=== PATIENT | female | born 1965 | race American Indian/Alaskan Native ===

== ENCOUNTER 2017-02-28 09:01 | Day surgery (SDC) | payer OTHER ==
[2017-01-07 04:00] VITALS: BMI 37.9
[2017-02-28 09:40] LABS: ADD MANUAL DIFF? NO
[2017-02-28 09:42] VITALS: RESP 18; O2SAT 100
[2017-02-28 09:42] LABS: BASO # 0.01 K/mm3 (0.0-2.0); BASO % 0.1 % (0.0-3.0); EOS # 0.2 (0.0-0.7); EOS % 2.2 % (1.5-5.0); GRAN # 4.24 (1.4-6.5); GRAN % 58.7 % (50.0-68.0); LYMPH % 27.6 % (22.0-35.0); MEAN CELL VOLUME 76.9 fL (80.0-105.0); MEAN CORPUSCULAR HEMOGLOBIN 24.8 pg (25.0-35.0); MEAN CORPUSCULAR HGB CONC 32.2 g/dl (31.0-37.0); MEAN PLATELET VOLUME 9.3 fl (7.0-11.0); MONO # 0.8 (0.1-0.6); MONO % 11.4 % (1.0-6.0); PLATELET COUNT 399 10^3/uL (120.0-450.0); RED CELL DISTRIBUTION WIDTH 17.1 % (11.5-14.5); WHITE BLOOD COUNT 7.2 10^3/ul (4.5-11.0)
[2017-02-28 09:53] LABS: BLOOD UREA NITROGEN 18 mg/dL (7-21); CALCIUM 8.8 mg/dL (8.4-10.5); CARBON DIOXIDE 27 mmol/L (21-33); CHLORIDE 102 mmol/L (98-107); GFR AFRICAN-AMERICAN > 60; GLUCOSE,RANDOM 90 mg/dL (70-110); POTASSIUM 3.7 mmol/L (3.6-5.0); SODIUM 137 mmol/L (132-148)
--- NOTE | 2017-02-28 09:53 | CP.SDSHP ---
Same Day Surgery H & P - History Proposed Procedure: picc line change. Pre-Op Diagnosis: picc line, greater than [address] - Previous Medical/Surgical History Cardiac: Hypertension, ASHD/CAD, Hx of CHF Endocrine/Metabolic: Obesity Neuro: Backaches Misc: Anemia Pain: 0. No Pain Previous Surgical History: ,cardiac cath.pace maker - Allergies Allergies: Allergies acetaminophen Allergy (Verified 01/07/17 12:59) ANGIOEDEMA cefepime Allergy (Verified 01/07/17 12:59) ANAPHYLAXIS - Physical Exam General Appearance: wnl. Vital Signs: Vital Signs 02/28/17 09:20 Temperature 98.2 F Pulse Rate 75 Respiratory 18 Rate Blood Pressure 126/82 O2 Sat by Pulse 100 Oximetry Mental Status: Alert & Oriented x3 Neuro: WNL Heart: WNL Lungs: WNL GI: WNL - {Optional Preform as Required} Other Pertinent Findings: cardiomyopathy. - Impression Impression: picc line greater than [address] - Date & Time Date: 02/28/17 Time: 09:51 Short Stay Discharge - Short Stay Discharge Admitting Diagnosis/Reason for Visit: MILRINONE INFUSION Z79 Disposition: HOME/ ROUTINE Referrals: Carisa Armstrong MD [Primary Care Provider] -
[2017-02-28 09:54] LABS: INR 1.01 (0.93-1.08)
[2017-02-28 10:05] LABS: PARTIAL THROMBOPLASTIN TIME 69.7 Seconds (23.7-30.8)
[2017-02-28] MEDS ORDERED: Lidocaine 2% Inj (20ml) ONE (10:20)
[2017-02-28 11:38] VITALS: BP 128/79; PULSE 82; TEMP 97.9
--- NOTE | 2017-02-28 16:47 | VASCULAR ---
PROCEDURE: Ultrasound fluoroscopically placed PICC line HISTORY: Ischemic cardiomyopathy. Milrinone infusion. Needs PICC PHYSICIAN(S): Phil Bolton MD. TECHNIQUE: The relative risks and indication of the procedure were explained the patient and consent obtained. Patient placed supine on the arteriogram table in a right arm prepped and draped usual sterile fashion. A tourniquet was applied at the right axilla. Under direct ultrasound guidance, single wall puncture the right basilic vein was performed. 0.018 guidewire was advanced centrally in used to measure the length to the SVC/RA junction. A 5 [place] single lumen PICC line 41 cm long was advanced the SVC/RA junction. The catheter was flushed and secured. The patient tolerated the procedure well FINDINGS: . IMPRESSION: Ultrasound fluoroscopically placed right upper extremity PICC line.
== END 2017-02-28 12:15 | disposition home or self-care (01) ==
LOC: OPSURG 09:01
PROVIDERS: ATTEND Radiology Vascular & Interventional Radiology
DX: I25.5 Ischemic cardiomyopathy (principal); I11.0 Hypertensive heart disease with heart failure; I50.9 Heart failure, unspecified; I25.10 Atherosclerotic heart disease of native coronary artery without angina pectoris; D64.9 Anemia, unspecified; E66.9 Obesity, unspecified; Z68.37 Body mass index [BMI] 37.0-37.9, adult
CPT/HCPCS: 36415; 36569; 76937; 77001; 80048; 85025; 85610; 85730; C1751; J1644

== ENCOUNTER 2017-03-26 11:39 | Emergency (ER) | payer OTHER ==
--- NOTE | 2017-03-26 11:52 | ED PDOC ---
Arrival/HPI - General Chief Complaint: Shortness Of Breath Time Seen by Provider: 03/26/17 11:42 Historian: Patient - History of Present Illness Time/Duration: Other (This morning) Symptom Onset: Gradual Symptom Course: Unchanged Severity Level: Moderate Activities at Onset: Rest Associated Symptoms (Text): 03/26/17 11:49 Patient complains of chest pain dizziness dyspnea generalized weakness and fatigue and generalized body numbness which began this morning. She reports that this happens to her when she is anemic. She is currently on a Primacor outpatient drip. She is on the heart transplant list. Past Medical History - Infectious Disease Hx of Infectious Diseases: None - Tetanus Immunization Tetanus Immunization: Unknown - Cardiac Hx Cardiac Disorders: Yes (ENDOCARDITIS,CARDIOMYOPATHY,CAD,CARD CATH.,CVA L SIDED WEAKNESS) Hx Congestive Heart Failure: Yes Hx Hypertension: Yes Hx Internal Defibrillator: Yes Hx Pacemaker: Yes Other/Comment: ON PRIMACOR DRIP. - Pulmonary Hx Respiratory Disorders: Yes Hx Chronic Obstructive Pulmonary Disease (COPD): Yes (Denied by pt 09/12/16) Hx Pneumonia: Yes Hx Sleep Apnea: Yes (Denied by pt. 09/12/16) - Neurological Hx Neurological Disorder: Yes HX Cerebrovascular Accident: Yes (LEFT SIDED WEAKNESS H/O (Denied by pt 09/12/16) ) - HEENT Hx HEENT Disorder: Yes (Wears glasses.) - Renal Hx Renal Disorder: No - Endocrine/Metabolic Hx Endocrine Disorders: No - Hematological/Oncological Hx Blood Disorders: Yes Hx Blood Transfusions: Yes Hx Blood Transfusion Reaction: No - Integumentary Hx Dermatological Disorder: No - Musculoskeletal/Rheumatological Hx Musculoskeletal Disorders: Yes Hx Back Pain: Yes Hx Falls: No - Gastrointestinal Hx Gastrointestinal Disorders: Yes Hx Gastroesophageal Reflux: Yes HX Swallowing Problems: Yes - Genitourinary/Gynecological Hx Genitourinary Disorders: No - Psychiatric Hx Psychophysiologic Disorder: No Hx Substance Use: No - Surgical History Hx Cardiac Catheterization: Yes Hx Cholecystectomy: Yes - Anesthesia Hx Anesthesia Reactions: No Hx Malignant Hyperthermia: No - Suicidal Assessment Feels Threatened In Home Enviroment: No Family/Social History - Physician Review Nursing Documentation Reviewed: Yes Family/Social History: Unknown Family HX Smoking Status: Never Smoked Hx Alcohol Use: No Hx Substance Use: No Hx Substance Use Treatment: No Allergies/Home Meds Allergies/Adverse Reactions: Allergies acetaminophen Allergy (Verified 03/26/17 11:44) ANGIOEDEMA cefepime Allergy (Verified 03/26/17 11:44) ANAPHYLAXIS Home Medications: Home Meds Medication Instructions Recorded Confirmed Furosemide [Lasix] 40 mg PO DAILY 10/17/15 03/26/17 Carvedilol [Coreg] 25 mg PO BID 03/29/16 03/26/17 Spironolactone [Aldactone] 25 mg PO BID 03/29/16 03/26/17 Milrinone [Primacor] 1.24 mg IV .MGPER HOUR 03/30/16 03/26/17 Prednisolone [Millipred] 10 mg PO DAILY 06/11/16 03/26/17 Magnesium Oxide [Mag-Ox] 400 mg PO BID 01/01/17 03/26/17 Pantoprazole [Protonix EC Tab] 40 mg PO DAILY 01/01/17 03/26/17 Epinephrine HCl [Epipen 0.3 mg IM ONCE PRN 03/26/17 03/26/17 Auto-Injector] Review of Systems - Physician Review All systems were reviewed & negative as marked: Yes - Review of Systems Constitutional: Fatigue. absent: Fevers Respiratory: SOB. absent: Cough, Wheezing Cardiovascular: Chest Pain. absent: Palpitations, Syncope Gastrointestinal: absent: Abdominal Pain, Diarrhea, Nausea, Vomiting Neurological: Dizziness. absent: Headache, Focal Weakness Physical Exam Vital Signs Temp Pulse Resp BP Pulse Ox 03/26/17 12:02 18 100 03/26/17 11:50 98.0 F 89 18 142/90 100 Temperature: Afebrile Blood Pressure: Normal Pulse: Regular Respiratory Rate: Normal Appearance: Positive for: Well-Appearing, Non-Toxic, Comfortable, Other (Obese) Pain Distress: None Mental Status: Positive for: Alert and Oriented X 3 - Systems Exam Head: Present: Atraumatic, Normocephalic Pupils: Present: PERRL Extroacular Muscles: Present: EOMI Conjunctiva: Present: Normal Mouth: Present: Moist Mucous Membranes Pharnyx: No: ERYTHEMA, EXUDATE, TONSILS ENLARGED Neck: Present: Normal Range of Motion. No: MIDLINE TENDERNESS, Paraspinal Tenderness Respiratory/Chest: Present: Clear to Auscultation, Good Air Exchange, Decreased Breath Sounds. No: Respiratory Distress, Accessory Muscle Use Cardiovascular: Present: Regular Rate and Rhythm, Normal S1, S2. No: Murmurs Abdomen: Present: Normal Bowel Sounds. No: Tenderness, Distention, Peritoneal Signs, Rebound, Guarding Back: Present: Normal Inspection Upper Extremity: Present: Normal Inspection. No: Cyanosis, Edema Lower Extremity: Present: Normal Inspection. No: Edema Neurological: Present: GCS=15, CN II-XII Intact, Speech Normal, Motor Func Grossly Intact Skin: Present: Warm, Dry, Normal Color. No: Rashes Psychiatric: Present: Alert, Oriented x 3, Normal Insight, Normal Concentration Medical Decision Making ED Course and Treatment: 03/26/17 11:51 EKG shows normal sinus rhythm rate approximately [address] or T-wave changes 03/26/17 13:40 Patient's hemoglobin is adequate and similar to previous. Her workup is unrevealing. Patient wants to go home and will be discharged home accompanied by her to follow up with PMD and mailroom personnel. Follow up in ER as needed. - Lab Interpretations Lab Results: 03/26/17 12:00 03/26/17 12:00 Lab Results 03/26/17 12:00: Sodium 138, Potassium 4.0, Chloride 104, Carbon Dioxide 28, Anion Gap 10, BUN 19, Creatinine 0.8, Est GFR ( Amer) > 60, Est GFR (Non- Af Amer) > 60, Random Glucose 96, Calcium 8.9, Total Bilirubin 0.6, AST 38, ALT 38, Alkaline Phosphatase 67, Lactate Dehydrogenase 478, Total Creatine Kinase 28 L, Troponin I < 0.01, NT-Pro-B Natriuret Pep 1480 H, Total Protein 7.1, Albumin 3.6, Globulin 3.5, Albumin/Globulin Ratio 1.0 L 03/26/17 12:00: PT 10.7, INR 0.99, APTT 26.8 03/26/17 12:00: WBC 7.5, RBC 3.92, Hgb 9.6 L, Hct 30.2 L, MCV 77.0 L, MCH 24.5 L , MCHC 31.8, RDW 17.4 H, Plt Count 332, MPV 9.9, Gran % 71.7 H, Lymph % (Auto) 17.0 L, [place] % (Auto) 9.6 H, Eos % (Auto) 1.6, Baso % (Auto) 0.1, Gran # 5.39, Lymph # 1.3, [place] # 0.7 H, Eos # 0.1, Baso # 0.01 - RAD Interpretation Radiology Orders: 03/26/17 11:48 CHEST PORTABLE [RAD] Stat X-ray chest 1 view shows a device present. No infiltrate effusion or cardiomegaly. No CHF. Paste Worker: ED Physician Disposition/Present on Arrival - Present on Arrival Any Indicators Present on Arrival: No History of DVT/PE: No History of Uncontrolled Diabetes: No Urinary Catheter: No History of Decub. Ulcer: No History Surgical Site Infection Following: None - Disposition Have Diagnosis and Disposition been Completed?: Yes Diagnosis: Weakness, Chest pain, Anemia, Dyspnea Disposition: HOME/ ROUTINE Disposition Time: 13:41 Patient Plan: Discharge Condition: FAIR Discharge Instructions (ExitCare): Weakness (ED), Chest Pain (ED), Dyspnea (ED)
[2017-03-26 11:53] VITALS: RESP 18; TEMP 98; BMI 37.5
[2017-03-26 12:16] LABS: ADD MANUAL DIFF? NO
[2017-03-26 12:39] LABS: ALKALINE PHOSPHATASE 67 U/L (38-133); ALT/SGPT 38 U/L (7-56); AST/SGOT 38 U/L (15-39); BILIRUBIN,TOTAL 0.6 mg/dL (0.2-1.3); BLOOD UREA NITROGEN 19 mg/dL (7-21); CALCIUM 8.9 mg/dL (8.4-10.5); CARBON DIOXIDE 28 mmol/L (21-33); CHLORIDE 104 mmol/L (98-107); GFR AFRICAN-AMERICAN > 60; GLUCOSE,RANDOM 96 mg/dL (70-110); SODIUM 138 mmol/L (132-148); TOTAL PROTEIN 7.1 g/dL (5.8-8.3)
[2017-03-26 12:48] LABS: TROPONIN I < 0.01 ng/mL
[2017-03-26 12:59] LABS: BASO # 0.01 K/mm3 (0.0-2.0); BASO % 0.1 % (0.0-3.0); EOS # 0.1 (0.0-0.7); EOS % 1.6 % (1.5-5.0); GRAN # 5.39 (1.4-6.5); GRAN % 71.7 % (50.0-68.0); HEMATOCRIT 30.2 % (36.0-48.0); LYMPH # 1.3 (1.2-3.4); MEAN CORPUSCULAR HEMOGLOBIN 24.5 pg (25.0-35.0); MEAN CORPUSCULAR HGB CONC 31.8 g/dl (31.0-37.0); MEAN PLATELET VOLUME 9.9 fl (7.0-11.0); MONO # 0.7 (0.1-0.6); MONO % 9.6 % (1.0-6.0); PLATELET COUNT 332 10^3/uL (120.0-450.0); RED CELL DISTRIBUTION WIDTH 17.4 % (11.5-14.5); WHITE BLOOD COUNT 7.5 10^3/ul (4.5-11.0)
[2017-03-26 13:02] LABS: INR 0.99 (0.93-1.08); PARTIAL THROMBOPLASTIN TIME 26.8 Seconds (23.7-30.8)
--- NOTE | 2017-03-26 13:42 | RAD ---
HISTORY: cp COMPARISON: 01/07/2017 FINDINGS: LUNGS: No active pulmonary disease. PLEURA: No significant pleural effusion identified, no pneumothorax apparent. CARDIOVASCULAR: Normal heart size. AICD noted. Right PICC catheter. OSSEOUS STRUCTURES: No significant abnormalities. VISUALIZED UPPER ABDOMEN: Normal. OTHER FINDINGS: None. IMPRESSION: No active disease.
[2017-03-26 14:18] VITALS: BP 136/88; PULSE 82; O2SAT 98
--- NOTE | 2017-03-27 01:32 | CARD ---
APPROVED REPORT EKG Measurement Heart [id number] <Conclusion> Normal sinus rhythm Left ventricular hypertrophy with repolarization abnormality Abnormal ECG
== END 2017-03-26 14:18 | disposition home or self-care (01) ==
LOC: ED 11:39
DX: R07.9 Chest pain, unspecified (principal); D64.9 Anemia, unspecified; R06.00 Dyspnea, unspecified; R53.1 Weakness; I10 Essential (primary) hypertension; Z95.0 Presence of cardiac pacemaker

== ENCOUNTER 2017-04-13 01:07 | Emergency (ER) | payer OTHER ==
[2017-04-13 01:21] VITALS: TEMP 98.2
--- NOTE | 2017-04-13 01:28 | ED PDOC ---
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 Patient also reports a flushed sensation. Patient denies any fever, chills, chest pain, nausea, vomiting, diarrhea, urinary symptoms, back pain, neck pain, headache, dizziness, or any other complaints. Patient is currently on heart transplant list. PMD: Dr. Giovanni Armstrong ([facility]) Past Medical History - Provider Review Nursing Documentation Reviewed: Yes - Infectious Disease Hx of Infectious Diseases: None - Tetanus Immunization Tetanus Immunization: Unknown - Cardiac Hx Cardiac Disorders: Yes (ENDOCARDITIS,CARDIOMYOPATHY,CAD,CARD CATH.,CVA L SIDED WEAKNESS) Hx Congestive Heart Failure: Yes Hx Hypertension: Yes Hx Internal Defibrillator: Yes Hx Pacemaker: Yes Other/Comment: ON PRIMACOR DRIP. - Pulmonary Hx Respiratory Disorders: Yes Hx Chronic Obstructive Pulmonary Disease (COPD): Yes (Denied by pt 09/12/16) Hx Pneumonia: Yes Hx Sleep Apnea: Yes (Denied by pt. 09/12/16) - Neurological Hx Neurological Disorder: Yes HX Cerebrovascular Accident: Yes (LEFT SIDED WEAKNESS H/O (Denied by pt 09/12/16) ) - HEENT Hx HEENT Disorder: Yes (Wears glasses.) - Renal Hx Renal Disorder: No - Endocrine/Metabolic Hx Endocrine Disorders: No - Hematological/Oncological Hx Blood Disorders: Yes Hx Blood Transfusions: Yes Hx Blood Transfusion Reaction: No - Integumentary Hx Dermatological Disorder: No - Musculoskeletal/Rheumatological Hx Musculoskeletal Disorders: Yes Hx Back Pain: Yes Hx Falls: No - Gastrointestinal Hx Gastrointestinal Disorders: Yes Hx Gastroesophageal Reflux: Yes HX Swallowing Problems: Yes - Genitourinary/Gynecological Hx Genitourinary Disorders: No - Psychiatric Hx Psychophysiologic Disorder: No Hx Substance Use: No - Surgical History Hx Cardiac Catheterization: Yes Hx Cholecystectomy: Yes - Anesthesia Hx Anesthesia Reactions: No Hx Malignant Hyperthermia: No - Suicidal Assessment Feels Threatened In Home Enviroment: No Family/Social History - Physician Review Nursing Documentation Reviewed: Yes Family/Social History: No Known Family HX Smoking Status: Never Smoked Hx Alcohol Use: No Hx Substance Use: No Hx Substance Use Treatment: No Allergies/Home Meds Allergies/Adverse Reactions: Allergies acetaminophen Allergy (Verified 03/26/17 11:44) ANGIOEDEMA cefepime Allergy (Verified 03/26/17 11:44) ANAPHYLAXIS Home Medications: Home Meds Medication Instructions Recorded Confirmed Furosemide [Lasix] 40 mg PO DAILY 10/17/15 03/26/17 Carvedilol [Coreg] 25 mg PO BID 03/29/16 03/26/17 Spironolactone [Aldactone] 25 mg PO BID 03/29/16 03/26/17 Milrinone [Primacor] 1.24 mg IV .MGPER HOUR 03/30/16 03/26/17 Prednisolone [Millipred] 10 mg PO DAILY 06/11/16 03/26/17 Magnesium Oxide [Mag-Ox] 400 mg PO BID 01/01/17 03/26/17 Pantoprazole [Protonix EC Tab] 40 mg PO DAILY 01/01/17 03/26/17 Epinephrine HCl [Epipen 0.3 mg IM ONCE PRN 03/26/17 03/26/17 Auto-Injector] Review of Systems - Physician Review All systems were reviewed & negative as marked: Yes - Review of Systems Constitutional: Normal. absent: Fevers Eyes: Normal ENT: Normal Respiratory: SOB. absent: Cough Cardiovascular: Normal. absent: Chest Pain Gastrointestinal: Normal. absent: Abdominal Pain, Diarrhea, Nausea, Vomiting Genitourinary Female: Normal. absent: Dysuria, Frequency, Hematuria, Urine Output Changes Musculoskeletal: Normal. absent: Back Pain, Neck Pain Skin: Normal. absent: Rash Neurological: Normal. absent: Headache, Dizziness Endocrine: Normal Hemo/Lymphatic: Normal Psychiatric: Normal Physical Exam Vital Signs Reviewed: Yes Temperature: Afebrile Blood Pressure: Hypertensive Pulse: Regular Respiratory Rate: Normal Appearance: Positive for: Well-Appearing, Non-Toxic, Comfortable Pain Distress: None Mental Status: Positive for: Alert and Oriented X 3 - Systems Exam Head: Present: Atraumatic, Normocephalic Pupils: Present: PERRL Extroacular Muscles: Present: EOMI Conjunctiva: Present: Normal Mouth: Present: Moist Mucous Membranes Neck: Present: Normal Range of Motion Respiratory/Chest: Present: Wheezes. No: Respiratory Distress, Accessory Muscle Use Cardiovascular: Present: Regular Rate and Rhythm, Normal S1, S2. No: Murmurs Abdomen: Present: Normal Bowel Sounds. No: Tenderness, Distention, Peritoneal Signs Back: Present: Normal Inspection Upper Extremity: Present: Normal Inspection. No: Cyanosis, Edema Lower Extremity: Present: Normal Inspection. No: Edema Neurological: Present: GCS=15, CN II-XII Intact, Speech Normal Skin: Present: Warm, Dry, Normal Color. No: Rashes Psychiatric: Present: Alert, Oriented x 3, Normal Insight, Normal Concentration Vital Signs Temp Pulse Resp BP Pulse Ox 04/13/17 14:32 76 15 132/80 100 04/13/17 10:55 75 15 131/85 100 04/13/17 09:17 76 15 132/90 100 04/13/17 07:42 82 154/104 H 04/13/17 06:53 146/103 H 04/13/17 06:49 89 20 146/103 H 100 04/13/17 04:19 73 17 127/88 98 04/13/17 04:06 123/77 04/13/17 01:35 22 100 04/13/17 01:28 77 20 137/76 100 04/13/17 01:20 98.2 F 86 18 172/98 H 99 Medical Decision Making - Lab Interpretations I have reviewed the lab results: Yes - RAD Interpretation Engineering Coordinator: ED Physician - EKG Interpretation Interpreted by ED Physician: Yes Type: 12 lead EKG ED Course and Treatment: Leaving Against Medical Advice (AMA): This patient is choosing to leave against medical advice. I have personally explained to the patient that choosing to do so may result in permanent bodily harm or . I have discussed at great length that without further evaluation and monitoring there may be unforeseen circumstances and/or deterioration causing permanent bodily harm or as a result of their choice. The patient is alert, oriented, and shows the mental capacity to make clear decisions regarding the patients health care at this time. The patient continues to wish to leave against medical advice. In light of the patients decision to leave AMA, follow-up has been arranged and the patient is aware of the importance of following up as instructed. The patient has been advised that they should return to the ED immediately if they change their mind at any time, or if their condition begins to change or worsen in any way. (SabaGarett L) 04/13/17 01:28 Impression: 51 year old female complaining of shortness of breath. Differential Diagnosis include but are not limited to: CHF vs. pneumonia vs. ACS. vs. dyspnea Plan: -- EKG -- Chest X-ray -- Labs, cardiac enzymes, BNP, VBG, blood cultures -- Urinalysis -- Reassess and disposition Prior Visits: Notes and results from previous visits were reviewed. Progress Notes: Reviewed EKG, NSR at [address]pm. LVH. Non-specific ST/T wave changes. 04/13/17 03:32 Reviewed radiology, Chest X-ray shows cardiomegaly. 04/13/17 04:[address] Armstrong, who is aware and agrees with plan. Accepts pt in to her service. Pt will go to Telemetry observation for CHF. 04/13/17 06:00 Pt requesting transfer to [facility] 04/13/17 06:[address] Botello, [facility] hem inspector covering for pt's hem inspector Dr. Kay, who is aware and accept pt on transfer. (Jet Jerez) - Lab Interpretations Microbiology Results: Microbiology Results 04/13/17 01:56 Blood-Venous Blood Culture - Preliminary NO GROWTH AFTER 48 HOURS 04/13/17 01:35 Blood-Venous Blood Culture - Preliminary NO GROWTH AFTER 48 HOURS Lab Results: 04/13/17 01:35 04/13/17 01:35 Lab Results 04/13/17 02:20: Urine Color Yellow, Urine Appearance Clear, Urine pH 6.0, Ur Specific [place] 1.025, Urine Protein Trace H, Urine Glucose (UA) Negative, Urine Ketones Negative, Urine Blood Negative, Urine Nitrate Negative, Urine Bilirubin Negative, Urine Urobilinogen 1.0 H, Ur Leukocyte Esterase Negative, Urine RBC 0 - 2, Urine WBC 0 - 2, Ur Epithelial Cells 3 - 4 04/13/17 01:35: Sodium 137, Chloride 105, Potassium 3.6, Carbon Dioxide 23, Anion Gap 13, BUN 14, Creatinine 0.9, Est GFR ( Amer) > 60, Est GFR (Non- Af Amer) > 60, Random Glucose 120 H, Calcium 9.4, Total Bilirubin 0.4, AST 52 H , ALT 40, Alkaline Phosphatase 86, Lactate Dehydrogenase 527, Total Creatine Kinase 41, Troponin I 0.02 D, NT-Pro-B Natriuret Pep 1630 H, Total Protein 7.5 , Albumin 3.9, Globulin 3.6, Albumin/Globulin Ratio 1.1 04/13/17 01:35: pO2 55, VBG pH 7.37, VBG pCO2 42.0, VBG HCO3 24.3, VBG Total CO2 25.6, VBG O2 Sat (Calc) 92.0 H, VBG Base Excess -1.1 L, VBG Potassium 3.5 L , Sodium 137.0, Chloride 109.0 H, Glucose 117 H, Lactate 0.7, FiO2 21.0, Venous Blood Potassium 3.5 L 04/13/17 01:35: PT 10.8, INR 1.00, APTT 27.5 04/13/17 01:35: WBC 6.7, RBC 4.08, Hgb 10.1 L, Hct 31.7 L, MCV 77.7 L, MCH 24.8 L, MCHC 31.9, RDW 17.9 H, Plt Count 349, MPV 9.2, Gran % 73.7 H, Lymph % (Auto) 17.7 L, [place] % (Auto) 6.9 H, Eos % (Auto) 1.6, Baso % (Auto) 0.1, Gran # 4.94, Lymph # 1.2, [place] # 0.5, Eos # 0.1, Baso # 0.01 - RAD Interpretation Radiology Orders: 04/13/17 01:33 CHEST PORTABLE [RAD] Stat - Medication Orders Current Medication Orders: Discontinued Medications Furosemide (Lasix) 40 mg IVP ONCE ONE Stop: 04/13/17 03:34 Last Admin: 04/13/17 04:06 Dose: 40 mg Furosemide (Lasix) 20 mg IVP ONCE ONE Stop: 04/13/17 06:51 Last Admin: 04/13/17 06:53 Dose: 20 mg Milrinone Lactate/Dextrose (Primacor 20mg/100ml D5w) 100 mls @ 6.368 mls/hr IV .[id number] PRN; Protocol; 0.2 MCG/KG/MIN PRN Reason: TITRATE PER MD ORDER Last Admin: 04/13/17 07:42 Dose: 6.368 mls/hr Morphine Sulfate (Morphine) 2 mg IVP STAT STA Stop: 04/13/17 06:51 Last Admin: 04/13/17 06:54 Dose: 2 mg - Scribe Statement The provider has reviewed the documentation as recorded by the Scribe - Scribe Statement Grecia Merrill All medical record entries made by the Scribe were at my direction and personally dictated by me. I have reviewed the chart and agree that the record accurately reflects my personal performance of the history, physical exam, medical decision making, and the department course for this patient. I have also personally directed, reviewed, and agree with the discharge instructions and disposition. (Jet Jerez) Disposition/Present on Arrival - Present on Arrival Any Indicators Present on Arrival: No History of DVT/PE: No History of Uncontrolled Diabetes: No Urinary Catheter: No History of Decub. Ulcer: No History Surgical Site Infection Following: None - Disposition Have Diagnosis and Disposition been Completed?: Yes Disposition Time: 07:00 - Disposition Diagnosis: Congestive heart failure (CHF) Disposition: AGAINST MEDICAL ADVICE Condition: FAIR Discharge Instructions (ExitCare): Heart Failure (ED) Additional Instructions: [Patient Name], thank you for letting us take care of you today. Your provider was [Provider Name Here]. You were treated for [Diagnosis Here]. The emergency medical care you received today was directed at your acute symptoms. You chose to leave Against medical advice and are advised to Return to the Emergency Department with any concerns. Please contact your doctor or call one of the physicians/clinics you have been referred to that are listed on the Patient Visit Information form that is included in your discharge packet. Bring any paperwork you were given at discharge with you along with any medications you are taking to your follow up visit. Our treatment cannot replace ongoing medical care by a primary care provider (PCP) outside of the emergency department. Thank you for allowing the [facility] team to be part of your care today. If you had an X-Ray or CT scan: A Radiologist will review the ED reading if any change in treatment is needed we will contact you. If you had a blood, urine, or wound culture: It will take several days for the results, if any change in treatment is needed we will contact you. If you had an STI test: It will take 48 hours for the results. Please call after 1 week if you have not heard back. Referrals: Carisa Armstrong MD [Primary Care Provider] - Follow up with primary Forms: [facility] (Nepali), WORK NOTE
[2017-04-13 01:45] LABS: ADD MANUAL DIFF? NO
[2017-04-13 01:50] LABS: BASO # 0.01 K/mm3 (0.0-2.0); BASO % 0.1 % (0.0-3.0); EOS # 0.1 (0.0-0.7); EOS % 1.6 % (1.5-5.0); GRAN # 4.94 (1.4-6.5); GRAN % 73.7 % (50.0-68.0); HEMATOCRIT 31.7 % (36.0-48.0); LYMPH # 1.2 (1.2-3.4); LYMPH % 17.7 % (22.0-35.0); MEAN CELL VOLUME 77.7 fL (80.0-105.0); MEAN CORPUSCULAR HEMOGLOBIN 24.8 pg (25.0-35.0); MEAN CORPUSCULAR HGB CONC 31.9 g/dl (31.0-37.0); MEAN PLATELET VOLUME 9.2 fl (7.0-11.0); MONO # 0.5 (0.1-0.6); MONO % 6.9 % (1.0-6.0); PLATELET COUNT 349 10^3/uL (120.0-450.0); RED CELL DISTRIBUTION WIDTH 17.9 % (11.5-14.5); WHITE BLOOD COUNT 6.7 10^3/ul (4.5-11.0)
[2017-04-13 02:00] LABS: PARTIAL THROMBOPLASTIN TIME 27.5 Seconds (23.7-30.8)
[2017-04-13 02:03] LABS: VENOUS BLOOD GAS BASE EXCESS -1.1 mmol/L (0.0-2.0); VENOUS BLOOD PH 7.37 (7.32-7.43)
[2017-04-13 02:14] LABS: ALB/GLOB RATIO 1.1 (1.1-1.8); ALKALINE PHOSPHATASE 86 U/L (38-133); ALT/SGPT 40 U/L (7-56); AST/SGOT 52 U/L (15-39); BILIRUBIN,TOTAL 0.4 mg/dL (0.2-1.3); BLOOD UREA NITROGEN 14 mg/dL (7-21); CALCIUM 9.4 mg/dL (8.4-10.5); CARBON DIOXIDE 23 mmol/L (21-33); CHLORIDE 105 mmol/L (98-107); GFR AFRICAN-AMERICAN > 60; GLUCOSE,RANDOM 120 mg/dL (70-110); POTASSIUM 3.6 mmol/L (3.6-5.0); SODIUM 137 mmol/L (132-148); TOTAL PROTEIN 7.5 g/dL (5.8-8.3)
[2017-04-13 02:26] LABS: TROPONIN I 0.02 ng/mL
[2017-04-13 02:37] LABS: URINE BILIRUBIN NEGATIVE (NEGATIVE); URINE BLOOD NEGATIVE (NEGATIVE); URINE GLUCOSE (UA) NEGATIVE (NEGATIVE); URINE KETONE NEGATIVE (NEGATIVE); URINE LEUKOCYTE ESTERASE NEGATIVE Leu/uL (NEGATIVE); URINE PROTEIN TRACE mg/dL (<30 mg/dL)
[2017-04-13 02:49] LABS: URINE COLOR YELLOW (YELLOW)
[2017-04-13 02:50] LABS: URINE APPEARANCE CLEAR (CLEAR)
[2017-04-13 02:54] LABS: URINE RBC 0 - 2 /hpf (0-2); URINE WBC 0 - 2 /hpf (0-6)
[2017-04-13 06:50] VITALS: O2SAT 100
[2017-04-13] MEDS ORDERED: Morphine 2 mg/ml ISec IVP STA (06:50)
[2017-04-13] MEDS ORDERED: Milrinone 20mg/100ml D5W 100 ML IV PRN (07:33)
--- NOTE | 2017-04-13 08:24 | RAD ---
HISTORY: Shortness of breath COMPARISON: 03/26/2017 FINDINGS: LUNGS: The lungs are clear. PLEURA: No significant pleural effusion identified, no pneumothorax apparent. CARDIOVASCULAR: There is moderate cardiomegaly. There is stable position of a left-sided AICD. OSSEOUS STRUCTURES: No significant abnormalities. VISUALIZED UPPER ABDOMEN: Normal. OTHER FINDINGS: None. IMPRESSION: No acute findings.
[2017-04-13 09:18] VITALS: RESP 15
--- NOTE | 2017-04-13 10:49 | CARD ---
APPROVED REPORT EKG Measurement Heart [id number] [place] [id number] <Conclusion> Normal sinus rhythm IVCD LVH STTW changes c/w ischemia Prolonged QTC No change
--- NOTE | 2017-04-13 10:59 | CARD ---
APPROVED REPORT EKG Measurement Heart [id number] [place] 154P57 [id number] <Conclusion> Normal sinus rhythm Possible Left atrial enlargement IVCD Left ventricular hypertrophy with repolarization abnormality Prolonged QT No change
[2017-04-13 14:33] VITALS: BP 132/80; PULSE 76
--- NOTE | 2017-04-17 09:47 | HP ---
This is a history and physical for 04/13/2017. CHIEF COMPLAINT: Chest pain, shortness of breath. 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 Came to the Emergency Department by family complaining of shortness of breath. The patient also reports a flushing sensation. The patient denies any fever, chills. No nausea, vomiting, diarrhea. No headache, no dizziness. The patient is currently on heart transplant list in [facility]. His x ray inspector is Dr. Kay in [facility]. That is why she wants to be transferred there. ER working on that. Transferred patient to [facility]. The patient was seen and examined on 04/13/2017. PAST MEDICAL HISTORY: Endocarditis, cardiomyopathy, coronary artery disease, cardiac catheterization, CVA, left-sided weakness, congestive heart failure, hypertension, internal defibrillator, pacemaker, is on Primacor drip, COPD, pneumonia, sleep apnea, obesity, history of blood transfusion due to repeated anemia, history of back pain, cholecystectomy, Bachet disease, is under care of the press pipe inspector. FAMILY HISTORY: Father and mother noncontributory. HABITS: Never smoked, no drugs, no ethanol. ALLERGIES: THE PATIENT IS ALLERGIC WITH ACETAMINOPHEN, CEFEPIME. HOME MEDICATIONS: Lasix, Coreg, Aldactone, Primacor, prednisone for Bachet disease, magnesium, Protonix, epinephrine. REVIEW OF SYSTEMS: The patient is seen and examined on the bedside on 2016 early in the morning. Still complaining about shortness of breath and feeling of flushing. No fever, no chills. No back pain, no rash. No headache , no dizziness. Complaining of shortness of breath, but no coughing. No fever , no chills. PHYSICAL EXAMINATION: VITAL SIGNS: Temperature 98.2, pulse 86, respiratory rate 18, blood pressure 172/98, repeat is 132/80, pulse oximetry 100% on room air. HEENT: Head normocephalic, atraumatic. Eyes: PERRLA. Extraocular muscles intact. Conjunctivae clear. Nose patent. Mucous membranes moist. NECK: Supple. No carotid bruit, no JVD, no thyromegaly. CHEST: Bilaterally symmetrical. HEART: S1, S2 positive. LUNGS: Clear to auscultation. ABDOMEN: Soft. Bowel sounds positive. No organomegaly. EXTREMITIES: No edema, no cyanosis. NEUROLOGIC: The patient is awake, alert, moving all 4 extremities. No focal deficits. LABORATORIES: White blood cells 6.7, hemoglobin 10.1, hematocrit 31.7, platelets 345. Sodium 137, potassium 3.6, BUN 14, creatinine 0.9, glucose 120. ASSESSMENT AND PLAN: The patient is a 51-year-old lady with anemia with hyperglycemia, is admitted for shortness of breath, giving Lasix, is on Primacor drip, got morphine, have congestive heart failure. 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 Came in [facility] for shortness of breath. Admitted for congestive heart failure. Has history of endocarditis, got complete treatment, anemia, multiple times blood transfusion. Plan was to admit the patient, call cardiology and pulmonary consult, but patient decided to go to [facility] because her cardiology team is there under Dr. Kay's service. [facility] called [facility] and tried to do the transfer. Sometime patient choose to leave against medical advice. Dr. Garett Walter , personally explained to the patient that choosing to do so may result in permanent bodily harm or . Dr. Garett Walter discussed at great length that without further evaluation and monitoring, that there may be unforeseen circumstances and deterioration causing permanent body harm or as a result of their choice. The patient is alert, oriented x 3, made clear decision regarding the patient's healthcare at that time. The patient continued to wish to leave against medical advice. In light of the patient's decision to leave against medical advice, followup has been arranged and the patient is aware the importance of following up instructions. The patient has been advised that they should return to ED if they change their mind or any time if their condition begins to change or worsen in any way. Even I had length of time discussion done with the patient, but we will follow up. Carisa Armstrong MD cc: [id number] TT: 04/17/2017 09:46:01 en MTDD
== END 2017-04-13 15:33 | disposition left against medical advice (07) ==
LOC: ED 01:07 → UNDOADMOB 05:15 → ERH 05:15 → ED 15:33
DX: I50.9 Heart failure, unspecified (principal); I42.9 Cardiomyopathy, unspecified; E11.9 Type 2 diabetes mellitus without complications; I10 Essential (primary) hypertension; J44.9 Chronic obstructive pulmonary disease, unspecified; Z95.0 Presence of cardiac pacemaker; I25.10 Atherosclerotic heart disease of native coronary artery without angina pectoris
CPT/HCPCS: 71010; 80053; 81001; 82550; 82803; 83615; 83880; 84484; 85025; 85610; 85730; 87040; 93005; 96365; 96366; 96375; 96376; 99285; J1940; J2260; J2270

== ENCOUNTER 2017-06-13 18:30 | Inpatient (IN) | payer OTHER ==
[2017-06-13] MEDS ORDERED: Sodium Chloride 0.9% 1,000 ML IV STA (19:25)
--- NOTE | 2017-06-13 19:32 | ED PDOC ---
Arrival/HPI - General Chief Complaint: Fever Time Seen by Provider: 06/13/17 19:16 - History of Present Illness Narrative History of Present Illness (Text): 06/13/17 19:31 Patient is a 52 y/o F with CHF, on milirone drip via R sided picc line, presenting with fever. She reports fever that started 2 days ago. Denies dysuria, cough, abdominal pain, diarrhea. PMD: Dr. Armstrong Past Medical History - Provider Review Nursing Documentation Reviewed: Yes - Infectious Disease Hx of Infectious Diseases: None - Tetanus Immunization Tetanus Immunization: Unknown - Cardiac Hx Cardiac Disorders: Yes (ENDOCARDITIS,CARDIOMYOPATHY,CAD,CARD CATH.,CVA L SIDED WEAKNESS) Hx Congestive Heart Failure: Yes Hx Hypertension: Yes Hx Internal Defibrillator: Yes Hx Pacemaker: Yes Other/Comment: ON PRIMACOR DRIP. - Pulmonary Hx Respiratory Disorders: Yes Hx Chronic Obstructive Pulmonary Disease (COPD): Yes Hx Pneumonia: Yes Hx Sleep Apnea: Yes - Neurological Hx Neurological Disorder: Yes HX Cerebrovascular Accident: Yes (LEFT SIDED WEAKNESS H/O (Denied by pt 09/12/16) ) - HEENT Hx HEENT Disorder: Yes (Wears glasses.) - Renal Hx Renal Disorder: No - Endocrine/Metabolic Hx Endocrine Disorders: No - Hematological/Oncological Hx Blood Disorders: Yes Hx Blood Transfusions: Yes Hx Blood Transfusion Reaction: No - Integumentary Hx Dermatological Disorder: No - Musculoskeletal/Rheumatological Hx Musculoskeletal Disorders: Yes Hx Back Pain: Yes Hx Falls: No Other/Comment: Bakers Disease - Gastrointestinal Hx Gastrointestinal Disorders: Yes Hx Gastroesophageal Reflux: Yes HX Swallowing Problems: Yes - Genitourinary/Gynecological Hx Genitourinary Disorders: No - Psychiatric Hx Psychophysiologic Disorder: No Hx Substance Use: No - Surgical History Hx Cardiac Catheterization: Yes Hx Section: Yes (x3) Hx Cholecystectomy: Yes Other/Comment: Defib - Anesthesia Hx Anesthesia Reactions: No Hx Malignant Hyperthermia: No - Suicidal Assessment Feels Threatened In Home Enviroment: No Family/Social History - Physician Review Nursing Documentation Reviewed: Yes Family/Social History: No Known Family HX Smoking Status: Never Smoked Hx Alcohol Use: No Hx Substance Use: No Hx Substance Use Treatment: No Allergies/Home Meds Allergies/Adverse Reactions: Allergies acetaminophen Allergy (Verified 03/26/17 11:44) ANGIOEDEMA cefepime Allergy (Verified 03/26/17 11:44) ANAPHYLAXIS Home Medications: Home Meds Medication Instructions Recorded Confirmed Furosemide [Lasix] 40 mg PO DAILY 10/17/15 03/26/17 Carvedilol [Coreg] 25 mg PO BID 03/29/16 03/26/17 Spironolactone [Aldactone] 25 mg PO BID 03/29/16 03/26/17 Milrinone [Primacor] 1.24 mg IV .MGPER HOUR 03/30/16 03/26/17 Prednisolone [Millipred] 10 mg PO DAILY 06/11/16 03/26/17 Magnesium Oxide [Mag-Ox] 400 mg PO BID 01/01/17 03/26/17 Pantoprazole [Protonix EC Tab] 40 mg PO DAILY 01/01/17 03/26/17 Epinephrine HCl [Epipen 0.3 mg IM ONCE PRN 03/26/17 03/26/17 Auto-Injector] Review of Systems - Physician Review All systems were reviewed & negative as marked: Yes - Review of Systems Constitutional: Fevers Respiratory: absent: SOB, Cough, Sputum, Wheezing Cardiovascular: absent: Chest Pain, Palpitations, Edema, Calf Pain, HALL, Orthopnea, Syncope Gastrointestinal: absent: Abdominal Pain, Constipation, Diarrhea, Nausea, Vomiting Genitourinary Female: absent: Dysuria, Urine Output Changes Musculoskeletal: absent: Neck Pain Skin: absent: Rash Neurological: absent: Headache Physical Exam Vital Signs Reviewed: Yes Vital Signs Temp Pulse Resp BP Pulse Ox 06/13/17 21:00 101.6 F H 06/13/17 18:45 101.6 F H 110 H 18 130/70 100 Temperature: Febrile Blood Pressure: Normal Pulse: Tachycardic Respiratory Rate: Normal Appearance: Positive for: Well-Appearing, Non-Toxic, Comfortable Pain Distress: None Mental Status: Positive for: Alert and Oriented X 3 - Systems Exam Head: Present: Atraumatic, Normocephalic Pupils: Present: PERRL Extroacular Muscles: Present: EOMI Conjunctiva: Present: Normal Mouth: Present: Moist Mucous Membranes Neck: Present: Normal Range of Motion Respiratory/Chest: Present: Clear to Auscultation, Good Air Exchange. No: Respiratory Distress, Accessory Muscle Use Cardiovascular: Present: Normal S1, S2, Tachycardic. No: Murmurs Abdomen: No: Tenderness, Distention, Rebound, Guarding Upper Extremity: Present: Normal Inspection Lower Extremity: Present: Normal Inspection. No: Edema Neurological: Present: GCS=15, CN II-XII Intact Skin: Present: Warm, Dry. No: Rashes Psychiatric: Present: Alert, Oriented x 3 Medical Decision Making ED Course and Treatment: 06/13/17 21:24 UA negative for infection but shows hematuria. Cxray negative for infiltrate. Labs show normal wbc and lactate. No source for fever. Likely catheter. Will give vancomycin and transfer to tele. Dr. Armstrong aware and requesting ID consult. Will arrange removal and replacement of picc in the morning. Antibiotics started. - Lab Interpretations Lab Results: 06/13/17 18:55 06/13/17 18:55 Lab Results 06/13/17 21:00: Urine Color Yellow, Urine Appearance Clear, Urine pH 6.0, Ur Specific [place] 1.020, Urine Protein Negative, Urine Glucose (UA) Negative, Urine Ketones Negative, Urine Blood Moderate H, Urine Nitrate Negative, Urine Bilirubin Negative, Urine Urobilinogen 0.2, Ur Leukocyte Esterase Negative, Urine RBC 0 - 2, Urine WBC 2 - 5, Ur Epithelial Cells 1 - 3 06/13/17 18:55: Sodium 137, Chloride 105, Potassium 4.6, Carbon Dioxide 22, Anion Gap 15, BUN 16, Creatinine 1.0, Est GFR ( Amer) > 60, Est GFR (Non- Af Amer) 58, Random Glucose 115 H, Calcium 8.5, Total Bilirubin 0.7, AST 42 H, ALT 36, Alkaline Phosphatase 74, Total Protein 7.2, Albumin 3.5, Globulin 3.6, Albumin/Globulin Ratio 1.0 L 06/13/17 18:55: pO2 41, VBG pH 7.40, VBG pCO2 42.0, VBG HCO3 26.0, VBG Total CO2 27.3, VBG O2 Sat (Calc) 87.4 H, VBG Base Excess 1.0, VBG Potassium 4.9, Sodium 139.0, Chloride 110.0 H, Glucose 128 H, Lactate 1.9, FiO2 21.0, Venous Blood Potassium 4.9 06/13/17 18:55: WBC 8.6 D, RBC 4.04, Hgb 9.5 L, Hct 30.2 L, MCV 74.8 L, MCH 23.5 L, MCHC 31.5, RDW 17.8 H, Plt Count 259, MPV 9.6, Gran % 88.5 H, Lymph % ( Auto) 8.7 L, [place] % (Auto) 2.5, Eos % (Auto) 0.2 L, Baso % (Auto) 0.1, Gran # 7.63 H, Lymph # 0.8 L, [place] # 0.2, Eos # 0.0, Baso # 0.01 - RAD Interpretation Radiology Orders: 06/13/17 19:24 CHEST PORTABLE [RAD] Stat - Medication Orders Current Medication Orders: Sodium Chloride (Sodium Chloride 0.9%) 250 mls @ 100 mls/hr IV .Q2H30M [facility] Last Admin: 06/13/17 19:37 Dose: 100 mls/hr Vancomycin HCl (Vancomycin 1gm) 1 gm in 250 mls @ 167 mls/hr IVPB STAT STA PRN Reason: Protocol Stop: 06/13/17 22:54 Discontinued Medications Ibuprofen (Motrin Tab) 600 mg PO STAT STA Stop: 06/13/17 20:37 Last Admin: 06/13/17 21:00 Dose: 600 mg Disposition/Present on Arrival - Present on Arrival Any Indicators Present on Arrival: No History of DVT/PE: No History of Uncontrolled Diabetes: No Urinary Catheter: No History of Decub. Ulcer: No History Surgical Site Infection Following: None - Disposition Have Diagnosis and Disposition been Completed?: Yes Diagnosis: Fever Disposition: HOSPITALIZED Disposition Time: 21:31 Patient Plan: Admission Patient Problems: Current Active Problems Problem Status Onset Fever Acute Condition: FAIR Referrals: Carisa Armstrong MD [Primary Care Provider] - Follow up with primary Forms: [employer] (Indonesian)
[2017-06-13] MEDS: Sodium Chloride 0.9% 250 ML IV SCH (19:37)
[2017-06-13 19:50] LABS: BASO # 0.01 K/mm3 (0.0-2.0); BASO % 0.1 % (0.0-3.0); EOS % 0.2 % (1.5-5.0); GRAN # 7.63 (1.4-6.5); GRAN % 88.5 % (50.0-68.0); HEMOGLOBIN 9.5 g/dL (12.0-16.0); LYMPH # 0.8 (1.2-3.4); LYMPH % 8.7 % (22.0-35.0); MEAN CELL VOLUME 74.8 fl (80.0-105.0); MEAN CORPUSCULAR HEMOGLOBIN 23.5 pg (25.0-35.0); MEAN CORPUSCULAR HGB CONC 31.5 g/dl (31.0-37.0); MEAN PLATELET VOLUME 9.6 fl (7.0-11.0); MONO # 0.2 (0.1-0.6); MONO % 2.5 % (1.0-6.0); PLATELET COUNT 259 10^3/uL (120.0-450.0); RBC 4.04 10^6/uL (3.5-6.1); RED CELL DISTRIBUTION WIDTH 17.8 % (11.5-14.5); WHITE BLOOD COUNT 8.6 10^3/ul (4.5-11.0)
[2017-06-13 19:54] LABS: VENOUS BLOOD GAS PO2 41 mm/Hg (30-55)
[2017-06-13 19:59] LABS: ALBUMIN 3.5 g/dL (3.0-4.8); ALT/SGPT 36 U/L (7-56); AST/SGOT 42 U/L (15-39); BLOOD UREA NITROGEN 16 mg/dL (7-21); CALCIUM 8.5 mg/dL (8.4-10.5); GFR AFRICAN-AMERICAN > 60; GFR NON-AFRICAN AMERICAN 58
[2017-06-13 21:04] LABS: URINE BILIRUBIN NEGATIVE (NEGATIVE); URINE BLOOD MODERATE (NEGATIVE); URINE GLUCOSE (UA) NEGATIVE (NEGATIVE); URINE LEUKOCYTE ESTERASE NEGATIVE Leu/uL (NEGATIVE); URINE NITRATE NEGATIVE (NEGATIVE); URINE PROTEIN NEGATIVE mg/dL (<30 mg/dL); URINE UROBILINOGEN 0.2 E.U./dL (<1 E.U./dL)
[2017-06-13 21:06] LABS: URINE APPEARANCE CLEAR (CLEAR); URINE COLOR YELLOW (YELLOW)
[2017-06-13 21:19] LABS: URINE RBC 0 - 2 /hpf (0-2)
[2017-06-13] MEDS ORDERED: Vancomycin 1gm in NS 250ml 1 GM/250 ML BAG IVPB STA (21:25)
[2017-06-13] MEDS ORDERED: Meropenem 1g/NS 100mL IVPB 100 ML IVPB SCH (22:45)
[2017-06-13] MEDS ORDERED: Primacor 1 mg/ml Inj (10 ml) IV SCH (23:45)
[2017-06-14 00:20] VITALS: BMI 37.1
[2017-06-14] MEDS: Aztreonam 2 Gm in NS 100mL 100 ML IVPB SCH ×4 (01:01→21:26)
--- NOTE | 2017-06-14 08:59 | RAD ---
HISTORY: fever COMPARISON: No prior. FINDINGS: LUNGS: No active pulmonary disease. PLEURA: No significant pleural effusion identified, no pneumothorax apparent. CARDIOVASCULAR: Normal. OSSEOUS STRUCTURES: No significant abnormalities. VISUALIZED UPPER ABDOMEN: Normal. OTHER FINDINGS: Single lead pacemaker. Right-sided central line in SVC IMPRESSION: No active disease.
--- NOTE | 2017-06-14 09:17 | CP.PCM.CON ---
<Sheyla Kennedy - Last Filed: 06/14/17 14:07> History of Present Illness - History of Present Illness History of Present Illness: PGY-[address] Childers ID consult: line related infection Ms Nair ([id number]) 52 y/o [place] F with CHF with end-stage cardiomyopathy s/p AICD placment on chronic milrinone drip via R sided picc line, presenting with fever. She reports fever that started 2 days ago. The PICC [place] was [place] 3 months [place] [facility] Pt had cardiac catheterization via R neck at [facility] last Monday. Then she started to feel fever and chills over the weekend, with associated nausea. Denies sick contact, recent travel. There is a dog at home but no scratches or bites. ROS - Denies dysuria, cough, abdominal pain, diarrhea. Upon ED arival T 101.6, BP 130/70 --> 99/62 WBC 8.6, Hb 9.5, MCV 75, plt nl. 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 Armstrong Outpt [facility] [employer] Dr. Sr Past Patient History - Infectious Disease Hx of Infectious Diseases: None - Tetanus Immunizations Tetanus Immunization: Unknown - Past Social History Smoking Status: Never Smoked - CARDIAC Hx Cardiac Disorders: Yes Hx Cardia Arrhythmia: Yes Hx Congestive Heart Failure: Yes Hx Hypertension: Yes Hx Internal Defibrillator: Yes - PULMONARY Hx Chronic Obstructive Pulmonary Disease (COPD): Yes Hx Pneumonia: Yes Hx Sleep Apnea: Yes - NEUROLOGICAL HX Cerebrovascular Accident: Yes - HEENT Hx HEENT Problems: Yes (Wears glasses.) - RENAL Hx Chronic Kidney Disease: No - ENDOCRINE/METABOLIC Hx Endocrine Disorders: No - HEMATOLOGICAL/ONCOLOGICAL Hx Blood Disorders: Yes Hx Blood Transfusions: Yes Hx Blood Transfusion Reaction: No - INTEGUMENTARY Hx Dermatological Problems: No - MUSCULOSKELETAL/RHEUMATOLOGICAL Hx Falls: No - GASTROINTESTINAL Hx Gastrointestinal Disorders: Yes Hx Gastroesophageal Reflux: Yes HX Swallowing Problems: Yes - GENITOURINARY/GYNECOLOGICAL Hx Genitourinary Disorders: No - PSYCHIATRIC Hx Psychophysiologic Disorder: No Hx Substance Use: No - SURGICAL HISTORY Hx Cholecystectomy: Yes - ANESTHESIA Hx Anesthesia Reactions: No Hx Malignant Hyperthermia: No Meds Allergies/Adverse Reactions: Allergies Allergy/AdvReac Type Severity Reaction Status Date / Time acetaminophen Allergy ANGIOEDEMA Verified 03/26/17 11:44 cefepime Allergy ANAPHYLAXIS Verified 03/26/17 11:44 - Medications Medications: Current Medications Carvedilol (Coreg) 25 mg PO BID [facility] Famotidine (Pepcid) 20 mg PO DAILY [facility] Furosemide (Lasix) 40 mg PO DAILY [facility] Sodium Chloride (Sodium Chloride 0.9%) 250 mls @ 100 mls/hr IV .Q2H30M [facility] Last Admin: 06/13/17 19:37 Dose: 100 mls/hr Vancomycin HCl (Vancomycin 1gm) 1 gm in 250 mls @ 167 mls/hr IVPB Q12H [facility] PRN Reason: Protocol Aztreonam (Azactam 2 Gm) 100 mls @ 100 mls/hr IVPB Q8 [facility] PRN Reason: Protocol Stop: 06/20/17 22:46 Last Admin: 06/14/17 07:04 Dose: 100 mls/hr Milrinone Lactate/Dextrose (Primacor 20mg/100ml D5w) 100 mls @ 6.178 mls/hr IV .[id number] PRN; Protocol; 0.2 MCG/KG/MIN PRN Reason: TITRATE PER MD ORDER Magnesium Oxide (Mag-Ox) 400 mg PO BID [facility] Prednisolone (Prednisolone Oral Soln) 10 mg PO DAILY [facility] Ramipril (Altace) 5 mg PO BID [facility] Spironolactone (Aldactone) 25 mg PO BID [facility] Physical Exam - Constitutional Appears: No Acute Distress - Head Exam Head Exam: ATRAUMATIC, NORMAL INSPECTION, NORMOCEPHALIC - Eye Exam Eye Exam: EOMI, Normal appearance, PERRL. absent: Scleral icterus - ENT Exam ENT Exam: Mucous Membranes Moist - Neck Exam Neck exam: Positive for: Normal Inspection Additional comments: no erythema or drainage from cath site - Respiratory Exam Respiratory Exam: Clear to Auscultation Bilateral. absent: Rales, Rhonchi, Wheezes - Cardiovascular Exam Cardiovascular Exam: REGULAR RHYTHM, +S1, +S2 - GI/Abdominal Exam GI & Abdominal Exam: Distended, Normal Bowel Sounds, Rigid, Soft. absent: Tenderness Additional comments: no suprapubic tenderness - Extremities Exam Extremities exam: Positive for: calf tenderness, normal capillary refill, pedal pulses present. Negative for: pedal edema Additional comments: No erythema and crepitis or tenderness around R PICC area - Back Exam Back exam: absent: CVA tenderness (L), CVA tenderness (R) - Neurological Exam Neurological exam: Alert, Oriented x3 - Psychiatric Exam Psychiatric exam: Normal Affect, Normal Mood - Skin Skin Exam: Dry, Normal Color Results - Vital Signs Recent Vital Signs: Last Vital Signs Temp 97.8 F 06/14/17 06:00 Pulse 68 06/14/17 06:00 Resp 20 06/14/17 06:00 BP 172/65 H 06/14/17 06:00 Pulse Ox 99 06/14/17 06:00 - Labs Result Diagrams: 06/13/17 18:55 06/13/17 18:55 Assessment & Plan - Assessment and Plan (Free Text) Plan: Ms Nair ([id number]) 52 y/o [place] F with CHF with end-stage cardiomyopathy s/p AICD placment on chronic milrinone drip via R sided picc line, presenting with fever. She reports fever that started 2 days ago after cardiac catheterization. The PICC line was placed 3 months ago [place] [facility]. 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 Childers - Date & Time Date: 06/14/17 Time: 13:59 <Krishan Childers S - Last Filed: 06/14/17 14:55> Meds - Medications Medications: Current Medications Carvedilol (Coreg) 25 mg PO BID [facility] Last Admin: 06/14/17 09:38 Dose: 25 mg Famotidine (Pepcid) 20 mg PO DAILY [facility] Last Admin: 06/14/17 09:38 Dose: 20 mg Furosemide (Lasix) 40 mg PO DAILY [facility] Last Admin: 06/14/17 09:38 Dose: 40 mg Sodium Chloride (Sodium Chloride 0.9%) 250 mls @ 100 mls/hr IV .Q2H30M [facility] Last Admin: 06/13/17 19:37 Dose: 100 mls/hr Vancomycin HCl (Vancomycin 1gm) 1 gm in 250 mls @ 167 mls/hr IVPB Q12H [facility] PRN Reason: Protocol Last Admin: 06/14/17 09:41 Dose: 167 mls/hr Aztreonam (Azactam 2 Gm) 100 mls @ 100 mls/hr IVPB Q8 [facility] PRN Reason: Protocol Stop: 06/20/17 22:46 Last Admin: 06/14/17 07:04 Dose: 100 mls/hr Milrinone Lactate/Dextrose (Primacor 20mg/100ml D5w) 100 mls @ 6.178 mls/hr IV .[id number] PRN; Protocol; 0.2 MCG/KG/MIN PRN Reason: TITRATE PER MD ORDER Magnesium Oxide (Mag-Ox) 400 mg PO BID [facility] Last Admin: 06/14/17 09:38 Dose: 400 mg Prednisolone (Prednisolone Oral Soln) 10 mg PO DAILY [facility] Ramipril (Altace) 5 mg PO BID [facility] Last Admin: 06/14/17 09:48 Dose: Not Given Spironolactone (Aldactone) 25 mg PO BID [facility] Last Admin: 06/14/17 09:37 Dose: 25 mg Results - Vital Signs Recent Vital Signs: Last Vital Signs Temp 98.1 F 06/14/17 12:00 Pulse 88 06/14/17 12:00 Resp 19 06/14/17 12:00 BP 122/74 06/14/17 12:00 Pulse Ox 99 06/14/17 06:00 - Labs Result Diagrams: 06/13/17 18:55 06/13/17 18:55 Labs: Laboratory Results - last 24 hr 06/14/17 13:45 Iron 16 L TIBC 339 % Saturation 5 L Assessment & Plan - Assessment and Plan (Free Text) Plan: Infectious Diseases Attending Physician Attestation Patient seen and examined, discussed with medical receptionist medical assistant. I have reviewed the pertinent clinical information. I agree with the above findings, assessment and plan. In addition, we have started the patient on Vancomycin and Azactam for possible bacteremia from PICC line. Follow up blood cx. Awaiting PICC line removal. Will monitor clinically.
[2017-06-14] MEDS: Magnesium Oxide 400 mg Tab UD PO SCH ×2 (09:38→17:50)
[2017-06-14] MEDS: Vancomycin 1gm in NS 250ml 1 GM/250 ML BAG IVPB SCH ×2 (09:41→14:42)
[2017-06-14 14:11] LABS: % IRON SATURATION 5 % (20-55); IRON 16 ug/dL (45-180); TOTAL IRON BINDING CAPACITY 339 ug/dL (265-497)
[2017-06-14] MEDS: PrednisoLONE 15 mg/5 ml Oral Syrup (240 ml) PO SCH (15:08)
[2017-06-14] MEDS: Sodium Chloride 0.9% 250 ML IV SCH (17:56)
[2017-06-14 21:29] LABS: FERRITIN 15.4 ng/mL
--- NOTE | 2017-06-14 21:41 | CP.PCM.HP ---
History of Present Illness - History of Present Illness History of Present Illness: 06/14/17 Patient is a 52 y/o F with CHF, on milirone drip via R sided picc line, presenting with fever. She reports fever that started 2 days ago. Denies dysuria, cough, abdominal pain, diarrhe. was sitting on the bed side some time feeling sob Present on Admission - Present on Admission Any Indicators Present on Admission: No Review of Systems - Constitutional Constitutional: Chills, Fever, Lethargy - EENT Eyes: As Per HPI Ears: As Per HPI Nose/Mouth/Throat: As Per HPI - Breasts Breasts: As Per HPI - Cardiovascular Cardiovascular: As Per HPI - Respiratory Respiratory: Wheezing, Snoring - Gastrointestinal Gastrointestinal: As Per HPI - Genitourinary Genitourinary: As Per HPI - Integumentary Integumentary: As Per HPI - Neurological Neurological: As Per HPI - Psychiatric Psychiatric: As Per HPI - Endocrine Endocrine: As Per HPI - Hematologic/Lymphatic Hematologic: As Per HPI Past Patient History - Infectious Disease Hx of Infectious Diseases: None - Tetanus Immunizations Tetanus Immunization: Unknown - Past Social History Smoking Status: Never Smoked - CARDIAC Hx Cardiac Disorders: Yes Hx Cardia Arrhythmia: Yes Hx Congestive Heart Failure: Yes Hx Hypertension: Yes Hx Internal Defibrillator: Yes - PULMONARY Hx Chronic Obstructive Pulmonary Disease (COPD): Yes Hx Pneumonia: Yes Hx Sleep Apnea: Yes - NEUROLOGICAL HX Cerebrovascular Accident: Yes - HEENT Hx HEENT Problems: Yes (Wears glasses.) - RENAL Hx Chronic Kidney Disease: No - ENDOCRINE/METABOLIC Hx Endocrine Disorders: No - HEMATOLOGICAL/ONCOLOGICAL Hx Blood Disorders: Yes Hx Blood Transfusions: Yes Hx Blood Transfusion Reaction: No - INTEGUMENTARY Hx Dermatological Problems: No - MUSCULOSKELETAL/RHEUMATOLOGICAL Hx Falls: No - GASTROINTESTINAL Hx Gastrointestinal Disorders: Yes Hx Gastroesophageal Reflux: Yes HX Swallowing Problems: Yes - GENITOURINARY/GYNECOLOGICAL Hx Genitourinary Disorders: No - PSYCHIATRIC Hx Psychophysiologic Disorder: No Hx Substance Use: No - SURGICAL HISTORY Hx Cholecystectomy: Yes - ANESTHESIA Hx Anesthesia Reactions: No Hx Malignant Hyperthermia: No Meds Allergies/Adverse Reactions: Allergies Allergy/AdvReac Type Severity Reaction Status Date / Time acetaminophen Allergy ANGIOEDEMA Verified 03/26/17 11:44 cefepime Allergy ANAPHYLAXIS Verified 03/26/17 11:44 Physical Exam - Constitutional Appears: Well - Head Exam Head Exam: ATRAUMATIC, NORMAL INSPECTION, NORMOCEPHALIC - Eye Exam Eye Exam: EOMI, Normal appearance, PERRL Pupil Exam: NORMAL ACCOMODATION, PERRL - ENT Exam ENT Exam: Mucous Membranes Moist, Normal Exam - Neck Exam Neck exam: Positive for: Normal Inspection - Respiratory Exam Respiratory Exam: Decreased Breath Sounds, NORMAL BREATHING PATTERN - Cardiovascular Exam Cardiovascular Exam: REGULAR RHYTHM - GI/Abdominal Exam GI & Abdominal Exam: Normal Bowel Sounds, Soft. absent: Tenderness - Rectal Exam Rectal Exam: NORMAL INSPECTION - Exam Exam: Circumcision, NORMAL INSPECTION External exam: NORMAL EXTERNAL EXAM Speculum exam: NORMAL SPECULUM EXAM Bimanual exam: NORMAL BIMANUAL EXAM - Extremities Exam Extremities exam: Positive for: normal inspection - Back Exam Back exam: NORMAL INSPECTION - Neurological Exam Neurological exam: Alert, CN II-XII Intact, Normal Gait, Oriented x3, Reflexes Normal - Psychiatric Exam Psychiatric exam: Normal Affect, Normal Mood - Skin Skin Exam: Dry, Intact, Normal Color, Warm Results - Vital Signs Recent Vital Signs: Last Vital Signs Temp 98 F 06/14/17 17:58 Pulse 86 06/14/17 18:00 Resp 18 06/14/17 17:58 BP 104/59 L 06/14/17 17:58 Pulse Ox 99 06/14/17 06:00 - Labs Result Diagrams: 06/13/17 18:55 06/13/17 18:55 Labs: Laboratory Results - last 24 hr 06/14/17 13:45 Iron 16 L TIBC 339 % Saturation 5 L Assessment & Plan - Assessment and Plan (Free Text) Assessment: Ms Nair (269-2) 52 y/o Citizen Of [place] F with CHF with end-stage cardiomyopathy s/p AICD placment on chronic milrinone drip via R sided picc line, presenting with fever. She reports fever that started 2 days ago. The PICC line was placed 3 months ago at [facility]. Pt had cardiac catheterization via R neck at [facility] last Monday. Then she started to feel fever and chills over the weekend, with associated nausea. Denies sick contact, recent travel. There is a dog at home but no scratches or bites.pt had h/o copd , htn . anemia Plan: Ms Nair (269-2) 52 y/o Citizen Of [place] F with CHF with end-stage cardiomyopathy s/p AICD placment on chronic milrinone drip via R sided picc line, presenting with fever. She reports fever that started 2 days ago after cardiac catheterization. The PICC line was placed 3 months ago at [facility]. 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
[2017-06-14 22:01] LABS: FOLATE 10.8 ng/mL
[2017-06-14] MEDS: Milrinone 20mg/100ml D5W 100 ML IV PRN (22:49)
--- NOTE | 2017-06-15 01:09 | CARD ---
APPROVED REPORT EKG Measurement Heart [id number] [id number] [id number] <Conclusion> Sinus tachycardia Left ventricular hypertrophy with repolarization abnormality Abnormal ECG
[2017-06-15] MEDS: Aztreonam 2 Gm in NS 100mL 100 ML IVPB SCH ×3 (05:15→22:30)
--- NOTE | 2017-06-15 05:15 | CON ---
DATE: 06/14/2017 REASON FOR CONSULTATION: Cardiomyopathy, may have sleep apnea syndrome, probably line sepsis. HISTORY OF PRESENT ILLNESS: This is a 52-year-old female with a known history of cardiomyopathy, Primacor dependent; congestive heart failure; has AICD; PICC line for Primacor; history of get infected, this PICC line is about 3 months old from [facility], admitted with fever, chills, had a septic workup done, antibiotic started in the past and present continued, she refused to have a sleep study done and use CPAP. No hemoptysis or emesis. No hematuria. No diarrhea reported. PAST MEDICAL HISTORY: Cardiomyopathy, recurrent PICC line infection, has AICD, history of endocarditis, history of CVA, diabetes, recurrent bacteremia. ALLERGIES: ACETAMINOPHEN AND CEFEPIME. FAMILY HISTORY: No significant cardiopulmonary disease reported. MEDICATIONS: She is on Aldactone 25 mg twice a day, Altace 5 mg twice a day, Azactam 2 g IV q 8 hours, Coreg 25 mg twice a day, Lasix 40 mg daily, magnesium oxide 400 mg twice a day, Pepcid 20 mg daily, prednisone 10 mg daily, *------*, Primacor, IV fluid, vancomycin 1 gram IV q. 12 hours. REVIEW OF SYSTEMS: No headache. No rhinitis. No cough. Short of breath with exertion. No chest pain. No nausea. No vomiting. No diarrhea. No dysuria. No leg pain. No leg swelling. Admitted to have snoring and daytime sleepy. Fever and chills. PHYSICAL EXAMINATION: GENERAL: Lying in the bed, sleepy. VITAL SIGNS: Temp is 98, T-max 101.6, heart rate is 88, respiratory rate is 20. blood pressure 122/74, pulse ox 99% on room air. HEENT: Moist mucous membrane. Crowded airway. Mallampati score is IV. NECK: Short thick neck. LUNGS: Fair airflow with few rhonchi, has PICC in the right upper extremity. HEART: S1 and S1. ABDOMEN: Soft and nontender. No organomegaly. EXTREMITIES: No edema. NEUROLOGIC: Awake and alert. Follow simple commands. LABORATORY DATA: Shows hemoglobin 9.5, hematocrit 30.2, WBC 8.6 and platelet is 259. VBG showed pH 7.40, pCO2 is 42, O2 of 41. Sodium 137, potassium 4.6, chloride 105, bicarbonate 22, BUN 16, creatinine 1.0, glucose 115, calcium is 8.5, total bilirubin 0.7, AST is 42, ALT is 36, alkaline phosphatase is 74, albumin is 3.5. Urinalysis shows moderate blood, WBC 2 to 5, RBC 0 to 2. Chest x-ray done in ER, shows no active pulmonary disease. IMPRESSION AND PLAN: Probably line sepsis, cardiomyopathy, automatic implantable cardioverter-defibrillator, Primacor dependent, obesity, may have sleep apnea syndrome. She has been followed at [facility] and transplant team. She will need to discontinue PICC line. We will let infectious disease to make that discission. Keep head elevated at 45 degrees, sleep apnea precaution. May start this Primacor, on the peripheral line for now until the new PICC line available. Again spoke to the patient above sleep apnea and its consequences, effect of cardiomyopathy refusing to use CPAP for now. Thank you, and we will follow with you. Cruz Teran MD
[2017-06-15] MEDS: Milrinone 20mg/100ml D5W 100 ML IV PRN (06:48)
--- NOTE | 2017-06-15 06:49 | CP.PCM.PN ---
Subjective - Date & Time of Evaluation Date of Evaluation: 06/15/17 Time of Evaluation: 06:47 - Subjective Subjective: PGY-[address] Childers Rapid response: pt noted shaking. 97.9 rectal temp AAOx3 HR 110 on monitor Pending labs Objective - Vital Signs/Intake and Output Vital Signs (last 24 hours): Temp Pulse Resp BP Pulse Ox 97.0 F L 66 20 111/66 95 06/15/17 06:00 06/15/17 06:00 06/15/17 00:01 06/15/17 06:00 06/15/17 06:00 Intake and Output: 06/14/17 06/15/17 18:59 06:59 Intake Total 360 Output Total 400 Balance -40 - Medications Medications: Current Medications Carvedilol (Coreg) 25 mg PO BID [facility] Last Admin: 06/14/17 17:50 Dose: 25 mg Famotidine (Pepcid) 20 mg PO DAILY [facility] Last Admin: 06/14/17 09:38 Dose: 20 mg Furosemide (Lasix) 40 mg PO DAILY [facility] Last Admin: 06/14/17 09:38 Dose: 40 mg Vancomycin HCl (Vancomycin 1gm) 1 gm in 250 mls @ 167 mls/hr IVPB Q12H NESTOR PRN Reason: Protocol Last Admin: 06/14/17 09:41 Dose: 167 mls/hr Aztreonam (Azactam 2 Gm) 100 mls @ 100 mls/hr IVPB Q8 NESTOR PRN Reason: Protocol Stop: 06/20/17 22:46 Last Admin: 06/15/17 05:15 Dose: 100 mls/hr Milrinone Lactate/Dextrose (Primacor 20mg/100ml D5w) 100 mls @ 6.178 mls/hr IV .[id number] PRN; Protocol; 0.2 MCG/KG/MIN PRN Reason: TITRATE PER MD ORDER Last Admin: 06/14/17 22:49 Dose: 0.2 mcg/kg/min, 6.178 mls/hr Magnesium Oxide (Mag-Ox) 400 mg PO BID [facility] Last Admin: 06/14/17 17:50 Dose: 400 mg Prednisolone (Prednisolone Oral Soln) 10 mg PO DAILY [facility] Last Admin: 06/14/17 15:08 Dose: 5 ml Ramipril (Altace) 5 mg PO BID [facility] Last Admin: 06/14/17 09:48 Dose: Not Given Spironolactone (Aldactone) 25 mg PO BID [facility] Last Admin: 06/14/17 17:50 Dose: 25 mg - Constitutional Appears: Other (shaking) - Head Exam Head Exam: ATRAUMATIC, NORMAL INSPECTION, NORMOCEPHALIC - Eye Exam Eye Exam: EOMI, Normal appearance, PERRL. absent: Scleral icterus Pupil Exam: NORMAL ACCOMODATION - ENT Exam ENT Exam: Mucous Membranes Moist - Neck Exam Additional comments: supple - Respiratory Exam Respiratory Exam: Clear to Ausculation Bilateral. absent: Rales, Rhonchi, Wheezes - Cardiovascular Exam Cardiovascular Exam: Tachycardia - GI/Abdominal Exam GI & Abdominal Exam: Soft. absent: Guarding, Rigid, Tenderness - Extremities Exam Extremities Exam: absent: Calf Tenderness - Neurological Exam Neurological Exam: Alert, Awake - Psychiatric Exam Psychiatric exam: Normal Affect, Normal Mood - Skin Skin Exam: Dry, Warm Assessment and Plan - Assessment and Plan (Free Text) Plan: Ms Nair (269-2) 52 y/o [place] F with CHF with end-stage cardiomyopathy s/p AICD placment on chronic milrinone drip via R sided picc line, presenting with fever. She reports fever that started 2 days ago after cardiac catheterization. The PICC line was placed 3 months ago at [facility] [place] [facility]. 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 Childers
[2017-06-15 07:44] LABS: HEMOGLOBIN 9.9 g/dL (12.0-16.0); MEAN CELL VOLUME 74.2 fl (80.0-105.0); MEAN CORPUSCULAR HEMOGLOBIN 23.4 pg (25.0-35.0); MEAN CORPUSCULAR HGB CONC 31.5 g/dl (31.0-37.0); MEAN PLATELET VOLUME 9.3 fl (7.0-11.0); PLATELET COUNT 248 10^3/uL (120.0-450.0); RBC 4.23 10^6/uL (3.5-6.1); RED CELL DISTRIBUTION WIDTH 17.9 % (11.5-14.5)
[2017-06-15 07:55] LABS: ALB/GLOB RATIO 0.8 (1.1-1.8); ALT/SGPT 65 U/L (7-56); AST/SGOT 59 U/L (15-39); BLOOD UREA NITROGEN 10 mg/dL (7-21); CALCIUM 8.5 mg/dL (8.4-10.5); GFR AFRICAN-AMERICAN > 60; GFR NON-AFRICAN AMERICAN > 60
[2017-06-15 08:02] LABS: WHITE BLOOD COUNT 2.4 10^3/ul (4.5-11.0)
[2017-06-15] MEDS: Magnesium Oxide 400 mg Tab UD PO SCH ×2 (09:54→18:23)
[2017-06-15 09:55] LABS: BASOPHIL 1 % (0.0-1.0); EOSINOPHIL 1 % (0.0-3.0); LYMPHOCYTE 29 % (22.0-35.0); MONOCYTE 6 % (1.0-6.0); NEUTROPHIL 63 % (50.0-70.0)
[2017-06-15] MEDS ORDERED: Meropenem 1g/NS 100mL IVPB 1 GM/100 ML PIGGYBACK IVPB SCH (10:00)
[2017-06-15] MEDS: PrednisoLONE 15 mg/5 ml Oral Syrup (240 ml) PO SCH (10:01)
[2017-06-15 10:07] LABS: POIKILOCYTOSIS SLIGHT
[2017-06-15 10:08] LABS: HYPOCHROMIA SLIGHT; MICROCYTOSIS SLIGHT; PLATELET ESTIMATE NORMAL (NORMAL)
--- NOTE | 2017-06-15 10:21 | RAD ---
PROCEDURE: CHEST RADIOGRAPH, 1 VIEW HISTORY: short of breath COMPARISON: 06/13/2017 FINDINGS: LUNGS: Clear. PLEURA: No pneumothorax or pleural fluid seen. CARDIOVASCULAR: Mild cardiomegaly OSSEOUS STRUCTURES: No significant abnormalities. VISUALIZED UPPER ABDOMEN: Normal. OTHER FINDINGS: Single lead pacemaker. IMPRESSION: No active disease.
--- NOTE | 2017-06-15 10:40 | CP.PCM.CON ---
History of Present Illness - History of Present Illness History of Present Illness: 52 y/o woman with long standing HTN, Hx of NICM (last ech 01/2017 with EF 20-25% ) on milrinone infusion pump via R. arm PICC. She is followed by CHF clinic at [facility]. Presents with weakness, fatigue and subjective fevers. Overall NYHA 2-3 with day to day activities. Denies CP, is not ill appearing, mild SOB no volume overload. No N/V/D. PMHX: HTN, NICM- severe systolic LV dysfunction, hx of IE in past, AICD- single lead PSHX: Allergies: per chart Social: No toxic habits family hx: CHF, no premature CAD or SCD Review of Systems - Review of Systems All systems: reviewed and no additional remarkable complaints except Past Patient History - Infectious Disease Hx of Infectious Diseases: None - Tetanus Immunizations Tetanus Immunization: Unknown - Past Social History Smoking Status: Never Smoked - CARDIAC Hx Cardiac Disorders: Yes Hx Cardia Arrhythmia: Yes Hx Congestive Heart Failure: Yes Hx Hypertension: Yes Hx Internal Defibrillator: Yes - PULMONARY Hx Chronic Obstructive Pulmonary Disease (COPD): Yes Hx Pneumonia: Yes Hx Sleep Apnea: Yes - NEUROLOGICAL HX Cerebrovascular Accident: Yes - HEENT Hx HEENT Problems: Yes (Wears glasses.) - RENAL Hx Chronic Kidney Disease: No - ENDOCRINE/METABOLIC Hx Endocrine Disorders: No - HEMATOLOGICAL/ONCOLOGICAL Hx Blood Disorders: Yes Hx Blood Transfusions: Yes Hx Blood Transfusion Reaction: No - INTEGUMENTARY Hx Dermatological Problems: No - MUSCULOSKELETAL/RHEUMATOLOGICAL Hx Falls: No - GASTROINTESTINAL Hx Gastrointestinal Disorders: Yes Hx Gastroesophageal Reflux: Yes HX Swallowing Problems: Yes - GENITOURINARY/GYNECOLOGICAL Hx Genitourinary Disorders: No - PSYCHIATRIC Hx Psychophysiologic Disorder: No Hx Substance Use: No - SURGICAL HISTORY Hx Cholecystectomy: Yes - ANESTHESIA Hx Anesthesia Reactions: No Hx Malignant Hyperthermia: No Meds Allergies/Adverse Reactions: Allergies Allergy/AdvReac Type Severity Reaction Status Date / Time acetaminophen Allergy ANGIOEDEMA Verified 03/26/17 11:44 cefepime Allergy ANAPHYLAXIS Verified 03/26/17 11:44 - Medications Medications: Current Medications Carvedilol (Coreg) 25 mg PO BID [facility] Last Admin: 06/15/17 09:54 Dose: 25 mg Famotidine (Pepcid) 20 mg PO DAILY [facility] Last Admin: 06/15/17 09:54 Dose: 20 mg Furosemide (Lasix) 40 mg PO DAILY [facility] Last Admin: 06/15/17 09:54 Dose: 40 mg Vancomycin HCl (Vancomycin 1gm) 1 gm in 250 mls @ 167 mls/hr IVPB Q12H NESTOR PRN Reason: Protocol Last Admin: 06/14/17 09:41 Dose: 167 mls/hr Milrinone Lactate/Dextrose (Primacor 20mg/100ml D5w) 100 mls @ 6.178 mls/hr IV .[id number] PRN; Protocol; 0.2 MCG/KG/MIN PRN Reason: TITRATE PER MD ORDER Last Admin: 06/15/17 06:48 Dose: 0.2 mcg/kg/min, 6.178 mls/hr Meropenem 1g/NS 100mL IVPB (Meropenem 1g/Ns 100ml Ivpb) 1 gm in 100 mls @ 100 mls/hr IVPB Q12 NESTOR PRN Reason: Protocol Stop: 06/15/17 10:59 Last Admin: 06/15/17 10:08 Dose: 100 mls/hr Magnesium Oxide (Mag-Ox) 400 mg PO BID [facility] Last Admin: 06/15/17 09:54 Dose: 400 mg Prednisolone (Prednisolone Oral Soln) 10 mg PO DAILY [facility] Last Admin: 06/15/17 10:01 Dose: 15 ml Ramipril (Altace) 5 mg PO BID [facility] Last Admin: 06/14/17 09:48 Dose: Not Given Spironolactone (Aldactone) 25 mg PO BID [facility] Last Admin: 06/15/17 09:54 Dose: 25 mg Physical Exam - Constitutional Appears: No Acute Distress, Chronically Ill - Head Exam Head Exam: ATRAUMATIC, NORMAL INSPECTION, NORMOCEPHALIC - Eye Exam Eye Exam: EOMI, Normal appearance, PERRL - ENT Exam ENT Exam: Mucous Membranes Moist, Normal Oropharynx - Neck Exam Neck exam: Positive for: Full Rom. Negative for: Thyromegaly - Respiratory Exam Respiratory Exam: Clear to Auscultation Bilateral, NORMAL BREATHING PATTERN. absent: Rhonchi, Wheezes - Cardiovascular Exam Cardiovascular Exam: REGULAR RHYTHM, +S1, +S2. absent: Gallop, +S4, Systolic Murmur - GI/Abdominal Exam GI & Abdominal Exam: Normal Bowel Sounds, Soft. absent: Tenderness - Extremities Exam Extremities exam: Positive for: normal inspection, pedal pulses present. Negative for: calf tenderness, pedal edema - Neurological Exam Neurological exam: Alert, Oriented x3 - Psychiatric Exam Psychiatric exam: Normal Affect, Normal Mood - Skin Skin Exam: Normal Color, Warm Results - Vital Signs Recent Vital Signs: Last Vital Signs Temp 97.0 F L 06/15/17 06:00 Pulse 104 H 06/15/17 09:54 Resp 20 06/15/17 00:01 BP 161/104 H 06/15/17 09:54 Pulse Ox 95 06/15/17 06:00 - Labs Result Diagrams: 06/15/17 07:30 06/15/17 07:30 Labs: Laboratory Results - last 24 hr 06/14/17 06/14/17 06/15/17 13:45 13:45 07:30 WBC 2.4 L* D RBC 4.23 Hgb 9.9 L Hct 31.4 L MCV 74.2 L MCH 23.4 L MCHC 31.5 RDW 17.9 H Plt Count 248 MPV 9.3 Neutrophils % (Manual) 63 Lymphocytes % (Manual) 29 Monocytes % (Manual) 6 Eosinophils % (Manual) 1 Basophils % (Manual) 1 Platelet Evaluation Normal Hypochromasia Slight Poikilocytosis (manual Slight Microcytosis (manual) Slight Sodium Potassium Chloride Carbon Dioxide Anion Gap BUN Creatinine Est GFR ( Amer) Est GFR (Non-Af Amer) Random Glucose Calcium Phosphorus Magnesium Iron 16 L TIBC 339 % Saturation 5 L Ferritin 15.4 Total Bilirubin AST ALT Alkaline Phosphatase Total Protein Albumin Globulin Albumin/Globulin Ratio Vitamin B12 522 Folate 10.8 06/15/17 07:30 WBC RBC Hgb Hct MCV MCH MCHC RDW Plt Count MPV Neutrophils % (Manual) Lymphocytes % (Manual) Monocytes % (Manual) Eosinophils % (Manual) Basophils % (Manual) Platelet Evaluation Hypochromasia Poikilocytosis (manual Microcytosis (manual) Sodium 139 Potassium 4.1 Chloride 109 H Carbon Dioxide 20 L Anion Gap 14 BUN 10 Creatinine 0.8 Est GFR ( Amer) > 60 Est GFR (Non-Af Amer) > 60 Random Glucose 99 Calcium 8.5 Phosphorus 3.7 Magnesium 2.0 Iron TIBC % Saturation Ferritin Total Bilirubin 0.6 AST 59 H ALT 65 H Alkaline Phosphatase 124 Total Protein 6.7 Albumin 3.0 Globulin 3.6 Albumin/Globulin Ratio 0.8 L Vitamin B12 Folate - EKG Data EKG Interpreted by: Myself (NSR, LVH with strain pattern, no IVCD or QRS widening, normal Qtc) - Imaging and Cardiology Chest x-ray Status: Image reviewed by me (CM, no infiltrate, mild congestion) Assessment & Plan - Assessment and Plan (Free Text) Assessment: 1. Severe NICM with EF documented to be 20-25% by echo in January 2. Subjective fever, no clinical signs of sepsis, no leukocytosis 3. EKG: chronic LVH with strain pattern (unchanged from prior) Carvedilol (Coreg) 25 mg PO BID [facility] Furosemide (Lasix) 40 mg PO DAILY [facility] Milrinone Lactate/Dextrose (Primacor 20mg/100ml D5w) 100 mls @ 6.178 mls/hr IV .[id number] PRN; Protocol; 0.2 MCG/KG/MIN PRN Reason: TITRATE PER MD ORDER Last Admin: 06/15/17 06:48 Dose: 0.2 mcg/kg/min, 6.178 mls/hr Magnesium Oxide (Mag-Ox) 400 mg PO BID [facility] Ramipril (Altace) 5 mg PO BID [facility] Spironolactone (Aldactone) 25 mg PO BID [facility] > She is on optimal medical therapy for her CHF: and above meds should be continued as clinically she appears to be compensated. > Keep Mg >2 > Cret and K+ are WNL > Regards subjective fever: She reports fever that started 2 days ago after cardiac catheterization. The PICC line was placed 3 months ago at [facility] [place]. 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 Consider WBC scan to identify any seeding of lines and cardiac device Cont ABX per ID Agree with PICC line removal
--- NOTE | 2017-06-15 11:22 | PCM.RRTMUL ---
APPLICATOR SPRAYER Nurse Assessment - Situation APPLICATOR SPRAYER Responder Arrival Time:: 09:19 APPLICATOR SPRAYER Reason for Call: Tachycardia, Respiratory Distress - Ventilator Settings FIO2 (% Oxygen):: 95 - Vital Signs Blood Pressure:: 148/74
--- NOTE | 2017-06-15 11:27 | CP.PCM.PCO ---
Addendum entered and electronically signed by Myriam Sexton DO 06/15/17 14:01: 100% NRB was given not 15 L Venti mask Patient has a ventricular defibrillator felt on left upper anterior chest wall ventricular defibrillator seen on CXR Original Note: <Myriam Sexton - Last Filed: 06/15/17 13:31> Physician Communication Note - Physician Communication Note Physician Communication Note: See attached section for CONTRACT ACCOUNTANT note Summary - Summary of Event Summary of Event: Patient noted suddenly to be in Respiratory distress by nursing. RT called at 9:18 CONTRACT ACCOUNTANT team responded immediately. patient was found to be anxious, shivering, tachypnic, but hemodynamically stable, AAOx3 Physical: Vitals: 161/104, HR 114 sinus tachycardia, tachypnic, O2 96% on 15L Venti mask General: AAOx3, following command. answering questions. HEENT: no JVD, EOMI, no facial droop. no tracheal deviation. Heart: no prem murmurs, tachycardia. normal rhythm. Lungs/resp: CTA BL, decreased breath sounds in all feels s/s to shallow breathing or body habitus, no wheezes, rales, no prem cyanosis Abdomen: round, soft, non-rigid, no pulsatile masses. Legs: no leg edema, full ROM Neuro: moving all extremities spontaneously, able to follow commands appropriately Psych: acutely anxious, aggravated. fluctuating affect. Repeatedly stated that we are not helping her/leaving her to . Right PICC. no hematoma, induration. Patient placed on venti mask 15L to allow for adequate oxygenation. pulse ox showing 96%-100% saturation on multiple checks during CONTRACT ACCOUNTANT. EKG at bedside notable for sinus tachycardia portable CXR at bedside showed no acute process, when compared to most recent CXR 06/13/17. Patient given 0.25 Xanax PO Once STAT for acute anxiety/agitation. will discuss with PMD and recommend patient to be seen by Psych. PT S&E with Attending Dr. Skyla Sexton DO PGY1 <Valerie Crum - Last Filed: 06/15/17 15:45> Attending/Attestation - Attestation I have personally seen and examined this patient.: Yes I have fully participated in the care of the patient.: Yes I have reviewed all pertinent clinical information: Yes Notes (Text): 06/15/17 15:43 IMP: Anxiety PLAN: as already noted,Pt was given Xanax 0.25 mg po.
[2017-06-15] MEDS: Vancomycin 1gm in NS 250ml 1 GM/250 ML BAG IVPB SCH ×4 (13:05→23:56)
[2017-06-15] MEDS: Sodium Chloride 0.9% 250 ML IV SCH ×3 (23:01→23:03)
--- NOTE | 2017-06-16 00:49 | CARD ---
APPROVED REPORT EKG Measurement Heart [id number] <Conclusion> Sinus tachycardia Left ventricular hypertrophy with repolarization abnormality Abnormal ECG
--- NOTE | 2017-06-16 02:33 | PN ---
PULMONARY PROGRESS NOTE REFERRING PHYSICIAN: Carisa Armstrong MD DATE: 06/15/2017 SUBJECTIVE: She is lying in the bed, head of bed at 45 degree, has a midline seen on the left upper extremity, still has a right upper extremity PICC line, fever is a little better. No nausea, no vomiting, no diarrhea. No leg pain or leg swelling. OBJECTIVE: GENERAL: In no acute distress. VITAL SIGNS: T-max 102.2, temperature is 97, heart rate is 98, respiratory rate is 18, blood pressure 135/88, pulse oxygen 95% on nasal cannula. HEENT: Moist mucous membranes. Crowded airway. Mallampati score is IV. NECK: Supple. No JVD. LUNGS: Fair airflow with few rhonchi. HEART: S1 and S2. ABDOMEN: Soft, nontender. No organomegaly. EXTREMITIES: No edema. NEUROLOGIC: Awake, alert, follows simple commands. MEDICATIONS: She is on Aldactone 25 mg twice a day, Altace 5 mg twice a day, Azactam 2 g IV q 8 hours, Coreg 25 mg twice a day, Lasix 40 mg daily, magnesium oxide 400 mg twice a day, Motrin 600 mg q 8 hours p.r.n., Pepcid 20 mg twice a day, prednisone 10 mg daily, Primacor, IV drip and vancomycin 1 mg IV q 12 hours. LABORATORY DATA: Shows blood culture has gram negative rods. Shows hemoglobin 9.9, hematocrit 31.4, WBC 2.4, platelet count is 248. Sodium 139, potassium 4.1, chloride 109, bicarbonate 20, BUN 10, creatinine 0.8. Calcium 8.5, magnesium 2.0, AST 59, ALT 65, alkaline phosphatase is 124, B12 is 522, foliate is 10.8. IMPRESSION AND PLAN: Line sepsis with gram negative bacteremia, cardiomyopathy, Primacor dependent, obesity, may have sleep apnea syndrome, has an automated implantable cardioverter-defibrillator. From a pulmonary point of view, she is going to keep head elevated at 45 degrees. I spoke to at bedside, all the questions answered and I spoke to nursing staff to get her old PICC line out as soon as. Also has a history of infectious disease, been on steroids. Sleep apnea precaution. Continue antibiotics. We will start oxygen as available, may discontinue vancomycin. Thank you and we will follow with you. Cruz Teran MD
[2017-06-16] MEDS: Aztreonam 2 Gm in NS 100mL 100 ML IVPB SCH ×3 (05:03→21:58)
--- NOTE | 2017-06-16 06:39 | CP.PCM.PN ---
<Sheyla Kennedy - Last Filed: 06/16/17 08:42> Subjective - Date & Time of Evaluation Date of Evaluation: 06/16/17 Time of Evaluation: 06:36 - Subjective Subjective: PGY-[address] Childers 102.7 last night PICC removed by ___?___ at PM with no culture sent PICC team states that PICC was not removed when new mid-line was put in Objective - Vital Signs/Intake and Output Vital Signs (last 24 hours): Temp Pulse Resp BP Pulse Ox 98.6 F 84 20 110/58 L 100 06/16/17 06:00 06/16/17 06:00 06/16/17 06:00 06/16/17 06:00 06/16/17 06:00 Intake and Output: 06/15/17 06/16/17 18:59 06:59 Intake Total 360 Output Total 600 Balance -240 - Medications Medications: Current Medications Carvedilol (Coreg) 25 mg PO BID [facility] Last Admin: 06/15/17 18:23 Dose: 25 mg Famotidine (Pepcid) 20 mg PO BID [facility] Last Admin: 06/15/17 18:24 Dose: 20 mg Furosemide (Lasix) 40 mg PO DAILY [facility] Last Admin: 06/15/17 09:54 Dose: 40 mg Vancomycin HCl (Vancomycin 1gm) 1 gm in 250 mls @ 167 mls/hr IVPB Q12H [facility] PRN Reason: Protocol Last Admin: 06/15/17 23:56 Dose: 167 mls/hr Milrinone Lactate/Dextrose (Primacor 20mg/100ml D5w) 100 mls @ 6.178 mls/hr IV .[id number] PRN; Protocol; 0.2 MCG/KG/MIN PRN Reason: TITRATE PER MD ORDER Last Admin: 06/15/17 06:48 Dose: 0.2 mcg/kg/min, 6.178 mls/hr Aztreonam (Azactam 2 Gm) 100 mls @ 100 mls/hr IVPB Q8 [facility]STOR PRN Reason: Protocol Stop: 06/23/17 14:31 Last Admin: 06/16/17 05:03 Dose: 100 mls/hr Ibuprofen (Motrin Tab) 600 mg PO Q8H PRN PRN Reason: Fever >100.4 F Last Admin: 06/15/17 20:59 Dose: 600 mg Magnesium Oxide (Mag-Ox) 400 mg PO BID [facility] Last Admin: 06/15/17 18:23 Dose: 400 mg Prednisolone (Prednisolone Oral Soln) 10 mg PO DAILY [facility] Last Admin: 06/15/17 10:01 Dose: 15 ml Ramipril (Altace) 5 mg PO BID [facility] Last Admin: 06/15/17 18:23 Dose: Not Given Spironolactone (Aldactone) 25 mg PO BID [facility] Last Admin: 06/15/17 18:23 Dose: 25 mg - Labs Labs: 06/15/17 07:30 06/15/17 07:30 - Constitutional Appears: No Acute Distress - Head Exam Head Exam: ATRAUMATIC, NORMAL INSPECTION, NORMOCEPHALIC - Eye Exam Eye Exam: EOMI, Normal appearance, PERRL. absent: Scleral icterus Pupil Exam: NORMAL ACCOMODATION - ENT Exam ENT Exam: Mucous Membranes Moist - Neck Exam Additional comments: supple - Respiratory Exam Respiratory Exam: Clear to Ausculation Bilateral, NORMAL BREATHING PATTERN. absent: Rales, Rhonchi, Wheezes, Respiratory Distress - Cardiovascular Exam Cardiovascular Exam: REGULAR RHYTHM, +S1, +S2 - GI/Abdominal Exam GI & Abdominal Exam: Soft, Normal Bowel Sounds. absent: Guarding, Rigid Additional comments: no suprapubic tenderness - Extremities Exam Extremities Exam: Normal Capillary Refill. absent: Calf Tenderness, Pedal Edema - Back Exam Back Exam: absent: CVA tenderness (L), CVA tenderness (R) - Neurological Exam Neurological Exam: Alert, Awake - Psychiatric Exam Psychiatric exam: Normal Affect, Normal Mood - Skin Skin Exam: Dry, Warm Assessment and Plan - Assessment and Plan (Free Text) Plan: Ms Nair ([id number]) 52 y/o [place]ien F with CHF with end-stage cardiomyopathy s/p AICD placment on chronic milrinone drip via R sided picc line, presenting with fever. She reports fever that started 2 days ago after cardiac catheterization. 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 New mid-line - Consider PICC next monday - electrophysiolodgist on board Discharge planning - new mid-line this afternoon for continual milrinone gtt. - Follow up with Dr. Bolton outpatient for port-a-cath placement in 4-6 weeks. Culture Blood Culture (06/13/17) serratia marcescens x 2 bottles - resistance to cefazolin - senstive to aztreonam, cefepime, ceftriazone, cipro, gentamicin PICC tip culture (06/15/17) - No sent Will s/r/d/w Dr. Childers <Krishan Childers S - Last Filed: 06/16/17 16:04> Objective - Vital Signs/Intake and Output Vital Signs (last 24 hours): Temp Pulse Resp BP Pulse Ox 98.4 F 83 20 107/58 L 100 06/16/17 12:00 06/16/17 12:00 06/16/17 12:00 06/16/17 12:00 06/16/17 06:00 Intake and Output: 06/16/17 06/16/17 06:59 18:59 Intake Total 1060 Output Total 300 Balance 760 - Medications Medications: Current Medications Carvedilol (Coreg) 25 mg PO BID [facility] Last Admin: 06/16/17 09:15 Dose: 25 mg Famotidine (Pepcid) 20 mg PO BID [facility] Last Admin: 06/16/17 09:15 Dose: 20 mg Furosemide (Lasix) 40 mg PO DAILY [facility] Last Admin: 06/16/17 09:16 Dose: 40 mg Vancomycin HCl (Vancomycin 1gm) 1 gm in 250 mls @ 167 mls/hr IVPB Q12H [facility] PRN Reason: Protocol Last Admin: 06/16/17 10:40 Dose: 167 mls/hr Milrinone Lactate/Dextrose (Primacor 20mg/100ml D5w) 100 mls @ 6.178 mls/hr IV .[id number] PRN; Protocol; 0.2 MCG/KG/MIN PRN Reason: TITRATE PER MD ORDER Last Admin: 06/16/17 11:02 Dose: 0.2 mcg/kg/min, 6.178 mls/hr Aztreonam (Azactam 2 Gm) 100 mls @ 100 mls/hr IVPB Q8 [facility] PRN Reason: Protocol Stop: 06/23/17 14:31 Last Admin: 06/16/17 13:46 Dose: 100 mls/hr Ibuprofen (Motrin Tab) 600 mg PO Q8H PRN PRN Reason: Fever >100.4 F Last Admin: 06/15/17 20:59 Dose: 600 mg Magnesium Oxide (Mag-Ox) 400 mg PO BID [facility] Last Admin: 06/16/17 09:14 Dose: 400 mg Potassium Chloride (K-Dur 20 Meq Er Tab) 20 meq PO BRK [facility] Prednisolone (Prednisolone Oral Soln) 10 mg PO DAILY [facility] Last Admin: 06/16/17 10:41 Dose: 3.4 ml Ramipril (Altace) 5 mg PO BID [facility] Last Admin: 06/16/17 09:21 Dose: Not Given Spironolactone (Aldactone) 25 mg PO BID [facility] Last Admin: 06/16/17 09:15 Dose: 25 mg - Labs Labs: 06/16/17 10:13 06/16/17 10:13 Assessment and Plan - Assessment and Plan (Free Text) Plan: Infectious Diseases Attending Physician Attestation Patient seen and examined, discussed with medical microbiologist. I have reviewed the pertinent clinical information for this patient. I agree with the above findings , assessment and plan. In addition, we will continue Azactam for this patient with sepsis due to Serratia bacteremia, probably from PICC line S/P removal R/O seeding of AICD. Follow up repeat blood cx.
[2017-06-16] MEDS: Magnesium Oxide 400 mg Tab UD PO SCH ×2 (09:14→17:22)
[2017-06-16 10:16] LABS: BASO # 0.01 K/mm3 (0.0-2.0); BASO % 0.1 % (0.0-3.0); EOS % 0.2 % (1.5-5.0); GRAN # 7.13 (1.4-6.5); GRAN % 83.9 % (50.0-68.0); HEMOGLOBIN 9.4 g/dL (12.0-16.0); LYMPH # 0.6 (1.2-3.4); LYMPH % 6.8 % (22.0-35.0); MEAN CELL VOLUME 73.8 fl (80.0-105.0); MEAN CORPUSCULAR HGB CONC 31.1 g/dl (31.0-37.0); MEAN PLATELET VOLUME 8.9 fl (7.0-11.0); MONO # 0.8 (0.1-0.6); PLATELET COUNT 199 10^3/uL (120.0-450.0); RBC 4.09 10^6/uL (3.5-6.1); RED CELL DISTRIBUTION WIDTH 17.8 % (11.5-14.5); WHITE BLOOD COUNT 8.5 10^3/ul (4.5-11.0)
[2017-06-16 10:25] LABS: ALB/GLOB RATIO 0.9 (1.1-1.8); ALT/SGPT 58 U/L (7-56); AST/SGOT 41 U/L (15-39); BLOOD UREA NITROGEN 13 mg/dL (7-21); CALCIUM 8.4 mg/dL (8.4-10.5); GFR AFRICAN-AMERICAN > 60; GFR NON-AFRICAN AMERICAN > 60
[2017-06-16] MEDS: Vancomycin 1gm in NS 250ml 1 GM/250 ML BAG IVPB SCH ×2 (10:40→21:58)
[2017-06-16] MEDS: PrednisoLONE 15 mg/5 ml Oral Syrup (240 ml) PO SCH (10:41)
[2017-06-16] MEDS: Milrinone 20mg/100ml D5W 100 ML IV PRN (11:02)
--- NOTE | 2017-06-16 11:22 | PN ---
DATE: SUBJECTIVE: The patient is seen and examined at the bedside, was getting midline in the left upper extremity. No nausea, vomiting, hematemesis, or hematochezia, Early in the morning rapid response was called for the patient. No hematemesis or hematochezia. No headache or dizziness. No chest pian, no palpitations. PHYSICAL EXAMINATION: VITAL SIGNS: Temperature 97.7, pulse 75, blood pressure 135/88, and respiratory rate 18. HEENT: Head is normocephalic and atraumatic. Eyes; PERRLA. Extraocular muscles intact. Conjunctivae clear. Nose patent. NECK: Supple. No carotid bruit. No JVD or thyromegaly. CHEST: Bilaterally symmetrical. HEART: S1 and S2 positive. LUNGS: Clear to auscultation. ABDOMEN: Soft. Bowel sounds present. No organomegaly. EXTREMITIES: No edema. No cyanosis. NEUROLOGIC: The patient is awake and alert. Moving all 4 extremities. No focal deficit. MEDICATIONS: Spironolactone, ramipril, aztreonam, carvedilol, furosemide, and magnesium oxide. LABORATORY DATA: White blood cell 2.4, hemoglobin 9.9, hematocrit 31.4, and platelets 248. Sodium 139, potassium 4.1, BUN 10, creatinine 0.8, glucose 99, AST 59, and ALT 55. ASSESSMENT AND PLAN: The patient is a 52-year-old lady with leukopenia, anemia, abnormal liver function test, has rapid response today early in the morning, seen by the embroidery operator, The patient has history of hypertension, cardiomyopathy with ejection fraction 20% to 25% on milrinone infusion, has followed up in [facility] for congestive heart failure, history of AICD, single lead, and history of Behet disease. The patient has sepsis, blood cultures positive today, we have rapid response, chronic obstructive pulmonary disease, looks like her infections are due to line infection from peripherally inserted central catheter versus AICD versus feeding from prior bacteremia. Infectious Disease is on the case, removed the peripherally inserted central catheter line, put a midline, history of methicillin-susceptible Staphylococcus aureus bacteremia from infected tunneled catheter in the chest wall after removal in 06/2016. The patient in need of another 2D echo. GI and DVT prophylaxis. Repeat labs. We will followup. Carisa Armstrong MD LILLY
--- NOTE | 2017-06-16 11:39 | CP.PCM.PN ---
Subjective - Date & Time of Evaluation Date of Evaluation: 06/16/17 Time of Evaluation: 11:34 - Subjective Subjective: Echo done and directly visualized by me: * Severe LV dysfunction EF 20-25% globalyy hypokinetic * Grade 1 Diastolic dysfunction with elevated LA pressure * Mild pulmonary HTN PASP 35mmhg * Mild MR, mild TR * Cardiac device lead seen entering into RV c/w with her hx of AICD * No evidence of any vegetation or mass on visualized portions of the MV,TV,AV, PV * No pericardial effusion PER ID: The PICC line was placed 3 months ago at [facility]; PICC removed (06/15/17, POD # 1) with new mid-line and new 22G peripheral IV (08/22) - sepsis worsened due to serratia marcescens bacteremia due to line infection from PICC vs AICD - history of MSSA bacteremia, 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 New mid-line - Consider PICC next monday - electrophysiolodgist on board Doubt any active infection of device at present continue ABX and f/u blood cultures. Continue CHF meds as prescribed (Coreg, ramipril, aldactone) Cont PRIMACOR and resume f/u with CHF clinic on discharge. Fluid restrict <1.5 L; Sodium restrictions <1.5grams Objective - Vital Signs/Intake and Output Vital Signs (last 24 hours): Temp Pulse Resp BP Pulse Ox 97.4 F L 82 20 107/62 100 06/16/17 11:00 06/16/17 11:02 06/16/17 06:00 06/16/17 11:02 06/16/17 06:00 Intake and Output: 06/16/17 06/16/17 06:59 18:59 Intake Total 1060 Output Total 300 Balance 760 - Medications Medications: Current Medications Carvedilol (Coreg) 25 mg PO BID [facility] Last Admin: 06/16/17 09:15 Dose: 25 mg Famotidine (Pepcid) 20 mg PO BID [facility] Last Admin: 06/16/17 09:15 Dose: 20 mg Furosemide (Lasix) 40 mg PO DAILY [facility] Last Admin: 06/16/17 09:16 Dose: 40 mg Vancomycin HCl (Vancomycin 1gm) 1 gm in 250 mls @ 167 mls/hr IVPB Q12H [facility] PRN Reason: Protocol Last Admin: 06/16/17 10:40 Dose: 167 mls/hr Milrinone Lactate/Dextrose (Primacor 20mg/100ml D5w) 100 mls @ 6.178 mls/hr IV .[id number] PRN; Protocol; 0.2 MCG/KG/MIN PRN Reason: TITRATE PER MD ORDER Last Admin: 06/16/17 11:02 Dose: 0.2 mcg/kg/min, 6.178 mls/hr Aztreonam (Azactam 2 Gm) 100 mls @ 100 mls/hr IVPB Q8 [facility]ST[facility] PRN Reason: Protocol Stop: 06/23/17 14:31 Last Admin: 06/16/17 05:03 Dose: 100 mls/hr Ibuprofen (Motrin Tab) 600 mg PO Q8H PRN PRN Reason: Fever >100.4 F Last Admin: 06/15/17 20:59 Dose: 600 mg Magnesium Oxide (Mag-Ox) 400 mg PO BID [facility] Last Admin: 06/16/17 09:14 Dose: 400 mg Prednisolone (Prednisolone Oral Soln) 10 mg PO DAILY [facility] Last Admin: 06/16/17 10:41 Dose: 3.4 ml Ramipril (Altace) 5 mg PO BID [facility] Last Admin: 06/16/17 09:21 Dose: Not Given Spironolactone (Aldactone) 25 mg PO BID [facility] Last Admin: 06/16/17 09:15 Dose: 25 mg - Labs Labs: 06/16/17 10:13 06/16/17 10:13
--- NOTE | 2017-06-16 14:10 | CARD ---
APPROVED REPORT EXAM: Two-dimensional and M-mode echocardiogram with Doppler and color Doppler. INDICATION Infection:Rule out subacute bacterial endocarditis 2D DIMENSIONS Left Atrium (2D)4.0 (1.6-4.0cm)IVSd1.0 (0.7-1.1cm) LVDd6.4 (3.9-5.9cm)PWd1.2 (0.7-1.1cm) LVDs5.7 (2.5-4.0cm)FS (%) 10.8 % LVEF (%)23.0 (>50%) M-Mode DIMENSIONS Aortic Root3.40 (2.2-3.7cm)Aortic Cusp Exc.1.90 (1.5-2.0cm) Aortic Valve AoV Peak Izugtbvh866.0cm/Nichole Peak GR.11mmHg Mitral Valve MV E Curpcpwa78.2cm/sMV A Trbwimas44.4cm/sE/A ratio0.9 TDI E/Lateral E'0.0E/Medial E'0.0 Tricuspid Valve TR Peak [id number]/sRAP [id number] Peak Gr.24mmHg [id number] LEFT VENTRICLE The Left Ventricle is mildly dilated. There is normal left ventricular wall thickness. The systolic function is severely impaired. Severly hypokinetic septum Transmitral Doppler flow pattern is Grade I-abnormal relaxation pattern. No left ventricle thrombus noted on this study. RIGHT VENTRICLE The right ventricle is normal size. There is normal right ventricular wall thickness. The right ventricular systolic function is normal. There is a pacemaker lead in the right ventricle. ATRIA The left atrium is borderline dilated. The right atrium is borderline dilated. AORTIC VALVE The aortic valve is mildly sclerotic. No aortic regurgitation is present. MITRAL VALVE The mitral valve is mildly thickened. Mitral regurgitation is trace. TRICUSPID VALVE There is mild tricuspid regurgitation. There is mild pulmonary hypertension. GREAT VESSELS The aortic root is normal in size. <Conclusion> The Left Ventricle is mildly dilated. There is normal left ventricular wall thickness. The systolic function is severely impaired. Severly hypokinetic septum Transmitral Doppler flow pattern is Grade I-abnormal relaxation pattern. No left ventricle thrombus noted on this study. There is mild tricuspid regurgitation. There is mild pulmonary hypertension.
[2017-06-16] MEDS: Potassium Chloride 20 mEq ER Tab PO SCH (17:21)
--- NOTE | 2017-06-16 23:12 | PN ---
DATE: 06/16/2017 PULMONARY PROGRESS NOTE REFERRING PHYSICIAN: Carisa Armstrong MD SUBJECTIVE: She is out of bed to chair, able to ambulate, PICC line in the right upper extremity had been removed. New midline PEG is placed yesterday on the left side. No headache. No rhinitis. No nausea, no vomiting, no diarrhea, no fever. PHYSICAL EXAMINATION: GENERAL: In no acute distress. VITAL SIGNS: Temperature is 98, heart rate is 83, respiratory rate is 20, blood pressure 107/58. HEENT: Moist mucous membranes. Crowded airway. Mallampati score is IV. NECK: Supple. No JVD. LUNGS: Fair airflow with few rhonchi. HEART: S1 and S2. ABDOMEN: Soft, nontender. No organomegaly. EXTREMITIES: No edema. NEUROLOGIC: Awake, alert, follows simple commands. CURRENT MEDICATIONS: She is on Aldactone 25 mg daily, Altace 5 mg twice a day, Azactam 2 g IV q. 8 hours, Coreg 25 mg twice a day, K-Dur 20 mEq daily, Lasix 40 mg daily, magnesium oxide 400 mg twice a day, Motrin 600 mg q. 8 hours p.r.n., Pepcid 20 mg twice a day, prednisone 10 mg daily, Primacor IV, vancomycin 1 g IV q. 12 hours. LABORATORY DATA: Shows hemoglobin 9.4, hematocrit 30.2, WBC 8.5, platelet count is 199. Sodium 138, potassium 3.4, chloride 107, bicarbonate 23, BUN 13, creatinine 0.9. Glucose 141, calcium 8.4, AST 41, ALT 58, alkaline phosphatase is 114, albumin is 3.0. Vitamin B12 is 522. Blood cultures shows Serratia marcescens. Had echocardiogram done which shows left ventricle is mildly dilated, normal left ventricle wall thickening, severe hypokinetic septum. No left ventricle thrombus noted. There is a mild tricuspid regurgitation, there is mild pulmonary hypertension, systolic function is severely impaired. IMPRESSION AND PLAN: Probably line sepsis with bacteremia, cardiomyopathy, Primacor dependent, obesity, may have sleep apnea syndrome, transthoracic echo is unremarkable. So continue antibiotics as per infectious diseases, sleep apnea precautions, keep head at 45 degrees. Gastric prophylaxis, DVT prophylaxis. Once the bacteremia is gone, the patient will need regular PICC line. May streamline antibiotics as per infectious disease. Thank you, I will follow with you. Cruz Teran MD
[2017-06-17] MEDS: Milrinone 20mg/100ml D5W 100 ML IV PRN ×2 (03:35→20:51)
[2017-06-17] MEDS: Aztreonam 2 Gm in NS 100mL 100 ML IVPB SCH ×3 (05:14→22:43)
[2017-06-17] MEDS: Potassium Chloride 20 mEq ER Tab PO SCH (08:59)
[2017-06-17] MEDS: Magnesium Oxide 400 mg Tab UD PO SCH ×2 (10:55→17:37)
[2017-06-17] MEDS: PrednisoLONE 15 mg/5 ml Oral Syrup (240 ml) PO SCH (11:16)
--- NOTE | 2017-06-17 20:50 | CP.PCM.PN ---
Subjective - Date & Time of Evaluation Date of Evaluation: 06/17/17 Time of Evaluation: 10:35 - Subjective Subjective: Comfortable, no fevers overnight, no nausea, no diarrhea. Objective - Vital Signs/Intake and Output Vital Signs (last 24 hours): Temp Pulse Resp BP Pulse Ox 98.5 F 89 20 137/80 99 06/17/17 06:00 06/17/17 06:00 06/17/17 06:00 06/17/17 06:00 06/17/17 06:00 Intake and Output: 06/17/17 06/17/17 06:59 18:59 Intake Total 578 Balance 578 - Medications Medications: Current Medications Carvedilol (Coreg) 25 mg PO BID [facility] Last Admin: 06/16/17 17:21 Dose: 25 mg Famotidine (Pepcid) 20 mg PO BID [facility] Last Admin: 06/16/17 17:22 Dose: 20 mg Furosemide (Lasix) 40 mg PO DAILY [facility] Last Admin: 06/16/17 09:16 Dose: 40 mg Milrinone Lactate/Dextrose (Primacor 20mg/100ml D5w) 100 mls @ 6.178 mls/hr IV .[id number] PRN; Protocol; 0.2 MCG/KG/MIN PRN Reason: TITRATE PER MD ORDER Last Admin: 06/17/17 03:35 Dose: 0.2 mcg/kg/min, 6.178 mls/hr Aztreonam (Azactam 2 Gm) 100 mls @ 100 mls/hr IVPB Q8 [facility] PRN Reason: Protocol Stop: 06/23/17 14:31 Last Admin: 06/17/17 05:14 Dose: 100 mls/hr Ibuprofen (Motrin Tab) 600 mg PO Q8H PRN PRN Reason: Fever >100.4 F Last Admin: 06/15/17 20:59 Dose: 600 mg Magnesium Oxide (Mag-Ox) 400 mg PO BID [facility] Last Admin: 06/16/17 17:22 Dose: 400 mg Potassium Chloride (K-Dur 20 Meq Er Tab) 20 meq PO BRK [facility] Last Admin: 06/16/17 17:21 Dose: 20 meq Prednisolone (Prednisolone Oral Soln) 10 mg PO DAILY [facility] Last Admin: 06/16/17 10:41 Dose: 3.4 ml Ramipril (Altace) 5 mg PO BID [facility] Last Admin: 06/16/17 17:23 Dose: Not Given Spironolactone (Aldactone) 25 mg PO BID [facility] Last Admin: 06/16/17 17:21 Dose: 25 mg - Labs Labs: 06/16/17 10:13 06/16/17 10:13 - Constitutional Appears: Non-toxic, No Acute Distress - Head Exam Head Exam: NORMAL INSPECTION - Neck Exam Neck Exam: absent: Meningismus - Respiratory Exam Respiratory Exam: Decreased Breath Sounds - Cardiovascular Exam Cardiovascular Exam: +S1, +S2 - GI/Abdominal Exam GI & Abdominal Exam: Soft. absent: Tenderness Assessment and Plan - Assessment and Plan (Free Text) Plan: Assessment Sepsis due to Serratia bacteremia probably PICC-line related S/P removal of the PICC line history of Klebsiella bacteremia from UTI (2015) history of Methicillin-sensitive Staph aureus bacteremia, persistent from infected tunneled catheter infection in the right anterior chest wall S/P removal (2015) CHF with end-stage cardiomyopathy Coronary artery disease DM S/P AICD placement Plan continue Azactam and will follow up repeat blood cx after the PICC was removed; if the cultures are negative, will need at least 2 weeks of antibiotics will continue to monitor clinically
--- NOTE | 2017-06-18 01:06 | PN ---
DATE: 06/17/2017 PULMONARY PROGRESS NOTE REFERRING PHYSICIAN: Carisa Armstrong MD SUBJECTIVE: The patient is sitting side of the bed, at bedside. Night was unremarkable. No more fever. No chest pain. No nausea, no vomiting, no diarrhea. No leg pain, no leg swelling. OBJECTIVE: GENERAL: No acute distress. VITAL SIGNS: Temperature is 99, heart rate is 90, respiratory rate is 20, blood pressure is 108/71, pulse ox 97% on nasal cannula. HEENT: Moist mucous membranes. Crowded airway. Mallampati score is IV. NECK: Supple. No JVD. LUNGS: Fair airflow with few rhonchi. HEART: S1 and S2. ABDOMEN: Soft, nontender. No organomegaly. EXTREMITIES: There is no edema. NEUROLOGIC: Awake, alert, follows simple commands. MEDICATIONS: She is on Aldactone 25 mg twice a day, Altace 5 mg twice a day, Azactam 2 g IV q. 8 hours, Coreg 25 mg twice a day, potassium 20 mEq daily, Lasix 40 mg daily, magnesium oxide 400 mg twice a day, Motrin 600 mg q. 8 hours p.r.n., Pepcid 20 mg twice a day, prednisone 10 mg daily, and Primacor IV drip. LABORATORY DATA: Shows no new lab is available since yesterday. Microbiology: PICC line as well as blood culture has Serratia marcescens, sensitivity shows its resistance to Cefazolin. IMPRESSION AND PLAN: Line sepsis with bacteremia, cardiomyopathy, Primacor dependent, may have sleep apnea syndrome, history of Behcet's disease, steroids dependent. The patient's abstracter is at [facility], many months she did not see her, but continue taking her prednisone, so spoke about prednisone side effect and benefit. The patient is willing to try to decrease the dose. We will decrease to 7.5 mg daily and watch closely on 7.5 mg for another two weeks or so. If does well, may decrease to 5 mg. She should have rheumatology followup as outpatient, sleep apnea precautions, recommended sleep study as an outpatient. Discharge planning was cleared by Infectious Diseases to complete antibiotics as outpatient and place back a new PICC line once the blood is sterile. Thank you, and we will follow with you. Cruz Teran MD
--- NOTE | 2017-06-18 01:55 | PN ---
SUBJECTIVE: The patient was seen and examined at the bedside, looking comfortable. No nausea, vomiting, diarrhea. No hematemesis, hematochezia. No swelling noted of the legs. No chest pain, no palpitation. No headache or dizziness. PHYSICAL EXAMINATION: VITAL SIGNS: Temperature 99.1, pulse 84, blood pressure 111/76, respiratory rate 20. HEENT: Head normocephalic, atraumatic. Eyes, PERRLA. Extraocular muscles intact. Conjunctivae clear. Nose patent. Mucous membranes moist. NECK: Supple. No carotid bruit. No JVD, thyromegaly. CHEST: Bilaterally symmetrical. HEART: S1, S2 positive. LUNGS: Clear to auscultation. ABDOMEN: Soft. Bowel sounds present. No organomegaly. EXTREMITIES: No edema, no cyanosis. NEUROLOGIC: The patient is awake, alert. Moving all 4 extremities. No focal deficits. LABORATORY DATA: White blood cells 8.5, hemoglobin 9.4, hematocrit 30.2, platelets 199. Sodium 138, potassium 3.4, BUN 13, creatinine 0.9, AST 41, ALT 58. MEDICATIONS: Spironolactone, ramipril, Azactam, Coreg, potassium, Lasix, magnesium oxide, Motrin, Pepcid, prednisone, Primacor. ASSESSMENT AND PLAN: The patient is 52-year-old lady with history of hypokalemia, abnormal liver function tests, hematuria, anemia, sepsis with bacteremia, severe cardiomyopathy, Primacor dependent, obesity, sleep apnea syndrome. Transthoracic echocardiogram is unremarkable. Continue antibiotics as per infectious disease. Gastric prophylaxis. DVT prophylaxis. After treatment of bacteremia, need PICC line. Dr. Phil Bolton is on the case. We will follow. Carisa Armstrong MD
[2017-06-18] MEDS: Aztreonam 2 Gm in NS 100mL 100 ML IVPB SCH ×3 (06:10→21:47)
[2017-06-18 07:54] LABS: HEMOGLOBIN 9.4 g/dL (12.0-16.0); MEAN CELL VOLUME 72.7 fl (80.0-105.0); MEAN CORPUSCULAR HEMOGLOBIN 22.9 pg (25.0-35.0); MEAN CORPUSCULAR HGB CONC 31.5 g/dl (31.0-37.0); MEAN PLATELET VOLUME 9.8 fl (7.0-11.0); RBC 4.1 10^6/uL (3.5-6.1); RED CELL DISTRIBUTION WIDTH 17.7 % (11.5-14.5); WHITE BLOOD COUNT 6.7 10^3/ul (4.5-11.0)
[2017-06-18 08:07] LABS: BLOOD UREA NITROGEN 13 mg/dL (7-21); CALCIUM 8.5 mg/dL (8.4-10.5); GFR AFRICAN-AMERICAN > 60; GFR NON-AFRICAN AMERICAN > 60
[2017-06-18] MEDS: Potassium Chloride 20 mEq ER Tab PO SCH (08:29)
[2017-06-18] MEDS: Magnesium Oxide 400 mg Tab UD PO SCH ×2 (09:52→17:45)
[2017-06-18] MEDS: PrednisoLONE 15 mg/5 ml Oral Syrup (240 ml) PO SCH (11:25)
--- NOTE | 2017-06-18 13:13 | CP.PCM.PN ---
Subjective - Date & Time of Evaluation Date of Evaluation: 06/18/17 Time of Evaluation: 13:00 - Subjective Subjective: Pt has very poor veins,needs iv access Objective - Vital Signs/Intake and Output Vital Signs (last 24 hours): Temp Pulse Resp BP Pulse Ox 98.5 F 85 20 130/90 20 L 06/18/17 06:00 06/18/17 09:51 06/18/17 00:01 06/18/17 09:58 06/18/17 06:00 Intake and Output: 06/18/17 06/18/17 06:59 18:59 Intake Total 100 Output Total 0 Balance 100 - Medications Medications: Current Medications Carvedilol (Coreg) 25 mg PO BID [facility] Last Admin: 06/18/17 09:51 Dose: 25 mg Famotidine (Pepcid) 20 mg PO BID [facility] Last Admin: 06/18/17 09:51 Dose: 20 mg Furosemide (Lasix) 40 mg PO DAILY [facility] Last Admin: 06/18/17 09:52 Dose: 40 mg Milrinone Lactate/Dextrose (Primacor 20mg/100ml D5w) 100 mls @ 6.178 mls/hr IV .[id number] PRN; Protocol; 0.2 MCG/KG/MIN PRN Reason: TITRATE PER MD ORDER Last Admin: 06/17/17 20:51 Dose: 0.2 mcg/kg/min, 6.178 mls/hr Aztreonam (Azactam 2 Gm) 100 mls @ 100 mls/hr IVPB Q8 NESTOR PRN Reason: Protocol Stop: 06/23/17 14:31 Last Admin: 06/18/17 06:10 Dose: 100 mls/hr Ibuprofen (Motrin Tab) 600 mg PO Q8H PRN PRN Reason: Fever >100.4 F Last Admin: 06/15/17 20:59 Dose: 600 mg Magnesium Oxide (Mag-Ox) 400 mg PO BID [facility] Last Admin: 06/18/17 09:52 Dose: 400 mg Potassium Chloride (K-Dur 20 Meq Er Tab) 20 meq PO BRK [facility] Last Admin: 06/18/17 08:29 Dose: 20 meq Prednisolone (Prednisolone Oral Soln) 10 mg PO DAILY [facility] Last Admin: 06/18/17 11:25 Dose: 3.4 ml Ramipril (Altace) 5 mg PO BID [facility] Last Admin: 06/18/17 09:58 Dose: 5 mg Spironolactone (Aldactone) 25 mg PO BID [facility] Last Admin: 06/18/17 09:51 Dose: 25 mg - Labs Labs: 06/18/17 07:42 06/18/17 07:42 - Constitutional Appears: No Acute Distress Assessment and Plan - Assessment and Plan (Free Text) Assessment: Poor venous access Plan: Hep lock inserted in the R hand. # 24 angiocath used.
[2017-06-18] MEDS: Milrinone 20mg/100ml D5W 100 ML IV PRN (13:14)
--- NOTE | 2017-06-18 16:06 | CP.PCM.PN ---
Subjective - Date & Time of Evaluation Date of Evaluation: 06/18/17 Time of Evaluation: 11:10 - Subjective Subjective: Comfortable, afebrile, not in distress. Objective - Vital Signs/Intake and Output Vital Signs (last 24 hours): Temp Pulse Resp BP Pulse Ox 98.5 F 70 20 149/71 20 L 06/18/17 06:00 06/18/17 06:00 06/18/17 00:01 06/18/17 06:00 06/18/17 06:00 Intake and Output: 06/18/17 06/18/17 06:59 18:59 Intake Total 100 Output Total 0 Balance 100 - Medications Medications: Current Medications Carvedilol (Coreg) 25 mg PO BID [facility] Last Admin: 06/17/17 17:37 Dose: 25 mg Famotidine (Pepcid) 20 mg PO BID [facility] Last Admin: 06/17/17 17:37 Dose: 20 mg Furosemide (Lasix) 40 mg PO DAILY [facility] Last Admin: 06/17/17 10:56 Dose: 40 mg Milrinone Lactate/Dextrose (Primacor 20mg/100ml D5w) 100 mls @ 6.178 mls/hr IV .[id number] PRN; Protocol; 0.2 MCG/KG/MIN PRN Reason: TITRATE PER MD ORDER Last Admin: 06/17/17 20:51 Dose: 0.2 mcg/kg/min, 6.178 mls/hr Aztreonam (Azactam 2 Gm) 100 mls @ 100 mls/hr IVPB Q8 NESTOR PRN Reason: Protocol Stop: 06/23/17 14:31 Last Admin: 06/18/17 06:10 Dose: 100 mls/hr Ibuprofen (Motrin Tab) 600 mg PO Q8H PRN PRN Reason: Fever >100.4 F Last Admin: 06/15/17 20:59 Dose: 600 mg Magnesium Oxide (Mag-Ox) 400 mg PO BID [facility] Last Admin: 06/17/17 17:37 Dose: 400 mg Potassium Chloride (K-Dur 20 Meq Er Tab) 20 meq PO BRK [facility] Last Admin: 06/17/17 08:59 Dose: 20 meq Prednisolone (Prednisolone Oral Soln) 10 mg PO DAILY [facility] Last Admin: 06/17/17 11:16 Dose: 5 ml Ramipril (Altace) 5 mg PO BID [facility] Last Admin: 06/17/17 17:40 Dose: 5 mg Spironolactone (Aldactone) 25 mg PO BID [facility] Last Admin: 06/17/17 17:37 Dose: 25 mg - Labs Labs: 06/18/17 07:42 06/16/17 10:13 - Constitutional Appears: Non-toxic, No Acute Distress - Head Exam Head Exam: NORMAL INSPECTION - ENT Exam ENT Exam: Mucous Membranes Moist - Neck Exam Neck Exam: absent: Lymphadenopathy, Meningismus - Respiratory Exam Respiratory Exam: Decreased Breath Sounds - Cardiovascular Exam Cardiovascular Exam: +S1, +S2 - GI/Abdominal Exam GI & Abdominal Exam: Soft. absent: Tenderness Assessment and Plan - Assessment and Plan (Free Text) Plan: Assessment Sepsis due to Serratia bacteremia probably PICC-line related S/P removal of the PICC line - blood cx are now clear since line removal history of Klebsiella bacteremia from UTI (2015) history of Methicillin-sensitive Staph aureus bacteremia, persistent from infected tunneled catheter infection in the right anterior chest wall S/P removal (2015) CHF with end-stage cardiomyopathy Coronary artery disease DM S/P AICD placement Plan continue Azactam day 2(from negative blood cx); repeat blood cx after the PICC was removed are now negative; will need at least 2 weeks of antibiotics will continue to monitor clinically
--- NOTE | 2017-06-18 23:34 | CP.PCM.PN ---
Subjective - Date & Time of Evaluation Date of Evaluation: 06/18/17 Time of Evaluation: 08:00 - Subjective Subjective: pt is seen and examined at bed side , is sitting on the bed side , looking comfortable .lateron nurse called me that she is feeling shevring tylanol given Objective - Vital Signs/Intake and Output Vital Signs (last 24 hours): Temp Pulse Resp BP Pulse Ox 98.5 F 69 16 126/77 20 L 06/18/17 17:51 06/18/17 18:00 06/18/17 17:51 06/18/17 17:51 06/18/17 06:00 Intake and Output: 06/18/17 06/19/17 18:59 06:59 Intake Total 825 Balance 825 - Medications Medications: Current Medications Carvedilol (Coreg) 25 mg PO BID [facility] Last Admin: 06/18/17 17:44 Dose: 25 mg Famotidine (Pepcid) 20 mg PO BID [facility] Last Admin: 06/18/17 17:44 Dose: 20 mg Furosemide (Lasix) 40 mg PO DAILY [facility] Last Admin: 06/18/17 09:52 Dose: 40 mg Milrinone Lactate/Dextrose (Primacor 20mg/100ml D5w) 100 mls @ 6.178 mls/hr IV .[id number] PRN; Protocol; 0.2 MCG/KG/MIN PRN Reason: TITRATE PER MD ORDER Last Admin: 06/18/17 13:14 Dose: 0.2 mcg/kg/min, 6.178 mls/hr Aztreonam (Azactam 2 Gm) 100 mls @ 100 mls/hr IVPB Q8 NESTOR PRN Reason: Protocol Stop: 06/23/17 14:31 Last Admin: 06/18/17 21:47 Dose: 100 mls/hr Ibuprofen (Motrin Tab) 600 mg PO Q8H PRN PRN Reason: Fever >100.4 F Last Admin: 06/15/17 20:59 Dose: 600 mg Magnesium Oxide (Mag-Ox) 400 mg PO BID [facility] Last Admin: 06/18/17 17:45 Dose: 400 mg Potassium Chloride (K-Dur 20 Meq Er Tab) 20 meq PO BRK [facility] Last Admin: 06/18/17 08:29 Dose: 20 meq Prednisolone (Prednisolone Oral Soln) 10 mg PO DAILY [facility] Last Admin: 06/18/17 11:25 Dose: 3.4 ml Ramipril (Altace) 5 mg PO BID [facility] Last Admin: 06/18/17 17:45 Dose: 5 mg Spironolactone (Aldactone) 25 mg PO BID [facility] Last Admin: 06/18/17 17:45 Dose: 25 mg - Labs Labs: 06/18/17 07:42 06/18/17 07:42 - Constitutional Appears: Well - Head Exam Head Exam: ATRAUMATIC, NORMAL INSPECTION, NORMOCEPHALIC - Eye Exam Eye Exam: EOMI, Normal appearance, PERRL Pupil Exam: NORMAL ACCOMODATION, PERRL - ENT Exam ENT Exam: Mucous Membranes Moist, Normal Exam - Neck Exam Neck Exam: Full ROM, Normal Inspection. absent: Lymphadenopathy - Respiratory Exam Respiratory Exam: Clear to Ausculation Bilateral, NORMAL BREATHING PATTERN - Cardiovascular Exam Cardiovascular Exam: REGULAR RHYTHM, +S1, +S2. absent: Murmur - GI/Abdominal Exam GI & Abdominal Exam: Soft, Normal Bowel Sounds. absent: Tenderness - Rectal Exam Rectal Exam: NORMAL INSPECTION - Exam Exam: Circumcision, NORMAL INSPECTION External exam: NORMAL EXTERNAL EXAM Speculum exam: NORMAL SPECULUM EXAM Bimanual exam: NORMAL BIMANUAL EXAM - Extremities Exam Extremities Exam: Full ROM, Normal Capillary Refill, Normal Inspection. absent : Joint Swelling, Pedal Edema - Back Exam Back Exam: NORMAL INSPECTION - Neurological Exam Neurological Exam: Alert, Awake, CN II-XII Intact, Normal Gait, Oriented x3 - Psychiatric Exam Psychiatric exam: Normal Affect, Normal Mood - Skin Skin Exam: Dry, Intact, Normal Color, Warm Assessment and Plan - Assessment and Plan (Free Text) Assessment: Sepsis due to Serratia bacteremia probably PICC-line related S/P removal of the PICC line - blood cx are now clear since line removal history of Klebsiella bacteremia from UTI (2015) history of Methicillin-sensitive Staph aureus bacteremia, persistent from infected tunneled catheter infection in the right anterior chest wall S/P removal (2015) CHF with end-stage cardiomyopathy Coronary artery disease DM S/P AICD placement Plan continue Azactam day 2(from negative blood cx); repeat blood cx after the PICC was removed are now negative; will need at least 2 weeks of antibiotics, will try to arrange home anb. will continue to monitor clinically
--- NOTE | 2017-06-19 01:56 | PN ---
DATE: 06/18/2017 SUBJECTIVE: The patient is resting in bed. No complaints of increased shortness of breath, cough, wheezing, chest congestion, is comfortable on room air. PHYSICAL EXAMINATION: VITAL SIGNS: Her temperature is 97.8, her pulse is 89, respirations are 22, and blood pressure is 134/91. SKIN: Warm and dry. HEAD: Atraumatic, normocephalic. EYES: Reactive to light. ENT: Seems to be within normal limits. NECK: Supple. No JVD. No thyroid enlargement. No lymph nodes. HEART: Regular rate and rhythm. Normal S1, S2. LUNGS: Reveal few rhonchi at the bases. ABDOMEN: Soft, nontender, normal bowel sounds. No organomegaly noted. GENITOURINARY: Deferred. RECTAL: Deferred. MUSCULOSKELETAL: No joint deformities. EXTREMITIES: Revealed no edema. NEUROLOGICAL: She seems to be grossly intact. IMPRESSION: This patient has line sepsis with bacteremia, cardiomyopathy, and obstructive sleep apnea, as well as history of Behcet's disease. We will continue on steroids, O2 via nasal cannula, bronchodilator, and continue to treat aggressively along with the other consultants and the primary care doctor. Herbie Louise MD
[2017-06-19] MEDS: Aztreonam 2 Gm in NS 100mL 100 ML IVPB SCH ×3 (05:34→22:01)
[2017-06-19] MEDS: Milrinone 20mg/100ml D5W 100 ML IV PRN ×2 (05:34→22:45)
--- NOTE | 2017-06-19 08:09 | PN ---
SUBJECTIVE: The patient is a 52-year-old female. The patient is seen and examined at the bedside, looking comfortable. No more fever, no nausea, no vomiting, no diarrhea, no chills. No headache, no dizziness, having midline on the left upper extremities. PHYSICAL EXAMINATION: VITAL SIGNS: Temperature 98.4, pulse 81, blood pressure 107/58, respiratory rate 20. HEENT: Head is normocephalic and atraumatic. Eyes; PERRLA. Extraocular muscles intact. Conjunctivae clear. Nose patent. Mucous membranes moist. NECK: Supple. No carotid bruit. No JVD or thyromegaly. CHEST: Bilaterally symmetrical. HEART: S1 and S2 positive. LUNGS: Clear to auscultation. ABDOMEN: Soft. Bowel sounds present. No organomegaly. EXTREMITIES: No edema. No cyanosis. NEUROLOGIC: The patient is awake and alert. Moving all 4 extremities. No focal deficit. MEDICATIONS: Aldactone, Altace, Azactam, Coreg, K-Dur, Lasix, magnesium oxide, ibuprofen, Pepcid, prednisone, milrinone drip, and vancomycin. LABORATORY DATA: White blood cell 8.5, hemoglobin 9.4, hematocrit 30.2, and platelets 199. Sodium 130, potassium 3.4, BUN 13, creatinine 0.9, AST 41 and ALT 58. ASSESSMENT AND PLAN: Mr. Korey Carpenter 52-year-old female with leukopenia, anemia, hypokalemia replaced, hyperglycemia, abnormal liver function test, history of congestive heart failure with end-stage cardiomyopathy, replacement on chronic milrinone drip where I started peripherally inserted central catheter line, came with fever. According to the patient, she started fever two days ago after cardiac catheterization. Peripherally inserted central catheter line was placed three months ago in [facility] by Dr. Phil Bolton. Now new midline port. The PICC line removed, sepsis worsened due to infected line from peripherally inserted central catheter verus automatic implantable cardioverter-defibrillator. History of methicillin-susceptible staphylococcus aureus bacteremia, the patient received a tunnel like catheter insertion in the right anterior chest wall and removal in 06/2016. History of Klebsiella pneumonia, urinary tract infection, diabetes mellitus, getting cefepime and acetaminophen therapy. Now getting vancomycin day 3, got one dose of amikacin, and got aztreonam one dose. We are planing to put peripherally inserted central catheter line next Monday. Gastrointestinal and deep venous thrombosis prophylaxis. Continue antibiotics as per infectious diseases, Gastrointestinal and deep venous thrombosis prophylaxis and we will follow up Carisa Armstrong MD MTDKale
[2017-06-19] MEDS: Potassium Chloride 20 mEq ER Tab PO SCH (08:59)
[2017-06-19] MEDS: Magnesium Oxide 400 mg Tab UD PO SCH ×2 (09:00→18:35)
[2017-06-19] MEDS: PrednisoLONE 15 mg/5 ml Oral Syrup (240 ml) PO SCH (12:57)
--- NOTE | 2017-06-19 16:11 | CP.PCM.PN ---
Subjective - Date & Time of Evaluation Date of Evaluation: 06/19/17 Time of Evaluation: 11:00 - Subjective Subjective: Comfortable, afebrile, not in distress. Objective - Vital Signs/Intake and Output Vital Signs (last 24 hours): Temp Pulse Resp BP Pulse Ox 98.4 F 69 20 142/75 97 06/19/17 06:00 06/19/17 06:00 06/19/17 06:00 06/19/17 06:00 06/19/17 06:00 Intake and Output: 06/19/17 06/19/17 06:59 18:59 Intake Total 374 430 Balance 374 430 - Medications Medications: Current Medications Carvedilol (Coreg) 25 mg PO BID [facility] Last Admin: 06/18/17 17:44 Dose: 25 mg Famotidine (Pepcid) 20 mg PO BID [facility] Last Admin: 06/18/17 17:44 Dose: 20 mg Furosemide (Lasix) 40 mg PO DAILY [facility] Last Admin: 06/18/17 09:52 Dose: 40 mg Milrinone Lactate/Dextrose (Primacor 20mg/100ml D5w) 100 mls @ 6.178 mls/hr IV .[id number] PRN; Protocol; 0.2 MCG/KG/MIN PRN Reason: TITRATE PER MD ORDER Last Admin: 06/19/17 05:34 Dose: 0.2 mcg/kg/min, 6.178 mls/hr Aztreonam (Azactam 2 Gm) 100 mls @ 100 mls/hr IVPB Q8 NESTOR PRN Reason: Protocol Stop: 06/23/17 14:31 Last Admin: 06/19/17 05:34 Dose: 100 mls/hr Ibuprofen (Motrin Tab) 600 mg PO Q8H PRN PRN Reason: Fever >100.4 F Last Admin: 06/15/17 20:59 Dose: 600 mg Magnesium Oxide (Mag-Ox) 400 mg PO BID [facility] Last Admin: 06/18/17 17:45 Dose: 400 mg Potassium Chloride (K-Dur 20 Meq Er Tab) 20 meq PO BRK [facility] Last Admin: 06/18/17 08:29 Dose: 20 meq Prednisolone (Prednisolone Oral Soln) 10 mg PO DAILY [facility] Last Admin: 06/18/17 11:25 Dose: 3.4 ml Ramipril (Altace) 5 mg PO BID [facility] Last Admin: 06/18/17 17:45 Dose: 5 mg Spironolactone (Aldactone) 25 mg PO BID [facility] Last Admin: 06/18/17 17:45 Dose: 25 mg - Labs Labs: 06/18/17 07:42 06/18/17 07:42 - Constitutional Appears: Non-toxic, No Acute Distress - Head Exam Head Exam: NORMAL INSPECTION - ENT Exam ENT Exam: Mucous Membranes Moist - Neck Exam Neck Exam: absent: Lymphadenopathy, Meningismus - Respiratory Exam Respiratory Exam: Decreased Breath Sounds - Cardiovascular Exam Cardiovascular Exam: +S1, +S2 - GI/Abdominal Exam GI & Abdominal Exam: Soft. absent: Tenderness Assessment and Plan - Assessment and Plan (Free Text) Plan: Assessment Sepsis due to Serratia bacteremia probably PICC-line related S/P removal of the PICC line - blood cx are now clear since line removal history of Klebsiella bacteremia from UTI (2015) history of Methicillin-sensitive Staph aureus bacteremia, persistent from infected tunneled catheter infection in the right anterior chest wall S/P removal (2015) CHF with end-stage cardiomyopathy Coronary artery disease DM S/P AICD placement Plan continue Azactam day 3 (from negative blood cx); repeat blood cx after the PICC was removed are now negative; will need at least 2 weeks of antibiotics will continue to monitor clinically
[2017-06-19] MEDS ORDERED: PrednisoLONE 15 mg/5 ml Oral Syrup (240 ml) PO SCH (18:07)
--- NOTE | 2017-06-19 22:03 | CP.PCM.PN ---
Subjective - Date & Time of Evaluation Date of Evaluation: 06/19/15 Time of Evaluation: 08:00 - Subjective Subjective: Comfortable, afebrile, not in distress.getting anb. no n.v.d , sleep is ok Objective - Vital Signs/Intake and Output Vital Signs (last 24 hours): Temp Pulse Resp BP Pulse Ox 98.4 F 83 20 100/50 L 97 06/19/17 18:00 06/19/17 18:00 06/19/17 18:00 06/19/17 18:36 06/19/17 06:00 Intake and Output: 06/19/17 06/20/17 18:59 06:59 Intake Total 790 Balance 790 - Medications Medications: Current Medications Carvedilol (Coreg) 25 mg PO BID [facility] Last Admin: 06/19/17 18:36 Dose: Not Given Famotidine (Pepcid) 20 mg PO BID [facility] Last Admin: 06/19/17 18:36 Dose: 20 mg Furosemide (Lasix) 40 mg PO DAILY [facility] Last Admin: 06/19/17 09:00 Dose: 40 mg Milrinone Lactate/Dextrose (Primacor 20mg/100ml D5w) 100 mls @ 6.178 mls/hr IV .[id number] PRN; Protocol; 0.2 MCG/KG/MIN PRN Reason: TITRATE PER MD ORDER Last Admin: 06/19/17 05:34 Dose: 0.2 mcg/kg/min, 6.178 mls/hr Aztreonam (Azactam 2 Gm) 100 mls @ 100 mls/hr IVPB Q8 NESTOR PRN Reason: Protocol Stop: 06/29/17 14:31 Last Admin: 06/19/17 14:03 Dose: 100 mls/hr Ibuprofen (Motrin Tab) 600 mg PO Q8H PRN PRN Reason: Fever >100.4 F Last Admin: 06/15/17 20:59 Dose: 600 mg Magnesium Oxide (Mag-Ox) 400 mg PO BID [facility] Last Admin: 06/19/17 18:35 Dose: 400 mg Potassium Chloride (K-Dur 20 Meq Er Tab) 20 meq PO BRK [facility] Last Admin: 06/19/17 08:59 Dose: 20 meq Prednisolone (Prednisolone Oral Soln) 7.5 mg PO DAILY [facility] Ramipril (Altace) 5 mg PO BID [facility] Last Admin: 06/19/17 18:36 Dose: Not Given Spironolactone (Aldactone) 25 mg PO BID [facility] Last Admin: 06/19/17 18:36 Dose: 25 mg - Labs Labs: 06/18/17 07:42 06/18/17 07:42 - Constitutional Appears: Well - Head Exam Head Exam: ATRAUMATIC, NORMAL INSPECTION, NORMOCEPHALIC - Eye Exam Eye Exam: EOMI, Normal appearance, PERRL Pupil Exam: NORMAL ACCOMODATION, PERRL - ENT Exam ENT Exam: Mucous Membranes Moist, Normal Exam - Neck Exam Neck Exam: Full ROM, Normal Inspection. absent: Lymphadenopathy - Respiratory Exam Respiratory Exam: Clear to Ausculation Bilateral, NORMAL BREATHING PATTERN - Cardiovascular Exam Cardiovascular Exam: REGULAR RHYTHM, +S1, +S2. absent: Murmur - GI/Abdominal Exam GI & Abdominal Exam: Soft, Normal Bowel Sounds. absent: Tenderness - Rectal Exam Rectal Exam: NORMAL INSPECTION - Exam Exam: Circumcision, NORMAL INSPECTION External exam: NORMAL EXTERNAL EXAM Speculum exam: NORMAL SPECULUM EXAM Bimanual exam: NORMAL BIMANUAL EXAM - Extremities Exam Extremities Exam: Full ROM, Normal Capillary Refill, Normal Inspection. absent : Joint Swelling, Pedal Edema - Back Exam Back Exam: NORMAL INSPECTION - Neurological Exam Neurological Exam: Alert, Awake, CN II-XII Intact, Normal Gait, Oriented x3 - Psychiatric Exam Psychiatric exam: Normal Affect, Normal Mood - Skin Skin Exam: Dry, Intact, Normal Color, Warm Assessment and Plan - Assessment and Plan (Free Text) Assessment: Sepsis due to Serratia bacteremia probably PICC-line related S/P removal of the PICC line - blood cx are now clear since line removal history of Klebsiella bacteremia from UTI (2015) history of Methicillin-sensitive Staph aureus bacteremia, persistent from infected tunneled catheter infection in the right anterior chest wall S/P removal (2015) CHF with end-stage cardiomyopathy Coronary artery disease DM S/P AICD placement baschet disease getting anb . Plan continue Azactam day 3 (from negative blood cx); repeat blood cx after the PICC was removed are now negative; will need at least 2 weeks of antibiotics will continue to monitor clinically, trying to arrange with home infusion , oob , pt . gi , dvt prophylaxex
--- NOTE | 2017-06-19 22:58 | PN ---
DATE: 06/19/2017 REFERRING PHYSICIAN: Carisa Armstrong MD SUBJECTIVE: She is lying in the bed, head at 45 degrees. Night was unremarkable. No headache. No rhinitis. No nausea, no vomiting, no diarrhea. No leg pain, no leg swelling. PHYSICAL EXAMINATION: GENERAL: In no acute distress. VITAL SIGNS: Temperature is 98, heart rate 66, respiratory rate is 20, blood pressure 105/64, pulse ox 95% on room air. HEENT: Moist mucous membranes. Crowded airway. NECK: Short, thick neck. LUNGS: Fair airflow with few rhonchi. HEART: S1 and S2. ABDOMEN: Soft, nontender. No organomegaly. EXTREMITIES: Not much edema. NEUROLOGIC: Awake, alert, follows simple commands. MEDICATIONS: She is on Aldactone 25 mg twice a day, Altace 5 mg twice a day, Azactam 2 g IV q. 8 hours, Coreg 25 mg twice a day, potassium 20 mEq daily, Lasix 40 mg daily, magnesium oxide 400 mg twice a day, Motrin 600 mg q. 8 hours p.r.n., Pepcid 20 mg twice a day, prednisone 10 mg daily, and milrinone IV drip. LABORATORY DATA: Reviewed. No new lab is available since yesterday. Microbiology, repeat blood culture from 06/17/2017 is negative. Previous blood culture positive for Serratia. IMPRESSION AND PLAN: Line sepsis with Serratia bacteremia, cardiomyopathy, Primacor dependent, may have sleep apnea syndrome, history of Behcet's disease, steroids dependent. We will decrease her steroids to 7.5 mg daily. Continue Primacor. Case discussed with Dr. Armstrong. Also spoke to the nursing staff. Arrangement is being made to discharge her home by tomorrow on IV Azactam completing 21 days of therapy. After completing therapy, she will get a new PICC line. Thank you, and I will be follow with you. Cruz Teran MD
[2017-06-20] MEDS: Aztreonam 2 Gm in NS 100mL 100 ML IVPB SCH ×3 (06:41→22:21)
[2017-06-20] MEDS: Potassium Chloride 20 mEq ER Tab PO SCH (08:19)
[2017-06-20] MEDS: Magnesium Oxide 400 mg Tab UD PO SCH ×2 (10:26→18:00)
[2017-06-20] MEDS: Milrinone 20mg/100ml D5W 100 ML IV PRN (10:45)
[2017-06-20] MEDS: PrednisoLONE 15 mg/5 ml Oral Syrup (240 ml) PO SCH (12:34)
--- NOTE | 2017-06-20 15:30 | CP.PCM.PN ---
Subjective - Date & Time of Evaluation Date of Evaluation: 06/20/17 Time of Evaluation: 10:20 - Subjective Subjective: Comfortable, afebrile, no distress, no nausea. Objective - Vital Signs/Intake and Output Vital Signs (last 24 hours): Temp Pulse Resp BP Pulse Ox 98.1 F 84 20 112/63 97 06/20/17 00:01 06/20/17 02:00 06/20/17 00:01 06/20/17 00:01 06/19/17 06:00 Intake and Output: 06/20/17 06/20/17 06:59 18:59 Intake Total 100 Output Total 0 Balance 100 - Medications Medications: Current Medications Carvedilol (Coreg) 25 mg PO BID [facility] Last Admin: 06/19/17 18:36 Dose: Not Given Famotidine (Pepcid) 20 mg PO BID [facility] Last Admin: 06/19/17 18:36 Dose: 20 mg Furosemide (Lasix) 40 mg PO DAILY [facility] Last Admin: 06/19/17 09:00 Dose: 40 mg Milrinone Lactate/Dextrose (Primacor 20mg/100ml D5w) 100 mls @ 6.178 mls/hr IV .[id number] PRN; Protocol; 0.2 MCG/KG/MIN PRN Reason: TITRATE PER MD ORDER Last Admin: 06/19/17 22:45 Dose: 0.2 mcg/kg/min, 6.178 mls/hr Aztreonam (Azactam 2 Gm) 100 mls @ 100 mls/hr IVPB Q8 [facility] PRN Reason: Protocol Stop: 06/29/17 14:31 Last Admin: 06/20/17 06:41 Dose: 100 mls/hr Ibuprofen (Motrin Tab) 600 mg PO Q8H PRN PRN Reason: Fever >100.4 F Last Admin: 06/15/17 20:59 Dose: 600 mg Magnesium Oxide (Mag-Ox) 400 mg PO BID [facility] Last Admin: 06/19/17 18:35 Dose: 400 mg Potassium Chloride (K-Dur 20 Meq Er Tab) 20 meq PO BRK [facility] Last Admin: 06/20/17 08:19 Dose: 20 meq Prednisolone (Prednisolone Oral Soln) 7.5 mg PO DAILY [facility] Ramipril (Altace) 5 mg PO BID [facility] Last Admin: 06/19/17 18:36 Dose: Not Given Spironolactone (Aldactone) 25 mg PO BID [facility] Last Admin: 06/19/17 18:36 Dose: 25 mg - Labs Labs: 06/18/17 07:42 06/18/17 07:42 - Constitutional Appears: Non-toxic, No Acute Distress - Head Exam Head Exam: NORMAL INSPECTION - ENT Exam ENT Exam: Mucous Membranes Moist - Neck Exam Neck Exam: absent: Lymphadenopathy, Meningismus - Respiratory Exam Respiratory Exam: Decreased Breath Sounds - Cardiovascular Exam Cardiovascular Exam: +S1, +S2 - GI/Abdominal Exam GI & Abdominal Exam: Soft. 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
--- NOTE | 2017-06-20 22:00 | CP.PCM.PN ---
Subjective - Date & Time of Evaluation Date of Evaluation: 06/20/17 Time of Evaluation: 07:00 - Subjective Subjective: Comfortable, afebrile, no distress, no nausea.mid line is not working . will get picc line tomarrow., no n,v,d Objective - Vital Signs/Intake and Output Vital Signs (last 24 hours): Temp Pulse Resp BP Pulse Ox 98.1 F 80 20 104/69 97 06/20/17 17:33 06/20/17 18:04 06/20/17 17:33 06/20/17 18:05 06/19/17 06:00 Intake and Output: 06/20/17 06/21/17 18:59 06:59 Intake Total 1000 Balance 1000 - Medications Medications: Current Medications Carvedilol (Coreg) 25 mg PO BID [facility] Last Admin: 06/20/17 18:04 Dose: Not Given Famotidine (Pepcid) 20 mg PO BID [facility] Last Admin: 06/20/17 18:00 Dose: 20 mg Furosemide (Lasix) 40 mg PO DAILY [facility] Last Admin: 06/20/17 10:27 Dose: 40 mg Milrinone Lactate/Dextrose (Primacor 20mg/100ml D5w) 100 mls @ 6.178 mls/hr IV .[id number] PRN; Protocol; 0.2 MCG/KG/MIN PRN Reason: TITRATE PER MD ORDER Last Admin: 06/20/17 10:45 Dose: 0.2 mcg/kg/min, 6.178 mls/hr Aztreonam (Azactam 2 Gm) 100 mls @ 100 mls/hr IVPB Q8 [facility] PRN Reason: Protocol Stop: 06/29/17 14:31 Last Admin: 06/20/17 14:13 Dose: 100 mls/hr Ibuprofen (Motrin Tab) 600 mg PO Q8H PRN PRN Reason: Fever >100.4 F Last Admin: 06/15/17 20:59 Dose: 600 mg Magnesium Oxide (Mag-Ox) 400 mg PO BID [facility] Last Admin: 06/20/17 18:00 Dose: 400 mg Potassium Chloride (K-Dur 20 Meq Er Tab) 20 meq PO BRK [facility] Last Admin: 06/20/17 08:19 Dose: 20 meq Prednisolone (Prednisolone Oral Soln) 7.5 mg PO DAILY [facility] Last Admin: 06/20/17 12:34 Dose: 7.5 mg Ramipril (Altace) 5 mg PO BID [facility] Last Admin: 06/20/17 18:05 Dose: Not Given Spironolactone (Aldactone) 25 mg PO BID [facility] Last Admin: 06/20/17 18:05 Dose: 25 mg - Labs Labs: 06/18/17 07:42 06/18/17 07:42 - Constitutional Appears: Well - Head Exam Head Exam: ATRAUMATIC, NORMAL INSPECTION, NORMOCEPHALIC - Eye Exam Eye Exam: EOMI, Normal appearance, PERRL Pupil Exam: NORMAL ACCOMODATION, PERRL - ENT Exam ENT Exam: Mucous Membranes Moist, Normal Exam - Neck Exam Neck Exam: Full ROM, Normal Inspection. absent: Lymphadenopathy - Respiratory Exam Respiratory Exam: Clear to Ausculation Bilateral, NORMAL BREATHING PATTERN - Cardiovascular Exam Cardiovascular Exam: REGULAR RHYTHM, +S1, +S2. absent: Murmur - GI/Abdominal Exam GI & Abdominal Exam: Soft, Normal Bowel Sounds. absent: Tenderness - Rectal Exam Rectal Exam: NORMAL INSPECTION - Exam Exam: Circumcision, NORMAL INSPECTION External exam: NORMAL EXTERNAL EXAM Speculum exam: NORMAL SPECULUM EXAM Bimanual exam: NORMAL BIMANUAL EXAM - Extremities Exam Extremities Exam: Full ROM, Normal Capillary Refill, Normal Inspection. absent : Joint Swelling, Pedal Edema - Back Exam Back Exam: NORMAL INSPECTION - Neurological Exam Neurological Exam: Alert, Awake, CN II-XII Intact, Normal Gait, Oriented x3 - Psychiatric Exam Psychiatric exam: Normal Affect, Normal Mood - Skin Skin Exam: Dry, Intact, Normal Color, Warm Assessment and Plan - Assessment and Plan (Free Text) Assessment: Assessment Sepsis due to Serratia bacteremia probably PICC-line related S/P removal of the PICC line - blood cx are now clear since line removal history of Klebsiella bacteremia from UTI (2015) history of Methicillin-sensitive Staph aureus bacteremia, 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
--- NOTE | 2017-06-21 02:41 | PN ---
DATE: 06/20/2017 REFERRING PHYSICIAN: Carisa Armstrong MD. SUBJECTIVE: Patient is out of bed to reclining chair. Overnight events noted. Her midline PICC line was pulled out, peripheral IV was obtained where she is getting Primacor antibiotics, waiting for the PICC line. No nausea, no vomiting, no diarrhea. No leg pain or leg swelling. PHYSICAL EXAMINATION GENERAL: No acute distress. VITAL SIGNS: Temperature is 98, respiratory rate 77, respiratory rate is 20, blood pressure 104/96. HEENT: Moist mucous membrane. Crowded airway. Mallampati score is 4. NECK: Supple. No JVD. LUNGS: Fair airflow with rhonchi. HEART: S1 and S2. ABDOMEN: Soft, nontender, no organomegaly. EXTREMITIES: There is no edema. NEUROLOGICAL: Awake, alert, follows simple commands. MEDICATIONS: She is on Aldactone 25 mg twice a day, Altace 5 mg twice a day, Azactam 2 g IV q. 8 hours, Coreg 25 mg twice a day, potassium 20 mEq daily, Lasix 40 mg daily, magnesium oxide 400 mg twice a day, Motrin 600 mg q. 8 hours, Pepcid 20 mg daily, prednisone 7.5 mg daily, and Primacor IV drip. LABORATORY DATA: Reviewed. No new lab is available. Microbiology; repeat blood culture, there is no growth. Original blood culture has Serratia. IMPRESSION AND PLAN: Line sepsis with Serratia bacteremia, cardiomyopathy, Primacor dependent, may have sleep apnea syndrome, Behcet's disease, steroid dependent. Accidentally midline PICC line was pulled out. Peripheral line is working. For discharge planning, need a PICC line. Need antibiotics for a total of 21 days. Slowly, we will taper down the steroids. Will need rheumatology followup as an outpatient. Encourage to get a sleep study as an outpatient. Patient being followed by heart transplant team in [facility]. Thank you, and I will follow with you. Cruz Teran MD
[2017-06-21] MEDS: Milrinone 20mg/100ml D5W 100 ML IV PRN ×2 (03:47→16:35)
[2017-06-21] MEDS: Aztreonam 2 Gm in NS 100mL 100 ML IVPB SCH ×3 (06:30→21:52)
[2017-06-21] MEDS: Potassium Chloride 20 mEq ER Tab PO SCH (07:24)
[2017-06-21] MEDS: Magnesium Oxide 400 mg Tab UD PO SCH ×2 (09:15→17:47)
[2017-06-21] MEDS: PrednisoLONE 15 mg/5 ml Oral Syrup (240 ml) PO SCH (09:17)
[2017-06-21 12:57] LABS: INR 0.98 (0.93-1.08); PROTHROMBIN TIME 10.6 Seconds (9.9-11.8)
[2017-06-21] MEDS ORDERED: PrednisoLONE 15 mg/5 ml Oral Syrup (240 ml) PO SCH (13:05)
[2017-06-21] MEDS ORDERED: Lidocaine 2% Inj (20ml) ONE (15:29)
--- NOTE | 2017-06-21 15:40 | CP.PCM.PN ---
Subjective - Date & Time of Evaluation Date of Evaluation: 06/21/17 Time of Evaluation: 10:10 - Subjective Subjective: Comfortable in bed, no fevers, not in distress. Objective - Vital Signs/Intake and Output Vital Signs (last 24 hours): Temp Pulse Resp BP Pulse Ox 98.0 F 68 18 105/61 97 06/21/17 06:00 06/21/17 06:00 06/21/17 06:00 06/21/17 06:00 06/19/17 06:00 Intake and Output: 06/21/17 06/21/17 06:59 18:59 Intake Total 100 268 Output Total 0 Balance 100 268 - Medications Medications: Current Medications Carvedilol (Coreg) 25 mg PO BID [facility] Last Admin: 06/20/17 18:04 Dose: Not Given Famotidine (Pepcid) 20 mg PO BID [facility] Last Admin: 06/20/17 18:00 Dose: 20 mg Furosemide (Lasix) 40 mg PO DAILY [facility] Last Admin: 06/20/17 10:27 Dose: 40 mg Milrinone Lactate/Dextrose (Primacor 20mg/100ml D5w) 100 mls @ 6.178 mls/hr IV .[id number] PRN; Protocol; 0.2 MCG/KG/MIN PRN Reason: TITRATE PER MD ORDER Last Admin: 06/21/17 03:47 Dose: 0.2 mcg/kg/min, 6.178 mls/hr Aztreonam (Azactam 2 Gm) 100 mls @ 100 mls/hr IVPB Q8 [facility] PRN Reason: Protocol Stop: 06/29/17 14:31 Last Admin: 06/21/17 06:30 Dose: 100 mls/hr Ibuprofen (Motrin Tab) 600 mg PO Q8H PRN PRN Reason: Fever >100.4 F Last Admin: 06/15/17 20:59 Dose: 600 mg Magnesium Oxide (Mag-Ox) 400 mg PO BID [facility] Last Admin: 06/20/17 18:00 Dose: 400 mg Potassium Chloride (K-Dur 20 Meq Er Tab) 20 meq PO BRK [facility] Last Admin: 06/21/17 07:24 Dose: 20 meq Prednisolone (Prednisolone Oral Soln) 7.5 mg PO DAILY [facility] Last Admin: 06/20/17 12:34 Dose: 7.5 mg Ramipril (Altace) 5 mg PO BID [facility] Last Admin: 06/20/17 18:05 Dose: Not Given Spironolactone (Aldactone) 25 mg PO BID [facility] Last Admin: 06/20/17 18:05 Dose: 25 mg - Labs Labs: 06/18/17 07:42 06/18/17 07:42 - Constitutional Appears: Non-toxic, No Acute Distress - Head Exam Head Exam: NORMAL INSPECTION - ENT Exam ENT Exam: Mucous Membranes Moist - Neck Exam Neck Exam: absent: Lymphadenopathy, Meningismus - Respiratory Exam Respiratory Exam: Decreased Breath Sounds - Cardiovascular Exam Cardiovascular Exam: +S1, +S2 - GI/Abdominal Exam GI & Abdominal Exam: Soft. 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
--- NOTE | 2017-06-21 19:12 | PN ---
REFERRING PHYSICIAN: Dr. Armstrong. SUBJECTIVE: She is out of bed to chair, *------* unremarkable, scheduled to get PICC line. Tolerating Primacor well, on antibiotics. No nausea, no vomiting, no diarrhea. No leg pain or leg swelling. OBJECTIVE: GENERAL: No acute distress. VITAL SIGNS: Temperature is 98, heart rate is 89, respiratory rate is 20, blood pressure 97/72. HEENT: Moist mucous membrane. Crowded airway. Mallampati score is 4. NECK: Supple. No JVD. LUNGS: Fair airflow with rhonchi. HEART: S1 and S2. ABDOMEN: Soft, nontender, no organomegaly. EXTREMITIES: There is no edema. NEUROLOGICAL: Awake, alert, follows simple command. MEDICATIONS: She is on Aldactone 25 mg twice a day, Altace 5 mg twice a day, Azactam 2 g IV q.8 hours, Coreg 25 mg twice a day, potassium 20 mEq daily, Lasix 40 mg daily, magnesium oxide 400 mg twice a day, Motrin 600 mg q.8 hours p.r.n., Pepcid 20 mg twice a day, prednisone 7.5 mg daily, and IV Primacor. LABORATORY DATA: Reviewed. INR is 0.98. No other lab is available. IMPRESSION AND PLAN: Line sepsis with Serratia *------* bacteremia, cardiomyopathy, Primacor dependent, may have sleep apnea syndrome, obesity, Behcet's disease, steroid dependent. We will decrease prednisone to 5 mg daily. Spoke to the patient detail for prednisone and its side effect and benefit, agree with the tapered dose. Withdrawal symptom discussed. Awaiting for PICC line for discharge planning, will receive antibiotics, total 21 days as outpatient. Sleep apnea precaution. Thank you and I will follow with you. Cruz Teran MD
--- NOTE | 2017-06-21 20:14 | VASCULAR ---
PROCEDURE: Ultrasound and fluoroscopically placed right upper extremity PICC line. HISTORY: Sepsis. Milrinone infusion. Needs dual-lumen PICC line. PHYSICIAN(S): Phil Bolton MD. TECHNIQUE: The relative risks and indications of the procedure were explained to the patient and consent obtained. The patient was placed supine on the arteriogram table and the right arm prepped and draped in the usual sterile fashion. A tourniquet was applied to the right axilla. 1% Xylocaine was used to anesthetize the skin and soft tissues at the puncture site above the elbow. The right brachial vein was punctured under direct ultrasound guidance with a micropuncture set. A 0.018 guidewire was advanced centrally and used to measure the length to the SVC/RA junction. A 5 [place]oese dual lumen PICC line 40 cm long was advanced to the SVC/RA junction. The catheter was flushed and secured. The patient tolerated the procedure well. IMPRESSION: 1. Ultrasound and fluoroscopically placed right upper extremity PICC line. A 5 [place]oese dual lumen PICC line 40 cm long was advanced to the SVC/RA junction. 2. If long-term milrinone infusion is anticipated, the patient should be re-evaluated for port placement.
[2017-06-21 23:58] VITALS: TEMP 98.4; O2SAT 99
--- NOTE | 2017-06-22 01:04 | CP.PCM.PN ---
Subjective - Date & Time of Evaluation Date of Evaluation: 06/21/17 Time of Evaluation: 08:00 - Subjective Subjective: Comfortable in bed, no fevers, not in distress. want to go home , got picc line Objective - Vital Signs/Intake and Output Vital Signs (last 24 hours): Temp Pulse Resp BP Pulse Ox 98.4 F 70 18 93/57 L 99 06/21/17 23:54 06/21/17 23:54 06/21/17 23:54 06/21/17 23:54 06/21/17 23:54 Intake and Output: 06/21/17 06/22/17 18:59 06:59 Intake Total 368 Balance 368 - Medications Medications: Current Medications Carvedilol (Coreg) 25 mg PO BID [facility] Last Admin: 06/21/17 17:47 Dose: 25 mg Famotidine (Pepcid) 20 mg PO BID [facility] Last Admin: 06/21/17 17:47 Dose: 20 mg Furosemide (Lasix) 40 mg PO DAILY [facility] Last Admin: 06/21/17 09:15 Dose: 40 mg Milrinone Lactate/Dextrose (Primacor 20mg/100ml D5w) 100 mls @ 6.178 mls/hr IV .[id number] PRN; Protocol; 0.2 MCG/KG/MIN PRN Reason: TITRATE PER MD ORDER Last Admin: 06/21/17 16:35 Dose: 0.2 mcg/kg/min, 6.178 mls/hr Aztreonam (Azactam 2 Gm) 100 mls @ 100 mls/hr IVPB Q8 [facility] PRN Reason: Protocol Stop: 06/29/17 14:31 Last Admin: 06/21/17 21:52 Dose: 100 mls/hr Ibuprofen (Motrin Tab) 600 mg PO Q8H PRN PRN Reason: Fever >100.4 F Last Admin: 06/15/17 20:59 Dose: 600 mg Magnesium Oxide (Mag-Ox) 400 mg PO BID [facility] Last Admin: 06/21/17 17:47 Dose: 400 mg Potassium Chloride (K-Dur 20 Meq Er Tab) 20 meq PO BRK [facility] Last Admin: 06/21/17 07:24 Dose: 20 meq Prednisone (Prednisone Tab) 5 mg PO DAILY [facility] Ramipril (Altace) 5 mg PO BID [facility] Last Admin: 06/21/17 17:48 Dose: 5 mg Spironolactone (Aldactone) 25 mg PO BID [facility] Last Admin: 06/21/17 17:48 Dose: 25 mg - Labs Labs: 06/18/17 07:42 06/18/17 07:42 PT 10.6 Seconds (9.9-11.8) 06/21/17 12:40 INR 0.98 (0.93-1.08) 06/21/17 12:40 - Constitutional Appears: Well - Head Exam Head Exam: ATRAUMATIC, NORMAL INSPECTION, NORMOCEPHALIC - Eye Exam Eye Exam: EOMI, Normal appearance, PERRL Pupil Exam: NORMAL ACCOMODATION, PERRL - ENT Exam ENT Exam: Mucous Membranes Moist, Normal Exam - Neck Exam Neck Exam: Full ROM, Normal Inspection. absent: Lymphadenopathy - Respiratory Exam Respiratory Exam: Clear to Ausculation Bilateral, NORMAL BREATHING PATTERN - Cardiovascular Exam Cardiovascular Exam: REGULAR RHYTHM, +S1, +S2. absent: Murmur - GI/Abdominal Exam GI & Abdominal Exam: Soft, Normal Bowel Sounds. absent: Tenderness - Rectal Exam Rectal Exam: NORMAL INSPECTION - Exam Exam: Circumcision, NORMAL INSPECTION External exam: NORMAL EXTERNAL EXAM Speculum exam: NORMAL SPECULUM EXAM Bimanual exam: NORMAL BIMANUAL EXAM - Extremities Exam Extremities Exam: Full ROM, Normal Capillary Refill, Normal Inspection. 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
[2017-06-22] MEDS: Aztreonam 2 Gm in NS 100mL 100 ML IVPB SCH (05:58)
[2017-06-22 06:10] VITALS: RESP 20
[2017-06-22] MEDS: Potassium Chloride 20 mEq ER Tab PO SCH (08:06)
[2017-06-22] MEDS: Magnesium Oxide 400 mg Tab UD PO SCH (09:26)
[2017-06-22 09:31] VITALS: BP 114/80
[2017-06-22 12:01] VITALS: PULSE 82
--- NOTE | 2017-06-22 15:32 | CP.PCM.PN ---
Subjective - Date & Time of Evaluation Date of Evaluation: 06/22/17 Time of Evaluation: 09:40 - Subjective Subjective: Comfortable, afebrile, not in distress. Objective - Vital Signs/Intake and Output Vital Signs (last 24 hours): Temp Pulse Resp BP Pulse Ox 98.4 F 74 20 94/60 L 99 06/22/17 06:00 06/22/17 06:00 06/22/17 06:00 06/22/17 06:00 06/22/17 06:00 Intake and Output: 06/21/17 06/22/17 18:59 06:59 Intake Total 368 240 Balance 368 240 - Medications Medications: Current Medications Carvedilol (Coreg) 25 mg PO BID [facility] Last Admin: 06/21/17 17:47 Dose: 25 mg Famotidine (Pepcid) 20 mg PO BID [facility] Last Admin: 06/21/17 17:47 Dose: 20 mg Furosemide (Lasix) 40 mg PO DAILY [facility] Last Admin: 06/21/17 09:15 Dose: 40 mg Milrinone Lactate/Dextrose (Primacor 20mg/100ml D5w) 100 mls @ 6.178 mls/hr IV .[id number] PRN; Protocol; 0.2 MCG/KG/MIN PRN Reason: TITRATE PER MD ORDER Last Admin: 06/21/17 16:35 Dose: 0.2 mcg/kg/min, 6.178 mls/hr Aztreonam (Azactam 2 Gm) 100 mls @ 100 mls/hr IVPB Q8 [facility] PRN Reason: Protocol Stop: 06/29/17 14:31 Last Admin: 06/22/17 05:58 Dose: 100 mls/hr Ibuprofen (Motrin Tab) 600 mg PO Q8H PRN PRN Reason: Fever >100.4 F Last Admin: 06/15/17 20:59 Dose: 600 mg Magnesium Oxide (Mag-Ox) 400 mg PO BID [facility] Last Admin: 06/21/17 17:47 Dose: 400 mg Potassium Chloride (K-Dur 20 Meq Er Tab) 20 meq PO BRK [facility] Last Admin: 06/21/17 07:24 Dose: 20 meq Prednisone (Prednisone Tab) 5 mg PO DAILY [facility] Ramipril (Altace) 5 mg PO BID [facility] Last Admin: 06/21/17 17:48 Dose: 5 mg Spironolactone (Aldactone) 25 mg PO BID [facility] Last Admin: 06/21/17 17:48 Dose: 25 mg - Labs Labs: 06/18/17 07:42 06/18/17 07:42 PT 10.6 Seconds (9.9-11.8) 06/21/17 12:40 INR 0.98 (0.93-1.08) 06/21/17 12:40 - Constitutional Appears: Non-toxic, No Acute Distress - Head Exam Head Exam: NORMAL INSPECTION - ENT Exam ENT Exam: Mucous Membranes Moist - Neck Exam Neck Exam: absent: Meningismus - Respiratory Exam Respiratory Exam: Decreased Breath Sounds - Cardiovascular Exam Cardiovascular Exam: +S1, +S2 - GI/Abdominal Exam GI & Abdominal Exam: Soft. 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
== END 2017-06-22 14:08 | disposition home or self-care (01) | DRG 314 ==
LOC: ED 18:30 → ERH 21:28 → 2RNO 06-14 00:53
PROVIDERS: ADMIT Internal Medicine; ATTEND Internal Medicine
PROC: 02PYX3Z Removal of Infusion Device from Great Vessel, External Approach (ICD-10-PCS; 2017-06-15)
PROC: 02HV33Z Insertion of Infusion Device into Superior Vena Cava, Percutaneous Approach (ICD-10-PCS; principal; 2017-06-21)
PROC: B54MZZA Ultrasonography of Right Upper Extremity Veins, Guidance (ICD-10-PCS; 2017-06-21)
DX: T80.211A Bloodstream infection due to central venous catheter, initial encounter (principal); A41.53 Sepsis due to Serratia; R65.20 Severe sepsis without septic shock; I42.9 Cardiomyopathy, unspecified; M35.2 Behcet's disease; I11.0 Hypertensive heart disease with heart failure; I50.9 Heart failure, unspecified; E11.65 Type 2 diabetes mellitus with hyperglycemia; I25.10 Atherosclerotic heart disease of native coronary artery without angina pectoris; E66.9 Obesity, unspecified; F41.9 Anxiety disorder, unspecified; E87.6 Hypokalemia; D64.9 Anemia, unspecified; G47.33 Obstructive sleep apnea (adult) (pediatric); I27.2 Other secondary pulmonary hypertension; Y83.8 Other surgical procedures as the cause of abnormal reaction of the patient, or of later complication, without mention of misadventure at the time of the procedure; Z86.73 Personal history of transient ischemic attack (TIA), and cerebral infarction without residual deficits; Z95.810 Presence of automatic (implantable) cardiac defibrillator; Z79.899 Other long term (current) drug therapy; Z87.440 Personal history of urinary (tract) infections; Z79.52 Long term (current) use of systemic steroids; Z68.36 Body mass index [BMI] 36.0-36.9, adult

== ENCOUNTER 2017-07-16 23:39 | Inpatient (IN) | payer OTHER ==
[2017-07-16 23:40] VITALS: BMI 37.1
--- NOTE | 2017-07-17 00:12 | ED PDOC ---
Arrival/HPI - General Time Seen by Provider: 07/16/17 23:58 Historian: Patient - History of Present Illness Narrative History of Present Illness (Text): 07/17/17 00:12 Pauline Martinez is a 52 year old, whose past medical history includes hypertension, CHF on chronic milrinone drip via R-sided PICC line, and AICD placement, who presents to the ED complaining of shortness of breath and body aches tonight. Patient reports associated chills, chest discomfort, and nausea. Patient notes she was recently admitted to the hospital for similar symptoms 1 month prior. Patient reports some relief on oxygen in ER. Patient denies any fever, abdominal pain, vomiting, diarrhea, back pain, neck pain, headache, dizziness, or any other complaints. PMD: Dr. Armstrong Time/Duration: Other (tonight) Symptom Onset: Gradual Symptom Course: Unchanged Activities at Onset: Light Context: Home Past Medical History - Provider Review Nursing Documentation Reviewed: Yes - Infectious Disease Hx of Infectious Diseases: None - Tetanus Immunization Tetanus Immunization: Unknown - Cardiac Hx Cardiac Disorders: Yes Hx Cardiac Arrhythmia: Yes Hx Congestive Heart Failure: Yes Hx Hypertension: Yes Hx Internal Defibrillator: Yes - Pulmonary Hx Chronic Obstructive Pulmonary Disease (COPD): Yes Hx Pneumonia: Yes Hx Sleep Apnea: Yes - Neurological HX Cerebrovascular Accident: Yes - HEENT Hx HEENT Disorder: Yes (Wears glasses.) - Renal Hx Renal Disorder: No - Endocrine/Metabolic Hx Endocrine Disorders: No - Hematological/Oncological Hx Blood Disorders: Yes Hx Blood Transfusions: Yes Hx Blood Transfusion Reaction: No - Integumentary Hx Dermatological Disorder: No - Musculoskeletal/Rheumatological Hx Falls: No - Gastrointestinal Hx Gastrointestinal Disorders: Yes Hx Gastroesophageal Reflux: Yes HX Swallowing Problems: Yes - Genitourinary/Gynecological Hx Genitourinary Disorders: No - Psychiatric Hx Psychophysiologic Disorder: No Hx Substance Use: No - Surgical History Hx Cholecystectomy: Yes - Anesthesia Hx Anesthesia Reactions: No Hx Malignant Hyperthermia: No - Suicidal Assessment Feels Threatened In Home Enviroment: No Family/Social History - Physician Review Nursing Documentation Reviewed: Yes Family/Social History: Unknown Family HX Smoking Status: Never Smoked Hx Alcohol Use: No Hx Substance Use: No Hx Substance Use Treatment: No Allergies/Home Meds Allergies/Adverse Reactions: Allergies acetaminophen Allergy (Verified 03/26/17 11:44) ANGIOEDEMA cefepime Allergy (Verified 03/26/17 11:44) ANAPHYLAXIS Home Medications: Home Meds Medication Instructions Recorded Confirmed Furosemide [Lasix] 40 mg PO DAILY 10/17/15 07/17/17 Carvedilol [Coreg] 25 mg PO BID 03/29/16 07/17/17 Spironolactone [Aldactone] 25 mg PO BID 03/29/16 07/17/17 Milrinone [Primacor] 0.2 mcg IV CONT 03/30/16 07/17/17 Prednisolone [Millipred] 10 mg PO DAILY 06/11/16 07/17/17 Magnesium Oxide [Mag-Ox] 400 mg PO BID 01/01/17 07/17/17 Pantoprazole [Protonix EC Tab] 40 mg PO DAILY 01/01/17 07/17/17 Epinephrine HCl [Epipen 0.3 mg IM ONCE PRN 03/26/17 07/17/17 Auto-Injector] Review of Systems - Physician Review All systems were reviewed & negative as marked: Yes - Review of Systems Constitutional: Fevers, Other (+chills) Eyes: Normal ENT: Normal Respiratory: SOB Cardiovascular: Chest Pain Gastrointestinal: Nausea. absent: Diarrhea, Vomiting Genitourinary Female: Normal. absent: Dysuria, Frequency, Hematuria, Urine Output Changes Musculoskeletal: Normal. absent: Back Pain, Neck Pain Skin: Normal. absent: Rash Neurological: Normal. absent: Headache, Dizziness Endocrine: Normal Hemo/Lymphatic: Normal Psychiatric: Normal Physical Exam Vital Signs Reviewed: Yes Vital Signs Temp Pulse Resp BP Pulse Ox 07/17/17 04:19 88 16 116/74 99 07/17/17 04:00 98 F 85 20 109/63 96 07/17/17 01:30 88 16 115/76 100 07/17/17 00:00 98.9 F 87 20 140/91 H 100 Temperature: Afebrile Blood Pressure: Normal Pulse: Regular Respiratory Rate: Normal Appearance: Positive for: Well-Appearing, Non-Toxic, Comfortable Pain Distress: None Mental Status: Positive for: Alert and Oriented X 3 - Systems Exam Head: Present: Atraumatic, Normocephalic Pupils: Present: PERRL Extroacular Muscles: Present: EOMI Conjunctiva: Present: Normal Mouth: Present: Moist Mucous Membranes Neck: Present: Normal Range of Motion Respiratory/Chest: Present: Rhonchi. No: Respiratory Distress, Accessory Muscle Use Cardiovascular: Present: Regular Rate and Rhythm, Normal S1, S2. No: Murmurs Abdomen: Present: Normal Bowel Sounds. No: Tenderness, Distention, Peritoneal Signs Back: Present: Normal Inspection Upper Extremity: Present: Normal Inspection. No: Cyanosis, Edema Lower Extremity: Present: Normal Inspection. No: Edema Neurological: Present: GCS=15, CN II-XII Intact, Speech Normal Skin: Present: Warm, Dry, Normal Color. No: Rashes Psychiatric: Present: Alert, Oriented x 3, Normal Insight, Normal Concentration Medical Decision Making ED Course and Treatment: 07/17/17 00:12 Impression: 52 year old female c/o shortness of breath, chills, body aches, chest discomfort , and nausea. Plan: -- EKG -- CXR -- Labs, VBG, cardiac enzymes, BNP -- Reassess and disposition Progress Notes: Reviewed EKG, NSR at 94 bpm. Lateral T wave changes. Unchanged from 06/2017. 07/17/17 01:49 Reviewed radiology, CXR shows cardiomegaly. 07/17/17 01:[address] Armstrong, who is aware and agrees with plan. Accepts pt in to her service. Pt will go to Telemetry observation for CHF. Requests Dr. Beauchamp and Dr. Teran on consult. - Lab Interpretations Lab Results: 07/17/17 01:05 07/17/17 01:05 Lab Results 07/17/17 01:05: pO2 57 H, VBG pH 7.38, VBG pCO2 43.0, VBG HCO3 25.4, VBG Total CO2 26.7, VBG O2 Sat (Calc) 93.6 H, VBG Base Excess 0.0, VBG Potassium 3.9, Sodium 136.0, Chloride 106.0, Glucose 146 H, Lactate 1.3, FiO2 21.0, Venous Blood Potassium 3.9 07/17/17 01:05: WBC 10.6 D, RBC 3.86, Hgb 9.0 L, Hct 28.8 L, MCV 74.6 L, MCH 23.3 L, MCHC 31.3, RDW 18.6 H, Plt Count 220, MPV 10.1 07/17/17 01:05: Sodium 135, Chloride 104, Potassium 3.9, Carbon Dioxide 25, Anion Gap 10, BUN 16, Creatinine 0.8, Est GFR ( Amer) > 60, Est GFR (Non- Af Amer) > 60, Random Glucose 134 H, Calcium 8.6, Total Bilirubin 0.3, AST 29, ALT 28, Alkaline Phosphatase 77, Lactate Dehydrogenase 463, Total Creatine Kinase 21 L, Troponin I < 0.01 D, NT-Pro-B Natriuret Pep 639 H, Total Protein 6.5, Albumin 3.4, Globulin 3.1, Albumin/Globulin Ratio 1.1 07/17/17 01:05: PT 10.6, INR 0.98, APTT 26.7 I have reviewed the lab results: Yes - RAD Interpretation Radiology Orders: 07/17/17 00:14 CHEST PORTABLE [RAD] Stat Chamfering Machine Operator: ED Physician - EKG Interpretation Interpreted by ED Physician: Yes Type: 12 lead EKG - Medication Orders Current Medication Orders: Carvedilol (Coreg) 25 mg PO BID [facility] Last Admin: 07/17/17 18:25 Dose: 25 mg Famotidine (Pepcid) 20 mg PO DAILY [facility] Last Admin: 07/17/17 11:07 Dose: 20 mg Furosemide (Lasix) 40 mg PO DAILY [facility] Last Admin: 07/17/17 11:06 Dose: 40 mg Milrinone Lactate/Dextrose (Primacor 20mg/100ml D5w) 100 mls @ 6.26 mls/hr IV .[id number] PRN; Protocol; 0.2 MCG/KG/MIN PRN Reason: TITRATE PER MD ORDER Last Admin: 07/17/17 11:07 Dose: 0.2 mcg/kg/min, 6.26 mls/hr Vancomycin HCl (Vancomycin 1gm) 1 gm in 250 mls @ 167 mls/hr IVPB Q12H [facility] PRN Reason: Protocol Last Admin: 07/17/17 13:35 Dose: 167 mls/hr Azithromycin (Zithromax 500mg In Ns) 500 mg in 250 mls @ 167 mls/hr IVPB DAILY [facility] PRN Reason: Protocol Last Admin: 07/17/17 14:11 Dose: 167 mls/hr Aztreonam (Azactam 2 Gm) 100 mls @ 100 mls/hr IVPB Q8 [facility] PRN Reason: Protocol Stop: 07/24/17 22:01 Magnesium Oxide (Mag-Ox) 400 mg PO BID [facility] Last Admin: 07/17/17 18:25 Dose: 400 mg Pantoprazole Sodium (Protonix Ec Tab) 40 mg PO DAILY [facility] Last Admin: 07/17/17 11:06 Dose: 40 mg Prednisolone (Prednisolone Oral Soln) 10 mg PO DAILY [facility] Last Admin: 07/17/17 12:40 Dose: 10 mg Ramipril (Altace) 5 mg PO BID [facility] Last Admin: 07/17/17 18:23 Dose: Not Given Non-Admin Reason: Patient Refused Spironolactone (Aldactone) 25 mg PO BID [facility] Last Admin: 07/17/17 18:25 Dose: 25 mg Discontinued Medications Albuterol/Ipratropium (Duoneb 3 Mg/0.5 Mg (3 Ml) Ud) 3 ml IH ONCE STA Stop: 07/17/17 02:15 Last Admin: 07/17/17 04:04 Dose: 3 ml Albuterol/Ipratropium (Duoneb 3 Mg/0.5 Mg (3 Ml) Ud) 3 ml IH STAT STA Stop: 07/17/17 12:52 Furosemide (Lasix) 40 mg IVP STAT STA Stop: 07/17/17 12:47 Last Admin: 07/17/17 12:50 Dose: 40 mg Home Med (*Refrigerator Open) Confirm Administered Dose 1 unit XX .STK-MED ONE Stop: 07/17/17 06:48 Aztreonam (Azactam 2 Gm) 100 mls @ 100 mls/hr IVPB Q8 [facility] PRN Reason: Protocol Stop: 07/24/17 14:01 Last Admin: 07/17/17 14:11 Dose: 100 mls/hr Amikacin Sulfate 500 mg/ (Dextrose) 102 mls @ 204 mls/hr IVPB STAT STA PRN Reason: Protocol Stop: 07/17/17 14:58 Last Admin: 07/17/17 16:02 Dose: 204 mls/hr Ibuprofen (Motrin Tab) 400 mg PO Q6H ONE Stop: 07/17/17 12:33 Last Admin: 07/17/17 13:16 Dose: Ketorolac Tromethamine (Toradol) 30 mg IVP STAT STA Stop: 07/17/17 13:30 Last Admin: 07/17/17 14:02 Dose: 30 mg Re-Assess: VONDA Pain Assessment Document 07/17/17 15:02 [facility] (Rec: 07/17/17 18:22 [id number]) Pain Reassessment Is this a pain reassessment? Yes Sleep Is patient sleeping during reassessment? Yes Milrinone Lactate/Dextrose (Primacor 1mg/Ml Inj (10ml)) 1.24 mg IV .MGPER HOUR [facility] Non-Formulary Medication (Prednisolone [Millipred]) 10 mg PO DAILY [facility] - Scribe Statement The provider has reviewed the documentation as recorded by the Scribe Grecia Merrill All medical record entries made by the Salmaibarvind were at my direction and personally dictated by me. I have reviewed the chart and agree that the record accurately reflects my personal performance of the history, physical exam, medical decision making, and the department course for this patient. I have also personally directed, reviewed, and agree with the discharge instructions and disposition. Disposition/Present on Arrival - Present on Arrival Any Indicators Present on Arrival: No History of DVT/PE: No History of Uncontrolled Diabetes: No Urinary Catheter: No History of Decub. Ulcer: No History Surgical Site Infection Following: None - Disposition Have Diagnosis and Disposition been Completed?: Yes Diagnosis: Congestive heart failure (CHF) Disposition: HOSPITALIZED Disposition Time: 02:15 Patient Plan: Observation Patient Problems: Current Active Problems Problem Status Onset Congestive heart failure (CHF) Acute Condition: STABLE
[2017-07-17 01:20] LABS: VENOUS BLOOD PH 7.38 (7.32-7.43)
[2017-07-17 01:27] LABS: HEMATOCRIT 28.8 % (36.0-48.0); MEAN CELL VOLUME 74.6 fl (80.0-105.0); MEAN CORPUSCULAR HEMOGLOBIN 23.3 pg (25.0-35.0); MEAN CORPUSCULAR HGB CONC 31.3 g/dl (31.0-37.0); WHITE BLOOD COUNT 10.6 10^3/ul (4.5-11.0)
[2017-07-17 01:28] LABS: MEAN PLATELET VOLUME 10.1 fl (7.0-11.0); RED CELL DISTRIBUTION WIDTH 18.6 % (11.5-14.5)
[2017-07-17 01:30] LABS: ALB/GLOB RATIO 1.1 (1.1-1.8); ALKALINE PHOSPHATASE 77 U/L (38-126); ALT/SGPT 28 U/L (7-56); AST/SGOT 29 U/L (14-36); BILIRUBIN,TOTAL 0.3 mg/dL (0.2-1.3); BLOOD UREA NITROGEN 16 mg/dL (7-21); CALCIUM 8.6 mg/dL (8.4-10.5); CARBON DIOXIDE 25 mmol/L (21-33); CHLORIDE 104 mmol/L (98-107); GFR AFRICAN-AMERICAN > 60; GLUCOSE,RANDOM 134 mg/dL (70-110); POTASSIUM 3.9 mmol/L (3.6-5.0); SODIUM 135 mmol/L (132-148); TOTAL PROTEIN 6.5 g/dL (5.8-8.3)
[2017-07-17 01:33] LABS: INR 0.98 (0.93-1.08); PARTIAL THROMBOPLASTIN TIME 26.7 Seconds (23.7-30.8)
[2017-07-17 01:51] LABS: TROPONIN I < 0.01 ng/mL
[2017-07-17] MEDS ORDERED: Albuterol-Ipratrop 3 mg / 0.5 (3 ml) UD IH STA ×2 (02:14→12:51)
--- NOTE | 2017-07-17 07:54 | RAD ---
HISTORY: sob COMPARISON: 06/15/2017 FINDINGS: LUNGS: No active pulmonary disease. PLEURA: No significant pleural effusion identified, no pneumothorax apparent. CARDIOVASCULAR: AICD. Right PICC catheter. OSSEOUS STRUCTURES: No significant abnormalities. VISUALIZED UPPER ABDOMEN: Normal. OTHER FINDINGS: None. IMPRESSION: No active disease.
[2017-07-17] MEDS ORDERED: Primacor 1 mg/ml Inj (10 ml) IV SCH (09:15)
[2017-07-17] MEDS ORDERED: PREDNISOLONE PO SCH (10:00)
[2017-07-17] MEDS: Pantoprazole 40 mg EC Tab PO SCH (11:06)
[2017-07-17] MEDS: Magnesium Oxide 400 mg Tab UD PO SCH ×2 (11:07→18:25)
[2017-07-17] MEDS: Milrinone 20mg/100ml D5W 100 ML IV PRN ×2 (11:07→22:41)
--- NOTE | 2017-07-17 11:24 | CARD ---
APPROVED REPORT EKG Measurement Heart [id number] <Conclusion> Normal sinus rhythm Moderate voltage criteria for LVH, may be normal variant T wave abnormality, consider lateral ischemia Prolonged QT Abnormal ECG
[2017-07-17] MEDS: PrednisoLONE 15 mg/5 ml Oral Syrup (240 ml) PO SCH (12:40)
--- NOTE | 2017-07-17 13:18 | CP.PCM.PN ---
Subjective - Date & Time of Evaluation Date of Evaluation: 07/17/17 Time of Evaluation: 15:40 - Subjective Subjective: Luis Manuel Miller D.O. PGY-2 D.O. on Duty (D.O.O.D.) Received page from RN to evaluate patient. Patient was seen and examined at bedside. 52 year old female who presented with SOB and chills, has a PMH of CHF with previous episodes of pulmonary edema, milrinone dependent with EF of 23% and s/p AICD, pending evaluation at [facility] for possible heart transplant, currently complaining of worsening shortness of breath and chills. Patient is very anxious, wants to lay on her right side as she states she feels more comfortable this way. Per the nurse she has been very anxious and breathing more heavily. Patient presented for these same symptoms. Objective - Vital Signs/Intake and Output Vital Signs (last 24 hours): Temp Pulse Resp BP Pulse Ox 98 F 85 15 126/76 99 07/17/17 06:00 07/17/17 11:07 07/17/17 06:00 07/17/17 11:07 07/17/17 06:00 - Medications Medications: Current Medications Carvedilol (Coreg) 25 mg PO BID [facility] Last Admin: 07/17/17 11:07 Dose: 25 mg Famotidine (Pepcid) 20 mg PO DAILY [facility] Last Admin: 07/17/17 11:07 Dose: 20 mg Furosemide (Lasix) 40 mg PO DAILY [facility] Last Admin: 07/17/17 11:06 Dose: 40 mg Milrinone Lactate/Dextrose (Primacor 20mg/100ml D5w) 100 mls @ 6.26 mls/hr IV .[id number] PRN; Protocol; 0.2 MCG/KG/MIN PRN Reason: TITRATE PER MD ORDER Last Admin: 07/17/17 11:07 Dose: 0.2 mcg/kg/min, 6.26 mls/hr Aztreonam (Azactam 2 Gm) 100 mls @ 100 mls/hr IVPB Q8 [facility] PRN Reason: Protocol Stop: 07/24/17 14:01 Vancomycin HCl (Vancomycin 1gm) 1 gm in 250 mls @ 167 mls/hr IVPB Q12H [facility] PRN Reason: Protocol Magnesium Oxide (Mag-Ox) 400 mg PO BID [facility] Last Admin: 07/17/17 11:07 Dose: 400 mg Pantoprazole Sodium (Protonix Ec Tab) 40 mg PO DAILY [facility] Last Admin: 07/17/17 11:06 Dose: 40 mg Prednisolone (Prednisolone Oral Soln) 10 mg PO DAILY [facility] Last Admin: 07/17/17 12:40 Dose: 10 mg Ramipril (Altace) 5 mg PO BID [facility] Last Admin: 07/17/17 11:57 Dose: Not Given Spironolactone (Aldactone) 25 mg PO BID [facility] Last Admin: 07/17/17 11:07 Dose: 25 mg - Labs Labs: PT 10.6 Seconds (9.9-11.8) 07/17/17 01:05 INR 0.98 (0.93-1.08) 07/17/17 01:05 APTT 26.7 Seconds (23.7-30.8) 07/17/17 01:05 - Constitutional Appears: In Acute Distress, Unkempt, Other (obese, uncomfortable, well developed Thai female) - Head Exam Head Exam: ATRAUMATIC, NORMOCEPHALIC - Eye Exam Eye Exam: EOMI, PERRL. absent: Scleral icterus - ENT Exam ENT Exam: Mucous Membranes Moist Additional comments: actively coughing pink frothy sputum - Neck Exam Additional comments: soft, supple, no tracheal deviation - Respiratory Exam Respiratory Exam: Rales, Rhonchi, Respiratory Distress - Cardiovascular Exam Cardiovascular Exam: Tachycardia, +S1, +S2 Additional comments: L chest wall AICD - GI/Abdominal Exam GI & Abdominal Exam: Soft. absent: Distended, Tenderness - Extremities Exam Extremities Exam: Pedal Edema. absent: Calf Tenderness - Neurological Exam Neurological Exam: Alert, Awake, Oriented x3 - Skin Skin Exam: Dry, Warm Assessment and Plan - Assessment and Plan (Free Text) Assessment: 52 year old female currently complaining of worsening shortness of breath and chills, found to have tachycardia and frothy sputum Plan: HOB >30 Temp at bedside 103 with tachycardia 130s-140s Call placed to Dr Armstrong service STAT furosemide 40mg IVP ordered STAT CXR, EKG, CBC, CMP, prolactin, ABG w/ shock panel, legionella urine ag, strep urine ag CXR reviewed at bedside, appears to have worsening of pulmonary edema with new dense consolidation/infiltrate over RLL/RML Code sepsis called on these findings Fluid bolus NOT given due to decreased EF and current crackles Discussed with Dr. Armstrong Obtained ICU evaluation with Dr. Sutherland Placed patient on BIPAP 12/5/100% and pending ABG
[2017-07-17 13:35] LABS: BASO # 0.01 K/mm3 (0.0-2.0); BASO % 0.1 % (0.0-3.0); EOS # 0.1 (0.0-0.7); EOS % 1.2 % (1.5-5.0); GRAN # 6.47 (1.4-6.5); GRAN % 87.3 % (50.0-68.0); HEMATOCRIT 33.2 % (36.0-48.0); LYMPH # 0.8 (1.2-3.4); LYMPH % 10.9 % (22.0-35.0); MEAN CELL VOLUME 74.6 fl (80.0-105.0); MEAN CORPUSCULAR HEMOGLOBIN 23.6 pg (25.0-35.0); MEAN CORPUSCULAR HGB CONC 31.6 g/dl (31.0-37.0); MEAN PLATELET VOLUME 9.6 fl (7.0-11.0); MONO % 0.5 % (1.0-6.0); RED CELL DISTRIBUTION WIDTH 17.7 % (11.5-14.5); WHITE BLOOD COUNT 7.4 10^3/ul (4.5-11.0)
[2017-07-17] MEDS: Vancomycin 1gm in NS 250ml 1 GM/250 ML BAG IVPB SCH (13:35)
[2017-07-17 13:42] LABS: ALB/GLOB RATIO 1.1 (1.1-1.8); ALKALINE PHOSPHATASE 117 U/L (38-126); ALT/SGPT 51 U/L (7-56); AST/SGOT 73 U/L (14-36); BLOOD UREA NITROGEN 12 mg/dL (7-21); CALCIUM 8.8 mg/dL (8.4-10.5); CARBON DIOXIDE 22 mmol/L (21-33); CHLORIDE 105 mmol/L (98-107); GFR AFRICAN-AMERICAN > 60; GLUCOSE,RANDOM 100 mg/dL (70-110); POTASSIUM 4.1 mmol/L (3.6-5.0); SODIUM 137 mmol/L (132-148); TOTAL PROTEIN 7.3 g/dL (5.8-8.3)
--- NOTE | 2017-07-17 13:53 | RAD ---
HISTORY: SOB COMPARISON: Earlier same day FINDINGS: LUNGS: There is a new infiltrate throughout the right lung consistent with pneumonia. The left lung remains clear PLEURA: No significant pleural effusion identified, no pneumothorax apparent. CARDIOVASCULAR: Normal. OSSEOUS STRUCTURES: No significant abnormalities. VISUALIZED UPPER ABDOMEN: Normal. OTHER FINDINGS: None. IMPRESSION: There is a new infiltrate throughout the right lung consistent with pneumonia. The left lung remains clear
[2017-07-17] MEDS ORDERED: Aztreonam 2 Gm in NS 100mL 100 ML IVPB SCH (14:00)
--- NOTE | 2017-07-17 14:00 | CP.PCM.PN ---
Subjective - Date & Time of Evaluation Date of Evaluation: 07/17/17 Time of Evaluation: 13:55 - Subjective Subjective: 52 year old female with Class D CHF with inotrope dependent non ischemic cardiomyopathy. Presents with severe shortness of breath, fever and cough. Objective - Vital Signs/Intake and Output Vital Signs (last 24 hours): Temp Pulse Resp BP Pulse Ox 103.1 F H 85 15 159/81 H 99 07/17/17 13:16 07/17/17 11:07 07/17/17 06:00 07/17/17 12:50 07/17/17 06:00 - Medications Medications: Current Medications Carvedilol (Coreg) 25 mg PO BID [facility] Last Admin: 07/17/17 11:07 Dose: 25 mg Famotidine (Pepcid) 20 mg PO DAILY [facility] Last Admin: 07/17/17 11:07 Dose: 20 mg Furosemide (Lasix) 40 mg PO DAILY [facility] Last Admin: 07/17/17 11:06 Dose: 40 mg Milrinone Lactate/Dextrose (Primacor 20mg/100ml D5w) 100 mls @ 6.26 mls/hr IV .[id number] PRN; Protocol; 0.2 MCG/KG/MIN PRN Reason: TITRATE PER MD ORDER Last Admin: 07/17/17 11:07 Dose: 0.2 mcg/kg/min, 6.26 mls/hr Aztreonam (Azactam 2 Gm) 100 mls @ 100 mls/hr IVPB Q8 [facility] PRN Reason: Protocol Stop: 07/24/17 14:01 Vancomycin HCl (Vancomycin 1gm) 1 gm in 250 mls @ 167 mls/hr IVPB Q12H [facility] PRN Reason: Protocol Last Admin: 07/17/17 13:35 Dose: 167 mls/hr Azithromycin (Zithromax 500mg In Ns) 500 mg in 250 mls @ 167 mls/hr IVPB DAILY [facility] PRN Reason: Protocol Magnesium Oxide (Mag-Ox) 400 mg PO BID [facility] Last Admin: 07/17/17 11:07 Dose: 400 mg Pantoprazole Sodium (Protonix Ec Tab) 40 mg PO DAILY [facility] Last Admin: 07/17/17 11:06 Dose: 40 mg Prednisolone (Prednisolone Oral Soln) 10 mg PO DAILY [facility] Last Admin: 07/17/17 12:40 Dose: 10 mg Ramipril (Altace) 5 mg PO BID [facility] Last Admin: 07/17/17 11:57 Dose: Not Given Spironolactone (Aldactone) 25 mg PO BID [facility] Last Admin: 07/17/17 11:07 Dose: 25 mg - Labs Labs: 07/17/17 13:25 07/17/17 13:25 PT 10.6 Seconds (9.9-11.8) 07/17/17 01:05 INR 0.98 (0.93-1.08) 07/17/17 01:05 APTT 26.7 Seconds (23.7-30.8) 07/17/17 01:05 - Constitutional Appears: Toxic - Head Exam Head Exam: ATRAUMATIC, NORMAL INSPECTION, NORMOCEPHALIC - ENT Exam ENT Exam: Mucous Membranes Dry - Respiratory Exam Respiratory Exam: Rales, Wheezes, Respiratory Distress - Cardiovascular Exam Cardiovascular Exam: Tachycardia, JVD, +S1, +S2 Additional comments: AICD - GI/Abdominal Exam GI & Abdominal Exam: Normal Bowel Sounds. absent: Organomegaly Assessment and Plan - Assessment and Plan (Free Text) Assessment: CXR images viewed by me: Right lower lobe infiltrate EKG images viewed by me: Sinus tachycardia A/P: 52 year old female with end stage CHF, ACC Class D continue inotropes Health care associated pneumonia with right middle lobe infiltrate, severe sepsis Respiritory failure - bipap, will strong likely etienne of intubation. Sepsis - ABX, supportive care Obtain records from [facility]
[2017-07-17 14:10] LABS: ARTERIAL BLOOD GAS PH 7.47 (7.35-7.45)
[2017-07-17] MEDS: Azithromycin 500MG/NS 250ml 500 MG/250 ML BAG IVPB SCH (14:11)
--- NOTE | 2017-07-17 14:26 | PCM.SEPTIC ---
Sepsis Progress Note - Reassessment Type Date of Evaluation: 07/17/17 Time of Evaluation: 12:40 Reassessment Type: Non-invasive reassessment - Non Invasive Reassessment Were the most recent vital sign reviewed: Yes Vital Sign (Latest): Temp Pulse Resp BP Pulse Ox 103.1 F H 127 H 15 159/81 H 99 07/17/17 13:16 07/17/17 13:56 07/17/17 06:00 07/17/17 12:50 07/17/17 06:00 Cardiovascular: Yes: Tachycardia Respiratory: Yes: Rales, Rhonchi Capillary Refill: Normal (Less than 2 sec) Skin: Warm, Dry
--- NOTE | 2017-07-17 14:27 | CP.PCM.CON ---
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 She denies cough or colds, no nausea or vomiting, no headache or dizziness, no chest pain, no pain at the right arm PICC line, but felt chills after the PICC was used these past 2 days. She is now in the ICU for closer observation and monitoring. Infectious diseases consult is requested to further evaluate and manage. Review of Systems - Review of Systems All systems: reviewed and no additional remarkable complaints except (as per HPI ) Past Patient History - Infectious Disease Hx of Infectious Diseases: None - Tetanus Immunizations Tetanus Immunization: Unknown - Past Social History Smoking Status: Never Smoked - CARDIAC Hx Cardiac Disorders: Yes Hx Cardia Arrhythmia: Yes Hx Congestive Heart Failure: Yes Hx Hypertension: Yes Hx Internal Defibrillator: Yes - PULMONARY Hx Chronic Obstructive Pulmonary Disease (COPD): Yes Hx Pneumonia: Yes Hx Sleep Apnea: Yes - NEUROLOGICAL HX Cerebrovascular Accident: Yes - HEENT Hx HEENT Problems: Yes (Wears glasses.) - RENAL Hx Chronic Kidney Disease: No - ENDOCRINE/METABOLIC Hx Endocrine Disorders: No - HEMATOLOGICAL/ONCOLOGICAL Hx Blood Disorders: Yes - INTEGUMENTARY Hx Dermatological Problems: No - MUSCULOSKELETAL/RHEUMATOLOGICAL Hx Falls: No - GASTROINTESTINAL Hx Gastrointestinal Disorders: Yes Hx Gastroesophageal Reflux: Yes HX Swallowing Problems: Yes - GENITOURINARY/GYNECOLOGICAL Hx Genitourinary Disorders: No - PSYCHIATRIC Hx Psychophysiologic Disorder: No - SURGICAL HISTORY Hx Cholecystectomy: Yes - ANESTHESIA Hx Anesthesia Reactions: No Hx Malignant Hyperthermia: No Meds Allergies/Adverse Reactions: Allergies Allergy/AdvReac Type Severity Reaction Status Date / Time acetaminophen Allergy ANGIOEDEMA Verified 03/26/17 11:44 cefepime Allergy ANAPHYLAXIS Verified 03/26/17 11:44 - Medications Medications: Current Medications Carvedilol (Coreg) 25 mg PO BID [facility] Last Admin: 07/17/17 11:07 Dose: 25 mg Famotidine (Pepcid) 20 mg PO DAILY [facility] Last Admin: 07/17/17 11:07 Dose: 20 mg Furosemide (Lasix) 40 mg PO DAILY [facility] Last Admin: 07/17/17 11:06 Dose: 40 mg Milrinone Lactate/Dextrose (Primacor 20mg/100ml D5w) 100 mls @ 6.26 mls/hr IV .[id number] PRN; Protocol; 0.2 MCG/KG/MIN PRN Reason: TITRATE PER MD ORDER Last Admin: 07/17/17 11:07 Dose: 0.2 mcg/kg/min, 6.26 mls/hr Ibuprofen (Motrin Tab) 400 mg PO Q6H ONE Stop: 07/17/17 12:33 Magnesium Oxide (Mag-Ox) 400 mg PO BID [facility] Last Admin: 07/17/17 11:07 Dose: 400 mg Pantoprazole Sodium (Protonix Ec Tab) 40 mg PO DAILY [facility] Last Admin: 07/17/17 11:06 Dose: 40 mg Prednisolone (Prednisolone Oral Soln) 10 mg PO DAILY [facility] Ramipril (Altace) 5 mg PO BID [facility] Last Admin: 07/17/17 11:57 Dose: Not Given Spironolactone (Aldactone) 25 mg PO BID [facility] Last Admin: 07/17/17 11:07 Dose: 25 mg Physical Exam - Constitutional Appears: Other (has chills, feels weak) - Head Exam Head Exam: NORMAL INSPECTION - Neck Exam Neck exam: Negative for: Meningismus - Respiratory Exam Respiratory Exam: Decreased Breath Sounds - Cardiovascular Exam Cardiovascular Exam: +S1, +S2 - GI/Abdominal Exam GI & Abdominal Exam: Soft. absent: Tenderness - Extremities Exam Additional comments: right arm PICC line site clean Results - Vital Signs Recent Vital Signs: Last Vital Signs Temp 98 F 07/17/17 06:00 Pulse 85 07/17/17 11:07 Resp 15 07/17/17 06:00 BP 126/76 07/17/17 11:07 Pulse Ox 99 07/17/17 06:00 - Labs Result Diagrams: 07/17/17 13:25 07/17/17 13:25 Assessment & Plan - Assessment and Plan (Free Text) Plan: Assessment systemic Inflammatory Response Syndrome, R/O sepsis R/O PICC-related infection, R/O endocarditis with AICD lead infection Sepsis due to Serratia bacteremia probably PICC-line related S/P removal of the PICC line - blood cx are now clear since line removal history of Klebsiella bacteremia from UTI (2015) history of Methicillin-sensitive Staph aureus bacteremia, 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
[2017-07-17] MEDS ORDERED: Amikacin 500 MG in Dextrose 5% In Water 100 ML IVPB STA (14:29)
--- NOTE | 2017-07-17 15:32 | CP.PCM.CON ---
History of Present Illness - History of Present Illness History of Present Illness: Patient is 52yo female with PMHx of NICM, end stage CHF EF 23%, s/p AICD placement, on chronic milrinone drip with R PICC, recent admission for Zulay Bacteremia 2/2 PICC line infection s/p removal, hx of Klebsiella bacteremia, MRSA bacteremia, CAD, DM, a/w chills and SOB to telemetry. This afternoon code sepsis called for tachypnea, tachycardia 120s sinus, Fever 103.1, given Lasix 40mg IV x 1, Ibuprofen x 1, and Toradol, subsequent temp 100.1. Currently on BIPAP, AAOx3, NAD, comfortable on BIPAP 10/5/40%, sat 100%. Reports SOB is significantly since being put on BIPAP. PMHx: as above PSHx: as above Allergies: Tylenol, Cefepime Meds: as per EMR FHx: NC ROS: SOB, Fever, otherwise negative Review of Systems - Review of Systems Review of Systems: as per hpi Past Patient History - Infectious Disease Hx of Infectious Diseases: None - Tetanus Immunizations Tetanus Immunization: Unknown - Past Social History Smoking Status: Never Smoked - CARDIAC Hx Cardiac Disorders: Yes Hx Cardia Arrhythmia: Yes Hx Congestive Heart Failure: Yes Hx Hypertension: Yes Hx Internal Defibrillator: Yes - PULMONARY Hx Chronic Obstructive Pulmonary Disease (COPD): Yes Hx Pneumonia: Yes Hx Sleep Apnea: Yes - NEUROLOGICAL HX Cerebrovascular Accident: Yes - HEENT Hx HEENT Problems: Yes (Wears glasses.) - RENAL Hx Chronic Kidney Disease: No - ENDOCRINE/METABOLIC Hx Endocrine Disorders: No - HEMATOLOGICAL/ONCOLOGICAL Hx Blood Disorders: Yes - INTEGUMENTARY Hx Dermatological Problems: No - MUSCULOSKELETAL/RHEUMATOLOGICAL Hx Falls: No - GASTROINTESTINAL Hx Gastrointestinal Disorders: Yes Hx Gastroesophageal Reflux: Yes HX Swallowing Problems: Yes - GENITOURINARY/GYNECOLOGICAL Hx Genitourinary Disorders: No - PSYCHIATRIC Hx Psychophysiologic Disorder: No - SURGICAL HISTORY Hx Cholecystectomy: Yes - ANESTHESIA Hx Anesthesia Reactions: No Hx Malignant Hyperthermia: No Meds Allergies/Adverse Reactions: Allergies Allergy/AdvReac Type Severity Reaction Status Date / Time acetaminophen Allergy ANGIOEDEMA Verified 03/26/17 11:44 cefepime Allergy ANAPHYLAXIS Verified 03/26/17 11:44 - Medications Medications: Current Medications Carvedilol (Coreg) 25 mg PO BID [facility] Last Admin: 07/17/17 11:07 Dose: 25 mg Famotidine (Pepcid) 20 mg PO DAILY [facility] Last Admin: 07/17/17 11:07 Dose: 20 mg Furosemide (Lasix) 40 mg PO DAILY [facility] Last Admin: 07/17/17 11:06 Dose: 40 mg Milrinone Lactate/Dextrose (Primacor 20mg/100ml D5w) 100 mls @ 6.26 mls/hr IV .[id number] PRN; Protocol; 0.2 MCG/KG/MIN PRN Reason: TITRATE PER MD ORDER Last Admin: 07/17/17 11:07 Dose: 0.2 mcg/kg/min, 6.26 mls/hr Vancomycin HCl (Vancomycin 1gm) 1 gm in 250 mls @ 167 mls/hr IVPB Q12H [facility] PRN Reason: Protocol Last Admin: 07/17/17 13:35 Dose: 167 mls/hr Azithromycin (Zithromax 500mg In Ns) 500 mg in 250 mls @ 167 mls/hr IVPB DAILY [facility] PRN Reason: Protocol Last Admin: 07/17/17 14:11 Dose: 167 mls/hr Magnesium Oxide (Mag-Ox) 400 mg PO BID [facility] Last Admin: 07/17/17 11:07 Dose: 400 mg Pantoprazole Sodium (Protonix Ec Tab) 40 mg PO DAILY [facility] Last Admin: 07/17/17 11:06 Dose: 40 mg Prednisolone (Prednisolone Oral Soln) 10 mg PO DAILY [facility] Last Admin: 07/17/17 12:40 Dose: 10 mg Ramipril (Altace) 5 mg PO BID [facility] Last Admin: 07/17/17 11:57 Dose: Not Given Spironolactone (Aldactone) 25 mg PO BID [facility] Last Admin: 07/17/17 11:07 Dose: 25 mg Physical Exam - Constitutional Appears: Well, Non-toxic, No Acute Distress - Head Exam Head Exam: ATRAUMATIC - Eye Exam Eye Exam: Normal appearance - ENT Exam ENT Exam: Mucous Membranes Moist - Neck Exam Neck exam: Positive for: Full Rom - Respiratory Exam Respiratory Exam: NORMAL BREATHING PATTERN Additional comments: Crackles at right base, left lung clear - Cardiovascular Exam Cardiovascular Exam: Tachycardia, +S1, +S2 - GI/Abdominal Exam GI & Abdominal Exam: Normal Bowel Sounds, Soft - Extremities Exam Extremities exam: Positive for: normal inspection, pedal edema Results - Vital Signs Recent Vital Signs: Last Vital Signs Temp 103.1 F H 07/17/17 13:16 Pulse 119 H 07/17/17 15:00 Resp 42 H 07/17/17 15:00 BP 94/54 L 07/17/17 15:00 Pulse Ox 99 07/17/17 15:00 - Labs Result Diagrams: 07/17/17 13:25 07/17/17 13:25 Labs: Laboratory Results - last 24 hr 07/17/17 07/17/17 07/17/17 13:25 13:25 14:00 WBC 7.4 D RBC 4.45 Hgb 10.5 L Hct 33.2 L MCV 74.6 L MCH 23.6 L MCHC 31.6 RDW 17.7 H Plt Count 219 MPV 9.6 Gran % 87.3 H Lymph % (Auto) 10.9 L Cannon % (Auto) 0.5 L Eos % (Auto) 1.2 L Baso % (Auto) 0.1 Gran # 6.47 Lymph # 0.8 L Cannon # 0.0 L Eos # 0.1 Baso # 0.01 pCO2 33 L pO2 468.0 H HCO3 24.0 ABG pH 7.47 H ABG Total CO2 25.0 ABG O2 Saturation 100.2 H ABG Base Excess 0.6 ABG Potassium 3.6 Glucose 108 H Lactate 0.8 FiO2 100.0 Sodium 137 135.0 Potassium 4.1 Chloride 105 107.0 Carbon Dioxide 22 Anion Gap 14 BUN 12 Creatinine 0.8 Est GFR ( Amer) > 60 Est GFR (Non-Af Amer) > 60 Random Glucose 100 Calcium 8.8 Total Bilirubin 1.0 AST 73 H D ALT 51 Alkaline Phosphatase 117 Total Protein 7.3 Albumin 3.8 Globulin 3.5 Albumin/Globulin Ratio 1.1 Arterial Blood Potassium 3.6 - Imaging and Cardiology Chest x-ray Status: Image reviewed by me, Report reviewed by me Assessment & Plan - Assessment and Plan (Free Text) Assessment: 52yo female with Fever, severe sepsis Severe Sepsis PNA Tachycardia, Sinus CHF, on chronic Milrinone HTN - curretly febrile, 100.1, but temp coming down from 103.1, HD stable, Tachy 120s, sinus, comfortable on BIPAP 10/5/40%, sat 99% - on exam has crackles at right base with diminshed breath sounds - interval CXR today with worsening pulm vasc congestion, and new right sided infiltrate - ABG with good oxygen exchange, no evidence of hypercapnia Recommend: - cont with BIPAP for now, titrate off to NC, 2LPM - would hold further diuresis for now, as patient is likely with severe sepsis - broad spectrum abx as per ID - obtain ECHO, r/o IE - RUE U/S, rule out DVT - source of infection likely PNA, would follow up Blood cultures, if positive, DC PICC - cont with Milrinone drip,follow up cardiology - HH stable, monitor HH - monitor Cr - keep NPO for now - FS control goal FS 140-180 - DVT ppx - GI ppx Critical Care time: 40 minutes
--- NOTE | 2017-07-17 16:14 | CARD ---
APPROVED REPORT EKG Measurement Heart [id number] <Conclusion> Sinus tachycardia Possible Left atrial enlargement Left ventricular hypertrophy with repolarization abnormality Abnormal ECG
--- NOTE | 2017-07-17 19:08 | PCM.SEPTIC ---
Sepsis Progress Note - Reassessment Type Date of Evaluation: 07/17/17 Time of Evaluation: 19:07 Reassessment Type: Non-invasive reassessment - Non Invasive Reassessment Were the most recent vital sign reviewed: Yes Vital Sign (Latest): Temp Pulse Resp BP Pulse Ox 101.1 F H 100 H 42 H 98/57 L 99 07/17/17 16:06 07/17/17 18:25 07/17/17 15:00 07/17/17 18:25 07/17/17 15:00 Cardiovascular: Yes: Regular Rate, Rhythm Respiratory: Yes: Rales, Rhonchi Capillary Refill: Normal (Less than 2 sec) Skin: Warm, Dry
--- NOTE | 2017-07-17 20:20 | US ---
PROCEDURE: Right lower extremity venous US HISTORY: Leg pain and swelling. Evaluate for DVT. PHYSICIAN(S): Phil Bolton M.D. TECHNIQUE: Duplex sonography and color-flow Doppler with graded compression were used to evaluate the deep venous system of the right lower extremity. FINDINGS: The visualized deep venous system of the right lower extremity is sonographically normal and compressible. Normal waveforms and augmentation are seen. There is no sonographic evidence for deep venous thrombosis in the visualized segments of the right lower extremity. IMPRESSION: 1. No sonographic evidence for deep venous thrombosis in the visualized segments of the right lower extremity.
[2017-07-17] MEDS: Aztreonam 2 Gm in NS 100mL 100 ML IVPB SCH (22:23)
[2017-07-18 02:26] VITALS: RESP 20
[2017-07-18] MEDS: Vancomycin 1gm in NS 250ml 1 GM/250 ML BAG IVPB SCH ×2 (02:50→12:31)
--- NOTE | 2017-07-18 04:30 | CON ---
PULMONARY CRITICAL CARE CONSULT DATE: 07/17/2017 REFERRING PHYSICIAN: Carisa Armstrong MD REASON FOR CONSULT: Cardiomyopathy, sleep apnea syndrome, and short of breath. HISTORY OF PRESENT ILLNESS: This is a 52 years old female with known history of severe cardiomyopathy, LV ejection fraction about 23%, and has history of AICD, on milrinone drip. She is in heart transplant list in [facility] and has recurrent PICC line infection. Again, at this time, she comes in with tachypnea, tachycardia, and fever up to 103. Also not feeling well, so she was given Tylenol and also needed noninvasive ventilation, presently admitted to intensive care unit, receiving antibodies, done well with noninvasive ventilation, and presently on nasal cannula. She also has Behcet's disease, steroids dependent, last time it was advised to decrease down to 5 mg, but she continued to use 10 mg for now. There is no significant sputum production. No hemoptysis. No hematemesis. No hematuria. No diarrhea reported. PAST MEDICAL HISTORY: Cardiomyopathy, suspected obstructive sleep apnea syndrome, Behcet's disease, steroids dependent, and recurrent lung infection. SOCIAL HISTORY: Nonsmoker and nondrinker. FAMILY HISTORY: No significant cardiopulmonary disease reported. ALLERGIES: TYLENOL AND CEFEPIME. MEDICATIONS: She is on Aldactone 25 mg twice a day, Altace 5 mg twice a day, Azactam 2 g q.8 hours, Coreg 25 mg twice a day, Lasix 40 mg daily, magnesium oxide mg twice a day, Pepcid 20 mg daily, prednisone 10 mg daily, Primacor drip, Protonix 40 mg daily, vancomycin 1 g q.12 hours, Zithromax 500 mg daily, and Zofran p.r.n. basis. REVIEW OF SYSTEMS: No headache. No rhinitis. No cough. Has short of breath. No chest pain or tachypnea. No nausea. No vomiting. No diarrhea. No leg pain or leg swelling. PHYSICAL EXAMINATION: GENERAL: Lying in the bed, in no acute distress. VITAL SIGNS: Temperature is 98, heart rate is 84, respiratory rate is 20, blood pressure is 98/58, and pulse ox 96% on 3 L nasal cannula. HEENT: Moist mucous membranes. Crowded airway. Mallampati score is 4. NECK: Supple. No JVD. LUNGS: Has a fair airflow with few rhonchi. HEART: S1 and S2. ABDOMEN: Soft and nontender. No organomegaly. EXTREMITIES: No edema. NEUROLOGIC: Awake, alert, and follows simple commands. PICC line site looks okay. LABORATORY DATA: Shows hemoglobin 10.5, hematocrit 33.2, WBC 7.4, and platelets 219. INR 0.98. PTT 27. ABG show pH of 7.47, pCO2 of 33, O2 of 468 that was noninvasive ventilation, and he is on 100% oxygen. Sodium 137, potassium 4.1, chloride 105, bicarbonate 22, BUN 12, creatinine 0.8, glucose is 100, calcium 8.8, AST 73, ALT 51, alkaline phosphatase is 117, albumin 3.8, and prolactin is 139. Venous Doppler of right lower extremity is negative for DVT. Chest x-ray shows there is a new infiltrate throughout the right lung consistent with pneumonia and the left lung remains clear. IMPRESSION AND PLAN: Septic shock, severe cardiomyopathy, may have obstructive sleep apnea syndrome, may have line sepsis or pneumonia, Behcet's disease, and steroids dependent. I agree with the present management. Continue antibiotics, healthcare-associated organism. BiPAP while sleeping or any respiratory distress. Gastric prophylaxis. SCD to lower extremities. Followup labs in the morning and we will follow with you. Cruz Teran MD
[2017-07-18] MEDS: Aztreonam 2 Gm in NS 100mL 100 ML IVPB SCH ×3 (05:26→22:51)
[2017-07-18 06:32] LABS: MEAN CELL VOLUME 74.5 fl (80.0-105.0); MEAN CORPUSCULAR HEMOGLOBIN 23.7 pg (25.0-35.0); MEAN CORPUSCULAR HGB CONC 31.8 g/dl (31.0-37.0); MEAN PLATELET VOLUME 9.3 fl (7.0-11.0); RED CELL DISTRIBUTION WIDTH 18.2 % (11.5-14.5)
[2017-07-18 06:48] LABS: ALB/GLOB RATIO 0.9 (1.1-1.8); ALKALINE PHOSPHATASE 102 U/L (38-126); ALT/SGPT 59 U/L (7-56); AST/SGOT 59 U/L (14-36); BILIRUBIN,TOTAL 0.6 mg/dL (0.2-1.3); BLOOD UREA NITROGEN 15 mg/dL (7-21); CALCIUM 8.1 mg/dL (8.4-10.5); CARBON DIOXIDE 25 mmol/L (21-33); CHLORIDE 106 mmol/L (95-110); GFR AFRICAN-AMERICAN > 60; GLUCOSE,RANDOM 106 mg/dL (70-110); SODIUM 137 mmol/L (132-148); TOTAL PROTEIN 6.3 g/dL (5.8-8.3)
[2017-07-18] MEDS: Magnesium Oxide 400 mg Tab UD PO SCH ×2 (09:55→17:38)
[2017-07-18] MEDS: Azithromycin 500MG/NS 250ml 500 MG/250 ML BAG IVPB SCH (09:56)
[2017-07-18] MEDS: Pantoprazole 40 mg EC Tab PO SCH (09:56)
[2017-07-18] MEDS: PrednisoLONE 15 mg/5 ml Oral Syrup (240 ml) PO SCH (10:47)
--- NOTE | 2017-07-18 11:10 | HP ---
CHIEF COMPLAINT: Fever, chills, not feeling very well, fatigue, tired. HISTORY OF PRESENT ILLNESS: Ms. Pauline Martinez is a 52-year-old lady with past medical history of hypertension, congestive heart failure, on chronic milrinone drip via right-sided PICC line, and AICD placement, who came to the emergency department complaining of shortness of breath, body aches tonight, fatigued, and tired. The patient reports associated chills, chest discomfort, and nausea. The patient reported that she was recently admitted in the hospital for similar symptoms one month ago. The patient reports some relief with oxygen in the ER. The patient denies any fever, abdominal pain, vomiting, diarrhea, back pain, neck pain, headache, or dizziness. PAST MEDICAL HISTORY: As above. Cardiomyopathy, congestive heart failure, Behcet's disease, COPD, sleep apnea syndrome, pneumonia, history of anemia, status post blood transfusion, history of swelling problem, gastroesophageal reflux disease, gastrointestinal disorder, and cholecystectomy. FAMILY HISTORY: Father and mother noncontributory. HABITS: No smoking, no drug, no ethanol. ALLERGIES: THE PATIENT IS ALLERGIC TO ACETAMINOPHEN AND CEFEPIME HOME MEDICATIONS: Lasix, Coreg, Aldactone, Primacor, prednisone, magnesium oxide, Protonix, epinephrine. REVIEW OF SYSTEMS: The patient is seen and examined on the bedside, looking comfortable. No nausea, vomiting, or diarrhea. No hematuria or hematochezia. No swelling of the legs. No chest pain or palpitations. No headache, no dizziness. PHYSICAL EXAMINATION VITAL SIGNS: Temperature 98, blood pressure 98/58, pulse 96, respirations 18. HEENT: Head is normocephalic and atraumatic. Eyes, PERRLA. Extraocular muscles intact. Conjunctivae clear. Nose is patent. Mucous membrane moist. NECK: Supple. No carotid bruits. No JVD or thyromegaly. CHEST: Bilaterally symmetrical. HEART: S1 and S2 positive. LUNGS: Clear to auscultation. ABDOMEN: Soft. Bowel sounds present. No organomegaly. EXTREMITIES: No edema and no cyanosis. NEUROLOGIC: The patient is awake and alert. Moving all 4 extremities. No focal deficit. LABORATORY DATA: White blood cells 7.4, hemoglobin 10.5, hematocrit 33.2, and platelets 219. Sodium 137, potassium 4.1, BUN 12, creatinine 0.9, glucose 73, prolactin 139, albumin 5. ASSESSMENT AND PLAN: Ms. Pauline Martinez is a 52-year-old lady with anemia, abnormal liver function test, hyperglycemia, gastrointestinal and deep venous thrombosis prophylaxis, history of chronic obstructive pulmonary disease, noncompliant, history of status post automatic implantable cardioverter-defibrillator placement, chronic milrinone drip with right PICC line, history of Serratia bacteremia infection. PICC line was removed. ID consult called. Discussion with the nursing staff. Gastrointestinal and deep venous thrombosis prophylaxis. Repeat labs. Carisa Armstrong MD
--- NOTE | 2017-07-18 13:39 | CP.PCM.PN ---
Subjective - Date & Time of Evaluation Date of Evaluation: 07/18/17 Time of Evaluation: 13:36 - Subjective Subjective: Feels better today NO CP or FEVER Maintained on continuous milrinone infusion Objective - Vital Signs/Intake and Output Vital Signs (last 24 hours): Temp Pulse Resp BP Pulse Ox 97.7 F 76 20 93/53 L 95 07/18/17 08:39 07/18/17 06:00 07/18/17 06:00 07/18/17 09:55 07/18/17 06:00 Intake and Output: 07/18/17 07/18/17 06:59 18:59 Intake Total 1433 Output Total 1100 Balance 333 - Medications Medications: Current Medications Carvedilol (Coreg) 25 mg PO BID [facility] Last Admin: 07/18/17 09:55 Dose: 25 mg Famotidine (Pepcid) 20 mg PO DAILY [facility] Last Admin: 07/18/17 09:56 Dose: 20 mg Furosemide (Lasix) 40 mg PO DAILY [facility] Last Admin: 07/18/17 09:55 Dose: 40 mg Milrinone Lactate/Dextrose (Primacor 20mg/100ml D5w) 100 mls @ 6.26 mls/hr IV .[id number] PRN; Protocol; 0.2 MCG/KG/MIN PRN Reason: TITRATE PER MD ORDER Last Admin: 07/17/17 22:41 Dose: 0.2 mcg/kg/min, 6.26 mls/hr Vancomycin HCl (Vancomycin 1gm) 1 gm in 250 mls @ 167 mls/hr IVPB Q12H [facility] PRN Reason: Protocol Last Admin: 07/18/17 12:31 Dose: 167 mls/hr Azithromycin (Zithromax 500mg In Ns) 500 mg in 250 mls @ 167 mls/hr IVPB DAILY [facility] PRN Reason: Protocol Last Admin: 07/18/17 09:56 Dose: 167 mls/hr Aztreonam (Azactam 2 Gm) 100 mls @ 100 mls/hr IVPB Q8 [facility] PRN Reason: Protocol Stop: 07/24/17 22:01 Last Admin: 07/18/17 05:26 Dose: 100 mls/hr Magnesium Oxide (Mag-Ox) 400 mg PO BID [facility] Last Admin: 07/18/17 09:55 Dose: 400 mg Ondansetron HCl (Zofran Inj) 4 mg IVP Q6H PRN PRN Reason: Nausea/Vomiting Last Admin: 07/17/17 23:21 Dose: 4 mg Pantoprazole Sodium (Protonix Ec Tab) 40 mg PO DAILY [facility] Last Admin: 07/18/17 09:56 Dose: 40 mg Prednisolone (Prednisolone Oral Soln) 10 mg PO DAILY [facility] Last Admin: 07/18/17 10:47 Dose: 10 mg Ramipril (Altace) 5 mg PO BID [facility] Last Admin: 07/18/17 09:54 Dose: Not Given Spironolactone (Aldactone) 25 mg PO BID [facility] Last Admin: 07/18/17 09:53 Dose: 25 mg - Labs Labs: 07/18/17 06:23 07/18/17 06:23 PT 10.6 Seconds (9.9-11.8) 07/17/17 01:05 INR 0.98 (0.93-1.08) 07/17/17 01:05 APTT 26.7 Seconds (23.7-30.8) 07/17/17 01:05 - Constitutional Appears: No Acute Distress, Chronically Ill - Head Exam Head Exam: ATRAUMATIC, NORMAL INSPECTION, NORMOCEPHALIC - Eye Exam Eye Exam: EOMI, Normal appearance, PERRL - Neck Exam Neck Exam: absent: Full ROM, Thyromegaly - Respiratory Exam Respiratory Exam: Clear to Ausculation Bilateral. absent: Wheezes - Cardiovascular Exam Cardiovascular Exam: JVD, RRR, +S1, +S2. absent: Gallop, +S4, Murmur - Extremities Exam Extremities Exam: Normal Inspection, Pedal Edema. absent: Calf Tenderness - Neurological Exam Neurological Exam: Alert, Awake, Oriented x3 - Skin Skin Exam: Normal Color, Warm Assessment and Plan - Assessment and Plan (Free Text) Assessment: Severe stage D systolic heart failure, NICM: patient regularly follows up with [facility] advanced [facility]. AICD single lead L. upper chest EKG NSR, LVH with strain PNA Anmemia, low MCV Normal creat and L+ NT PBNP 639 s/p ICU admission for sepsis, fever, hypoxia: improved with ABX and BIPAP plan f/u echo: I will consider MEHRDAD if concerning findings although PNA likely cause of fever and blood cx's negative. Cont CHF RX: Aldactone, coreg, ramipril, lasix and milrinone DVT prophylaxis
--- NOTE | 2017-07-18 14:04 | PN ---
DATE: 07/18/2017 SUBJECTIVE: The patient is in bed, in no acute distress, nontoxic. PHYSICAL EXAMINATION: VITAL SIGNS: Temperature is 97, blood pressure is 93/50, respiratory rate of 18. HEENT: Unremarkable. NECK: Supple. LUNGS: Decreased breath sounds. HEART: Normal S1 and S2. ABDOMEN: Soft. LABORATORY DATA: Reveals a white count of 9; hemoglobin of 8.9, platelets of 159. Coagulation is noted, and chemistries reveal the BUN of 15, creatinine of 1.0, prolactin is 139. Microbiology: None is available. REVIEW OF ORDERS: Reveals the patient to be on aztreonam. He is given a dose of amikacin. The patient is also on prednisone, vancomycin, and Zithromax. ASSESSMENT AND PLAN: A 52-year-old female with automatic implantable cardioverter-defibrillator placement, on chronic milrinone, and right-sided peripherally inserted central catheter line. Recent admission for Serratia bacteremia, status post peripherally inserted central catheter line removed. History of Klebsiella bacteremia and methicillin-resistant Staphylococcus aureus bacteremia, persistent infected tunnel, congestive heart failure, end-stage cardiomyopathy, sepsis with healthcare-associated pneumonia, and sepsis secondary to Serratia bacteremia. Blood cultures have cleared. Currently, on vancomycin, Azactam, and azithromycin. Allergy to cefepime. We will check on her blood cultures, are pending. We will make further recommendations. Osmany Garza MD
[2017-07-19] MEDS: Vancomycin 1gm in NS 250ml 1 GM/250 ML BAG IVPB SCH ×2 (00:35→12:24)
[2017-07-19 02:35] VITALS: O2SAT 100
--- NOTE | 2017-07-19 03:46 | PN ---
PULMONARY PROGRESS NOTE DATE: 07/18/2017 REFERRING PHYSICIAN: Dr. Armstrong. SUBJECTIVE: The patient is lying in the bed, head at 45 degrees. Night was unremarkable. Tolerating BiPAP well. No cough. No sputum production. No nausea. No vomiting. No diarrhea. No leg pain or leg swelling. OBJECTIVE: GENERAL: No acute distress. VITAL SIGNS: Temperature is 98, heart rate is 68, respiratory rate is 20, blood pressure is 105/64, pulse ox 99% on 40% oxygen. HEENT: Moist mucous membrane. Crowded airway. Mallampati score is 4. NECK: Supple. No JVD. LUNGS: Has a fair airflow with few rhonchi. HEART: S1 and S2. ABDOMEN: Soft and nontender. No organomegaly. EXTREMITIES: There is no edema. NEUROLOGIC: Awake and alert. Follow simple commands. Right upper extremity, PICC line area looks okay. MEDICATIONS: She is on Aldactone 25 mg twice a day, Altace 5 mg twice a day, Azactam 2 g IV q. 8 hours, Coreg 25 mg twice a day, Lasix 40 mg daily, magnesium oxide 400 mg twice a day, Motrin 200 mg twice a day p.r.n. for fever, Pepcid 20 mg daily, prednisone 10 mg daily, Primacor IV drip, Protonix 40 mg daily, vancomycin 1 g IV q. 12 hours, Zithromax 500 mg daily, and Zofran p.r.n. basis. LABORATORY DATA: Shows hemoglobin 8.9, hematocrit 28.7, WBC 9.0, and platelets are 158. Sodium 137, potassium 4.0, chloride 106, bicarbonate 25, BUN is 15, creatinine 1.0, calcium is 8.1. AST 59, ALT 59, alkaline phosphatase is 102, albumin is 3.0. Microbiology: Blood culture is negative. Had echocardiogram done, report is pending. IMPRESSION AND PLAN: Septic shock, severe cardiomyopathy, obstructive sleep apnea syndrome, probably has line sepsis, pneumonia, Behcet's disease, steroids dependent, seen by Dr. Garza, on antibiotics. Source may be pneumonia at this time instead of PICC line. Continue BiPAP while sleeping, bronchodilator. Gastric prophylaxis. SCD to lower extremities. Primacor. Had echocardiogram done to rule out endocarditis. Followup labs in the morning. Thank you and we will follow with you. Cruz Teran MD
[2017-07-19] MEDS: Aztreonam 2 Gm in NS 100mL 100 ML IVPB SCH ×2 (05:41→14:19)
[2017-07-19 06:25] LABS: HEMATOCRIT 28.5 % (36.0-48.0); MEAN CELL VOLUME 74.4 fl (80.0-105.0); MEAN CORPUSCULAR HEMOGLOBIN 23.2 pg (25.0-35.0); MEAN CORPUSCULAR HGB CONC 31.2 g/dl (31.0-37.0); MEAN PLATELET VOLUME 9.9 fl (7.0-11.0); RED CELL DISTRIBUTION WIDTH 18.3 % (11.5-14.5); WHITE BLOOD COUNT 7.2 10^3/ul (4.5-11.0)
--- NOTE | 2017-07-19 08:37 | PN ---
DATE: 07/18/2017 SUBJECTIVE: The patient was seen and examined on the bedside, looking comfortable, feeling chilly, and according to the patient she is feeling that fever is coming back, was requesting Motrin and maintaining on continuous milrinone infusion. ID and Cardiology is on the case. No nausea, vomiting, or diarrhea. No hematuria or hematochezia. PHYSICAL EXAMINATION: VITAL SIGNS: Temperature 97.7, pulse 76, respiratory rate 20, blood pressure 93/53, and pulse oximetry 95%. HEENT: Head is normocephalic and atraumatic. Eyes, PERRLA. Extraocular muscles intact. Conjunctivae clear. Nose is patent. Mucous membrane moist. NECK: Supple. No carotid bruits. No JVD or thyromegaly. CHEST: Bilaterally asymmetrical. HEART: S1 and S2 positive. LUNGS: Clear to auscultation. ABDOMEN: Soft. Bowel sounds positive. No organomegaly. EXTREMITIES: No edema. No cyanosis. NEUROLOGIC: The patient is awake and alert. Moving all 4 extremities. No focal deficit. LABORATORY DATA: White blood cell is 9.0, hemoglobin 8.9, hematocrit 28.0, and platelets 158. Sodium 134, potassium 4.0, BUN 15, creatinine 1.0, calcium 8.1, AST 59, and ALT 59. ASSESSMENT AND PLAN: Ms. Pauline Martinez is a 52-year-old lady with a hypocalcemia, abnormal liver function test, and anemia. Seen by the fire prevention inspector, Dr. Beauchamp. Severe stage systolic heart failure, nonischemic cardiomyopathy, patient regularly follows up with the [facility] for advanced congestive heart failure, had automatic implantable cardioverter defibrillator single lead , on upper chest. Anemia with low MCV. He is admitted for sepsis, fever, and hypoxia improved with antibiotics, getting BiPAP. According to fire prevention inspector, he will consider transesophageal echocardiogram , likely causes fever and blood cultures negative. Continue Aldactone, Coreg, ramipril, Lasix, milrinone. DVT and GI prophylaxis. Seen by ID, Dr. Garza. We will continue antibiotics as per ID. History of multiple times sepsis. Continue vancomycin, Azactam, and azithromycin. Discussion done with Dr. Teran. Obesity, obstructive sleep apnea syndrome, Behcet's disease, and steroids dependent. Continue present treatment. Carisa Armstrong MD [facility]
[2017-07-19] MEDS: Magnesium Oxide 400 mg Tab UD PO SCH ×2 (09:17→17:36)
[2017-07-19] MEDS: Pantoprazole 40 mg EC Tab PO SCH (09:17)
[2017-07-19] MEDS: Azithromycin 500MG/NS 250ml 500 MG/250 ML BAG IVPB SCH (09:19)
[2017-07-19] MEDS: PrednisoLONE 15 mg/5 ml Oral Syrup (240 ml) PO SCH (10:48)
[2017-07-19] MEDS: Milrinone 20mg/100ml D5W 100 ML IV PRN (10:49)
--- NOTE | 2017-07-19 13:57 | CP.PCM.PN ---
Subjective - Date & Time of Evaluation Date of Evaluation: 07/19/17 Time of Evaluation: 13:54 - Subjective Subjective: Feels better no fevers no CP Objective - Vital Signs/Intake and Output Vital Signs (last 24 hours): Temp Pulse Resp BP Pulse Ox 98.4 F 70 20 102/68 100 07/19/17 12:00 07/19/17 12:00 07/19/17 12:00 07/19/17 12:00 07/19/17 06:00 Intake and Output: 07/19/17 07/19/17 06:59 18:59 Intake Total 844 0 Output Total 400 Balance 444 0 - Medications Medications: Current Medications Carvedilol (Coreg) 25 mg PO BID [facility] Last Admin: 07/19/17 09:17 Dose: 25 mg Famotidine (Pepcid) 20 mg PO DAILY [facility] Last Admin: 07/19/17 09:18 Dose: 20 mg Furosemide (Lasix) 40 mg PO DAILY [facility] Last Admin: 07/19/17 09:18 Dose: 40 mg Milrinone Lactate/Dextrose (Primacor 20mg/100ml D5w) 100 mls @ 6.26 mls/hr IV .[id number] PRN; Protocol; 0.2 MCG/KG/MIN PRN Reason: TITRATE PER MD ORDER Last Admin: 07/19/17 10:49 Dose: 0.2 mcg/kg/min, 6.26 mls/hr Vancomycin HCl (Vancomycin 1gm) 1 gm in 250 mls @ 167 mls/hr IVPB Q12H [facility]STOR PRN Reason: Protocol Last Admin: 07/19/17 12:24 Dose: 167 mls/hr Azithromycin (Zithromax 500mg In Ns) 500 mg in 250 mls @ 167 mls/hr IVPB DAILY [facility] PRN Reason: Protocol Last Admin: 07/19/17 09:19 Dose: 167 mls/hr Aztreonam (Azactam 2 Gm) 100 mls @ 100 mls/hr IVPB Q8 [facility]STOR PRN Reason: Protocol Stop: 07/24/17 22:01 Last Admin: 07/19/17 05:41 Dose: 100 mls/hr Ibuprofen (Motrin Tab) 200 mg PO BID PRN PRN Reason: Fever >100.4 F Stop: 07/21/17 20:31 Last Admin: 07/18/17 20:46 Dose: 200 mg Magnesium Oxide (Mag-Ox) 400 mg PO BID [facility] Last Admin: 07/19/17 09:17 Dose: 400 mg Ondansetron HCl (Zofran Inj) 4 mg IVP Q6H PRN PRN Reason: Nausea/Vomiting Last Admin: 07/17/17 23:21 Dose: 4 mg Pantoprazole Sodium (Protonix Ec Tab) 40 mg PO DAILY [facility] Last Admin: 07/19/17 09:17 Dose: 40 mg Prednisolone (Prednisolone Oral Soln) 10 mg PO DAILY [facility] Last Admin: 07/19/17 10:48 Dose: 10 mg Ramipril (Altace) 5 mg PO BID [facility] Last Admin: 07/19/17 09:18 Dose: Not Given Spironolactone (Aldactone) 25 mg PO BID [facility] Last Admin: 07/19/17 09:17 Dose: 25 mg - Labs Labs: 07/19/17 06:04 PT 10.6 Seconds (9.9-11.8) 07/17/17 01:05 INR 0.98 (0.93-1.08) 07/17/17 01:05 APTT 26.7 Seconds (23.7-30.8) 07/17/17 01:05 Assessment and Plan - Assessment and Plan (Free Text) Assessment: Severe stage D systolic heart failure, NICM: patient regularly follows up with [facility] advanced CHF clinic. AICD single lead L. upper chest EKG NSR, LVH with strain PNA Anmemia, low MCV Normal creat and L+ NT PBNP 639 s/p ICU admission for sepsis, fever, hypoxia: improved with ABX and BIPAP plan f/u echo 07/18/17: > Severe LV systolic dysfunction with global hypokinesia Mild MR, Mod TR Moderate PULMONARY HTN Grade 1 Diastolic dysfunction with elevated LAP No evidence of suspicious veg or mass noted * No suspicious lesions on repeat TTE * No leukocytosis * Blood cx's negative * Good response after PNA Rx * No fever since 07/17/17 --> No need for MEHRDAD at this time: reconsult if recurrent fevers + blood cultures Cont CHF RX: Aldactone, coreg, ramipril, lasix and milrinone DVT prophylaxis Maintain f/u with CHF clinic at [facility] Entresto suggested as outpatient for additional CHF RX: (Discontinue ANGELA-I 36 hours prior to change) Cont PNA Rx
--- NOTE | 2017-07-19 16:10 | CP.PCM.PN ---
Subjective - Date & Time of Evaluation Date of Evaluation: 07/19/17 Time of Evaluation: 15:45 - Subjective Subjective: Feels better, no nausea, no fevers overnight, no SOB at rest currently, no nausea or diarrhea, no chest pain. Objective - Vital Signs/Intake and Output Vital Signs (last 24 hours): Temp Pulse Resp BP Pulse Ox 97.2 F L 61 20 134/84 100 07/19/17 06:00 07/19/17 09:17 07/19/17 06:00 07/19/17 09:18 07/19/17 06:00 Intake and Output: 07/19/17 07/19/17 06:59 18:59 Intake Total 844 Output Total 400 Balance 444 - Medications Medications: Current Medications Carvedilol (Coreg) 25 mg PO BID [facility] Last Admin: 07/19/17 09:17 Dose: 25 mg Famotidine (Pepcid) 20 mg PO DAILY [facility] Last Admin: 07/19/17 09:18 Dose: 20 mg Furosemide (Lasix) 40 mg PO DAILY [facility] Last Admin: 07/19/17 09:18 Dose: 40 mg Milrinone Lactate/Dextrose (Primacor 20mg/100ml D5w) 100 mls @ 6.26 mls/hr IV .[id number] PRN; Protocol; 0.2 MCG/KG/MIN PRN Reason: TITRATE PER MD ORDER Last Admin: 07/17/17 22:41 Dose: 0.2 mcg/kg/min, 6.26 mls/hr Vancomycin HCl (Vancomycin 1gm) 1 gm in 250 mls @ 167 mls/hr IVPB Q12H [facility] PRN Reason: Protocol Last Admin: 07/19/17 00:35 Dose: 167 mls/hr Azithromycin (Zithromax 500mg In Ns) 500 mg in 250 mls @ 167 mls/hr IVPB DAILY [facility] PRN Reason: Protocol Last Admin: 07/19/17 09:19 Dose: 167 mls/hr Aztreonam (Azactam 2 Gm) 100 mls @ 100 mls/hr IVPB Q8 [facility]STOR PRN Reason: Protocol Stop: 07/24/17 22:01 Last Admin: 07/19/17 05:41 Dose: 100 mls/hr Ibuprofen (Motrin Tab) 200 mg PO BID PRN PRN Reason: Fever >100.4 F Stop: 07/21/17 20:31 Last Admin: 07/18/17 20:46 Dose: 200 mg Magnesium Oxide (Mag-Ox) 400 mg PO BID [facility] Last Admin: 07/19/17 09:17 Dose: 400 mg Ondansetron HCl (Zofran Inj) 4 mg IVP Q6H PRN PRN Reason: Nausea/Vomiting Last Admin: 07/17/17 23:21 Dose: 4 mg Pantoprazole Sodium (Protonix Ec Tab) 40 mg PO DAILY [facility] Last Admin: 07/19/17 09:17 Dose: 40 mg Prednisolone (Prednisolone Oral Soln) 10 mg PO DAILY [facility] Last Admin: 07/18/17 10:47 Dose: 10 mg Ramipril (Altace) 5 mg PO BID [facility] Last Admin: 07/19/17 09:18 Dose: Not Given Spironolactone (Aldactone) 25 mg PO BID [facility] Last Admin: 07/19/17 09:17 Dose: 25 mg - Labs Labs: 07/19/17 06:04 PT 10.6 Seconds (9.9-11.8) 07/17/17 01:05 INR 0.98 (0.93-1.08) 07/17/17 01:05 APTT 26.7 Seconds (23.7-30.8) 07/17/17 01:05 - Constitutional Appears: Non-toxic, No Acute Distress - Head Exam Head Exam: NORMAL INSPECTION - ENT Exam ENT Exam: Mucous Membranes Moist - Neck Exam Neck Exam: absent: Meningismus - Respiratory Exam Respiratory Exam: Decreased Breath Sounds - Cardiovascular Exam Cardiovascular Exam: +S1, +S2 - GI/Abdominal Exam GI & Abdominal Exam: Soft. absent: Tenderness Assessment and Plan - Assessment and Plan (Free Text) Plan: Assessment sepsis due to right sided healthcare-associated pneumonia history of sepsis due to Serratia bacteremia probably PICC-line related S/P removal of the PICC line - blood cx are now clear since line removal - PICC line has been replaced last month (2016) history of Klebsiella bacteremia from UTI (2015) history of Methicillin-sensitive Staph aureus bacteremia, persistent from infected tunneled catheter infection in the right anterior chest wall S/P removal (2015) CHF with end-stage cardiomyopathy Coronary artery disease DM S/P AICD placement Plan continue Vancomycin, Azactam and Zithromax day 3; blood cx are negative; awaiting official 2D echo reading; target 4-7 days of antibiotics will monitor clinically
--- NOTE | 2017-07-19 17:47 | CARD ---
APPROVED REPORT EXAM: Two-dimensional and M-mode echocardiogram with Doppler and color Doppler. INDICATION R/O ENDOCARDITIS 2D DIMENSIONS Left Atrium (2D)4.5 (1.6-4.0cm)IVSd0.9 (0.7-1.1cm) LVDd6.7 (3.9-5.9cm)PWd1.3 (0.7-1.1cm) LVDs5.8 (2.5-4.0cm)FS (%) 14.4 % LVEF (%)29.9 (>50%) M-Mode DIMENSIONS Aortic Root3.80 (2.2-3.7cm)Aortic Cusp Exc.2.00 (1.5-2.0cm) Aortic Valve AoV Peak Xgdmqchu525.0cm/Nichole Peak GR.9mmHg Mitral Valve MV E Trmrfbvz53.3cm/sMV A Qjcymfup23.2cm/sE/A ratio0.9 TDI Lateral E' Peak V6.14cm/sMedial E' Peak V4.87cm/sE/Lateral E'14.7 E/Medial E'18.5 Pulmonary Valve PV Peak Afhutkxx75.0cm/sPV Peak Grad.2mmHg Tricuspid Valve TR Peak [id number]/sRAP [id number] Peak Gr.36mmHg [id number] LEFT VENTRICLE The Left Ventricle is moderately dilated. There is mild concentric left ventricular hypertrophy. The systolic function is severely impaired.EF-25% There is global hypokinesis of the left ventricle. Transmitral Doppler flow pattern is Grade III-reversible restrictive diastolic dysfunction. No left ventricle thrombus noted on this study. There is no ventricular septal defect visualized. There is no left ventricular aneurysm. There is no mass noted in the left ventricle. RIGHT VENTRICLE The right ventricle is mildly dilated. There is normal right ventricular wall thickness. Systolic function is mildly reduced. There is a pacemaker lead in the right ventricle. ATRIA The left atrium is moderately dilated. The right atrium is mildly dilated. There is a catheter/pacemaker lead seen in the right atrium. The interatrial septum is intact with no evidence for an atrial septal defect. AORTIC VALVE The aortic valve is thickened but opens well. There is trace to mild aortic regurgitation. There is no aortic valvular stenosis. Cannot exclude aortic valvular vegetation.( echogenic mobile Structrue Attached to ventriculkar surface of aortic Valve) MITRAL VALVE The mitral valve is thickened but opens well. Mitral regurgitation is moderate. There is no mitral valve stenosis. There is no evidence of mitral valve prolapse. TRICUSPID VALVE The tricuspid valve leaflets are thickened , but open well. There is moderate to severe tricuspid regurgitation. There is no tricuspid valve stenosis. There is no tricuspid valve prolapse or vegetation. PULMONIC VALVE The pulmonary valve is normal in structure. There is trace pulmonic valvular regurgitation. There is no pulmonic valvular stenosis. GREAT VESSELS The aortic root is normal in size. The ascending aorta is normal in size. The pulmonary artery is normal. The IVC is normal in size and collapses >50% with inspiration. PERICARDIAL EFFUSION There is no pleural effusion. There is no pericardial effusion. <Conclusion> Four Chamber dilatation, EF-25% There is trace to mild aortic regurgitation. Cannot exclude aortic valvular vegetation.( echogenic mobile Structrue Attached to ventriculkar surface of aortic Valve) Mitral regurgitation is moderate. There is moderate to severe tricuspid regurgitation. There is no pericardial effusion. The IVC is normal in size and collapses >50% with inspiration. AICD lead noted in RA/RV May consider MEHRDAD to R/o endocarditis.
[2017-07-19 18:04] VITALS: BP 125/77; PULSE 72; TEMP 98.9
--- NOTE | 2017-07-19 20:01 | PN ---
DATE: 07/19/2017 REFERRING PHYSICIAN: Dr. Armstrong. SUBJECTIVE: She is lying in the bed. Night was unremarkable. Feels better. No cough. No shortness of breath. No nausea. No vomiting. No diarrhea. No leg pain or leg swelling. PHYSICAL EXAMINATION: GENERAL: In no acute distress. VITAL SIGNS: Temperature is 98, heart rate is 70, respiratory rate is 20, blood pressure 102/68, pulse ox 100% on nasal cannula. HEENT: Moist mucous membranes. Crowded airway. Mallampati score is 4. NECK: Supple. No JVD. LUNGS: Fair airflow with few rhonchi. HEART: S1 and S2. ABDOMEN: Soft, nontender. No organomegaly. EXTREMITIES: There is no edema. NEUROLOGIC: Awake, alert, follows simple commands. Has a PICC line on the right upper extremity. MEDICATIONS: She is on Aldactone 25 mg twice a day, Altace 5 mg twice a day, Azactam 2 g q. 8 hours, Coreg 25 mg twice a day, Lasix 40 mg daily, magnesium oxide 400 mg twice a day, Motrin 200 mg twice a day p.r.n., Pepcid 20 mg daily, prednisone 10 mg daily. She is on Primacor drip, Protonix 40 mg daily, vancomycin 1 g daily, Zithromax 500 mg daily, and Zofran p.r.n. basis. LABORATORY DATA: Shows hemoglobin 8.9, hematocrit 28.5, WBC 7.2, and platelets are 181. Sodium 137 from yesterday. Microbiology: Blood cultures and have been negative. Echocardiogram done, official report is pending. According to Cardiology, there is no endocarditis. IMPRESSION AND PLAN: Status post septic shock, probably pneumonia; severe cardiomyopathy, obstructive sleep apnea syndrome, history of line sepsis, pneumonia, history of Behcet's disease, steroids dependent; spoke to Cardiology. According to him, the patient is cleared to be discharged; no sign of endocarditis and does not need transesophageal echocardiogram. From Pulmonary point of view, she is doing well. Recommended outpatient sleep study. Gastric prophylaxis. SCD to lower extremities. If clear by Infectious Disease, this patient could be discharged on p.o antibiotics. Thank you and we will follow with you. Cruz Teran MD [facility] # [id number]
--- NOTE | 2017-07-19 23:51 | CP.PCM.DIS ---
Provider - Provider Date of Admission: 07/18/17 15:20 Attending physician: Carisa Armstrong MD Consults: Pauline Martinez is a 52 year old, whose past medical history includes hypertension, CHF on chronic milrinone drip via R-sided PICC line, and AICD placement, who presents to the ED complaining of shortness of breath and body aches tonight. Patient reports associated chills, chest discomfort, and nausea. Patient notes she was recently admitted to the hospital for similar symptoms 1 month prior. Patient reports some relief on oxygen in ER. Patient denies any fever, abdominal pain, vomiting, diarrhea, back pain, neck pain, headache, dizziness, or any other complaints. Time Spent in preparation of Discharge (in minutes): 50 Diagnosis - Discharge Diagnosis (1) Acute exacerbation of CHF (congestive heart failure) Status: Acute (2) Acute pulmonary edema Status: Acute (3) Anemia Status: Acute (4) Cerebrovascular accident Status: Acute (5) Chest pain Status: Acute (6) Congestive heart failure (CHF) Status: Acute (7) Fever Status: Acute (8) Fever and chills Status: Acute (9) Hypocalcemia Status: Acute (10) Hypokalemia Status: Acute (11) Hypomagnesemia Status: Acute (12) Sepsis Status: Acute (13) Syncope Status: Acute (14) UTI (urinary tract infection) Status: Acute (15) Weakness Status: Acute Hospital Course - Lab Results Lab Results: Most Recent Lab Values WBC 7.2 10^3/ul (4.5-11.0) 07/19/17 06:04 RBC 3.83 10^6/uL (3.5-6.1) 07/19/17 06:04 Hgb 8.9 g/dL (12.0-16.0) L 07/19/17 06:04 Hct 28.5 % (36.0-48.0) L 07/19/17 06:04 MCV 74.4 fl (80.0-105.0) L 07/19/17 06:04 MCH 23.2 pg (25.0-35.0) L 07/19/17 06:04 MCHC 31.2 g/dl (31.0-37.0) 07/19/17 06:04 RDW 18.3 % (11.5-14.5) H 07/19/17 06:04 Plt Count 181 10^3/uL (120.0-450.0) 07/19/17 06:04 MPV 9.9 fl (7.0-11.0) 07/19/17 06:04 Gran % 87.3 % (50.0-68.0) H 07/17/17 13:25 Lymph % (Auto) 10.9 % (22.0-35.0) L 07/17/17 13:25 [place] % (Auto) 0.5 % (1.0-6.0) L 07/17/17 13:25 Eos % (Auto) 1.2 % (1.5-5.0) L 07/17/17 13:25 Baso % (Auto) 0.1 % (0.0-3.0) 07/17/17 13:25 Gran # 6.47 (1.4-6.5) 07/17/17 13:25 Lymph # 0.8 (1.2-3.4) L 07/17/17 13:25 [place] # 0.0 (0.1-0.6) L 07/17/17 13:25 Eos # 0.1 (0.0-0.7) 07/17/17 13:25 Baso # 0.01 K/mm3 (0.0-2.0) 07/17/17 13:25 PT 10.6 Seconds (9.9-11.8) 07/17/17 01:05 INR 0.98 (0.93-1.08) 07/17/17 01:05 APTT 26.7 Seconds (23.7-30.8) 07/17/17 01:05 pCO2 33 mm/Hg (35-45) L 07/17/17 14:00 pO2 468.0 mm/Hg (80-100) H 07/17/17 14:00 HCO3 24.0 mmol/L (21-28) 07/17/17 14:00 ABG pH 7.47 (7.35-7.45) H 07/17/17 14:00 ABG Total CO2 25.0 mmol.L (22-28) 07/17/17 14:00 ABG O2 Saturation 100.2 % (95-98) H 07/17/17 14:00 ABG Base Excess 0.6 mmol/L (-2.0-3.0) 07/17/17 14:00 ABG Potassium 3.6 mmol/L (3.6-5.2) 07/17/17 14:00 VBG pH 7.38 (7.32-7.43) 07/17/17 01:05 VBG pCO2 43.0 (40-60) 07/17/17 01:05 VBG HCO3 25.4 mmol/l (21-28) 07/17/17 01:05 VBG Total CO2 26.7 mmol.L (22-28) 07/17/17 01:05 VBG O2 Sat (Calc) 93.6 % (40-65) H 07/17/17 01:05 VBG Base Excess 0.0 mmol/L (0.0-2.0) 07/17/17 01:05 VBG Potassium 3.9 mmol/L (3.6-5.2) 07/17/17 01:05 Sodium 135.0 mmol/L (132-148) 07/17/17 14:00 Chloride 107.0 mmol/L (98-107) 07/17/17 14:00 Glucose 108 mg/dl (65-105) H 07/17/17 14:00 Lactate 0.8 mmol/L (0.7-2.1) 07/17/17 14:00 FiO2 100.0 % 07/17/17 14:00 Sodium 137 mmol/L (132-148) 07/18/17 06:23 Potassium 4.0 mmol/L (3.6-5.0) 07/18/17 06:23 Chloride 106 mmol/L (95-110) 07/18/17 06:23 Carbon Dioxide 25 mmol/L (21-33) 07/18/17 06:23 Anion Gap 10 (10-20) 07/18/17 06:23 BUN 15 mg/dL (7-21) 07/18/17 06:23 Creatinine 1.0 mg/dL (0.5-1.4) 07/18/17 06:23 Est GFR ( Amer) > 60 07/18/17 06:23 Est GFR (Non-Af Amer) 58 07/18/17 06:23 Random Glucose 106 mg/dL (70-110) 07/18/17 06:23 Calcium 8.1 mg/dL (8.4-10.5) L 07/18/17 06:23 Total Bilirubin 0.6 mg/dL (0.2-1.3) 07/18/17 06:23 AST 59 U/L (14-36) H 07/18/17 06:23 ALT 59 U/L (7-56) H 07/18/17 06:23 Alkaline Phosphatase 102 U/L (38-126) 07/18/17 06:23 Lactate Dehydrogenase 463 U/L (333-699) 07/17/17 01:05 Total Creatine Kinase 21 U/L (35-230) L 07/17/17 01:05 Troponin I < 0.01 ng/mL D 07/17/17 01:05 NT-Pro-B Natriuret Pep 639 pg/mL (0-450) H 07/17/17 01:05 Total Protein 6.3 g/dL (5.8-8.3) 07/18/17 06:23 Albumin 3.0 g/dL (3.0-4.8) 07/18/17 06:23 Globulin 3.3 gm/dL 07/18/17 06:23 Albumin/Globulin Ratio 0.9 (1.1-1.8) L 07/18/17 06:23 Prolactin 139.5 ng/mL (3.0-18.9) H 07/17/17 13:25 Arterial Blood Potassium 3.6 mmol/L (3.6-5.2) 07/17/17 14:00 Venous Blood Potassium 3.9 mmol/L (3.6-5.2) 07/17/17 01:05 - Hospital Course Hospital Course: Pauline Martinez is a 52 year old, whose past medical history includes hypertension, CHF on chronic milrinone drip via R-sided PICC line, and AICD placement, who presents to the ED complaining of shortness of breath and body aches tonight. Patient reports associated chills, chest discomfort, and nausea. Patient notes she was recently admitted to the hospital for similar symptoms 1 month prior. Patient reports some relief on oxygen in ER. Patient denies any fever, abdominal pain, vomiting, diarrhea, back pain, neck pain, headache, dizziness, or any other complaints. Assessment sepsis due to right sided healthcare-associated pneumonia history of sepsis due to Serratia bacteremia probably PICC-line related S/P removal of the PICC line - blood cx are now clear since line removal - PICC line has been replaced last month (2016) history of Klebsiella bacteremia from UTI (2015) history of Methicillin-sensitive Staph aureus bacteremia, persistent from infected tunneled catheter infection in the right anterior chest wall S/P removal (2015) CHF with end-stage cardiomyopathy Coronary artery disease DM S/P AICD placement Plan continue Vancomycin, Azactam and Zithromax day 3; blood cx are negative; awaiting official 2D echo reading; target 4-7 days of antibiotics will monitor clinically Severe stage D systolic heart failure, NICM: patient regularly follows up with [facility] advanced CHF clinic. AICD single lead L. upper chest EKG NSR, LVH with strain PNA Anmemia, low MCV Normal creat and L+ NT PBNP 639 s/p ICU admission for sepsis, fever, hypoxia: improved with ABX and BIPAP plan f/u echo 07/18/17: > Severe LV systolic dysfunction with global hypokinesia Mild MR, Mod TR Moderate PULMONARY HTN Grade 1 Diastolic dysfunction with elevated LAP No evidence of suspicious veg or mass noted * No suspicious lesions on repeat TTE * No leukocytosis * Blood cx's negative * Good response after PNA Rx * No fever since 07/17/17 --> No need for MEHRDAD at this time: reconsult if recurrent fevers + blood cultures Cont CHF RX: Aldactone, coreg, ramipril, lasix and milrinone DVT prophylaxis Maintain f/u with CHF clinic at [facility] Entreg[place]ako suggested as outpatient for additional CHF RX: (Discontinue ANGELA-I 36 hours prior to change) Cont PNA Rx pt cl by ID with po anb levaquin and zyvox . and cl by cardio Discharge Exam - Head Exam Head Exam: NORMAL INSPECTION - Eye Exam Eye Exam: EOMI, Normal appearance, PERRL Pupil Exam: NORMAL ACCOMODATION, PERRL - GI/Abdominal Exam GI & Abdominal Exam: Normal Bowel Sounds - Rectal Exam Rectal Exam: NORMAL INSPECTION - Exam Exam: Circumcision, NORMAL INSPECTION External exam: NORMAL EXTERNAL EXAM Speculum exam: NORMAL SPECULUM EXAM Bimanual exam: NORMAL BIMANUAL EXAM - Neurological Exam Neurological exam: Alert, CN II-XII Intact, Normal Gait, Oriented x3, Reflexes Normal - Psychiatric Exam Psychiatric exam: Normal Affect, Normal Mood - Skin Skin Exam: Dry, Intact, Normal Color, Warm Discharge Plan - Follow Up Plan Condition: STABLE Disposition: HOME/ ROUTINE Instructions: Heart Failure (DC), Viral Pneumonia (DC), Heart Healthy Diet (DC)
== END 2017-07-19 19:34 | disposition home or self-care (01) | DRG 871 ==
LOC: ED 23:39 → ERH 07-17 02:23 → CCU 07-17 05:15 → 2RNO 07-17 23:03 → OBSVTOIN 07-18 15:20
PROVIDERS: ADMIT Internal Medicine; ATTEND Internal Medicine
PROC: 5A09357 Assistance with Respiratory Ventilation, Less than 24 Consecutive Hours, Continuous Positive Airway Pressure (ICD-10-PCS; principal; 2017-07-17)
DX: A41.9 Sepsis, unspecified organism (principal); J18.9 Pneumonia, unspecified organism; R65.21 Severe sepsis with septic shock; I50.21 Acute systolic (congestive) heart failure; I42.9 Cardiomyopathy, unspecified; M35.2 Behcet's disease; I11.0 Hypertensive heart disease with heart failure; E83.42 Hypomagnesemia; E83.51 Hypocalcemia; D64.9 Anemia, unspecified; E87.6 Hypokalemia; I25.10 Atherosclerotic heart disease of native coronary artery without angina pectoris; Y95 Nosocomial condition; R09.02 Hypoxemia; G47.33 Obstructive sleep apnea (adult) (pediatric); I27.2 Other secondary pulmonary hypertension; E11.9 Type 2 diabetes mellitus without complications; E66.9 Obesity, unspecified; Z76.82 Awaiting organ transplant status; Z68.36 Body mass index [BMI] 36.0-36.9, adult; Z79.52 Long term (current) use of systemic steroids; Z95.810 Presence of automatic (implantable) cardiac defibrillator

== ENCOUNTER 2017-07-24 11:17 | Day surgery (SDC) | payer OTHER ==
[2017-07-24 12:19] LABS: BASO # 0.01 K/mm3 (0.0-2.0); BASO % 0.2 % (0.0-3.0); EOS # 0.1 (0.0-0.7); EOS % 1.4 % (1.5-5.0); GRAN # 3.35 (1.4-6.5); GRAN % 58.2 % (50.0-68.0); LYMPH # 1.5 (1.2-3.4); LYMPH % 25.2 % (22.0-35.0); MEAN CELL VOLUME 74.6 fl (80.0-105.0); MEAN CORPUSCULAR HEMOGLOBIN 23.1 pg (25.0-35.0); MEAN PLATELET VOLUME 9.2 fl (7.0-11.0); MONO # 0.9 (0.1-0.6); RED CELL DISTRIBUTION WIDTH 18.2 % (11.5-14.5); WHITE BLOOD COUNT 5.8 10^3/ul (4.5-11.0)
[2017-07-24 12:26] LABS: BLOOD UREA NITROGEN 15 mg/dL (7-21); CALCIUM 8.8 mg/dL (8.4-10.5); CARBON DIOXIDE 24 mmol/L (21-33); CHLORIDE 106 mmol/L (98-107); GFR AFRICAN-AMERICAN > 60; GLUCOSE,RANDOM 107 mg/dL (70-110); POTASSIUM 3.5 mmol/L (3.6-5.0); SODIUM 140 mmol/L (132-148)
[2017-07-24 12:27] LABS: INR 0.99 (0.93-1.08); PARTIAL THROMBOPLASTIN TIME 24.5 Seconds (23.7-30.8)
[2017-07-24] MEDS ORDERED: Lidocaine 2% Inj (20ml) ONE (13:58)
[2017-07-24] MEDS ORDERED: Midazolam 2 MG/2 ML VIAL ONE ×2 (13:59→14:42)
[2017-07-24] MEDS ORDERED: Sodium Chloride 0.45% 1,000 ML IV SCH (16:30)
[2017-07-24 16:54] VITALS: BP 136/83; PULSE 88; RESP 18; TEMP 97.9; O2SAT 100
--- NOTE | 2017-07-24 20:22 | VASCULAR ---
PROCEDURE: Ultrasound and fluoroscopic right internal jugular venous access port. CLINICAL HISTORY: Cardiomyopathy.Venous port for milrinone infusion. PHYSICIAN(S): Phil Bolton M.D. TECHNIQUE: The relative risks and indications of the procedure were explained to the patient and consent obtained. The patient was placed supine on the arteriogram table and the right neck and chest and draped in the usual sterile fashion. Conscious sedation monitoring was provided throughout the procedure by a nurse. Antibiotics were given prior to the procedure. Under direct ultrasound guidance, the right internal jugular vein was punctured with a micro-puncture set. A 0.035 angled Glidewire was advanced into the IVC. A 4 cm incision was made below the right clavicle and the pocket blunted dissected. A 8 [place] single-lumen catheter, 23 cm long, was advanced to the SVC/RA junction. The catheter was trimmed and attached to the port. The port aspirates and injects easily. The port was placed in the pocket and closed in 2 layers. An access needle was placed. The patient tolerated the procedure well. IMPRESSION: Ultrasound and fluoroscopically placed right internal jugular venous access port.
== END 2017-07-24 17:56 | disposition home or self-care (01) ==
LOC: SDSVAS 11:17
PROVIDERS: ATTEND Radiology Vascular & Interventional Radiology
DX: I42.9 Cardiomyopathy, unspecified (principal); Z79.899 Other long term (current) drug therapy; I11.0 Hypertensive heart disease with heart failure; I50.9 Heart failure, unspecified; M35.2 Behcet's disease; Z95.810 Presence of automatic (implantable) cardiac defibrillator
CPT/HCPCS: 36415; 36561; 76937; 77001; 80048; 84703; 85025; 85610; 85730; 99152; C1769; C1788; J0690; J1644; J2250; J2405; J3010; J7030

== ENCOUNTER 2017-08-20 03:19 | Inpatient (IN) | payer OTHER, MEDICARE ==
[2017-08-20 03:28] VITALS: BMI 38.0
--- NOTE | 2017-08-20 03:38 | ED PDOC ---
Arrival/HPI - General Time Seen by Provider: 08/20/17 03:21 Historian: Patient - History of Present Illness Narrative History of Present Illness (Text): 08/20/17 03:38 Pauline Martinez is a 52 year old, whose past medical history includes hypertension, CHF on chronic milrinone drip via R-sided PICC line, and AICD placement, who presents to the ED complaining of chest pain. Patient states she was shocked 3 times by her AICD tonight and developed left-sided chest pain with associated dizziness. Patient notes she is chronically anemia and received IV iron infusions. Patient denies any fever, chills, nausea, vomiting, diarrhea , urinary symptoms, back pain, neck pain, headache, dizziness, or any other complaints. PMD: Dr. iGovanni Armstrong Time/Duration: Other (tonight) Symptom Onset: Gradual Symptom Course: Unchanged Activities at Onset: Light Context: Home Past Medical History - Provider Review Nursing Documentation Reviewed: Yes - Infectious Disease Hx of Infectious Diseases: None - Tetanus Immunization Tetanus Immunization: Unknown - Cardiac Hx Pacemaker: No (PT DENIES) - Pulmonary Hx Chronic Obstructive Pulmonary Disease (COPD): Yes Hx Pneumonia: Yes Hx Sleep Apnea: Yes - Neurological Hx Paralysis: No - HEENT Hx HEENT Disorder: Yes (Wears glasses.) - Renal Hx Renal Disorder: No - Endocrine/Metabolic Hx Endocrine Disorders: No - Hematological/Oncological Hx Blood Transfusions: Yes Hx Blood Transfusion Reaction: No - Integumentary Hx Dermatological Disorder: No - Musculoskeletal/Rheumatological Hx Musculoskeletal Disorders: Yes - Gastrointestinal Hx Gastrointestinal Disorders: Yes Hx Gastroesophageal Reflux: Yes HX Swallowing Problems: Yes - Genitourinary/Gynecological Hx Genitourinary Disorders: No - Psychiatric Hx Emotional Abuse: No Hx Physical Abuse: No Hx Substance Use: No - Surgical History Hx Cholecystectomy: Yes - Anesthesia Hx Anesthesia: Yes Hx Anesthesia Reactions: No Hx Malignant Hyperthermia: No - Suicidal Assessment Feels Threatened In Home Enviroment: No Family/Social History - Physician Review Nursing Documentation Reviewed: Yes Family/Social History: Unknown Family HX Smoking Status: Never Smoked Hx Alcohol Use: No Hx Substance Use: No Hx Substance Use Treatment: No Allergies/Home Meds Allergies/Adverse Reactions: Allergies acetaminophen Allergy (Verified 08/20/17 03:28) ANGIOEDEMA cefepime Allergy (Verified 08/20/17 03:28) ANAPHYLAXIS Home Medications: Home Meds Medication Instructions Recorded Confirmed Furosemide [Lasix] 40 mg PO BID 10/17/15 08/20/17 Carvedilol [Coreg] 25 mg PO BID 03/29/16 08/20/17 Spironolactone [Aldactone] 25 mg PO BID 03/29/16 08/20/17 Prednisolone [Millipred] 10 mg PO DAILY 06/11/16 08/20/17 Magnesium Oxide [Mag-Ox] 400 mg PO BID 01/01/17 08/20/17 Pantoprazole [Protonix EC Tab] 40 mg PO DAILY 01/01/17 08/20/17 Epinephrine HCl [Epipen 0.3 mg IM ONCE PRN 03/26/17 08/20/17 Auto-Injector] Milrinone 20mg/100ml D5W [Primacor 0.2 mcg IV DAILY 07/19/17 08/20/17 20mg/100ml D5W] Review of Systems - Physician Review All systems were reviewed & negative as marked: Yes - Review of Systems Constitutional: Normal. absent: Fevers Eyes: Normal ENT: Normal Respiratory: Normal. absent: SOB, Cough Cardiovascular: Chest Pain Gastrointestinal: Normal. absent: Abdominal Pain, Diarrhea, Nausea, Vomiting Genitourinary Female: Normal. absent: Dysuria, Frequency, Hematuria, Urine Output Changes Musculoskeletal: Normal. absent: Back Pain, Neck Pain Skin: Normal. absent: Rash Neurological: Dizziness Endocrine: Normal Hemo/Lymphatic: Normal Psychiatric: Normal Physical Exam Vital Signs Reviewed: Yes Vital Signs Temp Pulse Resp BP Pulse Ox 08/20/17 09:45 109 H 140/59 L 08/20/17 08:00 101 F H 107 H 18 140/59 L 98 08/20/17 06:28 84 18 136/88 99 08/20/17 03:36 98.5 F 89 16 133/83 96 Temperature: Afebrile Blood Pressure: Normal Pulse: Regular Respiratory Rate: Normal Appearance: Positive for: Well-Appearing, Non-Toxic, Comfortable Pain Distress: None Mental Status: Positive for: Alert and Oriented X 3 - Systems Exam Head: Present: Atraumatic, Normocephalic Pupils: Present: PERRL Extroacular Muscles: Present: EOMI Conjunctiva: Present: Normal Mouth: Present: Moist Mucous Membranes Neck: Present: Normal Range of Motion Respiratory/Chest: Present: Clear to Auscultation, Good Air Exchange. No: Respiratory Distress, Accessory Muscle Use Cardiovascular: Present: Regular Rate and Rhythm, Normal S1, S2. No: Murmurs Abdomen: Present: Normal Bowel Sounds. No: Tenderness, Distention, Peritoneal Signs Back: Present: Normal Inspection Upper Extremity: Present: Normal Inspection. No: Cyanosis, Edema Lower Extremity: Present: Normal Inspection. No: Edema Neurological: Present: GCS=15, CN II-XII Intact, Speech Normal Skin: Present: Warm, Dry, Normal Color. No: Rashes Psychiatric: Present: Alert, Oriented x 3, Normal Insight, Normal Concentration Medical Decision Making ED Course and Treatment: 08/20/17 03:38 Impression: 52 year old female complaining of left-sided chest pain and dizziness. States she was shocked 3 times by her AICD tonight. Plan: -- EKG -- CXR -- Labs, cardiac enzymes -- Urinalysis -- Reassess and disposition Prior Visits: Notes and results from previous visits were reviewed. On 07/17/2017, pt was seen in the Emergency department for shortness of breath, body aches, chills, chest discomfort, and nausea. Pt was admitted to the hospital for further evaluation. Progress Notes: Reviewed EKG, NSR at 87 bpm. Non-specific ST/T wave changes. 08/20/17 06:10 Reviewed radiology, CXR shows mild cardiomegaly, no CHF, AICD in place. case d/w dr armstrong will tele obs for arrhythmia and chest pain 08/20/17 19:57 - Lab Interpretations Lab Results: 08/20/17 05:05 08/20/17 05:05 Lab Results 08/20/17 06:00: Iron 30 L, TIBC 403, % Saturation 7 L 08/20/17 05:05: Sodium 142, Potassium 3.6, Chloride 106, Carbon Dioxide 26, Anion Gap 14, BUN 18, Creatinine 1.1, Est GFR ( Amer) > 60, Est GFR (Non- Af Amer) 52, Random Glucose 101, Calcium 9.2, Magnesium 2.0, Total Bilirubin 0.5 , AST 35, ALT 23, Alkaline Phosphatase 86, Lactate Dehydrogenase 545, Total Creatine Kinase 30 L, Troponin I < 0.01, Total Protein 7.3, Albumin 3.9, Globulin 3.4, Albumin/Globulin Ratio 1.1 08/20/17 05:05: PT 10.2, INR 0.94, APTT 27.8 08/20/17 05:05: WBC 5.1, RBC 4.22, Hgb 9.7 L, Hct 31.2 L, MCV 73.9 L, MCH 23.0 L , MCHC 31.1, RDW 18.4 H, Plt Count 233, MPV 9.6, Gran % 72.9 H, Lymph % (Auto) 17.0 L, [place] % (Auto) 7.5 H, Eos % (Auto) 2.4, Baso % (Auto) 0.2, Gran # 3.68, Lymph # 0.9 L, [place] # 0.4, Eos # 0.1, Baso # 0.01 I have reviewed the lab results: Yes - RAD Interpretation Radiology Orders: 08/20/17 03:36 CHEST PORTABLE [RAD] Stat Master Ship: ED Physician - EKG Interpretation Interpreted by ED Physician: Yes Type: 12 lead EKG - Medication Orders Current Medication Orders: Carvedilol (Coreg) 25 mg PO BID COUNTS INCLUDE 234 BEDS AT THE [facility] Last Admin: 08/20/17 18:03 Dose: 25 mg MAR Pulse and Blood Pressure Document 08/20/17 18:03 RDS (Rec: 08/20/17 18:05 [facility] [id number]) Pulse Pulse Rate (60-90) 93 Blood Pressure Blood Pressure (100/60-150/90) 106/85 Doxycycline Hyclate (Doryx) 100 mg PO Q12 NESTOR PRN Reason: Protocol Stop: 08/29/17 22:01 Famotidine (Pepcid) 20 mg PO DAILY COUNTS INCLUDE 234 BEDS AT THE [facility] Last Admin: 08/20/17 12:48 Dose: 20 mg Furosemide (Lasix) 40 mg PO BID COUNTS INCLUDE 234 BEDS AT THE [facility] Last Admin: 08/20/17 18:05 Dose: 40 mg MAR Blood Pressure Document 08/20/17 18:05 RDS (Rec: 08/20/17 18:05 [facility] [id number]) Blood Pressure Blood Pressure (100/60-150/90) 106/85 Milrinone Lactate/Dextrose (Primacor 20mg/100ml D5w) 100 mls @ 6.423 mls/hr IV .[id number] PRN; Protocol; 0.2 MCG/KG/MIN PRN Reason: TITRATE PER MD ORDER Last Admin: 08/20/17 09:45 Dose: 0.2 mcg/kg/min, 6.423 mls/hr eMAR Start Stop Document 08/20/17 09:45 SRE (Rec: 08/20/17 09:48 SRE [id number]) Intravenous Solution Start Date 08/20/17 Start Time 09:45 MAR Pulse and Blood Pressure Document 08/20/17 09:45 SRE (Rec: 08/20/17 09:48 SRE [id number]) Pulse Pulse Rate (60-90) 109 Blood Pressure Blood Pressure (100/60-150/90) 140/59 Titration Intervention Document 08/20/17 09:45 SRE (Rec: 08/20/17 09:48 SRE [id number]) Titration Intake Waste Amount 0 Container Volume 100 Titration Dosing Titration Dose 0.2 IV Rate 6.423 Intake/Decrease Started Aztreonam (Azactam 1 Gm) 100 mls @ 100 mls/hr IVPB Q8 NESTOR PRN Reason: Protocol Stop: 08/29/17 14:01 Last Admin: 08/20/17 15:19 Dose: 100 mls/hr eMAR Start Stop Document 08/20/17 15:19 RDS (Rec: 08/20/17 15:19 RDS [id number]) Intravenous Solution Start Date 08/20/17 Start Time 15:19 End Date 08/20/17 End time 16:19 Total Infusion Time 60 Vancomycin HCl (Vancomycin 1gm) 1 gm in 250 mls @ 167 mls/hr IVPB Q12H NESTOR PRN Reason: Protocol Stop: 08/29/17 12:31 Last Admin: 08/20/17 12:55 Dose: 167 mls/hr eMAR Start Stop Document 08/20/17 12:55 RDS (Rec: 08/20/17 14:06 RDS [id number]) Intravenous Solution Start Date 08/20/17 Start Time 12:55 End Date 08/20/17 End time 14:25 Total Infusion Time 90 Ibuprofen (Motrin Tab) 200 mg PO Q6H PRN PRN Reason: Fever >100.4 F Last Admin: 08/20/17 11:00 Dose: 200 mg MAR Pain/Vitals Document 08/20/17 11:00 SRE (Rec: 08/20/17 11:14 SRE [id number]) Pain Reassessment Is This A Pain ReAssessment? Yes Sleep Is patient sleeping during reassessment? No Presence of Pain Presence of Pain Yes Pain Scale Used Pain Scale Used Numeric Location Description Intermittent Re-Assess: MAR Pain/Vitals Document 08/20/17 12:00 RDS (Rec: 08/20/17 18:10 RDS [id number]) Pain Reassessment Is This A Pain ReAssessment? No Vitals Temperature (97.6 F-99.6 F) 101.9 F Magnesium Oxide (Mag-Ox) 400 mg PO BID COUNTS INCLUDE 234 BEDS AT THE [facility] Last Admin: 08/20/17 18:03 Dose: 400 mg Ondansetron HCl (Zofran Inj) 4 mg IVP Q4 PRN PRN Reason: Nausea/Vomiting Pantoprazole Sodium (Protonix Ec Tab) 40 mg PO DAILY COUNTS INCLUDE 234 BEDS AT THE [facility] Last Admin: 08/20/17 12:48 Dose: 40 mg Spironolactone (Aldactone) 25 mg PO BID COUNTS INCLUDE 234 BEDS AT THE [facility] Last Admin: 08/20/17 18:09 Dose: 25 mg Discontinued Medications Iron Sucrose 100 mg/ Sodium (Chloride) 105 mls @ 210 mls/hr IVPB ONCE ONE Stop: 08/20/17 11:54 Last Admin: 08/20/17 18:05 Dose: 210 mls/hr eMAR Start Stop Document 08/20/17 18:05 RDS (Rec: 08/20/17 18:06 RDS [id number]) Intravenous Solution Start Date 08/20/17 Start Time 18:05 End Date 08/20/17 End time 18:35 Total Infusion Time 30 Ibuprofen (Motrin Tab) 400 mg PO STAT STA Stop: 08/20/17 06:24 Last Admin: 08/20/17 06:27 Dose: 400 mg [facility] Pain/Vitals Document 08/20/17 06:27 JOSE ALBERTO (Rec: 08/20/17 06:27 JOSE ALBERTO [id number]) Pain Reassessment Is This A Pain ReAssessment? No Re-Assess: [facility] Pain/Vitals Document 08/20/17 07:27 SRE (Rec: 08/20/17 09:08 SRE [id number]) Pain Reassessment Is This A Pain ReAssessment? Yes Sleep Is patient sleeping during reassessment? No Presence of Pain Presence of Pain Yes Pain Scale Used Pain Scale Used Numeric Location Description Intermittent Ondansetron HCl (Zofran Inj) 4 mg IVP STAT STA Stop: 08/20/17 10:39 Last Admin: 08/20/17 11:00 Dose: 4 mg IVP Administration Document 08/20/17 11:00 SRE (Rec: 08/20/17 11:14 SRE [id number]) Charges for Administration # of IVP Administrations 1 - Scribe Statement The provider has reviewed the documentation as recorded by the Scribe Grecia Merrill All medical record entries made by the Scribe were at my direction and personally dictated by me. I have reviewed the chart and agree that the record accurately reflects my personal performance of the history, physical exam, medical decision making, and the department course for this patient. I have also personally directed, reviewed, and agree with the discharge instructions and disposition. Disposition/Present on Arrival - Present on Arrival Any Indicators Present on Arrival: No History of DVT/PE: No History of Uncontrolled Diabetes: No Urinary Catheter: No History of Decub. Ulcer: No History Surgical Site Infection Following: None - Disposition Have Diagnosis and Disposition been Completed?: Yes Diagnosis: Chest pain Disposition: HOSPITALIZED Disposition Time: 06:45 Condition: FAIR
[2017-08-20 05:47] LABS: BASO # 0.01 K/mm3 (0.0-2.0); BASO % 0.2 % (0.0-3.0); EOS # 0.1 (0.0-0.7); EOS % 2.4 % (1.5-5.0); GRAN # 3.68 (1.4-6.5); GRAN % 72.9 % (50.0-68.0); HEMATOCRIT 31.2 % (36.0-48.0); LYMPH # 0.9 (1.2-3.4); MEAN CELL VOLUME 73.9 fl (80.0-105.0); MEAN CORPUSCULAR HGB CONC 31.1 g/dl (31.0-37.0); MEAN PLATELET VOLUME 9.6 fl (7.0-11.0); MONO # 0.4 (0.1-0.6); MONO % 7.5 % (1.0-6.0); RED CELL DISTRIBUTION WIDTH 18.4 % (11.5-14.5); WHITE BLOOD COUNT 5.1 10^3/ul (4.5-11.0)
[2017-08-20 05:58] LABS: INR 0.94 (0.93-1.08); PARTIAL THROMBOPLASTIN TIME 27.8 Seconds (23.7-30.8)
[2017-08-20 06:01] LABS: ALB/GLOB RATIO 1.1 (1.1-1.8); ALKALINE PHOSPHATASE 86 U/L (38-126); ALT/SGPT 23 U/L (7-56); AST/SGOT 35 U/L (14-36); BILIRUBIN,TOTAL 0.5 mg/dL (0.2-1.3); BLOOD UREA NITROGEN 18 mg/dL (7-21); CALCIUM 9.2 mg/dL (8.4-10.5); CARBON DIOXIDE 26 mmol/L (21-33); CHLORIDE 106 mmol/L (98-107); GFR AFRICAN-AMERICAN > 60; GLUCOSE,RANDOM 101 mg/dL (70-110); POTASSIUM 3.6 mmol/L (3.6-5.0); SODIUM 142 mmol/L (132-148); TOTAL PROTEIN 7.3 g/dL (5.8-8.3)
[2017-08-20 06:16] LABS: TROPONIN I < 0.01 ng/mL
[2017-08-20 07:30] LABS: PH,URINE 6.5 (4.7-8.0); URINE BILIRUBIN NEGATIVE (NEGATIVE); URINE BLOOD NEGATIVE (NEGATIVE); URINE GLUCOSE (UA) NEGATIVE (NEGATIVE); URINE KETONE NEGATIVE (NEGATIVE); URINE LEUKOCYTE ESTERASE TRACE Leu/uL (NEGATIVE); URINE PROTEIN TRACE mg/dL (<30 mg/dL); URINE UROBILINOGEN 0.2 E.U./dL (<1 E.U./dL)
[2017-08-20 07:33] LABS: URINE APPEARANCE SLIGHT-CLOUDY (CLEAR)
[2017-08-20 07:39] LABS: URINE RBC 0 - 2 /hpf (0-2)
[2017-08-20] MEDS: Milrinone 20mg/100ml D5W 100 ML IV PRN ×2 (09:45→23:34)
[2017-08-20] MEDS ORDERED: [UNRECOGNIZED DRUG - OTHER] IV SCH (11:30)
[2017-08-20] MEDS ORDERED: MILRINONE 20 MG/100 ML IV SCH (11:30)
--- NOTE | 2017-08-20 12:07 | RAD ---
HISTORY: cp COMPARISON: Comparison chest 07/17/2017 FINDINGS: Re- demonstrated is right IJ MediPort tip in the SVC LUNGS: No acute infiltrates PLEURA: No significant pleural effusion identified, no pneumothorax apparent. CARDIOVASCULAR: No change single lead pacemaker/ defibrillator. Cardiomegaly. OSSEOUS STRUCTURES: No significant abnormalities. VISUALIZED UPPER ABDOMEN: Normal. OTHER FINDINGS: None. IMPRESSION: No acute infiltrates. Cardiomegaly.
[2017-08-20] MEDS: Magnesium Oxide 400 mg Tab UD PO SCH ×2 (12:48→18:03)
[2017-08-20] MEDS: Pantoprazole 40 mg EC Tab PO SCH (12:48)
[2017-08-20] MEDS: Vancomycin 1gm in NS 250ml 1 GM/250 ML BAG IVPB SCH ×3 (12:55→23:44)
[2017-08-20] MEDS ORDERED: Influenza Vaccine 60 mcg/0.5 mL SYR (4YR UP) IM ONE (13:42)
--- NOTE | 2017-08-20 14:40 | CP.PCM.CON ---
History of Present Illness - History of Present Illness History of Present Illness: 52 y/o woman with long standing HTN, Hx of NICM (last ech 01/2017 with EF 20-25% ) on milrinone infusion pump via R. arm PICC. She is followed by CHF clinic at [facility]. Prior admissions for PNA/Bronchitis and CHF exacerbation. She reports ? shock from the debrillator and passing out spontaneously while at home. Currently appears lethargic and sleepy: arrousable and answers appropriately. Denies fevers, chills cough. Denies any CP or Anginal sx's. Overall NYHA 2-3 with day to day activities. Denies CP, is not ill appearing, No SOB no volume overload. No N/V/D. PMHX: HTN, NICM- severe systolic LV dysfunction, hx of IE in past, AICD- single lead, Behcet's syndrome PSHX: Allergies: per chart Social: No toxic habits family hx: CHF, no premature CAD or SCD Review of Systems - Constitutional Constitutional: As Per HPI Past Patient History - Infectious Disease Hx of Infectious Diseases: None - Tetanus Immunizations Tetanus Immunization: Unknown - Past Social History Smoking Status: Never Smoked - CARDIAC Hx Internal Defibrillator: Yes Hx Pacemaker: No (PT DENIES) - PULMONARY Hx Chronic Obstructive Pulmonary Disease (COPD): Yes Hx Pneumonia: Yes Hx Sleep Apnea: Yes - NEUROLOGICAL HX Cerebrovascular Accident: Yes - HEENT Hx HEENT Problems: Yes (Wears glasses.) - RENAL Hx Chronic Kidney Disease: No - ENDOCRINE/METABOLIC Hx Endocrine Disorders: No - HEMATOLOGICAL/ONCOLOGICAL Hx Blood Disorders: Yes - INTEGUMENTARY Hx Dermatological Problems: No - MUSCULOSKELETAL/RHEUMATOLOGICAL Hx Falls: No - GASTROINTESTINAL Hx Gastrointestinal Disorders: Yes Hx Gastroesophageal Reflux: Yes HX Swallowing Problems: Yes - GENITOURINARY/GYNECOLOGICAL Hx Genitourinary Disorders: No - PSYCHIATRIC Hx Emotional Abuse: No Hx Physical Abuse: No - SURGICAL HISTORY Hx Cholecystectomy: Yes - ANESTHESIA Hx Anesthesia: Yes Hx Anesthesia Reactions: No Hx Malignant Hyperthermia: No Meds Allergies/Adverse Reactions: Allergies Allergy/AdvReac Type Severity Reaction Status Date / Time acetaminophen Allergy ANGIOEDEMA Verified 08/20/17 03:28 cefepime Allergy ANAPHYLAXIS Verified 08/20/17 03:28 - Medications Medications: Current Medications Carvedilol (Coreg) 25 mg PO BID [facility] Doxycycline Hyclate (Doryx) 100 mg PO Q12 [facility] PRN Reason: Protocol Stop: 08/29/17 22:01 Famotidine (Pepcid) 20 mg PO DAILY [facility] Last Admin: 08/20/17 12:48 Dose: 20 mg Furosemide (Lasix) 40 mg PO BID [facility] Last Admin: 08/20/17 12:48 Dose: 40 mg Milrinone Lactate/Dextrose (Primacor 20mg/100ml D5w) 100 mls @ 6.423 mls/hr IV .[id number] PRN; Protocol; 0.2 MCG/KG/MIN PRN Reason: TITRATE PER MD ORDER Last Admin: 08/20/17 09:45 Dose: 0.2 mcg/kg/min, 6.423 mls/hr Aztreonam (Azactam 1 Gm) 100 mls @ 100 mls/hr IVPB Q8 [facility] PRN Reason: Protocol Stop: 08/29/17 14:01 Vancomycin HCl (Vancomycin 1gm) 1 gm in 250 mls @ 167 mls/hr IVPB Q12H [facility] PRN Reason: Protocol Stop: 08/29/17 12:31 Last Admin: 08/20/17 12:55 Dose: 167 mls/hr Ibuprofen (Motrin Tab) 200 mg PO Q6H PRN PRN Reason: Fever >100.4 F Last Admin: 08/20/17 11:00 Dose: 200 mg Magnesium Oxide (Mag-Ox) 400 mg PO BID [facility] Last Admin: 08/20/17 12:48 Dose: 400 mg Ondansetron HCl (Zofran Inj) 4 mg IVP Q4 PRN PRN Reason: Nausea/Vomiting Pantoprazole Sodium (Protonix Ec Tab) 40 mg PO DAILY [facility] Last Admin: 08/20/17 12:48 Dose: 40 mg Spironolactone (Aldactone) 25 mg PO BID [facility] Physical Exam - Constitutional Appears: No Acute Distress - Head Exam Head Exam: ATRAUMATIC, NORMAL INSPECTION, NORMOCEPHALIC - Eye Exam Eye Exam: EOMI, Normal appearance, PERRL - ENT Exam ENT Exam: Mucous Membranes Moist - Neck Exam Neck exam: Positive for: Normal Inspection - Respiratory Exam Respiratory Exam: Clear to Auscultation Bilateral. absent: Rales, Rhonchi - Cardiovascular Exam Cardiovascular Exam: JVD, +S1, +S2 - GI/Abdominal Exam GI & Abdominal Exam: Soft. absent: Organomegaly, Tenderness - Extremities Exam Extremities exam: Positive for: normal inspection, pedal edema. Negative for: calf tenderness - Neurological Exam Neurological exam: Alert, Oriented x3 - Psychiatric Exam Psychiatric exam: Flat Affect - Skin Skin Exam: Normal Color, Warm Results - Vital Signs Recent Vital Signs: Last Vital Signs Temp 101.9 F H 08/20/17 12:00 Pulse 109 H 08/20/17 12:29 Resp 18 08/20/17 12:29 BP 120/54 L 08/20/17 12:48 Pulse Ox 98 08/20/17 08:00 - Labs Result Diagrams: 08/20/17 05:05 08/20/17 05:05 Labs: Laboratory Results - last 24 hr 08/20/17 07:23 Urine Color yellow Urine Appearance Slight-cloudy Urine pH 6.5 Ur Specific [place] 1.015 Urine Protein Trace H Urine Glucose (UA) Negative Urine Ketones Negative Urine Blood Negative Urine Nitrate Negative Urine Bilirubin Negative Urine Urobilinogen 0.2 Ur Leukocyte Esterase Trace H Urine RBC 0 - 2 Urine WBC 10 - 15 Ur Epithelial Cells 6 - 8 - EKG Data EKG Interpreted by: Myself EKG shows normal: Sinus rhythm (LVH with strain, no new changes from prior) - Imaging and Cardiology Chest x-ray Status: Image reviewed by me (No infiltrates or effusions, Single lead AICD) Assessment & Plan - Assessment and Plan (Free Text) Assessment: Severe stage D systolic heart failure, NICM: patient regularly follows up with [facility] advanced CHF clinic. AICD single lead L. upper chest * Patient reported shock from device EKG NSR, LVH with strain no new changes from prior Chronic Anemia, low MCV Normal creat and K+ and Mg= 2.0 Echo 07/18/17: > Severe LV systolic dysfunction with global hypokinesia Mild MR, Mod TR Moderate PULMONARY HTN Grade 1 Diastolic dysfunction with elevated LAP No evidence of suspicious veg or mass noted Cont CHF RX: Aldactone, coreg, lasix and milrinone Patient supposedly on ENTRESTO as OUTPATIENT she should continue to take this : --> Do not use ANGELA-I or ARB concurrently DVT prophylaxis Maintain f/u with CHF clinic at [facility] Plan: AICD eval to correlate sx's and device function. CP is non-cardiac: 1st trop negative known NICM.
[2017-08-20 15:14] LABS: IRON 30 ug/dL (45-180)
[2017-08-20] MEDS: Aztreonam 1 Gm in NS 100mL 100 ML IVPB SCH ×2 (15:19→21:10)
[2017-08-20 21:51] LABS: FOLATE 7.3 ng/mL
--- NOTE | 2017-08-20 22:39 | CP.PCM.CON ---
History of Present Illness - History of Present Illness History of Present Illness: Ms. Pauline Martinez nikki 52 y/o [place] woman with pmhx significant for HTN, ( presumably hereditary) cardiomhyopathy c/b CHF on chronic milrione drip vis R- sided piccline and AICD placement (on heart transplant list at [facility]) who presents after having been shocked by AICD several times in the setting of symptoms of dizzines. Patient has known iron defeicency. Has been told she has had anemia since her youth. Unclear why previously. Admits to on going menses which have heavy flow and occur twice a month. No other signs of bleeding . Originally scheduled for colo as outpatient previously. No family hx of colon cancer, bleeding, or malignancies. Brother, Mother, and sister all had heart issues and b/c of them. She has three children and seven grandchildren who are all healthy. Review of Systems - Constitutional Constitutional: As Per HPI - EENT Eyes: As Per HPI - Cardiovascular Cardiovascular: As Per HPI - Respiratory Respiratory: As Per HPI - Gastrointestinal Gastrointestinal: As Per HPI - Menstruation Menstruation: As Per HPI Past Patient History - Infectious Disease Hx of Infectious Diseases: None - Tetanus Immunizations Tetanus Immunization: Unknown - Past Social History Smoking Status: Never Smoked - CARDIAC Hx Pacemaker: No (PT DENIES) - PULMONARY Hx Chronic Obstructive Pulmonary Disease (COPD): Yes Hx Pneumonia: Yes Hx Sleep Apnea: Yes - NEUROLOGICAL Hx Paralysis: No - HEENT Hx HEENT Problems: Yes (Wears glasses.) - RENAL Hx Chronic Kidney Disease: No - ENDOCRINE/METABOLIC Hx Endocrine Disorders: No - HEMATOLOGICAL/ONCOLOGICAL Hx Blood Transfusions: Yes Hx Blood Transfusion Reaction: No - INTEGUMENTARY Hx Dermatological Problems: No - MUSCULOSKELETAL/RHEUMATOLOGICAL Hx Musculoskeletal Disorders: Yes - GASTROINTESTINAL Hx Gastrointestinal Disorders: Yes Hx Gastroesophageal Reflux: Yes HX Swallowing Problems: Yes - GENITOURINARY/GYNECOLOGICAL Hx Genitourinary Disorders: No - PSYCHIATRIC Hx Emotional Abuse: No Hx Physical Abuse: No Hx Substance Use: No - SURGICAL HISTORY Hx Cholecystectomy: Yes - ANESTHESIA Hx Anesthesia: Yes Hx Anesthesia Reactions: No Hx Malignant Hyperthermia: No Meds Allergies/Adverse Reactions: Allergies Allergy/AdvReac Type Severity Reaction Status Date / Time acetaminophen Allergy ANGIOEDEMA Verified 08/20/17 03:28 cefepime Allergy ANAPHYLAXIS Verified 08/20/17 03:28 - Medications Medications: Current Medications Carvedilol (Coreg) 25 mg PO BID [facility] Last Admin: 08/20/17 18:03 Dose: 25 mg Doxycycline Hyclate (Doryx) 100 mg PO Q12 [facility] PRN Reason: Protocol Stop: 08/29/17 22:01 Last Admin: 08/20/17 21:10 Dose: 100 mg Famotidine (Pepcid) 20 mg PO DAILY [facility] Last Admin: 08/20/17 12:48 Dose: 20 mg Furosemide (Lasix) 40 mg PO BID [facility] Last Admin: 08/20/17 18:05 Dose: 40 mg Milrinone Lactate/Dextrose (Primacor 20mg/100ml D5w) 100 mls @ 6.423 mls/hr IV .[id number] PRN; Protocol; 0.2 MCG/KG/MIN PRN Reason: TITRATE PER MD ORDER Last Admin: 08/20/17 09:45 Dose: 0.2 mcg/kg/min, 6.423 mls/hr Aztreonam (Azactam 1 Gm) 100 mls @ 100 mls/hr IVPB Q8 [facility] PRN Reason: Protocol Stop: 08/29/17 14:01 Last Admin: 08/20/17 21:10 Dose: 100 mls/hr Vancomycin HCl (Vancomycin 1gm) 1 gm in 250 mls @ 167 mls/hr IVPB Q12H [facility] PRN Reason: Protocol Stop: 08/29/17 12:31 Last Admin: 08/20/17 12:55 Dose: 167 mls/hr Ibuprofen (Motrin Tab) 200 mg PO Q6H PRN PRN Reason: Fever >100.4 F Last Admin: 08/20/17 19:58 Dose: 200 mg Magnesium Oxide (Mag-Ox) 400 mg PO BID [facility] Last Admin: 08/20/17 18:03 Dose: 400 mg Ondansetron HCl (Zofran Inj) 4 mg IVP Q4 PRN PRN Reason: Nausea/Vomiting Pantoprazole Sodium (Protonix Ec Tab) 40 mg PO DAILY [facility] Last Admin: 08/20/17 12:48 Dose: 40 mg Spironolactone (Aldactone) 25 mg PO BID [facility] Last Admin: 08/20/17 18:09 Dose: 25 mg Physical Exam - Head Exam Head Exam: ATRAUMATIC, NORMAL INSPECTION, NORMOCEPHALIC - Respiratory Exam Respiratory Exam: Clear to Auscultation Bilateral, NORMAL BREATHING PATTERN - Cardiovascular Exam Cardiovascular Exam: REGULAR RHYTHM - Extremities Exam Extremities exam: Positive for: normal inspection Results - Vital Signs Recent Vital Signs: Last Vital Signs Temp 102.9 F H 08/20/17 20:58 Pulse 93 H 08/20/17 18:03 Resp 16 08/20/17 18:00 BP 106/85 08/20/17 18:05 Pulse Ox 99 08/20/17 18:00 - Labs Result Diagrams: 08/20/17 05:05 08/20/17 05:05 Labs: Laboratory Results - last 24 hr 08/20/17 07:23 Urine Color yellow Urine Appearance Slight-cloudy Urine pH 6.5 Ur Specific [place] 1.015 Urine Protein Trace H Urine Glucose (UA) Negative Urine Ketones Negative Urine Blood Negative Urine Nitrate Negative Urine Bilirubin Negative Urine Urobilinogen 0.2 Ur Leukocyte Esterase Trace H Urine RBC 0 - 2 Urine WBC 10 - 15 Ur Epithelial Cells 6 - 8 Assessment & Plan - Assessment and Plan (Free Text) Assessment: Ms. Pauline Martinez nikki 52 y/o [place] woman with pmhx significant for HTN, ( presumably hereditary) cardiomhyopathy c/b CHF on chronic milrione drip vis R- sided piccline and AICD placement (on heart transplant list at [facility]) who presents after having been shocked by AICD several times in the setting of symptoms of dizziness. Patent's history and labs are c/w iron defeciency. Agree to giving IV iron. Presumed source of blood loss is from menorrhagia. However, patient should get a colonsocopy as per general screening once she is medically stable as an outpatient. Avoid unecssary transfusions as possible. Would only transfuse if hgb <9 for now. Alfonso Carmona MD Oncology Service
--- NOTE | 2017-08-20 22:48 | CON ---
DATE: 08/20/2017 HISTORY OF PRESENT ILLNESS: This is a 52-year-old female, originally the patient is from [facility]. She has a history of hypertension, congestive heart failure, cardiomyopathy with a low ejection fraction which required an AICD, which was placed many years ago, history of chronic obstructive lung disease and GERD, history of recent Serratia bacteremia, which required a Port-a-Cath removal, with which the Serratia was recurrent. The patient also has history of Klebsiella bacteremia in the past and in 2015, the patient also had history of MRSA bacteremia and prior to that, the patient had Citrobacter bacteremia. The patient also with a history of Behcet's and now was admitted in the emergency room with chest pain, left sided. Also the patient has fever and chills. She denies any cough, shortness of breath, or headaches. No abdominal pain or diarrhea. No dysuria or frequency. PAST MEDICAL HISTORY: Significant for Behcet's, history of MRSA bacteremia, history of Klebsiella bacteremia, history of recurrence Serratia bacteremia requiring a Port-a-Cath removal, history of GERD, chronic obstructive lung disease, cardiomyopathy, congestive heart failure, hypertension. PAST SURGICAL HISTORY: Significant for the patient had upper endoscopy and lower colonoscopy. The patient had cholecystectomy. The patient had an AICD placed in 2011. The patient had a right chest Port-a-Cath placed 2-3 weeks ago. ALLERGIES: THE PATIENT IS ALLERGIC TO CEFEPIME IS DESCRIBED TYPE 1. THE PATIENT IS ALSO ALLERGIC TO ACETAMINOPHEN. MEDICATIONS AT HOME: Include the patient to be on Aldactone, prednisolone, Protonix. The patient is on IV milrinone, magnesium, Lasix, Pepcid, and carvedilol. PHYSICAL EXAMINATION GENERAL: The patient is in bed, no acute distress. VITAL SIGNS: Temperature of 101, heart rate of 107, blood pressure is 140/50, respiratory rate of 18. HEENT: Unremarkable. NECK: Supple. LUNGS: Decreased breath sounds. HEART: Normal S1 and S2. ABDOMEN: Soft and nontender. LABORATORY DATA: Laboratory examination reveals the patient's white count of 5.1, hemoglobin of 9, and platelets of 233. He had MCV of 73, 72% granulocytosis. Coagulation reveals INR of 0.9. Chemistries were entirely normal with mild decrease of CK. The patient's troponin is negative. LFTs were normal. Creatinine is 1.1. The patient's GFR is greater than 60. Urinalysis reveals the patient does have trace protein, trace leukocyte esterase, 10 to 15 wbc's. Review of the microbiology reveals the patient did have blood cultures on 07/17/2017 that was the last culture. On 06/15/2017 the patient had Serratia. On 06/13/2017 the patient had Serratia. In 09/2016, the patient had Klebsiella in the blood and in the urine, and in 06/2016 the patient had Staphylococcus aureus in the blood cultures, which was actually [place] sensitive Staphylococcus aureus, and another blood culture on 06/2016 were also positive for Staphylococcus aureus. The patient in 03/2016 had Citrobacter diversus in the blood cultures, which was [place] sensitive and in 11/2015 had Serratia marcescens, which was in the blood, which was [place] sensitive. ASSESSMENT AND PLAN: This is a 52-year-old female originally from [facility], with a history of hypertension, cardiomyopathy with low ejection fraction, on milrinone and IV at home through the Port-a-Cath, which was just placed three weeks ago with chronic obstructive lung disease, gastroesophageal reflux disease, history of recurrence Serratia bacteremia, history of Klebsiella bacteremia, history of Staphylococcus aureus bacteremia, and the patient with Bahcet's syndrome, and now presenting with new right-sided Port-a-Cath, which was placed three weeks ago with 101 fever and weakness, WHO IS ALLERGIC TO CEFEPIME, tachycardia, systemic inflammatory response syndrome must rule out bacteremia either from gram negative or gram positive, must also rule out underlying endocarditis and in face of cefepime allergy, which is type 1, we will treat the patient with vancomycin, Azactam,and Zithromax. Chest x-ray is reported to be negative at this time and we will check on the blood cultures and urine cultures and if the blood cultures are positive, will need an echo and we will make further recommendations upon availability of initial results. Case discussed with Dr. Armstrong. We will see the patient this afternoon. Osmany Garza MD
--- NOTE | 2017-08-20 23:03 | CP.PCM.PN ---
Subjective - Date & Time of Evaluation Date of Evaluation: 08/20/17 Time of Evaluation: 22:59 - Subjective Subjective: Patient was seen because her Temp was 102*F. She is complaining of chills. States that she can not sleep. Has no other complaints. Medical record was reviewed. 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 This 52 year old woman was admitted chest pain, dizziness c/o AICD firing up . Has PMH of HTN,CHF,COPD, on milrinone drip, PNA, LASHONDA, refraction error, GERD, MRSA, Cholecystectomy. Objective - Vital Signs/Intake and Output Vital Signs (last 24 hours): Temp Pulse Resp BP Pulse Ox 102.9 F H 137 H 16 106/85 99 08/20/17 20:58 08/20/17 22:00 08/20/17 18:00 08/20/17 18:05 08/20/17 18:00 Intake and Output: 08/20/17 08/21/17 18:59 06:59 Intake Total 679 Output Total 300 Balance 379 - Medications Medications: Current Medications Carvedilol (Coreg) 25 mg PO BID [facility] Last Admin: 08/20/17 18:03 Dose: 25 mg Doxycycline Hyclate (Doryx) 100 mg PO Q12 [facility] PRN Reason: Protocol Stop: 08/29/17 22:01 Last Admin: 08/20/17 21:10 Dose: 100 mg Famotidine (Pepcid) 20 mg PO DAILY [facility] Last Admin: 08/20/17 12:48 Dose: 20 mg Furosemide (Lasix) 40 mg PO BID [facility] Last Admin: 08/20/17 18:05 Dose: 40 mg Milrinone Lactate/Dextrose (Primacor 20mg/100ml D5w) 100 mls @ 6.423 mls/hr IV .[id number] PRN; Protocol; 0.2 MCG/KG/MIN PRN Reason: TITRATE PER MD ORDER Last Admin: 08/20/17 09:45 Dose: 0.2 mcg/kg/min, 6.423 mls/hr Aztreonam (Azactam 1 Gm) 100 mls @ 100 mls/hr IVPB Q8 [facility] PRN Reason: Protocol Stop: 08/29/17 14:01 Last Admin: 08/20/17 21:10 Dose: 100 mls/hr Vancomycin HCl (Vancomycin 1gm) 1 gm in 250 mls @ 167 mls/hr IVPB Q12H [facility] PRN Reason: Protocol Stop: 08/29/17 12:31 Last Admin: 08/20/17 12:55 Dose: 167 mls/hr Ibuprofen (Motrin Tab) 200 mg PO Q6H PRN PRN Reason: Fever >100.4 F Last Admin: 08/20/17 19:58 Dose: 200 mg Magnesium Oxide (Mag-Ox) 400 mg PO BID [facility] Last Admin: 08/20/17 18:03 Dose: 400 mg Ondansetron HCl (Zofran Inj) 4 mg IVP Q4 PRN PRN Reason: Nausea/Vomiting Pantoprazole Sodium (Protonix Ec Tab) 40 mg PO DAILY [facility] Last Admin: 08/20/17 12:48 Dose: 40 mg Spironolactone (Aldactone) 25 mg PO BID [facility] Last Admin: 08/20/17 18:09 Dose: 25 mg - Labs Labs: PT 10.2 Seconds (9.9-11.8) 08/20/17 05:05 INR 0.94 (0.93-1.08) 08/20/17 05:05 APTT 27.8 Seconds (23.7-30.8) 08/20/17 05:05 Most Recent Lab Values WBC 5.1 10^3/ul (4.5-11.0) 08/20/17 05:05 RBC 4.22 10^6/uL (3.5-6.1) 08/20/17 05:05 Hgb 9.7 g/dL (12.0-16.0) L 08/20/17 05:05 Hct 31.2 % (36.0-48.0) L 08/20/17 05:05 MCV 73.9 fl (80.0-105.0) L 08/20/17 05:05 MCH 23.0 pg (25.0-35.0) L 08/20/17 05:05 MCHC 31.1 g/dl (31.0-37.0) 08/20/17 05:05 RDW 18.4 % (11.5-14.5) H 08/20/17 05:05 Plt Count 233 10^3/uL (120.0-450.0) 08/20/17 05:05 MPV 9.6 fl (7.0-11.0) 08/20/17 05:05 Gran % 72.9 % (50.0-68.0) H 08/20/17 05:05 Lymph % (Auto) 17.0 % (22.0-35.0) L 08/20/17 05:05 [place] % (Auto) 7.5 % (1.0-6.0) H 08/20/17 05:05 Eos % (Auto) 2.4 % (1.5-5.0) 08/20/17 05:05 Baso % (Auto) 0.2 % (0.0-3.0) 08/20/17 05:05 Gran # 3.68 (1.4-6.5) 08/20/17 05:05 Lymph # 0.9 (1.2-3.4) L 08/20/17 05:05 [place] # 0.4 (0.1-0.6) 08/20/17 05:05 Eos # 0.1 (0.0-0.7) 08/20/17 05:05 Baso # 0.01 K/mm3 (0.0-2.0) 08/20/17 05:05 PT 10.2 Seconds (9.9-11.8) 08/20/17 05:05 INR 0.94 (0.93-1.08) 08/20/17 05:05 APTT 27.8 Seconds (23.7-30.8) 08/20/17 05:05 Sodium 142 mmol/L (132-148) 08/20/17 05:05 Potassium 3.6 mmol/L (3.6-5.0) 08/20/17 05:05 Chloride 106 mmol/L (98-107) 08/20/17 05:05 Carbon Dioxide 26 mmol/L (21-33) 08/20/17 05:05 Anion Gap 14 (10-20) 08/20/17 05:05 BUN 18 mg/dL (7-21) 08/20/17 05:05 Creatinine 1.1 mg/dL (0.7-1.2) 08/20/17 05:05 Est GFR ( Amer) > 60 08/20/17 05:05 Est GFR (Non-Af Amer) 52 08/20/17 05:05 Random Glucose 101 mg/dL (70-110) 08/20/17 05:05 Calcium 9.2 mg/dL (8.4-10.5) 08/20/17 05:05 Magnesium 2.0 mg/dL (1.7-2.2) 08/20/17 05:05 Iron 30 ug/dL (45-180) L 08/20/17 06:00 TIBC 403 ug/dL (265-497) 08/20/17 06:00 % Saturation 7 % (20-55) L 08/20/17 06:00 Total Bilirubin 0.5 mg/dL (0.2-1.3) 08/20/17 05:05 AST 35 U/L (14-36) 08/20/17 05:05 ALT 23 U/L (7-56) 08/20/17 05:05 Alkaline Phosphatase 86 U/L (38-126) 08/20/17 05:05 Lactate Dehydrogenase 545 U/L (333-699) 08/20/17 05:05 Total Creatine Kinase 30 U/L (35-230) L 08/20/17 05:05 Troponin I < 0.01 ng/mL 08/20/17 05:05 Total Protein 7.3 g/dL (5.8-8.3) 08/20/17 05:05 Albumin 3.9 g/dL (3.0-4.8) 08/20/17 05:05 Globulin 3.4 gm/dL 08/20/17 05:05 Albumin/Globulin Ratio 1.1 (1.1-1.8) 08/20/17 05:05 Vitamin B12 383 pg/mL (239-931) 08/20/17 06:00 Folate 7.3 ng/mL 08/20/17 06:00 Urine Color yellow (YELLOW) 08/20/17 07:23 Urine Appearance Slight-cloudy (CLEAR) 08/20/17 07:23 Urine pH 6.5 (4.7-8.0) 08/20/17 07:23 Ur Specific [place] 1.015 (1.005-1.035) 08/20/17 07:23 Urine Protein Trace mg/dL (<30 mg/dL) H 08/20/17 07:23 Urine Glucose (UA) Negative mg/dL (NEGATIVE) 08/20/17 07:23 Urine Ketones Negative mg/dL (NEGATIVE) 08/20/17 07:23 Urine Blood Negative (NEGATIVE) 08/20/17 07:23 Urine Nitrate Negative (NEGATIVE) 08/20/17 07:23 Urine Bilirubin Negative (NEGATIVE) 08/20/17 07:23 Urine Urobilinogen 0.2 E.U./dL (<1 E.U./dL) 08/20/17 07:23 Ur Leukocyte Esterase Trace Hal[place]/uL (NEGATIVE) H 08/20/17 07:23 Urine RBC 0 - 2 /hpf (0-2) 08/20/17 07:23 Urine WBC 10 - 15 /hpf (0-6) 08/20/17 07:23 Ur Epithelial Cells 6 - 8 /hpf (0-5) 08/20/17 07:23 - Constitutional Appears: Well, No Acute Distress - Head Exam Head Exam: ATRAUMATIC, NORMAL INSPECTION, NORMOCEPHALIC - Eye Exam Eye Exam: Normal appearance - ENT Exam ENT Exam: Normal External Ear Exam - Neck Exam Neck Exam: Normal Inspection - Respiratory Exam Respiratory Exam: NORMAL BREATHING PATTERN - Cardiovascular Exam Cardiovascular Exam: absent: JVD - GI/Abdominal Exam GI & Abdominal Exam: absent: Distended - Rectal Exam Rectal Exam: Deferred - Exam Additional comments: Deferred. - Extremities Exam Extremities Exam: Normal Inspection - Back Exam Back Exam: NORMAL INSPECTION - Neurological Exam Neurological Exam: Alert, Oriented x3 - Psychiatric Exam Psychiatric exam: Normal Affect, Normal Mood - Skin Skin Exam: Normal Color Assessment and Plan - Assessment and Plan (Free Text) Assessment: Fever. Adjustment insomnia. Chest pain. HTN. CHF. COPD. Cardiomyopathy. LASHONDA. GERD. Plan: Motrin 800 mg PO stat. Benadryl 25 mg PO stat. Continue present management.
--- NOTE | 2017-08-21 00:51 | HP ---
CHIEF COMPLAINTS: Chest pain, feeling fatigue and tired. HISTORY OF PRESENT ILLNESS: Ms. Pauline Martinez is 52-year-old my private patient with past medical history of hypertension, congestive heart failure, on chronic milrinone drip via right-sided PICC line, and had AICD placement, came to the emergency room complaining about chest pain. The patient states that she was shocked three times by her AICD tonight and developed left-sided chest pain with associated dizziness and shortness of breath. The patient noted that she is chronically anemic and received IV iron infusion in the past. The patient was recently see in my office. Because her hemoglobin was low, we referred her to the pharmacy tech customer service and ordered iron infusion. The patient denied fever, chills, nausea, vomiting, during initial admission, but later on, nurseTish called me that the patient has now fever. Then we called a consult with Dr. Garza, did blood culture and septic workup, had lots of time discussion done with Dr. Garza also. PAST MEDICAL HISTORY: COPD, pneumonia, sleep apnea, anemia, history of blood transfusion on iron infusion, gastroesophageal reflux disease, Behcet's disease. FAMILY HISTORY: Noncontributory. HABITS: Never smoked. No drugs. No ethanol. ALLERGIES: THE PATIENT IS ALLERGIC TO ACETAMINOPHEN AND CEFEPIME. HOME MEDICATIONS: Lasix, Coreg, Aldactone, prednisone, magnesium oxide, Protonix, milrinone drip. REVIEW OF SYSTEMS: The patient seen and examined at bedside, having fever, shortness of breath, getting better, chest pain, getting better. No abdominal pain, diarrhea, nausea or vomiting. No dysuria, frequency, hematuria, urinary output change. No back pain, neck pain. No rash. No dizziness at the time of visit. PHYSICAL EXAMINATION: VITAL SIGNS: Temperature 98.5, pulse 89, respiratory rate 16, blood pressure 133/50, pulse oximetry 96. HEENT: Head; normocephalic and atraumatic. Eyes; PERRLA. Extraocular muscles are intact. Conjunctivae are clear. Nose is patent. Mucous membranes are moist. NECK: Supple. No carotid bruits, JVD or thyromegaly. CHEST: Bilaterally symmetrical. HEART: S1 and S2 positive. LUNGS: Clear to auscultation. ABDOMEN: Soft. Bowel sounds positive. No organomegaly. EXTREMITIES: No edema. No cyanosis. NEUROLOGIC: The patient is awake and alert. Moving all four extremities. No focal deficits. LABORATORY DATA: White blood cells 5.1, hemoglobin 9.7, hematocrit 31.2, platelets 233. Sodium 142, potassium 3.6, BUN 18, creatinine 1.1, glucose 101. ASSESSMENT AND PLAN: Ms. Pauline Martinez, 52-year-old lady with anemia, came with chest pain on the left side with dizziness, states that she was shocked three times by her automated implantable cardioverter-defibrillator tonight. The patient has congestive heart failure and is on chronic milrinone drip via right-sided PICC line, and have automated implantable cardioverter-defibrillator placement. She is on the waiting list for heart transplant in [facility]. Her resident in diagnostic radiology in [facility] with Dr. Kay, history of multiple time sepsis due to Port-A-Cath or PICC lines. Now, she has again fever, rule out sepsis, Behcet's disease, getting prednisone, anemia, multiple time had blood transfusion, gastroesophageal reflux disease, dyspepsia, cholecystectomy. We admitted the patient, started on milrinone drip, add home medications. Put consult with her resident in diagnostic radiology and Infectious Disease. THE PATIENT IS ALLERGIC WITH TYLENOL. Then ibuprofen given for fever. Dr. Garza started the patient on doxycycline and aztreonam. The patient is given spironolactone, Coreg, Lasix, magnesium replacement, Pepcid for gastrointestinal prophylaxis. Given dose of vancomycin also by Dr. Garza. Continue present treatment. Repeat labs. We will follow up. Carisa Armstrong MD
--- NOTE | 2017-08-21 04:25 | CON ---
REFERRING PHYSICIAN: Dr. Armsrtong. REASON FOR CONSULT: Chronic lung disease, cardiomyopathy and shortness of breath. HISTORY OF PRESENT ILLNESS: This is a 52-year-old female, well known to me from previous admissions, has a multiple medical issues, main of which is a Behcet disease, steroids dependent, cardiomyopathy, hypertension, AICD, milrinone dependent, was shocked 3 times today, has a near syncopal episode, came into emergency room and was admitted for further workup. Recently had a sleep study done, which was negative for obstructive sleep apnea syndrome. Denied any cough. No short of breath with exertion. No nausea, no vomiting, no diarrhea. No leg pain or leg swelling. PAST MEDICAL HISTORY: Cardiomyopathy with LV ejection fraction of about 20% to 25%, has AICD, milrinone dependent, hypertension, Behcet disease, steroids dependent. ALLERGIES: TYLENOL AND CEFEPIME. MEDICATIONS: She is on Aldactone 25 mg twice a day, Azactam 1 g IV q.8 hours, Coreg 25 mg twice a day, doxycycline 100 mg q.12 hours, Lasix 40 mg twice a day, magnesium oxide 400 mg twice a day, Motrin 200 mg q.6 hours p.r.n., Pepcid 20 mg daily, Primacor IV drip, Protonix 40 mg daily, vancomycin 1 g IV q.12 hours, Zofran p.r.n. basis. REVIEW OF SYSTEMS: No headache. No rhinitis. Sleepy and tired. Chest soreness. No nausea. No vomiting. No diarrhea. Has had some leg swelling. PHYSICAL EXAMINATION: GENERAL: Lying in the bed, in no acute distress. Family at bedside. VITAL SIGNS: Temperature is 99.6, heart rate 93, respiratory rate is 20, blood pressure 106/85 and pulse ox 99% on nasal cannula. HEENT: Moist mucous membranes. Crowded airway. Mallampati score is IV. NECK: Supple. No JVD. LUNGS: Fair airflow with few rhonchi. HEART: S1 and S2. ABDOMEN: Soft, nontender. No organomegaly. EXTREMITIES: No edema. NEUROLOGIC: Sleepy, arousable. Follow simple commands. LABORATORY DATA: Shows hemoglobin 9.7, hematocrit 31.2, WBC 5.1 and platelet count is 233. INR is 0.94, PTT is 28. Sodium 142, potassium 3.6, chloride 106, bicarbonate 26, BUN 18, creatinine 1.1, glucose 101, calcium 9.2, magnesium 2.0, iron 30. AST 35, ALT 23, alkaline phosphatase is 86, troponin is less than 0.01. Albumin is 3.9. IMPRESSION AND PLAN: Severe cardiomyopathy with left ventricular ejection fraction 20% to 25%, Primacor dependent, status post automatic implantable cardioverter-defibrillator firing. We will get Cardiology consult to interrogate her AICD, electrolyte to be normal. She had a recent sleep study done which is negative for sleep apnea syndrome. Also has a history of recurrent line sepsis, history of Behcet disease, steroid dependent, chronic lung disease, anemia. Pulmonary point of view, doing okay. Cardiology consult, interrogation of AICD, keep head at 45 degrees, bronchodilator, continue milrinone drip. Followup electrolytes. Thank you and we will follow with you. Cruz Teran MD
[2017-08-21] MEDS: Aztreonam 1 Gm in NS 100mL 100 ML IVPB SCH ×3 (05:08→23:11)
[2017-08-21 05:57] LABS: HEMATOCRIT 28.5 % (36.0-48.0); MEAN CELL VOLUME 73.3 fl (80.0-105.0); MEAN CORPUSCULAR HEMOGLOBIN 22.9 pg (25.0-35.0); MEAN CORPUSCULAR HGB CONC 31.2 g/dl (31.0-37.0); RED CELL DISTRIBUTION WIDTH 18.1 % (11.5-14.5); WHITE BLOOD COUNT 18.9 10^3/ul (4.5-11.0)
[2017-08-21 06:02] LABS: CALCIUM 8.5 mg/dL (8.4-10.5); POTASSIUM 3.6 mmol/L (3.6-5.0)
[2017-08-21] MEDS: Pantoprazole 40 mg EC Tab PO SCH (10:02)
[2017-08-21] MEDS: Magnesium Oxide 400 mg Tab UD PO SCH ×2 (10:02→18:47)
[2017-08-21] MEDS ORDERED: DAPTOmycin 500 mg Inj (Cubicin) IV ONE (10:30)
--- NOTE | 2017-08-21 12:27 | CARD ---
APPROVED REPORT EKG Measurement Heart [id number] <Conclusion> Normal sinus rhythm Minimal voltage criteria for LVH, may be normal variant T wave abnormality, consider lateral ischemia Prolonged QT Abnormal ECG
[2017-08-21] MEDS ORDERED: Sodium Chloride 0.9% 250 ML IV STA (12:51)
--- NOTE | 2017-08-21 14:06 | CP.PCM.PN ---
Subjective - Date & Time of Evaluation Date of Evaluation: 08/21/17 Time of Evaluation: 11:55 - Subjective Subjective: Patient is refusing her antibiotics. She feels that the antibiotics are the ones that are giving her fevers. She had fevers last night but none this morning. Objective - Vital Signs/Intake and Output Vital Signs (last 24 hours): Temp Pulse Resp BP Pulse Ox 98.5 F 95 H 20 77/41 L 97 08/21/17 06:00 08/21/17 09:59 08/21/17 06:00 08/21/17 10:02 08/21/17 06:00 Intake and Output: 08/21/17 08/21/17 06:59 18:59 Intake Total 776 Balance 776 - Medications Medications: Current Medications Carvedilol (Coreg) 25 mg PO BID [facility] Last Admin: 08/21/17 09:59 Dose: Not Given Daptomycin (Cubicin) 640 mg 6 mg/kg (640 mg) IV ONCE ONE PRN Reason: Protocol Stop: 08/21/17 10:31 Doxycycline Hyclate (Doryx) 100 mg PO Q12 [facility] PRN Reason: Protocol Stop: 08/29/17 22:01 Last Admin: 08/21/17 10:02 Dose: 100 mg Famotidine (Pepcid) 20 mg PO DAILY [facility] Last Admin: 08/21/17 10:02 Dose: 20 mg Furosemide (Lasix) 40 mg PO BID [facility] Last Admin: 08/21/17 10:02 Dose: Not Given Milrinone Lactate/Dextrose (Primacor 20mg/100ml D5w) 100 mls @ 6.423 mls/hr IV [id number] PRN; Protocol; 0.2 MCG/KG/MIN PRN Reason: TITRATE PER MD ORDER Last Admin: 08/20/17 23:34 Dose: 0.2 mcg/kg/min, 6.423 mls/hr Aztreonam (Azactam 1 Gm) 100 mls @ 100 mls/hr IVPB Q8 [facility] PRN Reason: Protocol Stop: 08/29/17 14:01 Last Admin: 08/21/17 05:08 Dose: Not Given Ibuprofen (Motrin Tab) 200 mg PO Q6H PRN PRN Reason: Fever >100.4 F Last Admin: 10/15/17 19:58 Dose: 200 mg Magnesium Oxide (Mag-Ox) 400 mg PO BID [facility] Last Admin: 08/21/17 10:02 Dose: 400 mg Ondansetron HCl (Zofran Inj) 4 mg IVP Q4 PRN PRN Reason: Nausea/Vomiting Pantoprazole Sodium (Protonix Ec Tab) 40 mg PO DAILY [facility] Last Admin: 08/21/17 10:02 Dose: 40 mg Spironolactone (Aldactone) 25 mg PO BID [facility] Last Admin: 08/21/17 09:59 Dose: Not Given - Labs Labs: 08/21/17 05:37 08/21/17 05:37 PT 10.2 Seconds (9.9-11.8) 08/20/17 05:05 INR 0.94 (0.93-1.08) 08/20/17 05:05 APTT 27.8 Seconds (23.7-30.8) 08/20/17 05:05 - Constitutional Appears: Non-toxic, No Acute Distress - Head Exam Head Exam: NORMAL INSPECTION - ENT Exam ENT Exam: Mucous Membranes Moist - Neck Exam Neck Exam: absent: Lymphadenopathy, Meningismus - Respiratory Exam Respiratory Exam: Decreased Breath Sounds Additional comments: right anterior chest wall port-a-cath in place - Cardiovascular Exam Cardiovascular Exam: +S1, +S2 - GI/Abdominal Exam GI & Abdominal Exam: Soft. absent: Tenderness Assessment and Plan - Assessment and Plan (Free Text) Plan: Assessment systemic inflammatory response syndrome with fevers, with sepsis due to gram negative bacilli bacteremia in patient with a new port-a-cath placed 3 weeks ago new onset acute renal failure history of sepsis due to right sided healthcare-associated pneumonia (07/2017) history of sepsis due to Serratia bacteremia probably PICC-line related S/P removal of the PICC line - blood cx are now clear since line removal - PICC line has been replaced last month (2016) history of Klebsiella bacteremia from UTI (2015) history of Methicillin-sensitive Staph aureus bacteremia, persistent from infected tunneled catheter infection in the right anterior chest wall S/P removal (2015) CHF with end-stage cardiomyopathy Coronary artery disease DM S/P AICD placement Plan will discontinue Vancomycin because of the renal failure, continue Azactam day 2 ; follow up identification and sensitivities of the gram negative bacilli in the blood; will follow up 2D echo; will repeat blood cx tomorrow; patient is refusing antibiotics despite adequate explanation will also get ultrasound of the port area to rule out DVT will monitor clinically
[2017-08-21] MEDS ORDERED: Amikacin 500 MG in Dextrose 5% In Water 100 ML IVPB ONE (15:18)
[2017-08-21] MEDS: Milrinone 20mg/100ml D5W 100 ML IV PRN (16:29)
--- NOTE | 2017-08-22 00:36 | PN ---
PULMONARY PROGRESS NOTE DATE: 08/21/2017 REFERRING PHYSICIAN: Dr. Armstrong. SUBJECTIVE: She is lying in the bed, head at 45 degree. Sleepy, arousable. Night was unremarkable. No cough. No sputum production. Chest pain is better. No nausea. No vomiting. No diarrhea. No leg pain or leg swelling. OBJECTIVE: GENERAL: No acute distress. VITAL SIGNS: Temperature 98, heart rate 85, respiratory rate is 20, blood pressure 77/41, pulse ox 97% on room air. T-max last night was 102.9. HEENT: Moist mucous membranes. Crowded airway. Mallampati score is IV. NECK: Supple. No JVD. LUNGS: Fair airflow with few rhonchi. HEART: S1 and S2. ABDOMEN: Soft and nontender. No organomegaly. EXTREMITIES: No edema. NEUROLOGIC: Awake and alert. Follows simple commands. MEDICATIONS: She is on Aldactone,which is on hold, Azactam 1 g IV q. 8 hours, Coreg is on hold, doxycycline 100 mg twice a day, Lasix is on hold, magnesium oxide 400 mg twice a day, Motrin 200 mg q. 6 hour p.r.n., gabapentin 200 mg at bedtime, Pepcid 20 mg daily, milrinone IV drips, Protonix 40 mg daily, Zofran p.r.n. basis. LABORATORY DATA: Shows hemoglobin 8.9, hematocrit 28.5, WBC 18.9, platelet is 173. INR 0.94. Sodium 136, potassium 3.6, chloride 104, bicarbonate 26, BUN 18, creatinine 2.0, glucose is 153. Hemoglobin A1c 6.6. Calcium 8.5, iron is 30. LDH is 65, B12 383, folate 7.3. TSH is 0.5. Microbiology; blood, gram stain one out of two shows gram-negative rods. IMPRESSION AND PLAN: Severe cardiomyopathy, left ventricular ejection fraction is 20% to 25%, Primacor dependent, has automatic implantable cardioverter-defibrillator. Recurrent sepsis, usually is a line sepsis, chronic lung disease, Behcet's disease, history of steroid use, and has hypotension, spoke to patient in detail. All the questions answered. We will her give Solu-Cortef 50 mg q. 8 hours, first dose now. She may have renal insufficiency, been on steroids for years. Antibiotics as per Infectious Disease. I spoke to nursing staff in detail about antibiotics. Discussed with the patient and important to get antibiotics. She expressed understanding. Thank you and we will follow with you. Cruz Teran MD
[2017-08-22] MEDS: Milrinone 20mg/100ml D5W 100 ML IV PRN ×2 (04:39→21:22)
[2017-08-22] MEDS: Aztreonam 1 Gm in NS 100mL 100 ML IVPB SCH ×3 (06:32→21:23)
[2017-08-22 06:37] LABS: HEMATOCRIT 29.6 % (36.0-48.0); MEAN CELL VOLUME 73.6 fl (80.0-105.0); MEAN CORPUSCULAR HEMOGLOBIN 22.4 pg (25.0-35.0); MEAN CORPUSCULAR HGB CONC 30.4 g/dl (31.0-37.0); RED CELL DISTRIBUTION WIDTH 18.3 % (11.5-14.5); WHITE BLOOD COUNT 8.2 10^3/ul (4.5-11.0)
[2017-08-22 06:57] LABS: CALCIUM 8.8 mg/dL (8.4-10.5); POTASSIUM 3.8 mmol/L (3.6-5.0)
--- NOTE | 2017-08-22 09:28 | PN ---
DATE: 08/21/2017 SUBJECTIVE: The patient is a 52-year-old female. The patient is seen and examined on the bedside. Looking comfortable. No nausea, vomiting, diarrhea. No hematuria. No hematochezia. Still getting fever. No shortness of breath. No chest pain. No palpitation. No headache. No dizziness. PHYSICAL EXAMINATION VITAL SIGNS: Temperature 98.2, pulse 80, blood pressure 91/43, respiratory rate 18, T-max 101.3. HEENT: Head is normocephalic, atraumatic. Eyes; PERRLA. Extraocular muscles intact. Conjunctivae clear. Nose patent. Mucous membrane moist. NECK: Supple. No carotid bruits. No JVD or thyromegaly. CHEST: Bilaterally symmetrical. HEART: S1 and S2 positive. LUNGS: Clear to auscultation. ABDOMEN: Soft. Bowel sounds positive. No organomegaly. EXTREMITIES: No edema. No cyanosis. NEUROLOGIC: The patient is awake and alert. Moving all four extremities. No focal deficit. MEDICATIONS: Aldactone, Azactam, Coreg, doxycycline, Lasix, magnesium oxide, Motrin, Neurontin, Pepcid, Protonix, and antibiotics. LABORATORY DATA: White blood cells 18.9, on admission is 5.1, hemoglobin is 8.9, hematocrit 28.5, platelets 173. Sodium 136, potassium 3.6, BUN 18, creatinine 2.0. Glucose 153, hemoglobin A1c 6.6, iron is 30 and iron saturation is 7, need iron infusion. ASSESSMENT: Ms. Pauline Martinez is a 52-year-old lady with leukocytosis, anemia, iron deficiency, need iron infusion, hyperglycemia, uncontrolled diabetes mellitus, Behcet's disease, severe cardiomyopathy with left ventricular ejection fraction of 20% to 25%, Primacor drip dependence, status post automatic implantable cardioverter-defibrillator firing. [employer] Former Automatic is on the case. Need interrogation of automatic implantable cardioverter-defibrillator. The patient has recent sleep study done, which was negative for apnea syndrome. History of multiple time sepsis from the lines, steroid dependency, chronic obstructive lung disease. We will continue monitoring, milrinone drip, seen by Infectious Disease, Dr. Krishan Childers, The patient was refusing Azactam and discussion done with Dr. Childers, Infectious Disease and plan discussed with the patient. Finally, she agreed. She is amenable. We will get amikacin, but we will be careful since she has acute renal failure, got one dose since introduce of Levaquin, since she has prolonged QT on EKG, we will monitor q. weekly by Infectious Disease. The patient has systemic inflammatory response syndrome with fever, with sepsis due to gram negative bacilli bacteremia, inpatient with new Port-A-Cath placed 3 weeks ago, new onset of acute renal failure, improved, history of sepsis due to right-sided healthcare-associated pneumonia, history of sepsis due to Serratia bacteremia probably PICC line related as per removal of the PICC line. PICC line was replaced on 06/2017, history of Klebsiella bacteremia from urinary tract infection in 09/2016. History of methicillin-resistant Staphylococcus aureus bacteremia, persistent infection, internal catheter infection in the right anterior chest wall, removal of breast in 2015, coronary artery disease. Dr. Childers discontinued vancomycin because of renal failure. PLAN: Continue Azactam, but the patient refused to take, Amikacin given. The patient need 2D echo. We will repeat blood cultures tomorrow. Agree to take antibiotics. Discussion done with the patient and patient's nursing staff. GI and DVT prophylaxis. Repeat labs. Carisa Armstrong MD
[2017-08-22] MEDS: Magnesium Oxide 400 mg Tab UD PO SCH ×2 (10:44→18:11)
[2017-08-22] MEDS: Pantoprazole 40 mg EC Tab PO SCH (10:45)
--- NOTE | 2017-08-22 11:40 | CON ---
DATE: 08/22/2017 ELECTROPHYSIOLOGY CONSULTATION REFERRING PHYSICIAN: Fernando Beauchamp MD REASONS FOR EVALUATION: 1. Syncope. 2. Status post [employer] single-lead AICD. 3. Dilated cardiomyopathy, systolic heart failure, currently on transplant evaluation. 4. Behcet's syndrome. HISTORY OF PRESENT ILLNESS: Ms. Pauline Martinez is a 52-year-old Afro-[place] female with a past medical history of syncope, ventricular tachycardia, diagnosed on [employer] implantable loop recorder; dilated cardiomyopathy, ejection fraction of 20%; systolic heart failure, on chronic milrinone therapy, status post Bi[employer]ronik single-lead AICD, who presents to [facility] with complaint of intermittent chest pain. The patient states they have been shocked 3 times by her AICD the night of admission, which is 08/20/2017. Subsequently developed left-sided chest pain and dizziness and shortness of breath. Of note, the patient is chronically anemic and had been receiving IV iron infusions in the past. The patient has been seen in my office recently, had been attempted to be contacted secondary to device related alerts; due to various issues, the patient has not been able to follow up in my office. In addition, the patient does follow actively according to her with Dr. [facility]rav [facility] in regards to chronic heart failure and possible transplant. The patient underwent AICD interrogation with findings to be discussed further on. Currently, the patient is at baseline feels well and is not having any issues. PAST MEDICAL HISTORY: Significant for COPD; pneumonia; Behcet's disease; sleep apnea; obesity; iron-deficiency anemia; gastroesophageal reflux disease; dilated cardiomyopathy with an ejection fraction of 20% by cath in 11/2015; hypertensive heart disease with heart failure and hypercholesterolemia. PAST SURGICAL HISTORY: Status post AICD implantation, right-sided port implantation for chronic infusion therapy. ALLERGIES: REACTION TO ACETAMINOPHEN WHICH RESULTS IN ANAPHYLAXIS. MEDICATIONS: Currently include amikacin, aztreonam, Coreg 25 mg b.i.d., doxycycline 100 mg p.o. q. 12 hours, Pepcid 20 mg p.o. daily, Lasix 40 mg daily, gabapentin, Zofran and Aldactone 25 mg p.o. b.i.d. LABORATORY DATA: On review of relevant lab work, the patient has a white count of 5.1, H and H of 9.7 and 31.2, platelets of 233. INR is 0.97. PT is 10.2. Potassium 3.6, BUN and creatinine is 18 and 1.0. Hemoglobin A1c is 6.6. LFTs are within normal limits. TSH is 0.5. PHYSICAL EXAMINATION: VITAL SIGNS: On examination, temperature is 98.4. Pulse rate of 78. Blood pressure is 76/42, unclear if this is real; prior to that, it was 90/54. GENERAL: She is a well-appearing, obese female, in no acute distress, able to speak in complete sentences. HEENT: Examination of her head is normocephalic and atraumatic. She is lying flat. She is able to sit up without any issues. CHEST: Clear to auscultation bilaterally. CARDIOVASCULAR EXAM: Regular rate and rhythm. S1, S2. No S3 or S4. AICD site in the left pectoral area is intact without any evidence of compromise to the wound. ABDOMEN: Soft, nontender, nondistended. Positive bowel sounds. EXTREMITIES: No cyanosis, clubbing or edema. On review of interrogation and e-mails and discussion with [employer] were also had, the findings are as follows: The patient has a [employer] Lumax 540 VR device, serial #[id number]. The patient with battery status of MOL-1 with a voltage of 2.96. The patient did in fact have 1 device discharge, not contemporaneous with her report, however, took place on 07/24/2017, which times out with the timing of her port revision which was done here at [facility]. She admits to experiencing a shock at that time. She did inform the physician at the time that she did indeed have a shock and this was not evaluated further. The patient did on the tracing have high-frequency, nonphysiologic signal on her device which did trigger the VF counter and ultimately did result in her unfortunately receiving a shock. In terms of further data from the device, the patient does appear to be compliant with her carvedilol, rates do appear to be somewhat controlled between the 80s to 130s. Other parameters which include lead impedance were noted to be within normal limits as were thresholds. On review of 12-lead EKG which was done on 08/20/2017, did show normal sinus rhythm at 87 beats per minute, normal P-wave morphology. ID interval does appear to be somewhat short at 156 milliseconds. There is voltage criteria for left ventricular hypertrophy resulting in left axis deviation. Normal R-wave progression is noted. Inversion of T waves are noted in the lateral leads. QT/QTc is noted to be 404 and 486 respectively. ASSESSMENT AND PLAN: 1. History of syncope with prior documented episodes of ventricular tachycardia which necessitated implantation of her original defibrillator. At this point, the patient did have symptoms, but no clearly related to arrhythmia on the device. Syncope may be secondary to orthostatic hypotension given the patient's low blood pressure. Adjustments to her medical therapy may be required. 2. Status post Bi[employer]ronik automatic implantable cardioverter-defibrillator which at this point appears to be functioning normal. As an outpatient, we were receiving messages through the system for a battery alert, this is unclear as far as why we were receiving these alerts. She is instructed to follow closely. The device will be re-interrogated prior to her discharge to ensure normal device function, normal battery life and normal lead function; if all these are satisfactory, the patient from an electrophysiology standpoint may be considered for discharge, to follow up closely as an outpatient; this has been discussed with the patient. 3. Dilated cardiomyopathy, systolic heart failure. The patient is to follow up closely with Dr. Sourav Kay from a heart failure standpoint as well as general cardiology followup is recommended. 4. History of Behcet's disease. 5. Hypokalemia. The patient should have a potassium of 4 or greater and continued compliance with Aldactone. 6. Hyperglycemia. The patient with an elevated glucose level, unclear if this represents insulin resistance in this obese woman. Further evaluation will be required by the primary. Thank you for allowing me to participate in the care of your patient, please do not hesitate to call for any questions with regards to her care. Greater than 90 minutes were spent in the patient evaluation, review of records, coordination with the cardiology team as well as extensive discussions with technical services with [employer]. Patrick Lugo MD cc: MD Carisa Darnell MD
--- NOTE | 2017-08-22 12:33 | CP.PCM.PN ---
Subjective - Date & Time of Evaluation Date of Evaluation: 08/22/17 Time of Evaluation: 10:35 - Subjective Subjective: Patient is still refusing Azactam but tolerated Amikacin. No fevers overnight but her BP still runs low intermittently. Not in distress. Awake and alert. Objective - Vital Signs/Intake and Output Vital Signs (last 24 hours): Temp Pulse Resp BP Pulse Ox 98.6 F 88 20 90/54 L 99 08/22/17 05:36 08/22/17 05:36 08/22/17 05:36 08/22/17 05:36 08/22/17 05:36 Intake and Output: 08/22/17 08/22/17 06:59 18:59 Intake Total 350 Balance 350 - Medications Medications: Current Medications Carvedilol (Coreg) 25 mg PO BID [facility] Last Admin: 08/21/17 18:46 Dose: Not Given Doxycycline Hyclate (Doryx) 100 mg PO Q12 [facility] PRN Reason: Protocol Stop: 08/29/17 22:01 Last Admin: 08/21/17 23:15 Dose: 100 mg Famotidine (Pepcid) 20 mg PO DAILY [facility] Last Admin: 08/21/17 10:02 Dose: 20 mg Furosemide (Lasix) 40 mg PO BID [facility] Last Admin: 08/21/17 18:47 Dose: Not Given Gabapentin (Neurontin) 200 mg PO HS [facility] PRN Reason: Protocol Last Admin: 08/21/17 23:14 Dose: 100 mg Hydrocortisone Sodium Succinate (Solu-Cortef) 50 mg IVP Q8 [facility] Last Admin: 08/22/17 06:37 Dose: 50 mg Milrinone Lactate/Dextrose (Primacor 20mg/100ml D5w) 100 mls @ 6.423 mls/hr IV .[id number] PRN; Protocol; 0.2 MCG/KG/MIN PRN Reason: TITRATE PER MD ORDER Last Admin: 08/22/17 04:39 Dose: 0.2 mcg/kg/min, 6.423 mls/hr Aztreonam (Azactam 1 Gm) 100 mls @ 100 mls/hr IVPB Q8 [facility] PRN Reason: Protocol Stop: 08/29/17 14:01 Last Admin: 08/22/17 06:32 Dose: Not Given Ibuprofen (Motrin Tab) 200 mg PO Q6H PRN PRN Reason: Fever >100.4 F Last Admin: 08/21/17 23:15 Dose: 200 mg Magnesium Oxide (Mag-Ox) 400 mg PO BID [facility] Last Admin: 08/21/17 18:47 Dose: 400 mg Ondansetron HCl (Zofran Inj) 4 mg IVP Q4 PRN PRN Reason: Nausea/Vomiting Pantoprazole Sodium (Protonix Ec Tab) 40 mg PO DAILY [facility] Last Admin: 08/21/17 10:02 Dose: 40 mg Spironolactone (Aldactone) 25 mg PO BID [facility] Last Admin: 08/21/17 18:46 Dose: Not Given - Labs Labs: 08/22/17 06:28 08/22/17 06:28 PT 10.2 Seconds (9.9-11.8) 08/20/17 05:05 INR 0.94 (0.93-1.08) 08/20/17 05:05 APTT 27.8 Seconds (23.7-30.8) 08/20/17 05:05 - Constitutional Appears: Non-toxic - Head Exam Head Exam: NORMAL INSPECTION - ENT Exam ENT Exam: Mucous Membranes Moist - Neck Exam Neck Exam: absent: Lymphadenopathy, Meningismus - Respiratory Exam Respiratory Exam: Decreased Breath Sounds Additional comments: right anterior chest wall port in place - Cardiovascular Exam Cardiovascular Exam: +S1, +S2 - GI/Abdominal Exam GI & Abdominal Exam: Soft. absent: Tenderness Assessment and Plan - Assessment and Plan (Free Text) Plan: Assessment systemic inflammatory response syndrome with fevers, with sepsis due to gram negative bacilli bacteremia in patient with a new port-a-cath placed 3 weeks ago new onset acute renal failure history of sepsis due to right sided healthcare-associated pneumonia (07/2017) history of sepsis due to Serratia bacteremia probably PICC-line related S/P removal of the PICC line - blood cx are now clear since line removal - PICC line has been replaced last month (2016) history of Klebsiella bacteremia from UTI (2015) history of Methicillin-sensitive Staph aureus bacteremia, persistent from infected tunneled catheter infection in the right anterior chest wall S/P removal (2015) CHF with end-stage cardiomyopathy Coronary artery disease DM S/P AICD placement Plan continue Azactam day 2 but patient is refusing - we have started Amikacin since she has tolerated this so far and is also refusing PO antibiotics - will be careful and monitor her kidney function (which is improving despite being on Amikacin); follow up identification and sensitivities of the gram negative bacilli in the blood; will follow up 2D echo; will repeat blood cx today from the port; patient is refusing antibiotics despite adequate explanation, and she understands that she may if she keeps refusing to get antibiotics - discussed with Dr. Ro will also get ultrasound of the port area to rule out DVT will continue to monitor clinically
--- NOTE | 2017-08-22 13:45 | CP.PCM.PN ---
Subjective - Date & Time of Evaluation Date of Evaluation: 08/22/17 Time of Evaluation: 13:42 - Subjective Subjective: Events reviewed. Wants to go home. Objective - Vital Signs/Intake and Output Vital Signs (last 24 hours): Temp Pulse Resp BP Pulse Ox 97.8 F 76 18 101/65 99 08/22/17 12:00 08/22/17 12:00 08/22/17 12:00 08/22/17 12:00 08/22/17 05:36 Intake and Output: 08/22/17 08/22/17 06:59 18:59 Intake Total 350 Output Total 200 Balance 350 -200 - Medications Medications: Current Medications Carvedilol (Coreg) 25 mg PO BID [facility] Last Admin: 08/22/17 10:41 Dose: 25 mg Famotidine (Pepcid) 20 mg PO DAILY [facility] Last Admin: 08/22/17 10:45 Dose: 20 mg Furosemide (Lasix) 40 mg PO BID [facility] Last Admin: 08/22/17 10:48 Dose: 40 mg Gabapentin (Neurontin) 200 mg PO HS [facility] PRN Reason: Protocol Last Admin: 08/21/17 23:14 Dose: 100 mg Hydrocortisone Sodium Succinate (Solu-Cortef) 50 mg IVP Q8 [facility] Last Admin: 08/22/17 06:37 Dose: 50 mg Milrinone Lactate/Dextrose (Primacor 20mg/100ml D5w) 100 mls @ 6.423 mls/hr IV .[id number] PRN; Protocol; 0.2 MCG/KG/MIN PRN Reason: TITRATE PER MD ORDER Last Admin: 08/22/17 04:39 Dose: 0.2 mcg/kg/min, 6.423 mls/hr Aztreonam (Azactam 1 Gm) 100 mls @ 100 mls/hr IVPB Q8 [facility] PRN Reason: Protocol Stop: 08/29/17 14:01 Last Admin: 08/22/17 06:32 Dose: Not Given Amikacin Sulfate 500 mg/ (Sodium Chloride) 102 mls @ 204 mls/hr IVPB Q12 [facility] PRN Reason: Protocol Last Admin: 08/22/17 10:54 Dose: 204 mls/hr Ibuprofen (Motrin Tab) 200 mg PO Q6H PRN PRN Reason: Fever >100.4 F Last Admin: 08/21/17 23:15 Dose: 200 mg Magnesium Oxide (Mag-Ox) 400 mg PO BID [facility] Last Admin: 08/22/17 10:44 Dose: 400 mg Ondansetron HCl (Zofran Inj) 4 mg IVP Q4 PRN PRN Reason: Nausea/Vomiting Pantoprazole Sodium (Protonix Ec Tab) 40 mg PO DAILY [facility] Last Admin: 08/22/17 10:45 Dose: 40 mg Spironolactone (Aldactone) 25 mg PO BID [facility] Last Admin: 08/22/17 10:39 Dose: 25 mg - Labs Labs: 08/22/17 06:28 08/22/17 06:28 PT 10.2 Seconds (9.9-11.8) 08/20/17 05:05 INR 0.94 (0.93-1.08) 08/20/17 05:05 APTT 27.8 Seconds (23.7-30.8) 08/20/17 05:05 Assessment and Plan - Assessment and Plan (Free Text) Assessment: Severe stage D systolic heart failure, NICM: patient regularly follows up with [facility] advanced CHF clinic. AICD single lead L. upper chest * Patient self reported shock from device which was secondary to bovie during permcath insertion. EKG NSR, LVH with strain no new changes from prior Chronic Anemia, low MCV Normal creat and K+ and Mg= 2.0 Echo 07/18/17: > Severe LV systolic dysfunction with global hypokinesia Mild MR, Mod TR Moderate PULMONARY HTN Grade 1 Diastolic dysfunction with elevated LAP No evidence of suspicious veg or mass noted Cont CHF RX: Aldactone, coreg, lasix and milrinone Patient supposedly on ENTRESTO as OUTPATIENT she should continue to take this : --> Do not use ANGELA-I or ARB concurrently DVT prophylaxis Maintain f/u with CHF clinic at [facility] Plan: AICD to re interrogate device to determine true battery status. There is no evidence of lead fracture or device malfunction. CP is non-cardiac: serial trop negative known NICM. She is cleared for d/c from a cardiac standpoint pending non critical re interrogation of device battery.
--- NOTE | 2017-08-23 05:29 | PN ---
DATE: 08/22/2017 PULMONARY PROGRESS NOTE REFERRING PHYSICIAN: Carisa Armstrong MD SUBJECTIVE: She is lying in the bed, head at 45 degree. Night was unremarkable. Feels better today. Blood pressure improved after steroid use. She did allow to get amikacin and refused Azactam this morning. No cough. No sputum production. No nausea. No vomiting. No diarrhea. No leg pain or leg swelling. OBJECTIVE: GENERAL: No acute distress. VITAL SIGNS: Temperature 99, heart rate 77, respiratory rate is 20, blood pressure 115/66, and pulse oximetry 99% on 2 L nasal cannula. HEENT: Moist mucous membranes. Crowded airway. Mallampati score is IV. NECK: Supple. No JVD. LUNGS: Fair airflow with few rhonchi. HEART: S1 and S2. ABDOMEN: Soft and nontender. No organomegaly. EXTREMITIES: No edema. NEUROLOGIC: Awake and alert. Follows simple commands. MEDICATIONS: She is on Aldactone 25 mg twice a day, amikacin 500 mg q.12 hours, Azactam 1 g q.8 hours, Benadryl p.r.n. basis, Coreg 25 mg twice a day, Lasix 40 mg twice a day, magnesium oxide 400 mg twice a day, Motrin 200 mg q.6 hours p.r.n., gabapentin 200 mg at bedtime, Pepcid 20 mg daily, IV milrinone, also Protonix 40 mg daily, Solu-Cortef 50 mg q.8 hours, and Zofran 4 mg q.4 hours p.r.n. LABORATORY DATA: Shows hemoglobin 9.0, hematocrit 29.6, WBC 8.2, and platelet is 207. Sodium 141, potassium 3.8, chloride 108, bicarbonate 28, BUN 20, creatinine 1.6, glucose is 148, calcium is 8.8, and total creatinine kinase is 65. Influenza A and B have been negative. Microbiology; blood culture 1 has a gram-negative anil, which is preliminary report. IMPRESSION AND PLAN: Severe cardiomyopathy, left ventricular ejection fraction about 20%, Primacor dependent, has automatic implantable cardioverter-defibrillator, recurrent sepsis, presently gram-negative rods in the blood, chronic obstructive lung disease, Behcet's disease, history of steroid use; resolving septic shock, responded well to antibiotics and steroids. I had a long discussion with the patient about the antibiotics, the side effects and benefits. Finally, she has agreed to take amikacin and Azactam. Continue steroids, inhaled bronchodilators, keep head at 45 degrees, gastric prophylaxis. Thank you and we will follow up with you. Cruz Teran MD
[2017-08-23] MEDS: Aztreonam 1 Gm in NS 100mL 100 ML IVPB SCH ×3 (06:29→21:55)
[2017-08-23] MEDS: Pantoprazole 40 mg EC Tab PO SCH (10:37)
[2017-08-23] MEDS: Magnesium Oxide 400 mg Tab UD PO SCH ×2 (10:37→18:00)
[2017-08-23 10:56] LABS: ALB/GLOB RATIO 1.2 (1.1-1.8); ALKALINE PHOSPHATASE 98 U/L (38-126); ALT/SGPT 33 U/L (7-56); AST/SGOT 24 U/L (14-36); BILIRUBIN,TOTAL 0.3 mg/dL (0.2-1.3); BLOOD UREA NITROGEN 19 mg/dL (7-21); CALCIUM 9.4 mg/dL (8.4-10.5); CARBON DIOXIDE 24 mmol/L (21-33); CHLORIDE 106 mmol/L (98-107); GFR AFRICAN-AMERICAN > 60; GLUCOSE,RANDOM 143 mg/dL (70-110); POTASSIUM 3.7 mmol/L (3.6-5.0); SODIUM 143 mmol/L (132-148)
--- NOTE | 2017-08-23 12:13 | CP.PCM.PN ---
Subjective - Date & Time of Evaluation Date of Evaluation: 08/23/17 Time of Evaluation: 10:20 - Subjective Subjective: Comfortable, no more fevers, no more chills, not in distress. Objective - Vital Signs/Intake and Output Vital Signs (last 24 hours): Temp Pulse Resp BP Pulse Ox 97.6 F 71 18 129/74 97 08/23/17 11:59 08/23/17 11:59 08/23/17 11:59 08/23/17 11:59 08/23/17 06:00 Intake and Output: 08/23/17 08/23/17 06:59 18:59 Intake Total 580 Balance 580 - Medications Medications: Current Medications Carvedilol (Coreg) 25 mg PO BID [facility] Last Admin: 08/23/17 10:36 Dose: 25 mg Diphenhydramine HCl (Benadryl) 25 mg PO TID PRN PRN Reason: Allergy symptoms Last Admin: 08/23/17 10:36 Dose: 25 mg Famotidine (Pepcid) 20 mg PO DAILY [facility] Last Admin: 08/23/17 10:36 Dose: 20 mg Furosemide (Lasix) 40 mg PO BID [facility] Last Admin: 08/23/17 10:37 Dose: 40 mg Gabapentin (Neurontin) 200 mg PO HS [facility] PRN Reason: Protocol Last Admin: 08/22/17 21:24 Dose: 200 mg Hydrocortisone Sodium Succinate (Solu-Cortef) 50 mg IVP Q8 [facility] Last Admin: 08/23/17 06:42 Dose: 50 mg Milrinone Lactate/Dextrose (Primacor 20mg/100ml D5w) 100 mls @ 6.423 mls/hr IV .[id number] PRN; Protocol; 0.2 MCG/KG/MIN PRN Reason: TITRATE PER MD ORDER Last Admin: 08/22/17 21:22 Dose: 0.2 mcg/kg/min, 6.423 mls/hr Aztreonam (Azactam 1 Gm) 100 mls @ 100 mls/hr IVPB Q8 [facility] PRN Reason: Protocol Stop: 08/29/17 14:01 Last Admin: 08/23/17 06:29 Dose: 100 mls/hr Amikacin Sulfate 500 mg/ (Sodium Chloride) 102 mls @ 204 mls/hr IVPB Q12 [facility] PRN Reason: Protocol Last Admin: 08/22/17 23:15 Dose: 204 mls/hr Ibuprofen (Motrin Tab) 200 mg PO Q6H PRN PRN Reason: Fever >100.4 F Last Admin: 08/22/17 18:11 Dose: 200 mg Magnesium Oxide (Mag-Ox) 400 mg PO BID [facility] Last Admin: 08/23/17 10:37 Dose: 400 mg Ondansetron HCl (Zofran Inj) 4 mg IVP Q4 PRN PRN Reason: Nausea/Vomiting Pantoprazole Sodium (Protonix Ec Tab) 40 mg PO DAILY [facility] Last Admin: 08/23/17 10:37 Dose: 40 mg Spironolactone (Aldactone) 25 mg PO BID [facility] Last Admin: 08/23/17 10:37 Dose: 25 mg - Labs Labs: 08/22/17 06:28 08/23/17 08:30 PT 10.2 Seconds (9.9-11.8) 08/20/17 05:05 INR 0.94 (0.93-1.08) 08/20/17 05:05 APTT 27.8 Seconds (23.7-30.8) 08/20/17 05:05 - Constitutional Appears: Non-toxic, No Acute Distress - Head Exam Head Exam: NORMAL INSPECTION - ENT Exam ENT Exam: Mucous Membranes Moist - Respiratory Exam Respiratory Exam: Decreased Breath Sounds Additional comments: right anterior chest wall port in place - Cardiovascular Exam Cardiovascular Exam: +S1, +S2 - GI/Abdominal Exam GI & Abdominal Exam: Soft. absent: Tenderness Assessment and Plan - Assessment and Plan (Free Text) Plan: Assessment systemic inflammatory response syndrome with fevers, with sepsis due to Klebsiella bacteremia in patient with a new port-a-cath placed 3 weeks ago (R/O port infection) new onset acute renal failure, improving history of sepsis due to right sided healthcare-associated pneumonia (07/2017) history of sepsis due to Serratia bacteremia probably PICC-line related S/P removal of the PICC line - blood cx are now clear since line removal - PICC line has been replaced last month (2016) history of Klebsiella bacteremia from UTI (2015) history of Methicillin-sensitive Staph aureus bacteremia, persistent from infected tunneled catheter infection in the right anterior chest wall S/P removal (2015) CHF with end-stage cardiomyopathy Coronary artery disease DM S/P AICD placement Plan continue Azactam day 3 - now patient is tolerating it - will hold off on Amikacin follow up repeat blood cx (one set from port, the other set from a peripheral vein) will also get ultrasound of the port area to rule out DVT may need to remove port - if port needs to be preserved, we may try antibiotic lock therapy together with Azactam) - will need 2 weeks of antibiotics from first negative blood cx will continue to monitor clinically
[2017-08-23 12:42] LABS: EOS % 0.1 % (1.5-5.0); GRAN % 80.6 % (50.0-68.0); HEMATOCRIT 27.9 % (36.0-48.0); LYMPH # 1.1 (1.2-3.4); LYMPH % 10.2 % (22.0-35.0); MEAN CELL VOLUME 73.8 fl (80.0-105.0); MEAN CORPUSCULAR HEMOGLOBIN 22.8 pg (25.0-35.0); MEAN CORPUSCULAR HGB CONC 30.8 g/dl (31.0-37.0); MEAN PLATELET VOLUME 9.5 fl (7.0-11.0); MONO % 9.1 % (1.0-6.0); RED CELL DISTRIBUTION WIDTH 18.3 % (11.5-14.5); WHITE BLOOD COUNT 11.2 10^3/ul (4.5-11.0)
[2017-08-23] MEDS: Milrinone 20mg/100ml D5W 100 ML IV PRN (14:13)
--- NOTE | 2017-08-23 18:17 | PN ---
SUBJECTIVE: The patient is seen and examined at the bedside, looks comfortable. There was confusion going on about antibiotics, cannot just tolerate the present status of antibiotics. Alternate antibiotics offered by Dr. Childers. I spoke to Dr. Childers, also spoke to the patient's nurse Oanh, and talked to the patient also. She was advised to take antibiotics with Solu-Cortef and Benadryl. No fever. No chills. OBJECTIVE: VITAL SIGNS: On physical examination, temperature 99.0, pulse 77, blood pressure 115/56, respiratory rate 20. HEENT: Head is normocephalic, atraumatic. Eyes, PERRLA. Extraocular muscles intact. Conjunctivae clear. Nose patent. Mucous membrane moist. NECK: Supple. No carotid bruits. No JVD or thyromegaly. CHEST: Bilaterally symmetrical. HEART: S1 and S2 positive. LUNGS: Clear to auscultation. ABDOMEN: Soft. Bowel sounds positive. No organomegaly. EXTREMITIES: No edema. No cyanosis. NEUROLOGIC: The patient is awake and alert, moving all 4 extremities, no focal deficit. MEDICATIONS: Aldactone, Amikacin, Azactam, Benadryl, Coreg, Lasix, magnesium oxide, Motrin, Neurontin, Pepcid, Protonix, Solu-Cortef, Zofran. LABORATORY DATA: White blood cells 8.2, yesterday was 18.9, hemoglobin 9.0, hematocrit 29.6, platelets 207. Sodium 141, potassium 3.8, BUN 20, creatinine 1.6, glucose 148. ASSESSMENT AND PLAN: Ms. Pauline Martinez is a 52-year-old lady with anemia, history of leukocytosis, improved, hyperchloremia, renal insufficiency, improving, creatinine got better from 2 to 1.6, hyperglycemia, diabetes mellitus, hemoglobin is 6.6, had systemic inflammatory response syndrome with fever with sepsis due to Gram-negative bacilli bacteremia in which a new Port-A-Cath was placed 3 weeks ago, new onset of acute renal failure, improving very slowly, history of multiple-time infections, congestive heart failure, end-stage cardiomyopathy, is in heart transplant list, coronary artery disease, status post automated implantable cardioverter-defibrillator placement. Now plan is to continue Azactam day #2, but the patient is refusing. As per Infectious Disease, we have started the patient on Amikacin since she has tolerated this so far and is also refusing p.o. antibiotics. We will be careful and monitor her kidney function which is improving despite being on Amikacin. Follow up in anticipation on sensitivity of the Gram-negative bacilli we got. We will follow up with 2D echo. We will repeat blood cultures and we will follow up on that. Labs at this time discussed with Dr. Childers and gave every type of explanation to the patient including me and Dr. Teran and the patient's nurse Oanh. The patient understands that she may if she will keep refusing antibiotics. We will also get an ultrasound of the port area to rule out deep vein thrombosis and we are giving the Solu-Cortef and Benadryl which are the antibiotics. Seen by the audiovisual production specialist Dr. Chuck Velazquez. The patient's actual audiovisual production specialist team is in [facility], Dr. Kay and his staff, for heart transplant. The patient has an AICD, single lead, in the upper chest. The patient self reported shocks of the device which were secondary to Bovie during the PermCath insertion. Chronic anemia, iron deficiency, getting iron infusion. History of chronic obstructive pulmonary disease, monitoring heart and effect of Aldactone, Coreg, and recent milrinone drip. Gastrointestinal and deep vein thrombosis prophylaxis. Repeat labs. We will follow. Carisa Armstrong MD
--- NOTE | 2017-08-23 18:49 | PN ---
DATE: 08/23/2017 PULMONARY PROGRESS NOTE REFERRING PHYSICIAN: Dr. Armstrong. SUBJECTIVE: The patient is lying on the bed, head at 45 degrees, just got back into the bed. She was sitting in the recliner chair. Night was unremarkable. No fever. No headache. No rhinitis. No nausea. No vomiting. No diarrhea. No leg pain or leg swelling. OBJECTIVE: GENERAL: No acute distress. VITAL SIGNS: Temperature 98, heart rate 71, respiratory rate is 21, blood pressure 129/74, and pulse ox 97% on nasal cannula. HEENT: Moist mucous membranes. Crowded airway. Mallampati score is IV. NECK: Supple. No JVD. LUNGS: Fair airflow with few rhonchi. HEART: S1 and S2. ABDOMEN: Soft and nontender. No organomegaly. EXTREMITIES: No edema. NEUROLOGIC: Awake and alert. Follows simple commands. MEDICATIONS: She is on Aldactone 25 mg daily, amikacin placed on hold today, Azactam 1 g IV q.8 hours, Benadryl 25 mg 3 times a day p.r.n., Coreg 25 mg twice a day, Lasix 40 mg twice a day, magnesium oxide 400 mg twice a day, Motrin 200 mg q.6 hours p.r.n., gabapentin 200 mg at bedtime, Pepcid 20 mg daily, IV Primacor, also Protonix 40 mg daily, Solu-Cortef 50 mg q.8 hours, and Zofran p.r.n. basis. LABORATORY DATA: Shows hemoglobin 8.6, hematocrit 27.9, WBC 11.2, platelet count is 229. Sodium 143, potassium 2.7, chloride 106, bicarbonate 24, BUN 19, creatinine 1.1, glucose is 143, calcium is 9.4, AST 24, ALT 33, alkaline phosphatase 98, albumin is 3.7. Microbiology has Klebsiella pneumoniae in the blood culture, sensitive to Azactam. IMPRESSION AND PLAN: Severe cardiomyopathy, left ventricular ejection fraction is 20%, Primacor dependent. Has AICD, recurrent sepsis, usually is line sepsis, has gram-negative which was sensitive to Azactam, chronic obstructive lung disease, Behcet disease, steroid dependent, status post septic shock, responding well to steroid. We will decrease Solu-Cortef to 50 mg twice a day. Continue antibiotics. Keep head elevated at 45 degrees, gastric and DVT prophylaxis. Thank you and we will follow with you. Cruz Teran MD
--- NOTE | 2017-08-24 02:17 | PN ---
DATE: The patient is a 52-year-old female. SUBJECTIVE: The patient was examined on the bedside, looking comfortable, was sitting on the chair, recliner. No change in the status. No fever, no chills. No nausea, vomiting or diarrhea. No headache or dizziness. No shortness of breath. PHYSICAL EXAMINATION VITAL SIGNS: Temperature 98, heart rate 71, respiratory rate 21, blood pressure 129/74, pulse oximetry 97% on nasal cannula. HEENT: Head is normocephalic and atraumatic. Eyes; PERRLA. Extraocular muscles intact. Conjunctivae clear. Nose is patent. Mucous membranes moist. NECK: Supple. No carotid bruit. No thyromegaly. CHEST: Bilaterally symmetrical. HEART: S1, S2 positive. LUNGS: Clear to auscultation. ABDOMEN: Soft. Bowel sounds present. No organomegaly. EXTREMITIES: No edema, no cyanosis. NEUROLOGIC: The patient is awake and alert. Follows simple commands. Moving all 4 extremities, oriented x3. MEDICATIONS: Aldactone, amikacin, Azactam, Benadryl, Coreg, Lasix, magnesium, Motrin, gabapentin, Pepcid, Primacor drip, Protonix, Solu-Cortef, and Zofran. LABORATORY DATA: Hemoglobin 8.6, hematocrit 27.9, white blood cells 11.2, platelets 229. Sodium 143, potassium 2.7, BUN 19, creatinine 1.1. AST 24, ALT 33. ASSESSMENT AND PLAN: Ms. Korey Carpenter is a 52-year-old female with severe cardiomyopathy, left ventricular ejection fraction of 20%, getting Primacor drip costantly had AICD, recurrent sepsis yielding from the lines, had gram-negative, which was sensitive to Azactam. Chronic obstructive lung disease, Behcet's disease, steroid dependency, status post septic shock, responding well to the steroids and antibiotics. Dr. Teran decreased the Solu-Cortef to 50 mg twice a day. Gastric and DVT prophylaxis. Reviewed Dr. Teran's notes. Reviewed Dr. Krishan Childers's notes also, Infectious Disease. Patient has systemic inflammatory response syndrome with fever, has Klebsiella bacteremia with new Port-A-Cath placed 3 weeks ago, rule out port infection. Renal insufficiency, improving. Coronary artery disease; continue Azactam day 3, now patient is tolerating it. We will hold off the amikacin as per Dr. Nickerson. Follow up repeat blood culture, one set from port and the other set from the peripheral vein. We will also get ultrasound of the port area to rule out DVT. May need to remove the port. If port needed to be preserved, we may try antibiotic lock therapy together with Azactam. Will need 2 weeks of antibiotics from first negative blood cultures. Continue monitoring clinically. According to the patient, she has to go several type of testing, appointment tomorrow with Dr. Kay in [facility]. I informed patient we are still waiting for the sensitivity. As soon as we will get sensitivity, we will try to discharge the patient with home infusions but if the patient wants can reschedule back , testing. We will follow up. Carisa Armstrong MD [facility]
[2017-08-24] MEDS: Aztreonam 1 Gm in NS 100mL 100 ML IVPB SCH ×2 (06:00→14:00)
[2017-08-24] MEDS: Milrinone 20mg/100ml D5W 100 ML IV PRN (06:09)
[2017-08-24] MEDS: Pantoprazole 40 mg EC Tab PO SCH (09:34)
[2017-08-24] MEDS: Magnesium Oxide 400 mg Tab UD PO SCH (09:34)
[2017-08-24 13:16] VITALS: BP 136/80; PULSE 79; RESP 18; TEMP 98.7; O2SAT 96
--- NOTE | 2017-08-24 14:07 | CP.PCM.PN ---
Subjective - Date & Time of Evaluation Date of Evaluation: 08/24/17 Time of Evaluation: 08:55 - Subjective Subjective: Comfortable, not in distress, afebrile. Feeling better. Objective - Vital Signs/Intake and Output Vital Signs (last 24 hours): Temp Pulse Resp BP Pulse Ox 98.4 F 63 20 155/85 H 97 08/24/17 06:00 08/24/17 06:00 08/24/17 00:01 08/24/17 06:00 08/23/17 06:00 Intake and Output: 08/24/17 08/24/17 06:59 18:59 Intake Total 967 Output Total 4 Balance 963 - Medications Medications: Current Medications Carvedilol (Coreg) 25 mg PO BID [facility] Last Admin: 08/23/17 18:00 Dose: 25 mg Diphenhydramine HCl (Benadryl) 25 mg PO TID PRN PRN Reason: Allergy symptoms Last Admin: 08/23/17 22:07 Dose: 25 mg Famotidine (Pepcid) 20 mg PO DAILY [facility] Last Admin: 08/23/17 10:36 Dose: 20 mg Furosemide (Lasix) 40 mg PO BID [facility] Last Admin: 08/23/17 18:00 Dose: 40 mg Gabapentin (Neurontin) 200 mg PO HS [facility] PRN Reason: Protocol Last Admin: 08/23/17 21:56 Dose: 200 mg Hydrocortisone Sodium Succinate (Solu-Cortef) 50 mg IVP Q12 [facility] Last Admin: 08/23/17 21:57 Dose: 50 mg Milrinone Lactate/Dextrose (Primacor 20mg/100ml D5w) 100 mls @ 6.423 mls/hr IV .[id number] PRN; Protocol; 0.2 MCG/KG/MIN PRN Reason: TITRATE PER MD ORDER Last Admin: 08/24/17 06:09 Dose: 0.2 mcg/kg/min, 6.423 mls/hr Aztreonam (Azactam 1 Gm) 100 mls @ 100 mls/hr IVPB Q8 [facility] PRN Reason: Protocol Stop: 08/29/17 14:01 Last Admin: 08/24/17 06:00 Dose: 100 mls/hr Amikacin Sulfate 500 mg/ (Sodium Chloride) 102 mls @ 204 mls/hr IVPB Q12 [facility] PRN Reason: Protocol Last Admin: 08/22/17 23:15 Dose: 204 mls/hr Ibuprofen (Motrin Tab) 200 mg PO Q6H PRN PRN Reason: Fever >100.4 F Last Admin: 08/22/17 18:11 Dose: 200 mg Magnesium Oxide (Mag-Ox) 400 mg PO BID [facility] Last Admin: 08/23/17 18:00 Dose: 400 mg Ondansetron HCl (Zofran Inj) 4 mg IVP Q4 PRN PRN Reason: Nausea/Vomiting Pantoprazole Sodium (Protonix Ec Tab) 40 mg PO DAILY [facility] Last Admin: 08/23/17 10:37 Dose: 40 mg Spironolactone (Aldactone) 25 mg PO BID [facility] Last Admin: 08/23/17 18:00 Dose: 25 mg - Labs Labs: 08/23/17 12:30 08/23/17 08:30 PT 10.2 Seconds (9.9-11.8) 08/20/17 05:05 INR 0.94 (0.93-1.08) 08/20/17 05:05 APTT 27.8 Seconds (23.7-30.8) 08/20/17 05:05 - Constitutional Appears: Non-toxic, No Acute Distress - Head Exam Head Exam: NORMAL INSPECTION - ENT Exam ENT Exam: Mucous Membranes Moist - Neck Exam Neck Exam: absent: Meningismus - Respiratory Exam Respiratory Exam: Decreased Breath Sounds Additional comments: right anterior chest wall port-a-cath in place - Cardiovascular Exam Cardiovascular Exam: +S1, +S2 - GI/Abdominal Exam GI & Abdominal Exam: Soft. absent: Tenderness Assessment and Plan - Assessment and Plan (Free Text) Assessment: Assessment systemic inflammatory response syndrome with fevers, with sepsis due to Klebsiella bacteremia in patient with a new port-a-cath placed 3 weeks ago (R/O port infection) new onset acute renal failure, improving history of sepsis due to right sided healthcare-associated pneumonia (07/2017) history of sepsis due to Serratia bacteremia probably PICC-line related S/P removal of the PICC line - blood cx are now clear since line removal - PICC line has been replaced last month (2016) history of Klebsiella bacteremia from UTI (2015) history of Methicillin-sensitive Staph aureus bacteremia, persistent from infected tunneled catheter infection in the right anterior chest wall S/P removal (2015) CHF with end-stage cardiomyopathy Coronary artery disease DM S/P AICD placement Plan continue Azactam - now patient is tolerating it - will hold off on Amikacin repeat blood cx from 08/23 are negative x 24 hours - will get CT A/P to rule out abdominal infection - if that is negative, would recommend to remove the port - if port needs to be preserved, we may try antibiotic lock therapy together with Azactam) - will need 2 weeks of antibiotics from first negative blood cx patient refuising ultrasound of the port area
--- NOTE | 2017-08-24 16:40 | CP.PCM.PN ---
Subjective - Date & Time of Evaluation Date of Evaluation: 08/24/17 Time of Evaluation: 16:30 - Subjective Subjective: Was contacted by patient's nurse, Mr Kirkland, because patient was requesting to sign out against medical advise. Reviewed patient's chart, patient is an 52 y /o whom presented on 08/20/17 complaining of chest pain and was found to have sepsis secondary to klebsiella bacteremia with no clear etiology and is currently getting treatment with IV Aztreonam pending repeat cultures and work up to localize the source of the infection. Patient was explained the risk of leaving against medical advise including the incomplete treatment of the bacteremia, risk of progression of the infection, leading to septic shock, and . The benefit of staying was also explained which include finding the source of the infection, and treating the bacteremia appropriately. Patient is alert and oriented x3 when we had this conversation. Patient verbalized understanding, was able to repeat these words back to me, and was giving plenty of time to ask questions. Patient's was at the bedside, and verbalized understanding. Dr Armstrong was made aware. Objective - Vital Signs/Intake and Output Vital Signs (last 24 hours): Temp Pulse Resp BP Pulse Ox 98.7 F 79 18 136/80 96 08/24/17 15:04 08/24/17 15:04 08/24/17 15:04 08/24/17 15:04 08/24/17 12:00 Intake and Output: 08/24/17 08/24/17 06:59 18:59 Intake Total 967 420 Output Total 4 300 Balance 963 120 - Medications Medications: Current Medications Carvedilol (Coreg) 25 mg PO BID [facility] Last Admin: 08/24/17 09:34 Dose: 25 mg Diphenhydramine HCl (Benadryl) 25 mg PO TID PRN PRN Reason: Allergy symptoms Last Admin: 08/23/17 22:07 Dose: 25 mg Famotidine (Pepcid) 20 mg PO DAILY [facility] Last Admin: 08/24/17 09:34 Dose: 20 mg Furosemide (Lasix) 40 mg PO BID [facility] Last Admin: 08/24/17 09:35 Dose: 40 mg Gabapentin (Neurontin) 200 mg PO HS [facility] PRN Reason: Protocol Last Admin: 08/23/17 21:56 Dose: 200 mg Hydrocortisone Sodium Succinate (Solu-Cortef) 50 mg IVP Q12 [facility] Last Admin: 08/24/17 09:33 Dose: 50 mg Milrinone Lactate/Dextrose (Primacor 20mg/100ml D5w) 100 mls @ 6.423 mls/hr IV .[id number] PRN; Protocol; 0.2 MCG/KG/MIN PRN Reason: TITRATE PER MD ORDER Last Admin: 08/24/17 06:09 Dose: 0.2 mcg/kg/min, 6.423 mls/hr Aztreonam (Azactam 1 Gm) 100 mls @ 100 mls/hr IVPB Q8 [facility] PRN Reason: Protocol Stop: 08/29/17 14:01 Last Admin: 08/24/17 14:00 Dose: 100 mls/hr Amikacin Sulfate 500 mg/ (Sodium Chloride) 102 mls @ 204 mls/hr IVPB Q12 [facility] PRN Reason: Protocol Last Admin: 08/22/17 23:15 Dose: 204 mls/hr Ibuprofen (Motrin Tab) 200 mg PO Q6H PRN PRN Reason: Fever >100.4 F Last Admin: 08/22/17 18:11 Dose: 200 mg Magnesium Oxide (Mag-Ox) 400 mg PO BID [facility] Last Admin: 08/24/17 09:34 Dose: 400 mg Ondansetron HCl (Zofran Inj) 4 mg IVP Q4 PRN PRN Reason: Nausea/Vomiting Pantoprazole Sodium (Protonix Ec Tab) 40 mg PO DAILY [facility] Last Admin: 08/24/17 09:34 Dose: 40 mg Spironolactone (Aldactone) 25 mg PO BID [facility] Last Admin: 08/24/17 09:35 Dose: 25 mg - Labs Labs: 08/23/17 12:30 08/23/17 08:30 PT 10.2 Seconds (9.9-11.8) 08/20/17 05:05 INR 0.94 (0.93-1.08) 08/20/17 05:05 APTT 27.8 Seconds (23.7-30.8) 08/20/17 05:05
== END 2017-08-24 16:43 | disposition left against medical advice (07) | DRG 871 ==
LOC: ED 03:19 → ERH 06:15 → 2RNO 11:07 → OBSVTOIN 08-21 11:15
PROVIDERS: ADMIT Internal Medicine; ATTEND Internal Medicine
DX: A41.59 Other Gram-negative sepsis (principal); R65.21 Severe sepsis with septic shock; N17.9 Acute kidney failure, unspecified; I42.0 Dilated cardiomyopathy; I11.0 Hypertensive heart disease with heart failure; I50.84 End stage heart failure; I50.22 Chronic systolic (congestive) heart failure; I47.2 Ventricular tachycardia; M35.2 Behcet's disease; I27.20 Pulmonary hypertension, unspecified; E11.65 Type 2 diabetes mellitus with hyperglycemia; J44.9 Chronic obstructive pulmonary disease, unspecified; K21.9 Gastro-esophageal reflux disease without esophagitis; D50.9 Iron deficiency anemia, unspecified; I95.1 Orthostatic hypotension; E87.6 Hypokalemia; G47.33 Obstructive sleep apnea (adult) (pediatric); F51.02 Adjustment insomnia; I25.10 Atherosclerotic heart disease of native coronary artery without angina pectoris; Z76.82 Awaiting organ transplant status; Z79.52 Long term (current) use of systemic steroids; Z95.810 Presence of automatic (implantable) cardiac defibrillator; Z79.899 Other long term (current) drug therapy

== ENCOUNTER 2017-11-21 13:23 | Observation (INO) | payer OTHER ==
--- NOTE | 2017-11-21 14:35 | ED PDOC ---
Arrival/HPI - General Chief Complaint: Syncope Time Seen by Provider: 11/21/17 14:22 Historian: Patient - History of Present Illness Narrative History of Present Illness (Text): 11/21/17 14:31 A 52 year old female, whose past medical history includes diabetes, hypertension , CHF, COPD, pacemaker, presents to the emergency department complaining of a syncopal episode 1 hour prior to arrival. Patient reports she woke up this morning feeling dizzy and lightheaded. While taking a shower she passed out for a few seconds. Patient denies any trauma, fever, chills, nausea, vomiting, abdominal pain, chest pain, shortness of breath or any other complaints. PMD: Dr. Armstrong Time/Duration: 1 hour ([employer]) Context: Home Past Medical History - Provider Review Nursing Documentation Reviewed: Yes - Infectious Disease Hx of Infectious Diseases: None - Tetanus Immunization Tetanus Immunization: Unknown - Reproductive Menopause: Yes - Cardiac Hx Congestive Heart Failure: Yes Hx Hypertension: Yes Hx Pacemaker: No (PT DENIES) Other/Comment: waiting list for heart transplant - Pulmonary Hx Chronic Obstructive Pulmonary Disease (COPD): Yes Hx Pneumonia: Yes Hx Sleep Apnea: Yes - Neurological Hx Paralysis: No - HEENT Hx HEENT Disorder: Yes (Wears glasses.) - Renal Hx Renal Disorder: No - Endocrine/Metabolic Hx Endocrine Disorders: No - Hematological/Oncological Hx Blood Transfusions: Yes Hx Blood Transfusion Reaction: No - Integumentary Hx Dermatological Disorder: No - Musculoskeletal/Rheumatological Hx Musculoskeletal Disorders: Yes - Gastrointestinal Hx Gastrointestinal Disorders: Yes Hx Gastroesophageal Reflux: Yes HX Swallowing Problems: Yes - Genitourinary/Gynecological Hx Genitourinary Disorders: No - Psychiatric Hx Emotional Abuse: No Hx Physical Abuse: No Hx Substance Use: No - Surgical History Hx Cholecystectomy: Yes - Anesthesia Hx Anesthesia: Yes Hx Anesthesia Reactions: No Hx Malignant Hyperthermia: No - Suicidal Assessment Feels Threatened In Home Enviroment: No Family/Social History - Physician Review Nursing Documentation Reviewed: Yes Family/Social History: No Known Family HX Smoking Status: Never Smoked Hx Alcohol Use: No Hx Substance Use: No Hx Substance Use Treatment: No Allergies/Home Meds Allergies/Adverse Reactions: Allergies acetaminophen Allergy (Verified 11/21/17 14:07) ANGIOEDEMA cefepime Allergy (Verified 11/21/17 14:07) ANAPHYLAXIS Home Medications: Home Meds Medication Instructions Recorded Confirmed Furosemide [Lasix] 40 mg PO BID 10/17/15 11/21/17 Carvedilol [Coreg] 25 mg PO BID 03/29/16 11/21/17 Spironolactone [Aldactone] 25 mg PO BID 03/29/16 11/21/17 Prednisolone [Millipred] 10 mg PO DAILY 06/11/16 11/21/17 Magnesium Oxide [Mag-Ox] 400 mg PO BID 01/01/17 11/21/17 Pantoprazole [Protonix EC Tab] 40 mg PO DAILY 01/01/17 11/21/17 Epinephrine HCl [Epipen 0.3 mg IM ONCE PRN 03/26/17 11/21/17 Auto-Injector] Sacubitril/Valsartan [Entresto 97 1 each PO BID 11/21/17 11/21/17 mg-103 mg Tablet] Review of Systems - Review of Systems Constitutional: Fatigue. absent: Fevers, Night Sweats Respiratory: absent: SOB, Cough Cardiovascular: Syncope. absent: Chest Pain, Calf Pain, HALL Gastrointestinal: absent: Abdominal Pain, Stool Changes, Nausea, Vomiting Genitourinary Female: absent: Dysuria Musculoskeletal: absent: Back Pain Skin: absent: Rash Neurological: Dizziness (/Lightheaded) Endocrine: absent: Polyuria, Polydipsia Hemo/Lymphatic: Easy Bleeding Psychiatric: absent: Depression Physical Exam - Physical Exam Narrative Physical Exam (Text): Head: Atraumatic. Normocephalic. Eyes: PERRL. EOMI. Conjunctivae are not pale. ENT: Mucous membranes are dry. Neck: Supple. Full ROM. No JVD. No lymphadenopathy. Cardiovascular: Regular rate. Regular rhythm. Systolic murmur, distal pulses intact. Pulmonary/Chest: No evidence of respiratory distress. Clear to auscultation bilaterally. No wheezing, rales or rhonchi. Right chest wall port with no erythema or edema. Abdominal: Soft and non-distended. There is no tenderness. No rebound, guarding, or rigidity. No organomegaly. Good bowel sounds. Back: No CVA tenderness. No midline tenderness or erythema or edema. Extremities: No pitting or weeping edema. No cyanosis. No clubbing. Full range of motion in all extremities. No calf tenderness. Skin: Skin is warm and dry. No petechiae. No purpura. Neurological: Alert, awake, and oriented to person, place, time, and situation. Normal speech. No facial droop. No focal weakness to arms or legs. Psychiatric: Good eye contact. Normal interaction, affect, and behavior. Vital Signs Reviewed: Yes Vital Signs Temp Pulse Resp BP Pulse Ox 11/21/17 19:07 82 16 119/83 100 11/21/17 14:02 98.1 F 88 18 138/88 99 Temperature: Afebrile Blood Pressure: Normal Pulse: Regular Respiratory Rate: Normal Appearance: Positive for: Well-Appearing, Non-Toxic, Comfortable Pain Distress: None Mental Status: Positive for: Alert and Oriented X 3 Medical Decision Making ED Course and Treatment: 11/21/17 14:31 Impression: A 52 year old female presents after syncopal episode while in shower. Patient notes dizziness and lightheadedness. Differential Diagnosis included but are not limited to: Cardiac arrhythmia vs. Symptomatic anemia vs. GI bleed vs neuro disorder Plan: -- Head CT -- Chest xray -- EKG -- Labs -- Urinalysis -- Reassess and disposition Progress Notes: Patient's prior records reviewed. She has prior hx of cardiac disease, sepsis, ? tia/cva in past. She states that she has history of "low iron" and "low blood counts" but denies any rectal or vaginal bleeding She states that she has been fatigued for several days and describes a possible syncopal event in shower today. She denies prolonged LOC or injury, states "not sure if I passed out completely". On initial exam, she is alert, no slurred speech, motor and sensory intact with serial exams. As she has prior cardiac and neuro history, will admit for monitoring and serial exams. Case d/w Dr. Armstrong, accepts admission to her service. Report Date : 11/21/2017 15:25:23 Procedure: Chest xray Dictator : Phil Garrido MD IMPRESSION: No active disease. Patient denies chest pain or shortness of breath. No hypoxia or pleuritic pain noted. - Lab Interpretations Lab Results: 11/21/17 15:00 11/21/17 15:00 Lab Results 11/21/17 17:00: pO2 175 H, VBG pH 7.43, VBG pCO2 41.0, VBG HCO3 27.2, VBG Total CO2 28.5 H, VBG O2 Sat (Calc) 100.3 H, VBG Base Excess 2.6 H, VBG Potassium 3.8 , Glucose 116 H, Lactate 0.9, FiO2 21.0, Sodium 139.0, Chloride 108.0 H, Venous Blood Potassium 3.8 11/21/17 15:33: Urine Color Yellow, Urine Appearance Clear, Urine pH 6.5, Ur Specific [place] 1.025, Urine Protein Negative, Urine Glucose (UA) Negative, Urine Ketones Negative, Urine Blood Negative, Urine Nitrate Negative, Urine Bilirubin Negative, Urine Urobilinogen 0.2, Ur Leukocyte Esterase Negative 11/21/17 15:13: POC Glucose (mg/dL) 104 11/21/17 15:00: Blood Type O POSITIVE, Antibody Screen Negative, BBK History Checked Patient has bt 11/21/17 15:00: Sodium 141, Potassium 3.5 L, Chloride 107, Carbon Dioxide 25, Anion Gap 13, BUN 13, Creatinine 0.8, Est GFR ( Amer) > 60, Est GFR (Non- Af Amer) > 60, Random Glucose 111 H, Calcium 9.0, Magnesium 2.0, Total Bilirubin 0.3, AST 31, ALT 40, Alkaline Phosphatase 89, Lactate Dehydrogenase 426, Total Creatine Kinase 25 L, Troponin I < 0.01, Total Protein 7.1, Albumin 3.6, Globulin 3.6, Albumin/Globulin Ratio 1.0 L 11/21/17 15:00: PT 11.5, INR 1.00, APTT 32.6 11/21/17 15:00: WBC 4.7 D, RBC 4.47, Hgb 11.8 L D, Hct 36.8, MCV 82.3 D, MCH 26.4, MCHC 32.1, RDW 20.2 H, Plt Count 302, MPV 10.1, Gran % 54.4, Lymph % (Auto ) 35.2 H, Dickey % (Auto) 9.1 H, Eos % (Auto) 1.1 L, Baso % (Auto) 0.2, Gran # 2.56, Lymph # 1.7, Dickey # 0.4, Eos # 0.1, Baso # 0.01 - RAD Interpretation Radiology Orders: 11/21/17 14:36 CHEST PORTABLE [RAD] Stat 11/21/17 15:47 HEAD W/O CONTRAST [CT] Stat - EKG Interpretation EKG Interpretation (Text): 11/21/17 22:06 normal sinus rhythm rate of 80, left ventricular hypertrophy with nonspecific st and t wave abnormality with prolonged qt Interpreted by ED Physician: Yes Type: 12 lead EKG - Medication Orders Current Medication Orders: Carvedilol (Coreg) 25 mg PO BID [facility] Magnesium Oxide (Mag-Ox) 400 mg PO BID [facility] Non-Formulary Medication (Prednisolone [Millipred]) 10 mg PO DAILY [facility] Pantoprazole Sodium (Protonix Ec Tab) 40 mg PO DAILY [facility] Sacubitril/Valsartan (Entresto 97 Mg-103 Mg Tablet) 1 each PO BID [facility] Spironolactone (Aldactone) 25 mg PO BID [facility] Discontinued Medications Potassium Chloride (K-Dur 20 Meq Er Tab) 20 meq PO STAT [facility] Stop: 11/21/17 21:57 - Scribe Statement The provider has reviewed the documentation as recorded by the Jerry Barton Provider Scribe Attestation: All medical record entries made by the Scribe were at my direction and personally dictated by me. I have reviewed the chart and agree that the record accurately reflects my personal performance of the history, physical exam, medical decision making, and the department course for this patient. I have also personally directed, reviewed, and agree with the discharge instructions and disposition. Disposition/Present on Arrival - Present on Arrival Any Indicators Present on Arrival: No History of DVT/PE: No History of Uncontrolled Diabetes: No Urinary Catheter: No History of Decub. Ulcer: No History Surgical Site Infection Following: None - Disposition Have Diagnosis and Disposition been Completed?: Yes Diagnosis: Syncope Disposition: HOSPITALIZED Disposition Time: 16:30 Patient Plan: Admission, Observation Patient Problems: Current Active Problems Problem Status Onset Syncope Acute Condition: FAIR
[2017-11-21 15:21] LABS: BASO # 0.01 K/mm3 (0.0-2.0); BASO % 0.2 % (0.0-3.0); EOS # 0.1 (0.0-0.7); EOS % 1.1 % (1.5-5.0); GRAN # 2.56 (1.4-6.5); GRAN % 54.4 % (50.0-68.0); HEMOGLOBIN 11.8 g/dL (12.0-16.0); LYMPH # 1.7 (1.2-3.4); LYMPH % 35.2 % (22.0-35.0); MEAN CELL VOLUME 82.3 fl (80.0-105.0); MEAN CORPUSCULAR HEMOGLOBIN 26.4 pg (25.0-35.0); MEAN CORPUSCULAR HGB CONC 32.1 g/dl (31.0-37.0); MEAN PLATELET VOLUME 10.1 fl (7.0-11.0); MONO # 0.4 (0.1-0.6); MONO % 9.1 % (1.0-6.0); RBC 4.47 10^6/uL (3.5-6.1); RED CELL DISTRIBUTION WIDTH 20.2 % (11.5-14.5); WHITE BLOOD COUNT 4.7 10^3/ul (4.5-11.0)
--- NOTE | 2017-11-21 15:27 | RAD ---
HISTORY: syncope COMPARISON: 08/20/2017 FINDINGS: LUNGS: No active pulmonary disease. PLEURA: No significant pleural effusion identified, no pneumothorax apparent. CARDIOVASCULAR: AICD. Normal heart size. Right central venous infusion port. OSSEOUS STRUCTURES: No significant abnormalities. VISUALIZED UPPER ABDOMEN: Normal. OTHER FINDINGS: None. IMPRESSION: No active disease.
[2017-11-21 15:30] LABS: ALBUMIN 3.6 g/dL (3.0-4.8); ALT/SGPT 40 U/L (7-56); AST/SGOT 31 U/L (14-36); BLOOD UREA NITROGEN 13 mg/dL (7-21); GFR AFRICAN-AMERICAN > 60; GFR NON-AFRICAN AMERICAN > 60
[2017-11-21 15:39] LABS: PARTIAL THROMBOPLASTIN TIME 32.6 Seconds (25.1-36.5); PROTHROMBIN TIME 11.5 SECONDS (9.4-12.5)
[2017-11-21 15:42] LABS: TROPONIN I < 0.01 ng/mL
[2017-11-21 16:22] LABS: PH,URINE 6.5 (4.7-8.0); URINE BILIRUBIN NEGATIVE (NEGATIVE); URINE BLOOD NEGATIVE (NEGATIVE); URINE GLUCOSE (UA) NEGATIVE (NEGATIVE); URINE LEUKOCYTE ESTERASE NEGATIVE Leu/uL (NEGATIVE); URINE NITRATE NEGATIVE (NEGATIVE); URINE PROTEIN NEGATIVE mg/dL (<30 mg/dL); URINE UROBILINOGEN 0.2 E.U./dL (<1 E.U./dL)
[2017-11-21 16:25] LABS: URINE APPEARANCE CLEAR (CLEAR); URINE COLOR YELLOW (YELLOW)
[2017-11-21 17:32] LABS: VENOUS BLOOD GAS BASE EXCESS 2.6 mmol/L (0.0-2.0); VENOUS BLOOD GAS PO2 175 mm/Hg (30-55); VENOUS BLOOD PH 7.43 (7.32-7.43)
[2017-11-21] MEDS ORDERED: Potassium Chloride 20 mEq ER Tab PO STA ×3 (17:34→22:02)
[2017-11-21] MEDS ORDERED: Milrinone 20mg/100ml D5W 100 ML IV PRN (22:03)
--- NOTE | 2017-11-21 22:47 | CT ---
PROCEDURE: CT HEAD WITHOUT CONTRAST. HISTORY: syncope COMPARISON: 01/07/2017. TECHNIQUE: Axial computed tomography images were obtained through the head/brain without intravenous contrast. Radiation dose: Total exam DLP = 888.34 mGy-cm. This CT exam was performed using one or more of the following dose reduction techniques: Automated exposure control, adjustment of the mA and/or kV according to patient size, and/or use of iterative reconstruction technique. FINDINGS: HEMORRHAGE: No intracranial hemorrhage. BRAIN: No mass effect or edema. No atrophy or chronic microvascular ischemic changes. VENTRICLES: Unremarkable. No hydrocephalus. CALVARIUM: Unremarkable. PARANASAL SINUSES: Unremarkable as visualized. No significant inflammatory changes. MASTOID AIR CELLS: Unremarkable as visualized. No inflammatory changes. OTHER FINDINGS: None. IMPRESSION: No acute intracranial abnormalities. No significant findings to account for the clinical presentation. No significant interval change compared to the prior examination(s).
[2017-11-21 23:43] VITALS: BMI 35.9
[2017-11-22] MEDS ORDERED: Milrinone 20mg/100ml D5W 100 ML IV PRN (00:03)
[2017-11-22 06:57] LABS: ALBUMIN 3.3 g/dL (3.0-4.8); ALT/SGPT 42 U/L (7-56); AST/SGOT 26 U/L (14-36); BLOOD UREA NITROGEN 11 mg/dL (7-21); CALCIUM 8.8 mg/dL (8.4-10.5); GFR AFRICAN-AMERICAN > 60; GFR NON-AFRICAN AMERICAN > 60; HDL CHOLESTEROL 41 mg/dL (29-60); MAGNESIUM 1.9 mg/dL (1.7-2.2)
[2017-11-22 07:07] LABS: BILIRUBIN,DIRECT 0.3 mg/dL (0.0-0.4)
[2017-11-22 07:08] LABS: B-TYPE NATRIURETIC PEPTIDE 1040 pg/mL (0-450); LDL CHOLESTEROL 70 mg/dL (0-129); TROPONIN I < 0.01 ng/mL
[2017-11-22 07:21] LABS: HEMOGLOBIN 11.4 g/dL (12.0-16.0); MEAN CELL VOLUME 82.3 fl (80.0-105.0); MEAN CORPUSCULAR HEMOGLOBIN 26.1 pg (25.0-35.0); MEAN CORPUSCULAR HGB CONC 31.8 g/dl (31.0-37.0); MEAN PLATELET VOLUME 10.3 fl (7.0-11.0); RBC 4.36 10^6/uL (3.5-6.1)
[2017-11-22 07:23] LABS: INR 1.03 (0.93-1.08); PROTHROMBIN TIME 11.8 SECONDS (9.4-12.5)
--- NOTE | 2017-11-22 08:33 | CARD ---
APPROVED REPORT EKG Measurement Heart [id number] <Conclusion> Normal sinus rhythm Possible Left atrial enlargement Left ventricular hypertrophy Nonspecific ST and T wave abnormality Prolonged QT Abnormal ECG
[2017-11-22] MEDS: Magnesium Oxide 400 mg Tab UD PO SCH ×2 (10:18→17:45)
[2017-11-22] MEDS: Pantoprazole 40 mg EC Tab PO SCH (10:19)
[2017-11-22] MEDS: SACUBITRIL 97mg/ VALSARTAN 103mg tab PO SCH ×2 (10:19→17:45)
[2017-11-22] MEDS: PrednisoLONE 15 mg/5 ml Oral Syrup (240 ml) PO SCH (10:26)
[2017-11-22 11:14] LABS: FERRITIN 13.7 ng/mL
[2017-11-22 11:44] LABS: FOLATE 8.5 ng/mL
[2017-11-22] MEDS: Vancomycin 1gm in NS 250ml 1 GM/250 ML BAG IVPB SCH ×2 (12:34→23:36)
[2017-11-22] MEDS: Aztreonam 1 Gm in NS 100mL 100 ML IVPB SCH ×2 (14:47→21:52)
--- NOTE | 2017-11-23 01:41 | CON ---
DATE: 11/22/2017 PULMONARY CONSULT REFERRING PHYSICIAN: Dr. Armstrong. REASON FOR CONSULTATION: Cardiomyopathy, heart failure, and chronic lung disease. HISTORY OF PRESENT ILLNESS: This is a 52-year-old female, well known to me from previous admission with multiple medical issue, main of which is severe cardiomyopathy, history of Primacor use which has been discontinued 3 to 4 months ago, hypertension, chronic lung disease, Behcet's disease, steroids dependent, history of recurrent bacteremia, line sepsis, had been followed at [facility] for length hospital evaluation which she is going through, was very lethargic, tired, sleepy, came into emergency room and was admitted for further workup. At present, she is lying in the bed, sleepy, arousable. No nausea. No vomiting. No diarrhea. No leg pain or leg swelling. PAST MEDICAL HISTORY: As per history of present illness. ALLERGIES: TO ACETAMINOPHEN HAD ANGIOEDEMA AND ALSO ALLERGIC TO CEFEPIME. FAMILY HISTORY: No significant cardiopulmonary disease reported. SOCIAL HISTORY: Nonsmoker. Nondrinker. MEDICATIONS: She is on Aldactone 25 mg twice a day, Azactam 1 gm IV q. 8 hours, Coreg 25 mg twice a day, Entresto 1 tab twice a day, IV iron sucrose, magnesium oxide 400 mg twice a day, Motrin 400 mg q.6 hours p.r.n., prednisone 10 mg daily, Protonix 40 mg daily, and vancomycin 1 gm IV q.12 hours. REVIEW OF SYSTEMS: No headache. No rhinitis. Short of breath with exertion. No chest pain. No nausea. No diarrhea. No leg pain. No leg swelling. PHYSICAL EXAMINATION: GENERAL: In no acute distress. VITAL SIGNS: Temperature is 98, heart rate 80, respiratory rate 20, blood pressure 132/90, and pulse ox 98% on room air. HEENT: Moist mucous membranes. No ulcer or thrush noted. NECK: Supple. No JVD. LUNGS: Has a fair airflow with few rhonchi. HEART: S1 and S2. ABDOMEN: Soft and nontender. No organomegaly. EXTREMITIES: No edema. NEUROLOGIC: Awake, alert, and follows simple commands. LABORATORY DATA: Shows hemoglobin 11.4, hematocrit 35.9, WBC 4.0, platelet is 279. INR 1.03. Blood gases show, ABG, pH of 7.43, pCO2 is 41, and O2 of 175. Sodium 139, potassium 3.7, chloride 107, bicarbonate 24, BUN 12, creatinine 0.8, glucose is 94. Hemoglobin A1c is 6.1, calcium 6.8, magnesium is 1.9. AST 26, ALT 42, alkaline phosphatase is 82. Troponin less than 0.01. ProBNP is 1040. Albumin is 3.3. Triglyceride is 59, vitamin B12 is 371, and folate is 8.5. IMPRESSION AND PLAN: Severe cardiomyopathy, Behcet's disease, steroid dependent, history of recurrent bacteremia from the line sepsis, anemia, and chronic lung disease. Pulmonary point of view, she is doing okay. Keep head elevated at 45 degrees. May start B12 supplement, already on iron supplement, antibiotics as per Infectious Diseases. Gastric and deep vein thrombosis prophylaxis. Thank you, and we will follow with you. Cruz Teran MD
--- NOTE | 2017-11-23 03:54 | CON ---
DATE: 11/22/2017 LOCATION: The patient is seen in room 357, bed 2. CHIEF COMPLAINT: Episode of syncope of one-day duration. HISTORY OF PRESENT ILLNESS: This is a 52-year-old female known to me from previous admission, originally the patient is from [facility] with history of hypertension, congestive heart failure, and cardiomyopathy. The patient has an AICD and the patient with chronic obstructive lung disease, GERD, and has had Serratia bacteremia, which required port-A-cath removal because of recurrent Serratia bacteremia. The patient also had a history of Klebsiella bacteremia in the past in 2016, also having MRSA bacteremia prior to that, and prior to that, the patient had Citrobacter bacteremia and history of Behcet's syndrome, cardiomyopathy, and congestive heart failure. REVIEW OF SYSTEMS: The patient denies any fever or any chills. No chest pain. No abdominal pain, diarrhea, or constipation. No bright red blood per rectum. PAST MEDICAL HISTORY: Significant for hypertension, cardiomyopathy, congestive heart failure, chronic obstructive lung disease, GERD, recurrent Serratia bacteremia requiring port-A-cath removal, also an episode of Klebsiella bacteremia last year in 2016, MRSA bacteremia and Citrobacter bacteremia, and Behcet's syndrome. The patient has a history of AICD placement and cholecystectomy. AICD was placed in 2011. ALLERGIES: THE PATIENT IS ALLERGIC TO CEFEPIME. PHYSICAL EXAMINATION: GENERAL: The patient is in bed, answer questions appropriately, and nontoxic. VITAL SIGNS: Temperature is 98, blood pressure is 130/90, respiratory rate of 20, and heart rate of 80. HEENT: Unremarkable. NECK: Supple. LUNGS: Decreased breath sounds. HEART: Normal S1 and S2. ABDOMEN: Soft and nontender. LABORATORY DATA: Reveals a white count of 4700, hemoglobin of 11, platelets are 302, and 54% granulocytosis,. Coagulation is noted. Chemistries reveal a BUN of 11 and creatinine of 0.8. BNP is 1040. C-reactive protein is 13.54. Sed rate of 10. Urinalysis is negative. Blood cultures are negative. CAT scan of the head is reported to be no acute findings. The patient had a chest x-ray, which was reported to be negative. Emergency room chart is reviewed. ASSESSMENT AND PLAN: This is a 52-year-old female originally from [facility] with hypertension, congestive heart failure, chronic obstructive pulmonary disease, gastroesophageal reflux disease, recurrent Serratia bacteremia, port-A-cath, automatic implantable cardioverter-defibrillator, Klebsiella bacteremia, methicillin-resistant Staphylococcus aureus bacteremia, Citrobacter bacteremia, and Behcet's, now presenting with syncope and patient was started on vancomycin and Azactam because of cefepime allergy. She has also had human immunodeficiency virus testing because of her age of 52. Human immunodeficiency virus test was negative in 2015. Blood cultures are now reported to be negative. If the blood cultures remained negative in the next 24 hours, we will discontinue the antibiotics and we will check on a repeat human immunodeficiency virus testing. We will follow with you. Osmany Garza MD
--- NOTE | 2017-11-23 03:59 | CON ---
DATE: 11/22/2017 LOCATION: The patient is in room 367, bed 2. REASON FOR CONSULTATION: Syncope, history of cardiomyopathy, and history of AICD insertion. HISTORY OF PRESENT ILLNESS: A 52-year-old female who is known to have nonischemic cardiomyopathy, history of CHF, status post AICD insertion, COPD, hypertension, diabetes, sleep apnea, iron deficiency anemia, gastroesophageal reflux, obesity with ejection fraction 20% by cath in 11/2015 and has Biotronik AICD with a single lead. She was in shower when she felt weak and she had a syncopal episode. Denies any chest pain, palpitations, nausea, or vomiting associated with this episode. Denies any biting of her tongue during the episode or any shaking. PAST MEDICAL HISTORY: Positive for nonischemic cardiomyopathy, chronic LV systolic failure with LV ejection fraction of 20% by cath 11/2015, status post Biotronik single lead AICD insertion, COPD, diabetes mellitus, hypertension, Behcet's syndrome, iron deficiency anemia, sleep apnea, gastroesophageal reflux disease, and obesity. PERSONAL HISTORY: Denies any smoking. Denies drinking. ALLERGIES: THE PATIENT IS ALLERGIC TO ACETAMINOPHEN AND CEFEPIME. FAMILY HISTORY: Not significant. REVIEW OF SYSTEMS: All other system reviewed, positive mentioned in the history, otherwise negative. MEDICATIONS AT HOME: The patient was taking at home Entresto 1 b.i.d., Coreg 25 b.i.d., prednisolone 10 mg daily, Protonix 40 daily, magnesium oxide 400 b.i.d., Lasix 40 mg b.i.d., and Aldactone 25 b.i.d. PATIENT'S PHYSICIANS: The patient sees at [facility] at [facility] and Dr. Lugo in [place] for AICD followup. PHYSICAL EXAMINATION: VITAL SIGNS: Blood pressure 115/80, respirations 20, pulse 80, and the patient is afebrile. HEENT: Head is normocephalic. Eyes: Pupils normal. Conjunctivae slightly pale. NECK: JVP low. Carotids equal. THORAX: AP diameter normal. AICD in place. LUNGS: Clear. CARDIOVASCULAR: S1 and S2. ABDOMEN: Soft. No tenderness. No organomegaly. EXTREMITIES: No clubbing. No cyanosis. LABORATORY DATA: Shows WBC 4.7, hemoglobin 11.8, hematocrit 36.8, and platelet 302. Sodium 139, potassium 3.7, BUN 11, and creatinine 0.8. Hemoglobin A1c 6.1. Sugar 94. Magnesium 1.9 and calcium 8.8. AST and ALT normal. Troponin less than 0.01 and NT-pro brain natriuretic peptide 1040. Total protein and albumin normal. Triglycerides 59, cholesterol 135, HDL 41, and LDL 70. TSH 0.74. Chest x-ray clear. EKG showed paced rhythm. DIAGNOSES: Syncope, rule out postural hypotension, rule out cardiac arrhythmia, nonischemic cardiomyopathy, ejection fraction 20% by cath 11/2015, status post Biotronik automatic implantable cardioverter-defibrillator insertion, chronic obstructive pulmonary disease, diabetes mellitus, hypertension, sleep apnea, iron deficiency anemia, gastroesophageal reflux disease, and obesity. PLAN: Check orthostatic blood pressure and also AICD interrogation. The patient is on spironolactone 25 b.i.d., carvedilol 25 b.i.d., and Entresto 1 b.i.d. Venofer IV has been ordered. Magnesium oxide 400 b.i.d., prednisolone 10 mg daily, Protonix 40 p.o. daily, vancomycin 1 g IV q.12 hours as per Infectious Disease, and vitamin B12 1000 mcg IM daily as per Dr. Teran. We will monitor the patient for any arrhythmia. We will follow with you. Cruz Asencio MD
--- NOTE | 2017-11-23 04:53 | HP ---
CHIEF COMPLAINT: Syncope, fatigue, and tired. HISTORY OF PRESENT ILLNESS: Ms. Pauline Martinez is a 52-year-old female with past medical history of diabetes mellitus, hypertension, congestive heart failure, COPD, pacemaker came to the Emergency Room Department, complaining of syncopal episode. One hour prior to the arrival to the [facility] the patient reports that she woke up that morning feeling dizzy and lightheadedness while taking shower. She passed out for a few seconds. The patient denies any trauma, fever, chills, nausea, vomiting, or diarrhea. No hematuria or hematochezia. No swelling of the legs. No chest pain. No palpitation. PAST MEDICAL HISTORY: Congestive heart failure, hypertension, pacemaker, COPD, pneumonia, sleep apnea, history of blood transfusion, GERD, dyspepsia, and cholecystectomy. FAMILY HISTORY: Father and mother noncontributory. HABITS: Never smoked. No drug. No ethanol. ALLERGIES: SHE IS ALLERGIC WITH ACETAMINOPHEN AND CEFEPIME. HOME MEDICATIONS: Lasix, Coreg, Aldactone, prednisolone, magnesium oxide, Protonix, EpiPen, and valsartan. REVIEW OF SYSTEMS: The patient is seen and examined on the bedside. Looking comfortable. No nausea, vomiting, or diarrhea. No hematuria or hematochezia. No swelling of the legs. No chest pain or palpitation. No headache or dizziness. No fever. No chills. PHYSICAL EXAMINATION: VITAL SIGNS: Temperature 98.6, pulse 99, blood pressure 115/80, left arm lying down is 123/80, sitting 122/80, standing 122/90 and respiratory rate 20. HEENT: Head is normocephalic and atraumatic. Eyes PERRLA. Extraocular muscles intact. Conjunctivae clear. Nose patent. Mucous membranes moist. NECK: Supple. No carotid bruits. No JVD or thyromegaly. CHEST: Bilaterally symmetrical. HEART: S1 and S2 positive. LUNGS: Clear to auscultation. ABDOMEN: Soft. Bowel sounds present. No organomegaly. EXTREMITIES: No edema. No cyanosis. NEUROLOGIC: The patient is awake and alert. Moving all 4 extremities. No focal deficits. LABORATORY DATA: White blood cell is 4.0, hemoglobin 11.4, hematocrit 35.9 and platelets 279. Sodium 139, potassium 3.7, BUN 11 and creatinine 0.8. C-reactive protein 13.54. ASSESSMENT AND PLAN: Ms. Pauline Martinez is a 52-year-old lady with leukopenia, anemia, rule out inflammatory response syndrome. CAT scan of the head done. No acute intracranial abnormality. No significant findings to account for clinical presentation. No significant interval change compared to the prior examination. Chest x-ray is also noted by me. No active disease. We will call ID consult to rule out sepsis because the patient has Port-A-cath. Cardiology and Pulmonary consult called. Spironolactone started. Dr. Garza start the patient on Azactam, Coreg, and valsartan. The patient has history of iron deficiency anemia, iron infusions given, and Venofer. The patient was taking prednisone for Behcet's disease continue that. The patient has history of severe cardiomyopathy, congestive heart failure, and obesity. Repeat labs. We will follow up. Carisa Armstrong MD
[2017-11-23] MEDS: Aztreonam 1 Gm in NS 100mL 100 ML IVPB SCH (05:30)
[2017-11-23 06:18] LABS: HEMOGLOBIN 10.9 g/dL (12.0-16.0); MEAN CELL VOLUME 82.8 fl (80.0-105.0); MEAN CORPUSCULAR HEMOGLOBIN 26.1 pg (25.0-35.0); MEAN CORPUSCULAR HGB CONC 31.5 g/dl (31.0-37.0); MEAN PLATELET VOLUME 10.1 fl (7.0-11.0); RBC 4.18 10^6/uL (3.5-6.1); RED CELL DISTRIBUTION WIDTH 20.1 % (11.5-14.5); WHITE BLOOD COUNT 4.9 10^3/ul (4.5-11.0)
[2017-11-23 07:45] LABS: ALBUMIN 3.1 g/dL (3.0-4.8); ALT/SGPT 40 U/L (7-56); AST/SGOT 45 U/L (14-36); BLOOD UREA NITROGEN 16 mg/dL (7-21); CALCIUM 8.8 mg/dL (8.4-10.5); GFR AFRICAN-AMERICAN > 60; GFR NON-AFRICAN AMERICAN > 60
[2017-11-23] MEDS: SACUBITRIL 97mg/ VALSARTAN 103mg tab PO SCH ×2 (10:45→18:21)
[2017-11-23] MEDS: Pantoprazole 40 mg EC Tab PO SCH (10:45)
[2017-11-23] MEDS: Magnesium Oxide 400 mg Tab UD PO SCH ×2 (10:45→18:21)
[2017-11-23] MEDS: PrednisoLONE 15 mg/5 ml Oral Syrup (240 ml) PO SCH (10:54)
[2017-11-23 17:32] VITALS: TEMP 98
[2017-11-23 17:40] VITALS: BP 118/78; PULSE 74; RESP 18; O2SAT 98
--- NOTE | 2017-11-23 17:44 | US ---
PROCEDURE: Bilateral carotid artery duplex ultrasound HISTORY: Carotid stenosis syncope PHYSICIAN(S): Phil Bolton MD. TECHNIQUE: Duplex sonography and color-flow Doppler were used to evaluate the carotid bifurcations and limited segments of the vertebral arteries bilaterally. FINDINGS: The vessels are mildly tortuous. There is mild smooth heterogeneous plaque noted at the carotid bifurcations bilaterally. The peak systolic velocity in the proximal right internal carotid artery is 75 cm/sec. This corresponds to a 20 to 39% proximal right ICA stenosis. Normal systolic velocities are noted in the proximal right external carotid artery. There is antegrade flow in the right vertebral artery. The peak systolic velocity in the proximal left internal carotid artery is 73 cm/sec. This corresponds to a 20 to 39% proximal left ICA stenosis. Normal systolic velocities are noted in the proximal left external carotid artery. There is antegrade flow in the dominant left vertebral artery. IMPRESSION: 1. Bilateral 20-39% proximal ICA stenoses. 2. Antegrade flow in both vertebral arteries.
--- NOTE | 2017-11-23 19:53 | PN ---
DATE: 11/23/2017 REASON FOR CONSULTATION AND FOLLOWUP: History of nonischemic cardiomyopathy, status post AICD, admitted with near syncope. SUBJECTIVE: The patient denies any chest pain, shortness of breath, any palpitations. OBJECTIVE: GENERAL: Not in apparent distress. VITAL SIGNS: As follows; temperature afebrile, heart rate 72, blood pressure 108/64, orthostatic blood pressure was checked and found to be lying 108/64, sitting 113/77, and standing 113/80. HEENT: PERRLA. Extraocular muscles intact. NECK: Supple. No carotid bruits or thyromegaly. CHEST: Clear to auscultation. HEART: S1 and S2 regular. ABDOMEN: Soft. EXTREMITIES: Clubbing and cyanosis are negative. LABORATORY DATA: Blood workup as follows; WBC 4.9, hemoglobin 10.9, hematocrit 34.6, platelet count 278. Chemistry shows sodium 130, potassium 3.9, chloride 106, carbon dioxide 24, anion gap 12, BUN 16, and creatinine 0.8. Total protein 6.3, albumin 3.1, albumin globulin ratio 1. IMPRESSION: This is a 52-year-old female, obese, body mass index of 36 kg/m2, nonischemic cardiomyopathy, status post automated implantable cardioverter-defibrillator placed on 07/01/2011, [email or web address] because of nonischemic cardiomyopathy, ejection fraction 20%. Biotronik single lead automated implantable cardioverter-defibrillator, history of Behcet's, hypertension, sleep apnea, obesity, gastroesophageal reflux, who admitted after an argument at home with . Went to take shower and felt that she was going to pass out, so came in here. She denies any chest pain, shortness of breath, any palpitation. Yesterday, the patient had a defibrillator intervention done. No arrhythmias noted, but in last 3 to 4 years, no shock delivered, no arrhythmia noted. Initial date of implantation was 07/01/2011 and last intervention was done on 09/11/2017, being followed by Dr. Patrick Lugo for defibrillator. Initial defibrillator was placed in [place]. Battery life is 37% 3 to 4 years, history of nonischemic cardiomyopathy. Her last echo was 07/18/2017. It showed ejection fraction of 25%, trace aortic regurgitation, moderate mitral regurgitation and [id number] tricuspid regurgitation. Automated implantable cardioverter-defibrillator lead noted in right atrium and right ventricle. History of cardiac catheterization on 10/07/[address] Benjamin, essentially normal coronaries. No significant coronary artery disease was noted. No evidence of orthostatic hypotension. The patient was on home milrinone, was off it for 4 months, being followed by Dr. Kay team and transferred to [facility]. RECOMMENDATIONS: Resume medication. The patient was at home spironolactone, Entresto, Lasix, and Coreg. We will resume medication. Discontinue telemetry. No further cardiac workup is planned at this time. Upon discharge, the patient will be followed with Dr. Lugo for defibrillator and Dr. Sourav Kay for her congestive heart failure. We will follow with you. No evidence of arrhythmia noted on AICD interrogation. Continue Coreg, continue spironolactone, continue diuretics as needed and continue valsartan. We will follow with you. We will start gentle diuretics 40 mg daily. Cruz Hill MD
--- NOTE | 2017-11-23 23:45 | PN ---
DATE: 11/23/2017 SUBJECTIVE: The patient is in bed, in no acute distress. The patient is seen earlier today, nontoxic. No fevers and chills. OBJECTIVE: VITAL SIGNS: Temperature is 98, blood pressure is 120/70, and respiratory rate of 16. HEENT: Examination of HEENT is unremarkable. NECK: Supple. LUNGS: Have decreased breath sounds. HEART: Normal S1 and S2. ABDOMEN: Soft. LABORATORY DATA: Reveals a white count of 4.9, hemoglobin of 10, and platelets of 278. BUN of 16 and creatinine of 0.8. HIV is negative. Urine culture has gram-positive cocci. Blood cultures are negative. ASSESSMENT AND PLAN: This is a 52-year-old female, known to me from previous admission, who is originally from [facility], has a history hypertension, congestive heart failure, cardiomyopathy, automatic implantable cardioverter-defibrillator, chronic obstructive lung disease, gastroesophageal reflux disease, Serratia bacteremia, history of Klebsiella bacteremia, history of methicillin-resistant Staphylococcus aureus bacteremia, Citrobacter bacteremia, history of Behcet's syndrome, cardiomyopathy, congestive heart failure, blood cultures negative on this admission, admitted with syncope. We will discontinue the antibiotics. Urine cultures have gram-positive cocci, although the urinalysis is completely negative. HIV is nonreactive. We will follow closely with you. Osmany Garza MD
--- NOTE | 2017-11-24 00:02 | CON ---
REASON FOR CONSULTATION: Syncope. HISTORY OF PRESENT ILLNESS: This is a 52-year-old female with past medical history of cardiomyopathy; CHF, status post AICD; COPD; hypertension; diabetes; iron-deficiency anemia; GERD, came to the hospital because the patient was in the shower and felt weak and had a syncopal episode. They does not know how and what happened. Denies any tongue bite. No urinary incontinence. PAST MEDICAL HISTORY: Cardiomyopathy, AICD, COPD, diabetes, hypertension, iron-deficiency anemia, and GERD. SOCIAL HISTORY: Does not smoke, does not drink. ALLERGIES: ALLERGIC TO ACETAMINOPHEN. REVIEW OF SYSTEMS: A 10-point review of system was negative. PHYSICAL EXAMINATION: HEENT: Normocephalic, atraumatic. NECK: Supple. NEURO: Alert, awake and oriented x3. No aphasia. Cranial nerves II through XII are tested. Pupils reactive. EOM intact. Visual bernard full. No facial asymmetry. Tongue midline. Motor: Moves all the extremities equally. Tone normal. Deep tendon reflexes are 1+. Both plantars are downgoing. Sensory appears intact. Cerebellar, gait deferred. IMPRESSION: Syncope, less likely seizure. CAT scan of the head was done which was reported to be negative for bleed, and we will do EEG and we will continue present management. We will follow up. Jose Juan Duarte MD
--- NOTE | 2017-11-24 01:49 | PN ---
DATE: 11/23/2017 PULMONARY PROGRESS NOTE REFERRING PHYSICIAN: Dr. Armstrong. SUBJECTIVE: She is ambulating in the room, feels much better. No headache. No rhinitis. No nausea, vomiting, or diarrhea. No neck pain or neck swelling. OBJECTIVE: GENERAL: In no acute distress. VITAL SIGNS: Temperature 98, heart rate 74, respiratory rate 18, blood pressure 118/78, and pulse oximetry 98% on room air. HEENT: Moist mucous membrane. Crowded airway. Mallampati score is IV. NECK: Supple. No JVD. LUNGS: Have a fair airflow with rhonchi. HEART: S1 and S2. ABDOMEN: Soft and nontender. No organomegaly. EXTREMITIES: There is edema in both lower extremities. NEUROLOGIC: Awake and alert. Follow simple commands. LABORATORY DATA: Show hemoglobin 10.9, hematocrit 34.6, WBC 4.9, platelets 278. Sodium 138, potassium 3.9, chloride 106, bicarbonate 24, BUN 16, creatinine 0.8, glucose 98, calcium is 8.8, AST 45, ALT 40, alkaline phosphatase 73, C-reactive protein 13.4, albumin is 3.1. Microbiology: Urine culture has a gram positive cocci. Blood cultures have been negative. MEDICATIONS: Reviewed. No new change in medications reported. IMPRESSION AND PLAN: Severe cardiomyopathy, Behcet's disease, steroid dependent, history of recurrent bacteremia, history of line sepsis in the past, anemia, chronic lung disease, probably have adrenal insufficiency, pulmonary point of view doing okay. The patient is steroid dependent. We will continue to monitor. Refer to Rheumatology as the outpatient, being followed by [facility] by heart transplant team. Fall precaution. Gastric and deep venous thrombolysis prophylaxis. Thank you, and we will follow with you. Cruz Teran MD
== END 2017-11-23 20:40 | disposition home or self-care (01) ==
LOC: ED 13:23 → ERH 17:54 → 3RNO 22:53
PROVIDERS: ADMIT Internal Medicine; ATTEND Internal Medicine
DX: R55 Syncope and collapse (principal); M35.2 Behcet's disease; D50.9 Iron deficiency anemia, unspecified; I11.0 Hypertensive heart disease with heart failure; I50.9 Heart failure, unspecified; I42.9 Cardiomyopathy, unspecified; E66.9 Obesity, unspecified; K21.9 Gastro-esophageal reflux disease without esophagitis; J44.9 Chronic obstructive pulmonary disease, unspecified; Z95.810 Presence of automatic (implantable) cardiac defibrillator; Z79.52 Long term (current) use of systemic steroids; Z88.6 Allergy status to analgesic agent; Z86.14 Personal history of Methicillin resistant Staphylococcus aureus infection; Z68.36 Body mass index [BMI] 36.0-36.9, adult
CPT/HCPCS: 36415; 70450; 71045; 80048; 80053; 80061; 80076; 81003; 82550; 82607; 82728; 82746; 82803; 82948; 83036; 83615; 83735; 83880; 84443; 84484; 85025; 85027; 85610; 85651; 85730; 86140; 86850; 86900; 87040; 87086; 87389; 93005; 93289; 93880; 95812; 99285; G0378; J1756; J3420; J7510

== ENCOUNTER 2017-12-01 21:55 | Emergency (ER) | payer OTHER ==
[2017-12-01 22:07] VITALS: BMI 35.5
[2017-12-01 22:13] VITALS: TEMP 97.9
[2017-12-01 23:02] LABS: URINE BILIRUBIN NEGATIVE (NEGATIVE); URINE BLOOD MODERATE (NEGATIVE); URINE GLUCOSE (UA) NEGATIVE (NEGATIVE); URINE LEUKOCYTE ESTERASE TRACE Leu/uL (NEGATIVE); URINE NITRATE NEGATIVE (NEGATIVE); URINE PROTEIN NEGATIVE mg/dL (<30 mg/dL); URINE UROBILINOGEN 0.2 E.U./dL (<1 E.U./dL)
[2017-12-01 23:04] LABS: URINE APPEARANCE CLEAR (CLEAR); URINE COLOR LIGHT YELLOW (YELLOW)
[2017-12-01 23:09] LABS: URINE BACTERIA TRACE (NEG); URINE EPITHELIAL CELLS 0 - 2 /hpf (0-5); URINE WBC 0 - 2 /hpf (0-6)
[2017-12-01 23:12] LABS: BASO # 0.01 K/mm3 (0.0-2.0); BASO % 0.2 % (0.0-3.0); EOS # 0.1 (0.0-0.7); EOS % 0.8 % (1.5-5.0); GRAN # 3.37 (1.4-6.5); GRAN % 54.2 % (50.0-68.0); HEMOGLOBIN 12.2 g/dL (12.0-16.0); LYMPH # 2.3 (1.2-3.4); LYMPH % 37.2 % (22.0-35.0); MEAN CELL VOLUME 83.8 fl (80.0-105.0); MEAN CORPUSCULAR HEMOGLOBIN 26.8 pg (25.0-35.0); MEAN CORPUSCULAR HGB CONC 31.9 g/dl (31.0-37.0); MEAN PLATELET VOLUME 10.2 fl (7.0-11.0); MONO # 0.5 (0.1-0.6); MONO % 7.6 % (1.0-6.0); RBC 4.56 10^6/uL (3.5-6.1); RED CELL DISTRIBUTION WIDTH 20.2 % (11.5-14.5); WHITE BLOOD COUNT 6.2 10^3/ul (4.5-11.0)
--- NOTE | 2017-12-01 23:25 | ED PDOC ---
Arrival/HPI - General Chief Complaint: Shortness Of Breath Time Seen by Provider: 12/01/17 22:28 Historian: Patient - History of Present Illness Narrative History of Present Illness (Text): 12/01/17 23:26 Pt is a 52 yo F who presents for shortness of breath x 2 hrs with associated symptoms of urine frequency. Pt states that she was cleaning and organizing itmes in her new home when she suddenly felt very weak and short of breath. She reports that she ate breakfast this morning but noticed an urge to urinate throughout the day but did not notice burning or change a color or odor. Pt has PMH of congestive heart failure for shich she takes spironolactone and lasix; states she took her medications today and on time. Denies cp, nausea, vomiting, diarrhea, or hematuria. Time/Duration: Prior to Arrival Symptom Onset: Gradual Symptom Course: Worsening Quality: Aching Severity Level: Mild Activities at Onset: Rest, Light Context: Home Past Medical History - Provider Review Nursing Documentation Reviewed: Yes - Travel History Have you recently traveled outside [place] w/in the past 3 mons?: No - Past History Past History: No Previous - Infectious Disease Hx of Infectious Diseases: None - Tetanus Immunization Tetanus Immunization: Unknown - Cardiac Hx Cardiac Disorders: Yes Hx Cardiac Arrhythmia: Yes Hx Congestive Heart Failure: Yes Hx Hypertension: Yes Hx Internal Defibrillator: Yes Hx Pacemaker: Yes Other/Comment: waiting list for heart transplant - Pulmonary Hx Respiratory Disorders: No Hx Chronic Obstructive Pulmonary Disease (COPD): No (denies) Hx Pneumonia: No (denies) Hx Sleep Apnea: No (denies) - Neurological Hx Neurological Disorder: Yes HX Cerebrovascular Accident: Yes - HEENT Hx HEENT Disorder: Yes (Wears glasses.) Hx Cataracts: No Hx Glaucoma: No Hx Macular Degeneration: No - Renal Hx Renal Disorder: No - Endocrine/Metabolic Hx Endocrine Disorders: No - Hematological/Oncological Hx Blood Disorders: Yes Hx Anemia: Yes (with blood transfusion) - Integumentary Hx Dermatological Disorder: No - Musculoskeletal/Rheumatological Hx Falls: No - Gastrointestinal Hx Gastrointestinal Disorders: Yes Hx Gastroesophageal Reflux: Yes Hx Gastrointestinal Ulcer: Yes HX Swallowing Problems: Yes - Genitourinary/Gynecological Hx Genitourinary Disorders: No - Psychiatric Hx Psychophysiologic Disorder: No Hx Anxiety: No Hx Emotional Abuse: No Hx Physical Abuse: No Hx Substance Use: No - Surgical History Hx Cardiac Catheterization: Yes Hx Coronary Stent: No - Anesthesia Hx Anesthesia: Yes Hx Anesthesia Reactions: No Hx Malignant Hyperthermia: No - Suicidal Assessment Feels Threatened In Home Enviroment: No Family/Social History - Physician Review Nursing Documentation Reviewed: Yes Family/Social History: No Known Family HX Smoking Status: Never Smoked Hx Alcohol Use: No Hx Substance Use: No Hx Substance Use Treatment: No Allergies/Home Meds Allergies/Adverse Reactions: Allergies acetaminophen Allergy (Verified 11/21/17 14:07) ANGIOEDEMA cefepime Allergy (Verified 11/21/17 14:07) ANAPHYLAXIS Home Medications: Home Meds Medication Instructions Recorded Confirmed Furosemide [Lasix] 40 mg PO BID 10/17/15 12/01/17 Spironolactone [Aldactone] 25 mg PO BID 03/29/16 12/01/17 Epinephrine HCl [Epipen 0.3 mg IM ONCE PRN 03/26/17 12/01/17 Auto-Injector] Sacubitril/Valsartan [Entresto 97 1 each PO BID 11/21/17 12/01/17 mg-103 mg Tablet] Review of Systems - Physician Review All systems were reviewed & negative as marked: Yes - Review of Systems Constitutional: Fatigue Eyes: Normal ENT: Normal Respiratory: SOB. absent: Normal, Cough, Sputum, Wheezing, Other Cardiovascular: Normal. absent: Chest Pain, Palpitations, Edema, Calf Pain, HALL , Orthopnea, SY, Syncope, Other Gastrointestinal: Appetite Changes. absent: Normal, Abdominal Pain, Stool Changes, Constipation, Diarrhea, Nausea, Vomiting, Hematochezia, Hematemesis, Anorexia, Food Intolerance, Other Genitourinary Female: Frequency, Urine Output Changes. absent: Normal, Dysuria , Hematuria, Vaginal Bleeding, Vaginal Discharge, Other Musculoskeletal: Normal Skin: Normal Neurological: Normal Endocrine: Normal Hemo/Lymphatic: Normal Psychiatric: Normal Physical Exam Vital Signs Reviewed: Yes Vital Signs Temp Pulse Resp BP Pulse Ox 12/02/17 00:00 60 18 149/89 100 12/01/17 22:42 17 99 12/01/17 22:11 97.9 F 68 17 140/101 H 100 Temperature: Afebrile Blood Pressure: Normal Pulse: Regular Respiratory Rate: Normal Appearance: Positive for: Non-Toxic, Uncomfortable Pain Distress: Mild Mental Status: Positive for: Alert and Oriented X 3 Finger Stick Blood Glucose: 87 - Systems Exam Head: Present: Atraumatic, Normocephalic Pupils: Present: PERRL Extroacular Muscles: Present: EOMI Conjunctiva: Present: Normal Mouth: Present: Moist Mucous Membranes Neck: Present: Normal Range of Motion Respiratory/Chest: Present: Clear to Auscultation, Good Air Exchange. No: Respiratory Distress, Accessory Muscle Use Cardiovascular: Present: Regular Rate and Rhythm, Normal S1, S2. No: Murmurs Abdomen: Present: Normal Bowel Sounds. No: Tenderness, Distention, Peritoneal Signs Genitourinary/Pelvic Exam: No: Normal External Genitalia, Vaginal Discharge, Vaginal Bleeding, Vaginal Lesions, Adenexal Tenderness, Adenexal Mass, Cervical Motion Tendernes, Cervical os Closed, Odor, Other Back: Present: Normal Inspection. No: CVA Tenderness, Midline Tenderness, Paraspinal Tenderness, Pain with Leg Raise, Decubitus Ulcer, Other Upper Extremity: Present: Normal Inspection. No: Cyanosis, Edema Lower Extremity: Present: Normal Inspection, NORMAL PULSES. No: Edema Neurological: Present: GCS=15, CN II-XII Intact, Speech Normal Skin: Present: Warm, Dry, Normal Color. No: Rashes Psychiatric: Present: Alert, Oriented x 3, Normal Insight, Normal Concentration Medical Decision Making ED Course and Treatment: 12/01/17 23:32 Pt is a 52 yo F who presents for shortness of breath x 2 hrs with associated symptoms of urine frequency. On exam, there is no CVA tenderness bilateral and no suprapubic pain on palpation. Lungs CTAB. Plan: cbc, UA, cmp, bnp, rapid flu CXR unremarkable Spoke with pt about findings; dispo home with macrobid 100mg bid x 7 days Loading dose of macrobid given before discharge VSS and pt ambulated well out of the ED Reassessment Condition: Improved - Lab Interpretations Lab Results: 12/01/17 23:01 12/01/17 23:01 Lab Results 12/01/17 23:01: Influenza Typ A,B (EIA) Negative for flu a/b 12/01/17 23:01: Sodium 138, Potassium 4.1, Chloride 106, Carbon Dioxide 25, Anion Gap 12, BUN 20, Creatinine 0.9, Est GFR ( Amer) > 60, Est GFR (Non- Af Amer) > 60, Random Glucose 95, Calcium 9.8, Total Bilirubin 0.3, AST 18, ALT 23, Alkaline Phosphatase 68, NT-Pro-B Natriuret Pep 801 H, Total Protein 6.8, Albumin 3.6, Globulin 3.2, Albumin/Globulin Ratio 1.1 12/01/17 23:01: WBC 6.2 D, RBC 4.56, Hgb 12.2, Hct 38.2, MCV 83.8, MCH 26.8, MCHC 31.9, RDW 20.2 H, Plt Count 283, MPV 10.2, Gran % 54.2, Lymph % (Auto) 37.2 H, [place] % (Auto) 7.6 H, Eos % (Auto) 0.8 L, Baso % (Auto) 0.2, Gran # 3.37 , Lymph # 2.3, Archer # 0.5, Eos # 0.1, Baso # 0.01 12/01/17 22:43: Urine Color Light yellow, Urine Appearance Clear, Urine pH 7.0, Ur Specific [place] 1.015, Urine Protein Negative, Urine Glucose (UA) Negative, Urine Ketones Negative, Urine Blood Moderate H, Urine Nitrate Negative, Urine Bilirubin Negative, Urine Urobilinogen 0.2, Ur Leukocyte Esterase Trace H, Urine RBC 10 - 15, Urine WBC 0 - 2, Ur Epithelial Cells 0 - 2, Urine Bacteria Trace, Urine Other Uyeast I have reviewed the lab results: Yes (Positive for UTI) Interpretation: Abnormal lab values - RAD Interpretation Narrative RAD Interpretations (Text): No active pulmonary disease noted; mild cardiomegaly Radiology Orders: 12/02/17 00:06 CXR [CHEST TWO VIEWS (PA/LAT)] [RAD] Stat Auto Collision Repair Instructor: Radiologist - EKG Interpretation Interpreted by ED Physician: Yes (NSR; Rate 68) - Medication Orders Current Medication Orders: Discontinued Medications Nitrofurantoin Macrocrystals (Macrobid) 100 mg PO Q12 STA Stop: 12/02/17 00:58 Last Admin: 12/02/17 01:29 Dose: 100 mg Disposition/Present on Arrival - Present on Arrival Any Indicators Present on Arrival: No History of DVT/PE: No History of Uncontrolled Diabetes: No Urinary Catheter: No History of Decub. Ulcer: No History Surgical Site Infection Following: None - Disposition Have Diagnosis and Disposition been Completed?: Yes Diagnosis: UTI (urinary tract infection), Weakness Disposition: HOME/ ROUTINE Disposition Time: 12:30 Patient Plan: Discharge Condition: STABLE Discharge Instructions (ExitCare): Nitrofurantoin Combination (By mouth), Urinary Tract Infection in Women (ED), Weakness (ED) Additional Instructions: Please make sure that you take all of your prescribed antibiotic to completion. If you have any issues with stomach upset or diarrhea, you may take a probiotic product to alleviate this side effect. Should you develop any alarming symptoms such as chest pain, severe shortness of breath, fever or nausea, return to the emergency department for evaluation. Please follow up with your primary doctor in 5-7 days. All the best in your recovery Prescriptions: Nitrofurantoin Macrocrystals [Macrobid] 100 mg PO BID 7 Days #14 cap Forms: [facility] (H[place]er)
[2017-12-01 23:29] LABS: B-TYPE NATRIURETIC PEPTIDE 801 pg/mL (0-450)
[2017-12-01 23:30] LABS: ALB/GLOB RATIO 1.1 (1.1-1.8); ALBUMIN 3.6 g/dL (3.0-4.8); ALT/SGPT 23 U/L (7-56); AST/SGOT 18 U/L (14-36); BLOOD UREA NITROGEN 20 mg/dL (7-21); CALCIUM 9.8 mg/dL (8.4-10.5); GFR AFRICAN-AMERICAN > 60; GFR NON-AFRICAN AMERICAN > 60
[2017-12-02 00:31] VITALS: BP 149/89; PULSE 60; RESP 18; O2SAT 100
--- NOTE | 2017-12-02 08:53 | RAD ---
HISTORY: COMPARISON: 11/21/2017. TECHNIQUE: Chest PA and lateral FINDINGS: LINES AND TUBES: The right MediPort terminates in the SVC. LUNG AND PLEURA: The lungs are well inflated and clear. HEART AND MEDIASTINUM: There is mild cardiomegaly. There is stable position of a left-sided AICD. The hilar and mediastinal contours are within normal limits. SKELETAL STRUCTURES: The bony structures are within normal limits for the patient's age. VISUALIZED UPPER ABDOMEN: Normal. OTHER FINDINGS: None. IMPRESSION: No active pulmonary disease.
--- NOTE | 2017-12-02 15:58 | CARD ---
APPROVED REPORT EKG Measurement Heart [id number] <Conclusion> Normal sinus rhythm Minimal voltage criteria for LVH, may be normal variant ST & T wave abnormality, consider lateral ischemia Abnormal ECG
== END 2017-12-02 01:30 | disposition home or self-care (01) ==
LOC: ED 21:55
DX: N39.0 Urinary tract infection, site not specified (principal); R53.1 Weakness; I10 Essential (primary) hypertension

== ENCOUNTER 2017-12-08 06:18 | Emergency (ER) | payer OTHER ==
[2017-12-08 06:19] VITALS: BMI 35.5
[2017-12-08 06:36] VITALS: RESP 18
[2017-12-08] MEDS ORDERED: Sodium Chloride 0.9% 1,000 ML IV STA (07:23)
--- NOTE | 2017-12-08 07:27 | ED PDOC ---
Arrival/HPI - General Chief Complaint: Medical Clearance Time Seen by Provider: 12/08/17 07:08 Historian: Patient - History of Present Illness Narrative History of Present Illness (Text): 12/08/17 07:23 Pt p/w ~ 1 week onset of lightheadedness/dizziness (room spinning), easily fatigued/severe weakness, poor appetite, + chills/shakes, no sweats/fever; no cp /sob/palpitations, no abd pain, no flank pain, no n/v, no urinary/bowel changes ; pt was diagnosed with UTI last week and is almost done with the prescribed ABX today; pt is due to see Dr Armstrong next week (her PCP); pt denied slurr speech, no miranda, no vision changes, no back pain, no fall/trauma/sick contact, no travel; pt denied rashes; pt is here for further eval; pt's without other complaints. PMD: Dr. Armstrong Time/Duration: 1 week Symptom Onset: Gradual Symptom Course: Unchanged Quality: Other Activities at Onset: Rest Context: Home Past Medical History - Provider Review Nursing Documentation Reviewed: Yes - Travel History Have you recently traveled outside [place] w/in the past 3 mons?: No - Past History Past History: No Previous - Infectious Disease Hx of Infectious Diseases: None - Tetanus Immunization Tetanus Immunization: Unknown - Reproductive Menopause: Yes - Cardiac Hx Cardiac Disorders: Yes Hx Cardiac Arrhythmia: Yes Hx Congestive Heart Failure: Yes Hx Hypertension: Yes Hx Internal Defibrillator: Yes (2010) Hx Pacemaker: Yes Other/Comment: waiting list for heart transplant - Pulmonary Hx Respiratory Disorders: No Hx Chronic Obstructive Pulmonary Disease (COPD): No (denies) Hx Pneumonia: No (denies) Hx Sleep Apnea: No (denies) - Neurological Hx Neurological Disorder: Yes HX Cerebrovascular Accident: Yes - HEENT Hx HEENT Disorder: Yes (Wears glasses.) Hx Cataracts: No Hx Glaucoma: No Hx Macular Degeneration: No - Renal Hx Renal Disorder: No - Endocrine/Metabolic Hx Endocrine Disorders: No - Hematological/Oncological Hx Blood Disorders: Yes Hx Anemia: Yes (with blood transfusion) - Integumentary Hx Dermatological Disorder: No - Musculoskeletal/Rheumatological Hx Musculoskeletal Disorders: No Hx Falls: No - Gastrointestinal Hx Gastrointestinal Disorders: Yes Hx Gastroesophageal Reflux: Yes Hx Gastrointestinal Ulcer: Yes - Genitourinary/Gynecological Hx Genitourinary Disorders: No - Psychiatric Hx Psychophysiologic Disorder: No Hx Anxiety: Yes Hx Emotional Abuse: No Hx Physical Abuse: No Hx Substance Use: No - Surgical History Hx Cardiac Catheterization: Yes Hx Coronary Stent: No Other/Comment: defibrillator 2011 - Anesthesia Hx Anesthesia: Yes Hx Anesthesia Reactions: No Hx Malignant Hyperthermia: No - Suicidal Assessment Feels Threatened In Home Enviroment: No Family/Social History - Physician Review Nursing Documentation Reviewed: Yes Family/Social History: No Known Family HX Smoking Status: Never Smoked Hx Alcohol Use: No Hx Substance Use: No Hx Substance Use Treatment: No Allergies/Home Meds Allergies/Adverse Reactions: Allergies acetaminophen Allergy (Verified 12/08/17 06:35) ANGIOEDEMA cefepime Allergy (Verified 12/08/17 06:35) ANAPHYLAXIS Home Medications: Home Meds Medication Instructions Recorded Confirmed Furosemide [Lasix] 40 mg PO BID 10/17/15 12/08/17 Spironolactone [Aldactone] 25 mg PO BID 03/29/16 12/08/17 Epinephrine HCl [Epipen 0.3 mg IM ONCE PRN 03/26/17 12/08/17 Auto-Injector] Sacubitril/Valsartan [Entresto 97 1 each PO BID 11/21/17 12/08/17 mg-103 mg Tablet] Review of Systems - Review of Systems Constitutional: Fatigue. absent: Night Sweats Eyes: Normal ENT: Normal Respiratory: Normal Cardiovascular: Normal Gastrointestinal: Normal Genitourinary Female: Normal Musculoskeletal: Normal Skin: Normal Neurological: Dizziness Endocrine: Normal Hemo/Lymphatic: Normal Psychiatric: Normal Physical Exam Vital Signs Reviewed: Yes (WNL) Vital Signs Temp Pulse Resp BP Pulse Ox 12/08/17 11:51 98 F 75 18 126/79 99 12/08/17 10:40 98.2 F 69 18 129/74 99 12/08/17 06:35 98.4 F 79 18 124/71 96 Temperature: Afebrile Blood Pressure: Normal Pulse: Regular Respiratory Rate: Normal Appearance: Positive for: Well-Appearing, Uncomfortable, Other (alert/awake, GCS = 15, oriented x 3, resting in bed, cooperative, NAD, follows commands with ease) Pain Distress: None Mental Status: Positive for: Alert and Oriented X 3 - Systems Exam Head: Present: Atraumatic, Normocephalic Pupils: Present: PERRL, Other (no nystagmus, no photophobia, sclera anicteric, visual field intact b/l) Extroacular Muscles: Present: EOMI Conjunctiva: Present: Normal Ears: Present: Normal, NORMAL TM Mouth: Present: Normal Tounge, Normal Teeth, Other (no drooling/stridor, no exudate/lesions, no dysphonia, mild dry oral mucosa noted) Pharnyx: Present: Normal Nose (External): Present: Atraumatic Nose (Internal): Present: Normal Inspection Neck: Present: Normal Range of Motion, Trachea Midline. No: MIDLINE TENDERNESS Respiratory/Chest: Present: Clear to Auscultation, Good Air Exchange, Other ( CTA b/l, no w/r/r, no accessory muscle use noted, no tachypenia) Cardiovascular: Present: Regular Rate and Rhythm, Normal S1, S2, Other (no murmur). No: Murmurs Abdomen: Present: Normal Bowel Sounds, Other (well nourished female, no focal tenderness, no masses/rebound/guarding/rigidity; no bustos's sign, no mcburney' s point tenderness) Back: Present: Normal Inspection. No: CVA Tenderness, Midline Tenderness Upper Extremity: Present: Normal Inspection, Normal ROM, NORMAL PULSES, Neurovascularly Intact Lower Extremity: Present: Normal Inspection, NORMAL PULSES, Normal ROM, Neurovascularly Intact Neurological: Present: GCS=15, CN II-XII Intact, Speech Normal Skin: Present: Warm, Normal Color, Other (cap refill < 1sec, no ulcerations, no petechiae) Psychiatric: Present: Alert, Oriented x 3 Medical Decision Making ED Course and Treatment: 12/08/17 07:29 Impression: weakness, dizziness i have consider all the differential diagnosis regarding pt's chief medical complaints/clinical findings, including but are not limited to: weakness, dizziness A/P: weakenss, dizziness - labs - iv - xray - us - ua - observe - supportive care 12/08/2017 08:45 Renal Ultrasound IMPRESSION: 1.5 cm right upper pole renal cyst. Dictator: Madeleine Peguero MD 12/08/2017 10:13 Chest X-ray IMPRESSION: No active disease. Dictator: Navi Lira MD 12/08/17 11:48 Dr Armstrong contacted, made aware of pt's ED presentation, labs/diagnostics results, agrees with ED mgt, will f/u with patient as outpt if pt can be discharged home Re-evaluation Time: 11:45 Reassessment Condition: Improved - Lab Interpretations Lab Results: 12/08/17 07:51 12/08/17 07:51 Lab Results 12/08/17 08:29: Urine Color Yellow, Urine Appearance Clear, Urine pH 7.0, Ur Specific [place] 1.020, Urine Protein Negative, Urine Glucose (UA) Negative, Urine Ketones Negative, Urine Blood Negative, Urine Nitrate Negative, Urine Bilirubin Negative, Urine Urobilinogen 0.2, Ur Leukocyte Esterase Negative 12/08/17 07:51: Influenza Typ A,B (EIA) Negative for flu a/b 12/08/17 07:51: pO2 66 H, VBG pH 7.38, VBG pCO2 45.0, VBG HCO3 26.6, VBG Total CO2 28.0, VBG O2 Sat (Calc) 96.1 H, VBG Base Excess 1.0, VBG Potassium 3.9, Sodium 138.0, Chloride 109.0 H, Glucose 94, Lactate 0.5 L, FiO2 21.0, Venous Blood Potassium 3.9 12/08/17 07:51: WBC 4.2 L D, RBC 4.45, Hgb 11.9 L, Hct 37.7, MCV 84.7, MCH 26.7 , MCHC 31.6, RDW 20.1 H, Plt Count 213, MPV 10.2, Gran % 51.2, Lymph % (Auto) 36.8 H, [place] % (Auto) 10.1 H, Eos % (Auto) 1.7, Baso % (Auto) 0.2, Gran # 2.13, Lymph # (Auto) 1.5, [place] # (Auto) 0.4, Eos # (Auto) 0.1, Baso # (Auto) 0.01 12/08/17 07:51: Sodium 142, Chloride 107, Potassium 4.1, Carbon Dioxide 26, Anion Gap 13, BUN 13, Creatinine 0.8, Est GFR ( Amer) > 60, Est GFR (Non- Af Amer) > 60, Random Glucose 88, Calcium 9.1, Total Bilirubin 0.5, AST 19, ALT 33, Alkaline Phosphatase 69, Troponin I < 0.01, Total Protein 6.6, Albumin 3.4, Globulin 3.2, Albumin/Globulin Ratio 1.1, Lipase 80 I have reviewed the lab results: Yes Interpretation: All labs normal - RAD Interpretation Radiology Orders: 12/08/17 07:21 CHEST TWO VIEWS (PA/LAT) [RAD] Stat 12/08/17 07:22 RENAL [US] Stat HISTORY: dizziness COMPARISON: 12/02/2017 TECHNIQUE: Chest PA and lateral FINDINGS: LUNGS: No active pulmonary disease. PLEURA: No significant pleural effusion identified. No pneumothorax apparent. CARDIOVASCULAR: Mild cardiomegaly OSSEOUS STRUCTURES: No significant abnormalities. VISUALIZED UPPER ABDOMEN: Normal. OTHER FINDINGS: Right-sided Port-A-Cath. Left-sided pacemaker IMPRESSION: No active disease. PROCEDURE: Ultrasound of the Kidneys HISTORY: r/o hydro COMPARISON: None available. TECHNIQUE: Sonogram of the kidneys. FINDINGS: RIGHT KIDNEY: Measures: 10.7 x 4.9 x 4.9 cm. 1.5 x 1.3 x 1.4 cm right upper pole cyst. No obstructing calculus or hydronephrosis identified. LEFT KIDNEY: Measures: 9.8 x 4.8 x 4.7 cm. No obstructing calculus, hydronephrosis, or renal cyst identified. OTHER FINDINGS: None. IMPRESSION: 1.5 cm right upper pole renal cyst. Splicer Helper: Radiologist - EKG Interpretation EKG Interpretation (Text): 12/08/17 11:45 NSR at 70 bpm, normal axis, no ectopy, inverted T in leads III, V4-6, no st changes, ABNL EKG; unchanged compare with old ekg 11/201712/08/17 11:47 Interpreted by ED Physician: Yes Type: 12 lead EKG Comparison: Similar to previous EKG - Medication Orders Current Medication Orders: Discontinued Medications Sodium Chloride (Sodium Chloride 0.9%) 1,000 mls @ 999 mls/hr IV .Q1H1M STA Stop: 12/08/17 08:23 Last Admin: 12/08/17 08:47 Dose: 999 mls/hr eMAR Start Stop Document 12/08/17 08:47 LA (Rec: 12/08/17 08:48 LA [id number]) Intravenous Solution Start Date 12/08/17 Start Time 08:48 Disposition/Present on Arrival - Present on Arrival Any Indicators Present on Arrival: No History of DVT/PE: No History of Uncontrolled Diabetes: No Urinary Catheter: No History of Decub. Ulcer: No History Surgical Site Infection Following: None - Disposition Have Diagnosis and Disposition been Completed?: Yes Diagnosis: Dehydration Disposition: HOSPITALIZED Disposition Time: 11:49 Patient Plan: Discharge Patient Problems: Current Active Problems Problem Status Onset Dehydration Acute Condition: STABLE Discharge Instructions (ExitCare): Dehydration (ED) Print Language: MALTESE Additional Instructions: Make sure to see your doctor in 1-2 days DRINK PLENTY OF FLUIDS take your medications as prescribed RETURN TO ED IF worse pain, cant breath, persistent vomiting, high fever >101- 102 for hours, altered behavior, unable to urinate, heavy/persistent bleeding, passing out, chest pain, or other medical emergencies Prescriptions: Ondansetron ODT [Zofran ODT] 4 mg PO TID PRN #12 odt PRN Reason: Nausea/Vomiting Referrals: [facility] Ivan Desir, [Non-Staff] - Follow up with primary Carisa Armstrong MD [Primary Care Provider] - Follow up with primary Forms: [employer] ([place]ese)
[2017-12-08 08:11] LABS: BASO # 0.01 K/mm3 (0.0-2.0); BASO % 0.2 % (0.0-3.0); EOS # 0.1 (0.0-0.7); EOS % 1.7 % (1.5-5.0); GRAN # 2.13 (1.4-6.5); GRAN % 51.2 % (50.0-68.0); HEMOGLOBIN 11.9 g/dL (12.0-16.0); LYMPH # 1.5 (1.2-3.4); LYMPH % 36.8 % (22.0-35.0); MEAN CELL VOLUME 84.7 fl (80.0-105.0); MEAN CORPUSCULAR HEMOGLOBIN 26.7 pg (25.0-35.0); MEAN CORPUSCULAR HGB CONC 31.6 g/dl (31.0-37.0); MEAN PLATELET VOLUME 10.2 fl (7.0-11.0); MONO # 0.4 (0.1-0.6); MONO % 10.1 % (1.0-6.0); RBC 4.45 10^6/uL (3.5-6.1); RED CELL DISTRIBUTION WIDTH 20.1 % (11.5-14.5); WHITE BLOOD COUNT 4.2 10^3/ul (4.5-11.0)
[2017-12-08 08:16] LABS: VENOUS BLOOD GAS PO2 66 mm/Hg (30-55); VENOUS BLOOD PH 7.38 (7.32-7.43)
[2017-12-08 08:28] LABS: ALB/GLOB RATIO 1.1 (1.1-1.8); ALBUMIN 3.4 g/dL (3.0-4.8); ALT/SGPT 33 U/L (7-56); AST/SGOT 19 U/L (14-36); BLOOD UREA NITROGEN 13 mg/dL (7-21); CALCIUM 9.1 mg/dL (8.4-10.5); GFR AFRICAN-AMERICAN > 60; GFR NON-AFRICAN AMERICAN > 60; LIPASE 80 U/L (23-300)
[2017-12-08 08:33] LABS: TROPONIN I < 0.01 ng/mL
[2017-12-08 08:33] LABS: URINE BILIRUBIN NEGATIVE (NEGATIVE); URINE BLOOD NEGATIVE (NEGATIVE); URINE GLUCOSE (UA) NEGATIVE (NEGATIVE); URINE LEUKOCYTE ESTERASE NEGATIVE Leu/uL (NEGATIVE); URINE NITRATE NEGATIVE (NEGATIVE); URINE PROTEIN NEGATIVE mg/dL (<30 mg/dL); URINE UROBILINOGEN 0.2 E.U./dL (<1 E.U./dL)
[2017-12-08 08:34] LABS: URINE APPEARANCE CLEAR (CLEAR); URINE COLOR YELLOW (YELLOW)
--- NOTE | 2017-12-08 08:47 | US ---
PROCEDURE: Ultrasound of the Kidneys HISTORY: r/o hydro COMPARISON: None available. TECHNIQUE: Sonogram of the kidneys. FINDINGS: RIGHT KIDNEY: Measures: 10.7 x 4.9 x 4.9 cm. 1.5 x 1.3 x 1.4 cm right upper pole cyst. No obstructing calculus or hydronephrosis identified. LEFT KIDNEY: Measures: 9.8 x 4.8 x 4.7 cm. No obstructing calculus, hydronephrosis, or renal cyst identified. OTHER FINDINGS: None. IMPRESSION: 1.5 cm right upper pole renal cyst.
--- NOTE | 2017-12-08 10:15 | RAD ---
HISTORY: dizziness COMPARISON: 12/02/2017 TECHNIQUE: Chest PA and lateral FINDINGS: LUNGS: No active pulmonary disease. PLEURA: No significant pleural effusion identified. No pneumothorax apparent. CARDIOVASCULAR: Mild cardiomegaly OSSEOUS STRUCTURES: No significant abnormalities. VISUALIZED UPPER ABDOMEN: Normal. OTHER FINDINGS: Right-sided Port-A-Cath. Left-sided pacemaker IMPRESSION: No active disease.
[2017-12-08 11:05] VITALS: O2SAT 99
[2017-12-08 11:52] VITALS: BP 126/79; PULSE 75; TEMP 98
== END 2017-12-08 12:25 | disposition home or self-care (01) ==
LOC: ED 06:18
DX: E86.0 Dehydration (principal); I10 Essential (primary) hypertension; I50.9 Heart failure, unspecified; Z95.0 Presence of cardiac pacemaker
CPT/HCPCS: 71046; 76770; 80053; 81003; 82803; 83690; 84484; 85025; 87086; 87804; 99283; J7040

== ENCOUNTER 2018-02-14 09:12 | Emergency (ER) | payer OTHER ==
[2018-02-14 09:34] VITALS: BMI 35.0
[2018-02-14 09:36] VITALS: RESP 18; TEMP 98.2; O2SAT 100
--- NOTE | 2018-02-14 09:45 | ED PDOC ---
Arrival/HPI - General Chief Complaint: Shortness Of Breath Time Seen by Provider: 02/14/18 09:27 Historian: Patient - History of Present Illness Narrative History of Present Illness (Text): 02/14/18 09:44 A 52 year old female, whose past medical history includes hypertension, CHF, COPD, pacemaker on transplant list and behcet disease, presents to the emergency department for evaluation. Patient reports she had a chest port removed 5 days ago. Patient was on milrinone until 07/2016 and no longer needed port. She reports the day after the procedure she experienced fever, chills, nausea, shortness of breath and fatigue. Patient notes her symptoms resolved the following day but returned last night. Patient denies any vomiting, diarrhea , constipation, abdominal pain, chest pain or any other complaints. Time/Duration: Other (last night returned) Context: Home Past Medical History - Provider Review Nursing Documentation Reviewed: Yes - Past History Past History: No Previous - Infectious Disease Hx of Infectious Diseases: None - Tetanus Immunization Tetanus Immunization: Unknown - Cardiac Hx Cardiac Disorders: Yes Hx Cardiac Arrhythmia: Yes Hx Congestive Heart Failure: Yes Hx Hypertension: Yes Hx Internal Defibrillator: Yes (2010) Hx Pacemaker: Yes Other/Comment: waiting list for heart transplant - Pulmonary Hx Respiratory Disorders: No Hx Chronic Obstructive Pulmonary Disease (COPD): No (denies) Hx Pneumonia: No (denies) Hx Sleep Apnea: No (denies) - Neurological Hx Neurological Disorder: Yes HX Cerebrovascular Accident: Yes - HEENT Hx HEENT Disorder: Yes (Wears glasses.) Hx Cataracts: No Hx Glaucoma: No Hx Macular Degeneration: No - Renal Hx Renal Disorder: No - Endocrine/Metabolic Hx Endocrine Disorders: No - Hematological/Oncological Hx Blood Disorders: Yes Hx Anemia: Yes (with blood transfusion) - Integumentary Hx Dermatological Disorder: No - Musculoskeletal/Rheumatological Hx Musculoskeletal Disorders: No Hx Falls: No - Gastrointestinal Hx Gastrointestinal Disorders: Yes Hx Gastroesophageal Reflux: Yes Hx Gastrointestinal Ulcer: Yes - Genitourinary/Gynecological Hx Genitourinary Disorders: No - Psychiatric Hx Psychophysiologic Disorder: No Hx Anxiety: Yes Hx Emotional Abuse: No Hx Physical Abuse: No Hx Substance Use: No - Surgical History Hx Cardiac Catheterization: Yes Hx Coronary Stent: No Other/Comment: defibrillator 2010 - Anesthesia Hx Anesthesia: Yes Hx Anesthesia Reactions: No Hx Malignant Hyperthermia: No - Suicidal Assessment Feels Threatened In Home Enviroment: No Family/Social History - Physician Review Nursing Documentation Reviewed: Yes Family/Social History: No Known Family HX Smoking Status: Never Smoked Hx Alcohol Use: No Hx Substance Use: No Hx Substance Use Treatment: No Allergies/Home Meds Allergies/Adverse Reactions: Allergies acetaminophen Allergy (Verified 12/08/17 06:35) ANGIOEDEMA cefepime Allergy (Verified 12/08/17 06:35) ANAPHYLAXIS Home Medications: Home Meds Medication Instructions Recorded Confirmed Furosemide [Lasix] 40 mg PO BID 10/17/15 12/08/17 Spironolactone [Aldactone] 25 mg PO BID 03/29/16 12/08/17 Epinephrine HCl [Epipen 0.3 mg IM ONCE PRN 03/26/17 12/08/17 Auto-Injector] Sacubitril/Valsartan [Entresto 97 1 each PO BID 11/21/17 12/08/17 mg-103 mg Tablet] Review of Systems - Physician Review All systems were reviewed & negative as marked: Yes - Review of Systems Constitutional: Fatigue, Fevers, Night Sweats Respiratory: SOB Cardiovascular: absent: Chest Pain Gastrointestinal: Nausea. absent: Abdominal Pain, Constipation, Diarrhea, Vomiting Physical Exam Vital Signs Reviewed: Yes Vital Signs Temp Pulse Resp BP Pulse Ox 02/14/18 13:11 18 02/14/18 13:04 76 18 125/80 100 02/14/18 11:20 79 18 121/79 100 02/14/18 09:12 98.2 F 82 18 123/82 100 Temperature: Afebrile Blood Pressure: Normal Respiratory Rate: Normal Appearance: Positive for: Well-Appearing, Non-Toxic, Comfortable, Other ( appears anxious) Pain Distress: None Mental Status: Positive for: Alert and Oriented X 3 - Systems Exam Head: Present: Atraumatic, Normocephalic Pupils: Present: PERRL Extroacular Muscles: Present: EOMI Conjunctiva: Present: Normal Mouth: Present: Moist Mucous Membranes Neck: Present: Normal Range of Motion. No: JVD Respiratory/Chest: Present: Clear to Auscultation, Good Air Exchange. No: Respiratory Distress, Accessory Muscle Use, Rales Cardiovascular: Present: Regular Rate and Rhythm, Normal S1, S2. No: Murmurs Abdomen: No: Tenderness, Distention, Peritoneal Signs Back: Present: Normal Inspection Upper Extremity: Present: Normal Inspection. No: Cyanosis, Edema Lower Extremity: Present: Normal Inspection. No: Edema Neurological: Present: GCS=15, CN II-XII Intact, Speech Normal Skin: Present: Warm, Dry, Normal Color. No: Rashes Psychiatric: Present: Alert, Oriented x 3, Normal Insight, Normal Concentration Medical Decision Making ED Course and Treatment: 02/14/18 09:44 Impression: A 52 year old female with fever, chills, nausea, shortness of breath and fatigue Plan: -- Chest xray -- EKG -- Labs -- Blood and Urine culture -- Urinalysis -- Reassess and disposition Progress Notes: EKG shows NSR at 72 BPM with LVH, T-wave changes, no change from prior on . Interpreted by me. Report Date : 02/14/2018 12:35:06 Procedure: Chest xray Dictator : Navi Tesfaye MD IMPRESSION: No active disease. Case discussed with Dr. Armstrong, states patient can be discharged home and follow up outpatient in her office. I have discussed the results and plan with the patient, who expresses understanding. Patient in agreement with plan to be discharged home. Patient is stable for discharge. Patient was instructed to follow up with physician or return if symptoms worsen or new concerning symptoms arise. - Lab Interpretations Microbiology Results: Microbiology Results 02/14/18 10:30 Blood-Venous Blood Culture - Preliminary NO GROWTH AFTER 24 HOURS 02/14/18 10:10 Blood-Venous Blood Culture - Preliminary NO GROWTH AFTER 24 HOURS Lab Results: 02/14/18 10:10 02/14/18 10:10 Lab Results 02/14/18 10:50: Urine Color Yellow, Urine Appearance Clear, Urine pH 6.5, Ur Specific [place] 1.020, Urine Protein Negative, Urine Glucose (UA) Negative, Urine Ketones Trace H, Urine Blood Negative, Urine Nitrate Negative, Urine Bilirubin Negative, Urine Urobilinogen 0.2, Ur Leukocyte Esterase Negative 02/14/18 10:10: pO2 47, VBG pH 7.38, VBG pCO2 51.0, VBG HCO3 30.2 H, VBG Total CO2 31.8 H, VBG O2 Sat (Calc) 85.8 H, VBG Base Excess 3.9 H, VBG Potassium 3.7, Sodium 139.0, Chloride 104.0, Glucose 94, Lactate 1.1, FiO2 21.0, Venous Blood Potassium 3.7 02/14/18 10:10: Sodium 141, Chloride 104, Potassium 3.6, Carbon Dioxide 28, Anion Gap 13, BUN 21, Creatinine 1.0, Est GFR ( Amer) > 60, Est GFR (Non- Af Amer) 58, Random Glucose 96, Calcium 9.5, Total Bilirubin 0.6, AST 21, ALT 25 , Alkaline Phosphatase 71, Lactate Dehydrogenase 454, Total Creatine Kinase 26 L , Troponin I < 0.01, NT-Pro-B Natriuret Pep 306, Total Protein 7.4, Albumin 3.8 , Globulin 3.6, Albumin/Globulin Ratio 1.1 02/14/18 10:10: PT 11.5, INR 1.00 02/14/18 10:10: WBC 5.9 D, RBC 4.90, Hgb 13.9 D, Hct 42.4, MCV 86.5, MCH 28.4 , MCHC 32.8, RDW 15.8 H, Plt Count 239, MPV 10.1, Gran % 59.2, Lymph % (Auto) 33.3, Mayes % (Auto) 6.3 H, Eos % (Auto) 1.0 L, Baso % (Auto) 0.2, Gran # 3.49, Lymph # (Auto) 2.0, Mayes # (Auto) 0.4, Eos # (Auto) 0.1, Baso # (Auto) 0.01 I have reviewed the lab results: Yes - RAD Interpretation Radiology Orders: 02/14/18 09:45 CHEST PORTABLE [RAD] Stat - Medication Orders Current Medication Orders: Discontinued Medications Ondansetron HCl (Zofran Inj) 4 mg IVP STAT STA Stop: 02/14/18 11:14 Last Admin: 02/14/18 11:19 Dose: 4 mg IVP Administration Document 02/14/18 11:19 GMD (Rec: 02/14/18 11:19 GMD [id number]) Charges for Administration # of IVP Administrations 1 - Scribe Statement The provider has reviewed the documentation as recorded by the Scribe Christina Barton Provider Scribe Attestation: All medical record entries made by the Scribe were at my direction and personally dictated by me. I have reviewed the chart and agree that the record accurately reflects my personal performance of the history, physical exam, medical decision making, and the department course for this patient. I have also personally directed, reviewed, and agree with the discharge instructions and disposition. Disposition/Present on Arrival - Present on Arrival Any Indicators Present on Arrival: No History of DVT/PE: No History of Uncontrolled Diabetes: No Urinary Catheter: No History of Decub. Ulcer: No History Surgical Site Infection Following: None - Disposition Have Diagnosis and Disposition been Completed?: Yes Diagnosis: Anxiety, Nausea Disposition: HOME/ ROUTINE Disposition Time: 13:04 Patient Plan: Discharge Condition: GOOD Discharge Instructions (ExitCare): Anxiety, Adult (DC), Nausea and Vomiting, Adult (DC) Additional Instructions: Mrs Korey Martinez- All of your tests are normal. I spoke with Dr. Armstrong, she would like you to follow up in the office. You can use the Zofran ODT for nausea. Return to us if worse or any new problems. Best- Dr. Cody Kay Prescriptions: Ondansetron ODT [Zofran ODT] 4 mg PO TID #30 odt Referrals: Carisa Armstrong MD [Primary Care Provider] - Follow up with primary Forms: [employer] ([place])
[2018-02-14 10:34] LABS: VENOUS BLOOD GAS BASE EXCESS 3.9 mmol/L (0.0-2.0); VENOUS BLOOD GAS PO2 47 mm/Hg (30-55); VENOUS BLOOD PH 7.38 (7.32-7.43)
[2018-02-14 10:37] LABS: BASO # 0.01 K/mm3 (0.0-2.0); BASO % 0.2 % (0.0-3.0); EOS # 0.1 (0.0-0.7); GRAN # 3.49 (1.4-6.5); GRAN % 59.2 % (50.0-68.0); HEMOGLOBIN 13.9 g/dL (12.0-16.0); LYMPH % 33.3 % (22.0-35.0); MEAN CELL VOLUME 86.5 fl (80.0-105.0); MEAN CORPUSCULAR HEMOGLOBIN 28.4 pg (25.0-35.0); MEAN CORPUSCULAR HGB CONC 32.8 g/dl (31.0-37.0); MEAN PLATELET VOLUME 10.1 fl (7.0-11.0); MONO # 0.4 (0.1-0.6); MONO % 6.3 % (1.0-6.0); RBC 4.9 10^6/uL (3.5-6.1); RED CELL DISTRIBUTION WIDTH 15.8 % (11.5-14.5); WHITE BLOOD COUNT 5.9 10^3/ul (4.5-11.0)
[2018-02-14 10:44] LABS: PROTHROMBIN TIME 11.5 SECONDS (9.4-12.5)
[2018-02-14 10:46] LABS: ALB/GLOB RATIO 1.1 (1.1-1.8); ALBUMIN 3.8 g/dL (3.0-4.8); ALT/SGPT 25 U/L (7-56); AST/SGOT 21 U/L (14-36); BLOOD UREA NITROGEN 21 mg/dL (7-21); CALCIUM 9.5 mg/dL (8.4-10.5); GFR AFRICAN-AMERICAN > 60; GFR NON-AFRICAN AMERICAN 58
[2018-02-14 10:57] LABS: B-TYPE NATRIURETIC PEPTIDE 306 pg/mL (0-450); TROPONIN I < 0.01 ng/mL
[2018-02-14 11:03] LABS: PH,URINE 6.5 (4.7-8.0); URINE APPEARANCE CLEAR (CLEAR); URINE BILIRUBIN NEGATIVE (NEGATIVE); URINE BLOOD NEGATIVE (NEGATIVE); URINE COLOR YELLOW (YELLOW); URINE GLUCOSE (UA) NEGATIVE (NEGATIVE); URINE LEUKOCYTE ESTERASE NEGATIVE Leu/uL (NEGATIVE); URINE PROTEIN NEGATIVE mg/dL (<30 mg/dL); URINE UROBILINOGEN 0.2 E.U./dL (<1 E.U./dL)
--- NOTE | 2018-02-14 12:36 | RAD ---
HISTORY: Dyspnea COMPARISON: 12/08/2017 FINDINGS: LUNGS: No active pulmonary disease. PLEURA: No significant pleural effusion identified, no pneumothorax apparent. CARDIOVASCULAR: Mild cardiomegaly. Single lead pacemaker OSSEOUS STRUCTURES: No significant abnormalities. VISUALIZED UPPER ABDOMEN: Normal. OTHER FINDINGS: None. IMPRESSION: No active disease.
[2018-02-14 13:04] VITALS: BP 125/80; PULSE 76
--- NOTE | 2018-02-15 09:51 | CARD ---
APPROVED REPORT EKG Measurement Heart [id number] IN [id number] <Conclusion> Normal sinus rhythm Minimal voltage criteria for LVH, may be normal variant STTW changes c/w ischemia, increased c/w ECG 12/08/17
== END 2018-02-14 13:20 | disposition home or self-care (01) ==
LOC: ED 09:12
DX: F41.9 Anxiety disorder, unspecified (principal); R11.0 Nausea; I11.0 Hypertensive heart disease with heart failure; I50.9 Heart failure, unspecified; Z95.0 Presence of cardiac pacemaker
CPT/HCPCS: 71045; 80053; 81003; 82550; 82803; 83615; 83880; 84484; 85025; 85610; 87040; 87086; 93005; 96374; 99285; J2405

== ENCOUNTER 2018-04-11 22:27 | Emergency (ER) | payer OTHER ==
[2018-04-11 22:29] VITALS: BMI 35.0
--- NOTE | 2018-04-11 22:55 | ED PDOC ---
Arrival/HPI - General Chief Complaint: Shortness Of Breath Time Seen by Provider: 04/11/18 22:31 Historian: Patient - History of Present Illness Narrative History of Present Illness (Text): 04/11/18 22:53 Pauline Martinez is a 52 year old, whose past medical history includes hypertension, CHF currently on heart transplant list, AICD placement, COPD, and diabetes, who presents to the Emergency department brought in by EMS accompanied by family complaining of shakiness. Patient states she began feeling very shaky with some associated shortness of breath prior to arrival. Patient notes she recently underwent a stress test at [facility] earlier today. Patient notes she also feels anxious. Patient denies any fever, chills, chest pain, nausea, vomiting, diarrhea, urinary symptoms, back pain, neck pain, headache, dizziness, or any other complaints. Symptom Onset: Gradual Symptom Course: Unchanged Activities at Onset: Light Context: Home Past Medical History - Provider Review Nursing Documentation Reviewed: Yes - Past History Past History: No Previous - Infectious Disease Hx of Infectious Diseases: None - Tetanus Immunization Tetanus Immunization: Unknown - Cardiac Hx Cardiac Disorders: Yes Hx Cardiac Arrhythmia: Yes Hx Congestive Heart Failure: Yes Hx Hypertension: Yes Hx Internal Defibrillator: Yes (2010) Hx Pacemaker: Yes Other/Comment: waiting list for heart transplant - Pulmonary Hx Respiratory Disorders: No Hx Chronic Obstructive Pulmonary Disease (COPD): No (denies) Hx Pneumonia: No (denies) Hx Sleep Apnea: No (denies) - Neurological Hx Neurological Disorder: Yes HX Cerebrovascular Accident: Yes - HEENT Hx HEENT Disorder: Yes (Wears glasses.) Hx Cataracts: No Hx Glaucoma: No Hx Macular Degeneration: No - Renal Hx Renal Disorder: No - Endocrine/Metabolic Hx Endocrine Disorders: No - Hematological/Oncological Hx Blood Disorders: Yes Hx Anemia: Yes (with blood transfusion) - Integumentary Hx Dermatological Disorder: No - Musculoskeletal/Rheumatological Hx Musculoskeletal Disorders: No Hx Falls: No - Gastrointestinal Hx Gastrointestinal Disorders: Yes Hx Gastroesophageal Reflux: Yes Hx Gastrointestinal Ulcer: Yes - Genitourinary/Gynecological Hx Genitourinary Disorders: No - Psychiatric Hx Psychophysiologic Disorder: No Hx Anxiety: Yes Hx Emotional Abuse: No Hx Physical Abuse: No Hx Substance Use: No - Surgical History Hx Cardiac Catheterization: Yes Hx Coronary Stent: No Other/Comment: defibrillator 2011 - Anesthesia Hx Anesthesia: Yes Hx Anesthesia Reactions: No Hx Malignant Hyperthermia: No - Suicidal Assessment Feels Threatened In Home Enviroment: No Family/Social History - Physician Review Nursing Documentation Reviewed: Yes Family/Social History: Unknown Family HX Smoking Status: Never Smoked Hx Alcohol Use: No Hx Substance Use: No Hx Substance Use Treatment: No Allergies/Home Meds Allergies/Adverse Reactions: Allergies acetaminophen Allergy (Verified 12/08/17 06:35) ANGIOEDEMA cefepime Allergy (Verified 12/08/17 06:35) ANAPHYLAXIS Home Medications: Home Meds Medication Instructions Recorded Confirmed Furosemide [Lasix] 40 mg PO BID 10/17/15 12/08/17 Spironolactone [Aldactone] 25 mg PO BID 03/29/16 12/08/17 Epinephrine HCl [Epipen 0.3 mg IM ONCE PRN 03/26/17 12/08/17 Auto-Injector] Sacubitril/Valsartan [Entresto 97 1 each PO BID 11/21/17 12/08/17 mg-103 mg Tablet] Review of Systems - Physician Review All systems were reviewed & negative as marked: Yes - Review of Systems Constitutional: Other (+shakiness). absent: Fevers Eyes: Normal ENT: Normal Respiratory: SOB. absent: Cough Cardiovascular: Normal. absent: Chest Pain Gastrointestinal: Normal. absent: Abdominal Pain, Diarrhea, Nausea, Vomiting Genitourinary Female: Normal. absent: Dysuria, Frequency, Hematuria, Urine Output Changes Musculoskeletal: Normal. absent: Back Pain, Neck Pain Skin: Normal. absent: Rash Neurological: Normal. absent: Headache, Dizziness Endocrine: Normal Hemo/Lymphatic: Normal Psychiatric: Anxiety Physical Exam Vital Signs Reviewed: Yes Vital Signs Temp Pulse Resp BP Pulse Ox 04/12/18 00:50 98.2 F 77 17 110/65 100 04/12/18 00:18 77 17 110/65 100 04/11/18 23:15 20 100 04/11/18 22:49 97.8 F 76 20 128/76 100 Temperature: Afebrile Blood Pressure: Normal Pulse: Regular Respiratory Rate: Normal Appearance: Positive for: Well-Appearing, Non-Toxic, Comfortable Pain Distress: None Mental Status: Positive for: Alert and Oriented X 3 - Systems Exam Head: Present: Atraumatic, Normocephalic Pupils: Present: PERRL Extroacular Muscles: Present: EOMI Conjunctiva: Present: Normal Mouth: Present: Moist Mucous Membranes Neck: Present: Normal Range of Motion Respiratory/Chest: Present: Clear to Auscultation, Good Air Exchange. No: Respiratory Distress, Accessory Muscle Use Cardiovascular: Present: Regular Rate and Rhythm, Normal S1, S2. No: Murmurs Abdomen: No: Tenderness, Distention, Peritoneal Signs Back: Present: Normal Inspection Upper Extremity: Present: Normal Inspection. No: Cyanosis, Edema Lower Extremity: Present: Normal Inspection. No: Edema Neurological: Present: GCS=15, CN II-XII Intact, Speech Normal Skin: Present: Warm, Dry, Normal Color. No: Rashes Psychiatric: Present: Alert, Oriented x 3, Normal Insight, Normal Concentration Medical Decision Making ED Course and Treatment: 04/11/18 22:53 Impression: 52 year old female complaining of shakiness, shortness of breath, and anxiety. Plan: -- EKG -- Chest X-Ray -- Labs, cardiac enzymes -- Urinalysis -- Ativan -- Reassess and disposition Prior Visits: Notes and results from previous visits were reviewed. Progress Notes: Reviewed EKG, NSR at 68 bpm. LVH. Prolonged QT. 04/12/18 00:10 Reviewed radiology, Chest X-Ray shows no acute processes. 04/12/18 00:45 On re-evaluation, patient feels better and is in no acute distress. I have discussed the results and plan with the patient, who expresses understanding. Patient in agreement with plan to be discharged home. Patient is stable for discharge. Patient was instructed to follow up with physician/clinic in 1-2 days or return if symptoms worsen or new concerning symptoms arise. - Lab Interpretations Lab Results: 04/11/18 23:23 04/11/18 23:23 Lab Results 04/11/18 23:23: Sodium 141, Potassium 4.0, Chloride 106, Carbon Dioxide 26, Anion Gap 14, BUN 18, Creatinine 1.0, Est GFR ( Amer) > 60, Est GFR (Non- Af Amer) 58, Random Glucose 102, Calcium 8.7, Magnesium 1.9, Total Bilirubin 0.2 , AST 20, ALT 25, Alkaline Phosphatase 74, Lactate Dehydrogenase 451, Total Creatine Kinase 31 L, Troponin I < 0.01, Total Protein 6.9, Albumin 3.6, Globulin 3.3, Albumin/Globulin Ratio 1.1 04/11/18 23:23: Urine Color Straw, Urine Appearance Clear, Urine pH 7.5, Ur Specific [place] 1.015, Urine Protein Negative, Urine Glucose (UA) Negative, Urine Ketones Negative, Urine Blood Negative, Urine Nitrate Negative, Urine Bilirubin Negative, Urine Urobilinogen 0.2, Ur Leukocyte Esterase Negative 04/11/18 23:23: WBC 5.6, RBC 4.20, Hgb 12.2, Hct 37.1, MCV 88.3, MCH 29.0, MCHC 32.9, RDW 15.2 H, Plt Count 266, MPV 10.2, Gran % 56.7, Lymph % (Auto) 35.5 H, [place] % (Auto) 6.4 H, Eos % (Auto) 1.2 L, Baso % (Auto) 0.2, Gran # 3.18, Lymph # (Auto) 2.0, [place] # (Auto) 0.4, Eos # (Auto) 0.1, Baso # (Auto) 0.01 I have reviewed the lab results: Yes - RAD Interpretation Radiology Orders: 04/11/18 23:03 CHEST PORTABLE [RAD] Stat Carpenter'S Helper: ED Physician - EKG Interpretation Interpreted by ED Physician: Yes Type: 12 lead EKG - Medication Orders Current Medication Orders: Discontinued Medications Lorazepam (Ativan) 0.5 mg PO ONCE ONE PRN Reason: Protocol Stop: 04/11/18 23:04 Last Admin: 04/11/18 23:27 Dose: 0.5 mg - Scribe Statement The provider has reviewed the documentation as recorded by the Jerry Merrill Provider Scribe Attestation: All medical record entries made by the Jerry were at my direction and personally dictated by me. I have reviewed the chart and agree that the record accurately reflects my personal performance of the history, physical exam, medical decision making, and the department course for this patient. I have also personally directed, reviewed, and agree with the discharge instructions and disposition. Disposition/Present on Arrival - Present on Arrival Any Indicators Present on Arrival: No History of DVT/PE: No History of Uncontrolled Diabetes: No Urinary Catheter: No History of Decub. Ulcer: No History Surgical Site Infection Following: None - Disposition Have Diagnosis and Disposition been Completed?: Yes Diagnosis: Anxiety Disposition: HOME/ ROUTINE Disposition Time: 00:45 Condition: GOOD Discharge Instructions (ExitCare): Anxiety, Adult (DC) Prescriptions: Lorazepam [Ativan] 1 mg PO HS #3 tab Referrals: Elijah Desir, [Non-Staff] - Follow up with primary Forms: [place] (Green[place]ic)
[2018-04-11 23:00] VITALS: O2SAT 100
[2018-04-11 23:37] LABS: ALB/GLOB RATIO 1.1 (1.1-1.8); ALBUMIN 3.6 g/dL (3.0-4.8); ALT/SGPT 25 U/L (7-56); AST/SGOT 20 U/L (14-36); BLOOD UREA NITROGEN 18 mg/dL (7-21); CALCIUM 8.7 mg/dL (8.4-10.5); GFR AFRICAN-AMERICAN > 60; GFR NON-AFRICAN AMERICAN 58
[2018-04-11 23:39] LABS: BASO # 0.01 K/mm3 (0.0-2.0); BASO % 0.2 % (0.0-3.0); EOS # 0.1 (0.0-0.7); EOS % 1.2 % (1.5-5.0); GRAN # 3.18 (1.4-6.5); GRAN % 56.7 % (50.0-68.0); HEMOGLOBIN 12.2 g/dL (12.0-16.0); LYMPH % 35.5 % (22.0-35.0); MEAN CELL VOLUME 88.3 fl (80.0-105.0); MEAN CORPUSCULAR HGB CONC 32.9 g/dl (31.0-37.0); MEAN PLATELET VOLUME 10.2 fl (7.0-11.0); MONO # 0.4 (0.1-0.6); MONO % 6.4 % (1.0-6.0); RBC 4.2 10^6/uL (3.5-6.1); RED CELL DISTRIBUTION WIDTH 15.2 % (11.5-14.5); WHITE BLOOD COUNT 5.6 10^3/ul (4.5-11.0)
[2018-04-11 23:41] LABS: PH,URINE 7.5 (4.7-8.0); URINE APPEARANCE CLEAR (CLEAR); URINE BILIRUBIN NEGATIVE (NEGATIVE); URINE BLOOD NEGATIVE (NEGATIVE); URINE COLOR STRAW (YELLOW); URINE GLUCOSE (UA) NEGATIVE (NEGATIVE); URINE LEUKOCYTE ESTERASE NEGATIVE Leu/uL (NEGATIVE); URINE PROTEIN NEGATIVE mg/dL (<30 mg/dL); URINE UROBILINOGEN 0.2 E.U./dL (<1 E.U./dL)
[2018-04-11 23:48] LABS: TROPONIN I < 0.01 ng/mL
[2018-04-12 00:19] VITALS: BP 110/65; PULSE 77; RESP 17
[2018-04-12 00:51] VITALS: TEMP 98.2
--- NOTE | 2018-04-12 08:22 | RAD ---
HISTORY: sob COMPARISON: 02/14/2018 FINDINGS: LUNGS: No active pulmonary disease. PLEURA: No significant pleural effusion identified, no pneumothorax apparent. CARDIOVASCULAR: Moderate cardiomegaly. Single lead pacemaker OSSEOUS STRUCTURES: No significant abnormalities. VISUALIZED UPPER ABDOMEN: Normal. OTHER FINDINGS: None. IMPRESSION: No active disease.
--- NOTE | 2018-04-12 12:44 | CARD ---
APPROVED REPORT EKG Measurement Heart [id number] [id number] <Conclusion> Normal sinus rhythm Moderate voltage criteria for LVH Prolonged QT Improved repolarization c/w 02/14/18
== END 2018-04-12 00:51 | disposition home or self-care (01) ==
LOC: ED 22:27
DX: F41.9 Anxiety disorder, unspecified (principal); I11.0 Hypertensive heart disease with heart failure; I50.9 Heart failure, unspecified; E11.9 Type 2 diabetes mellitus without complications; D64.9 Anemia, unspecified; Z95.810 Presence of automatic (implantable) cardiac defibrillator; Z86.73 Personal history of transient ischemic attack (TIA), and cerebral infarction without residual deficits

== ENCOUNTER 2018-05-13 12:23 | Observation (INO) | payer OTHER ==
[2018-05-13 12:23] VITALS: BMI 35.0
--- NOTE | 2018-05-13 12:29 | ED PDOC ---
Arrival/HPI - General Time Seen by Provider: 05/13/18 12:27 Historian: Patient - History of Present Illness Narrative History of Present Illness (Text): 05/13/18 12:30 53 year old female, whose PMH includes CHF, hypertension, pacemaker, CVA, and cardiac cathertization, who presents to the emergency department complaining of severe lower abdominal cramping associated with vaginal bleeding since 2 days ago. Patient reports these symptoms occur every 2 weeks, but the bleeding is worse then previous episodes. Patient notes using 5 pads last night and complaints of lightheadedness, fatigue, and vaginal bleeding with clots. Patient took Motrin this morning for pain. She denies fever, shortness of breath , vomiting, hematochezia, dysuria, back pain, or other complaints. LMP: May 03 2018. PMD: Dr. Ro Plans Examiner: Dr. Mazariegos [facility] ([place]) on wait list for heart transplant Time/Duration: < week Symptom Onset: Gradual Symptom Course: Worsening Quality: Cramping Severity Level: Severe Activities at Onset: Rest Context: Home Past Medical History - Provider Review Nursing Documentation Reviewed: Yes - Past History Past History: No Previous - Infectious Disease Hx of Infectious Diseases: None - Tetanus Immunization Tetanus Immunization: Unknown - Cardiac Hx Cardiac Disorders: Yes Hx Cardiac Arrhythmia: Yes Hx Congestive Heart Failure: Yes Hx Hypertension: Yes Hx Internal Defibrillator: Yes (2010) Hx Pacemaker: Yes Other/Comment: waiting list for heart transplant - Pulmonary Hx Respiratory Disorders: No Hx Chronic Obstructive Pulmonary Disease (COPD): No (denies) Hx Pneumonia: No (denies) Hx Sleep Apnea: No (denies) - Neurological Hx Neurological Disorder: Yes HX Cerebrovascular Accident: Yes - HEENT Hx HEENT Disorder: Yes (Wears glasses.) Hx Cataracts: No Hx Glaucoma: No Hx Macular Degeneration: No - Renal Hx Renal Disorder: No - Endocrine/Metabolic Hx Endocrine Disorders: No - Hematological/Oncological Hx Blood Disorders: Yes Hx Anemia: Yes (with blood transfusion) - Integumentary Hx Dermatological Disorder: No - Musculoskeletal/Rheumatological Hx Musculoskeletal Disorders: No Hx Falls: No - Gastrointestinal Hx Gastrointestinal Disorders: Yes Hx Gastroesophageal Reflux: Yes Hx Gastrointestinal Ulcer: Yes - Genitourinary/Gynecological Hx Genitourinary Disorders: No - Psychiatric Hx Psychophysiologic Disorder: No Hx Anxiety: Yes Hx Emotional Abuse: No Hx Physical Abuse: No Hx Substance Use: No - Surgical History Hx Cardiac Catheterization: Yes Hx Coronary Stent: No Other/Comment: defibrillator 2011 - Anesthesia Hx Anesthesia: Yes Hx Anesthesia Reactions: No Hx Malignant Hyperthermia: No - Suicidal Assessment Feels Threatened In Home Enviroment: No Family/Social History - Physician Review Nursing Documentation Reviewed: Yes Family/Social History: Unknown Family HX Smoking Status: Never Smoked Hx Alcohol Use: No Hx Substance Use: No Hx Substance Use Treatment: No Allergies/Home Meds Allergies/Adverse Reactions: Allergies acetaminophen Allergy (Verified 05/13/18 12:31) ANGIOEDEMA cefepime Allergy (Verified 05/13/18 12:31) ANAPHYLAXIS Home Medications: Home Meds Medication Instructions Recorded Confirmed Furosemide [Lasix] 40 mg PO BID 10/17/15 05/13/18 Spironolactone [Aldactone] 25 mg PO BID 03/29/16 05/13/18 Epinephrine HCl [Epipen 0.3 mg IM ONCE PRN 03/26/17 05/13/18 Auto-Injector] Sacubitril/Valsartan [Entresto 97 1 each PO BID 11/21/17 05/13/18 mg-103 mg Tablet] Review of Systems - Review of Systems Constitutional: Fatigue. absent: Fevers Respiratory: absent: SOB, Cough Cardiovascular: absent: Chest Pain Gastrointestinal: Abdominal Pain. absent: Vomiting, Hematochezia Genitourinary Female: Vaginal Bleeding. absent: Dysuria Musculoskeletal: absent: Back Pain Skin: absent: Rash Neurological: Dizziness (lightheadedness). absent: Headache Endocrine: absent: Diaphoresis Physical Exam Vital Signs Reviewed: Yes Vital Signs Temp Pulse Resp BP Pulse Ox 05/13/18 18:28 85 18 138/90 99 05/13/18 15:35 69 18 135/64 100 05/13/18 13:39 74 18 138/69 100 05/13/18 12:32 98.7 F 85 18 146/75 100 Temperature: Afebrile Blood Pressure: Normal Pulse: Regular Respiratory Rate: Normal Appearance: Positive for: Well-Appearing, Non-Toxic, Comfortable Pain Distress: None Mental Status: Positive for: Alert and Oriented X 3 - Systems Exam Head: Present: Atraumatic, Normocephalic Pupils: Present: PERRL Extroacular Muscles: Present: EOMI Conjunctiva: Present: Injected Mouth: Present: Moist Mucous Membranes Respiratory/Chest: Present: Clear to Auscultation, Good Air Exchange. No: Respiratory Distress, Accessory Muscle Use, Wheezes, Decreased Breath Sounds, Rales, Retracting, Rhonchi Cardiovascular: Present: Regular Rate and Rhythm, Normal S1, S2. No: Murmurs Abdomen: Present: Tenderness (lower abdominal tenderness), Normal Bowel Sounds, Guarding. No: Distention, Peritoneal Signs, Rebound Genitourinary/Pelvic Exam: Present: Vaginal Bleeding (moderate vaginal bleeding with clots), Other (food service agent: Juliana ). No: Vaginal Lesions, Adenexal Tenderness, Cervical Motion Tendernes Neurological: Present: GCS=15, CN II-XII Intact, Speech Normal, Motor Func Grossly Intact, Normal Sensory Function Skin: Present: Warm, Dry, Normal Color. No: Rashes Psychiatric: Present: Alert, Oriented x 3, Normal Insight, Normal Concentration Medical Decision Making ED Course and Treatment: 05/13/18 Impression: 53 year old female with lower abdominal tenderness and guarding complaining of abdominal cramping and vaginal bleeding since 2 days. Differential Diagnosis included but are not limited to: Menometrorrhagia r/o Anemia Plan: -- Labs -- Ultrasound -- Sodium Chloride -- Reassess and disposition Progress Notes: 05/13/18 14:02 CBC has Hgb of 10. Will repeat CBC in 4 hours. 05/13/18 15:30 Abdominal Ultrasound: Creator : DR. Kowalski, Domingo KIMBLE COMPARISON: 01/12/2017 pelvic FINDINGS: UTERUS: Measures 9.2 x 5.8 x 10.3 cm. Normal in size, heterogeneous echo characteristics. No fibroid or other mass lesion seen. ENDOMETRIUM: Measures 5.4 mm in diameter. Unremarkable. CERVIX: No cervical abnormality identified. Ultrasound Incidental finding: Nabothian cysts the largest measures 1.1 x 1.9 cm RIGHT OVARY: Measures 1.4 x 3.5 x 2.9 cm. No solid mass. Normal flow. Multiple subcentimeter follicles. Two additional larger cyst 1.1 x 1.5 cm and 1.9 x 2 cm identified. LEFT OVARY: Measures 1.9 x 3.5 x 3.9 cm. No solid mass. Normal flow. Multiple subcentimeter follicles. FREE FLUID: No significant free fluid noted. OTHER FINDINGS: None. IMPRESSION: Unremarkable uterus and endometrial echo complex. Bilateral subcentimeter follicles. Slightly larger cysts (2) identified right adnexa. 05/13/18 18:57 Case was discussed with ENOC Wills manager business information who states that if we discharge home patient can be discharge with or without Aygestin or Provera andcan follow up with OBGYN. Considering patient has a history of CHF, on a transplant list, with a HGB that dropped by 2 in one month and by 1 in 4 hours, and having moderate/heavy bleeding with clots, we will admit for observation to Dr. Dennis service covering for Dr. Armstrong. He requested Dr. Carey on consult. Patient agrees to admission. - Lab Interpretations Lab Results: 05/13/18 17:13 05/13/18 12:42 Lab Results 05/13/18 17:13: WBC 5.6, RBC 3.35 L, Hgb 9.7 L, Hct 29.1 L, MCV 86.9, MCH 29.0, MCHC 33.3, RDW 13.9, Plt Count 262, MPV 9.4, Gran % 58.0, Lymph % (Auto) 33.5, [place] % (Auto) 6.0, Eos % (Auto) 2.3, Baso % (Auto) 0.2, Gran # 3.27, Lymph # ( Auto) 1.9, Oxford # (Auto) 0.3, Eos # (Auto) 0.1, Baso # (Auto) 0.01 05/13/18 12:42: PT 11.2, INR 0.97, APTT 29.4 05/13/18 12:42: Blood Type Pending, Antibody Screen Pending, BBK History Checked Patient has bt 05/13/18 12:42: Sodium 141, Potassium 4.2, Chloride 106, Carbon Dioxide 25, Anion Gap 14, BUN 20, Creatinine 0.8, Est GFR ( Amer) > 60, Est GFR (Non- Af Amer) > 60, Random Glucose 86, Calcium 8.9, Total Bilirubin 0.3, AST 14 D, ALT 18, Alkaline Phosphatase 66, Total Protein 6.5, Albumin 3.4, Globulin 3.0, Albumin/Globulin Ratio 1.1 05/13/18 12:42: WBC 6.3, RBC 3.71, Hgb 10.7 L, Hct 32.3 L, MCV 87.1, MCH 28.8, MCHC 33.1, RDW 13.9, Plt Count 299, MPV 9.9, Gran % 54.9, Lymph % (Auto) 33.3, Oxford % (Auto) 9.4 H, Eos % (Auto) 2.2, Baso % (Auto) 0.2, Gran # 3.46, Lymph # ( Auto) 2.1, Oxford # (Auto) 0.6, Eos # (Auto) 0.1, Baso # (Auto) 0.01 - RAD Interpretation Radiology Orders: 05/13/18 12:35 TRANSVAGINAL [US] Stat - Medication Orders Current Medication Orders: Carvedilol (Coreg) 25 mg PO BID NESTOR Furosemide (Lasix) 40 mg PO BID NESTOR Sodium Chloride (Sodium Chloride 0.9%) 500 mls @ 150 mls/hr IV .Q3H20M NESTOR Last Admin: 05/13/18 13:14 Dose: 150 mls/hr eMAR Start Stop Document 05/13/18 13:14 G[facility] (Rec: 05/13/18 13:14 [email or web address] Intravenous Solution Start Date 05/13/18 Start Time 13:14 End Date 05/13/18 End time 16:34 Total Infusion Time 200 Lorazepam (Ativan) 1 mg PO HS NESTOR PRN Reason: Protocol Magnesium Oxide (Mag-Ox) 400 mg PO BID NESTOR Pantoprazole Sodium (Protonix Ec Tab) 40 mg PO DAILY NESTOR Spironolactone (Aldactone) 25 mg PO BID [facility] Discontinued Medications Ketorolac Tromethamine (Toradol) 30 mg IVP STAT STA Stop: 05/13/18 14:04 Last Admin: 05/13/18 15:17 Dose: 30 mg MAR Pain Assessment Document 05/13/18 15:17 GMD (Rec: 05/13/18 15:17 [email or web address] Pain Reassessment Is this a pain reassessment? No Presence of Pain Presence of Pain Yes IVP Administration Document 05/13/18 15:17 GMD (Rec: 05/13/18 15:17 G[email or web address] Charges for Administration # of IVP Administrations 1 Lorazepam (Ativan) 1 mg PO ONCE ONE PRN Reason: Protocol Stop: 05/13/18 14:46 Last Admin: 05/13/18 15:17 Dose: 1 mg - Scribe Statement The provider has reviewed the documentation as recorded by the Jerry Naranjo Provider Jerry Attestation: All medical record entries made by the Jerry were at my direction and personally dictated by me. I have reviewed the chart and agree that the record accurately reflects my personal performance of the history, physical exam, medical decision making, and the department course for this patient. I have also personally directed, reviewed, and agree with the discharge instructions and disposition. Disposition/Present on Arrival - Present on Arrival Any Indicators Present on Arrival: No History of DVT/PE: No History of Uncontrolled Diabetes: No Urinary Catheter: No History Surgical Site Infection Following: None - Disposition Have Diagnosis and Disposition been Completed?: Yes Diagnosis: Menometrorrhagia Disposition: HOSPITALIZED Disposition Time: 19:03 Patient Plan: Admission Condition: FAIR
[2018-05-13] MEDS: Sodium Chloride 0.9% 500 ML IV SCH ×2 (13:14→23:36)
[2018-05-13 13:32] LABS: ALB/GLOB RATIO 1.1 (1.1-1.8); ALBUMIN 3.4 g/dL (3.0-4.8); ALT/SGPT 18 U/L (7-56); AST/SGOT 14 U/L (14-36); BLOOD UREA NITROGEN 20 mg/dL (7-21); CALCIUM 8.9 mg/dL (8.4-10.5); GFR AFRICAN-AMERICAN > 60; GFR NON-AFRICAN AMERICAN > 60
[2018-05-13 13:36] LABS: INR 0.97 (0.93-1.08); PARTIAL THROMBOPLASTIN TIME 29.4 Seconds (25.1-36.5); PROTHROMBIN TIME 11.2 SECONDS (9.4-12.5)
[2018-05-13 13:40] LABS: BASO # 0.01 K/mm3 (0.0-2.0); BASO % 0.2 % (0.0-3.0); EOS # 0.1 (0.0-0.7); EOS % 2.2 % (1.5-5.0); GRAN # 3.46 (1.4-6.5); GRAN % 54.9 % (50.0-68.0); HEMOGLOBIN 10.7 g/dL (12.0-16.0); LYMPH # 2.1 (1.2-3.4); LYMPH % 33.3 % (22.0-35.0); MEAN CELL VOLUME 87.1 fl (80.0-105.0); MEAN CORPUSCULAR HEMOGLOBIN 28.8 pg (25.0-35.0); MEAN CORPUSCULAR HGB CONC 33.1 g/dl (31.0-37.0); MEAN PLATELET VOLUME 9.9 fl (7.0-11.0); MONO # 0.6 (0.1-0.6); MONO % 9.4 % (1.0-6.0); RBC 3.71 10^6/uL (3.5-6.1); RED CELL DISTRIBUTION WIDTH 13.9 % (11.5-14.5); WHITE BLOOD COUNT 6.3 10^3/ul (4.5-11.0)
--- NOTE | 2018-05-13 15:26 | US ---
HISTORY: Lower abdominal pain, vaginal bleeding. Duration of symptoms: Three days LMP 2 months ago. COMPARISON: 01/12/2017 pelvic TECHNIQUE: FINDINGS: UTERUS: Measures 9.2 x 5.8 x 10.3 cm. Normal in size, heterogeneous echo characteristics. No fibroid or other mass lesion seen. ENDOMETRIUM: Measures 5.4 mm in diameter. Unremarkable. CERVIX: No cervical abnormality identified. Ultrasound Incidental finding: Nabothian cysts the largest measures 1.1 x 1.9 cm RIGHT OVARY: Measures 1.4 x 3.5 x 2.9 cm. No solid mass. Normal flow. Multiple subcentimeter follicles. Two additional larger cyst 1.1 x 1.5 cm and 1.9 x 2 cm identified. LEFT OVARY: Measures 1.9 x 3.5 x 3.9 cm. No solid mass. Normal flow. Multiple subcentimeter follicles. FREE FLUID: No significant free fluid noted. OTHER FINDINGS: None. IMPRESSION: Unremarkable uterus and endometrial echo complex. Bilateral subcentimeter follicles. Slightly larger cysts (2) identified right adnexa.
[2018-05-13 17:31] LABS: BASO # 0.01 K/mm3 (0.0-2.0); BASO % 0.2 % (0.0-3.0); EOS # 0.1 (0.0-0.7); EOS % 2.3 % (1.5-5.0); GRAN # 3.27 (1.4-6.5); HEMOGLOBIN 9.7 g/dL (12.0-16.0); LYMPH # 1.9 (1.2-3.4); LYMPH % 33.5 % (22.0-35.0); MEAN CELL VOLUME 86.9 fl (80.0-105.0); MEAN CORPUSCULAR HGB CONC 33.3 g/dl (31.0-37.0); MEAN PLATELET VOLUME 9.4 fl (7.0-11.0); MONO # 0.3 (0.1-0.6); RBC 3.35 10^6/uL (3.5-6.1); RED CELL DISTRIBUTION WIDTH 13.9 % (11.5-14.5); WHITE BLOOD COUNT 5.6 10^3/ul (4.5-11.0)
[2018-05-13 22:03] VITALS: O2SAT 98
[2018-05-14 07:15] LABS: HEMOGLOBIN 9.6 g/dL (12.0-16.0); MEAN CELL VOLUME 86.2 fl (80.0-105.0); MEAN CORPUSCULAR HEMOGLOBIN 28.2 pg (25.0-35.0); MEAN CORPUSCULAR HGB CONC 32.8 g/dl (31.0-37.0); MEAN PLATELET VOLUME 9.6 fl (7.0-11.0); RBC 3.4 10^6/uL (3.5-6.1); WHITE BLOOD COUNT 4.7 10^3/ul (4.5-11.0)
[2018-05-14 08:07] VITALS: RESP 18; TEMP 98
[2018-05-14 09:12] VITALS: BP 118/85; PULSE 88
[2018-05-14] MEDS ORDERED: Pantoprazole 40 mg EC Tab PO SCH (10:00)
[2018-05-14] MEDS ORDERED: Magnesium Oxide 400 mg Tab UD PO SCH (10:00)
--- NOTE | 2018-05-15 09:47 | HP ---
The patient is 53-year-old female. The patient came in the Emergency Room and was not seeing me, signed against medical advice. The patient came with vaginal bleeding and anemia. Plan was that the patient will stay, I will see the patient and we will call LIFE EDUCATOR consult, but the patient signed against medical advice. The patient knows that she has cardiomyopathy, anemia, rheumatic problem, but still she signed against medical advice. She said she wants to see own LIFE EDUCATOR, but hospital LIFE EDUCATOR phone number was given and the patient was advised to follow up with my office, but on this admission, I never saw the patient so I cannot do H&P and discharge summary. Carisa Armstrong MD
== END 2018-05-14 13:55 | disposition left against medical advice (07) ==
LOC: ED 12:23 → ERH 18:43 → 5RNO 20:41
PROVIDERS: ADMIT Internal Medicine Nephrology; ATTEND Internal Medicine
DX: N92.1 Excessive and frequent menstruation with irregular cycle (principal); I11.0 Hypertensive heart disease with heart failure; D64.9 Anemia, unspecified; I50.9 Heart failure, unspecified; K21.9 Gastro-esophageal reflux disease without esophagitis; Z87.11 Personal history of peptic ulcer disease; Z86.73 Personal history of transient ischemic attack (TIA), and cerebral infarction without residual deficits; Z95.0 Presence of cardiac pacemaker; I42.9 Cardiomyopathy, unspecified
CPT/HCPCS: 36415; 76830; 80053; 85025; 85027; 85610; 85730; 86850; 86870; 86900; 87491; 87591; 96360; 96361; 96374; 99285; G0378; J1885; J7040

== ENCOUNTER 2018-08-02 17:52 | Inpatient (IN) | payer OTHER ==
[2018-08-02 17:54] VITALS: BMI 35.0
[2018-08-02] MEDS ORDERED: Sodium Chloride 0.9% 500 ML IV STA ×2 (18:20→21:59)
[2018-08-02 18:37] LABS: BASO # 0.01 K/mm3 (0.0-2.0); BASO % 0.1 % (0.0-3.0); EOS # 0.1 (0.0-0.7); EOS % 1.5 % (1.5-5.0); GRAN # 5.66 (1.4-6.5); GRAN % 77.3 % (50.0-68.0); HEMOGLOBIN 9.9 g/dL (12.0-16.0); LYMPH # 1.1 (1.2-3.4); LYMPH % 14.7 % (22.0-35.0); MEAN CELL VOLUME 78.5 fl (80.0-105.0); MEAN CORPUSCULAR HEMOGLOBIN 24.4 pg (25.0-35.0); MEAN CORPUSCULAR HGB CONC 31.1 g/dl (31.0-37.0); MEAN PLATELET VOLUME 9.8 fl (7.0-11.0); MONO # 0.5 (0.1-0.6); MONO % 6.4 % (1.0-6.0); RBC 4.05 10^6/uL (3.5-6.1); RED CELL DISTRIBUTION WIDTH 15.2 % (11.5-14.5); WHITE BLOOD COUNT 7.3 10^3/ul (4.5-11.0)
[2018-08-02 18:39] LABS: VENOUS BLOOD GAS BASE EXCESS -0.8 mmol/L (0.0-2.0); VENOUS BLOOD GAS PO2 111 mm/Hg (30-55); VENOUS BLOOD PH 7.41 (7.32-7.43)
[2018-08-02 18:42] LABS: INR 0.92; PARTIAL THROMBOPLASTIN TIME 32.2 Seconds (25.1-36.5); PROTHROMBIN TIME 10.5 SECONDS (9.4-12.5)
[2018-08-02 18:44] LABS: BLOOD UREA NITROGEN 15 mg/dL (7-21); CALCIUM 9.1 mg/dL (8.4-10.5); GFR NON-AFRICAN AMERICAN 58
--- NOTE | 2018-08-02 18:45 | ED PDOC ---
Arrival/HPI - General Chief Complaint: GI Problem Time Seen by Provider: 08/02/18 18:01 Historian: Patient - History of Present Illness Narrative History of Present Illness (Text): 08/02/18 18:20 53 year old female, with past medical history of diabetes, hypertension, CHF currently on Lasix, COPD, pacemaker, CVA and currently on heart transplant list, presents to the Emergency Department complaining of hematemesis since 4 hours. Patient states she has been vomiting blood consisting of clots and food for past few hours without any improvement to symptoms. Patient informs associated shortness of breath, nausea and swollen throat secondary to emesis. Patient denies any fever, chills, diarrhea, abdominal pain, chest pain, headache, dizziness, neck pain, back pain, leg swelling or any other complains. Patient informs receiving blood transfusion in the past. PMD: Dr. Daley Retail Supervisor: Dr. Beckwith 08/02/18 21:44 As per granddaughter who just arrived, patient also has a history of lee's esophagus. Time/Duration: 4-6 hours Symptom Onset: Gradual Symptom Course: Unchanged Activities at Onset: Light Context: Home Past Medical History - Provider Review Nursing Documentation Reviewed: Yes - Past History Past History: No Previous - Infectious Disease Hx of Infectious Diseases: None - Tetanus Immunization Tetanus Immunization: Unknown - Cardiac Hx Cardiac Disorders: Yes Hx Cardiac Arrhythmia: Yes Hx Congestive Heart Failure: Yes Hx Hypertension: Yes Hx Internal Defibrillator: Yes (2010) Hx Pacemaker: Yes Other/Comment: waiting list for heart transplant - Pulmonary Hx Respiratory Disorders: No - Neurological Hx Neurological Disorder: Yes HX Cerebrovascular Accident: Yes - HEENT Hx HEENT Disorder: Yes (Wears glasses.) - Renal Hx Renal Disorder: No - Endocrine/Metabolic Hx Endocrine Disorders: No - Hematological/Oncological Hx Blood Disorders: Yes Hx Anemia: Yes (with blood transfusion) - Integumentary Hx Dermatological Disorder: No - Musculoskeletal/Rheumatological Hx Falls: No - Gastrointestinal Hx Gastrointestinal Disorders: Yes Hx Gastroesophageal Reflux: Yes Hx Gastrointestinal Ulcer: Yes - Genitourinary/Gynecological Hx Genitourinary Disorders: No - Psychiatric Hx Psychophysiologic Disorder: Yes Hx Anxiety: Yes Hx Substance Use: No - Surgical History Hx Cardiac Catheterization: Yes Other/Comment: defibrillator 2010 - Anesthesia Hx Anesthesia: Yes Hx Anesthesia Reactions: No Hx Malignant Hyperthermia: No - Suicidal Assessment Feels Threatened In Home Enviroment: No Family/Social History - Physician Review Nursing Documentation Reviewed: Yes Family/Social History: No Known Family HX Smoking Status: Never Smoked Hx Alcohol Use: No Hx Substance Use: No Hx Substance Use Treatment: No Allergies/Home Meds Allergies/Adverse Reactions: Allergies acetaminophen Allergy (Verified 05/13/18 12:31) ANGIOEDEMA cefepime Allergy (Verified 05/13/18 12:31) ANAPHYLAXIS Home Medications: Home Meds Medication Instructions Recorded Confirmed Furosemide [Lasix] 40 mg PO BID 10/17/15 05/13/18 Spironolactone [Aldactone] 25 mg PO BID 03/29/16 05/13/18 Epinephrine HCl [Epipen 0.3 mg IM ONCE PRN 03/26/17 05/13/18 Auto-Injector] Sacubitril/Valsartan [Entresto 97 1 each PO BID 11/21/17 05/13/18 mg-103 mg Tablet] Review of Systems - Physician Review All systems were reviewed & negative as marked: Yes - Review of Systems Constitutional: absent: Fevers Respiratory: SOB Cardiovascular: absent: Chest Pain Gastrointestinal: Nausea, Hematemesis. absent: Abdominal Pain, Diarrhea Musculoskeletal: absent: Back Pain, Neck Pain Neurological: absent: Headache, Dizziness Physical Exam Vital Signs Reviewed: Yes Vital Signs Temp Pulse Resp BP Pulse Ox 08/02/18 18:11 99.5 F 115 H 20 142/106 H 100 Temperature: Afebrile Blood Pressure: Hypertensive Pulse: Tachycardic Respiratory Rate: Normal Appearance: Positive for: Well-Appearing, Non-Toxic, Comfortable Pain Distress: None Mental Status: Positive for: Alert and Oriented X 3 - Systems Exam Head: Present: Atraumatic, Normocephalic Pupils: Present: PERRL Extroacular Muscles: Present: EOMI Conjunctiva: Present: Normal Mouth: Present: Moist Mucous Membranes Pharnyx: Present: Normal. No: ERYTHEMA, Uvular Deviation Neck: Present: Normal Range of Motion Respiratory/Chest: Present: Clear to Auscultation, Good Air Exchange. No: Respiratory Distress, Accessory Muscle Use Cardiovascular: Present: Regular Rate and Rhythm, Normal S1, S2. No: Murmurs Abdomen: No: Tenderness, Distention, Peritoneal Signs Back: Present: Normal Inspection Upper Extremity: Present: Normal Inspection. No: Cyanosis, Edema Lower Extremity: Present: Normal Inspection. No: Edema Neurological: Present: GCS=15, CN II-XII Intact, Speech Normal Skin: Present: Warm, Dry, Normal Color. No: Rashes Psychiatric: Present: Alert, Oriented x 3, Normal Insight, Normal Concentration Medical Decision Making ED Course and Treatment: 08/02/18 18:20 Impression: 53 year old female presents to the Emergency Department complaining of hematemesis. Differential Diagnosis included but are not limited to: Upper GI bleed vs. PE Plan: -- VBG -- CTA Chest -- CT of Soft Tissue Neck -- EKG -- Labs -- Chest X-ray -- IV fluids -- Blood Culture -- Urinalysis -- Reassess and disposition Prior Visits: Notes and results from previous visits were reviewed. Progress Notes: 08/02/18 18:43 Patient was complaining that her throat felt very swollen. Solumedrol IV ordered. 08/02/18 18:55 Patient was complaining of pain in her throat/neck s/p vomiting. Morphine 2mg IV. In light of vomiting blood will not give Toradol. Patient is allergic to Acetaminophen. 08/02/18 19:47 Patient continued to have nausea so Reglan IV ordered. 08/02/18 21:20 Morphine 2mg IV ordered for pain. Hamlet (Patient's granddaughter): [phone] Priscila (Patient's daughter): [phone] CT- Neck Soft Tissue Electronically signed on Aug 02, 2018 9:56:11 PM EDT by: Lyudmila Fair M.D., Certified by [facility], Diagnostic Radiologist Impression: Diffuse thickening of the aryepiglottic fold. CTA Chest for PE Electronically signed on Aug 02, 2018 10:02:30 PM EDT by: Lyudmila Fair M.D., Certified by [facility], Diagnostic Radiologist Impression: No evidence of pulmonary embolism. Ultrasound recommended to further evaluate heterogeneity of the thyroid gland. Cardiomegaly. 08/02/18 22:20: Case including CT Neck Soft Tissue discussed in detail with Dr. Shaffer who states that there is nothing to do at this time. Eventually will need follow up as outpatient to take a look at the aryepiglottic fold. 08/02/18 22:23: Case discussed in detail with medical voucher clerk. 08/02/18 22:25: Case discussed in detail with Dr. Ricardo Sherwood, covering for the ICU, accepts the patient for admission to the ICU. 08/02/18 23:01: Case discussed in detail with Dr. Armstrong who requested Dr. Adams for GI. Patient agreed to Dr. Hill for Cardiology who saw her on last admission. - Critical Care Critical Care Minutes: 60 minutes - RAD Interpretation Radiology Orders: 08/02/18 18:21 CHEST PORTABLE [RAD] Stat - Medication Orders Current Medication Orders: Sodium Chloride (Sodium Chloride 0.9%) 500 mls @ 999 mls/hr IV .Q31M STA Stop: 08/02/18 18:50 Last Admin: 08/02/18 18:27 Dose: 999 mls/hr eMAR Start Stop Document 08/02/18 18:27 [facility] (Rec: 08/02/18 18:27 [id number] Intravenous Solution Start Date 08/02/18 Start Time 18:27 End Date 08/02/18 End time 19:00 Total Infusion Time 33 Discontinued Medications Ondansetron HCl (Zofran Inj) 4 mg IVP STAT STA Stop: 08/02/18 18:23 Last Admin: 08/02/18 18:27 Dose: 4 mg IVP Administration Document 08/02/18 18:27 [facility] (Rec: 08/02/18 18:27 [id number] Charges for Administration # of IVP Administrations 1 Pantoprazole Sodium (Protonix Inj) 80 mg IVP STAT STA Stop: 08/02/18 18:23 Last Admin: 08/02/18 18:27 Dose: 80 mg IVP Administration Document 08/02/18 18:27 [facility] (Rec: 08/02/18 18:27 [id number] Charges for Administration # of IVP Administrations 1 - Scribe Statement The provider has reviewed the documentation as recorded by the Salmaibarvind John. All medical record entries made by the Scribe were at my direction and personally dictated by me. I have reviewed the chart and agree that the record accurately reflects my personal performance of the history, physical exam, medical decision making, and the department course for this patient. I have also personally directed, reviewed, and agree with the discharge instructions and disposition. Disposition/Present on Arrival - Present on Arrival Any Indicators Present on Arrival: No History of DVT/PE: No History of Uncontrolled Diabetes: No Urinary Catheter: No History of Decub. Ulcer: No History Surgical Site Infection Following: None - Disposition Have Diagnosis and Disposition been Completed?: Yes Diagnosis: Hematemesis, Vomiting Disposition: HOSPITALIZED Disposition Time: 23:07 Patient Plan: Admission Condition: GUARDED
[2018-08-02 18:52] LABS: PH,URINE 6.5 (4.7-8.0); URINE BILIRUBIN NEGATIVE (NEGATIVE); URINE BLOOD LARGE (NEGATIVE); URINE GLUCOSE (UA) NEGATIVE (NEGATIVE); URINE LEUKOCYTE ESTERASE SMALL Leu/uL (NEGATIVE); URINE PROTEIN 100 mg/dL (<30 mg/dL); URINE UROBILINOGEN 0.2 E.U./dL (<1 E.U./dL)
[2018-08-02 18:53] LABS: URINE APPEARANCE SLIGHT-CLOUDY (CLEAR); URINE COLOR DARK YELLOW (YELLOW)
[2018-08-02 18:55] LABS: B-TYPE NATRIURETIC PEPTIDE 957 pg/mL (0-450); TROPONIN I < 0.01 ng/mL
[2018-08-02] MEDS ORDERED: Morphine 2 mg/ml ISec IVP STA ×2 (18:57→21:20)
[2018-08-02 19:01] LABS: URINE BACTERIA SMALL (NEG); URINE HYALINE CAST 0 - 2 /hpf
--- NOTE | 2018-08-02 23:16 | CP.PCM.CON ---
History of Present Illness - History of Present Illness History of Present Illness: Neel Rollins PGY1, ICU consult note for Dr Georgette Sherwood. Pt is a 53yo female with a PMH of DM, HTN, CHF on Lasix, COPD, pacemaker, CVA, on heart transplant list, and Behcet's Syndrome who presents to the ED compl aining of nausea and vomiting bright red blood since 4pm today. Pt has difficulty speaking, and reports feeling like she is gagging, going to vomit when she talks. Most of the history is obtained from her . Pt states she has vomited numerous times today which started when she was trying to swallow her medications. She denies any other provoking event. She is also complaining of throat pain which is worse when she tries to swallow or speak. Pt denies chest pain, SOB, abdominal pain, diarrhea, constipation, or urinary symptoms. 12 Point ROS was obtained and added to the HPI where appropriate. PMH: DM, HTN, CHF on Lasix, COPD, pacemaker, CVA, on heart transplant list, and Behcet's syndrome PSH: pacemaker 2010, x2, FH: father [place], Mother [place] SH: Denies alcohol, denies tobacco, denies drugs Allergies: seafood- anaphylaxis, Tylenol- anaphylaxis PMD: Dr Armstrong Review of Systems - Review of Systems Review of Systems: a 12 point ROS was obtained and pertinent positives and negatives were added to the HPI where appropriate Past Patient History - Infectious Disease Hx of Infectious Diseases: None - Tetanus Immunizations Tetanus Immunization: Unknown - Past Social History Smoking Status: Never Smoked - CARDIAC Hx Cardiac Disorders: Yes Hx Cardia Arrhythmia: Yes Hx Congestive Heart Failure: Yes Hx Hypertension: Yes Hx Internal Defibrillator: Yes (2010) Hx Pacemaker: Yes Other/Comment: waiting list for heart transplant - PULMONARY Hx Respiratory Disorders: No - NEUROLOGICAL Hx Neurological Disorder: Yes HX Cerebrovascular Accident: Yes - HEENT Hx HEENT Problems: Yes (Wears glasses.) - RENAL Hx Chronic Kidney Disease: No - ENDOCRINE/METABOLIC Hx Endocrine Disorders: No - HEMATOLOGICAL/ONCOLOGICAL Hx Blood Disorders: Yes Hx Anemia: Yes (with blood transfusion) - INTEGUMENTARY Hx Dermatological Problems: No - MUSCULOSKELETAL/RHEUMATOLOGICAL Hx Falls: No - GASTROINTESTINAL Hx Gastrointestinal Disorders: Yes Hx Gastroesophageal Reflux: Yes - GENITOURINARY/GYNECOLOGICAL Hx Genitourinary Disorders: No - PSYCHIATRIC Hx Psychophysiologic Disorder: Yes Hx Anxiety: Yes Hx Substance Use: No - SURGICAL HISTORY Hx Cardiac Catheterization: Yes Other/Comment: defibrillator 2010 - ANESTHESIA Hx Anesthesia: Yes Hx Anesthesia Reactions: No Hx Malignant Hyperthermia: No Meds Allergies/Adverse Reactions: Allergies Allergy/AdvReac Type Severity Reaction Status Date / Time acetaminophen Allergy ANGIOEDEMA Verified 05/13/18 12:31 cefepime Allergy ANAPHYLAXIS Verified 05/13/18 12:31 Physical Exam - Constitutional Appears: No Acute Distress Additional comments: pt has difficulty speaking during exam, voice sounds hoarse - Head Exam Head Exam: ATRAUMATIC, NORMOCEPHALIC - Eye Exam Eye Exam: EOMI, PERRL - ENT Exam ENT Exam: Mucous Membranes Moist Additional comments: no edema of posterior pharynx, so signs of bleeding gums, or dental trauma, no lesions or ulcers present - Respiratory Exam Respiratory Exam: Clear to Auscultation Bilateral, NORMAL BREATHING PATTERN. absent: Accessory Muscle Use, Wheezes, Respiratory Distress, Stridor - Cardiovascular Exam Cardiovascular Exam: RRR, +S1, +S2. absent: Diastolic murmur, JVD, Systolic Murmur - GI/Abdominal Exam GI & Abdominal Exam: Normal Bowel Sounds, Soft. absent: Distended, Firm - Extremities Exam Extremities exam: Positive for: normal inspection - Neurological Exam Neurological exam: Alert, Oriented x3 - Psychiatric Exam Psychiatric exam: Normal Affect, Normal Mood - Skin Skin Exam: Dry, Normal Color, Warm Results - Vital Signs Recent Vital Signs: Last Vital Signs Temp 99.5 F 08/02/18 18:11 Pulse 110 H 08/02/18 21:48 Resp 20 08/02/18 21:48 BP 134/86 08/02/18 21:48 Pulse Ox 96 08/02/18 21:48 - Labs Result Diagrams: 08/03/18 01:10 08/02/18 18:20 Labs: Laboratory Results - last 24 hr 08/02/18 08/02/18 08/02/18 18:20 18:20 18:20 WBC 7.3 D RBC 4.05 Hgb 9.9 L Hct 31.8 L MCV 78.5 L D MCH 24.4 L MCHC 31.1 RDW 15.2 H Plt Count 391 MPV 9.8 Gran % 77.3 H Lymph % (Auto) 14.7 L Wise % (Auto) 6.4 H Eos % (Auto) 1.5 Baso % (Auto) 0.1 Gran # 5.66 Lymph # (Auto) 1.1 L Wise # (Auto) 0.5 Eos # (Auto) 0.1 Baso # (Auto) 0.01 PT INR APTT D-Dimer, Quantitative pO2 111 H VBG pH 7.41 VBG pCO2 37.0 L VBG HCO3 23.5 VBG Total CO2 24.6 VBG O2 Sat (Calc) 98.9 H VBG Base Excess -0.8 L VBG Potassium 3.8 Sodium 139.0 138 Chloride 111.0 H 108 H Glucose 130 H Lactate 1.6 FiO2 21.0 Potassium 3.8 Carbon Dioxide 22 Anion Gap 12 BUN 15 Creatinine 1.0 Est GFR ( Amer) > 60 Est GFR (Non-Af Amer) 58 Random Glucose 131 H Calcium 9.1 Magnesium 2.0 Lactate Dehydrogenase 643 Total Creatine Kinase 39 Troponin I < 0.01 NT-Pro-B Natriuret Pep 957 H Venous Blood Potassium 3.8 Urine Color Urine Appearance Urine pH Ur Specific [place] Urine Protein Urine Glucose (UA) Urine Ketones Urine Blood Urine Nitrate Urine Bilirubin Urine Urobilinogen Ur Leukocyte Esterase Urine RBC Urine WBC Ur Epithelial Cells Urine Bacteria Hyaline Casts Urine Other 08/02/18 08/02/18 18:20 18:30 WBC RBC Hgb Hct MCV MCH MCHC RDW Plt Count MPV Gran % Lymph % (Auto) Wise % (Auto) Eos % (Auto) Baso % (Auto) Gran # Lymph # (Auto) Wise # (Auto) Eos # (Auto) Baso # (Auto) PT 10.5 INR 0.92 APTT 32.2 D-Dimer, Quantitative 396 H pO2 VBG pH VBG pCO2 VBG HCO3 VBG Total CO2 VBG O2 Sat (Calc) VBG Base Excess VBG Potassium Sodium Chloride Glucose Lactate FiO2 Potassium Carbon Dioxide Anion Gap BUN Creatinine Est GFR ( Amer) Est GFR (Non-Af Amer) Random Glucose Calcium Magnesium Lactate Dehydrogenase Total Creatine Kinase Troponin I NT-Pro-B Natriuret Pep Venous Blood Potassium Urine Color Dark yellow Urine Appearance Slight-cloudy Urine pH 6.5 Ur Specific [place] 1.020 Urine Protein 100 H Urine Glucose (UA) Negative Urine Ketones Trace H Urine Blood Large H Urine Nitrate Negative Urine Bilirubin Negative Urine Urobilinogen 0.2 Ur Leukocyte Esterase Small H Urine RBC 2 - 5 Urine WBC 1 - 3 Ur Epithelial Cells 4 - 5 Urine Bacteria Small Hyaline Casts 0 - 2 Urine Other Utrans Assessment & Plan - Assessment and Plan (Free Text) Assessment: Pt is a 53yo female with a PMH of DM, HTN, CHF on Lasix, COPD, pacemaker, CVA, on heart transplant list, and bechets who presents to the ED complaining of nausea and vomiting bright red blood since 4pm today. Medications given in the ED were as follow: - methylprednisolone in ED - Reglan 10mg IVP stat in ED - Morphine 2mg IVP stat x2 in ED - zofran 4mg IVP stat x2 in ED - pantoprazole 80mg IVP - NS 500ml bolus x2 in ED Plan: Neuro History of CVA - continue to monitor cognitive function - baseline is AAOx3 Cardio History HTN History CHF - Pt on Heart Transplant list - BNP 950 - previous ECHO from 07-18-17 shows LEVF 29.9% and 4 chamber dilation - mulitple attempts made to contact pt pharmacy to confirm home meds- pharmacy closed overnight, spoke with patient and family- encouraged to bring medications to bedside - pt normotensive at this time, will continue to monitor BP - Cardio consulted Dr Hill, appreciate recommendations Sinus Tachycardia - EKG reviewed, no defining ST or T wave changes, follow up EKGs reviewed overnight, sinus tachycardia improved to low 100's - CTA Chest for PE: No evidence of pulmonary embolism. Cardiomegaly Pulm Hx of COPD - xopenex PRN SOB - keep SAO2 greater than 90% GI Upper GI Bleed - H and H q6h - type and screen - 2 large bore peripheral IVs - protonix 80mg IV given in ED, protonix 40mg BID for continued therapy' - NPO - conservative IVF NS @ 50 due to poor cardiac EF History of Behcet's Syndrome - CT- Neck Soft Tissue: Impression: Diffuse thickening of the aryepiglottic fold. Dr. Shaffer states that there is nothing to do at this time. Eventually will need follow up as outpatient to take a look at the aryepiglottic fold. - follow up CRP, ESR - follow up Mg, Phos - started methylprednisolone 40mg daily (given 125mg in ED) - follow up abdominal US - GI consulted, Dr Angie- appreciate recommendations ID - follow up blood culture, urine culture - MRSA screen, follow up / Nephro - monitor I/O - monitor electrolytes - continue IVF NS @ 50ml/hr Heme - Hgb 9.9 - type and screen - DVT prophylaxis- SCDs, no pharmaceutical therapy as patient is bleeding Endocrine DM - continue to monitor fingersticks ACHS - ISS medium [place] (Patient's granddaughter): [phone] Priscila (Patient's daughter): [phone] Pt seen, examined, assessment and plan discussed with Dr Georgette Sherwood. Neel Rollins PGY1, Internal Medicine Resident - Date & Time Date: 08/02/18 Time: 23:31
[2018-08-03 01:39] LABS: GRAN # 17.04 (1.4-6.5); GRAN % 94.9 % (50.0-68.0); HEMOGLOBIN 9.6 g/dL (12.0-16.0); LYMPH # 0.6 (1.2-3.4); LYMPH % 3.5 % (22.0-35.0); MEAN CELL VOLUME 78.1 fl (80.0-105.0); MEAN CORPUSCULAR HEMOGLOBIN 24.5 pg (25.0-35.0); MEAN CORPUSCULAR HGB CONC 31.4 g/dl (31.0-37.0); MEAN PLATELET VOLUME 9.2 fl (7.0-11.0); MONO # 0.3 (0.1-0.6); MONO % 1.6 % (1.0-6.0); PLATELET COUNT 356 10^3/uL (120.0-450.0); RBC 3.92 10^6/uL (3.5-6.1); RED CELL DISTRIBUTION WIDTH 15.1 % (11.5-14.5)
[2018-08-03] MEDS: Sodium Chloride 0.9% 1,000 ML IV SCH ×2 (01:48→21:40)
[2018-08-03 03:07] LABS: BAND 1 % (0-2); HYPOCHROMIA 1+; LYMPHOCYTE 3 % (22.0-35.0); MONOCYTE 2 % (1.0-6.0); NEUTROPHIL 94 % (50.0-70.0); PLATELET ESTIMATE NORMAL (NORMAL); POIKILOCYTOSIS SLIGHT
[2018-08-03 07:06] LABS: GRAN # 16.69 (1.4-6.5); GRAN % 93.6 % (50.0-68.0); HEMOGLOBIN 9.9 g/dL (12.0-16.0); LYMPH # 0.8 (1.2-3.4); LYMPH % 4.3 % (22.0-35.0); MEAN CELL VOLUME 78.5 fl (80.0-105.0); MEAN CORPUSCULAR HEMOGLOBIN 24.1 pg (25.0-35.0); MEAN CORPUSCULAR HGB CONC 30.7 g/dl (31.0-37.0); MEAN PLATELET VOLUME 9.5 fl (7.0-11.0); MONO # 0.4 (0.1-0.6); MONO % 2.1 % (1.0-6.0); RBC 4.1 10^6/uL (3.5-6.1); RED CELL DISTRIBUTION WIDTH 15.1 % (11.5-14.5); WHITE BLOOD COUNT 17.8 10^3/ul (4.5-11.0)
[2018-08-03 07:14] LABS: ALB/GLOB RATIO 1.1 (1.1-1.8); ALT/SGPT 39 U/L (7-56); AST/SGOT 47 U/L (14-36); BLOOD UREA NITROGEN 12 mg/dL (7-21); GFR NON-AFRICAN AMERICAN 58
--- NOTE | 2018-08-03 08:28 | RAD ---
Date of service: 08/02/2018 HISTORY: sob COMPARISON: Portable chest 04/11/2018. FINDINGS: LUNGS: No active pulmonary disease. PLEURA: No significant pleural effusion identified, no pneumothorax apparent. CARDIOVASCULAR: Stable cardiomegaly. AICD/pacemaker unchanged. No definite pulmonary vascular congestion. OSSEOUS STRUCTURES: No significant abnormalities. VISUALIZED UPPER ABDOMEN: Normal. OTHER FINDINGS: None. IMPRESSION: No interval acute cardiopulmonary disease appreciated. Stable cardiomegaly. No definite pulmonary vascular congestion.
[2018-08-03] MEDS: Insulin Reg-MEDIUM-Coverage SC SCH ×4 (09:22→22:15)
[2018-08-03] MEDS: MethylPREDNISolone 40 mg Vial IVP SCH (09:44)
--- NOTE | 2018-08-03 10:21 | CARD ---
APPROVED REPORT Date of service: 08/03/2018 EKG Measurement Heart [id number] <Conclusion> Sinus tachycardia Minimal voltage criteria for LVH STTW changes c/w ischemia, new Prolonged QTc
--- NOTE | 2018-08-03 10:38 | CP.CCUPN ---
<Jevon Hwang - Last Filed: 08/03/18 11:34> CCU Subjective - Physician Review Subjective (Free Text): Jevon Hwang, PGY-1, CCU progress note for Dr. Sutherland. Patient seen and examined at bedside. Patient had no overnight events and was stable. Patient reports continued throat pain that started yesterday morning and oral ulcers. Patient denies dizziness, headache, fever, chest pain, shortness of breath, wheezing, cough, nausea, vomiting, constipation, diarrhea, dysuria, hematuria, numbness or tingling. 12-point ROS is negative except for what is listed above. Critical Care Time Spent (in minutes): 60 CCU Objective - Vital Signs / Intake & Output Vital Signs (Last 4 hours): Vital Signs Pulse Resp BP Pulse Ox 08/03/18 10:20 77 13 99 08/03/18 10:10 83 13 99 08/03/18 10:00 81 15 136/70 98 08/03/18 09:50 94 H 15 100 08/03/18 09:40 88 18 100 08/03/18 09:31 64 22 08/03/18 09:00 84 41 H 135/101 H 99 08/03/18 08:50 84 22 99 08/03/18 08:40 87 99 08/03/18 08:30 87 27 H 99 08/03/18 08:20 74 43 H 96 08/03/18 08:10 72 18 97 08/03/18 08:00 73 48 H 144/81 97 08/03/18 07:50 85 15 99 08/03/18 07:40 73 30 H 99 08/03/18 07:30 80 23 99 08/03/18 07:20 87 35 H 98 08/03/18 07:10 77 27 H 97 08/03/18 07:05 89 140/82 99 08/03/18 07:00 81 20 99 08/03/18 06:50 86 19 98 08/03/18 06:40 99 H 18 99 08/03/18 06:30 91 H 20 98 Intake and Output (Last 8hrs): Intake & Output 08/02/18 08/03/18 08/03/18 22:59 06:59 14:59 Intake Total 200 Output Total 360 Balance -160 Weight 217 lb Intake: IV 200 Left Forearm 0 Right Antecubital 200 Output: Urine 360 Urine, Voided 360 Stool 0 Other: Voiding Method Bedpan # Voids Urine, Voided 2 - Physical Exam Head: Positive for: Atraumatic, Normocephalic Pupils: Positive for: PERRL Extroacular Muscles: Positive for: EOMI Conjunctiva: Positive for: Normal Mouth: Positive for: Moist Mucous Membranes, Other (blister noted sublingual) Pharnyx: Positive for: Normal. Negative for: ERYTHEMA, Uvular Deviation Neck: Positive for: Normal Range of Motion Respiratory/Chest: Positive for: Clear to Auscultation, Good Air Exchange. Negative for: Respiratory Distress, Accessory Muscle Use Cardiovascular: Positive for: Regular Rate and Rhythm, Normal S1, S2. Negative for: Murmurs Abdomen: Negative for: Tenderness, Distention, Peritoneal Signs Back: Positive for: Normal Inspection Upper Extremity: Positive for: Normal Inspection, Normal ROM. Negative for: Cya nosis, Edema Lower Extremity: Positive for: Normal Inspection. Negative for: Edema Neurological: Positive for: GCS=15, CN II-XII Intact, Speech Normal Skin: Positive for: Warm, Dry, Normal Color. Negative for: Rashes Psychiatric: Positive for: Alert, Oriented x 3, Normal Insight, Normal Concentration - Medications Active Medications: Active Medications Generic Name Dose Route Start Last Admin Trade Name Freq PRN Reason Stop Dose Admin Benzocaine/Menthol 1 nicol 08/03/18 08:55 Cepacol Sore Throat MT Q2H PRN Sore Throat Sodium Chloride 1,000 mls @ 50 mls/hr 08/03/18 00:30 08/03/18 01:48 Sodium Chloride 0.9% IV 50 mls/hr .Q20H NESTOR Administration Insulin Human Regular 0 units 08/03/18 07:30 08/03/18 09:22 Humulin R Med SC Not Given ACHS NESTOR Protocol Methylprednisolone 40 mg 08/03/18 10:00 08/03/18 09:44 Solu-Medrol IVP 40 mg DAILY NESTOR Administration Pantoprazole Sodium 40 mg 08/03/18 10:00 08/03/18 09:42 Protonix Inj IVP 40 mg BID NSETOR Administration - Patient Studies Lab Studies: Lab Studies 08/03/18 08/03/18 08/03/18 Range/Units 08:24 06:50 06:50 WBC 17.8 H (4.5-11.0) 10^3/ul RBC 4.10 (3.5-6.1) 10^6/uL Hgb 9.9 L (12.0-16.0) g/dL Hct 32.2 L (36.0-48.0) % MCV 78.5 L (80.0-105.0) fl MCH 24.1 L (25.0-35.0) pg MCHC 30.7 L (31.0-37.0) g/dl RDW 15.1 H (11.5-14.5) % Plt Count 376 (120.0-450.0) 10^3/uL MPV 9.5 (7.0-11.0) fl Gran % 93.6 H (50.0-68.0) % Lymph % (Auto) 4.3 L (22.0-35.0) % [place] % (Auto) 2.1 (1.0-6.0) % Eos % (Auto) 0.0 L (1.5-5.0) % Baso % (Auto) 0.0 (0.0-3.0) % Gran # 16.69 H (1.4-6.5) Lymph # (Auto) 0.8 L (1.2-3.4) [place] # (Auto) 0.4 (0.1-0.6) Eos # (Auto) 0.0 (0.0-0.7) Baso # (Auto) 0.00 (0.0-2.0) K/mm3 Neutrophils % (Manual) (50.0-70.0) % Band Neutrophils % (0-2) % Lymphocytes % (Manual) (22.0-35.0) % Monocytes % (Manual) (1.0-6.0) % Platelet Evaluation (NORMAL) Hypochromasia Poikilocytosis (manual PT (9.4-12.5) SECONDS INR APTT (25.1-36.5) Seconds D-Dimer, Quantitative (0-243) ng/mlDDU pO2 (30-55) mm/Hg VBG pH (7.32-7.43) VBG pCO2 (40-60) VBG HCO3 (21-28) mmol/l VBG Total CO2 (22-28) mmol.L VBG O2 Sat (Calc) (40-65) % VBG Base Excess (0.0-2.0) mmol/L VBG Potassium (3.6-5.2) mmol/L Sodium (132-148) mmol/L Chloride (98-107) mmol/L Glucose (65-105) mg/dl Lactate (0.7-2.1) mmol/L FiO2 % Potassium (3.6-5.0) mmol/L Carbon Dioxide (21-33) mmol/L Anion Gap (10-20) BUN (7-21) mg/dL Creatinine (0.7-1.2) mg/dl Est GFR ( Amer) Est GFR (Non-Af Amer) POC Glucose (mg/dL) 127 H (65-110) mg/dL Random Glucose (70-110) mg/dL Calcium (8.4-10.5) mg/dL Magnesium (1.7-2.2) mg/dL Total Bilirubin (0.2-1.3) mg/dL AST (14-36) U/L ALT (7-56) U/L Alkaline Phosphatase (38-126) U/L Lactate Dehydrogenase (333-699) U/L Total Creatine Kinase (35-230) U/L Troponin I ng/mL NT-Pro-B Natriuret Pep (0-450) pg/mL Total Protein (5.8-8.3) g/dL Albumin (3.0-4.8) g/dL Globulin gm/dL Albumin/Globulin Ratio (1.1-1.8) Venous Blood Potassium (3.6-5.2) mmol/L Urine Color (YELLOW) Urine Appearance (CLEAR) Urine pH (4.7-8.0) Ur Specific [place] (1.005-1.035) Urine Protein (<30 mg/dL) mg/dL Urine Glucose (UA) (NEGATIVE) mg/dL Urine Ketones (NEGATIVE) mg/dL Urine Blood (NEGATIVE) Urine Nitrate (NEGATIVE) Urine Bilirubin (NEGATIVE) Urine Urobilinogen (<1 E.U./dL) E.U./dL Ur Leukocyte Esterase (NEGATIVE) Halima/uL Urine RBC (0-2) /hpf Urine WBC (0-6) /hpf Ur Epithelial Cells (0-5) /hpf Urine Bacteria (NEG) Hyaline Casts /hpf Urine Other Blood Type O POSITIVE Antibody Screen Positive BBK History Checked Patient has bt 08/03/18 08/03/18 08/02/18 Range/Units 06:50 01:10 18:30 WBC 18.0 H D (4.5-11.0) 10^3/ul RBC 3.92 (3.5-6.1) 10^6/uL Hgb 9.6 L (12.0-16.0) g/dL Hct 30.6 L (36.0-48.0) % MCV 78.1 L (80.0-105.0) fl MCH 24.5 L (25.0-35.0) pg MCHC 31.4 (31.0-37.0) g/dl RDW 15.1 H (11.5-14.5) % Plt Count 356 (120.0-450.0) 10^3/uL MPV 9.2 (7.0-11.0) fl Gran % 94.9 H (50.0-68.0) % Lymph % (Auto) 3.5 L (22.0-35.0) % [place] % (Auto) 1.6 (1.0-6.0) % Eos % (Auto) 0.0 L (1.5-5.0) % Baso % (Auto) 0.0 (0.0-3.0) % Gran # 17.04 H (1.4-6.5) Lymph # (Auto) 0.6 L (1.2-3.4) [place] # (Auto) 0.3 (0.1-0.6) Eos # (Auto) 0.0 (0.0-0.7) Baso # (Auto) 0.00 (0.0-2.0) K/mm3 Neutrophils % (Manual) 94 H (50.0-70.0) % Band Neutrophils % 1 (0-2) % Lymphocytes % (Manual) 3 L (22.0-35.0) % Monocytes % (Manual) 2 (1.0-6.0) % Platelet Evaluation Normal (NORMAL) Hypochromasia 1+ Poikilocytosis (manual Slight PT (9.4-12.5) SECONDS INR APTT (25.1-36.5) Seconds D-Dimer, Quantitative (0-243) ng/mlDDU pO2 (30-55) mm/Hg VBG pH (7.32-7.43) VBG pCO2 (40-60) VBG HCO3 (21-28) mmol/l VBG Total CO2 (22-28) mmol.L VBG O2 Sat (Calc) (40-65) % VBG Base Excess (0.0-2.0) mmol/L VBG Potassium (3.6-5.2) mmol/L Sodium 141 (132-148) mmol/L Chloride 108 H (98-107) mmol/L Glucose (65-105) mg/dl Lactate (0.7-2.1) mmol/L FiO2 % Potassium 4.2 (3.6-5.0) mmol/L Carbon Dioxide 26 (21-33) mmol/L Anion Gap 12 (10-20) BUN 12 (7-21) mg/dL Creatinine 1.0 (0.7-1.2) mg/dl Est GFR ( Amer) > 60 Est GFR (Non-Af Amer) 58 POC Glucose (mg/dL) (65-110) mg/dL Random Glucose 135 H (70-110) mg/dL Calcium 9.0 (8.4-10.5) mg/dL Magnesium (1.7-2.2) mg/dL Total Bilirubin 0.4 (0.2-1.3) mg/dL AST 47 H D (14-36) U/L ALT 39 (7-56) U/L Alkaline Phosphatase 114 (38-126) U/L Lactate Dehydrogenase (333-699) U/L Total Creatine Kinase (35-230) U/L Troponin I ng/mL NT-Pro-B Natriuret Pep (0-450) pg/mL Total Protein 7.7 (5.8-8.3) g/dL Albumin 4.0 (3.0-4.8) g/dL Globulin 3.7 gm/dL Albumin/Globulin Ratio 1.1 (1.1-1.8) Venous Blood Potassium (3.6-5.2) mmol/L Urine Color Dark yellow (YELLOW) Urine Appearance Slight-cloudy (CLEAR) Urine pH 6.5 (4.7-8.0) Ur Specific [place] 1.020 (1.005-1.035) Urine Protein 100 H (<30 mg/dL) mg/dL Urine Glucose (UA) Negative (NEGATIVE) mg/dL Urine Ketones Trace H (NEGATIVE) mg/dL Urine Blood Large H (NEGATIVE) Urine Nitrate Negative (NEGATIVE) Urine Bilirubin Negative (NEGATIVE) Urine Urobilinogen 0.2 (<1 E.U./dL) E.U./dL Ur Leukocyte Esterase Small H (NEGATIVE) Halima/uL Urine RBC 2 - 5 (0-2) /hpf Urine WBC 1 - 3 (0-6) /hpf Ur Epithelial Cells 4 - 5 (0-5) /hpf Urine Bacteria Small (NEG) Hyaline Casts 0 - 2 /hpf Urine Other Utrans Blood Type Antibody Screen BBK History Checked 08/02/18 08/02/18 08/02/18 Range/Units 18:20 18:20 18:20 WBC (4.5-11.0) 10^3/ul RBC (3.5-6.1) 10^6/uL Hgb (12.0-16.0) g/dL Hct (36.0-48.0) % MCV (80.0-105.0) fl MCH (25.0-35.0) pg MCHC (31.0-37.0) g/dl RDW (11.5-14.5) % Plt Count (120.0-450.0) 10^3/uL MPV (7.0-11.0) fl Gran % (50.0-68.0) % Lymph % (Auto) (22.0-35.0) % [place] % (Auto) (1.0-6.0) % Eos % (Auto) (1.5-5.0) % Baso % (Auto) (0.0-3.0) % Gran # (1.4-6.5) Lymph # (Auto) (1.2-3.4) [place] # (Auto) (0.1-0.6) Eos # (Auto) (0.0-0.7) Baso # (Auto) (0.0-2.0) K/mm3 Neutrophils % (Manual) (50.0-70.0) % Band Neutrophils % (0-2) % Lymphocytes % (Manual) (22.0-35.0) % Monocytes % (Manual) (1.0-6.0) % Platelet Evaluation (NORMAL) Hypochromasia Poikilocytosis (manual PT 10.5 (9.4-12.5) SECONDS INR 0.92 APTT 32.2 (25.1-36.5) Seconds D-Dimer, Quantitative 396 H (0-243) ng/mlDDU pO2 111 H (30-55) mm/Hg VBG pH 7.41 (7.32-7.43) VBG pCO2 37.0 L (40-60) VBG HCO3 23.5 (21-28) mmol/l VBG Total CO2 24.6 (22-28) mmol.L VBG O2 Sat (Calc) 98.9 H (40-65) % VBG Base Excess -0.8 L (0.0-2.0) mmol/L VBG Potassium 3.8 (3.6-5.2) mmol/L Sodium 138 139.0 (132-148) mmol/L Chloride 108 H 111.0 H (98-107) mmol/L Glucose 130 H (65-105) mg/dl Lactate 1.6 (0.7-2.1) mmol/L FiO2 21.0 % Potassium 3.8 (3.6-5.0) mmol/L Carbon Dioxide 22 (21-33) mmol/L Anion Gap 12 (10-20) BUN 15 (7-21) mg/dL Creatinine 1.0 (0.7-1.2) mg/dl Est GFR ( Amer) > 60 Est GFR (Non-Af Amer) 58 POC Glucose (mg/dL) (65-110) mg/dL Random Glucose 131 H (70-110) mg/dL Calcium 9.1 (8.4-10.5) mg/dL Magnesium 2.0 (1.7-2.2) mg/dL Total Bilirubin (0.2-1.3) mg/dL AST (14-36) U/L ALT (7-56) U/L Alkaline Phosphatase (38-126) U/L Lactate Dehydrogenase 643 (333-699) U/L Total Creatine Kinase 39 (35-230) U/L Troponin I < 0.01 ng/mL NT-Pro-B Natriuret Pep 957 H (0-450) pg/mL Total Protein (5.8-8.3) g/dL Albumin (3.0-4.8) g/dL Globulin gm/dL Albumin/Globulin Ratio (1.1-1.8) Venous Blood Potassium 3.8 (3.6-5.2) mmol/L Urine Color (YELLOW) Urine Appearance (CLEAR) Urine pH (4.7-8.0) Ur Specific [place] (1.005-1.035) Urine Protein (<30 mg/dL) mg/dL Urine Glucose (UA) (NEGATIVE) mg/dL Urine Ketones (NEGATIVE) mg/dL Urine Blood (NEGATIVE) Urine Nitrate (NEGATIVE) Urine Bilirubin (NEGATIVE) Urine Urobilinogen (<1 E.U./dL) E.U./dL Ur Leukocyte Esterase (NEGATIVE) Halima/uL Urine RBC (0-2) /hpf Urine WBC (0-6) /hpf Ur Epithelial Cells (0-5) /hpf Urine Bacteria (NEG) Hyaline Casts /hpf Urine Other Blood Type Antibody Screen BBK History Checked 08/02/18 Range/Units 18:20 WBC 7.3 D (4.5-11.0) 10^3/ul RBC 4.05 (3.5-6.1) 10^6/uL Hgb 9.9 L (12.0-16.0) g/dL Hct 31.8 L (36.0-48.0) % MCV 78.5 L D (80.0-105.0) fl MCH 24.4 L (25.0-35.0) pg MCHC 31.1 (31.0-37.0) g/dl RDW 15.2 H (11.5-14.5) % Plt Count 391 (120.0-450.0) 10^3/uL MPV 9.8 (7.0-11.0) fl Gran % 77.3 H (50.0-68.0) % Lymph % (Auto) 14.7 L (22.0-35.0) % [place] % (Auto) 6.4 H (1.0-6.0) % Eos % (Auto) 1.5 (1.5-5.0) % Baso % (Auto) 0.1 (0.0-3.0) % Gran # 5.66 (1.4-6.5) Lymph # (Auto) 1.1 L (1.2-3.4) [place] # (Auto) 0.5 (0.1-0.6) Eos # (Auto) 0.1 (0.0-0.7) Baso # (Auto) 0.01 (0.0-2.0) K/mm3 Neutrophils % (Manual) (50.0-70.0) % Band Neutrophils % (0-2) % Lymphocytes % (Manual) (22.0-35.0) % Monocytes % (Manual) (1.0-6.0) % Platelet Evaluation (NORMAL) Hypochromasia Poikilocytosis (manual PT (9.4-12.5) SECONDS INR APTT (25.1-36.5) Seconds D-Dimer, Quantitative (0-243) ng/mlDDU pO2 (30-55) mm/Hg VBG pH (7.32-7.43) VBG pCO2 (40-60) VBG HCO3 (21-28) mmol/l VBG Total CO2 (22-28) mmol.L VBG O2 Sat (Calc) (40-65) % VBG Base Excess (0.0-2.0) mmol/L VBG Potassium (3.6-5.2) mmol/L Sodium (132-148) mmol/L Chloride (98-107) mmol/L Glucose (65-105) mg/dl Lactate (0.7-2.1) mmol/L FiO2 % Potassium (3.6-5.0) mmol/L Carbon Dioxide (21-33) mmol/L Anion Gap (10-20) BUN (7-21) mg/dL Creatinine (0.7-1.2) mg/dl Est GFR ( Amer) Est GFR (Non-Af Amer) POC Glucose (mg/dL) (65-110) mg/dL Random Glucose (70-110) mg/dL Calcium (8.4-10.5) mg/dL Magnesium (1.7-2.2) mg/dL Total Bilirubin (0.2-1.3) mg/dL AST (14-36) U/L ALT (7-56) U/L Alkaline Phosphatase (38-126) U/L Lactate Dehydrogenase (333-699) U/L Total Creatine Kinase (35-230) U/L Troponin I ng/mL NT-Pro-B Natriuret Pep (0-450) pg/mL Total Protein (5.8-8.3) g/dL Albumin (3.0-4.8) g/dL Globulin gm/dL Albumin/Globulin Ratio (1.1-1.8) Venous Blood Potassium (3.6-5.2) mmol/L Urine Color (YELLOW) Urine Appearance (CLEAR) Urine pH (4.7-8.0) Ur Specific [place] (1.005-1.035) Urine Protein (<30 mg/dL) mg/dL Urine Glucose (UA) (NEGATIVE) mg/dL Urine Ketones (NEGATIVE) mg/dL Urine Blood (NEGATIVE) Urine Nitrate (NEGATIVE) Urine Bilirubin (NEGATIVE) Urine Urobilinogen (<1 E.U./dL) E.U./dL Ur Leukocyte Esterase (NEGATIVE) Halima/uL Urine RBC (0-2) /hpf Urine WBC (0-6) /hpf Ur Epithelial Cells (0-5) /hpf Urine Bacteria (NEG) Hyaline Casts /hpf Urine Other Blood Type Antibody Screen BBK History Checked Laboratory Results - last 24 hr 08/02/18 08/02/18 08/02/18 18:20 18:20 18:20 WBC 7.3 D RBC 4.05 Hgb 9.9 L Hct 31.8 L MCV 78.5 L D MCH 24.4 L MCHC 31.1 RDW 15.2 H Plt Count 391 MPV 9.8 Gran % 77.3 H Lymph % (Auto) 14.7 L [place] % (Auto) 6.4 H Eos % (Auto) 1.5 Baso % (Auto) 0.1 Gran # 5.66 Lymph # (Auto) 1.1 L [place] # (Auto) 0.5 Eos # (Auto) 0.1 Baso # (Auto) 0.01 Neutrophils % (Manual) Band Neutrophils % Lymphocytes % (Manual) Monocytes % (Manual) Platelet Evaluation Hypochromasia Poikilocytosis (manual PT INR APTT D-Dimer, Quantitative pO2 111 H VBG pH 7.41 VBG pCO2 37.0 L VBG HCO3 23.5 VBG Total CO2 24.6 VBG O2 Sat (Calc) 98.9 H VBG Base Excess -0.8 L VBG Potassium 3.8 Sodium 139.0 138 Chloride 111.0 H 108 H Glucose 130 H Lactate 1.6 FiO2 21.0 Potassium 3.8 Carbon Dioxide 22 Anion Gap 12 BUN 15 Creatinine 1.0 Est GFR ( Amer) > 60 Est GFR (Non-Af Amer) 58 POC Glucose (mg/dL) Random Glucose 131 H Calcium 9.1 Magnesium 2.0 Total Bilirubin AST ALT Alkaline Phosphatase Lactate Dehydrogenase 643 Total Creatine Kinase 39 Troponin I < 0.01 NT-Pro-B Natriuret Pep 957 H Total Protein Albumin Globulin Albumin/Globulin Ratio Venous Blood Potassium 3.8 Urine Color Urine Appearance Urine pH Ur Specific [place] Urine Protein Urine Glucose (UA) Urine Ketones Urine Blood Urine Nitrate Urine Bilirubin Urine Urobilinogen Ur Leukocyte Esterase Urine RBC Urine WBC Ur Epithelial Cells Urine Bacteria Hyaline Casts Urine Other Blood Type Antibody Screen BBK History Checked 08/02/18 08/02/18 08/03/18 18:20 18:30 01:10 WBC 18.0 H D RBC 3.92 Hgb 9.6 L Hct 30.6 L MCV 78.1 L MCH 24.5 L MCHC 31.4 RDW 15.1 H Plt Count 356 MPV 9.2 Gran % 94.9 H Lymph % (Auto) 3.5 L [place] % (Auto) 1.6 Eos % (Auto) 0.0 L Baso % (Auto) 0.0 Gran # 17.04 H Lymph # (Auto) 0.6 L [place] # (Auto) 0.3 Eos # (Auto) 0.0 Baso # (Auto) 0.00 Neutrophils % (Manual) 94 H Band Neutrophils % 1 Lymphocytes % (Manual) 3 L Monocytes % (Manual) 2 Platelet Evaluation Normal Hypochromasia 1+ Poikilocytosis (manual Slight PT 10.5 INR 0.92 APTT 32.2 D-Dimer, Quantitative 396 H pO2 VBG pH VBG pCO2 VBG HCO3 VBG Total CO2 VBG O2 Sat (Calc) VBG Base Excess VBG Potassium Sodium Chloride Glucose Lactate FiO2 Potassium Carbon Dioxide Anion Gap BUN Creatinine Est GFR ( Amer) Est GFR (Non-Af Amer) POC Glucose (mg/dL) Random Glucose Calcium Magnesium Total Bilirubin AST ALT Alkaline Phosphatase Lactate Dehydrogenase Total Creatine Kinase Troponin I NT-Pro-B Natriuret Pep Total Protein Albumin Globulin Albumin/Globulin Ratio Venous Blood Potassium Urine Color Dark yellow Urine Appearance Slight-cloudy Urine pH 6.5 Ur Specific [place] 1.020 Urine Protein 100 H Urine Glucose (UA) Negative Urine Ketones Trace H Urine Blood Large H Urine Nitrate Negative Urine Bilirubin Negative Urine Urobilinogen 0.2 Ur Leukocyte Esterase Small H Urine RBC 2 - 5 Urine WBC 1 - 3 Ur Epithelial Cells 4 - 5 Urine Bacteria Small Hyaline Casts 0 - 2 Urine Other Utrans Blood Type Antibody Screen BBK History Checked 08/03/18 08/03/18 08/03/18 06:50 06:50 06:50 WBC 17.8 H RBC 4.10 Hgb 9.9 L Hct 32.2 L MCV 78.5 L MCH 24.1 L MCHC 30.7 L RDW 15.1 H Plt Count 376 MPV 9.5 Gran % 93.6 H Lymph % (Auto) 4.3 L [place] % (Auto) 2.1 Eos % (Auto) 0.0 L Baso % (Auto) 0.0 Gran # 16.69 H Lymph # (Auto) 0.8 L [place] # (Auto) 0.4 Eos # (Auto) 0.0 Baso # (Auto) 0.00 Neutrophils % (Manual) Band Neutrophils % Lymphocytes % (Manual) Monocytes % (Manual) Platelet Evaluation Hypochromasia Poikilocytosis (manual PT INR APTT D-Dimer, Quantitative pO2 VBG pH VBG pCO2 VBG HCO3 VBG Total CO2 VBG O2 Sat (Calc) VBG Base Excess VBG Potassium Sodium 141 Chloride 108 H Glucose Lactate FiO2 Potassium 4.2 Carbon Dioxide 26 Anion Gap 12 BUN 12 Creatinine 1.0 Est GFR ( Amer) > 60 Est GFR (Non-Af Amer) 58 POC Glucose (mg/dL) Random Glucose 135 H Calcium 9.0 Magnesium Total Bilirubin 0.4 AST 47 H D ALT 39 Alkaline Phosphatase 114 Lactate Dehydrogenase Total Creatine Kinase Troponin I NT-Pro-B Natriuret Pep Total Protein 7.7 Albumin 4.0 Globulin 3.7 Albumin/Globulin Ratio 1.1 Venous Blood Potassium Urine Color Urine Appearance Urine pH Ur Specific [place] Urine Protein Urine Glucose (UA) Urine Ketones Urine Blood Urine Nitrate Urine Bilirubin Urine Urobilinogen Ur Leukocyte Esterase Urine RBC Urine WBC Ur Epithelial Cells Urine Bacteria Hyaline Casts Urine Other Blood Type O POSITIVE Antibody Screen Positive BBK History Checked Patient has bt 08/03/18 08:24 WBC RBC Hgb Hct MCV MCH MCHC RDW Plt Count MPV Gran % Lymph % (Auto) [place] % (Auto) Eos % (Auto) Baso % (Auto) Gran # Lymph # (Auto) [place] # (Auto) Eos # (Auto) Baso # (Auto) Neutrophils % (Manual) Band Neutrophils % Lymphocytes % (Manual) Monocytes % (Manual) Platelet Evaluation Hypochromasia Poikilocytosis (manual PT INR APTT D-Dimer, Quantitative pO2 VBG pH VBG pCO2 VBG HCO3 VBG Total CO2 VBG O2 Sat (Calc) VBG Base Excess VBG Potassium Sodium Chloride Glucose Lactate FiO2 Potassium Carbon Dioxide Anion Gap BUN Creatinine Est GFR ( Amer) Est GFR (Non-Af Amer) POC Glucose (mg/dL) 127 H Random Glucose Calcium Magnesium Total Bilirubin AST ALT Alkaline Phosphatase Lactate Dehydrogenase Total Creatine Kinase Troponin I NT-Pro-B Natriuret Pep Total Protein Albumin Globulin Albumin/Globulin Ratio Venous Blood Potassium Urine Color Urine Appearance Urine pH Ur Specific [place] Urine Protein Urine Glucose (UA) Urine Ketones Urine Blood Urine Nitrate Urine Bilirubin Urine Urobilinogen Ur Leukocyte Esterase Urine RBC Urine WBC Ur Epithelial Cells Urine Bacteria Hyaline Casts Urine Other Blood Type Antibody Screen BBK History Checked EKG/Cardiology Studies: Cardiology / EKG Studies 08/02/18 18:20 ELECTROCARDIOGRAM Stat Comment: Reason For Exam: vomiting/sob Fingerstick Blood Sugar Results: 127 Review of Systems - Constitutional Constitutional: absent: Fever, Chills - EENT Eyes: absent: Change in Vision Ears: absent: Decreased Hearing Nose/Mouth/Throat: Sore Throat. absent: Epistaxis - Cardiovascular Cardiovascular: absent: Chest Pain, Chest Pain at Rest, Chest Pain with Activity, Dyspnea on Exertion, Palpitations - Respiratory Respiratory: absent: Cough, Dyspnea, Hemoptysis, Wheezing - Gastrointestinal Gastrointestinal: absent: Abdominal Pain, Constipation, Diarrhea, Nausea, Vomiting - Genitourinary Genitourinary: absent: Change in Urinary Stream, Dysuria, Hematuria - Musculoskeletal Musculoskeletal: absent: Abnormal Gait, Arthralgias - Integumentary Integumentary: Other (mouth ulcer). absent: Rash, Skin Ulcer - Neurological Neurological: absent: Numbness, Tremor, Weakness Critical Care Progress Note - Extremities/Vascular Does the Patient have a Central Venous Catheter?: No Does the Patient need a Central Venous Catheter?: No Does the Patient have a Roper Catheter?: No Does the Patient need a Roper Catheter?: No - Prophylaxis GI Prophylaxis GI: PPI - Prophylaxis DVT Prophylaxis DVT: SCDs Assessment/Plan - Assessment and Plan (Free Text) Assessment: 53 year old female with past medical history of Behcet's disease, diabetes, hypertension, CHF with EF of 29.9% from 07/2017, COPD, and ICD placement presented with multiple episodes of hematemesis on 08/02. Plan: Neuro: -AAOx3, no FND, moving extremities past midline. -Monitor neuro status. -Reorient patient as necessary. Cardio: -RRR, normotensive, no signs of HD compromise -BNP: 957. Patient has no signs of fluid overload. -Abdominal ultrasound ordered for IVC evaluation. -IV NS started at 50 cc/hr -Maintain MAP>65. -Monitor for S/S, HD compromise. Pulm: -No signs of respiratory distress. CTA B/L -VBG: pH: 7.41, PO2: 111, PCO2: 37, Lactate: 1.6 -D-dimer: 396 -CTA: No pulmonary embolism appreciated -Patient is stating well on room air. -Maintain O2 saturation>95%. GI: -Patient had reported multiple episodes of hematemesis. -Patient has significant history of Behcet's -CT neck: diffuse thickening of aryepiglottic fold -NPO -Patient given stat dose of reglan 10 mg in the emergency department for nausea. -Protonix 40 BID. -Patient has stable H/H at 9.9/32.2. Patient has stable vitals with HR of 88 and BP of 137/84. -As per GI, patient for possible endoscopy today. -GI, Dr. Adams consulted for recommendations. /Nephro: -BUN/Cr stable -Good urine output -Continue monitoring. -Replete electrolytes as needed. -Maintain euvolemia. Endocrinology: -Patient with history of diabetes mellitus -Random glucose: 135 -Random finger stick glucose as needed. -Patient started on medium sliding scale insulin. -Maintain euglycemia. Heme/Onc: -H/H stable at 9.9 -Type and screen performed. -No signs of HD compromise. -Continue monitoring H/H ID: -Patient has significant history of Behcet's -Afebrile, lieukocytosis at 17.8 likely due to steroid use -Follow up ESR, CRP, BCx, UCx, MRSA -Lactate: 1.6 -Continue methylprednisone 40 mg daily. Patient was given loading dose of methylprednisone 125 mg in the emergency department. -Monitor for signs and symptoms of infection. DVT prophylaxis: SCD GI prophylaxis: protonix 40 mg BID Patient case discussed with Dr. Sutherland. - Date & Time Date: 08/03/18 Time: 10:51 <Khoi Sutherland - Last Filed: 08/03/18 12:12> CCU Objective - Vital Signs / Intake & Output Vital Signs (Last 4 hours): Vital Signs Pulse Resp BP Pulse Ox 08/03/18 10:20 77 13 99 08/03/18 10:10 83 13 99 08/03/18 10:00 81 15 136/70 98 08/03/18 09:50 94 H 15 100 08/03/18 09:40 88 18 100 08/03/18 09:31 64 22 08/03/18 09:00 84 41 H 135/101 H 99 08/03/18 08:50 84 22 99 08/03/18 08:40 87 99 08/03/18 08:30 87 27 H 99 08/03/18 08:20 74 43 H 96 08/03/18 08:10 72 18 97 Intake and Output (Last 8hrs): Intake & Output 08/02/18 08/03/18 08/03/18 22:59 06:59 14:59 Intake Total 200 Output Total 360 Balance -160 Weight 217 lb Intake: IV 200 Left Forearm 0 Right Antecubital 200 Output: Urine 360 Urine, Voided 360 Stool 0 Other: Voiding Method Bedpan # Voids Urine, Voided 2 - Medications Active Medications: Active Medications Generic Name Dose Route Start Last Admin Trade Name Freq PRN Reason Stop Dose Admin Benzocaine/Menthol 1 nicol 08/03/18 08:55 Cepacol Sore Throat MT Q2H PRN Sore Throat Sodium Chloride 1,000 mls @ 50 mls/hr 08/03/18 00:30 08/03/18 01:48 Sodium Chloride 0.9% IV 50 mls/hr .Q20H NESTOR Administration Insulin Human Regular 0 units 08/03/18 07:30 08/03/18 09:22 Humulin R Med SC Not Given [facility] Protocol Methylprednisolone 40 mg 08/03/18 10:00 08/03/18 09:44 Solu-Medrol IVP 40 mg DAILY NESTOR Administration Pantoprazole Sodium 40 mg 08/03/18 10:00 08/03/18 09:42 Protonix Inj IVP 40 mg BID NESTOR Administration - Patient Studies Lab Studies: Lab Studies 08/03/18 08/03/18 08/03/18 Range/Units 11:09 08:24 06:50 WBC (4.5-11.0) 10^3/ul RBC (3.5-6.1) 10^6/uL Hgb (12.0-16.0) g/dL Hct (36.0-48.0) % MCV (80.0-105.0) fl MCH (25.0-35.0) pg MCHC (31.0-37.0) g/dl RDW (11.5-14.5) % Plt Count (120.0-450.0) 10^3/uL MPV (7.0-11.0) fl Gran % (50.0-68.0) % Lymph % (Auto) (22.0-35.0) % [place] % (Auto) (1.0-6.0) % Eos % (Auto) (1.5-5.0) % Baso % (Auto) (0.0-3.0) % Gran # (1.4-6.5) Lymph # (Auto) (1.2-3.4) [place] # (Auto) (0.1-0.6) Eos # (Auto) (0.0-0.7) Baso # (Auto) (0.0-2.0) K/mm3 Neutrophils % (Manual) (50.0-70.0) % Band Neutrophils % (0-2) % Lymphocytes % (Manual) (22.0-35.0) % Monocytes % (Manual) (1.0-6.0) % Platelet Evaluation (NORMAL) Hypochromasia Poikilocytosis (manual PT (9.4-12.5) SECONDS INR APTT (25.1-36.5) Seconds D-Dimer, Quantitative (0-243) ng/mlDDU pO2 (30-55) mm/Hg VBG pH (7.32-7.43) VBG pCO2 (40-60) VBG HCO3 (21-28) mmol/l VBG Total CO2 (22-28) mmol.L VBG O2 Sat (Calc) (40-65) % VBG Base Excess (0.0-2.0) mmol/L VBG Potassium (3.6-5.2) mmol/L Sodium (132-148) mmol/L Chloride (98-107) mmol/L Glucose (65-105) mg/dl Lactate (0.7-2.1) mmol/L FiO2 % Potassium (3.6-5.0) mmol/L Carbon Dioxide (21-33) mmol/L Anion Gap (10-20) BUN (7-21) mg/dL Creatinine (0.7-1.2) mg/dl Est GFR ( Amer) Est GFR (Non-Af Amer) POC Glucose (mg/dL) 103 127 H (65-110) mg/dL Random Glucose (70-110) mg/dL Calcium (8.4-10.5) mg/dL Magnesium (1.7-2.2) mg/dL Total Bilirubin (0.2-1.3) mg/dL AST (14-36) U/L ALT (7-56) U/L Alkaline Phosphatase (38-126) U/L Lactate Dehydrogenase (333-699) U/L Total Creatine Kinase (35-230) U/L Troponin I ng/mL C-React Prot High Sens (1.00-3.00) mg/L NT-Pro-B Natriuret Pep (0-450) pg/mL Total Protein (5.8-8.3) g/dL Albumin (3.0-4.8) g/dL Globulin gm/dL Albumin/Globulin Ratio (1.1-1.8) Venous Blood Potassium (3.6-5.2) mmol/L Urine Color (YELLOW) Urine Appearance (CLEAR) Urine pH (4.7-8.0) Ur Specific [place] (1.005-1.035) Urine Protein (<30 mg/dL) mg/dL Urine Glucose (UA) (NEGATIVE) mg/dL Urine Ketones (NEGATIVE) mg/dL Urine Blood (NEGATIVE) Urine Nitrate (NEGATIVE) Urine Bilirubin (NEGATIVE) Urine Urobilinogen (<1 E.U./dL) E.U./dL Ur Leukocyte Esterase (NEGATIVE) Halima/uL Urine RBC (0-2) /hpf Urine WBC (0-6) /hpf Ur Epithelial Cells (0-5) /hpf Urine Bacteria (NEG) Hyaline Casts /hpf Urine Other Blood Type O POSITIVE Antibody Screen Positive Antibody Identification Non Specific Antibody BBK History Checked Patient has bt 08/03/18 08/03/18 08/03/18 Range/Units 06:50 06:50 06:50 WBC 17.8 H (4.5-11.0) 10^3/ul RBC 4.10 (3.5-6.1) 10^6/uL Hgb 9.9 L (12.0-16.0) g/dL Hct 32.2 L (36.0-48.0) % MCV 78.5 L (80.0-105.0) fl MCH 24.1 L (25.0-35.0) pg MCHC 30.7 L (31.0-37.0) g/dl RDW 15.1 H (11.5-14.5) % Plt Count 376 (120.0-450.0) 10^3/uL MPV 9.5 (7.0-11.0) fl Gran % 93.6 H (50.0-68.0) % Lymph % (Auto) 4.3 L (22.0-35.0) % [place] % (Auto) 2.1 (1.0-6.0) % Eos % (Auto) 0.0 L (1.5-5.0) % Baso % (Auto) 0.0 (0.0-3.0) % Gran # 16.69 H (1.4-6.5) Lymph # (Auto) 0.8 L (1.2-3.4) [place] # (Auto) 0.4 (0.1-0.6) Eos # (Auto) 0.0 (0.0-0.7) Baso # (Auto) 0.00 (0.0-2.0) K/mm3 Neutrophils % (Manual) (50.0-70.0) % Band Neutrophils % (0-2) % Lymphocytes % (Manual) (22.0-35.0) % Monocytes % (Manual) (1.0-6.0) % Platelet Evaluation (NORMAL) Hypochromasia Poikilocytosis (manual PT (9.4-12.5) SECONDS INR APTT (25.1-36.5) Seconds D-Dimer, Quantitative (0-243) ng/mlDDU pO2 (30-55) mm/Hg VBG pH (7.32-7.43) VBG pCO2 (40-60) VBG HCO3 (21-28) mmol/l VBG Total CO2 (22-28) mmol.L VBG O2 Sat (Calc) (40-65) % VBG Base Excess (0.0-2.0) mmol/L VBG Potassium (3.6-5.2) mmol/L Sodium 141 (132-148) mmol/L Chloride 108 H (98-107) mmol/L Glucose (65-105) mg/dl Lactate (0.7-2.1) mmol/L FiO2 % Potassium 4.2 (3.6-5.0) mmol/L Carbon Dioxide 26 (21-33) mmol/L Anion Gap 12 (10-20) BUN 12 (7-21) mg/dL Creatinine 1.0 (0.7-1.2) mg/dl Est GFR ( Amer) > 60 Est GFR (Non-Af Amer) 58 POC Glucose (mg/dL) (65-110) mg/dL Random Glucose 135 H (70-110) mg/dL Calcium 9.0 (8.4-10.5) mg/dL Magnesium (1.7-2.2) mg/dL Total Bilirubin 0.4 (0.2-1.3) mg/dL AST 47 H D (14-36) U/L ALT 39 (7-56) U/L Alkaline Phosphatase 114 (38-126) U/L Lactate Dehydrogenase (333-699) U/L Total Creatine Kinase (35-230) U/L Troponin I ng/mL C-React Prot High Sens > 15.00 H (1.00-3.00) mg/L NT-Pro-B Natriuret Pep (0-450) pg/mL Total Protein 7.7 (5.8-8.3) g/dL Albumin 4.0 (3.0-4.8) g/dL Globulin 3.7 gm/dL Albumin/Globulin Ratio 1.1 (1.1-1.8) Venous Blood Potassium (3.6-5.2) mmol/L Urine Color (YELLOW) Urine Appearance (CLEAR) Urine pH (4.7-8.0) Ur Specific [place] (1.005-1.035) Urine Protein (<30 mg/dL) mg/dL Urine Glucose (UA) (NEGATIVE) mg/dL Urine Ketones (NEGATIVE) mg/dL Urine Blood (NEGATIVE) Urine Nitrate (NEGATIVE) Urine Bilirubin (NEGATIVE) Urine Urobilinogen (<1 E.U./dL) E.U./dL Ur Leukocyte Esterase (NEGATIVE) Halima/uL Urine RBC (0-2) /hpf Urine WBC (0-6) /hpf Ur Epithelial Cells (0-5) /hpf Urine Bacteria (NEG) Hyaline Casts /hpf Urine Other Blood Type Antibody Screen Antibody Identification BBK History Checked 08/03/18 08/02/18 08/02/18 Range/Units 01:10 18:30 18:20 WBC 18.0 H D (4.5-11.0) 10^3/ul RBC 3.92 (3.5-6.1) 10^6/uL Hgb 9.6 L (12.0-16.0) g/dL Hct 30.6 L (36.0-48.0) % MCV 78.1 L (80.0-105.0) fl MCH 24.5 L (25.0-35.0) pg MCHC 31.4 (31.0-37.0) g/dl RDW 15.1 H (11.5-14.5) % Plt Count 356 (120.0-450.0) 10^3/uL MPV 9.2 (7.0-11.0) fl Gran % 94.9 H (50.0-68.0) % Lymph % (Auto) 3.5 L (22.0-35.0) % [place] % (Auto) 1.6 (1.0-6.0) % Eos % (Auto) 0.0 L (1.5-5.0) % Baso % (Auto) 0.0 (0.0-3.0) % Gran # 17.04 H (1.4-6.5) Lymph # (Auto) 0.6 L (1.2-3.4) [place] # (Auto) 0.3 (0.1-0.6) Eos # (Auto) 0.0 (0.0-0.7) Baso # (Auto) 0.00 (0.0-2.0) K/mm3 Neutrophils % (Manual) 94 H (50.0-70.0) % Band Neutrophils % 1 (0-2) % Lymphocytes % (Manual) 3 L (22.0-35.0) % Monocytes % (Manual) 2 (1.0-6.0) % Platelet Evaluation Normal (NORMAL) Hypochromasia 1+ Poikilocytosis (manual Slight PT 10.5 (9.4-12.5) SECONDS INR 0.92 APTT 32.2 (25.1-36.5) Seconds D-Dimer, Quantitative 396 H (0-243) ng/mlDDU pO2 (30-55) mm/Hg VBG pH (7.32-7.43) VBG pCO2 (40-60) VBG HCO3 (21-28) mmol/l VBG Total CO2 (22-28) mmol.L VBG O2 Sat (Calc) (40-65) % VBG Base Excess (0.0-2.0) mmol/L VBG Potassium (3.6-5.2) mmol/L Sodium (132-148) mmol/L Chloride (98-107) mmol/L Glucose (65-105) mg/dl Lactate (0.7-2.1) mmol/L FiO2 % Potassium (3.6-5.0) mmol/L Carbon Dioxide (21-33) mmol/L Anion Gap (10-20) BUN (7-21) mg/dL Creatinine (0.7-1.2) mg/dl Est GFR ( Amer) Est GFR (Non-Af Amer) POC Glucose (mg/dL) (65-110) mg/dL Random Glucose (70-110) mg/dL Calcium (8.4-10.5) mg/dL Magnesium (1.7-2.2) mg/dL Total Bilirubin (0.2-1.3) mg/dL AST (14-36) U/L ALT (7-56) U/L Alkaline Phosphatase (38-126) U/L Lactate Dehydrogenase (333-699) U/L Total Creatine Kinase (35-230) U/L Troponin I ng/mL C-React Prot High Sens (1.00-3.00) mg/L NT-Pro-B Natriuret Pep (0-450) pg/mL Total Protein (5.8-8.3) g/dL Albumin (3.0-4.8) g/dL Globulin gm/dL Albumin/Globulin Ratio (1.1-1.8) Venous Blood Potassium (3.6-5.2) mmol/L Urine Color Dark yellow (YELLOW) Urine Appearance Slight-cloudy (CLEAR) Urine pH 6.5 (4.7-8.0) Ur Specific [place] 1.020 (1.005-1.035) Urine Protein 100 H (<30 mg/dL) mg/dL Urine Glucose (UA) Negative (NEGATIVE) mg/dL Urine Ketones Trace H (NEGATIVE) mg/dL Urine Blood Large H (NEGATIVE) Urine Nitrate Negative (NEGATIVE) Urine Bilirubin Negative (NEGATIVE) Urine Urobilinogen 0.2 (<1 E.U./dL) E.U./dL Ur Leukocyte Esterase Small H (NEGATIVE) Halima/uL Urine RBC 2 - 5 (0-2) /hpf Urine WBC 1 - 3 (0-6) /hpf Ur Epithelial Cells 4 - 5 (0-5) /hpf Urine Bacteria Small (NEG) Hyaline Casts 0 - 2 /hpf Urine Other Utrans Blood Type Antibody Screen Antibody Identification BBK History Checked 08/02/18 08/02/18 08/02/18 Range/Units 18:20 18:20 18:20 WBC 7.3 D (4.5-11.0) 10^3/ul RBC 4.05 (3.5-6.1) 10^6/uL Hgb 9.9 L (12.0-16.0) g/dL Hct 31.8 L (36.0-48.0) % MCV 78.5 L D (80.0-105.0) fl MCH 24.4 L (25.0-35.0) pg MCHC 31.1 (31.0-37.0) g/dl RDW 15.2 H (11.5-14.5) % Plt Count 391 (120.0-450.0) 10^3/uL MPV 9.8 (7.0-11.0) fl Gran % 77.3 H (50.0-68.0) % Lymph % (Auto) 14.7 L (22.0-35.0) % [place] % (Auto) 6.4 H (1.0-6.0) % Eos % (Auto) 1.5 (1.5-5.0) % Baso % (Auto) 0.1 (0.0-3.0) % Gran # 5.66 (1.4-6.5) Lymph # (Auto) 1.1 L (1.2-3.4) [place] # (Auto) 0.5 (0.1-0.6) Eos # (Auto) 0.1 (0.0-0.7) Baso # (Auto) 0.01 (0.0-2.0) K/mm3 Neutrophils % (Manual) (50.0-70.0) % Band Neutrophils % (0-2) % Lymphocytes % (Manual) (22.0-35.0) % Monocytes % (Manual) (1.0-6.0) % Platelet Evaluation (NORMAL) Hypochromasia Poikilocytosis (manual PT (9.4-12.5) SECONDS INR APTT (25.1-36.5) Seconds D-Dimer, Quantitative (0-243) ng/mlDDU pO2 111 H (30-55) mm/Hg VBG pH 7.41 (7.32-7.43) VBG pCO2 37.0 L (40-60) VBG HCO3 23.5 (21-28) mmol/l VBG Total CO2 24.6 (22-28) mmol.L VBG O2 Sat (Calc) 98.9 H (40-65) % VBG Base Excess -0.8 L (0.0-2.0) mmol/L VBG Potassium 3.8 (3.6-5.2) mmol/L Sodium 138 139.0 (132-148) mmol/L Chloride 108 H 111.0 H (98-107) mmol/L Glucose 130 H (65-105) mg/dl Lactate 1.6 (0.7-2.1) mmol/L FiO2 21.0 % Potassium 3.8 (3.6-5.0) mmol/L Carbon Dioxide 22 (21-33) mmol/L Anion Gap 12 (10-20) BUN 15 (7-21) mg/dL Creatinine 1.0 (0.7-1.2) mg/dl Est GFR ( Amer) > 60 Est GFR (Non-Af Amer) 58 POC Glucose (mg/dL) (65-110) mg/dL Random Glucose 131 H (70-110) mg/dL Calcium 9.1 (8.4-10.5) mg/dL Magnesium 2.0 (1.7-2.2) mg/dL Total Bilirubin (0.2-1.3) mg/dL AST (14-36) U/L ALT (7-56) U/L Alkaline Phosphatase (38-126) U/L Lactate Dehydrogenase 643 (333-699) U/L Total Creatine Kinase 39 (35-230) U/L Troponin I < 0.01 ng/mL C-React Prot High Sens (1.00-3.00) mg/L NT-Pro-B Natriuret Pep 957 H (0-450) pg/mL Total Protein (5.8-8.3) g/dL Albumin (3.0-4.8) g/dL Globulin gm/dL Albumin/Globulin Ratio (1.1-1.8) Venous Blood Potassium 3.8 (3.6-5.2) mmol/L Urine Color (YELLOW) Urine Appearance (CLEAR) Urine pH (4.7-8.0) Ur Specific [place] (1.005-1.035) Urine Protein (<30 mg/dL) mg/dL Urine Glucose (UA) (NEGATIVE) mg/dL Urine Ketones (NEGATIVE) mg/dL Urine Blood (NEGATIVE) Urine Nitrate (NEGATIVE) Urine Bilirubin (NEGATIVE) Urine Urobilinogen (<1 E.U./dL) E.U./dL Ur Leukocyte Esterase (NEGATIVE) Halima/uL Urine RBC (0-2) /hpf Urine WBC (0-6) /hpf Ur Epithelial Cells (0-5) /hpf Urine Bacteria (NEG) Hyaline Casts /hpf Urine Other Blood Type Antibody Screen Antibody Identification BBK History Checked Laboratory Results - last 24 hr 08/02/18 08/02/18 08/02/18 18:20 18:20 18:20 WBC 7.3 D RBC 4.05 Hgb 9.9 L Hct 31.8 L MCV 78.5 L D MCH 24.4 L MCHC 31.1 RDW 15.2 H Plt Count 391 MPV 9.8 Gran % 77.3 H Lymph % (Auto) 14.7 L [place] % (Auto) 6.4 H Eos % (Auto) 1.5 Baso % (Auto) 0.1 Gran # 5.66 Lymph # (Auto) 1.1 L [place] # (Auto) 0.5 Eos # (Auto) 0.1 Baso # (Auto) 0.01 Neutrophils % (Manual) Band Neutrophils % Lymphocytes % (Manual) Monocytes % (Manual) Platelet Evaluation Hypochromasia Poikilocytosis (manual PT INR APTT D-Dimer, Quantitative pO2 111 H VBG pH 7.41 VBG pCO2 37.0 L VBG HCO3 23.5 VBG Total CO2 24.6 VBG O2 Sat (Calc) 98.9 H VBG Base Excess -0.8 L VBG Potassium 3.8 Sodium 139.0 138 Chloride 111.0 H 108 H Glucose 130 H Lactate 1.6 FiO2 21.0 Potassium 3.8 Carbon Dioxide 22 Anion Gap 12 BUN 15 Creatinine 1.0 Est GFR ( Amer) > 60 Est GFR (Non-Af Amer) 58 POC Glucose (mg/dL) Random Glucose 131 H Calcium 9.1 Magnesium 2.0 Total Bilirubin AST ALT Alkaline Phosphatase Lactate Dehydrogenase 643 Total Creatine Kinase 39 Troponin I < 0.01 C-React Prot High Sens NT-Pro-B Natriuret Pep 957 H Total Protein Albumin Globulin Albumin/Globulin Ratio Venous Blood Potassium 3.8 Urine Color Urine Appearance Urine pH Ur Specific [place] Urine Protein Urine Glucose (UA) Urine Ketones Urine Blood Urine Nitrate Urine Bilirubin Urine Urobilinogen Ur Leukocyte Esterase Urine RBC Urine WBC Ur Epithelial Cells Urine Bacteria Hyaline Casts Urine Other Blood Type Antibody Screen Antibody Identification BBK History Checked 08/02/18 08/02/18 08/03/18 18:20 18:30 01:10 WBC 18.0 H D RBC 3.92 Hgb 9.6 L Hct 30.6 L MCV 78.1 L MCH 24.5 L MCHC 31.4 RDW 15.1 H Plt Count 356 MPV 9.2 Gran % 94.9 H Lymph % (Auto) 3.5 L [place] % (Auto) 1.6 Eos % (Auto) 0.0 L Baso % (Auto) 0.0 Gran # 17.04 H Lymph # (Auto) 0.6 L [place] # (Auto) 0.3 Eos # (Auto) 0.0 Baso # (Auto) 0.00 Neutrophils % (Manual) 94 H Band Neutrophils % 1 Lymphocytes % (Manual) 3 L Monocytes % (Manual) 2 Platelet Evaluation Normal Hypochromasia 1+ Poikilocytosis (manual Slight PT 10.5 INR 0.92 APTT 32.2 D-Dimer, Quantitative 396 H pO2 VBG pH VBG pCO2 VBG HCO3 VBG Total CO2 VBG O2 Sat (Calc) VBG Base Excess VBG Potassium Sodium Chloride Glucose Lactate FiO2 Potassium Carbon Dioxide Anion Gap BUN Creatinine Est GFR ( Amer) Est GFR (Non-Af Amer) POC Glucose (mg/dL) Random Glucose Calcium Magnesium Total Bilirubin AST ALT Alkaline Phosphatase Lactate Dehydrogenase Total Creatine Kinase Troponin I C-React Prot High Sens NT-Pro-B Natriuret Pep Total Protein Albumin Globulin Albumin/Globulin Ratio Venous Blood Potassium Urine Color Dark yellow Urine Appearance Slight-cloudy Urine pH 6.5 Ur Specific [place] 1.020 Urine Protein 100 H Urine Glucose (UA) Negative Urine Ketones Trace H Urine Blood Large H Urine Nitrate Negative Urine Bilirubin Negative Urine Urobilinogen 0.2 Ur Leukocyte Esterase Small H Urine RBC 2 - 5 Urine WBC 1 - 3 Ur Epithelial Cells 4 - 5 Urine Bacteria Small Hyaline Casts 0 - 2 Urine Other Utrans Blood Type Antibody Screen Antibody Identification BBK History Checked 08/03/18 08/03/18 08/03/18 06:50 06:50 06:50 WBC 17.8 H RBC 4.10 Hgb 9.9 L Hct 32.2 L MCV 78.5 L MCH 24.1 L MCHC 30.7 L RDW 15.1 H Plt Count 376 MPV 9.5 Gran % 93.6 H Lymph % (Auto) 4.3 L [place] % (Auto) 2.1 Eos % (Auto) 0.0 L Baso % (Auto) 0.0 Gran # 16.69 H Lymph # (Auto) 0.8 L [place] # (Auto) 0.4 Eos # (Auto) 0.0 Baso # (Auto) 0.00 Neutrophils % (Manual) Band Neutrophils % Lymphocytes % (Manual) Monocytes % (Manual) Platelet Evaluation Hypochromasia Poikilocytosis (manual PT INR APTT D-Dimer, Quantitative pO2 VBG pH VBG pCO2 VBG HCO3 VBG Total CO2 VBG O2 Sat (Calc) VBG Base Excess VBG Potassium Sodium 141 Chloride 108 H Glucose Lactate FiO2 Potassium 4.2 Carbon Dioxide 26 Anion Gap 12 BUN 12 Creatinine 1.0 Est GFR ( Amer) > 60 Est GFR (Non-Af Amer) 58 POC Glucose (mg/dL) Random Glucose 135 H Calcium 9.0 Magnesium Total Bilirubin 0.4 AST 47 H D ALT 39 Alkaline Phosphatase 114 Lactate Dehydrogenase Total Creatine Kinase Troponin I C-React Prot High Sens > 15.00 H NT-Pro-B Natriuret Pep Total Protein 7.7 Albumin 4.0 Globulin 3.7 Albumin/Globulin Ratio 1.1 Venous Blood Potassium Urine Color Urine Appearance Urine pH Ur Specific [place] Urine Protein Urine Glucose (UA) Urine Ketones Urine Blood Urine Nitrate Urine Bilirubin Urine Urobilinogen Ur Leukocyte Esterase Urine RBC Urine WBC Ur Epithelial Cells Urine Bacteria Hyaline Casts Urine Other Blood Type Antibody Screen Antibody Identification BBK History Checked 08/03/18 08/03/18 08/03/18 06:50 08:24 11:09 WBC RBC Hgb Hct MCV MCH MCHC RDW Plt Count MPV Gran % Lymph % (Auto) [place] % (Auto) Eos % (Auto) Baso % (Auto) Gran # Lymph # (Auto) [place] # (Auto) Eos # (Auto) Baso # (Auto) Neutrophils % (Manual) Band Neutrophils % Lymphocytes % (Manual) Monocytes % (Manual) Platelet Evaluation Hypochromasia Poikilocytosis (manual PT INR APTT D-Dimer, Quantitative pO2 VBG pH VBG pCO2 VBG HCO3 VBG Total CO2 VBG O2 Sat (Calc) VBG Base Excess VBG Potassium Sodium Chloride Glucose Lactate FiO2 Potassium Carbon Dioxide Anion Gap BUN Creatinine Est GFR ( Amer) Est GFR (Non-Af Amer) POC Glucose (mg/dL) 127 H 103 Random Glucose Calcium Magnesium Total Bilirubin AST ALT Alkaline Phosphatase Lactate Dehydrogenase Total Creatine Kinase Troponin I C-React Prot High Sens NT-Pro-B Natriuret Pep Total Protein Albumin Globulin Albumin/Globulin Ratio Venous Blood Potassium Urine Color Urine Appearance Urine pH Ur Specific [place] Urine Protein Urine Glucose (UA) Urine Ketones Urine Blood Urine Nitrate Urine Bilirubin Urine Urobilinogen Ur Leukocyte Esterase Urine RBC Urine WBC Ur Epithelial Cells Urine Bacteria Hyaline Casts Urine Other Blood Type O POSITIVE Antibody Screen Positive Antibody Identification Non Specific Antibody BBK History Checked Patient has bt EKG/Cardiology Studies: Cardiology / EKG Studies 08/02/18 18:20 ELECTROCARDIOGRAM Stat Comment: Reason For Exam: vomiting/sob Assessment/Plan - Assessment and Plan (Free Text) Plan: Patient seen and examined on rounds, agree with note with following additions/exceptions: Patient is 53yo female with PMHx Behcet's disease, diabetes, hypertension, CHF with EF 30%, COPD, and ICD placement presented with multiple episodes of renny temesis on 08/02. Currently afebrile, BP stable, comfortable in NAD, doing well, complaining of throat pain/soreness. GI consulted HH has been stable No further episodes of hematemesis while in ICU Pt has history of non compliance with meds and follow up Behcets disease DM HTN CHF, chronic systolic Hematemesis Anemia Recommend: - supp o2 as needed, duonebs PRN - follow up cultures - BP control - monitor HH - NPO - PPI - GI eval, possible EGD - Solumedrol IV - GI ppx - DVT ppx, SCDs - monitor in MICU
--- NOTE | 2018-08-03 11:24 | CP.PCM.CON ---
<Nikolai Rivero - Last Filed: 08/03/18 12:44> History of Present Illness - History of Present Illness History of Present Illness: Evangelist Rivero PGY2 IM Resident - Consult Note for Dr. Adams Consult: Hematemesis HPI: 53 year old female with past medical history of systolic CHF with AICD currently on heart transplant list, HTN, COPD, CVA, DM2 and ?hx of bechets who presented to [facility] ED complaining of hematemesis. Patient reports multiple episodes of hematemsis with large amounts of bright red blood. In ED patient is noted to have ~200mL bright red blood collection over her time being monitored in ED. Patient also complains of throat swelling and itching at time of ED visit. She was given IV solumedrol, neck soft tissue CT conducted showing swelling of epilgotic field and chest CT for which showed no hepatomegaly, normal spleen. Patient denies chest pain, shortness of breath, abdominal discomfort. PMH: As above PSH: AICD in 2010, x2 FH: Significant for [place] SH: Denies alcohol, denies tobacco, denies drugs Allergies: seafood: anaphylaxis, Tylenol: anaphylaxis Meds: MAR reviewed PMD: Dr Armstrong Review of Systems - Review of Systems All systems: reviewed and no additional remarkable complaints except (as mentioned in HPI) Past Patient History - Infectious Disease Hx of Infectious Diseases: None - Tetanus Immunizations Tetanus Immunization: Unknown - Past Social History Smoking Status: Never Smoked - CARDIAC Hx Cardiac Disorders: Yes Hx Cardia Arrhythmia: Yes Hx Congestive Heart Failure: Yes Hx Hypertension: Yes Hx Internal Defibrillator: Yes (2010) Hx Pacemaker: Yes Other/Comment: waiting list for heart transplant - PULMONARY Hx Respiratory Disorders: No - NEUROLOGICAL Hx Neurological Disorder: Yes HX Cerebrovascular Accident: Yes - HEENT Hx HEENT Problems: Yes (Wears glasses.) - RENAL Hx Chronic Kidney Disease: No - ENDOCRINE/METABOLIC Hx Endocrine Disorders: No - HEMATOLOGICAL/ONCOLOGICAL Hx Blood Disorders: Yes Hx Anemia: Yes (with blood transfusion) - INTEGUMENTARY Hx Dermatological Problems: No - MUSCULOSKELETAL/RHEUMATOLOGICAL Hx Falls: No - GASTROINTESTINAL Hx Gastrointestinal Disorders: Yes Hx Gastroesophageal Reflux: Yes - GENITOURINARY/GYNECOLOGICAL Hx Genitourinary Disorders: No - PSYCHIATRIC Hx Psychophysiologic Disorder: Yes Hx Anxiety: Yes Hx Substance Use: No - SURGICAL HISTORY Hx Cardiac Catheterization: Yes Other/Comment: defibrillator 2011 - ANESTHESIA Hx Anesthesia: Yes Hx Anesthesia Reactions: No Hx Malignant Hyperthermia: No Meds Allergies/Adverse Reactions: Allergies Allergy/AdvReac Type Severity Reaction Status Date / Time acetaminophen Allergy ANGIOEDEMA Verified 05/13/18 12:31 cefepime Allergy ANAPHYLAXIS Verified 05/13/18 12:31 - Medications Medications: Current Medications Benzocaine/Menthol (Cepacol Sore Throat) 1 nicol MT Q2H PRN PRN Reason: Sore Throat Sodium Chloride (Sodium Chloride 0.9%) 1,000 mls @ 50 mls/hr IV .Q20H [facility] Last Admin: 08/03/18 01:48 Dose: 50 mls/hr Insulin Human Regular (Humulin R Med) 0 units SC [facility]; Protocol Last Admin: 08/03/18 09:22 Dose: Not Given Methylprednisolone (Solu-Medrol) 40 mg IVP DAILY [facility] Last Admin: 08/03/18 09:44 Dose: 40 mg Pantoprazole Sodium (Protonix Inj) 40 mg IVP BID [facility] Last Admin: 08/03/18 09:42 Dose: 40 mg Physical Exam - Constitutional Appears: No Acute Distress - Head Exam Head Exam: ATRAUMATIC, NORMAL INSPECTION, NORMOCEPHALIC - Eye Exam Eye Exam: EOMI, PERRL - ENT Exam Additional comments: singular oral lesion underneath tongue No oral lesions appreciated, no dry dark blood noted around mouth - Respiratory Exam Respiratory Exam: Clear to Auscultation Bilateral - Cardiovascular Exam Cardiovascular Exam: REGULAR RHYTHM, +S1, +S2 - GI/Abdominal Exam GI & Abdominal Exam: Normal Bowel Sounds, Soft - Rectal Exam Rectal Exam: Hemorrhoids (external no sign of bleeding ). absent: Black Stool, Bloody Stool, Fecal Impaction - Neurological Exam Neurological exam: Alert, CN II-XII Intact, Oriented x3 - Psychiatric Exam Psychiatric exam: Normal Affect, Normal Mood - Skin Skin Exam: Dry, Intact Results - Vital Signs Recent Vital Signs: Last Vital Signs Temp 98.1 F 08/03/18 01:46 Pulse 77 08/03/18 10:20 Resp 13 08/03/18 10:20 BP 136/70 08/03/18 10:00 Pulse Ox 99 08/03/18 10:20 - Labs Result Diagrams: 08/03/18 12:03 08/03/18 06:50 Labs: Laboratory Results - last 24 hr 08/02/18 08/02/18 08/02/18 18:20 18:20 18:20 WBC 7.3 D RBC 4.05 Hgb 9.9 L Hct 31.8 L MCV 78.5 L D MCH 24.4 L MCHC 31.1 RDW 15.2 H Plt Count 391 MPV 9.8 Gran % 77.3 H Lymph % (Auto) 14.7 L [place]berry % (Auto) 6.4 H Eos % (Auto) 1.5 Baso % (Auto) 0.1 Gran # 5.66 Lymph # (Auto) 1.1 L [place] # (Auto) 0.5 Eos # (Auto) 0.1 Baso # (Auto) 0.01 Neutrophils % (Manual) Band Neutrophils % Lymphocytes % (Manual) Monocytes % (Manual) Platelet Evaluation Hypochromasia Poikilocytosis (manual PT INR APTT D-Dimer, Quantitative pO2 111 H VBG pH 7.41 VBG pCO2 37.0 L VBG HCO3 23.5 VBG Total CO2 24.6 VBG O2 Sat (Calc) 98.9 H VBG Base Excess -0.8 L VBG Potassium 3.8 Sodium 139.0 138 Chloride 111.0 H 108 H Glucose 130 H Lactate 1.6 FiO2 21.0 Potassium 3.8 Carbon Dioxide 22 Anion Gap 12 BUN 15 Creatinine 1.0 Est GFR ( Amer) > 60 Est GFR (Non-Af Amer) 58 POC Glucose (mg/dL) Random Glucose 131 H Calcium 9.1 Magnesium 2.0 Total Bilirubin AST ALT Alkaline Phosphatase Lactate Dehydrogenase 643 Total Creatine Kinase 39 Troponin I < 0.01 NT-Pro-B Natriuret Pep 957 H Total Protein Albumin Globulin Albumin/Globulin Ratio Venous Blood Potassium 3.8 Urine Color Urine Appearance Urine pH Ur Specific [place] Urine Protein Urine Glucose (UA) Urine Ketones Urine Blood Urine Nitrate Urine Bilirubin Urine Urobilinogen Ur Leukocyte Esterase Urine RBC Urine WBC Ur Epithelial Cells Urine Bacteria Hyaline Casts Urine Other Blood Type Antibody Screen BBK History Checked 08/02/18 08/02/18 08/03/18 18:20 18:30 01:10 WBC 18.0 H D RBC 3.92 Hgb 9.6 L Hct 30.6 L MCV 78.1 L MCH 24.5 L MCHC 31.4 RDW 15.1 H Plt Count 356 MPV 9.2 Gran % 94.9 H Lymph % (Auto) 3.5 L [place] % (Auto) 1.6 Eos % (Auto) 0.0 L Baso % (Auto) 0.0 Gran # 17.04 H Lymph # (Auto) 0.6 L [place] # (Auto) 0.3 Eos # (Auto) 0.0 Baso # (Auto) 0.00 Neutrophils % (Manual) 94 H Band Neutrophils % 1 Lymphocytes % (Manual) 3 L Monocytes % (Manual) 2 Platelet Evaluation Normal Hypochromasia 1+ Poikilocytosis (manual Slight PT 10.5 INR 0.92 APTT 32.2 D-Dimer, Quantitative 396 H pO2 VBG pH VBG pCO2 VBG HCO3 VBG Total CO2 VBG O2 Sat (Calc) VBG Base Excess VBG Potassium Sodium Chloride Glucose Lactate FiO2 Potassium Carbon Dioxide Anion Gap BUN Creatinine Est GFR ( Amer) Est GFR (Non-Af Amer) POC Glucose (mg/dL) Random Glucose Calcium Magnesium Total Bilirubin AST ALT Alkaline Phosphatase Lactate Dehydrogenase Total Creatine Kinase Troponin I NT-Pro-B Natriuret Pep Total Protein Albumin Globulin Albumin/Globulin Ratio Venous Blood Potassium Urine Color Dark yellow Urine Appearance Slight-cloudy Urine pH 6.5 Ur Specific [place] 1.020 Urine Protein 100 H Urine Glucose (UA) Negative Urine Ketones Trace H Urine Blood Large H Urine Nitrate Negative Urine Bilirubin Negative Urine Urobilinogen 0.2 Ur Leukocyte Esterase Small H Urine RBC 2 - 5 Urine WBC 1 - 3 Ur Epithelial Cells 4 - 5 Urine Bacteria Small Hyaline Casts 0 - 2 Urine Other Utrans Blood Type Antibody Screen BBK History Checked 08/03/18 08/03/18 08/03/18 06:50 06:50 06:50 WBC 17.8 H RBC 4.10 Hgb 9.9 L Hct 32.2 L MCV 78.5 L MCH 24.1 L MCHC 30.7 L RDW 15.1 H Plt Count 376 MPV 9.5 Gran % 93.6 H Lymph % (Auto) 4.3 L [place] % (Auto) 2.1 Eos % (Auto) 0.0 L Baso % (Auto) 0.0 Gran # 16.69 H Lymph # (Auto) 0.8 L [place] # (Auto) 0.4 Eos # (Auto) 0.0 Baso # (Auto) 0.00 Neutrophils % (Manual) Band Neutrophils % Lymphocytes % (Manual) Monocytes % (Manual) Platelet Evaluation Hypochromasia Poikilocytosis (manual PT INR APTT D-Dimer, Quantitative pO2 VBG pH VBG pCO2 VBG HCO3 VBG Total CO2 VBG O2 Sat (Calc) VBG Base Excess VBG Potassium Sodium 141 Chloride 108 H Glucose Lactate FiO2 Potassium 4.2 Carbon Dioxide 26 Anion Gap 12 BUN 12 Creatinine 1.0 Est GFR ( Amer) > 60 Est GFR (Non-Af Amer) 58 POC Glucose (mg/dL) Random Glucose 135 H Calcium 9.0 Magnesium Total Bilirubin 0.4 AST 47 H D ALT 39 Alkaline Phosphatase 114 Lactate Dehydrogenase Total Creatine Kinase Troponin I NT-Pro-B Natriuret Pep Total Protein 7.7 Albumin 4.0 Globulin 3.7 Albumin/Globulin Ratio 1.1 Venous Blood Potassium Urine Color Urine Appearance Urine pH Ur Specific [place] Urine Protein Urine Glucose (UA) Urine Ketones Urine Blood Urine Nitrate Urine Bilirubin Urine Urobilinogen Ur Leukocyte Esterase Urine RBC Urine WBC Ur Epithelial Cells Urine Bacteria Hyaline Casts Urine Other Blood Type O POSITIVE Antibody Screen Positive BBK History Checked Patient has bt 08/03/18 08:24 WBC RBC Hgb Hct MCV MCH MCHC RDW Plt Count MPV Gran % Lymph % (Auto) New[place] % (Auto) Eos % (Auto) Baso % (Auto) Gran # Lymph # (Auto) [place] # (Auto) Eos # (Auto) Baso # (Auto) Neutrophils % (Manual) Band Neutrophils % Lymphocytes % (Manual) Monocytes % (Manual) Platelet Evaluation Hypochromasia Poikilocytosis (manual PT INR APTT D-Dimer, Quantitative pO2 VBG pH VBG pCO2 VBG HCO3 VBG Total CO2 VBG O2 Sat (Calc) VBG Base Excess VBG Potassium Sodium Chloride Glucose Lactate FiO2 Potassium Carbon Dioxide Anion Gap BUN Creatinine Est GFR ( Amer) Est GFR (Non-Af Amer) POC Glucose (mg/dL) 127 H Random Glucose Calcium Magnesium Total Bilirubin AST ALT Alkaline Phosphatase Lactate Dehydrogenase Total Creatine Kinase Troponin I NT-Pro-B Natriuret Pep Total Protein Albumin Globulin Albumin/Globulin Ratio Venous Blood Potassium Urine Color Urine Appearance Urine pH Ur Specific [place] Urine Protein Urine Glucose (UA) Urine Ketones Urine Blood Urine Nitrate Urine Bilirubin Urine Urobilinogen Ur Leukocyte Esterase Urine RBC Urine WBC Ur Epithelial Cells Urine Bacteria Hyaline Casts Urine Other Blood Type Antibody Screen BBK History Checked Assessment & Plan - Assessment and Plan (Free Text) Assessment: 53 year old female with past medical history of systolic CHF with AICD currently on heart transplant list, HTN, COPD, CVA, DM2 and ?hx of bechets who presented with history of hematemesis. Plan: Hematemesis ?hx Behcet's Systolic CHF s/p AICD COPD DM2 HTN - H/H stable, continue to trend cbc - Significant blood loss of 200mL reported in ED - No prior hx of EGD or upper GI evaluation - Once patient stabilized consider endoscopic evaluation - CHF management per Cardio - Further recommendations per Dr. Kyle - Date & Time Date: 08/03/18 Time: 12:49 <Clau Adams V - Last Filed: 08/04/18 17:45> Meds - Medications Medications: Current Medications Benzocaine/Menthol (Cepacol Sore Throat) 1 nicol MT Q2H PRN PRN Reason: Sore Throat Last Admin: 08/04/18 17:33 Dose: 1 nicol Carvedilol (Coreg) 25 mg PO BID [facility] Last Admin: 08/04/18 17:29 Dose: 25 mg Al Hydrox/Mg Hydrox/Simethicone 30 ml/Diphenhydramine HCl 75 mg/Lidocaine 30 ml 0 ml PO Q2H PRN PRN Reason: Mouth/Throat Pain Cyanocobalamin (Vitamin B12 1000 Mcg/Ml Inj) 1,000 mcg IM DAILY [facility] Last Admin: 08/04/18 10:42 Dose: 1,000 mcg Sodium Chloride (Sodium Chloride 0.9%) 1,000 mls @ 50 mls/hr IV .Q20H [facility] Last Admin: 08/04/18 17:31 Dose: 50 mls/hr Aztreonam (Azactam 1 Gm) 100 mls @ 100 mls/hr IVPB Q8 [facility]; Protocol Stop: 08/11/18 14:01 Last Admin: 08/04/18 13:40 Dose: 100 mls/hr Linezolid (Zyvox 600mg/300ml D5w) 600 mg in 300 mls @ 200 mls/hr IVPB Q12 [facility]; Protocol Stop: 08/11/18 10:01 Last Admin: 08/04/18 10:42 Dose: 200 mls/hr Metronidazole (Flagyl) 500 mg in 100 mls @ 100 mls/hr IVPB Q8 [facility]; Protocol Last Admin: 08/04/18 13:42 Dose: 100 mls/hr Insulin Human Regular (Humulin R Med) 0 units SC ACHS [facility]; Protocol Last Admin: 08/04/18 17:31 Dose: Not Given Lorazepam (Ativan) 0.5 mg IVP Q6H PRN; Protocol PRN Reason: Anxiety Last Admin: 08/03/18 20:00 Dose: 0.5 mg Magnesium Oxide (Mag-Ox) 400 mg PO BID [facility] Last Admin: 08/04/18 17:28 Dose: 400 mg Methylprednisolone (Solu-Medrol) 40 mg IVP DAILY [facility] Last Admin: 08/04/18 10:42 Dose: 40 mg Ondansetron HCl (Zofran Inj) 4 mg IVP Q4H PRN PRN Reason: Nausea/Vomiting Last Admin: 08/03/18 20:30 Dose: 4 mg Pantoprazole Sodium (Protonix Inj) 40 mg IVP BID [facility] Last Admin: 08/04/18 17:29 Dose: 40 mg Sacubitril/Valsartan (Entresto 97 Mg-103 Mg Tablet) 1 each PO BID [facility] Last Admin: 08/04/18 17:30 Dose: 1 each Spironolactone (Aldactone) 25 mg PO BID [facility] Last Admin: 08/04/18 17:28 Dose: 25 mg Results - Vital Signs Recent Vital Signs: Last Vital Signs Temp 98.2 F 08/03/18 16:43 Pulse 70 08/04/18 17:29 Resp 20 08/04/18 12:10 BP 141/79 08/04/18 17:29 Pulse Ox 99 08/04/18 12:10 - Labs Result Diagrams: 08/04/18 05:00 08/04/18 05:00 Labs: Laboratory Results - last 24 hr 08/03/18 08/03/18 08/03/18 16:21 17:55 23:25 WBC 17.5 H RBC 3.87 Hgb 9.4 L Hct 30.4 L MCV 78.6 L MCH 24.3 L MCHC 30.9 L RDW 15.3 H Plt Count 368 MPV 9.6 Gran % 93.0 H Lymph % (Auto) 4.5 L [place] % (Auto) 2.5 Eos % (Auto) 0.0 L Baso % (Auto) 0.0 Gran # 16.25 H Lymph # (Auto) 0.8 L [place] # (Auto) 0.4 Eos # (Auto) 0.0 Baso # (Auto) 0.00 ESR Sodium Potassium Chloride Carbon Dioxide Anion Gap BUN Creatinine Est GFR ( Amer) Est GFR (Non-Af Amer) POC Glucose (mg/dL) 117 H 121 H Random Glucose Calcium Phosphorus Magnesium Iron TIBC % Saturation Total Bilirubin AST ALT Alkaline Phosphatase Total Protein Albumin Globulin Albumin/Globulin Ratio Triglycerides Cholesterol LDL Cholesterol Direct HDL Cholesterol Vitamin B12 Folate 08/04/18 08/04/18 08/04/18 05:00 05:00 05:00 WBC 14.6 H RBC 3.52 Hgb 8.5 L Hct 27.6 L MCV 78.4 L MCH 24.1 L MCHC 30.8 L RDW 15.2 H Plt Count 353 MPV 9.8 Gran % Lymph % (Auto) [place] % (Auto) Eos % (Auto) Baso % (Auto) Gran # Lymph # (Auto) [place] # (Auto) Eos # (Auto) Baso # (Auto) ESR 56 H Sodium 143 Potassium 3.7 Chloride 113 H Carbon Dioxide 24 Anion Gap 10 BUN 19 Creatinine 1.0 Est GFR ( Amer) > 60 Est GFR (Non-Af Amer) 58 POC Glucose (mg/dL) Random Glucose 101 Calcium 8.8 Phosphorus 4.2 Magnesium 2.4 H Iron TIBC % Saturation Total Bilirubin 0.3 AST 29 ALT 29 Alkaline Phosphatase 93 Total Protein 6.8 Albumin 3.4 Globulin 3.4 Albumin/Globulin Ratio 1.0 L Triglycerides 61 Cholesterol 136 LDL Cholesterol Direct 64 HDL Cholesterol 45 Vitamin B12 562 Folate 10.9 08/04/18 08/04/18 08/04/18 05:00 07:27 11:14 WBC RBC Hgb Hct MCV MCH MCHC RDW Plt Count MPV Gran % Lymph % (Auto) [place] % (Auto) Eos % (Auto) Baso % (Auto) Gran # Lymph # (Auto) [place] # (Auto) Eos # (Auto) Baso # (Auto) ESR Sodium Potassium Chloride Carbon Dioxide Anion Gap BUN Creatinine Est GFR ( Amer) Est GFR (Non-Af Amer) POC Glucose (mg/dL) 92 93 Random Glucose Calcium Phosphorus Magnesium Iron 18 L TIBC 355 % Saturation 5 L Total Bilirubin AST ALT Alkaline Phosphatase Total Protein Albumin Globulin Albumin/Globulin Ratio Triglycerides Cholesterol LDL Cholesterol Direct HDL Cholesterol Vitamin B12 Folate Attending/Attestation - Attestation I have personally seen and examined this patient.: Yes I have fully participated in the care of the patient.: Yes I have reviewed all pertinent clinical information: Yes Notes (Text): This is a delayed addendum to GI consult report dictated by the Family Readiness Support Assistant.The patient was seen and evaluated earlier. Medical records, lab studies, imagings were reviewed. Last 24 hours events reviewed. Agreed with the above treatment plan as outlined in Family Readiness Support Assistant 's notes with the addition of the following Admitted with acute onset of maroon and bright red blood per rectum On examination abdomen soft non tender no mass CT scan was reviewed extensive diverticulosis History of taking NSAIDs Would benefit from EGD Followup hemoglobin PPI Risk benefits alternatives explained Scheduled for EGD Discussed with the PCP 08/04/18 17:43
--- NOTE | 2018-08-03 11:42 | CT ---
Date of service: 08/02/2018 PROCEDURE: CT Chest with contrast (Pulmonary Angiogram) HISTORY: sob, hemoptysis, r/o PE COMPARISON: CT angiography of the pulmonary arteries performed 10/06/2016. TECHNIQUE: Axial computed tomography images were obtained of the chest in the pulmonary arterial phase of enhancement. Coronal and sagittal reformatted images were created and reviewed. Intravenous contrast dose: 144 mL Omnipaque 350 Radiation dose: Total exam DLP = 549.6 mGy-cm. This CT exam was performed using one or more of the following dose reduction techniques: Automated exposure control, adjustment of the mA and/or kV according to patient size, and/or use of iterative reconstruction technique. FINDINGS: PULMONARY ARTERIES: Dilated main pulmonary artery measuring 4.2 cm. No pulmonary embolism. AORTA: No acute findings. Ascending aortic ectasia measuring 3.9 cm. LUNGS: Unremarkable. No nodule, mass or pulmonary consolidation. PLEURAL SPACES: Unremarkable. No effusion or pneumothorax. HEART: Unremarkable. Cardiomegaly. No significant pericardial effusion. Left chest wall implanted cardiac device with single lead terminating in the right ventricle. LYMPH NODES: No lymphadenopathy. BONES, CHEST WALL: Unremarkable. No fracture or destructive lesion OTHER FINDINGS: 1.4 cm complex nodule in the right thyroid. Small hiatal hernia. IMPRESSION: Unremarkable CT pulmonary angiogram. No pulmonary embolus. Dilated main pulmonary artery compatible with pulmonary arterial hypertension. Ascending aortic ectasia measuring 3.9 cm. Complex nodule in the right thyroid. Dedicated thyroid ultrasound can be obtained for further evaluation on a nonemergent basis.
[2018-08-03 12:06] LABS: GRAN # 16.14 (1.4-6.5); GRAN % 93.3 % (50.0-68.0); HEMOGLOBIN 9.6 g/dL (12.0-16.0); LYMPH # 0.7 (1.2-3.4); MEAN CELL VOLUME 78.9 fl (80.0-105.0); MEAN CORPUSCULAR HEMOGLOBIN 24.4 pg (25.0-35.0); MEAN PLATELET VOLUME 9.5 fl (7.0-11.0); MONO # 0.5 (0.1-0.6); MONO % 2.7 % (1.0-6.0); RBC 3.93 10^6/uL (3.5-6.1); WHITE BLOOD COUNT 17.3 10^3/ul (4.5-11.0)
--- NOTE | 2018-08-03 13:29 | CT ---
Date of service: 08/02/2018 PROCEDURE: CT NECK WITHOUT CONTRAST HISTORY: swelling of neck session COMPARISON: None available. TECHNIQUE: CT of the neck without intravenous contrast. Coronal and sagittal reformats generated. Radiation dose: DLP 422.99 mGy-cm This CT exam was performed using one or more of the following dose reduction techniques: Automated exposure control, adjustment of the mA and/or kV according to patient size, and/or use of iterative reconstruction technique. FINDINGS: Note is made of left AICD/pacemaker deployment through thoracic inlet. NASOPHARYNX: Unremarkable. SUPRAHYOID NECK: The nasopharynx and oropharynx appear unremarkable as well as the oral cavity and submandibular triangles. INFRAHYOID NECK: However, there is thickening of the inferior left aryepiglottic fold extending into the midline glottis, likely extending over to the right glottis with posterior glottis thickened. Limited soft tissue thickening is questioned posterior to the false vocal cords. Consider potential infectious or inflammatory process though neoplasm is not excluded in this noncontrast exam. The remainder the infrahyoid neck is unremarkable. GLANDS: Parotid and submandibular glands unremarkable. Normal size thyroid gland, without nodule. LYMPH NODES: No significant lymphadenopathy. CERVICAL SPINE: Limited spondylosis seen at C3-4 and C6-7 anteriorly. Straightened curvature evident. OTHER FINDINGS: None. IMPRESSION: Thickened left aryepiglottic fold extending into the midline and possibly right glottis suspicious for infectious or inflammatory causes. Neoplasm is not excluded. Follow-up contrast neck CT or MRI with contrast recommended for further characterization. Concordant preliminary report from [facility], 08/02/2018.
[2018-08-03] MEDS ORDERED: Metoprolol 1 mg/ml Inj IVP ONE (17:20)
[2018-08-03 18:04] LABS: GRAN # 16.25 (1.4-6.5); HEMOGLOBIN 9.4 g/dL (12.0-16.0); LYMPH # 0.8 (1.2-3.4); LYMPH % 4.5 % (22.0-35.0); MEAN CELL VOLUME 78.6 fl (80.0-105.0); MEAN CORPUSCULAR HEMOGLOBIN 24.3 pg (25.0-35.0); MEAN CORPUSCULAR HGB CONC 30.9 g/dl (31.0-37.0); MEAN PLATELET VOLUME 9.6 fl (7.0-11.0); MONO # 0.4 (0.1-0.6); MONO % 2.5 % (1.0-6.0); RBC 3.87 10^6/uL (3.5-6.1); RED CELL DISTRIBUTION WIDTH 15.3 % (11.5-14.5); WHITE BLOOD COUNT 17.5 10^3/ul (4.5-11.0)
[2018-08-04 05:45] LABS: HEMOGLOBIN 8.5 g/dL (12.0-16.0); MEAN CELL VOLUME 78.4 fl (80.0-105.0); MEAN CORPUSCULAR HEMOGLOBIN 24.1 pg (25.0-35.0); MEAN CORPUSCULAR HGB CONC 30.8 g/dl (31.0-37.0); MEAN PLATELET VOLUME 9.8 fl (7.0-11.0); RBC 3.52 10^6/uL (3.5-6.1); RED CELL DISTRIBUTION WIDTH 15.2 % (11.5-14.5); WHITE BLOOD COUNT 14.6 10^3/ul (4.5-11.0)
[2018-08-04 05:57] LABS: IRON 18 ug/dL (45-180)
[2018-08-04 06:06] LABS: ALBUMIN 3.4 g/dL (3.0-4.8); ALT/SGPT 29 U/L (7-56); AST/SGOT 29 U/L (14-36); BLOOD UREA NITROGEN 19 mg/dL (7-21); CALCIUM 8.8 mg/dL (8.4-10.5); GFR NON-AFRICAN AMERICAN 58; HDL CHOLESTEROL 45 mg/dL (29-60)
[2018-08-04 06:09] LABS: % IRON SATURATION 5 % (20-55); TOTAL IRON BINDING CAPACITY 355 ug/dL (265-497)
[2018-08-04 06:12] LABS: LDL CHOLESTEROL 64 mg/dL (0-129)
[2018-08-04] MEDS: Insulin Reg-MEDIUM-Coverage SC SCH ×4 (08:57→22:31)
[2018-08-04] MEDS ORDERED: Pantoprazole 40 mg EC Tab PO SCH (10:00)
[2018-08-04] MEDS: Magnesium Oxide 400 mg Tab UD PO SCH ×2 (10:41→17:28)
[2018-08-04] MEDS: Linezolid 600 mg in D5W 300 ml 600 MG/300 ML BAG IVPB SCH ×2 (10:42→23:50)
[2018-08-04] MEDS: MethylPREDNISolone 40 mg Vial IVP SCH (10:42)
--- NOTE | 2018-08-04 10:56 | PN ---
DATE: 08/04/2018 [employer]EE[employer]PER[employer] NOTE LOCATION: At [facility]. SUBJECTIVE: The patient is awake and alert, states that she feels pretty good this morning. She is able to swallow without choking. Did have some water earlier and swallowed okay. The patient has no more hematemesis and is scheduled for ENT to evaluate the epiglottal swelling and swelling of right side of her neck. Note that no fever, chills. No nausea or vomiting. No diarrhea. No abdominal pain or chest pain. No shortness of breath. PHYSICAL EXAMINATION: VITAL SIGNS: Physical exam reveals temperature of 98.2, pulse of 79, respirations of 21, BP is 140/88, 98% O2 saturation on room air. HEENT: Head is atraumatic, normocephalic. Eyes reactive to light. Ears, nose and throat note that there is some swelling in the back of the throat. NECK: Supple. No JVD, but there is some swelling on the right side of the neck as well. LUNGS: Reveal good breath sounds bilaterally. ABDOMEN: Soft. Decreased bowel sounds. GENITALIA AND RECTAL: Deferred. MUSCULOSKELETAL: No joint deformities. EXTREMITIES: Reveal no significant edema. NEUROLOGICAL: She seemed to be grossly intact. LABORATORY DATA: As far as her laboratories are concerned, her white count is 14.6, hemoglobin is 8.5, hematocrit 27.6 with platelets of 353,000. The patient's sodium is 143, potassium 3.7, chloride 113, CO2 of 24 with a BUN of 19, creatinine of 1 and a glucose of 101. IMPRESSION: As far as my impression, this patient presented with hematemesis and noted to have right-sided neck mass and epiglottic swelling, rule out a lesion there or infection in the epiglottic region. The patient also has anemia and has a history of Behcet's disease. She has cardiomyopathy with an ejection fraction of 29% and she is on the heart transplant list. She has a history of congestive heart failure. She has automatic implantable cardioverter-defibrillator, chronic obstructive pulmonary disease as well as diabetes, hypertension. PLAN: As far as our plan, we will continue to monitor closely. The patient is scheduled for ENT evaluation. At this time, there seems to be no upper airway obstruction. The patient has no more hematemesis as well. We will follow her hemoglobin closely. She is to continue to get her spironolactone, her Ativan, is getting aztreonam as antibiotic and the patient is getting Coreg as well as metronidazole and we will continue with Protonix, IV fluids and Solu-Medrol. She is on Zofran p.r.n. and vitamin B12. We will continue to treat aggressively along with the other consultants and the primary care doctor. Herbie Louise MD
--- NOTE | 2018-08-04 11:06 | CP.PCM.PN ---
<Shirley Clark - Last Filed: 08/04/18 11:12> Subjective - Date & Time of Evaluation Date of Evaluation: 08/04/18 Time of Evaluation: 07:00 - Subjective Subjective: PGY5 GI Follow-up Pt seen and examined bedside Denies any abd pain still having trouble swallowing Denies any fever or diaphoresis +Chills ROS: 12 point ROS conducted neg other than above Objective - Vital Signs/Intake and Output Vital Signs (last 24 hours): Temp Pulse Resp BP Pulse Ox 98.2 F 100 H 16 135/76 98 08/03/18 16:43 08/04/18 10:40 08/04/18 09:50 08/04/18 10:40 08/04/18 09:50 Intake and Output: 08/04/18 08/04/18 06:59 18:59 Intake Total 600 Output Total 400 Balance 200 - Medications Medications: Current Medications Benzocaine/Menthol (Cepacol Sore Throat) 1 nicol MT Q2H PRN PRN Reason: Sore Throat Carvedilol (Coreg) 25 mg PO BID [facility] Last Admin: 08/04/18 10:40 Dose: 25 mg Cyanocobalamin (Vitamin B12 1000 Mcg/Ml Inj) 1,000 mcg IM DAILY [facility] Last Admin: 08/04/18 10:42 Dose: 1,000 mcg Sodium Chloride (Sodium Chloride 0.9%) 1,000 mls @ 50 mls/hr IV .Q20H [facility] Last Admin: 08/03/18 21:40 Dose: 50 mls/hr Aztreonam (Azactam 1 Gm) 100 mls @ 100 mls/hr IVPB Q8 [facility]; Protocol Stop: 08/11/18 14:01 Linezolid (Zyvox 600mg/300ml D5w) 600 mg in 300 mls @ 200 mls/hr IVPB Q12 [facility]; Protocol Stop: 08/11/18 10:01 Last Admin: 08/04/18 10:42 Dose: 200 mls/hr Metronidazole (Flagyl) 500 mg in 100 mls @ 100 mls/hr IVPB Q8 [facility]; Protocol Insulin Human Regular (Humulin R Med) 0 units SC ACHS [facility]; Protocol Last Admin: 08/04/18 08:57 Dose: Not Given Lorazepam (Ativan) 0.5 mg IVP Q6H PRN; Protocol PRN Reason: Anxiety Last Admin: 08/03/18 20:00 Dose: 0.5 mg Magnesium Oxide (Mag-Ox) 400 mg PO BID [facility] Last Admin: 08/04/18 10:41 Dose: 400 mg Methylprednisolone (Solu-Medrol) 40 mg IVP DAILY [facility] Last Admin: 08/04/18 10:42 Dose: 40 mg Ondansetron HCl (Zofran Inj) 4 mg IVP Q4H PRN PRN Reason: Nausea/Vomiting Last Admin: 08/03/18 20:30 Dose: 4 mg Pantoprazole Sodium (Protonix Inj) 40 mg IVP BID [facility] Last Admin: 08/04/18 10:41 Dose: 40 mg Sacubitril/Valsartan (Entresto 97 Mg-103 Mg Tablet) 1 each PO BID [facility] Spironolactone (Aldactone) 25 mg PO BID [facility] Last Admin: 08/04/18 10:40 Dose: 25 mg - Labs Labs: 08/04/18 05:00 08/04/18 05:00 PT 10.5 SECONDS (9.4-12.5) 08/02/18 18:20 INR 0.92 08/02/18 18:20 APTT 32.2 Seconds (25.1-36.5) 08/02/18 18:20 - Constitutional Appears: Well, No Acute Distress - Head Exam Head Exam: ATRAUMATIC, NORMOCEPHALIC - Eye Exam Eye Exam: Normal appearance - ENT Exam ENT Exam: Mucous Membranes Moist, Normal Exam - Neck Exam Neck Exam: Lymphadenopathy, Tenderness - Respiratory Exam Respiratory Exam: Clear to Ausculation Bilateral, NORMAL BREATHING PATTERN. absent: Prolonged Expiratory Phase, Rales, Rhonchi - Cardiovascular Exam Cardiovascular Exam: REGULAR RHYTHM, +S1, +S2 - GI/Abdominal Exam GI & Abdominal Exam: Soft, Normal Bowel Sounds. absent: Firm, Guarding, Rigid, Tenderness, Mass, Organomegaly - Extremities Exam Extremities Exam: absent: Joint Swelling, Pedal Edema - Neurological Exam Neurological Exam: Alert, Awake, Oriented x3 - Psychiatric Exam Psychiatric exam: Normal Affect, Normal Mood - Skin Skin Exam: Dry, Intact, Normal Color, Warm Assessment and Plan - Assessment and Plan (Free Text) Assessment: Pauline Martinez is 53 F w/ hx of Behcet's, CHD EF~16 s/p AICD, DM, HTN who presented to the ER with hematemsis and trouble swallowing Hematemesis? Microcytic Anemia Left Aryepiglotic thickening, infectous vs malignancy ?hx Behcet's Systolic CHF s/p AICD COPD DM2 HTN - Continue to monitor H/H -Keep hgb > 8 - Significant blood loss of 200mL reported in ED - No prior hx of EGD or upper GI evaluation - Once patient stabilized consider endoscopic evaluation - CHF management per Cardio - ENT consulted - ID on board, started on Aztreonam and linezolid D/W Dr. Adams <Angie,Clau V - Last Filed: 08/04/18 18:03> Objective - Vital Signs/Intake and Output Vital Signs (last 24 hours): Temp Pulse Resp BP Pulse Ox 98.2 F 70 20 141/79 99 08/03/18 16:43 08/04/18 17:29 08/04/18 12:10 08/04/18 17:29 08/04/18 12:10 Intake and Output: 08/04/18 08/04/18 06:59 18:59 Intake Total 600 Output Total 400 Balance 200 - Medications Medications: Current Medications Benzocaine/Menthol (Cepacol Sore Throat) 1 nicol MT Q2H PRN PRN Reason: Sore Throat Last Admin: 08/04/18 17:33 Dose: 1 nicol Carvedilol (Coreg) 25 mg PO BID [facility] Last Admin: 08/04/18 17:29 Dose: 25 mg Al Hydrox/Mg Hydrox/Simethicone 30 ml/Diphenhydramine HCl 75 mg/Lidocaine 30 ml 0 ml PO Q2H PRN PRN Reason: Mouth/Throat Pain Cyanocobalamin (Vitamin B12 1000 Mcg/Ml Inj) 1,000 mcg IM DAILY [facility] Last Admin: 08/04/18 10:42 Dose: 1,000 mcg Sodium Chloride (Sodium Chloride 0.9%) 1,000 mls @ 50 mls/hr IV .Q20H [facility] Last Admin: 08/04/18 17:31 Dose: 50 mls/hr Aztreonam (Azactam 1 Gm) 100 mls @ 100 mls/hr IVPB Q8 [facility]; Protocol Stop: 08/11/18 14:01 Last Admin: 08/04/18 13:40 Dose: 100 mls/hr Linezolid (Zyvox 600mg/300ml D5w) 600 mg in 300 mls @ 200 mls/hr IVPB Q12 [facility]; Protocol Stop: 08/11/18 10:01 Last Admin: 08/04/18 10:42 Dose: 200 mls/hr Metronidazole (Flagyl) 500 mg in 100 mls @ 100 mls/hr IVPB Q8 [facility]; Protocol Last Admin: 08/04/18 13:42 Dose: 100 mls/hr Insulin Human Regular (Humulin R Med) 0 units SC ACHS [facility]; Protocol Last Admin: 08/04/18 17:31 Dose: Not Given Lorazepam (Ativan) 0.5 mg IVP Q6H PRN; Protocol PRN Reason: Anxiety Last Admin: 08/03/18 20:00 Dose: 0.5 mg Magnesium Oxide (Mag-Ox) 400 mg PO BID [facility] Last Admin: 08/04/18 17:28 Dose: 400 mg Methylprednisolone (Solu-Medrol) 40 mg IVP DAILY [facility] Last Admin: 08/04/18 10:42 Dose: 40 mg Ondansetron HCl (Zofran Inj) 4 mg IVP Q4H PRN PRN Reason: Nausea/Vomiting Last Admin: 08/03/18 20:30 Dose: 4 mg Pantoprazole Sodium (Protonix Inj) 40 mg IVP BID [facility] Last Admin: 08/04/18 17:29 Dose: 40 mg Sacubitril/Valsartan (Entresto 97 Mg-103 Mg Tablet) 1 each PO BID [facility] Last Admin: 08/04/18 17:30 Dose: 1 each Spironolactone (Aldactone) 25 mg PO BID [facility] Last Admin: 08/04/18 17:28 Dose: 25 mg - Labs Labs: 08/04/18 05:00 08/04/18 05:00 PT 10.5 SECONDS (9.4-12.5) 08/02/18 18:20 INR 0.92 08/02/18 18:20 APTT 32.2 Seconds (25.1-36.5) 08/02/18 18:20 Attending/Attestation - Attestation I have personally seen and examined this patient.: Yes I have fully participated in the care of the patient.: Yes I have reviewed all pertinent clinical information, including history, physical exam and plan: Yes Notes (Text): This is an addendum to GI progress report dictated by the GI Fellow.The patient was seen and examined earlier. Medical records, lab studies, imagings were reviewed. Last 24 hours events reviewed. Agreed with the above treatment plan as outlined in GI Fellow 's notes with the addition of the following Patient still complains of odynophagia of throat pain Awaiting for ENT eval ID consult reviewed and appreciated Acute epiglottitis On antibiotics coverage Behcet's disease History of mouth ulcers On steroids CHF status post AICD DM would recommend continue clear liquid diet PPI followup hemoglobin ENT evaluation Discussed with spool carrier Dr. Louise 08/04/18 17:58
[2018-08-04] MEDS: SACUBITRIL 97mg/ VALSARTAN 103mg tab PO SCH ×2 (11:40→17:30)
--- NOTE | 2018-08-04 11:47 | CP.PCM.CON ---
History of Present Illness - History of Present Illness History of Present Illness: 53 year old female with PMH of CHF with end-stage cardiomyopathy s/p AICD placment, history of Serratia bacteremia due to PICC line infection S/P removal, history of Klebsiella bacteremia from UTI (2015), history of Methicillin-sensitive Staph aureus bacteremia, persistent from infected tunneled catheter infection in the right anterior chest wall S/P removal (2015), CHF with end-stage cardiomyopathy, Coronary artery disease, DM, S/P AICD placement came in to [facility] complaining of nausea, vomiting and hematemesis since yesterday, associated with some throat pain and difficulty speaking. She denies fever or chills, denies eating anything out of the ordinary, denies headache or dizziness, no chest pain, no SOB, no abdominal pain, no chest pain, no difficulty swallowing, no diarrhea, no dysuria. She denies animal contacts or travel out of [place] in the past month. CT neck is suggestive of inflammation of the epiglottis. Infectious Diseases consult is requested to further evaluate and manage. Review of Systems - Review of Systems All systems: reviewed and no additional remarkable complaints except (as per HPI) Past Patient History - Infectious Disease Hx of Infectious Diseases: None - Tetanus Immunizations Tetanus Immunization: Unknown - Past Social History Smoking Status: Never Smoked - CARDIAC Hx Cardiac Disorders: Yes Hx Cardia Arrhythmia: Yes Hx Congestive Heart Failure: Yes Hx Hypertension: Yes Hx Internal Defibrillator: Yes (2010) Hx Pacemaker: Yes Other/Comment: waiting list for heart transplant - PULMONARY Hx Respiratory Disorders: No - NEUROLOGICAL Hx Neurological Disorder: Yes HX Cerebrovascular Accident: Yes - HEENT Hx HEENT Problems: Yes (Wears glasses.) - RENAL Hx Chronic Kidney Disease: No - ENDOCRINE/METABOLIC Hx Endocrine Disorders: No - HEMATOLOGICAL/ONCOLOGICAL Hx Blood Disorders: Yes Hx Anemia: Yes (with blood transfusion) - INTEGUMENTARY Hx Dermatological Problems: No - MUSCULOSKELETAL/RHEUMATOLOGICAL Hx Falls: No - GASTROINTESTINAL Hx Gastrointestinal Disorders: Yes Hx Gastroesophageal Reflux: Yes - GENITOURINARY/GYNECOLOGICAL Hx Genitourinary Disorders: No - PSYCHIATRIC Hx Psychophysiologic Disorder: Yes Hx Anxiety: Yes Hx Substance Use: No - SURGICAL HISTORY Hx Cardiac Catheterization: Yes Other/Comment: defibrillator 2010 - ANESTHESIA Hx Anesthesia: Yes Hx Anesthesia Reactions: No Hx Malignant Hyperthermia: No Meds Allergies/Adverse Reactions: Allergies Allergy/AdvReac Type Severity Reaction Status Date / Time acetaminophen Allergy ANGIOEDEMA Verified 05/13/18 12:31 cefepime Allergy ANAPHYLAXIS Verified 05/13/18 12:31 - Medications Medications: Current Medications Benzocaine/Menthol (Cepacol Sore Throat) 1 nicol MT Q2H PRN PRN Reason: Sore Throat Carvedilol (Coreg) 25 mg PO BID [facility] Cyanocobalamin (Vitamin B12 1000 Mcg/Ml Inj) 1,000 mcg IM DAILY [facility] Sodium Chloride (Sodium Chloride 0.9%) 1,000 mls @ 50 mls/hr IV .Q20H [facility] Last Admin: 08/03/18 21:40 Dose: 50 mls/hr Insulin Human Regular (Humulin R Med) 0 units SC ACHS [facility]; Protocol Last Admin: 08/03/18 22:15 Dose: Not Given Lorazepam (Ativan) 0.5 mg IVP Q6H PRN; Protocol PRN Reason: Anxiety Last Admin: 08/03/18 20:00 Dose: 0.5 mg Magnesium Oxide (Mag-Ox) 400 mg PO BID [facility] Methylprednisolone (Solu-Medrol) 40 mg IVP DAILY [facility] Last Admin: 08/03/18 09:44 Dose: 40 mg Ondansetron HCl (Zofran Inj) 4 mg IVP Q4H PRN PRN Reason: Nausea/Vomiting Last Admin: 08/03/18 20:30 Dose: 4 mg Pantoprazole Sodium (Protonix Inj) 40 mg IVP BID [facility] Last Admin: 08/03/18 17:14 Dose: 40 mg Sacubitril/Valsartan (Entresto 97 Mg-103 Mg Tablet) 1 each PO BID [facility] Spironolactone (Aldactone) 25 mg PO BID [facility] Physical Exam - Constitutional Appears: No Acute Distress, Chronically Ill - Head Exam Head Exam: NORMAL INSPECTION - ENT Exam ENT Exam: Mucous Membranes Moist - Neck Exam Neck exam: Negative for: Meningismus - Respiratory Exam Respiratory Exam: Decreased Breath Sounds. absent: Rales - Cardiovascular Exam Cardiovascular Exam: +S1, +S2 - GI/Abdominal Exam GI & Abdominal Exam: Soft. absent: Tenderness Results - Vital Signs Recent Vital Signs: Last Vital Signs Temp 98.2 F 08/03/18 16:43 Pulse 71 08/03/18 23:50 Resp 16 08/03/18 23:50 BP 152/87 H 08/03/18 23:00 Pulse Ox 97 08/03/18 23:50 - Labs Result Diagrams: 08/04/18 05:00 08/04/18 05:00 Labs: Laboratory Results - last 24 hr 08/03/18 08/03/18 08/03/18 06:50 06:50 08:24 WBC RBC Hgb Hct MCV MCH MCHC RDW Plt Count MPV Gran % Lymph % (Auto) Love % (Auto) Eos % (Auto) Baso % (Auto) Gran # Lymph # (Auto) Love # (Auto) Eos # (Auto) Baso # (Auto) Sodium Potassium Chloride Carbon Dioxide Anion Gap BUN Creatinine Est GFR ( Amer) Est GFR (Non-Af Amer) POC Glucose (mg/dL) 127 H Random Glucose Calcium Phosphorus Magnesium Iron TIBC % Saturation Total Bilirubin AST ALT Alkaline Phosphatase C-React Prot High Sens > 15.00 H Total Protein Albumin Globulin Albumin/Globulin Ratio Triglycerides Cholesterol LDL Cholesterol Direct HDL Cholesterol Blood Type O POSITIVE Antibody Screen Positive Antibody Identification Non Specific Antibody BBK History Checked Patient has bt 08/03/18 08/03/18 08/03/18 11:09 12:03 16:21 WBC 17.3 H RBC 3.93 Hgb 9.6 L Hct 31.0 L MCV 78.9 L MCH 24.4 L MCHC 31.0 RDW 15.0 H Plt Count 378 MPV 9.5 Gran % 93.3 H Lymph % (Auto) 4.0 L Love % (Auto) 2.7 Eos % (Auto) 0.0 L Baso % (Auto) 0.0 Gran # 16.14 H Lymph # (Auto) 0.7 L Love # (Auto) 0.5 Eos # (Auto) 0.0 Baso # (Auto) 0.00 Sodium Potassium Chloride Carbon Dioxide Anion Gap BUN Creatinine Est GFR ( Amer) Est GFR (Non-Af Amer) POC Glucose (mg/dL) 103 117 H Random Glucose Calcium Phosphorus Magnesium Iron TIBC % Saturation Total Bilirubin AST ALT Alkaline Phosphatase C-React Prot High Sens Total Protein Albumin Globulin Albumin/Globulin Ratio Triglycerides Cholesterol LDL Cholesterol Direct HDL Cholesterol Blood Type Antibody Screen Antibody Identification BBK History Checked 08/03/18 08/03/18 08/04/18 17:55 23:25 05:00 WBC 17.5 H RBC 3.87 Hgb 9.4 L Hct 30.4 L MCV 78.6 L MCH 24.3 L MCHC 30.9 L RDW 15.3 H Plt Count 368 MPV 9.6 Gran % 93.0 H Lymph % (Auto) 4.5 L Love % (Auto) 2.5 Eos % (Auto) 0.0 L Baso % (Auto) 0.0 Gran # 16.25 H Lymph # (Auto) 0.8 L Love # (Auto) 0.4 Eos # (Auto) 0.0 Baso # (Auto) 0.00 Sodium 143 Potassium 3.7 Chloride 113 H Carbon Dioxide 24 Anion Gap 10 BUN 19 Creatinine 1.0 Est GFR ( Amer) > 60 Est GFR (Non-Af Amer) 58 POC Glucose (mg/dL) 121 H Random Glucose 101 Calcium 8.8 Phosphorus 4.2 Magnesium 2.4 H Iron TIBC % Saturation Total Bilirubin 0.3 AST 29 ALT 29 Alkaline Phosphatase 93 C-React Prot High Sens Total Protein 6.8 Albumin 3.4 Globulin 3.4 Albumin/Globulin Ratio 1.0 L Triglycerides 61 Cholesterol 136 LDL Cholesterol Direct 64 HDL Cholesterol 45 Blood Type Antibody Screen Antibody Identification BBK History Checked 08/04/18 08/04/18 05:00 05:00 WBC 14.6 H RBC 3.52 Hgb 8.5 L Hct 27.6 L MCV 78.4 L MCH 24.1 L MCHC 30.8 L RDW 15.2 H Plt Count 353 MPV 9.8 Gran % Lymph % (Auto) Love % (Auto) Eos % (Auto) Baso % (Auto) Gran # Lymph # (Auto) Love # (Auto) Eos # (Auto) Baso # (Auto) Sodium Potassium Chloride Carbon Dioxide Anion Gap BUN Creatinine Est GFR ( Amer) Est GFR (Non-Af Amer) POC Glucose (mg/dL) Random Glucose Calcium Phosphorus Magnesium Iron 18 L TIBC 355 % Saturation 5 L Total Bilirubin AST ALT Alkaline Phosphatase C-React Prot High Sens Total Protein Albumin Globulin Albumin/Globulin Ratio Triglycerides Cholesterol LDL Cholesterol Direct HDL Cholesterol Blood Type Antibody Screen Antibody Identification BBK History Checked Assessment & Plan - Assessment and Plan (Free Text) Plan: Assessment systemic inflammatory response syndrome, R/O sepsis due to acute epiglottitis history of sepsis due to Klebsiella bacteremia in patient who had a port-a-cath new onset acute renal failure, improving history of sepsis due to right sided healthcare-associated pneumonia (07/2017) history of sepsis due to Serratia bacteremia probably PICC-line related S/P removal of the PICC line - blood cx are now clear since line removal - PICC line has been replaced last month (2016) history of Klebsiella bacteremia from UTI (2015) history of Methicillin-sensitive Staph aureus bacteremia, persistent from infected tunneled catheter infection in the right anterior chest wall S/P removal (2015) CHF with end-stage cardiomyopathy Coronary artery disease DM S/P AICD placement Plan started Zyvox, Azactam and Flagyl pending blood, ENT evaluation and recommendations will monitor clinically
[2018-08-04] MEDS: Aztreonam 1 Gm in NS 100mL 100 ML IVPB SCH ×2 (13:40→22:20)
[2018-08-04] MEDS: metroNIDAZOLE IV 500 mg/100 ml 500 MG/100 ML BAG IVPB SCH ×2 (13:42→23:00)
[2018-08-04] MEDS: Benzocaine/Menthol (Cepacol) Lozenge MT PRN ×3 (13:44→20:10)
[2018-08-04 14:28] LABS: FOLATE 10.9 ng/mL
[2018-08-04] MEDS ORDERED: Aluminum Hydroxide/Magnesium 30 ML, DiphenhydrAMINE 75 MG, Lidocaine 2% Viscous 30 ML PO PRN (16:51)
[2018-08-04] MEDS: Sodium Chloride 0.9% 1,000 ML IV SCH (17:31)
--- NOTE | 2018-08-05 02:15 | CON ---
DATE: 08/04/2018 HISTORY OF PRESENT ILLNESS: This is a 53-year-old female, well known to me from previous admission, known history of Behcet's disease, has been on steroids for many years, diabetes, hypertension, cardiomyopathy, I believe has AICD, history of stroke. Seen at [facility] with the [facility]. Came in to emergency room with hemoptysis, sore throat. CT of the chest was unremarkable, but CT of the neck shows right-sided of the neck thickening lead aryepiglottic fold extended into the midline and possibly right glottis suspicious for infectious or inflammatory cause. Neoplasm cannot be excluded. Already seen by Infectious Diseases. Waiting for ENT for a panendoscopy, also seen by GI. At present, complaining about sore throat. Unable to eat and swallow. No more hemoptysis. No nausea. No vomiting, diarrhea, leg pain or leg swelling. PAST MEDICAL HISTORY: Diabetes, hypertension, cardiomyopathy, chronic lung disease, has a pacemaker, history of stroke, Behcet's disease, history of steroid use. ALLERGIES: ALLERGY TO SEAFOOD, ANAPHYLAXIS; ALSO TYLENOL CAUSING ANAPHYLAXIS. SOCIAL HISTORY: Denies smoking or alcohol use. FAMILY HISTORY: No significant lung disease. Has a history of RI in the family. MEDICATIONS: She is on Aldactone 25 mg twice a day, lorazepam 0.5 mg every 6 hours p.r.n., Azactam 1 g IV every 8 hours, Cepacol lozenges every 2 hours p.r.n., Coreg 25 mg twice a day, she is on Entresto 1 tab twice a day, Flagyl 500 mg every 8 hours, insulin coverage, mag oxide 400 mg twice a day, Protonix 40 mg twice a day, IV fluid normal saline 50 mL/hour, Solu-Medrol 40 mg IV one dose daily given, vitamin B12 at 1000 mcg IM daily, Zofran p.r.n., Zyvox 600 mg every 12 hours. REVIEW OF SYSTEMS: No headache. No rhinitis. Sore throat, especially on the right side with difficulty swallowing. No chest pain, headache. Hemoptysis, which stopped. No nausea. No abdominal pain. No leg pain. No leg swelling. Did lose some weight from the last couple of months. PHYSICAL EXAMINATION: GENERAL: In no acute distress. VITAL SIGNS: Temperature is 98, heart rate is 75, respiratory rate is 20, blood pressure 141/79, pulse ox 98% on nasal cannula. HEENT: Moist mucous membrane. Crowded airway. NECK: Supple. Right submandibular area is swollen, tender to touch. LUNGS: Have a fair airflow. HEART: S1 and S2. ABDOMEN: Soft, nontender. No organomegaly. EXTREMITIES: No edema. NEUROLOGICAL: Awake and alert. Follows simple command. LABORATORY DATA: Shows hemoglobin 8.5, hematocrit 27.6, WBC 14.6, platelet is 353. D-dimer was 396. INR 0.92. Has a VBG done on admission shows pH 7.41, pCO2 of 37, O2 of 111. Sodium 143, potassium 3.7, chloride 113, bicarbonate 24, BUN 19, creatinine 1, glucose 93, calcium 8.8, phosphorus 4.2, magnesium 2.4, iron is 18, AST 29, ALT 29, alk phos is 93, albumin is 3.4. Vitamin B12 of 562, folate is 10.9. Urine culture has some gram-positive cocci. Blood culture has been negative. Nares MRSA nondetected. IMPRESSION AND PLAN: Right glottal suspicious for infection, inflammatory process. Rule out abscess. Rule out tumor or ulcer. History of cardiomyopathy, nonischemic; has automatic implantable cardioverter-defibrillator, chronic lung disease, diabetes, status post hemoptysis. Agree with Dr. Armstrong with the present management. She is started on broad-spectrum antibiotics because of her immune status covering healthcare-associated organisms. Also added Magic Mouthwash swish and swallow before meals. Waiting for ENT for panendoscopy. Gastric prophylaxis. Deep venous thrombosis prophylaxis. Continue steroids for now. We will get cortisol level in the morning. Followup plans in the morning. Thank you and we will follow with you. Cruz Teran MD
--- NOTE | 2018-08-05 05:23 | PN ---
DATE: 08/04/2018 SUBJECTIVE: The patient was seen and examined on the bedside, looking comfortable, still in the unit. She drank by herself water. There was no chocking, but still I called swallowing evaluation. Waiting for ENT evaluation. Still has swelling of the right side of the face, but no hematemesis. Back swelling is decreasing. No fever. No chills. No abdominal pain. No chest pain. No hematuria. No hematochezia. PHYSICAL EXAMINATION: VITAL SIGNS: Temperature 98.2, pulse 79, respiratory rate 20, blood pressure 140/88. HEENT: Head normocephalic, atraumatic. Eyes: PERRLA. Extraocular muscles intact. Conjunctivae clear. Nose patent. NECK: Supple. No carotid bruit. No JVD or thyromegaly. There is mild swelling on the right side of the neck. LUNGS: Reveal good air entry. ABDOMEN: Soft. Bowel sounds positive. EXTREMITIES: No edema. No cyanosis. NEUROLOGICAL: The patient is awake and alert. Follows simple commands. LABORATORY DATA: White blood cells 14.6, hemoglobin 8.7, hematocrit 27.6, platelets 353,000. Sodium 143, potassium 3.7, BUN 19, creatinine 1, glucose 101. ASSESSMENT AND PLAN: Ms. Pauline Martinez, 53-year-old lady, came with hematemesis, right-sided neck swelling and epiglottis swelling, rule out a lesion. There is an infection in the epiglottis region or just inflammation. The patient has history of anemia, Behcet's disease, cardiomyopathy, ejection fraction 29%. She has been on a heart transplant list in [facility]. History of congestive heart failure, automatic implantable cardioverter-defibrillator, chronic obstructive lung disease, hypertension, steroid requiring rheumatic problem. We are monitoring the patient very closely. Waiting for ENT, swallowing evaluation. No more hematemesis. We are monitoring hemoglobin. Getting aztreonam antibiotics. Metronidazole as well. Getting IV fluid, Solu-Medrol, Zofran p.r.n. No more nauseousness. Appreciated Dr. Childers's input and Dr. Adams and Dr. Herbie Louise's input. Maybe the patient has systemic inflammatory response syndrome, rule out sepsis due to acute epiglottitis. The patient has multiple times history of sepsis with Port-A-Cath. Started Zyvox, Azactam and Flagyl depending on the blood cultures. We will follow up. Carisa Armstrong MD
[2018-08-05] MEDS: Aztreonam 1 Gm in NS 100mL 100 ML IVPB SCH ×3 (05:50→21:25)
[2018-08-05 06:17] LABS: HEMOGLOBIN 8.5 g/dL (12.0-16.0); MEAN CELL VOLUME 78.7 fl (80.0-105.0); MEAN CORPUSCULAR HEMOGLOBIN 23.9 pg (25.0-35.0); MEAN CORPUSCULAR HGB CONC 30.4 g/dl (31.0-37.0); MEAN PLATELET VOLUME 9.7 fl (7.0-11.0); RBC 3.56 10^6/uL (3.5-6.1); RED CELL DISTRIBUTION WIDTH 15.2 % (11.5-14.5); WHITE BLOOD COUNT 10.2 10^3/ul (4.5-11.0)
[2018-08-05] MEDS: metroNIDAZOLE IV 500 mg/100 ml 500 MG/100 ML BAG IVPB SCH ×3 (06:27→21:25)
[2018-08-05 07:09] LABS: ALBUMIN 3.3 g/dL (3.0-4.8); ALT/SGPT 34 U/L (7-56); AST/SGOT 23 U/L (14-36); BLOOD UREA NITROGEN 19 mg/dL (7-21); CALCIUM 8.2 mg/dL (8.4-10.5); GFR NON-AFRICAN AMERICAN > 60
[2018-08-05] MEDS: Insulin Reg-MEDIUM-Coverage SC SCH ×4 (08:34→21:35)
--- NOTE | 2018-08-05 09:16 | PN ---
DATE: 08/05/2018 ESTIMATING MANAGER NOTE SUBJECTIVE: The patient is resting in bed, fairly comfortable but states that she continues to have a sore throat and it is difficult to swallow. She states that she is able to get down liquids and she can take her pills if they are crushed but not able to swallow solid food. She also states that ENT is yet to evaluate her. No cough. No congestion. No wheezing, no shortness of breath. No fever, chills or nausea or vomiting. PHYSICAL EXAMINATION: VITAL SIGNS: Note that her temperature is 98.3, her pulse is 71, respirations are 19 and BP is 135/85. SKIN: Warm and dry. HEENT: Head atraumatic, normocephalic. Eyes reactive to light. Ears, nose and throat seemed to be within normal limits. NECK: Supple, but there is swelling on the right side of the neck and seems to be of the lower part of the right jaw. LUNGS: Reveal good breath sounds bilaterally. HEART: Has regular rate and rhythm. Normal S1, S2. ABDOMEN: Soft. Decreased bowel sounds. GENITALIA: Deferred. RECTAL: Deferred. MUSCULOSKELETAL: No joint deformities. EXTREMITIES: Reveal no significant lower extremity edema. NEUROLOGICALLY: She seemed to be grossly intact. LABORATORY DATA: As far as her laboratories are concerned, her white count is 10.2, hemoglobin is 8.5, hematocrit 28 with platelets of 360,000. Her sodium is 141, potassium 3.6, chloride 111, CO2 of 25 with a BUN of 19, creatinine of 0.9 and a glucose of 94. IMPRESSION: The patient initially presented with hematemesis and right-sided neck swelling or mass and epiglottic swelling. Rule out a lesion or infection in the epiglottic region. 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 She has cardiomyopathy with a poor ejection fraction of about 29% and is on the heart transplant list. The patient has a history of congestive heart failure and an automatic implantable cardioverter-defibrillator as well as chronic obstructive pulmonary disease, diabetes and hypertension. PLAN: We will continue to monitor closely. The patient is scheduled to be evaluated by ENT. She is getting only liquids p.o. at this time. There seemed to be no upper airway obstruction and no more hematemesis. We will follow the hemoglobin closely and she is getting spironolactone, her Ativan, aztreonam, Coreg, metronidazole, Protonix, IV fluids, Solu-Medrol, Zofran and vitamin B12. We will continue to treat aggressively along with the other consultants and the primary care doctor. Herbie Louise MD
[2018-08-05] MEDS: SACUBITRIL 97mg/ VALSARTAN 103mg tab PO SCH ×2 (09:46→17:51)
[2018-08-05] MEDS: Magnesium Oxide 400 mg Tab UD PO SCH ×2 (09:47→17:51)
[2018-08-05] MEDS: MethylPREDNISolone 40 mg Vial IVP SCH (09:47)
[2018-08-05] MEDS: Linezolid 600 mg in D5W 300 ml 600 MG/300 ML BAG IVPB SCH ×2 (09:48→21:25)
[2018-08-05] MEDS: Benzocaine/Menthol (Cepacol) Lozenge MT PRN (10:04)
--- NOTE | 2018-08-05 10:32 | CP.PCM.PN ---
Subjective - Date & Time of Evaluation Date of Evaluation: 08/05/18 Time of Evaluation: 08:55 - Subjective Subjective: Comfortable, no fevers, but still with some pain in the throat, no nausea. Objective - Vital Signs/Intake and Output Vital Signs (last 24 hours): Temp Pulse Resp BP Pulse Ox 98.1 F 77 18 126/64 99 08/05/18 00:00 08/05/18 05:50 08/05/18 05:50 08/05/18 05:00 08/05/18 05:50 Intake and Output: 08/04/18 08/05/18 18:59 06:59 Intake Total 1000 Balance 1000 - Medications Medications: Current Medications Benzocaine/Menthol (Cepacol Sore Throat) 1 nicol MT Q2H PRN PRN Reason: Sore Throat Last Admin: 08/04/18 20:10 Dose: 1 nicol Carvedilol (Coreg) 25 mg PO BID [facility] Last Admin: 08/04/18 17:29 Dose: 25 mg Al Hydrox/Mg Hydrox/Simethicone 30 ml/Diphenhydramine HCl 75 mg/Lidocaine 30 ml 0 ml PO Q2H PRN PRN Reason: Mouth/Throat Pain Cyanocobalamin (Vitamin B12 1000 Mcg/Ml Inj) 1,000 mcg IM DAILY [facility] Last Admin: 08/04/18 10:42 Dose: 1,000 mcg Sodium Chloride (Sodium Chloride 0.9%) 1,000 mls @ 50 mls/hr IV .Q20H [facility] Last Admin: 08/04/18 17:31 Dose: 50 mls/hr Aztreonam (Azactam 1 Gm) 100 mls @ 100 mls/hr IVPB Q8 [facility]; Protocol Stop: 08/11/18 14:01 Last Admin: 08/05/18 05:50 Dose: 100 mls/hr Linezolid (Zyvox 600mg/300ml D5w) 600 mg in 300 mls @ 200 mls/hr IVPB Q12 [facility]; Protocol Stop: 08/11/18 10:01 Last Admin: 08/04/18 23:50 Dose: 200 mls/hr Metronidazole (Flagyl) 500 mg in 100 mls @ 100 mls/hr IVPB Q8 [facility]; Protocol Last Admin: 08/05/18 06:27 Dose: 100 mls/hr Insulin Human Regular (Humulin R Med) 0 units SC ACHS [facility]; Protocol Last Admin: 08/04/18 22:31 Dose: Not Given Lorazepam (Ativan) 0.5 mg IVP Q6H PRN; Protocol PRN Reason: Anxiety Last Admin: 08/04/18 20:07 Dose: 0.5 mg Magnesium Oxide (Mag-Ox) 400 mg PO BID [facility] Last Admin: 08/04/18 17:28 Dose: 400 mg Methylprednisolone (Solu-Medrol) 40 mg IVP DAILY [facility] Last Admin: 08/04/18 10:42 Dose: 40 mg Ondansetron HCl (Zofran Inj) 4 mg IVP Q4H PRN PRN Reason: Nausea/Vomiting Last Admin: 08/03/18 20:30 Dose: 4 mg Pantoprazole Sodium (Protonix Inj) 40 mg IVP BID [facility] Last Admin: 08/04/18 17:29 Dose: 40 mg Sacubitril/Valsartan (Entresto 97 Mg-103 Mg Tablet) 1 each PO BID [facility] Last Admin: 08/04/18 17:30 Dose: 1 each Spironolactone (Aldactone) 25 mg PO BID [facility] Last Admin: 08/04/18 17:28 Dose: 25 mg - Labs Labs: 08/05/18 05:00 08/04/18 05:00 PT 10.5 SECONDS (9.4-12.5) 08/02/18 18:20 INR 0.92 08/02/18 18:20 APTT 32.2 Seconds (25.1-36.5) 08/02/18 18:20 - Constitutional Appears: No Acute Distress, Chronically Ill - Head Exam Head Exam: NORMAL INSPECTION - Respiratory Exam Respiratory Exam: Decreased Breath Sounds - Cardiovascular Exam Cardiovascular Exam: +S1, +S2 - GI/Abdominal Exam GI & Abdominal Exam: Soft. absent: Tenderness Assessment and Plan - Assessment and Plan (Free Text) Plan: Assessment systemic inflammatory response syndrome, R/O sepsis due to acute epiglottitis, R/O epiglottic mass history of sepsis due to Klebsiella bacteremia in patient who had a port-a-cath new onset acute renal failure, improving history of sepsis due to right sided healthcare-associated pneumonia (07/2017) history of sepsis due to Serratia bacteremia probably PICC-line related S/P removal of the PICC line - blood cx are now clear since line removal - PICC line has been replaced last month (2016) history of Klebsiella bacteremia from UTI (2015) history of Methicillin-sensitive Staph aureus bacteremia, 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
[2018-08-05] MEDS: Sodium Chloride 0.9% 1,000 ML IV SCH (12:50)
[2018-08-05] MEDS: Aluminum Hydroxide/Magnesium 30 ML, DiphenhydrAMINE 75 MG, Lidocaine 2% Viscous 30 ML PO SCH ×2 (13:13→17:52)
--- NOTE | 2018-08-05 14:00 | CP.PCM.PN ---
<Shirley Clark - Last Filed: 08/05/18 14:02> Subjective - Date & Time of Evaluation Date of Evaluation: 08/05/18 Time of Evaluation: 08:00 - Subjective Subjective: PGY5 GI Follow-up Pt seen and examined bedside Able to tolerate liquid diet. Waiting on ENT note Denies any fever, chill or diaphoresis ROS: 12 point ROS conducted neg other than above Objective - Vital Signs/Intake and Output Vital Signs (last 24 hours): Temp Pulse Resp BP Pulse Ox 98.5 F 70 18 152/99 H 100 08/05/18 12:00 08/05/18 12:00 08/05/18 12:00 08/05/18 12:00 08/05/18 10:40 Intake and Output: 08/05/18 08/05/18 06:59 18:59 Intake Total 2113 Output Total 800 Balance 1313 - Medications Medications: Current Medications Benzocaine/Menthol (Cepacol Sore Throat) 1 nicol MT Q2H PRN PRN Reason: Sore Throat Last Admin: 08/05/18 10:04 Dose: 1 nicol Carvedilol (Coreg) 25 mg PO BID [facility] Last Admin: 08/05/18 09:44 Dose: 25 mg Al Hydrox/Mg Hydrox/Simethicone 30 ml/Diphenhydramine HCl 75 mg/Lidocaine 30 ml 0 ml PO AC [facility] Last Admin: 08/05/18 13:13 Dose: 15 ml Cyanocobalamin (Vitamin B12 1000 Mcg/Ml Inj) 1,000 mcg IM DAILY [facility] Last Admin: 08/05/18 09:47 Dose: 1,000 mcg Sodium Chloride (Sodium Chloride 0.9%) 1,000 mls @ 50 mls/hr IV .Q20H [facility] Last Admin: 08/05/18 12:50 Dose: Not Given Aztreonam (Azactam 1 Gm) 100 mls @ 100 mls/hr IVPB Q8 [facility]; Protocol Stop: 08/11/18 14:01 Last Admin: 08/05/18 13:13 Dose: 100 mls/hr Linezolid (Zyvox 600mg/300ml D5w) 600 mg in 300 mls @ 200 mls/hr IVPB Q12 [facility]; Protocol Stop: 08/11/18 10:01 Last Admin: 08/05/18 09:48 Dose: 200 mls/hr Metronidazole (Flagyl) 500 mg in 100 mls @ 100 mls/hr IVPB Q8 [facility]; Protocol Last Admin: 08/05/18 06:27 Dose: 100 mls/hr Insulin Human Regular (Humulin R Med) 0 units SC ACHS [facility]; Protocol Last Admin: 08/05/18 11:45 Dose: Not Given Lorazepam (Ativan) 0.5 mg IVP Q6H PRN; Protocol PRN Reason: Anxiety Last Admin: 08/04/18 20:07 Dose: 0.5 mg Magnesium Oxide (Mag-Ox) 400 mg PO BID [facility] Last Admin: 08/05/18 09:47 Dose: 400 mg Methylprednisolone (Solu-Medrol) 40 mg IVP DAILY [facility] Last Admin: 08/05/18 09:47 Dose: 40 mg Ondansetron HCl (Zofran Inj) 4 mg IVP Q4H PRN PRN Reason: Nausea/Vomiting Last Admin: 08/03/18 20:30 Dose: 4 mg Pantoprazole Sodium (Protonix Inj) 40 mg IVP BID [facility] Last Admin: 08/05/18 09:47 Dose: 40 mg Sacubitril/Valsartan (Entresto 97 Mg-103 Mg Tablet) 1 each PO BID [facility] Last Admin: 08/05/18 09:46 Dose: 1 each Spironolactone (Aldactone) 25 mg PO BID [facility] Last Admin: 08/05/18 09:44 Dose: 25 mg - Labs Labs: 08/05/18 05:00 08/05/18 05:00 PT 10.5 SECONDS (9.4-12.5) 08/02/18 18:20 INR 0.92 08/02/18 18:20 APTT 32.2 Seconds (25.1-36.5) 08/02/18 18:20 - Constitutional Appears: Well, No Acute Distress - Head Exam Head Exam: ATRAUMATIC, NORMOCEPHALIC - Eye Exam Eye Exam: Normal appearance - ENT Exam ENT Exam: Mucous Membranes Moist, Normal Exam - Neck Exam Neck Exam: Tenderness - Respiratory Exam Respiratory Exam: Clear to Ausculation Bilateral, NORMAL BREATHING PATTERN. absent: Rales, Rhonchi, Wheezes, Respiratory Distress - Cardiovascular Exam Cardiovascular Exam: REGULAR RHYTHM, +S1, +S2 - GI/Abdominal Exam GI & Abdominal Exam: Soft, Normal Bowel Sounds. absent: Distended, Firm, Guarding, Rigid, Tenderness, Mass, Organomegaly, Rebound - Extremities Exam Extremities Exam: absent: Joint Swelling, Pedal Edema - Neurological Exam Neurological Exam: Alert, Awake, Oriented x3 - Psychiatric Exam Psychiatric exam: Normal Affect, Normal Mood - Skin Skin Exam: Dry, Intact, Normal Color, Warm Assessment and Plan - Assessment and Plan (Free Text) Assessment: Pauline Martinez is 53 F w/ hx of Behcet's, CHD EF~16 s/p AICD, DM, HTN who presented to the ER with hematemsis and trouble swallowing Hematemesis? Microcytic Anemia Acute epiglytotis, etiology unknown [place] hx Behcet's Systolic CHF s/p AICD COPD DM2 HTN - Continue to monitor H/H -Keep hgb > 8 - hgb stable - no reports of hematemsis or coffeeground emesis - continue abx as per ID - s/p laryngoscopy by ENT, awaiting report, as per pt, no airway obstruction - no plan for EGD at this time D/W Dr. Adams <Clau Adams V - Last Filed: 08/05/18 23:11> Objective - Vital Signs/Intake and Output Vital Signs (last 24 hours): Temp Pulse Resp BP Pulse Ox 98.9 F 69 16 147/91 H 100 08/05/18 22:34 08/05/18 22:34 08/05/18 22:34 08/05/18 22:34 08/05/18 22:34 Intake and Output: 08/05/18 08/06/18 18:59 06:59 Intake Total 360 Output Total 700 Balance -340 - Medications Medications: Current Medications Benzocaine/Menthol (Cepacol Sore Throat) 1 nicol MT Q2H PRN PRN Reason: Sore Throat Last Admin: 08/05/18 10:04 Dose: 1 nicol Carvedilol (Coreg) 25 mg PO BID [facility] Last Admin: 08/05/18 17:51 Dose: 25 mg Al Hydrox/Mg Hydrox/Simethicone 30 ml/Diphenhydramine HCl 75 mg/Lidocaine 30 ml 0 ml PO AC [facility] Last Admin: 08/05/18 17:52 Dose: 15 ml Cyanocobalamin (Vitamin B12 1000 Mcg/Ml Inj) 1,000 mcg IM DAILY [facility] Last Admin: 08/05/18 09:47 Dose: 1,000 mcg Sodium Chloride (Sodium Chloride 0.9%) 1,000 mls @ 50 mls/hr IV .Q20H [facility] Last Admin: 08/05/18 12:50 Dose: Not Given Aztreonam (Azactam 1 Gm) 100 mls @ 100 mls/hr IVPB Q8 [facility]; Protocol Stop: 08/11/18 14:01 Last Admin: 08/05/18 21:25 Dose: 100 mls/hr Linezolid (Zyvox 600mg/300ml D5w) 600 mg in 300 mls @ 200 mls/hr IVPB Q12 [facility]; Protocol Stop: 08/11/18 10:01 Last Admin: 08/05/18 21:25 Dose: 200 mls/hr Metronidazole (Flagyl) 500 mg in 100 mls @ 100 mls/hr IVPB Q8 [facility]; Protocol Last Admin: 08/05/18 21:25 Dose: 100 mls/hr Insulin Human Regular (Humulin R Med) 0 units SC ACHS [facility]; Protocol Last Admin: 08/05/18 21:35 Dose: Not Given Lorazepam (Ativan) 0.5 mg IVP Q6H PRN; Protocol PRN Reason: Anxiety Last Admin: 08/05/18 21:33 Dose: 0.5 mg Magnesium Oxide (Mag-Ox) 400 mg PO BID [facility] Last Admin: 08/05/18 17:51 Dose: 400 mg Methylprednisolone (Solu-Medrol) 40 mg IVP DAILY [facility] Last Admin: 08/05/18 09:47 Dose: 40 mg Ondansetron HCl (Zofran Inj) 4 mg IVP Q4H PRN PRN Reason: Nausea/Vomiting Last Admin: 08/03/18 20:30 Dose: 4 mg Pantoprazole Sodium (Protonix Inj) 40 mg IVP BID [facility] Last Admin: 08/05/18 17:51 Dose: 40 mg Sacubitril/Valsartan (Entresto 97 Mg-103 Mg Tablet) 1 each PO BID [facility] Last Admin: 08/05/18 17:51 Dose: 1 each Spironolactone (Aldactone) 25 mg PO BID [facility] Last Admin: 08/05/18 17:51 Dose: 25 mg - Labs Labs: 08/05/18 05:00 08/05/18 05:00 PT 10.5 SECONDS (9.4-12.5) 08/02/18 18:20 INR 0.92 08/02/18 18:20 APTT 32.2 Seconds (25.1-36.5) 08/02/18 18:20 Attending/Attestation - Attestation I have personally seen and examined this patient.: Yes I have fully participated in the care of the patient.: Yes I have reviewed all pertinent clinical information, including history, physical exam and plan: Yes Notes (Text): This is an addendum to GI progress report dictated by the GI Fellow.The patient was seen and examined earlier. Medical records, lab studies, imagings were reviewed. Last 24 hours events reviewed. Agreed with the above treatment plan as outlined in GI Fellow 's notes with the addition of the following Discussed with Id ENT note reviewed Patient is now on antibiotics On liquid diet Planned for esophagogram in AM 08/05/18 23:09
--- NOTE | 2018-08-05 16:37 | US ---
Date of service: 08/03/2018 PROCEDURE: Duplex ultrasound of the inferior vena cava HISTORY: IVC evaluation COMPARISON: TECHNIQUE: FINDINGS: The visualized inferior vena cava is sonographically normal and patent. Normal waveforms are noted. No evidence of thrombus is appreciated. IMPRESSION: The visualized IVC is normal
--- NOTE | 2018-08-05 17:17 | PN ---
DATE: 08/05/2018 PULMONARY PROGRESS NOTE REFERRING PHYSICIAN: Carisa Armstrong MD. SUBJECTIVE: She is moved on ICU on telemetry, lying in the bed, still have a sore throat, did not see by ENT yet. No chest pain, no nausea. No vomiting, diarrhea, leg pain or leg swelling. PHYSICAL EXAMINATION: GENERAL: In no acute distress. VITAL SIGNS: Temperature is 98, heart rate 75, respiratory rate is 28, pulse oximetry 100%, blood pressure 162/78. HEENT: Moist mucous membrane. Crowded airway. Still right submandibular area is tender and swollen. LUNGS: Fair airflow. HEART: S1 and S2. ABDOMEN: Soft, nontender. No organomegaly. EXTREMITIES: No edema. NEUROLOGIC: Awake and alert. Follow simple commands. MEDICATIONS: She is on Aldactone 25 mg twice a day, lorazepam 0.5 mg every 6 hours p.r.n., Azactam 1 g IV every 8 hours, Cepacol lozenges every 2 hours p.r.n., Coreg 25 mg twice a day, Entresto is at 1 tab twice a day, Flagyl 500 mg every 8 hours, Magic Mouthwash swish before meals, magnesium oxide 400 mg twice a day, Protonix 40 mg twice a day, IV fluid normal saline 50 mL/hour, Solu-Medrol 40 mg daily, vitamin B12 1000 mcg IM daily, Zofran p.r.n., Zyvox 600 mg twice a day. LABORATORY DATA: Shows hemoglobin 8.5, hematocrit 28, WBC 10.2, platelet is 360. Sodium 141, potassium 3.6, chloride 111, bicarbonate 25, BUN 19, creatinine 0.9, glucose is 113, calcium is 8.2, AST 23, ALT 34, alkaline phosphatase is 90, albumin is 3.3. TSH is 0.5. Urine culture has beta-hemolytic strep. Blood culture has been negative. Nares MRSA non-detected. IMPRESSION AND PLAN: Right glottal area suspicious for infection/inflammatory/tumor, has odynophagia. Awaiting ENT evaluation. Also has cardiomyopathy which is nonischemic, history of automatic implantable cardioverter-defibrillator, chronic lung disease, diabetes, recently admitted with hemoptysis and right leg pain. Hemoptysis is improved now, but still has difficulty swallowing. On broad-spectrum antibiotics covering healthcare-associated organism. Spoke to the nursing staff, administer Magic Mouthwash swish and swallow before meals. Continue steroids. Gastric prophylaxis. SCD to lower extremity. Follow up labs in the morning. Thank you and we will follow with you. Cruz Teran MD
[2018-08-06] MEDS: metroNIDAZOLE IV 500 mg/100 ml 500 MG/100 ML BAG IVPB SCH ×4 (05:02→21:50)
[2018-08-06] MEDS: Aztreonam 1 Gm in NS 100mL 100 ML IVPB SCH ×3 (05:02→21:47)
[2018-08-06 06:57] LABS: ALBUMIN 3.3 g/dL (3.0-4.8); ALT/SGPT 30 U/L (7-56); AST/SGOT 27 U/L (14-36); BLOOD UREA NITROGEN 15 mg/dL (7-21); CALCIUM 8.3 mg/dL (8.4-10.5); GFR NON-AFRICAN AMERICAN > 60
[2018-08-06 07:13] LABS: HEMOGLOBIN 9.2 g/dL (12.0-16.0); MEAN CELL VOLUME 78.7 fl (80.0-105.0); MEAN CORPUSCULAR HEMOGLOBIN 23.9 pg (25.0-35.0); MEAN CORPUSCULAR HGB CONC 30.4 g/dl (31.0-37.0); MEAN PLATELET VOLUME 9.8 fl (7.0-11.0); RBC 3.85 10^6/uL (3.5-6.1); WHITE BLOOD COUNT 8.6 10^3/ul (4.5-11.0)
[2018-08-06] MEDS: Insulin Reg-MEDIUM-Coverage SC SCH ×4 (07:30→21:51)
--- NOTE | 2018-08-06 08:17 | HP ---
The patient is a 53-year-old female. CHIEF COMPLAINT: Vomiting of the blood. HISTORY OF PRESENT ILLNESS: Ms. Pauline Martinez is a 53-year-old lady, was seen by me in the unit on 08/03/2018. The patient has past medical history of diabetes mellitus, hypertension, congestive heart failure, Behcet syndrome, COPD, pacemaker, CVA. She is currently on heart transplant list in [facility]. Her digital forensics examiner is Dr. Kay, came to [facility] for vomiting blood consistent with clot and food for past 2 hours without any improvement in her symptoms. The patient informed associated shortness of breath, nausea, swollen throat secondary to emesis. The patient denies any fever, chills, abdominal pain, chest pain, headache, dizziness, neck pain, back pain, swelling of the leg. The patient has history of anemia, status post blood transfusion. She did vomiting in the emergency room. PAST MEDICAL HISTORY: Cardiac arrhythmias, congestive heart failure, hypertension, defibrillator, pacemaker, waiting list of the heart transplant, anemia, status post blood transfusion, history of gastroesophageal reflux disease, gastrointestinal ulcers, anxiety. FAMILY HISTORY: Father and mother, noncontributory. HABITS: Never smoker. No drugs. No ethanol. ALLERGIES: THE PATIENT IS ALLERGIC WITH ACETAMINOPHEN AND CEFEPIME. HOME MEDICATIONS: Lasix, Aldactone, epinephrine, and Valsartan. REVIEW OF SYSTEMS: The patient was seen and examined at the bedside in the unit. Has swelling of the neck and is constantly spitting, describing shortness of breath, but no chest pain. No hematemesis. No nausea. No diarrhea. No back pain. No neck pain. No headache. No dizziness. PHYSICAL EXAMINATION: VITAL SIGNS: Temperature 99.5, heart rate 115, respiratory rate 20, blood pressure 142/106, pulse oximetry 100%. HEENT: Head is normocephalic and atraumatic. Eyes; PERRLA. Extraocular muscles are intact. Conjunctivae are clear. Nose is patent. Mucous membranes are moist. NECK: Normal range of motion. Swelling on the neck on the left side. CHEST: Bilaterally symmetrical. HEART: S1 and S2 positive. LUNGS: Clear to auscultation. Good air exchange. ABDOMEN: Soft. Bowel sounds present. No organomegaly. EXTREMITIES: No edema. No cyanosis. NEUROLOGIC: The patient is awake and alert. Moving all four extremities. No focal deficits. LABORATORY DATA: White blood cell is 17.5, hemoglobin 9.4, hematocrit 30.4, and platelets 358. Sodium 141, potassium 4.2, BUN 12, creatinine 1, and glucose 121, 117, 127. AST 47. C-reactive protein more than 15. ASSESSMENT AND PLAN: Mr. Pauline Martinez is a 53-year-old lady with leukocytosis, anemia, hyperchloremia, hyperglycemia, abnormal liver function test, proteinuria, ketonuria, hematuria, urinary tract infection. D-dimer is 396. Soft tissue neck CT scan done. Thickened left aryepiglottic fold ascending to the midline and possibly right glottis suspicious of infections, neoplasm cannot be excluded. Followup contrast neck CT and MRI will be recommended for further characterization. We consult ENT. CAT scan of the chest is done also, it showed unremarkable CT pulmonary angio. No further embolism. Dilated main valve artery compatible with pulmonary arterial hypertension. Ascending ectasia measuring 3.9 cm, complex, within the thyroid gland. Dedicated ultrasound can be obtained. No further evaluation of the nonemergent basis. Chest x-ray reviewed by me. The patient has history of Behcet disease with history of hypertension, congestive heart failure, on Lasix, chronic obstructive pulmonary disease, pacemaker, cerebrovascular accident, heart transplantation list, Behcet syndrome, noncompliant. Had multiple times sepsis due to Port-A-Cath, signed against medical advice. Now, the patient has chronic obstructive pulmonary disease. Started on methylprednisolone, , morphine, Zofran, pantoprazole, NS. History of cerebrovascular accident, history of upper gastrointestinal bleeding, history of Behcet syndrome, getting prednisone for that. Follow up blood cultures. Swelling of the neck, ENT consult called. Discussion done with the patient and staff. Systolic congestive heart failure status post automatic implantable cardioverter-defibrillator stable, it will be treated. Cardiology and GI are on the case. Repeat labs. We will follow up. Carisa Armstrong MD [facility] # [id number]
--- NOTE | 2018-08-06 08:27 | CP.PCM.PN ---
<Nikolai Rivero - Last Filed: 08/06/18 11:48> Subjective - Date & Time of Evaluation Date of Evaluation: 08/06/18 Time of Evaluation: 08:23 - Subjective Subjective: Evangelist Rivero PGY2 IM Resident - GI Progress Note Patient seen and examined this AM. No acute events reported overnight. 12 point ROS benign. Objective - Vital Signs/Intake and Output Vital Signs (last 24 hours): Temp Pulse Resp BP Pulse Ox 98.6 F 63 16 142/92 H 100 08/06/18 05:32 08/06/18 05:32 08/06/18 05:32 08/06/18 05:32 08/06/18 05:32 Intake and Output: 08/06/18 08/06/18 06:59 18:59 Intake Total 2140 Output Total 1100 Balance 1040 - Medications Medications: Current Medications Benzocaine/Menthol (Cepacol Sore Throat) 1 nicol MT Q2H PRN PRN Reason: Sore Throat Last Admin: 08/05/18 10:04 Dose: 1 nicol Carvedilol (Coreg) 25 mg PO BID [facility] Last Admin: 08/05/18 17:51 Dose: 25 mg Al Hydrox/Mg Hydrox/Simethicone 30 ml/Diphenhydramine HCl 75 mg/Lidocaine 30 ml 0 ml PO AC [facility] Last Admin: 08/05/18 17:52 Dose: 15 ml Cyanocobalamin (Vitamin B12 1000 Mcg/Ml Inj) 1,000 mcg IM DAILY [facility] Last Admin: 08/05/18 09:47 Dose: 1,000 mcg Sodium Chloride (Sodium Chloride 0.9%) 1,000 mls @ 50 mls/hr IV .Q20H [facility] Last Admin: 08/05/18 12:50 Dose: Not Given Aztreonam (Azactam 1 Gm) 100 mls @ 100 mls/hr IVPB Q8 [facility]; Protocol Stop: 08/11/18 14:01 Last Admin: 08/06/18 05:02 Dose: 100 mls/hr Linezolid (Zyvox 600mg/300ml D5w) 600 mg in 300 mls @ 200 mls/hr IVPB Q12 [facility]; Protocol Stop: 08/11/18 10:01 Last Admin: 08/05/18 21:25 Dose: 200 mls/hr Metronidazole (Flagyl) 500 mg in 100 mls @ 100 mls/hr IVPB Q8 [facility]; Protocol Last Admin: 08/06/18 05:02 Dose: 100 mls/hr Insulin Human Regular (Humulin R Med) 0 units SC ACHS [facility]; Protocol Last Admin: 08/05/18 21:35 Dose: Not Given Lorazepam (Ativan) 0.5 mg IVP Q6H PRN; Protocol PRN Reason: Anxiety Last Admin: 08/05/18 21:33 Dose: 0.5 mg Magnesium Oxide (Mag-Ox) 400 mg PO BID [facility] Last Admin: 08/05/18 17:51 Dose: 400 mg Methylprednisolone (Solu-Medrol) 40 mg IVP DAILY [facility] Last Admin: 08/05/18 09:47 Dose: 40 mg Ondansetron HCl (Zofran Inj) 4 mg IVP Q4H PRN PRN Reason: Nausea/Vomiting Last Admin: 08/03/18 20:30 Dose: 4 mg Pantoprazole Sodium (Protonix Inj) 40 mg IVP BID [facility] Last Admin: 08/05/18 17:51 Dose: 40 mg Sacubitril/Valsartan (Entresto 97 Mg-103 Mg Tablet) 1 each PO BID [facility] Last Admin: 08/05/18 17:51 Dose: 1 each Spironolactone (Aldactone) 25 mg PO BID [facility] Last Admin: 08/05/18 17:51 Dose: 25 mg - Labs Labs: 08/06/18 05:30 08/06/18 05:30 PT 10.5 SECONDS (9.4-12.5) 08/02/18 18:20 INR 0.92 08/02/18 18:20 APTT 32.2 Seconds (25.1-36.5) 08/02/18 18:20 - Constitutional Appears: Non-toxic - Head Exam Head Exam: ATRAUMATIC, NORMAL INSPECTION, NORMOCEPHALIC - Eye Exam Eye Exam: EOMI, PERRL - ENT Exam ENT Exam: Mucous Membranes Moist - Neck Exam Neck Exam: Tenderness (right sided to palpation ) - Respiratory Exam Respiratory Exam: Clear to Ausculation Bilateral, NORMAL BREATHING PATTERN - Cardiovascular Exam Cardiovascular Exam: REGULAR RHYTHM, +S1, +S2 - GI/Abdominal Exam GI & Abdominal Exam: Soft, Normal Bowel Sounds - Extremities Exam Extremities Exam: Full ROM - Neurological Exam Neurological Exam: Alert, Awake, Normal Gait, Oriented x3 Neuro motor strength exam: Left Upper Extremity: 5, Right Upper Extremity: 5, Left Lower Extremity: 5, Right Lower Extremity: 5 - Psychiatric Exam Psychiatric exam: Normal Affect, Normal Mood - Skin Skin Exam: Dry, Intact Assessment and Plan - Assessment and Plan (Free Text) Assessment: 53 year old female with past medical history of Behcet's, systolic CHF EF of 16% with AICD, DM2, COPD, microcytic anemia who presented with hematemesis. Patient with no reported hematemesis since admission. ENT consulted and following yulia ent Plan: Hematemesis Microcytic Anemia EAGLE-resolved COPD DM2 HTN - No evidence of hematemsis s/p ED evaluation - ENT consulted with Dr. Shaffer, s/p laryngoscopy - ENT reporting no obstruction or lesions - Nursing notes indicate no blockages reported from ENT - Patient H/H is sable at this time, improved from 8.5 to 9.2 - Patient reported to have 9 beats of Vtach, cardio consulted - Continue abx as per ID - No plan for EGD at this time Further recommendations per Dr. Adams <Clau Adams V - Last Filed: 08/06/18 22:52> Objective - Vital Signs/Intake and Output Vital Signs (last 24 hours): Temp Pulse Resp BP Pulse Ox 97.1 F L 72 19 129/77 100 08/06/18 18:00 08/06/18 18:00 08/06/18 18:00 08/06/18 18:00 08/06/18 05:32 - Medications Medications: Current Medications Benzocaine/Menthol (Cepacol Sore Throat) 1 nicol MT Q2H PRN PRN Reason: Sore Throat Last Admin: 08/05/18 10:04 Dose: 1 nicol Carvedilol (Coreg) 25 mg PO BID [facility] Last Admin: 08/06/18 18:37 Dose: Not Given Al Hydrox/Mg Hydrox/Simethicone 30 ml/Diphenhydramine HCl 75 mg/Lidocaine 30 ml 0 ml PO AC [facility] Last Admin: 08/06/18 16:30 Dose: 30 ml Cyanocobalamin (Vitamin B12 1000 Mcg/Ml Inj) 1,000 mcg IM DAILY [facility] Last Admin: 08/06/18 09:54 Dose: 1,000 mcg Sodium Chloride (Sodium Chloride 0.9%) 1,000 mls @ 50 mls/hr IV .Q20H [facility] Last Admin: 08/05/18 12:50 Dose: Not Given Aztreonam (Azactam 1 Gm) 100 mls @ 100 mls/hr IVPB Q8 [facility]; Protocol Stop: 08/11/18 14:01 Last Admin: 08/06/18 21:47 Dose: Not Given Linezolid (Zyvox 600mg/300ml D5w) 600 mg in 300 mls @ 200 mls/hr IVPB Q12 [facility]; Protocol Stop: 08/11/18 10:01 Last Admin: 08/06/18 21:51 Dose: Not Given Metronidazole (Flagyl) 500 mg in 100 mls @ 100 mls/hr IVPB Q8 [facility]; Protocol Last Admin: 08/06/18 21:50 Dose: Not Given Insulin Human Regular (Humulin R Med) 0 units SC ACHS [facility]; Protocol Last Admin: 08/06/18 21:51 Dose: Not Given Lorazepam (Ativan) 0.5 mg IVP Q6H PRN; Protocol PRN Reason: Anxiety Last Admin: 08/05/18 21:33 Dose: 0.5 mg Magnesium Oxide (Mag-Ox) 400 mg PO BID [facility] Last Admin: 08/06/18 18:31 Dose: 400 mg Ondansetron HCl (Zofran Inj) 4 mg IVP Q4H PRN PRN Reason: Nausea/Vomiting Last Admin: 08/03/18 20:30 Dose: 4 mg Pantoprazole Sodium (Protonix Inj) 40 mg IVP BID [facility] Last Admin: 08/06/18 18:37 Dose: Not Given Prednisone (Prednisone Tab) 40 mg PO DAILY [facility] Sacubitril/Valsartan (Entresto 97 Mg-103 Mg Tablet) 1 each PO BID [facility] Last Admin: 08/06/18 18:32 Dose: 1 each Spironolactone (Aldactone) 25 mg PO BID [facility] Last Admin: 08/06/18 18:38 Dose: Not Given - Labs Labs: 08/06/18 05:30 08/06/18 05:30 PT 10.5 SECONDS (9.4-12.5) 08/02/18 18:20 INR 0.92 08/02/18 18:20 APTT 32.2 Seconds (25.1-36.5) 08/02/18 18:20 Attending/Attestation - Attestation I have personally seen and examined this patient.: Yes I have fully participated in the care of the patient.: Yes I have reviewed all pertinent clinical information, including history, physical exam and plan: Yes Notes (Text): This is an addendum to GI followup report dictated by the Team Guide. The patient was seen and evaluated earlier. Medical records, lab studies, imagings were reviewed. Last 24 hours events reviewed. Agreed with the above treatment plan as outlined in Team Guide 's notes with the addition of the following This patient has some reaction to antibiotics Refusing to have any antibiotics Wants to go to [facility] to follow up with her Behcet's specialist Esophagram not done Patient reluctant to have any tests Risk of bleeding and serious complications explained Patient fully understood 08/06/18 22:49
--- NOTE | 2018-08-06 08:35 | CON ---
DATE: 08/05/2018 LOCATION: The patient is in ICU, bed 2. REQUESTING PHYSICIAN: Primary Medical Doctor. HISTORY OF PRESENT ILLNESS: This 53-year-old female, as a request of Dr. Armstrong secondary to swelling of the throat, chief complaint of dysphagia, was admitted to ICU and is now seen at bedside with nurse. Patient was awake and alert. She noted interval improvement. She was able to tolerate liquids, seen directly with nurse. She had some water and noted chicken soup at the side of the bed. The patient no more bled, was utilizing a suction catheter to suction saliva and is now seen by ENT for evaluation. There is a chief complaint of epiglottic swelling and swelling of the right side of the neck. There is no fever, no shortness of breath. PHYSICAL EXAMINATION: GENERAL: I noted right-sided mild adenopathy, tender to nodes without bulky mass and noted interval improvement per Nursing. HEENT: Tongue was noted to be midline with good range of motion and a clear oropharyngeal exam. A flexible laryngoscopy was then done through the nose with noted nasal congestion and passing of the nasopharynx with ease. A large tongue was noted. No epiglottic mass or Behcet lesions. Patient was noted to have inflammation. The hypopharynx was patent with a good vocal cord mobility. No lesions noted. Larynx, noted epiglottic closing, swallowing without difficulty. Piriform sinus was noted to be clear, but there was an inflammatory process or inflammation of the mucosal linings. VITAL SIGNS: Temp 98.2, respirations 21 and blood pressure 140/88. Sats were in the high 90s at the time of exam on room air. HEENT: Other than the right-sided lymphadenopathy, no noted mass or soft tissue swelling. Atraumatic, normocephalic. Ears, nose and throat, other than the small amount of swelling in the back of the throat which was noted to be normal on laryngoscopy and the right-sided swelling of the lymph glands. LUNGS: Noncontributory at this time. ABDOMEN: Noncontributory at this time. MUSCULOSKELETAL: No joint deformities. EXTREMITIES: Normal. DATA: Labs were noted. White count of 14, is down to now 8. H and H was normal. Sodium 143, potassium 3.7, chloride 113, CO2 of 24 with a BUN of 19. IMPRESSION: Behcet syndrome with acute pharyngitis. No epiglottic masses or lesions noted with a patent airway and no obstruction to the airway. Mid oropharyngeal right-sided lymphadenopathy with noted improvement with both steroid and antibiotic coverage. Patient should maintain or continue antibiotic coverage, but may be discharged out of ICU and monitored in medical facility and then there as an outpatient with continued outpatient therapy of antibiotics and possible steroids depending upon diabetic control. This may be suggestive of a Behcet syndrome with noted oral lesions which were not identified, but diffuse swelling of the right side which is now noted to be lessened and mild and the patient significantly improved. Would continue as stated therapy. Paddy Shaffer DO MTDD
--- NOTE | 2018-08-06 08:42 | PN ---
DATE: 08/05/2018 SUBJECTIVE: The patient was seen and examined on the bedside on 08/05/2018, looking comfortable. I saw her early in the morning. No new event happened overnight. Still spitting saliva. Swelling of the face and neck is better. No chest pain. No nausea, vomiting, diarrhea. No fever. No chills. No swelling of the legs. PHYSICAL EXAMINATION: VITAL SIGNS: Temperature 98, heart rate 75, respiratory rate 28, pulse oximetry 100%, blood pressure 182/78. HEENT: Head normocephalic, atraumatic. Eyes PERRLA. Extraocular muscles intact. Conjunctivae clear. Nose patent. NECK: Supple. No carotid bruit. No JVD or thyromegaly. CHEST: Bilaterally symmetrical. HEART: S1 and S2 positive. LUNGS: Clear to auscultation. ABDOMEN: Soft. Bowel sounds positive. No organomegaly. EXTREMITIES: No edema. No cyanosis. NEUROLOGICAL: The patient is awake and alert. Moving all 4 extremities. No focal deficits.. MEDICATIONS: Aldactone, lorazepam, Azactam, Cepacol lozenges, Coreg, Estradiol, Flagyl, Magic Mouthwash, Protonix, IV fluid, Solu-Medrol tapering doses, B12, Zofran, Zyvox. ASSESSMENT AND PLAN: Ms. Pauline Martinez, 53-year-old lady with right glottal area suspicious for infection/inflammation/tumor. Has odynophagia. Waiting for ENT evaluation. Consult was called a couple of days ago. History of cardiomyopathy, nonischemic, is on the heat transplant list in [facility] [place]. History of automatic implantable cardioverter-defibrillator, chronic obstructive pulmonary disease, diabetes mellitus, insomnia, has difficulty swallowing, on broad-spectrum antibiotics, history of Behcet's disease. Covering all healthcare-associated organism. Length of time discussion done with the patient and nursing staff. Gastric prophylaxis and sequential compression device to lower extremity given. Later on the day, nurse called me that the patient has episode of arrhythmias. Then, we called consult with the business analysis consultant, Dr. Hill, but the patient is stable. We will follow up. Carisa Armstrong MD [facility] # [id number]
[2018-08-06] MEDS: MethylPREDNISolone 40 mg Vial IVP SCH (09:54)
[2018-08-06] MEDS: Linezolid 600 mg in D5W 300 ml 600 MG/300 ML BAG IVPB SCH ×2 (09:59→21:51)
[2018-08-06] MEDS: Magnesium Oxide 400 mg Tab UD PO SCH ×2 (10:02→18:31)
[2018-08-06] MEDS: SACUBITRIL 97mg/ VALSARTAN 103mg tab PO SCH ×2 (10:03→18:32)
[2018-08-06] MEDS: Aluminum Hydroxide/Magnesium 30 ML, DiphenhydrAMINE 75 MG, Lidocaine 2% Viscous 30 ML PO SCH ×2 (11:30→16:30)
--- NOTE | 2018-08-06 13:24 | CP.PCM.PN ---
Subjective - Date & Time of Evaluation Date of Evaluation: 08/06/18 Time of Evaluation: 10:00 - Subjective Subjective: Still having pain on swallowing, no more hemoptysis or hematemesis, no fevers overnight, no nausea. Objective - Vital Signs/Intake and Output Vital Signs (last 24 hours): Temp Pulse Resp BP Pulse Ox 98.6 F 63 16 142/92 H 100 08/06/18 05:32 08/06/18 05:32 08/06/18 05:32 08/06/18 05:32 08/06/18 05:32 Intake and Output: 08/05/18 08/06/18 18:59 06:59 Intake Total 2140 Output Total 1100 Balance 1040 - Medications Medications: Current Medications Benzocaine/Menthol (Cepacol Sore Throat) 1 nicol MT Q2H PRN PRN Reason: Sore Throat Last Admin: 08/05/18 10:04 Dose: 1 nicol Carvedilol (Coreg) 25 mg PO BID [facility] Last Admin: 08/05/18 17:51 Dose: 25 mg Al Hydrox/Mg Hydrox/Simethicone 30 ml/Diphenhydramine HCl 75 mg/Lidocaine 30 ml 0 ml PO AC [facility] Last Admin: 08/05/18 17:52 Dose: 15 ml Cyanocobalamin (Vitamin B12 1000 Mcg/Ml Inj) 1,000 mcg IM DAILY [facility] Last Admin: 08/05/18 09:47 Dose: 1,000 mcg Sodium Chloride (Sodium Chloride 0.9%) 1,000 mls @ 50 mls/hr IV .Q20H [facility] Last Admin: 08/05/18 12:50 Dose: Not Given Aztreonam (Azactam 1 Gm) 100 mls @ 100 mls/hr IVPB Q8 [facility]; Protocol Stop: 08/11/18 14:01 Last Admin: 08/06/18 05:02 Dose: 100 mls/hr Linezolid (Zyvox 600mg/300ml D5w) 600 mg in 300 mls @ 200 mls/hr IVPB Q12 [facility]; Protocol Stop: 08/11/18 10:01 Last Admin: 08/05/18 21:25 Dose: 200 mls/hr Metronidazole (Flagyl) 500 mg in 100 mls @ 100 mls/hr IVPB Q8 [facility]; Protocol Last Admin: 08/06/18 05:02 Dose: 100 mls/hr Insulin Human Regular (Humulin R Med) 0 units SC ACHS [facility]; Protocol Last Admin: 08/05/18 21:35 Dose: Not Given Lorazepam (Ativan) 0.5 mg IVP Q6H PRN; Protocol PRN Reason: Anxiety Last Admin: 08/05/18 21:33 Dose: 0.5 mg Magnesium Oxide (Mag-Ox) 400 mg PO BID [facility] Last Admin: 08/05/18 17:51 Dose: 400 mg Methylprednisolone (Solu-Medrol) 40 mg IVP DAILY [facility] Last Admin: 08/05/18 09:47 Dose: 40 mg Ondansetron HCl (Zofran Inj) 4 mg IVP Q4H PRN PRN Reason: Nausea/Vomiting Last Admin: 08/03/18 20:30 Dose: 4 mg Pantoprazole Sodium (Protonix Inj) 40 mg IVP BID [facility] Last Admin: 08/05/18 17:51 Dose: 40 mg Sacubitril/Valsartan (Entresto 97 Mg-103 Mg Tablet) 1 each PO BID [facility] Last Admin: 08/05/18 17:51 Dose: 1 each Spironolactone (Aldactone) 25 mg PO BID [facility] Last Admin: 08/05/18 17:51 Dose: 25 mg - Labs Labs: 08/05/18 05:00 08/05/18 05:00 PT 10.5 SECONDS (9.4-12.5) 08/02/18 18:20 INR 0.92 08/02/18 18:20 APTT 32.2 Seconds (25.1-36.5) 08/02/18 18:20 - Constitutional Appears: No Acute Distress, Chronically Ill - Head Exam Head Exam: NORMAL INSPECTION - ENT Exam ENT Exam: Mucous Membranes Moist - Neck Exam Neck Exam: absent: Meningismus - Respiratory Exam Respiratory Exam: Decreased Breath Sounds - Cardiovascular Exam Cardiovascular Exam: +S1, +S2 - GI/Abdominal Exam GI & Abdominal Exam: Soft. absent: Tenderness Assessment and Plan - Assessment and Plan (Free Text) Plan: Assessment systemic inflammatory response syndrome, R/O sepsis due to acute epiglottitis, R/O epiglottic mass, R/O ulcerations due to Behcet's history of sepsis due to Klebsiella bacteremia in patient who had a port-a-cath new onset acute renal failure, improving history of sepsis due to right sided healthcare-associated pneumonia (07/2017) history of sepsis due to Serratia bacteremia probably PICC-line related S/P removal of the PICC line - blood cx are now clear since line removal - PICC line has been replaced last month (2016) history of Klebsiella bacteremia from UTI (2015) history of Methicillin-sensitive Staph aureus bacteremia, persistent from infected tunneled catheter infection in the right anterior chest wall S/P removal (2015) CHF with end-stage cardiomyopathy Coronary artery disease DM S/P AICD placement Plan continue Zyvox, Azactam and Flagyl day 3; blood cx are negative; follow up plan of ENT scope and possible biopsy of the epiglottis; patient also planned for esophagogram per GI will continue to monitor clinically
[2018-08-06] MEDS ORDERED: DiphenhydrAMINE 12.5 mg/5 ml LIQ UD (5 ml) PO STA (18:42)
--- NOTE | 2018-08-07 | PN ---
DATE: 08/06/2018 PULMONARY PROGRESS NOTE REFERRING PHYSICIAN: Carisa Armstrong MD. SUBJECTIVE: She is lying in the bed. Feels a little better. Seen by ENT and thinking process, it maybe Behcet-related inflammatory process in the mouth and pharynx. She is already on steroids. No nausea. No vomiting, diarrhea, leg pain, leg swelling. Swallowing is a little better. OBJECTIVE: GENERAL: In no acute distress. VITAL SIGNS: Temperature is 98, heart rate is 72, respiratory rate is 20, blood pressure 129/77, pulse ox 100% on room air. HEENT: Moist mucous membrane. Crowded airway. Right submandibular area still has tenderness, but improved. LUNGS: Have a fair airflow with few rhonchi. HEART: S1 and S2. ABDOMEN: Soft, nontender. No organomegaly. EXTREMITIES: No edema. NEUROLOGICAL: Awake, alert. Follows simple command. MEDICATIONS: She is on Aldactone 25 mg twice a day, lorazepam 0.5 mg every 6 hours p.r.n., Azactam 1 g IV every 8 hours, Cepacol lozenges is every 2 hours p.r.n., Coreg 25 mg twice a day, Entresto is 1 tab twice a day, Flagyl 500 mg every 8 hours, insulin coverage, also on Magic Mouthwash before meals, magnesium oxide 400 mg twice a day, Protonix 40 mg daily, IV fluid normal saline 50 mL/hour, Solu-Medrol 40 mg daily, vitamin B12 at 1000 mcg IM daily, Zofran p.r.n., Zyvox is 600 mg every 12 hours. LABORATORY DATA: Shows hemoglobin 9.2, hematocrit 30.3, WBC 8.6, platelet count is 377. Sodium 141, potassium 3.5, chloride 108, bicarbonate 26, BUN 15, creatinine 0.8, glucose 139, calcium 8.3, AST 27, ALT 30, alk phos is 86, albumin is 3.3. Urine has beta hemolytic Strep B. Blood culture has been negative. IMPRESSION AND PLAN: Behcet's disease related inflammatory process in the pharyngeal area, cardiomyopathy, chronic lung disease, history of automatic implantable cardioverter-defibrillator. No more hemoptysis. The patient is seen by ENT. We will discontinue Solu-Medrol. Place on prednisone 40 mg daily. Probably, need to discontinue antibiotics if okay with Infectious Diseases. Gastric prophylaxis. Sequential compression device to lower extremity. The patient can be started back on her anticoagulation. Thank you and we will follow with you. Cruz Teran MD
--- NOTE | 2018-08-07 00:23 | CON ---
DATE: 08/06/2018 CONSULTATION SERVICE: CARDIOLOGY DICTATING PHYSICIAN: Cruz Hill MD REASON FOR THE CONSULTATION: Ten beats of VT, history of cardiomyopathy, history of AICD, admitted with acute pharyngitis, had difficulty in swallowing and talking. BRIEF CLINICAL HISTORY: This is a 53-year-old female with past medical history of nonischemic cardiomyopathy, on transplant list, history of AICD, admitted here with complaint of acute pharyngitis with difficulty in swallowing, difficulty in talking, was in ICU, was transferred yesterday to telemetry with patient's 10 beats of VT, Cardiology consult was called. Patient denies any chest pain, denies any shortness of breath, denies any palpitation. PAST MEDICAL HISTORY: Significant for cardiac arrhythmia, AICD, history of congestive heart failure, history of hypotension, history of nonischemic cardiomyopathy, awaiting transplant list at [facility], being followed by Dr. Kay and being followed by Dr. Patrick Lugo for defibrillator followup; history of gastrointestinal reflux, history of gastrointestinal ulcer and anxiety disorder. Also mentioned as history of CHF, history of congestive heart failure, history of nonischemic cardiomyopathy in the past, history of Behcet's syndrome, history of decreased LV function, ejection fraction of 20%, cath 11/2015 status post Biotronik single-lead AICD and history of diabetes, history of hypertension, history of iron-deficiency anemia, history of sleep apnea and history of obesity. PREVIOUS CARDIAC WORKUP: As follows: Patient has echocardiography 07/18/2017 that revealed ejection fraction of 25%, four chamber dilatation, [id number] aortic regurgitation, moderate mitral regurgitation, [id number] tricuspid regurgitation, no pericardial effusion. AICD lead noted RA-RV. Patient had last catheterization by Dr. Sr 10/07/2015 that shows ejection fraction of 20% to 25%, left main is essentially free of significant disease, intimal irregularity, LAD, RCA revealed intimal irregularity with no flow obstructive stenosis noted. Prior to that, patient had also echo in 2015, that also shows ejection fraction of 25%. SOCIAL HISTORY: Denies any smoking. Denies any history of alcohol abuse. CURRENT MEDICATIONS: Patient is taking at home before coming, spironolactone 25 mg daily, Entresto 97/103 twice a day, prednisone, Protonix, Zofran, nitrofurantoin, lorazepam, Lasix, epinephrine, cyanocobalamin and carvedilol. ALLERGIES: ALLERGY TO ACETAMINOPHEN, ALLERGY TO CEFEPIME. REVIEW OF SYSTEMS: As per HPI. PHYSICAL EXAMINATION: VITAL SIGNS: Height of the patient 5 feet 7 inches, weight of the patient 225 pounds, body mass index 36 kg/sq m. Rest of the vitals, temperature afebrile, heart rate 73, blood pressure 148/92. HEENT: PERRLA. Extraocular muscles intact. NECK: Supple. No carotid bruits or thyromegaly. CHEST: Clear to auscultation. HEART: S1 and S2 regular. ABDOMEN: Soft. EXTREMITIES: Clubbing and cyanosis negative. LABORATORY DATA: Blood workup as follows: WBC 8.6, hemoglobin 9.8, hematocrit 30.3, platelet count 377. Chemistry shows sodium 141, potassium 3.5, chloride 108, carbon dioxide 26, anion gap of 10, BUN 15, creatinine 0.8. Total protein 6.7, albumin 3.4, albumin globulin ratio 1. Magnesium and phosphate not done today, pending EKG shows normal sinus rhythm, acute ST-T changes noted. EKG admitting shows sinus tachycardia, telemetry shows normal sinus at the rate of 60. IMPRESSION AND PLAN: A 53-year-old female with past medical history of obesity, gastroesophageal reflux, Behcet's syndrome, history of cardiac catheterization, nonobstructive coronary artery disease, mild intimal irregularity, nonischemic cardiomyopathy. Most recent echo shows four chamber dilatation, ejection fraction of 25%, [id number] tricuspid regurgitation, admitted with acute pharyngitis, difficulty in swallowing, difficulty in talking, was in ICU, transferred to telemetry, 15 beats of ventricular tachycardia, hemodynamically remains stable. Potassium is low. We will supplement potassium. Continue treatment with Entresto, spironolactone, diuretics, monitor electrolytes. We will also send the magnesium level and keep in the emergency room at level of 2 and potassium of 4. No further cardiac workup is planned at this time. We will follow with you. Upon discharge, patient is going to be followed up with Dr. Sourav Kay at [facility] and Dr. Patrick Lugo for defibrillator followup. Patient has a Biotronik single-chamber AICD. Thank you Dr. Armstrong for providing us the opportunity in taking care of the patient, Anicet Juan. Cruz Hill MD
--- NOTE | 2018-08-07 02:24 | PN ---
DATE: 08/06/2018 The patient is a 53-year-old female. SUBJECTIVE: The patient was seen and examined at the bedside on 08/06/2018 and looking comfortable, still having dysphagia and swelling of the neck is better, still spitting saliva. No fever. No chills. No headache. No chest pain. No palpitation. No hematuria or hematochezia. PHYSICAL EXAMINATION: VITAL SIGNS: Temperature 98.6, pulse 63, respiratory rate 16, blood pressure 140/92, pulse oximetry 100. HEENT: Head is normocephalic and atraumatic. Eyes; PERRLA. Extraocular muscles are intact. Conjunctivae are clear. Nose is patent. Mucous membranes are moist. NECK: Supple. No carotid bruit, JVD, or thyromegaly. CHEST: Bilaterally symmetrical. HEART: S1 and S2 positive. LUNGS: Clear to auscultation. ABDOMEN: Soft. Bowel sounds are present. No organomegaly. EXTREMITIES: No edema. No cyanosis. NEUROLOGIC: The patient is awake and alert. Moving all 4 extremities. No focal deficits. MEDICATIONS: Coreg, cyanocobalamin, sodium chloride, Aldactone, Zyvox, Flagyl, insulin, Ativan, magnesium oxide, Solu-Medrol, Zofran, pantoprazole, spironolactone. LABORATORY DATA: White blood cell is 18.2, hemoglobin 8.5, hematocrit is 28, and platelets 360. Sodium 141, potassium 3.6, BUN 19, creatinine 0.9, and glucose is 94. ASSESSMENT AND PLAN: Ms. 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 New onset acute renal failure, improving; history of sepsis due to right-sided healthcare-associated pneumonia. She has multiple admission with different type of sepsis, congestive heart failure, cardiomyopathy. She is a candidate for a heart transplant in [facility]. Coronary artery disease, diabetes mellitus, status post automatic implantable cardioverter-defibrillator. Continue Zyvox, Azactam, Flagyl. Blood cultures are negative. Followup plan of ENT scope and possibily biopsy of the epiglottitis. The patient is also planned for esophagography per GI. We will continue to monitoring clinically. Length of time discussion done with the patient and the patient's nursing staff. Repeat labs. We will follow up. Carisa Armstrong MD MTDKale
[2018-08-07] MEDS: Aztreonam 1 Gm in NS 100mL 100 ML IVPB SCH (06:00)
[2018-08-07] MEDS: metroNIDAZOLE IV 500 mg/100 ml 500 MG/100 ML BAG IVPB SCH (06:00)
[2018-08-07] MEDS: Sodium Chloride 0.9% 1,000 ML IV SCH (06:03)
[2018-08-07 07:23] LABS: HEMOGLOBIN 9.5 g/dL (12.0-16.0); MEAN CELL VOLUME 77.7 fl (80.0-105.0); MEAN CORPUSCULAR HEMOGLOBIN 23.8 pg (25.0-35.0); MEAN CORPUSCULAR HGB CONC 30.6 g/dl (31.0-37.0); MEAN PLATELET VOLUME 9.8 fl (7.0-11.0); RBC 3.99 10^6/uL (3.5-6.1); RED CELL DISTRIBUTION WIDTH 14.9 % (11.5-14.5); WHITE BLOOD COUNT 8.3 10^3/ul (4.5-11.0)
--- NOTE | 2018-08-07 07:30 | CP.PCM.PN ---
Subjective - Date & Time of Evaluation Date of Evaluation: 08/07/18 Time of Evaluation: 06:25 - Subjective Subjective: Awake, alert, denies chest pain Reason for consultation and follow up: Cardiac evaluation of ten beats of ventricular tachycardia, history of cardiomyopathy, history of AICD, admitted for acute pharyngitis Seen and examined by me and Dr. Hill Objective - Vital Signs/Intake and Output Vital Signs (last 24 hours): Temp Pulse Resp BP Pulse Ox 97.1 F L 58 L 19 129/77 100 08/06/18 18:00 08/07/18 06:00 08/06/18 18:00 08/06/18 18:00 08/06/18 05:32 Intake and Output: 08/07/18 08/07/18 06:59 18:59 Intake Total 600 Balance 600 - Medications Medications: Current Medications Benzocaine/Menthol (Cepacol Sore Throat) 1 nicol MT Q2H PRN PRN Reason: Sore Throat Last Admin: 08/05/18 10:04 Dose: 1 nicol Carvedilol (Coreg) 25 mg PO BID [facility] Last Admin: 08/06/18 18:37 Dose: Not Given Al Hydrox/Mg Hydrox/Simethicone 30 ml/Diphenhydramine HCl 75 mg/Lidocaine 30 ml 0 ml PO AC [facility] Last Admin: 08/06/18 16:30 Dose: 30 ml Cyanocobalamin (Vitamin B12 1000 Mcg/Ml Inj) 1,000 mcg IM DAILY [facility] Last Admin: 08/06/18 09:54 Dose: 1,000 mcg Sodium Chloride (Sodium Chloride 0.9%) 1,000 mls @ 50 mls/hr IV .Q20H [facility] Last Admin: 08/07/18 06:03 Dose: 50 mls/hr Aztreonam (Azactam 1 Gm) 100 mls @ 100 mls/hr IVPB Q8 [facility]; Protocol Stop: 08/11/18 14:01 Last Admin: 08/07/18 06:00 Dose: Not Given Linezolid (Zyvox 600mg/300ml D5w) 600 mg in 300 mls @ 200 mls/hr IVPB Q12 [facility]; Protocol Stop: 08/11/18 10:01 Last Admin: 08/06/18 21:51 Dose: Not Given Metronidazole (Flagyl) 500 mg in 100 mls @ 100 mls/hr IVPB Q8 [facility]; Protocol Last Admin: 08/07/18 06:00 Dose: Not Given Insulin Human Regular (Humulin R Med) 0 units SC ACHS [facility]; Protocol Last Admin: 08/06/18 21:51 Dose: Not Given Lorazepam (Ativan) 0.5 mg IVP Q6H PRN; Protocol PRN Reason: Anxiety Last Admin: 08/05/18 21:33 Dose: 0.5 mg Magnesium Oxide (Mag-Ox) 400 mg PO BID [facility] Last Admin: 08/06/18 18:31 Dose: 400 mg Ondansetron HCl (Zofran Inj) 4 mg IVP Q4H PRN PRN Reason: Nausea/Vomiting Last Admin: 08/03/18 20:30 Dose: 4 mg Pantoprazole Sodium (Protonix Inj) 40 mg IVP BID [facility] Last Admin: 08/06/18 18:37 Dose: Not Given Prednisone (Prednisone Tab) 40 mg PO DAILY [facility] Sacubitril/Valsartan (Entresto 97 Mg-103 Mg Tablet) 1 each PO BID [facility] Last Admin: 08/06/18 18:32 Dose: 1 each Spironolactone (Aldactone) 25 mg PO BID [facility] Last Admin: 08/06/18 18:38 Dose: Not Given - Labs Labs: 08/07/18 06:30 08/06/18 05:30 PT 10.5 SECONDS (9.4-12.5) 08/02/18 18:20 INR 0.92 08/02/18 18:20 APTT 32.2 Seconds (25.1-36.5) 08/02/18 18:20 - Constitutional Appears: Non-toxic, No Acute Distress - Head Exam Head Exam: NORMAL INSPECTION, NORMOCEPHALIC - Eye Exam Eye Exam: Normal appearance - ENT Exam ENT Exam: Mucous Membranes Dry - Respiratory Exam Respiratory Exam: Decreased Breath Sounds, Clear to Ausculation Bilateral, NORMAL BREATHING PATTERN - Cardiovascular Exam Cardiovascular Exam: Bradycardia, +S1, +S2 Additional comments: Telemetry 50's AICD - GI/Abdominal Exam GI & Abdominal Exam: Soft, Normal Bowel Sounds - Neurological Exam Neurological Exam: Alert, Awake, Oriented x3 - Psychiatric Exam Psychiatric exam: Normal Affect, Normal Mood - Skin Skin Exam: Dry, Intact, Warm Assessment and Plan - Assessment and Plan (Free Text) Assessment: A 53 year old obese female who came in to the ER due to difficulty swallowing and talking, pharyngitis. Consult was called due to 10 beats of ventricular tachycardia, history of non ischemic cardiomyopathy with AICD. She is on the heart transplant list at [facility]. She follows up with Dr. Kay. History of cardiac arrythmia, congestive heart failure,GERD, anxiety,Behcet's syndrome, diabetes, hypertension,iron deficiency anemia, sleep apnea.Low potassium at time of ventricular tachycardia and was replenished. Will monitor electrolytes. Cardiac status stable. Plan: Denies chest pain,denies shortness of breath Stable cardiac status Heart rate and blood pressure controlled Replenish electrolytes Followed up by ENT Continue IV antibiotics per ID Continue current treatment Continue current medications Chart reviewed Will follow up Plan and treatment discussed with Dr. Hill
[2018-08-07 07:54] LABS: ALBUMIN 3.3 g/dL (3.0-4.8); ALT/SGPT 24 U/L (7-56); AST/SGOT 45 U/L (14-36); BLOOD UREA NITROGEN 15 mg/dL (7-21); CALCIUM 8.4 mg/dL (8.4-10.5); GFR NON-AFRICAN AMERICAN > 60
[2018-08-07] MEDS: Aluminum Hydroxide/Magnesium 30 ML, DiphenhydrAMINE 75 MG, Lidocaine 2% Viscous 30 ML PO SCH ×2 (08:11→12:11)
[2018-08-07 08:39] VITALS: BP 145/91; RESP 20; TEMP 98.3; O2SAT 99
[2018-08-07] MEDS ORDERED: Potassium Chloride 20 mEq ER Tab PO ONE (10:51)
[2018-08-07] MEDS: Linezolid 600 mg in D5W 300 ml 600 MG/300 ML BAG IVPB SCH (11:07)
[2018-08-07] MEDS: SACUBITRIL 97mg/ VALSARTAN 103mg tab PO SCH (11:07)
[2018-08-07] MEDS: Magnesium Oxide 400 mg Tab UD PO SCH (12:10)
--- NOTE | 2018-08-07 13:36 | CP.PCM.PN ---
<Nikolai Rivero - Last Filed: 08/07/18 13:32> Subjective - Date & Time of Evaluation Date of Evaluation: 08/07/18 Time of Evaluation: 08:15 - Subjective Subjective: GI Progress note for Dr. Adams Patient seen and examined this AM. No acute events reported overnight. Patient indicates she would like to see her own "Behcet's Doctor." 12 point ROS benign other than right sided neck tenderness, some discomfort when swallowing, perisistnet saliva expectoration. Objective - Vital Signs/Intake and Output Vital Signs (last 24 hours): Temp Pulse Resp BP Pulse Ox 98.3 F 51 L 20 145/91 H 99 08/07/18 08:38 08/07/18 08:38 08/07/18 08:38 08/07/18 08:38 08/07/18 08:38 Intake and Output: 08/07/18 08/07/18 06:59 18:59 Intake Total 600 Balance 600 - Medications Medications: Current Medications Benzocaine/Menthol (Cepacol Sore Throat) 1 nicol MT Q2H PRN PRN Reason: Sore Throat Last Admin: 08/05/18 10:04 Dose: 1 nicol Carvedilol (Coreg) 25 mg PO BID [facility] Last Admin: 08/07/18 11:07 Dose: Not Given Al Hydrox/Mg Hydrox/Simethicone 30 ml/Diphenhydramine HCl 75 mg/Lidocaine 30 ml 0 ml PO AC [facility] Last Admin: 08/07/18 12:11 Dose: Not Given Cyanocobalamin (Vitamin B12 1000 Mcg/Ml Inj) 1,000 mcg IM DAILY [facility] Last Admin: 08/07/18 11:06 Dose: 1,000 mcg Furosemide (Lasix) 40 mg PO 0800,1400 [facility] Aztreonam (Azactam 1 Gm) 100 mls @ 100 mls/hr IVPB Q8 [facility]; Protocol Stop: 08/11/18 14:01 Last Admin: 08/07/18 06:00 Dose: Not Given Linezolid (Zyvox 600mg/300ml D5w) 600 mg in 300 mls @ 200 mls/hr IVPB Q12 [facility]; Protocol Stop: 08/11/18 10:01 Last Admin: 08/07/18 11:07 Dose: 200 mls/hr Metronidazole (Flagyl) 500 mg in 100 mls @ 100 mls/hr IVPB Q8 [facility]; Protocol Last Admin: 08/07/18 06:00 Dose: Not Given Insulin Human Regular (Humulin R Med) 0 units SC ACHS [facility]; Protocol Last Admin: 08/06/18 21:51 Dose: Not Given Lorazepam (Ativan) 0.5 mg IVP Q6H PRN; Protocol PRN Reason: Anxiety Last Admin: 08/05/18 21:33 Dose: 0.5 mg Magnesium Oxide (Mag-Ox) 400 mg PO BID [facility] Last Admin: 08/07/18 12:10 Dose: Not Given Ondansetron HCl (Zofran Inj) 4 mg IVP Q4H PRN PRN Reason: Nausea/Vomiting Last Admin: 08/03/18 20:30 Dose: 4 mg Pantoprazole Sodium (Protonix Inj) 40 mg IVP BID [facility] Last Admin: 08/07/18 11:06 Dose: 40 mg Prednisone (Prednisone Tab) 40 mg PO DAILY [facility] Last Admin: 08/07/18 11:07 Dose: 40 mg Sacubitril/Valsartan (Entresto 97 Mg-103 Mg Tablet) 1 each PO BID [facility] Last Admin: 08/07/18 11:07 Dose: 1 each Spironolactone (Aldactone) 25 mg PO BID [facility] Last Admin: 08/07/18 11:07 Dose: 25 mg - Labs Labs: 08/07/18 06:30 08/07/18 06:30 PT 10.5 SECONDS (9.4-12.5) 08/02/18 18:20 INR 0.92 08/02/18 18:20 APTT 32.2 Seconds (25.1-36.5) 08/02/18 18:20 - Head Exam Head Exam: ATRAUMATIC, NORMAL INSPECTION, NORMOCEPHALIC - Eye Exam Eye Exam: EOMI, PERRL - ENT Exam ENT Exam: Mucous Membranes Moist - Neck Exam Neck Exam: Full ROM, Tenderness (right sided ) - Respiratory Exam Respiratory Exam: Clear to Ausculation Bilateral, NORMAL BREATHING PATTERN. absent: Rales, Stridor - Cardiovascular Exam Cardiovascular Exam: REGULAR RHYTHM, +S1, +S2 - GI/Abdominal Exam GI & Abdominal Exam: Soft, Normal Bowel Sounds - Extremities Exam Extremities Exam: Full ROM. absent: Calf Tenderness, Pedal Edema - Neurological Exam Neurological Exam: Alert, Awake, CN II-XII Intact, Normal Gait, Oriented x3 Neuro motor strength exam: Left Upper Extremity: 5, Right Upper Extremity: 5, Left Lower Extremity: 5, Right Lower Extremity: 5 - Psychiatric Exam Psychiatric exam: Normal Affect, Normal Mood - Skin Skin Exam: Dry, Intact Assessment and Plan - Assessment and Plan (Free Text) Assessment: 53 year old female with past medical history of Behcet's, systolic CHF EF of 16% with AICD, DM2, COPD, microcytic anemia who presented with hematemesis. Patient with no reported hematemesis since admission. Patient with suspected ulceration of oropharynx secondary to immunocomprimised state Plan: Hematemesis Microcytic Anemia EAGLE-resolved COPD DM2 HTN - Patient hesitant and refusing further procedures or testing - Diagnosis, Risks, benefits, outcomes were explained to patient regarding denial of no further procedures, patient verball agreed and in understanding - No evidence of hematemsis s/p ED evaluation - ENT consulted with Dr. Shaffer, s/p laryngoscopy, follow up recommendations - ENT report indicating behcet syndrome with acute pharyngitis, no epiglotic masses or lesions noted with patent airway and no obstruction to airway - Mild oropharyngeal right sided lymphadenopathy - Continue antibiotics and steroids - Patient H/H is sable at this time - Continue abx as per ID - No plan for EGD at this time Further recommendations per Dr. Adams <Clau Adams V - Last Filed: 08/08/18 00:42> Objective - Vital Signs/Intake and Output Vital Signs (last 24 hours): Temp Pulse Resp BP Pulse Ox 98.3 F 75 20 145/91 H 99 08/07/18 08:38 08/07/18 10:00 08/07/18 08:38 08/07/18 08:38 08/07/18 08:38 - Labs Labs: 08/07/18 06:30 08/07/18 06:30 PT 10.5 SECONDS (9.4-12.5) 08/02/18 18:20 INR 0.92 08/02/18 18:20 APTT 32.2 Seconds (25.1-36.5) 08/02/18 18:20 Attending/Attestation - Attestation I have personally seen and examined this patient.: Yes I have fully participated in the care of the patient.: Yes I have reviewed all pertinent clinical information, including history, physical exam and plan: Yes Notes (Text): This is an addendum to GI followup report dictated by the Blade Operator. The patient was seen and evaluated earlier. Medical records, lab studies, imagings were reviewed. Last 24 hours events reviewed. Agreed with the above treatment plan as outlined in Blade Operator 's notes with the addition of the following Patient feeling slightly better On antibiotics Patient wants to go to [facility] Does not want endoscopy or further workup here Continue antibiotics PPI 08/08/18 00:41
[2018-08-07 14:12] VITALS: PULSE 75
--- NOTE | 2018-08-07 15:25 | PN ---
DATE: 08/07/2018 REASON FOR DICTATION: Addendum to initial progress note dictated by our nurse practitioner. The patient had another episode of 10 beats of ventricular tachycardia and was reported by the telemetry nurse that pacemaker spike comes after the QRS complex. Rule out malfunction of AICD. The patient denies any chest pain, but feels some funny sensation. Denies any palpitation. This is a 53-year-old female with past medical history of nonobstructive coronary artery disease, status post AICD, being followed by Dr. Patrick Lugo and by Dr. Sourav Kay at [facility] for evaluation for heart transplant list. PLAN: We will call [employer] to evaluate the function of AICD. Also, supplement potassium to 3.7. Interim, continue spironolactone. Continue carvedilol. Continue Entresto. Continue antibiotic as per ID. We will discontinue IV fluid to prevent going into pulmonary edema because the patient has a history of cardiomyopathy. K-Dur 40 supplement for decreased potassium. Further recommendation will be made after the pacemaker interrogation. Once the patient becomes euvolemic, we will restart Lasix from tomorrow. We will resume back Lasix 40 mg at 8 o'clock and 2 p.m. Monitor electrolytes. Supplement as needed. We will repeat mag and phosphate level tomorrow. Thank you, Dr. Armstrong for providing us the opportunity in taking care of the patient, Korey Martinez. Cruz Hill MD
--- NOTE | 2018-08-08 01:33 | PN ---
DATE: 08/07/2018 SUBJECTIVE: The patient is in bed, in no acute distress, was seen early this morning in 375, bed 2. PHYSICAL EXAMINATION: VITAL SIGNS: Temperature 98, blood pressure is 140/80, respiratory rate 20, heart rate of 58. HEENT: Examination of HEENT is unremarkable. NECK: Supple. LUNGS: Have decreased breath sounds. HEART: Normal S1, S2. ABDOMEN: Soft. LABORATORY EXAMINATION: Reveals a white count of 8.3, hemoglobin of 9. Sed rate of 56. BUN of 15, creatinine of 0.9. Urinalysis is noted. Microbiology reveals the blood cultures negative. Urine culture is beta-hemolytic strep with group B. Nares is not detected. ASSESSMENT AND PLAN: A 53-year-old female seen early this morning in room 375, bed 2, with systemic inflammatory response syndrome, rule out sepsis with acute epiglottitis versus a mass. History of Klebsiella bacteremia and Port-A-Cath, on Zyvox, Azactam and Flagyl, day #3. Continue present course. Osmany Garza MD
== END 2018-08-07 14:22 | disposition left against medical advice (07) | DRG 546 ==
LOC: ED 17:52 → ERH 22:30 → ICU 08-03 01:40 → 2RNO 08-05 11:13 → 3RSO 08-06 23:59
PROVIDERS: ADMIT Internal Medicine; ATTEND Internal Medicine
DX: M35.2 Behcet's disease (principal); J05.10 Acute epiglottitis without obstruction; I50.22 Chronic systolic (congestive) heart failure; N17.9 Acute kidney failure, unspecified; I42.9 Cardiomyopathy, unspecified; I47.2 Ventricular tachycardia; R65.10 Systemic inflammatory response syndrome (SIRS) of non-infectious origin without acute organ dysfunction; Z76.82 Awaiting organ transplant status; E11.65 Type 2 diabetes mellitus with hyperglycemia; D50.9 Iron deficiency anemia, unspecified; I11.0 Hypertensive heart disease with heart failure; I27.21 Secondary pulmonary arterial hypertension; J44.9 Chronic obstructive pulmonary disease, unspecified; K21.9 Gastro-esophageal reflux disease without esophagitis; I25.10 Atherosclerotic heart disease of native coronary artery without angina pectoris; J02.9 Acute pharyngitis, unspecified; R13.10 Dysphagia, unspecified; G47.00 Insomnia, unspecified; I36.1 Nonrheumatic tricuspid (valve) insufficiency; G47.30 Sleep apnea, unspecified; F41.9 Anxiety disorder, unspecified; E66.9 Obesity, unspecified; Z68.33 Body mass index [BMI] 33.0-33.9, adult; Z95.810 Presence of automatic (implantable) cardiac defibrillator; Z86.73 Personal history of transient ischemic attack (TIA), and cerebral infarction without residual deficits

== ENCOUNTER 2018-09-10 10:44 | Emergency (ER) | payer OTHER ==
[2018-09-10 10:45] VITALS: BMI 35.0
--- NOTE | 2018-09-10 11:36 | ED PDOC ---
Arrival/HPI - General Chief Complaint: Upper Extremity Problem/Injury Time Seen by Provider: 09/10/18 11:12 Historian: Patient - History of Present Illness Narrative History of Present Illness (Text): 09/10/18 11:36 53 year old female whose past medical history includes lupus, Behcet's disease, and pacemaker placement(2010), who presents to the Emergency department complaining of worsening right lower extremity cramping radiating to right upper extremity and neck for the past 2 days. Patient reports that the pain in her right upper extremity feels "funny", and has noticed swelling in her right upper and lower extremity. She denies trying to take any medications to alleviate her pain. Of note per patient she is on a cardiac transplant list. She denies any recent trauma to the arm or lower extremity, and states that she is experiencing right wrist numbness radiating to along her arm. Patient admits to nausea, and notes that she hasn't experienced any similar symptoms in the past. Of note there have been sudden cardiac deaths noted in several family members. Patient denies being on any blood thinners, but takes 10mg of a steroid once daily. Per patient, she had a carotid doppler done recently, which was fine. Per patient, she is allergic to Tylenol. Patient denies fevers, chills, cough, shortness of breath, chest pain, dyspnea on exertion, abdominal pain, vomiting, dysuria, syncope, diarrhea, back pain, neck pain, headache, dizziness, or any other complaint. 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 Time/Duration: < week Symptom Onset: Sudden Symptom Course: Worsening Quality: Cramping Context: Home Past Medical History - Provider Review Nursing Documentation Reviewed: Yes - Past History Past History: No Previous - Infectious Disease Hx of Infectious Diseases: None - Tetanus Immunization Tetanus Immunization: Unknown - Reproductive Menopause: Yes - Cardiac Hx Cardiac Disorders: Yes Hx Congestive Heart Failure: Yes Hx Hypertension: Yes - Pulmonary Hx Respiratory Disorders: No - Neurological Hx Neurological Disorder: Yes HX Cerebrovascular Accident: Yes - HEENT Hx HEENT Disorder: Yes (Wears glasses.) - Renal Hx Renal Disorder: No - Endocrine/Metabolic Hx Diabetes Mellitus Type 2: Yes - Hematological/Oncological Hx Blood Disorders: Yes Hx Anemia: Yes (with blood transfusion) - Integumentary Hx Dermatological Disorder: No - Musculoskeletal/Rheumatological Hx Falls: No - Gastrointestinal Hx Gastrointestinal Disorders: Yes Hx Gastroesophageal Reflux: Yes - Genitourinary/Gynecological Hx Genitourinary Disorders: No - Psychiatric Hx Psychophysiologic Disorder: No Hx Substance Use: No - Surgical History Hx Cardiac Catheterization: Yes Other/Comment: defibrillator 2010 - Anesthesia Hx Anesthesia: Yes Hx Anesthesia Reactions: No Hx Malignant Hyperthermia: No - Suicidal Assessment Feels Threatened In Home Enviroment: No Family/Social History - Physician Review Nursing Documentation Reviewed: Yes Family/Social History: Other (sudden cardiac for multiple family members) Smoking Status: Never Smoked Hx Alcohol Use: No Hx Substance Use: No Hx Substance Use Treatment: No Allergies/Home Meds Allergies/Adverse Reactions: Allergies acetaminophen Allergy (Verified 09/10/18 11:08) ANGIOEDEMA cefepime Allergy (Verified 09/10/18 11:08) ANAPHYLAXIS Home Medications: Home Meds Medication Instructions Recorded Confirmed Furosemide [Lasix] 40 mg PO BID 10/17/15 09/10/18 Spironolactone [Aldactone] 25 mg PO BID 03/29/16 09/10/18 Epinephrine HCl [Epipen 0.3 mg IM ONCE PRN 03/26/17 09/10/18 Auto-Injector] Sacubitril/Valsartan [Entresto 97 1 each PO BID 11/21/17 09/10/18 mg-103 mg Tablet] Review of Systems - Physician Review All systems were reviewed & negative as marked: Yes - Review of Systems Constitutional: Other (hot flashes which patient attributes to menopause). absent: Fevers Eyes: absent: Vision Changes Respiratory: absent: SOB, Cough Cardiovascular: Edema (right lower extremity and right upper extremity). absent: Chest Pain, Syncope Gastrointestinal: Nausea. absent: Abdominal Pain, Constipation, Diarrhea, Vomiting Genitourinary Female: absent: Dysuria Musculoskeletal: absent: Back Pain, Neck Pain, Myalgias Neurological: absent: Headache, Dizziness Physical Exam Vital Signs Reviewed: Yes Vital Signs Temp Pulse Resp BP Pulse Ox 09/10/18 11:04 98.8 F 90 18 133/89 100 09/10/18 10:45 97.8 F 89 13 158/135 H 100 Temperature: Afebrile Blood Pressure: Hypertensive Pulse: Regular Respiratory Rate: Normal Appearance: Positive for: Well-Appearing Mental Status: Positive for: Alert and Oriented X 3 - Systems Exam Head: Present: Atraumatic, Normocephalic Pupils: Present: PERRL Extroacular Muscles: Present: EOMI Conjunctiva: Present: Normal Mouth: Present: Moist Mucous Membranes Neck: Present: Normal Range of Motion Respiratory/Chest: Present: Clear to Auscultation, Good Air Exchange, Other (palpable device implant in left upper thorax.). No: Respiratory Distress, Accessory Muscle Use Cardiovascular: Present: Regular Rate and Rhythm, Normal S1, S2. No: Murmurs Abdomen: No: Tenderness, Distention, Peritoneal Signs Back: Present: Normal Inspection Upper Extremity: Present: Normal Inspection, Edema (mild edema of right upper extremity.), Tenderness (Tenderness to palpation of right ulnar on side of distal radius.). No: Cyanosis Lower Extremity: Present: Normal Inspection, CALF TENDERNESS (right lower extremity). No: Edema Neurological: Present: GCS=15, CN II-XII Intact, Speech Normal Skin: Present: Warm, Dry, Normal Color, Other (old healed incision on right upper extremity.). No: Rashes Psychiatric: Present: Alert, Oriented x 3, Normal Insight, Normal Concentration Medical Decision Making ED Course and Treatment: 09/10/18 11:36 Impression: 53 year old female complaining of worsening right lower extremity and upper extremity pain that started 2 days ago. Differential Diagnosis included but are not limited to: DVT Lupus flare up Fibromyalgia Plan: -- VBG -- Cardiac enzymes --CTPE -- Labs -- Blood work -- D-dimer -- Chest X-ray -- Urine culture -- Toradol -- Right upper and lower extremity US. -- Reassess and disposition Prior Visits: Notes and results from previous visits were reviewed. Progress Notes: 09/10/18 12:29 Radiology called and stated US negative for DVT. 09/10/18 16:11 Labs reviewed with elevated D-dimer in which CTPE was ordered. After discussion with patient she does not want to have CT scan performed at this time.She has no symptoms of chest pain, palpitations or shortness of breath at this time. She states she will have additional studies performed with her physician at [facility] at this time. Patient feels better. Return protocol given. She is stable for discharge. - Lab Interpretations I have reviewed the lab results: Yes - RAD Interpretation Narrative RAD Interpretations (Text): 09/10/18 14:10 Chest X-ray: Dictator : Navi Tesfaye MD FINDINGS: LUNGS: No active pulmonary disease. PLEURA: No significant pleural effusion identified, no pneumothorax apparent. CARDIOVASCULAR: No aortic atherosclerotic calcification present. Moderate cardiomegaly no pulmonary vascular congestion. OSSEOUS STRUCTURES: No significant abnormalities. VISUALIZED UPPER ABDOMEN: Normal. OTHER FINDINGS: Single lead pacemaker IMPRESSION: No active disease. Flat Sheet Maker: Radiologist - EKG Interpretation EKG Interpretation (Text): 09/10/18 11:46 EKG shows NSR at 85 BPM with LVH, early repolarization, and flipped T wave in leads V5, V6, II. Interpreted by me. Interpreted by ED Physician: Yes Type: 12 lead EKG - Scribe Statement The provider has reviewed the documentation as recorded by the Scribe Sourav Kenia Provider Scribe Attestation: All medical record entries made by the Scribe were at my direction and personally dictated by me. I have reviewed the chart and agree that the record accurately reflects my personal performance of the history, physical exam, medical decision making, and the department course for this patient. I have also personally directed, reviewed, and agree with the discharge instructions and disposition. Disposition/Present on Arrival - Present on Arrival Any Indicators Present on Arrival: No History of DVT/PE: No History of Uncontrolled Diabetes: No Urinary Catheter: No History of Decub. Ulcer: No History Surgical Site Infection Following: None - Disposition Have Diagnosis and Disposition been Completed?: Yes Diagnosis: Right leg swelling, Right arm pain Disposition: HOME/ ROUTINE Disposition Time: 16:15 Patient Plan: Discharge Patient Problems: Current Active Problems Problem Status Onset Right leg swelling Acute Right arm pain Acute Condition: IMPROVED Discharge Instructions (ExitCare): Muscle and Bone Pain (DC), Lymphedema (DC) Print Language: PRYDEINIG Additional Instructions: All medical record entries made by the Scribe were at my direction and personally dictated by me. I have reviewed the chart and agree that the record accurately reflects my personal performance of the history, physical exam, medical decision making, and the department course for this patient. I have also personally directed, reviewed, and agree with the discharge instructions and disposition. Prescriptions: Naproxen 500 mg PO BID #10 tab Referrals: Carisa Armstrong MD [Primary Care Provider] - Follow up with primary Forms: [employer] (Vietnamese)
[2018-09-10 13:35] LABS: BASO # 0.01 K/mm3 (0.0-2.0); BASO % 0.2 % (0.0-3.0); EOS # 0.3 (0.0-0.7); EOS % 5.1 % (1.5-5.0); GRAN # 3.38 (1.4-6.5); GRAN % 59.4 % (50.0-68.0); HEMOGLOBIN 10.5 g/dL (12.0-16.0); LYMPH # 1.5 (1.2-3.4); LYMPH % 26.5 % (22.0-35.0); MEAN CELL VOLUME 77.4 fl (80.0-105.0); MEAN PLATELET VOLUME 9.9 fl (7.0-11.0); MONO # 0.5 (0.1-0.6); MONO % 8.8 % (1.0-6.0); RBC 4.38 10^6/uL (3.5-6.1); RED CELL DISTRIBUTION WIDTH 18.6 % (11.5-14.5); WHITE BLOOD COUNT 5.7 10^3/uL (4.5-11.0)
[2018-09-10 13:42] LABS: ALB/GLOB RATIO 1.1 (1.1-1.8); ALBUMIN 3.8 g/dL (3.0-4.8); ALT/SGPT 66 U/L (7-56); AST/SGOT 63 U/L (14-36); BLOOD UREA NITROGEN 16 mg/dL (7-21); CALCIUM 9.4 mg/dL (8.4-10.5); GFR NON-AFRICAN AMERICAN > 60
[2018-09-10 13:44] LABS: INR 1.01; PARTIAL THROMBOPLASTIN TIME 28.6 Seconds (25.1-36.5); PROTHROMBIN TIME 11.6 SECONDS (9.4-12.5)
[2018-09-10 13:53] LABS: B-TYPE NATRIURETIC PEPTIDE 1030 pg/mL (0-450); TROPONIN I < 0.01 ng/mL
--- NOTE | 2018-09-10 14:05 | RAD ---
Date of service: 09/10/2018 HISTORY: arm pain COMPARISON: 08/02/2018 FINDINGS: LUNGS: No active pulmonary disease. PLEURA: No significant pleural effusion identified, no pneumothorax apparent. CARDIOVASCULAR: No aortic atherosclerotic calcification present. Moderate cardiomegaly no pulmonary vascular congestion. OSSEOUS STRUCTURES: No significant abnormalities. VISUALIZED UPPER ABDOMEN: Normal. OTHER FINDINGS: Single lead pacemaker IMPRESSION: No active disease.
[2018-09-10] MEDS ORDERED: Labetalol 5 mg/ml Inj 20ML IV STA (14:23)
[2018-09-10 16:34] VITALS: BP 138/81; PULSE 76; RESP 17
--- NOTE | 2018-09-10 16:52 | US ---
PROCEDURE: Right upper extremity venous US CLINICAL HISTORY: Arm pain and swelling Evaluate for deep venous thrombosis. PHYSICIAN(S): Phil Bolton M.D FINDINGS: The visualized rightinternal jugular vein is sonographically normal and compressible. No evidence of obstruction or thrombus is seen. The visualized segments of the right subclavian vein are patent with normal waveforms. No sonographic evidence of obstruction or thrombosis is seen. The visualized deep venous system of the proximal right upper extremity is sonographically normal and compressible. IMPRESSION: 1. No sonographic evidence for deep venous thrombosis in the visualized segments of the right upper extremity.
--- NOTE | 2018-09-10 17:08 | CARD ---
APPROVED REPORT Date of service: 09/10/2018 EKG Measurement Heart [id number] <Conclusion> Poor data quality, interpretation may be adversely affected Normal sinus rhythm Left ventricular hypertrophy with repolarization abnormality Abnormal ECG
[2018-09-10 19:20] VITALS: TEMP 98.5; O2SAT 98
== END 2018-09-10 16:35 | disposition home or self-care (01) ==
LOC: ED 10:44
DX: M79.601 Pain in right arm (principal); M79.89 Other specified soft tissue disorders; E11.9 Type 2 diabetes mellitus without complications; I50.9 Heart failure, unspecified; M32.9 Systemic lupus erythematosus, unspecified; M35.2 Behcet's disease; I10 Essential (primary) hypertension; M79.7 Fibromyalgia; Z86.73 Personal history of transient ischemic attack (TIA), and cerebral infarction without residual deficits; Z95.0 Presence of cardiac pacemaker
CPT/HCPCS: 71045; 80053; 83735; 83880; 84484; 85025; 85378; 85610; 85651; 85730; 93005; 93971; 96374; 96375; 99285; J1885

== ENCOUNTER 2018-12-01 12:33 | Observation (INO) | payer OTHER ==
[2018-12-01 12:33] VITALS: BMI 35.0
[2018-12-01] MEDS ORDERED: DiphenhydrAMINE 50 mg/ml Inj IVP STA (13:01)
--- NOTE | 2018-12-01 14:11 | ED PDOC ---
Arrival/HPI <Rito Kulkarni - Last Filed: 12/01/18 20:56> - General Historian: Patient - History of Present Illness Narrative History of Present Illness (Text): 12/01/18 13:10 A 53 year old female, whose past medical history includes HTN, CHF, DM, GERD, and hyperlipidemia, presents to the emergency department complaining of shortness of breath x 1 day. Patient reports last night she took tramadol for joint pain and began to experience throat swelling, general itchiness, and anxiety. Patient notes symptoms persisted this morning prompting her visit to the ER. Patient states she never taken tramadol before until last night and she takes her home medication as prescribed. Currently c/o SOB that she attributes to anxiety. States this feels different from her CHF exacerbations. Patient denies any fever, chills, chest pain, diarrhea, nausea, vomiting, urinary symp toms, back pain, neck pain, headache, dizziness, cough, congestion, lip, mouth, or tongue swelling, or any other complaints. Time/Duration: 24 hours Symptom Onset: Gradual Symptom Course: Improving Activities at Onset: Light Context: Home <Kiki Kimbrough - Last Filed: 12/02/18 01:30> - General Chief Complaint: Shortness Of Breath Time Seen by Provider: 12/01/18 13:09 Past Medical History - Provider Review Nursing Documentation Reviewed: Yes - Past History Past History: No Previous - Infectious Disease Hx of Infectious Diseases: None - Tetanus Immunization Tetanus Immunization: Unknown - Reproductive Menopause: Yes - Cardiac Hx Cardiac Disorders: Yes Hx Congestive Heart Failure: Yes Hx Hypertension: Yes - Pulmonary Hx Respiratory Disorders: No - Neurological Hx Neurological Disorder: Yes HX Cerebrovascular Accident: Yes - HEENT Hx HEENT Disorder: Yes (Wears glasses.) - Renal Hx Renal Disorder: No - Endocrine/Metabolic Hx Diabetes Mellitus Type 2: Yes - Hematological/Oncological Hx Blood Disorders: Yes Hx Anemia: Yes (with blood transfusion) - Integumentary Hx Dermatological Disorder: No - Musculoskeletal/Rheumatological Hx Falls: No - Gastrointestinal Hx Gastrointestinal Disorders: Yes Hx Gastroesophageal Reflux: Yes - Genitourinary/Gynecological Hx Genitourinary Disorders: No - Psychiatric Hx Psychophysiologic Disorder: No Hx Substance Use: No - Surgical History Hx Cardiac Catheterization: Yes Other/Comment: defibrillator 2010 - Anesthesia Hx Anesthesia: Yes Hx Anesthesia Reactions: No Hx Malignant Hyperthermia: No - Suicidal Assessment Feels Threatened In Home Enviroment: No <Kiki Kimbrough - Last Filed: 12/02/18 01:30> Family/Social History - Physician Review Nursing Documentation Reviewed: Yes Family/Social History: No Known Family HX Smoking Status: Never Smoked Hx Alcohol Use: No Hx Substance Use: No Hx Substance Use Treatment: No <Kiki Kimbrough - Last Filed: 12/02/18 01:30> Allergies/Home Meds <Rito Kulkarni - Last Filed: 12/01/18 20:56> <Kiki Kimbrough - Last Filed: 12/02/18 01:30> Allergies/Adverse Reactions: Allergies acetaminophen Allergy (Verified 09/10/18 11:08) ANGIOEDEMA cefepime Allergy (Verified 09/10/18 11:08) ANAPHYLAXIS tramadol Allergy (Verified 12/01/18 18:15) ANGIOEDEMA eggs Allergy (Uncoded 12/01/18 18:15) ANGIOEDEMA seafoods Adverse Reaction (Uncoded 12/01/18 17:02) SWELLING Home Medications: Home Meds Medication Instructions Recorded Confirmed Furosemide [Lasix] 40 mg PO BID 10/17/15 12/01/18 Epinephrine HCl [Epipen 0.3 mg IM ONCE PRN 03/26/17 12/01/18 Auto-Injector] Carvedilol [Coreg] 12.5 mg PO BID 12/01/18 12/01/18 Ergocalciferol (Vitamin D2) 50,000 unit PO QWK 12/01/18 12/01/18 [Vitamin D2] Ferrous Sulfate [Feosol] 325 mg PO DAILY 12/01/18 12/01/18 Multivitamin [Daily Birdie] 1 tab PO DAILY 12/01/18 12/01/18 Omeprazole 20 mg PO DAILY 12/01/18 12/01/18 Potassium Chloride [Klor-Con M20] 20 meq PO BID 12/01/18 12/01/18 Prednisone [Rl] 1 mg PO DAILY 12/01/18 12/01/18 Triamcinolone 0.1% [Triamcinolone 0.1 % TP TID 12/01/18 12/01/18 0.1% Cream] Review of Systems - Physician Review All systems were reviewed & negative as marked: Yes - Review of Systems Constitutional: Normal. absent: Fevers, Other (chills) Eyes: Normal. absent: Vision Changes ENT: Other (throat swelling). absent: Sore Throat, Sinus Congestion Respiratory: SOB. absent: Cough, Wheezing Cardiovascular: Normal. absent: Chest Pain, Palpitations, Syncope Gastrointestinal: Normal. absent: Abdominal Pain, Stool Changes, Diarrhea, Nausea, Vomiting, Appetite Changes Genitourinary Female: Normal. absent: Dysuria, Frequency Musculoskeletal: Normal. absent: Back Pain, Neck Pain Skin: Other (general itchiness ) Neurological: absent: Headache, Dizziness Psychiatric: Anxiety <Kiki Kimbrough - Last Filed: 12/02/18 01:30> Physical Exam Vital Signs Temp Pulse Pulse Resp BP Pulse Ox 12/01/18 18:47 102 H 19 12/01/18 18:00 93 H 12/01/18 17:30 98 F 76 118/53 L 99 12/01/18 16:00 98 F 102 H 19 128/72 98 12/01/18 14:56 100 12/01/18 12:54 80 19 152/76 H 100 12/01/18 12:52 100 12/01/18 12:49 98 F 73 19 100 <Mendez Kulkarnian - Last Filed: 12/01/18 20:56> Vital Signs Reviewed: Yes Vital Signs Temp Pulse Resp BP Pulse Ox 12/01/18 12:54 80 19 152/76 H 100 12/01/18 12:52 100 12/01/18 12:49 98 F 73 19 100 Temperature: Afebrile Blood Pressure: Normal Pulse: Regular Respiratory Rate: Normal Appearance: Positive for: Non-Toxic, Uncomfortable, Other (obese) Pain Distress: None Mental Status: Positive for: Alert and Oriented X 3 - Systems Exam Head: Present: Atraumatic, Normocephalic Pupils: Present: PERRL Extroacular Muscles: Present: EOMI Conjunctiva: Present: Normal Mouth: Present: Moist Mucous Membranes Pharnyx: Present: Normal. No: ERYTHEMA, EXUDATE, TONSILS ENLARGED, Peritonsilar Swelling, Uvular Deviation, Muffled/Hoarse Voice, Strider, Soft Palate/Uvular Edema Nose (External): Present: Atraumatic Nose (Internal): Present: Normal Inspection Neck: Present: Normal Range of Motion Respiratory/Chest: Present: Wheezes (intermittent bilateral expiratory wheezing), Decreased Breath Sounds. No: Respiratory Distress, Accessory Muscle Use Cardiovascular: Present: Regular Rate and Rhythm, Normal S1, S2, Peripheal Pulses Present Abdomen: Present: Normal Bowel Sounds. No: Tenderness, Distention, Peritoneal Signs, Rebound, Guarding Upper Extremity: Present: Normal Inspection, Normal ROM, NORMAL PULSES, Ne urovascularly Intact, Capillary Refill < 2s. No: Cyanosis, Temperature Abnormalties Lower Extremity: Present: Edema (mild bilateral lower extremity edema), Normal ROM, Neurovascularly Intact Neurological: Present: GCS=15, CN II-XII Intact, Speech Normal, Motor Func Grossly Intact, Normal Sensory Function, Gait Normal Skin: Present: Warm, Dry, Normal Color. No: Rashes, Diaphoretic Lymphatic: No: Cervical Adenopathy Psychiatric: Present: Alert, Oriented x 3, Normal Insight, Normal Concentration, Normal Affect, Normal Mood <Kiki Kimbrough - Last Filed: 12/02/18 01:30> Medical Decision Making - Lab Interpretations Lab Results: PT 11.7 SECONDS (9.4-12.5) 12/01/18 17:42 INR 1.05 12/01/18 17:42 APTT 33.3 Seconds (26.9-38.3) 12/01/18 17:42 D-Dimer, Quantitative 461 ng/mlDDU (0-243) H 12/01/18 16:30 Troponin I < 0.01 ng/mL 12/01/18 14:06 NT-Pro-B Natriuret Pep 727 pg/mL (0-450) H 12/01/18 14:06 Total Bilirubin 0.4 mg/dL (0.2-1.3) 12/01/18 14:06 AST 26 U/L (14-36) 12/01/18 14:06 ALT 31 U/L (7-56) 12/01/18 14:06 Alkaline Phosphatase 102 U/L (38-126) 12/01/18 14:06 Total Protein 7.7 g/dL (5.8-8.3) 12/01/18 14:06 Albumin 4.0 g/dL (3.0-4.8) 12/01/18 14:06 Globulin 3.8 gm/dL 12/01/18 14:06 Albumin/Globulin Ratio 1.1 (1.1-1.8) 12/01/18 14:06 Urine Color Light yellow (YELLOW) 12/01/18 16:45 Urine Appearance Slight-cloudy (CLEAR) 12/01/18 16:45 Urine pH 6.5 (4.7-8.0) 12/01/18 16:45 Ur Specific [place] 1.020 (1.005-1.035) 12/01/18 16:45 Urine Protein 30 mg/dL (<30 mg/dL) H 12/01/18 16:45 Urine Glucose (UA) Negative mg/dL (NEGATIVE) 12/01/18 16:45 Urine Ketones Negative mg/dL (NEGATIVE) 12/01/18 16:45 Urine Blood Moderate (NEGATIVE) H 12/01/18 16:45 Urine Nitrate Negative (NEGATIVE) 12/01/18 16:45 Urine Bilirubin Negative (NEGATIVE) 12/01/18 16:45 Urine Urobilinogen 0.2 E.U./dL (<1 E.U./dL) 12/01/18 16:45 Ur Leukocyte Esterase Large Halima/uL (NEGATIVE) H 12/01/18 16:45 Urine RBC 15 - 20 /hpf (0-2) H 12/01/18 16:45 Urine WBC 25 - 30 /hpf (0-6) H 12/01/18 16:45 Ur Epithelial Cells Many /hpf (0-5) H 12/01/18 16:45 Amorphous Sediment Few /hpf (NONE) 12/01/18 16:45 Urine Bacteria Many /hpf (NONE) 12/01/18 16:45 Coarse Granular Casts Trace /hpf (NONE) 12/01/18 16:45 Urine Other Uyeast /hpf 12/01/18 16:45 - RAD Interpretation Narrative RAD Interpretations (Text): 12/01/18 13:24 Chest X-ray reviewed by radiologist, FINDINGS: LUNGS: No active pulmonary disease. PLEURA: No significant pleural effusion identified, no pneumothorax apparent. CARDIOVASCULAR: No aortic atherosclerotic calcification present. The cardiac silhouette is mildly enlarged. Mild pulmonary vascular congestion. OSSEOUS STRUCTURES: No significant abnormalities. VISUALIZED UPPER ABDOMEN: Normal. OTHER FINDINGS: None. IMPRESSION: Suspicious for cardiomegaly and mild pulmonary vascular congestion Radiology Orders: 12/01/18 13:24 CHEST PORTABLE [RAD] Stat Bullet Assembly Press Operator: Radiologist - Medication Orders Current Medication Orders: Benzocaine/Menthol (Cepacol Sore Throat) 1 nicol MT Q4 PRN PRN Reason: Sore Throat Carvedilol (Coreg) 12.5 mg PO BID NESTOR Famotidine (Pepcid) 20 mg PO 1000,2200 NESTOR Furosemide (Lasix) 40 mg PO BID NESTOR Levalbuterol HCl (Xopenex) 0.63 mg IH TIDRESP NESTOR Methylprednisolone (Solu-Medrol) 40 mg IVP Q8 NESTOR Naproxen (Anaprox Ds) 550 mg PO Q8 PRN PRN Reason: Temperature and pain Potassium Chloride (K-Dur 20 Meq Er Tab) 20 meq PO BID NESTOR Discontinued Medications Diphenhydramine HCl (Benadryl) 25 mg IVP STAT STA Stop: 12/01/18 13:02 Last Admin: 12/01/18 13:10 Dose: 25 mg IVP Administration Document 12/01/18 13:10 GMI (Rec: 12/01/18 13:10 [facility] Charges for Administration # of IVP Administrations 1 Famotidine (Pepcid) 20 mg IVP STAT STA Stop: 12/01/18 13:02 Last Admin: 12/01/18 13:09 Dose: 20 mg IVP Administration Document 12/01/18 13:09 GMI (Rec: 12/01/18 13:09 [facility] Charges for Administration # of IVP Administrations 1 Methylprednisolone (Solu-Medrol) 125 mg IVP STAT STA Stop: 12/01/18 13:02 Last Admin: 12/01/18 13:07 Dose: Not Given Non-Admin Reason: double entry Ondansetron HCl (Zofran Inj) 4 mg IVP STAT STA Stop: 12/01/18 13:41 Last Admin: 12/01/18 13:42 Dose: 4 mg IVP Administration Document 12/01/18 13:42 GMI (Rec: 12/01/18 13:42 [facility] Charges for Administration # of IVP Administrations 1 Pneumococcal Polyvalent Vaccine (Pneumovax 23 Vaccine) 0.5 ml IM .ONCE ONE Stop: 12/01/18 19:07 <Rito Kulkarni - Last Filed: 12/01/18 20:56> ED Course and Treatment: 12/01/18 13:10 Impression: 53 year old female presents to the emergency department complaining of shortness of breath. Plan: -- Benadryl -- Pepcid -- Solumedrol On initial exam, patient well appearing but uncomfortably. Mildly SOB, reports anxiety. No stridor, able to speak in full sentences. o2sat 100 on room air. no soft palate edema, appreciated neck swelling. Mild skin redness, no rash. Prior Visits: Notes and results from previous visits were reviewed. Progress Notes: 13:20 Patient examined at bedside by Dr. Farris, who recommends workup for SOB. Pt currently vomiting, Zofran ordered by Dr. Farris. -- Bloodowrk -- Troponin -- Dimer -- Coags -- BNP -- Urine -- EKG -- CXR -- CTA CBC, CMP unremarkable EKG similar to prior, troponin negative BNP 727 Dimer elevated, CTA already ordered 1435 Discussed diagnostic testing results with Dr. Farris, who accepted patient for inpatient telemetry observation, asks for admitting diagnosis of COPD secondary to wheezing. Requests cardiology consult. Pending urine. Patient made aware of change in disposition. Resting comfortably in stretcher with stable vital signs at this time. 1500 On repeat lung exam, wheezing has resolved. Informed by nursing that IV line is unusable for CTA, need a new one placed. Nursing and slab polisher unsuccessful. ED attending Dr. Kulkarni attempted to place IV line via US, unsuccessful. 22G IV line placed in right arm by nurse Wanda. Patient continues to complain of throat discomfort, Dr. Farris made aware. [address] scan that patient now refusing CTA secondary to allergy to IV contrast. Dr. Farris made aware. Advises V/Q scan after patient goes upstairs to floor. Scan ordered, Dr. Farris will follow. - Lab Interpretations Lab Results: 12/01/18 14:06 12/01/18 14:06 Lab Results 12/01/18 14:06: Sodium 139, Potassium 3.8, Chloride 108 H, Carbon Dioxide 23, Anion Gap 12, BUN 17, Creatinine 0.8, Est GFR ( Amer) > 60, Est GFR (Non- Af Amer) > 60, Random Glucose 86, Calcium 9.2, Total Bilirubin 0.4, AST 26, ALT 31, Alkaline Phosphatase 102, Troponin I < 0.01, NT-Pro-B Natriuret Pep 727 H, Total Protein 7.7, Albumin 4.0, Globulin 3.8, Albumin/Globulin Ratio 1.1 12/01/18 14:06: WBC 6.5, RBC 4.97, Hgb 13.0 D, Hct 41.1, MCV 82.7 D, MCH 26.2, MCHC 31.6, RDW 19.8 H, Plt Count 263, MPV 10.5, Neut % (Auto) 52.8, Lymph % (Auto) 34.3, [place] % (Auto) 8.5 H, Eos % (Auto) 3.9, Baso % (Auto) 0.5, Lymph # (Auto) 2.2, [place] # (Auto) 0.6, Eos # (Auto) 0.3, Baso # (Auto) 0.03, Absolute Neuts (auto) 3.42 I have reviewed the lab results: Yes - RAD Interpretation Radiology Orders: 12/01/18 13:24 CHEST PORTABLE [RAD] Stat - EKG Interpretation EKG Interpretation (Text): Rate 86; NSR; LVH; Normal Intervals; No STEMI, nonspecific ST/T wave changes Interpreted by ED Physician: Yes Type: 12 lead EKG Comparison: Com.w/previous EKG (09/10/18) - Medication Orders Current Medication Orders: Discontinued Medications Diphenhydramine HCl (Benadryl) 25 mg IVP STAT STA Stop: 12/01/18 13:02 Last Admin: 12/01/18 13:10 Dose: 25 mg IVP Administration Document 12/01/18 13:10 GMI (Rec: 12/01/18 13:10 [facility] Charges for Administration # of IVP Administrations 1 Famotidine (Pepcid) 20 mg IVP STAT STA Stop: 12/01/18 13:02 Last Admin: 12/01/18 13:09 Dose: 20 mg IVP Administration Document 12/01/18 13:09 GMI (Rec: 12/01/18 13:09 [facility] Charges for Administration # of IVP Administrations 1 Methylprednisolone (Solu-Medrol) 125 mg IVP STAT STA Stop: 12/01/18 13:02 Last Admin: 12/01/18 13:07 Dose: Not Given Non-Admin Reason: double entry Ondansetron HCl (Zofran Inj) 4 mg IVP STAT STA Stop: 12/01/18 13:41 Last Admin: 12/01/18 13:42 Dose: 4 mg IVP Administration Document 12/01/18 13:42 GMI (Rec: 12/01/18 13:42 GMI [facility] [id number]) Charges for Administration # of IVP Administrations 1 <Kiki Kimbrough - Last Filed: 12/02/18 01:30> - Scribe Statement The provider has reviewed the documentation as recorded by the Jerry Villeda All medical record entries made by the Scribe were at my direction and personally dictated by me. I have reviewed the chart and agree that the record accurately reflects my personal performance of the history, physical exam, medical decision making, and the department course for this patient. I have also personally directed, reviewed, and agree with the discharge instructions and disposition. <Kiki Kimbrough - Last Filed: 12/02/18 01:30> Disposition/Present on Arrival <Rito Kulkarni - Last Filed: 12/01/18 20:56> - Present on Arrival Any Indicators Present on Arrival: No History of DVT/PE: No History of Uncontrolled Diabetes: No Urinary Catheter: No History of Decub. Ulcer: No History Surgical Site Infection Following: None - Disposition Have Diagnosis and Disposition been Completed?: Yes Disposition Time: 14:40 Patient Plan: Observation, Telemetry <Kiki Kimbrough - Last Filed: 12/02/18 01:30> - Disposition Diagnosis: Congestive heart failure (CHF), Allergic reaction Disposition: HOSPITALIZED Patient Problems: Current Active Problems Problem Status Onset Allergic reaction Acute Congestive heart failure (CHF) Acute Condition: GUARDED
[2018-12-01 14:12] LABS: BASO # 0.03 K/mm3 (0.0-2.0); BASO % 0.5 % (0.0-3.0); EOS # 0.3 (0.0-0.7); EOS % 3.9 % (1.5-5.0); LYMPH # 2.2 (1.2-3.4); LYMPH % 34.3 % (22.0-35.0); MEAN CELL VOLUME 82.7 fl (80.0-105.0); MEAN CORPUSCULAR HEMOGLOBIN 26.2 pg (25.0-35.0); MEAN CORPUSCULAR HGB CONC 31.6 g/dl (31.0-37.0); MEAN PLATELET VOLUME 10.5 fl (7.0-11.0); MONO # 0.6 (0.1-0.6); MONO % 8.5 % (1.0-6.0); RBC 4.97 10^6/uL (3.5-6.1); RED CELL DISTRIBUTION WIDTH 19.8 % (11.5-14.5); WHITE BLOOD COUNT 6.5 10^3/uL (4.5-11.0)
--- NOTE | 2018-12-01 14:19 | RAD ---
Date of service: 12/01/2018 HISTORY: sob COMPARISON: Comparison is made with 09/10/2018 FINDINGS: LUNGS: No active pulmonary disease. PLEURA: No significant pleural effusion identified, no pneumothorax apparent. CARDIOVASCULAR: No aortic atherosclerotic calcification present. The cardiac silhouette is mildly enlarged. Mild pulmonary vascular congestion. OSSEOUS STRUCTURES: No significant abnormalities. VISUALIZED UPPER ABDOMEN: Normal. OTHER FINDINGS: None. IMPRESSION: Suspicious for cardiomegaly and mild pulmonary vascular congestion
[2018-12-01 14:22] LABS: ALB/GLOB RATIO 1.1 (1.1-1.8); ALT/SGPT 31 U/L (7-56); AST/SGOT 26 U/L (14-36); BLOOD UREA NITROGEN 17 mg/dL (7-21); CALCIUM 9.2 mg/dL (8.4-10.5); GFR NON-AFRICAN AMERICAN > 60
[2018-12-01 14:33] LABS: B-TYPE NATRIURETIC PEPTIDE 727 pg/mL (0-450); TROPONIN I < 0.01 ng/mL
[2018-12-01] MEDS ORDERED: Iohexol 350 MG/100 ML VIAL ONE (14:49)
[2018-12-01] MEDS ORDERED: Iodixanol 320 MG/ML 100 ML BOTTLE IV ONE (16:40)
[2018-12-01 16:54] LABS: PH,URINE 6.5 (4.7-8.0); URINE BILIRUBIN NEGATIVE (NEGATIVE); URINE BLOOD MODERATE (NEGATIVE); URINE GLUCOSE (UA) NEGATIVE (NEGATIVE); URINE LEUKOCYTE ESTERASE LARGE Leu/uL (NEGATIVE); URINE PROTEIN 30 mg/dL (<30 mg/dL); URINE UROBILINOGEN 0.2 E.U./dL (<1 E.U./dL)
[2018-12-01 16:55] LABS: URINE APPEARANCE SLIGHT-CLOUDY (CLEAR); URINE COLOR LIGHT YELLOW (YELLOW)
[2018-12-01 17:04] LABS: URINE AMORPHOUS SEDIMENT FEW /hpf; URINE BACTERIA MANY /hpf; URINE COARSE GRANULAR CAST TRACE /hpf; URINE EPITHELIAL CELLS MANY /hpf (0-5); URINE RBC 15 - 20 /hpf (0-2); URINE WBC 25 - 30 /hpf (0-6)
[2018-12-01 18:05] LABS: INR 1.05; PARTIAL THROMBOPLASTIN TIME 33.3 Seconds (26.9-38.3); PROTHROMBIN TIME 11.7 SECONDS (9.4-12.5)
[2018-12-01] MEDS ORDERED: Pneumococcal 23-Valent Vaccine IM ONE (19:06)
[2018-12-01] MEDS ORDERED: Benzocaine/Menthol (Cepacol) Lozenge MT PRN (19:12)
[2018-12-01] MEDS ORDERED: Naproxen 550 mg Tab PO PRN (19:15)
[2018-12-01] MEDS: MethylPREDNISolone 40 mg Vial IVP SCH (21:17)
[2018-12-01] MEDS: Levalbuterol 0.63 MG/3 ML Inhal Soln UD IH SCH (22:06)
--- NOTE | 2018-12-01 22:20 | CARD ---
APPROVED REPORT Date of service: 12/01/2018 EKG Measurement Heart [id number] <Conclusion> Normal sinus rhythm Possible Left atrial enlargement Left ventricular hypertrophy Nonspecific T wave abnormality Abnormal ECG
[2018-12-02] MEDS: MethylPREDNISolone 40 mg Vial IVP SCH ×2 (05:28→14:29)
[2018-12-02 06:41] VITALS: O2SAT 97
[2018-12-02] MEDS: Levalbuterol 0.63 MG/3 ML Inhal Soln UD IH SCH ×2 (07:58→13:27)
[2018-12-02] MEDS ORDERED: Potassium Chloride 20 mEq ER Tab PO SCH (10:00)
[2018-12-02 12:20] VITALS: BP 117/68; PULSE 84; RESP 18; TEMP 98
--- NOTE | 2018-12-02 15:40 | CON ---
DATE OF CONSULTATION: 12/02/2018 REQUESTING PHYSICIAN: Sepideh Farris MD REASON FOR CONSULTATION: Dyspnea. HISTORY: This is a 53-year-old woman with a history of nonischemic cardiomyopathy and severe LV dysfunction, who is currently followed at [facility] and is on a cardiac transplantation list. She states that she developed worsening dyspnea yesterday. She states that her symptoms began after taking tramadol for joint pain. She felt that she had some laryngeal edema with pruritus. She became anxious and presented to the emergency room. She was treated with steroids and Benadryl and Zofran with some improvement. She is seen resting comfortably in bed on telemetry. She denies any dyspnea or other symptoms. PAST HISTORY: Notable for the problems mentioned above. She also has a history of diabetes, hypertension, gastroesophageal reflux disease, and hyperlipidemia. She had a defibrillator placed in 2010. This is monitored by Dr. Gómez. FAMILY HISTORY: Multiple family members have reportedly had evidence of congestive heart failure. SOCIAL HISTORY: She is , lives with her . She does not smoke or drink. CURRENT MEDICATIONS: Carvedilol 6.25 mg b.i.d., ferrous sulfate, potassium supplement, Lasix 40 mg b.i.d., omeprazole, prednisone. ALLERGIES: SHE HAS HAD A REACTION TO TRAMADOL, CEFEPIME AND ACETAMINOPHEN IN THE PAST. SHE REPORTEDLY HAD ANGIOEDEMA WITH SEAFOOD EXPOSURE, EGGS, CEFEPIME AND ACETAMINOPHEN. SHE DOES CARRY AN EPIPEN. REVIEW OF SYSTEMS: A 10-point review of systems is notable mainly for the problems mentioned above. PHYSICAL EXAMINATION: GENERAL: She is an overweight middle-aged woman. VITAL SIGNS: Her blood pressure is 108/70 with a pulse of 100 and sinus, respirations are 16. She is afebrile. HEENT: Normocephalic, atraumatic. NECK: Supple. No JVD noted. CHEST: Few scattered rhonchi heard. No rales or wheezing heard. HEART: PMI displaced laterally. Soft tones noted. ABDOMEN: Soft, obese, nontender with normoactive bowel sounds. EXTREMITIES: No edema. SKIN: Warm and dry. PSYCHIATRIC: Normal mood and affect. NEUROLOGIC: Alert and oriented x3. No gross motor or sensory deficits notable. DIAGNOSTIC DATA: White count 6.5, hemoglobin and hematocrit 13 and 41.1 with platelet count 263,000. PT/PTT normal. D-dimer 461. Potassium 3.8, BUN and creatinine 17 and 0.8. BNP 727. Troponin is negative. Electrocardiogram reveals sinus rhythm with LVH, nonspecific abnormalities. Chest x-ray reveals enlarged cardiac silhouette with mild pulmonary vascular congestive changes. IMPRESSION: 1. Recent laryngeal edema, sounds most consistent with drug reaction. 2. History of severe left ventricular dysfunction, being evaluated for possible cardiac transplant. 3. Rest of the problems as noted. RECOMMENDATIONS: From a cardiac standpoint, she appears stable for discharge home at this time. Continued outpatient followup with the heart transplant team at [facility] should continue. We will follow up as needed. Jeffry Betancourt MD LILLY
--- NOTE | 2018-12-03 01:06 | HP ---
DATE OF EXAM: 12/01/2018 HISTORY OF PRESENT ILLNESS: This 53-year-old female was examined in the [facility] emergency room on the morning of 12/01/2018. This case was reviewed in detail with healthcare provider Kiki Kimbrough, Physician Parts Expediter. The patient presented to the emergency room complaining of shortness of breath and throat tightening after taking a dose of Ultracet for arthritic pain. In the emergency room, she was noted to be short of breath with active wheezing and stridor and was treated immediately with IV Benadryl, IV Solu-Medrol and pulmonary toiletry. She is admitted for further evaluation of the above. PAST MEDICAL HISTORY: Extensive and includes cardiomyopathy, chronic hypertension, peptic ulcer disease with gastroesophageal reflux disease, degenerative arthritis, history of rheumatoid arthritis, anxiety neurosis, vitamin D deficiency, iron deficiency and chronic hypertension. MEDICATIONS: The patient states outpatient medications included prednisone, K-Dur, Prilosec, Macrobid, naproxen, multivitamin, Mag Oxide, Ativan, Lasix, Feosol, vitamin D, and Coreg. ALLERGIES: THE PATIENT STATES SHE HAS KNOWN ALLERGIES TO TYLENOL, MAXIPIME, SEAFOOD, AND EGGS. REVIEW OF SYSTEMS: CONSTITUTIONAL: She denied fever or chills. HEENT: Head: No headache or seizure. Eye: No change in visual acuity. Ear: No hearing loss. Throat: She does have swallowing difficulty. NECK: No stiffness. CARDIAC: As per HPI. PULMONARY: She does have shortness of breath with wheezing. GI: She had nausea and vomiting in front of me in the emergency room. : No dysuria. SKIN: No rash. VASCULAR: No claudication. PSYCHOLOGICAL: Chronic anxiety. NEUROLOGICAL: No knowledge of stroke. FAMILY HISTORY: Noncontributory. SOCIAL HISTORY: She is a nondrinker, nonsmoker, non IV drug misuser. SURGICAL HISTORY: Not available. PHYSICAL EXAMINATION: VITAL SIGNS: Temperature at the time of my interview 98, respirations 19, pulse 73, blood pressure 152/76. HEENT: Head: Normocephalic, atraumatic. Eyes: No icterus. Ears: Clear. Throat: Noninjected. NECK: Supple with expiratory stridor. HEART: S1, S2. LUNGS: With wheezing. ABDOMEN: Soft. EXTREMITIES: No edema. SKIN: Without rash. NEUROLOGICAL: Intact. PSYCHOLOGICAL: Anxious. VASCULAR: Legs warm to touch. LABORATORY DATA: White count 6500, hemoglobin 13, hematocrit 41.1, platelets 263,000. PT/INR 1.05, PTT 33.3. Sodium 139, K 3.8, chloride 108, bicarb 23, BUN 17, creatinine 0.8, random blood sugar 86, calcium 9.2. Bilirubin 0.4, AST 26, ALT 31, alk phos 102. Troponin less than 0.01. BNP 727. Urinalysis showed bacteria. Urine culture was sent. IMPRESSION: This is a 53-year-old with a probable ALLERGIC REACTION TO ULTRACET with comorbidities as outlined above. PLAN: At the present time is to admit this patient to the [facility]. Given her SEAFOOD ALLERGY, a CT of the lung cannot be obtained for completeness sake but I have requested a V/Q scan. She will be given orders for naproxen, Benadryl, Coreg, potassium, Lasix, Pepcid, IV Solu-Medrol, Xopenex, and p.r.n. Zofran. She is ordered to have a clear liquid diet. Based on clinical progress, additional diagnostic workup and testing will be entertained. Greater than 75 minutes was spent in the care management, review of labs, orders and x-rays, and discussion of this patient with physician quality assurance assistant, Kiki Kimbrough. All questions were answered. Sepideh Farris MD [facility]
--- NOTE | 2018-12-03 08:54 | DS ---
DATE: 12/02/2018 FINAL DIAGNOSES: Allergic reaction, anaphylaxis to Ultracet with comorbidities of cardiomyopathy, congestive heart failure, chronic hypertension, obesity, peptic ulcer disease with gastroesophageal reflux disease, degenerative arthritis, history of rheumatoid arthritis. DISPOSITION: Home. FOLLOWUP: Followup in my office within the next week. Followup at the [facility] regarding her cardiac transplant followup and consultants that she follows with at the [facility]. DISCHARGE MEDICATIONS: Include Medrol Dosepak as directed. Naprosyn 500 mg p.o. every 8 hours p.r.n. severe pain, Cepacol throat lozenges every 4 hours p.r.n., Coreg 12.5 mg b.i.d., K-Dur 20 mEq b.i.d., Lasix 40 mg p.o. b.i.d., Pepcid 20 mg b.i.d. In summary, this 53-year-old female was admitted to my service with an anaphylactic reaction to Ultracet. In the emergency room, she was noted to have wheezing, stridor and nausea and vomiting and was treated with IV Solu-Cortef, Benadryl and pulmonary toiletry with Xopenex. She had a improvement in her clinical status, was able to tolerate a soft bland diet on the morning of 12/02/2018 and I did review her chest x-ray which showed no active pulmonary disease, no infiltrate, no effusion, no pneumothorax, and her EKG showed normal sinus rhythm. At the time of this dictation, A V/Q scan was completed, but results were pending. The patient was insisting on discharge to home and will complete Macrobid 1 p.o. b.i.d. pending urine culture. The patient was advised for any change in signs and symptoms to represent to the [facility] ER. Greater than 35 minutes was spent in the discharge management of this patient today including review of medication. Orders and instructions and discussion with her nurse Tabatha Vásquez, registered nurse. Sepideh Farris MD LILLY
--- NOTE | 2018-12-03 12:39 | NM ---
Date of service: 12/01/2018 COMPARISON: 03/29/2016. Ventilation perfusion scan. 12/01/2018 single-view chest TECHNIQUE: 30.0 mCi technetium 99-m DTPA aerosol. 4.2 mCI technetium 99-m MAA administered intravenously. FINDINGS: VENTILATION COMPONENT: Normal. Retention of radionuclide in the tracheobronchial tree and ingestion of radionuclide in the stomach, incidental findings PERFUSION COMPONENT: Normal. IMPRESSION: Negative ventilation perfusion scan for pulmonary embolism. Concordant findings (preliminary report) provided by [facility].
== END 2018-12-02 15:16 | disposition home or self-care (01) ==
LOC: ED 12:33 → ERH 14:41 → 2RSO 17:18
PROVIDERS: ADMIT Internal Medicine; ATTEND Internal Medicine
DX: R06.02 Shortness of breath (principal); T39.1X5A Adverse effect of 4-Aminophenol derivatives, initial encounter; I42.9 Cardiomyopathy, unspecified; I50.9 Heart failure, unspecified; I11.0 Hypertensive heart disease with heart failure; E66.9 Obesity, unspecified; K21.9 Gastro-esophageal reflux disease without esophagitis; M19.90 Unspecified osteoarthritis, unspecified site; M06.9 Rheumatoid arthritis, unspecified; E11.9 Type 2 diabetes mellitus without complications; E78.5 Hyperlipidemia, unspecified; F41.1 Generalized anxiety disorder; Z86.73 Personal history of transient ischemic attack (TIA), and cerebral infarction without residual deficits; Z87.11 Personal history of peptic ulcer disease; Z82.49 Family history of ischemic heart disease and other diseases of the circulatory system; Z68.35 Body mass index [BMI] 35.0-35.9, adult; Z88.6 Allergy status to analgesic agent; Z91.012 Allergy to eggs; Z91.013 Allergy to seafood
CPT/HCPCS: 36415; 71045; 78582; 80053; 81001; 83880; 84484; 85025; 85378; 85610; 85730; 87086; 93005; 94640; 94760; 96374; 96375; 96376; 99285; G0378; J1200; J2405; J2920; J2930; Q9967

== ENCOUNTER 2019-01-07 09:39 | Emergency (ER) | payer OTHER ==
[2019-01-07 09:46] VITALS: BMI 34.0
[2019-01-07 10:00] VITALS: TEMP 98.7
--- NOTE | 2019-01-07 10:02 | ED PDOC ---
Arrival/HPI - General Chief Complaint: Upper Extremity Problem/Injury Time Seen by Provider: 01/07/19 09:48 Historian: Patient - History of Present Illness Narrative History of Present Illness (Text): 01/07/19 10:02 53 year old female with a past medical history of HTN, CHF, DM, GERD, and hyperlipidemia presents to the Emergency department complaining of left upper extremity pain and numbness in her left lower extremity that is exacerbated with certain movements since yesterday. Patient reports that she woke up this morning with left shoulder, left neck, left face and left chest pain. She denies similar symptoms in the past. Denies shortness of breath, nausea, vomiting, headaches, or diaphoresis. She also denies smoking, alcohol usage, or any illicit drug use. PMD: Dr. Farris 01/07/19 10:24 Time/Duration: 24 hours Symptom Onset: Gradual Symptom Course: Unchanged Activities at Onset: Light Context: Home Associated Symptoms (Text): 01/07/19 11:38 Patient woke up yesterday morning with the left shoulder left face left chest and left neck pain. She also complains of numbness in her left lower extremity. Cardiac history with milrinone drip. Worse with certain movements. Appears to be a musculoskeletal problem. Past Medical History - Provider Review Nursing Documentation Reviewed: Yes - Past History Past History: No Previous - Infectious Disease Hx of Infectious Diseases: None - Tetanus Immunization Tetanus Immunization: Unknown - Cardiac Hx Cardiac Disorders: Yes Hx Congestive Heart Failure: Yes Hx Hypertension: Yes Other/Comment: L chest pacemaker/defib - Pulmonary Hx Respiratory Disorders: No - Neurological Hx Neurological Disorder: Yes HX Cerebrovascular Accident: Yes - HEENT Hx HEENT Disorder: Yes (Wears glasses.) - Renal Hx Renal Disorder: No - Endocrine/Metabolic Hx Diabetes Mellitus Type 2: Yes - Hematological/Oncological Hx Blood Disorders: Yes Hx Anemia: Yes (with blood transfusion) - Integumentary Hx Dermatological Disorder: No - Musculoskeletal/Rheumatological Hx Falls: No - Gastrointestinal Hx Gastrointestinal Disorders: Yes Hx Gastroesophageal Reflux: Yes - Genitourinary/Gynecological Hx Genitourinary Disorders: No - Psychiatric Hx Psychophysiologic Disorder: No Hx Substance Use: No - Surgical History Hx Cardiac Catheterization: Yes Other/Comment: defibrillator 2010 - Anesthesia Hx Anesthesia: Yes Hx Anesthesia Reactions: No Hx Malignant Hyperthermia: No - Suicidal Assessment Feels Threatened In Home Enviroment: No Family/Social History - Physician Review Nursing Documentation Reviewed: Yes Family/Social History: Unknown Family HX Smoking Status: Never Smoked Hx Alcohol Use: No Hx Substance Use: No Hx Substance Use Treatment: No Allergies/Home Meds Allergies/Adverse Reactions: Allergies acetaminophen Allergy (Verified 01/07/19 09:49) ANGIOEDEMA cefepime Allergy (Verified 01/07/19 09:49) ANAPHYLAXIS tramadol Allergy (Verified 01/07/19 09:49) ANGIOEDEMA eggs Allergy (Uncoded 01/07/19 09:49) ANGIOEDEMA seafoods Adverse Reaction (Uncoded 01/07/19 09:49) SWELLING Home Medications: Home Meds Medication Instructions Recorded Confirmed Furosemide [Lasix] 40 mg PO DAILY 10/17/15 01/07/19 Epinephrine HCl [Epipen 0.3 mg IM ONCE PRN 03/26/17 01/07/19 Auto-Injector] Carvedilol [Coreg] 12.5 mg PO BID 12/01/18 01/07/19 Ergocalciferol (Vitamin D2) 50,000 unit PO QWK 12/01/18 01/07/19 [Vitamin D2] Potassium Chloride [Klor-Con M20] 20 meq PO BID 12/01/18 01/07/19 Prednisone [Rl] 1 mg PO DAILY 12/01/18 01/07/19 Cyclobenzaprine [Flexeril] 1 tab PO BID 01/07/19 01/07/19 Pantoprazole [Protonix EC Tab] 1 tab PO DAILY 01/07/19 01/07/19 azaTHIOprine [Imuran] 100 mg PO BID 01/07/19 01/07/19 Review of Systems - Physician Review All systems were reviewed & negative as marked: Yes - Review of Systems Constitutional: absent: Fatigue, Fevers Respiratory: absent: SOB, Cough, Wheezing Cardiovascular: Chest Pain (left sided). absent: Palpitations, Syncope Gastrointestinal: absent: Abdominal Pain, Nausea, Vomiting Musculoskeletal: Back Pain, Neck Pain (left neck pain), Other (left shoulder pain, left face pain) Neurological: Other (Left lower extremity numbness). absent: Headache, Dizziness, Focal Weakness, Gait Changes Endocrine: absent: Diaphoresis Physical Exam Vital Signs Reviewed: Yes Vital Signs Temp Pulse Resp BP Pulse Ox 01/07/19 09:55 98.7 F 01/07/19 09:52 92 H 18 123/65 99 Temperature: Afebrile Blood Pressure: Normal Pulse: Regular Respiratory Rate: Normal Appearance: Positive for: Well-Appearing, Non-Toxic, Uncomfortable Pain Distress: Mild Mental Status: Positive for: Alert and Oriented X 3 - Systems Exam Head: Present: Atraumatic, Normocephalic Pupils: Present: PERRL Extroacular Muscles: Present: EOMI Conjunctiva: Present: Normal Mouth: Present: Moist Mucous Membranes Pharnyx: No: ERYTHEMA, EXUDATE, TONSILS ENLARGED Neck: Present: Normal Range of Motion, Paraspinal Tenderness (Left paraspinous tenderness). No: MIDLINE TENDERNESS Respiratory/Chest: Present: Clear to Auscultation, Good Air Exchange, Tender to Palpation (left chest wall and ribs). No: Respiratory Distress, Accessory Muscle Use Cardiovascular: Present: Normal S1, S2, Irregular Rhythm. No: Murmurs Abdomen: No: Tenderness, Distention, Peritoneal Signs Back: Present: Other (tenderness to palpation to left trapezius) Upper Extremity: Present: NORMAL PULSES, Tenderness, Neurovascularly Intact, Other (painful limited ROM of left shoulder). No: Cyanosis, Edema, Normal ROM, Swelling, Erythema, Deformity Lower Extremity: Present: Normal Inspection. No: Edema, Tenderness, Swelling Neurological: Present: GCS=15, CN II-XII Intact, Speech Normal, Motor Func Grossly Intact, Normal Sensory Function, Normal Cerebellar Funct Skin: Present: Warm, Dry, Normal Color. No: Rashes Psychiatric: Present: Alert, Oriented x 3, Normal Insight, Normal Concentration Medical Decision Making ED Course and Treatment: 01/07/19 10:20 Impression: 53 year old female presents to the Emergency department complaining of left upper extremity pain and numbness in her left lower extremity that is exacerbated with certain movements. Plan: - CT head - Chest X-ray - ECG - Labs - Toradol - IV fluids - UA -- Reassess and disposition Prior Visits: Notes and results from previous visits were reviewed. Progress Notes: 01/07/19 11:40 EKG shows normal sinus rhythm rate approximately 85 with frequent unifocal PVCs and nonspecific ST and T wave changes. 01/07/19 12:55 Discussed in detail with . I feel that this is probably musculoskeletal chest pain, and noncardiac chest pain. Patient had no improvement with Toradol. She does have an extensive cardiac history, and therefore will be placed on telemetry observation and cardiac consult obtained. 01/07/19 13:23 Arrangements were made for telemetry admission with Dr. Farris and cardiac consultation, but patient refuses and will sign out AMA. She is awake alert and able to make such a decision. - RAD Interpretation Narrative RAD Interpretations (Text): 01/07/19 11:52 Chest X-ray, reviewed by radiologist, show no active disease. CT head, reviewed by radiologist, shows no acute findings. Radiology Orders: 01/07/19 09:54 HEAD W/O CONTRAST [CT] Stat 01/07/19 09:55 CHEST PORTABLE [RAD] Stat Crap Game Box Person: Radiologist - Medication Orders Current Medication Orders: Discontinued Medications Ketorolac Tromethamine (Toradol) 15 mg IVP ONCE ONE Stop: 01/07/19 09:56 - Scribe Statement The provider has reviewed the documentation as recorded by the Scribarvind Buckley, training with mike. All medical record entries made by the Scribe were at my direction and personally dictated by me. I have reviewed the chart and agree that the record accurately reflects my personal performance of the history, physical exam, medical decision making, and the department course for this patient. I have also personally directed, reviewed, and agree with the discharge instructions and disposition. Disposition/Present on Arrival - Present on Arrival Any Indicators Present on Arrival: No History of DVT/PE: No History of Uncontrolled Diabetes: No Urinary Catheter: No History of Decub. Ulcer: No History Surgical Site Infection Following: None - Disposition Have Diagnosis and Disposition been Completed?: Yes Diagnosis: Chest pain, Paresthesia Disposition: AGAINST MEDICAL ADVICE Disposition Time: 12:56 Patient Plan: Observation, Telemetry Condition: GOOD
[2019-01-07 10:35] LABS: BASO # 0.01 K/mm3 (0.0-2.0); BASO % 0.2 % (0.0-3.0); EOS # 0.1 (0.0-0.7); EOS % 2.4 % (1.5-5.0); HEMOGLOBIN 11.7 g/dL (12.0-16.0); LYMPH # 1.9 (1.2-3.4); MEAN CORPUSCULAR HEMOGLOBIN 26.4 pg (25.0-35.0); MEAN CORPUSCULAR HGB CONC 31.4 g/dl (31.0-37.0); MEAN PLATELET VOLUME 10.6 fl (7.0-11.0); MONO # 0.5 (0.1-0.6); MONO % 9.6 % (1.0-6.0); RBC 4.44 10^6/uL (3.5-6.1); WHITE BLOOD COUNT 5.3 10^3/uL (4.5-11.0)
[2019-01-07 10:45] LABS: INR 1.04; PARTIAL THROMBOPLASTIN TIME 31.5 Seconds (26.9-38.3); PROTHROMBIN TIME 11.8 SECONDS (9.4-12.5)
[2019-01-07 10:46] LABS: ALB/GLOB RATIO 1.1 (1.1-1.8); ALBUMIN 3.6 g/dL (3.0-4.8); ALT/SGPT 30 U/L (7-56); AST/SGOT 25 U/L (14-36); BLOOD UREA NITROGEN 15 mg/dL (7-21); CALCIUM 8.8 mg/dL (8.4-10.5); GFR NON-AFRICAN AMERICAN > 60
[2019-01-07 10:57] LABS: TROPONIN I < 0.01 ng/mL
--- NOTE | 2019-01-07 10:57 | CT ---
Date of service: 01/07/2019 PROCEDURE: CT HEAD WITHOUT CONTRAST. HISTORY: left sided numbness COMPARISON: 11/21/2017 TECHNIQUE: Axial computed tomography images were obtained through the head/brain without intravenous contrast. Radiation dose: Total exam DLP = 845.75 mGy-cm. This CT exam was performed using one or more of the following dose reduction techniques: Automated exposure control, adjustment of the mA and/or kV according to patient size, and/or use of iterative reconstruction technique. FINDINGS: HEMORRHAGE: No intracranial hemorrhage. BRAIN: No mass effect or edema. No atrophy or chronic microvascular ischemic changes. VENTRICLES: Unremarkable. No hydrocephalus. CALVARIUM: Unremarkable. PARANASAL SINUSES: Unremarkable as visualized. No significant inflammatory changes. MASTOID AIR CELLS: Unremarkable as visualized. No inflammatory changes. OTHER FINDINGS: None. IMPRESSION: No acute findings
--- NOTE | 2019-01-07 11:01 | RAD ---
Date of service: 01/07/2019 HISTORY: cp COMPARISON: 12/01/2018 FINDINGS: LUNGS: No active pulmonary disease. PLEURA: No significant pleural effusion identified, no pneumothorax apparent. CARDIOVASCULAR: No aortic atherosclerotic calcification present. Normal cardiac size. No pulmonary vascular congestion. OSSEOUS STRUCTURES: No significant abnormalities. VISUALIZED UPPER ABDOMEN: Normal. OTHER FINDINGS: Single lead pacemaker IMPRESSION: No active disease.
[2019-01-07 12:07] VITALS: BP 130/71; PULSE 90; RESP 16; O2SAT 98
[2019-01-07 13:12] LABS: URINE APPEARANCE SL CLOUDY (CLEAR); URINE BILIRUBIN NEGATIVE (NEGATIVE); URINE BLOOD NEGATIVE (NEGATIVE); URINE COLOR YELLOW (YELLOW); URINE GLUCOSE (UA) NEGATIVE (NEGATIVE); URINE LEUKOCYTE ESTERASE SMALL Leu/uL (NEGATIVE); URINE PROTEIN NEGATIVE mg/dL (<30 mg/dL); URINE UROBILINOGEN 0.2 E.U./dL (<1 E.U./dL)
[2019-01-07 13:28] LABS: URINE BACTERIA SMALL /hpf
--- NOTE | 2019-01-07 15:30 | CARD ---
APPROVED REPORT Date of service: 01/07/2019 EKG Measurement Heart [id number] <Conclusion> Sinus rhythm with frequent premature ventricular complexes and fusion complexes Nonspecific T wave abnormality Abnormal ECG
== END 2019-01-07 13:37 | disposition left against medical advice (07) ==
LOC: ED 09:39 → UNDOADMOB 12:53 → ERH 12:53
DX: R07.9 Chest pain, unspecified (principal); R20.2 Paresthesia of skin; I11.0 Hypertensive heart disease with heart failure; I50.9 Heart failure, unspecified; E11.9 Type 2 diabetes mellitus without complications; K21.9 Gastro-esophageal reflux disease without esophagitis; D64.9 Anemia, unspecified; Z86.73 Personal history of transient ischemic attack (TIA), and cerebral infarction without residual deficits; Z95.0 Presence of cardiac pacemaker
CPT/HCPCS: 70450; 71045; 80053; 81001; 82550; 83615; 83735; 84100; 84484; 85025; 85610; 85730; 87086; 93005; 96374; 99285; J1885

== ENCOUNTER 2019-03-11 17:50 | Emergency (ER) | payer OTHER ==
[2019-03-11 18:18] VITALS: BMI 34.2
--- NOTE | 2019-03-11 18:19 | ED PDOC ---
Arrival/HPI - General Historian: Patient - History of Present Illness Narrative History of Present Illness (Text): 03/11/19 18:14 53 yo female w/ PMH of hypertension, HF, CAD w/ stents w/ pacemaker, arthritis, COPD, CVA, on heart transplant list, and Behcet's Syndrome presents to ED evaluation for acute on set of right lower leg pain. Patient states the pain started last night when she was awoken from sleep due to the pain. She called her granddaughter in the morning because of the severe pain. Patient states she took Flexeril and Motrin at home but that offered no pain relief. Patient states the pain is accompanied with numbness and tingling in the lower extremity. Descr ibes pain as constant in nature, radiates from lower back to leg, 10/10 on pain scale. The pain continued throughout the day with no relief which is when the granddaughter decided to call the ambulance to take her grandmom to the hospital. Denies previous episodes. Admits to chills in the day with no recorded temperature. Denies chest pain, nausea/vomiting, constipation or diarrhea, and dysuria. 03/11/19 18:49 Time/Duration: 24 hours Symptom Onset: Sudden Symptom Course: Unchanged Quality: Aching Severity Level: Severe Activities at Onset: Rest <Avril Chavez - Last Filed: 03/11/19 18:42> <Cirilo Garcia - Last Filed: 03/12/19 15:56> - General Chief Complaint: Hip Pain Time Seen by Provider: 03/11/19 18:14 Past Medical History - Provider Review Nursing Documentation Reviewed: Yes - Past History Past History: No Previous - Infectious Disease Hx of Infectious Diseases: None - Tetanus Immunization Tetanus Immunization: Unknown - Cardiac Hx Cardiac Disorders: Yes Hx Congestive Heart Failure: Yes Hx Hypertension: Yes Other/Comment: L chest pacemaker/defib - Pulmonary Hx Respiratory Disorders: No - Neurological Hx Neurological Disorder: Yes HX Cerebrovascular Accident: Yes - HEENT Hx HEENT Disorder: Yes (Wears glasses.) - Renal Hx Renal Disorder: No - Endocrine/Metabolic Hx Diabetes Mellitus Type 2: Yes - Hematological/Oncological Hx Blood Disorders: Yes Hx Anemia: Yes (with blood transfusion) - Integumentary Hx Dermatological Disorder: No - Musculoskeletal/Rheumatological Hx Falls: No - Gastrointestinal Hx Gastrointestinal Disorders: Yes Hx Gastroesophageal Reflux: Yes - Genitourinary/Gynecological Hx Genitourinary Disorders: No - Psychiatric Hx Psychophysiologic Disorder: No Hx Substance Use: No - Surgical History Hx Cardiac Catheterization: Yes Other/Comment: defibrillator 2010 - Anesthesia Hx Anesthesia: Yes Hx Anesthesia Reactions: No Hx Malignant Hyperthermia: No - Suicidal Assessment Feels Threatened In Home Enviroment: No <Scott,Madaser - Last Filed: 03/11/19 18:42> Family/Social History - Physician Review Nursing Documentation Reviewed: Yes Family/Social History: No Known Family HX Smoking Status: Never Smoked Hx Alcohol Use: No Hx Substance Use: No Hx Substance Use Treatment: No <Scott,Madaser - Last Filed: 03/11/19 18:42> Allergies/Home Meds <Scott,Madaser - Last Filed: 03/11/19 18:42> <BosompemCirilo - Last Filed: 03/12/19 15:56> Allergies/Adverse Reactions: Allergies acetaminophen Allergy (Verified 03/11/19 18:16) ANGIOEDEMA cefepime Allergy (Verified 03/11/19 18:16) ANAPHYLAXIS tramadol Allergy (Verified 03/11/19 18:16) ANGIOEDEMA eggs Allergy (Uncoded 03/11/19 18:16) ANGIOEDEMA seafoods Adverse Reaction (Uncoded 03/11/19 18:16) SWELLING Home Medications: Home Meds Medication Instructions Recorded Confirmed Furosemide [Lasix] 40 mg PO DAILY 10/17/15 01/07/19 Epinephrine HCl [Epipen 0.3 mg IM ONCE PRN 03/26/17 01/07/19 Auto-Injector] Carvedilol [Coreg] 12.5 mg PO BID 12/01/18 01/07/19 Ergocalciferol (Vitamin D2) 50,000 unit PO QWK 12/01/18 01/07/19 [Vitamin D2] Potassium Chloride [Klor-Con M20] 20 meq PO BID 12/01/18 01/07/19 Prednisone [Rl] 1 mg PO DAILY 12/01/18 01/07/19 Cyclobenzaprine [Flexeril] 1 tab PO BID 01/07/19 01/07/19 Pantoprazole [Protonix EC Tab] 1 tab PO DAILY 01/07/19 01/07/19 azaTHIOprine [Imuran] 100 mg PO BID 01/07/19 01/07/19 Review of Systems - Physician Review All systems were reviewed & negative as marked: Yes - Review of Systems Constitutional: Normal. absent: Fatigue, Weight Change, Fevers Eyes: Normal. absent: Vision Changes, Photophobia, Eye Pain Respiratory: Normal. absent: SOB, Cough, Sputum, Wheezing Cardiovascular: Normal. absent: Chest Pain, Palpitations, Edema, Calf Pain Gastrointestinal: Normal. absent: Abdominal Pain, Stool Changes, Constipation, Diarrhea, Nausea, Vomiting Genitourinary Female: Normal. absent: Dysuria, Frequency, Hematuria Musculoskeletal: Back Pain, Other (leg pain w/ numbness and tingling extending from lower back) Skin: Normal. absent: Rash, Pruritis Neurological: Normal. absent: Dizziness, Speech Changes Psychiatric: Normal. absent: Anxiety, Depression <ScottMadaser - Last Filed: 03/11/19 18:42> Physical Exam Vital Signs Reviewed: Yes Temperature: Afebrile Blood Pressure: Normal Pulse: Regular Respiratory Rate: Normal Appearance: Positive for: Well-Appearing, Non-Toxic, Comfortable Pain Distress: None Mental Status: Positive for: Alert and Oriented X 3. No: Confused, Agitated, Lethargic - Systems Exam Head: Present: Atraumatic, Normocephalic. No: Tenderness, Contusion, Swelling, Ecchymosis Pupils: Present: PERRL Extroacular Muscles: Present: EOMI Conjunctiva: Present: Normal. No: Injected, Icteric Mouth: Present: Moist Mucous Membranes. No: Dry, Drooling, Trismus Respiratory/Chest: Present: Clear to Auscultation, Good Air Exchange. No: Respiratory Distress Cardiovascular: Present: Normal S1, S2, Tachycardic. No: Murmurs, Irregular Rhythm Abdomen: Present: Normal Bowel Sounds. No: Tenderness, Distention Upper Extremity: Present: Normal Inspection. No: Cyanosis, Edema Lower Extremity: Present: Normal Inspection, Tenderness, Other (right lower extremity tenderness on palpation). No: Edema, CALF TENDERNESS, Swelling, Erythema, Deformity Neurological: Present: GCS=15, CN II-XII Intact, Speech Normal Skin: Present: Warm, Dry, Normal Color Psychiatric: Present: Alert, Oriented x 3, Normal Insight, Normal Concentration <ScottMadaser - Last Filed: 03/11/19 18:42> Vital Signs Temp Pulse Resp BP Pulse Ox 03/11/19 18:19 98.9 F 102 H 18 120/88 100 <Cirilo Garcia - Last Filed: 03/12/19 15:56> Medical Decision Making ED Course and Treatment: 03/11/19 18:35 Impression 53 yo female w/ PMH of hypertension, HF, CAD w/ stents w/ pacemaker, arthritis, COPD, CVA, on heart transplant list, and Behcet's Syndrome presents to ED evaluation for acute onset of right lower leg pain. W/ positive straight leg test, initial diagnosis is sciatica. R/O avascular necrosis due to patient history of being on oral steroids with X-ray imaging Plan -Lumbar Xray -Hip Xray -Lidocaine patch -IM toradol -PO valium -Monitor patient response to above regimen Prior Visits 01/22: chest pain, paresthesias 12/01/18: COPD exacerbation 09/10/18: R hand problem 08/02/18: hematemesis; persistent vomiting 05/2018: menometorrhagia Progress Note pending xray imaging pending clinical response to above plan regimen for sciatica pain 03/11/19 18:43 <Avril Chavez - Last Filed: 03/11/19 18:42> ED Course and Treatment: 03/11/19 19:[address] Gayle with patient pending XRs and CT hip. - RAD Interpretation Radiology Orders: 03/11/19 18:38 Hip Right [HIP MIN 2V W/ PELVIS RT] [RAD] Stat LS SPINE AP/LAT [RAD] Stat - Medication Orders Current Medication Orders: Discontinued Medications Diazepam (Valium) 5 mg PO ONCE ONE; Protocol Stop: 03/11/19 18:25 Last Admin: 03/11/19 18:54 Dose: 5 mg Ketorolac Tromethamine (Toradol) 60 mg IM STAT STA Stop: 03/11/19 18:25 Last Admin: 03/11/19 18:54 Dose: 60 mg MAR Pain Assessment Document 03/11/19 18:54 EQ (Rec: 03/11/19 18:54 EQ [facility] [place] Pain Reassessment Is this a pain reassessment? No Sleep Is patient sleeping during reassessment? No Presence of Pain Presence of Pain Yes IM Administration Charges Document 03/11/19 18:54 EQ (Rec: 03/11/19 18:54 EQ [facility] [place] Charges for Administration # of IM Administrations 1 Lidocaine (Lidoderm) 1 ea TD ONCE ONE Stop: 03/11/19 18:25 Last Admin: 03/11/19 18:53 Dose: 1 ea MAR Transdermal Patch Site Document 03/11/19 18:53 EQ (Rec: 03/11/19 18:54 EQ [facility] [place] Transdermal Patch Site Transdermal Patch Site Right Thigh <Cirilo Garcia - Last Filed: 03/12/19 15:56> Disposition/Present on Arrival - Present on Arrival History of DVT/PE: No History of Uncontrolled Diabetes: No Urinary Catheter: No History Surgical Site Infection Following: None <Avril Chavez - Last Filed: 03/11/19 18:42> - Present on Arrival Any Indicators Present on Arrival: No - Disposition Have Diagnosis and Disposition been Completed?: Yes Disposition Time: 19:00 Patient Plan: Discharge <Cirilo Garcia - Last Filed: 03/12/19 15:56> - Disposition Diagnosis: Hip pain, Sciatica Disposition: HOME/ ROUTINE Condition: GOOD Discharge Instructions (ExitCare): Sciatica (DC), Hip Pain (DC) Print Language: BULGARIAN Additional Instructions: Rest the affected area/Avoid placing any pressure on the area/take meds as prescribed/follow up with your doctor this week Prescriptions: Cyclobenzaprine [Cyclobenzaprine HCl] 10 mg PO TID PRN #15 tab PRN Reason: Muscle Spasm Naproxen [Naprosyn] 500 mg PO BID PRN #14 tab PRN Reason: Pain Forms: [facility]; to (do) Connect (Faroese)
[2019-03-11 18:20] VITALS: BP 120/88; RESP 18; TEMP 98.9
[2019-03-11] MEDS ORDERED: Lidocaine 5% Patch TD ONE (18:24)
--- NOTE | 2019-03-11 19:24 | ED PDOC ---
Physical Exam Vital Signs Reviewed: Yes Vital Signs Temp Pulse Resp BP Pulse Ox 03/11/19 18:19 98.9 F 102 H 18 120/88 100 Temperature: Afebrile Blood Pressure: Normal Pulse: Tachycardic Respiratory Rate: Normal Appearance: Positive for: Well-Appearing, Non-Toxic, Comfortable Pain Distress: None Mental Status: Positive for: Alert and Oriented X 3 Medical Decision Making ED Course and Treatment: 03/11/19 19:23 Patient signed out to me by Dr. Garcia. Pending CT of right hip, x-ray of right hip and l-spine. Patient presented to the emergency department complaining of discomfort to right hip/buttock radiating down right thigh.No history of any trauma. 03/11/19 21:05 LS Spine-No acute process Hip Xray- No acute process 03/11/19 21:42 EXAM: CT right Hip, without IV contrast. CLINICAL HISTORY: RT HIP PAIN TECHNIQUE: Axial images were acquired through the right hip without IV contrast. Reformatted images were reviewed. 945.96 mGy-cm COMPARISON: None provided. FINDINGS: BONES: No acute fracture or aggressive appearing osseous lesion. No periosteal elevation seen. JOINTS: No dislocation. The joint spaces are normal. SOFT TISSUES: There are noted to be several focal soft tissue calcifications along the posterior proximal right femoral cortex of uncertain etiology. This could be dystrophic calcification subsequent to prior trauma or inflammation. No subcutaneous gas is detected. IMPRESSION: No acute osseous abnormality. Tiny focal shanda-femoral soft tissue calcifications seen along the posterior cortex of the proximal right femur are thought possibly subsequent to prior trauma or inflammation. No definite CT evidence of osteomyelitis 03/11/19 21:44 Patient re examined states she feels much better following treatment in emergency department.Signs and symptoms appear consistent with sciatica.Will discharge home with medication RX./follow up with PMD. - RAD Interpretation Radiology Orders: 03/11/19 18:38 Hip Right [HIP MIN 2V W/ PELVIS RT] [RAD] Stat LS SPINE AP/LAT [RAD] Stat 03/11/19 19:05 HIP WITHOUT CONTRAST RIGHT [CT] Stat - Medication Orders Current Medication Orders: Discontinued Medications Diazepam (Valium) 5 mg PO ONCE ONE; Protocol Stop: 03/11/19 18:25 Last Admin: 03/11/19 18:54 Dose: 5 mg Ketorolac Tromethamine (Toradol) 60 mg IM STAT STA Stop: 03/11/19 18:25 Last Admin: 03/11/19 18:54 Dose: 60 mg MAR Pain Assessment Document 03/11/19 18:54 EQ (Rec: 03/11/19 18:54 EQ [place] [id number]) Pain Reassessment Is this a pain reassessment? No Sleep Is patient sleeping during reassessment? No Presence of Pain Presence of Pain Yes IM Administration Charges Document 03/11/19 18:54 EQ (Rec: 03/11/19 18:54 EQ [place] [id number]) Charges for Administration # of IM Administrations 1 Lidocaine (Lidoderm) 1 ea TD ONCE ONE Stop: 03/11/19 18:25 Last Admin: 03/11/19 18:53 Dose: 1 ea MAR Transdermal Patch Site Document 03/11/19 18:53 EQ (Rec: 03/11/19 18:54 [facility] Transdermal Patch Site Transdermal Patch Site Right Thigh Disposition/Present on Arrival - Present on Arrival Any Indicators Present on Arrival: No History of DVT/PE: No History of Uncontrolled Diabetes: No Urinary Catheter: No History of Decub. Ulcer: No History Surgical Site Infection Following: None - Disposition Have Diagnosis and Disposition been Completed?: Yes Diagnosis: Hip pain, Sciatica Disposition: HOME/ ROUTINE Disposition Time: 21:46 Patient Plan: Discharge Patient Problems: Current Active Problems Problem Status Onset Hip pain Acute Condition: GOOD Discharge Instructions (ExitCare): Sciatica (DC), Hip Pain (DC) Additional Instructions: Rest the affected area/Avoid placing any pressure on the area/take meds as pre scribed/follow up with your doctor this week Prescriptions: Cyclobenzaprine [Cyclobenzaprine HCl] 10 mg PO TID PRN #15 tab PRN Reason: Muscle Spasm Naproxen [Naprosyn] 500 mg PO BID PRN #14 tab PRN Reason: Pain Forms: [employer] ([place]ian)
[2019-03-11 22:32] VITALS: PULSE 90; O2SAT 98
--- NOTE | 2019-03-12 07:55 | CT ---
Date of service: 03/11/2019 PROCEDURE: CT right hip without contrast. HISTORY: Right hip Pain. No history of recent/ related trauma provided. March 11, 2019. COMPARISON: Right hip radiographs TECHNIQUE: 2.5 mm axial acquisition and display. Coronal and sagittal reconstructions. Dose report (mGy-cm): 945.96 FINDINGS: There are no osseous abnormalities to suggest fracture. The pelvic ring is intact. Preserved femoral-acetabular relationship. Negative study for protrusio, subluxation or dislocation. Degenerative changes: Mild. IMPRESSION: No significant or acute findings to account for/ related to the clinical presentation. Additional benign and/or incidental findings described above. Concordant results (preliminary interpretation) provided by JENNIFER ESTRADA. Procedure Completed: 20:17. Preliminary Report: Interpreted and electronically signed: 21:15. Final Interpretation: 07:51. March 12, 2019.
--- NOTE | 2019-03-12 08:56 | RAD ---
Date of service: 03/11/2019 PROCEDURE: Pelvis and right hip, three views. HISTORY: hip pain COMPARISON: None TECHNIQUE: Standard protocol for this study/examination. FINDINGS: There are no osseous abnormalities to suggest fracture. The pelvic ring is intact. Preserved femoral-acetabular relationship. Negative study for protrusio, subluxation or dislocation. Degenerative changes: None IMPRESSION: No significant or acute findings to account for/ related to the clinical presentation.
--- NOTE | 2019-03-12 08:58 | RAD ---
Date of service: 03/11/2019 PROCEDURE: Radiographs of the Lumbar Spine. HISTORY: lower extremity pain COMPARISON: No prior. TECHNIQUE: 5 views obtained. FINDINGS: BONES: Normal alignment. No listhesis. No fracture. DISC SPACES: Unremarkable. OTHER FINDINGS: None. IMPRESSION: Unremarkable radiographs of the lumbar spine.
== END 2019-03-11 22:31 | disposition home or self-care (01) ==
LOC: ED 17:50
DX: M25.551 Pain in right hip (principal); M54.30 Sciatica, unspecified side; E11.9 Type 2 diabetes mellitus without complications; I25.10 Atherosclerotic heart disease of native coronary artery without angina pectoris; I50.9 Heart failure, unspecified; I10 Essential (primary) hypertension; Z86.73 Personal history of transient ischemic attack (TIA), and cerebral infarction without residual deficits; Z95.0 Presence of cardiac pacemaker; M35.2 Behcet's disease; Z76.82 Awaiting organ transplant status
CPT/HCPCS: 72100; 73502; 73700; 96372; 99283; J1885